=== PATIENT | male | born 1955 | race Caucasian/White ===

== ENCOUNTER 2016-09-10 22:38 | Observation (INO) | payer OTHER ==
[2016-09-10] MEDS ORDERED: Zithromax 500 MG/ 250 ML NaCl Premix 250 ML IV ONE ×2 (22:44→23:12)
[2016-09-10] MEDS ORDERED: Pepcid 20 MG VIAL IV ONE ×2 (22:44→23:12)
[2016-09-10] MEDS ORDERED: ROCEPHIN 1 Gm-D5w 50 ml Bag** 50 ML IV ONE ×2 (22:44→23:12)
[2016-09-10] MEDS ORDERED: PROVENTIL 2.5 MG/3 ML NEB IH ONE ×2 (22:44→22:56)
[2016-09-10] MEDS ORDERED: Sodium Chloride 0.9% 1000 ML 1,000 ML IV SCH (22:45)
[2016-09-10] MEDS ORDERED: Ativan 2 MG/1 ML VIAL IV ONE (22:46)
[2016-09-10 23:03] LABS: BASOPHIL % 0.4 % (0.0-0.4); Eosinophil % 1.5 % (0.00-5.0); Granulocytes % 59.8 % (36.0-66.0); Lymphocytes % 28.9 % (24.0-44.0); Mean Cell Volume 98.7 fl (78-100); Mean Corpuscular Hemoglobin 32.4 pg (26-32); Mean Platelet Volume 9.3 fl (6-9.5); Monocytes % 9.4 % (0.0-12.0); Platelet Count 188 K/mm3 (150-450); Red Blood Count 4.76 M/mm3 (4.1-5.6); Red Cell Distribution Width 14.4 % (11.5-14.0)
--- NOTE | 2016-09-10 23:09 | ERPHSYRPT ---
- History of Present Illness Time Seen by Provider: 09/10/16 22:40 Source: patient, EMS (gave 2 alb nebs, 1 atrovent, 125mg solumedrol) Patient Subjective Stated Complaint: Pt sts increased shortness of breath x 1 week with exertion. Sts can't get up and walk around much at home due to shortness of breath. Pt sts cough with intermittent sputum production. Sts wheezing. Denies pain, denies chest pain. Denies fever, N/V/D. Triage Nursing Assessment: Pt alert, oriented, answers all questions appropriately in 2-3 word bursts. Skin pink, warm, dry. Resps labored with any exertion. Lung sounds coarse with wheezing all talley. SPO2 90% room air. Pt with pursed lip breathing, suprasternal retractions. Physician History: CC: short of air Hx: 61 [facility] with one week hx of cough, increased wheezing and shortness of air. No fever or chills. Some cough production. No chest pain. Had increased ROMERO today so called EMS. He used puffers at home without relief. Symptoms moderately severe and worse. He smokes quite heavily and he is a heavy daily drinker of alcohol but only drank 2 beers today. Allergies/Adverse Reactions: No Known Drug Allergies Allergy (Verified 09/10/16 22:39) Home Medications: Albuterol/Ipratropium cc [Combivent Inhaler COMMON CANISTER] 15 gm IH QID [History] Budesonide/Formoterol Fumarate [Symbicort 160-4.5 Mcg Inhaler] 10.2 gm IH BID [History] Albuterol 0 gm IH UD 04/28/15 [History] Hx Tetanus, Diphtheria Vaccination/Date Given: No Hx Influenza Vaccination/Date Given: Yes Hx Pneumococcal Vaccination/Date Given: No - Review of Systems Constitutional: Malaise, Weakness, No Fever, No Chills Eyes: No Symptoms Respiratory: Cough, Dyspnea, Wheezing Cardiac: No Chest Pain Abdominal/Gastrointestinal: No Abdominal Pain, No Nausea, No Vomiting Skin: No Rash Neurological: No Headache All Other Systems: Reviewed and Negative - Past Medical History Pertinent Past Medical History: Yes Neurological History: No Pertinent History ENT History: No Pertinent History Cardiac History: No Pertinent History Respiratory History: COPD, Other Endocrine Medical History: No Pertinent History Musculoskeletal History: No Pertinent History GI Medical History: No Pertinent History Psycho-Social History: Other - Past Surgical History Past Surgical History: No - Social History Smoking Status: Current every day smoker How long have you smoked: 50 Exposure to second hand smoke: No Alcohol Use: Chronic (daily throughout the day including work time) Drug Use: none Patient Lives Alone: No - Nursing Vital Signs Nursing Vital Signs: Initial Vital Signs Pulse Rate 100 Respiratory Rate 26 Blood Pressure [] 118/62 Pain Intensity 0 - Physical Exam General Appearance: alert, thin Eye Exam: PERRL/EOMI Neck Exam: normal inspection, non-tender, supple Respiratory Exam: respiratory distress (mild), wheezing Cardiovascular/Chest Exam: normal heart sounds, regular rate/rhythm Abdominal/Gastrointestinal Exam: soft, No tenderness, No distention Extremity Exam: non-tender, normal range of motion, no calf tenderness Neurologic Exam: alert, 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, cooperative, sensation nml, No motor deficits Skin Exam: warm, dry, No rash SpO2 Interpretation: borderline oxygenation SpO2: 90 Oxygen Delivery: Nasal Cannula - Course Nursing assessment & vital signs reviewed: Yes EKG Interpreted by Me: RATE (98), Sinus Rhythm, Right Bundle Branch Block ( incomplete), Non-specific ST Changes, Other (no change from prior) - Radiology Exams cxr X-ray Interpretation: Teleradiologist Report, No Pneumonia, No Pneumothorax, Nml Mediastinum Ordered Tests: Active Orders 24 hr Category Date Time Status CO2 Monitoring STAT Care 09/10/16 22:47 Completed Transmitter Supervisor STAT Care 09/10/16 22:44 Active Clean Catch Urine Specimen STAT Care 09/10/16 22:44 Active EKG-ER Only STAT Care 09/10/16 22:44 Active IV Insertion STAT Care 09/10/16 22:44 Active Oxygen-ED Only NASAL CANNULA 2 lpm Care 09/10/16 22:44 Active Pulse Oximetry (ED) STAT Care 09/10/16 22:44 Active CHEST 1 VIEW (PORTABLE) Stat Exams 09/10/16 22:45 Taken BLOOD CULTURE Stat Lab 09/10/16 22:57 Received CBC W DIFF Stat Lab 09/10/16 22:45 Completed CMP Stat Lab 09/10/16 22:45 Completed Ethyl Alcohol,Urine Stat Lab 09/10/16 23:20 Completed Lactic Acid Urgent Lab 09/10/16 22:44 Completed Lactic Acid Urgent Lab 09/11/16 00:30 Completed MAGNESIUM Stat Lab 09/10/16 22:45 Completed PROTIME WITH INR Stat Lab 09/10/16 22:45 Completed TROPONIN Stat Lab 09/10/16 22:45 Completed UA Stat Lab 09/10/16 23:20 Completed VENOUS BLOOD GAS Stat Lab 09/11/16 00:56 Completed VENOUS BLOOD GAS Urgent Lab 09/10/16 22:44 Completed Respiratory Nebulizer STAT RT 09/10/16 22:45 Completed Medication Summary Generic Name Dose Route Start Last Admin Trade Name Freq PRN Reason Stop Dose Admin Sodium Chloride 1,000 mls @ 100 mls/hr 09/10/16 22:45 09/10/16 23:21 Sodium Chloride 0.9% 1000 Ml IV 10/10/16 22:44 100 mls/hr .Q10H ALYSSA Administration Discontinued Medications Generic Name Dose Route Start Last Admin Trade Name Freq PRN Reason Stop Dose Admin Albuterol Sulfate 2.5 mg 09/10/16 22:44 09/10/16 22:59 Proventil 2.5 Mg/3 Ml Neb IH 09/10/16 22:45 2.5 mg STAT ONE Administration Albuterol Sulfate Confirm 09/10/16 22:56 Proventil 2.5 Mg/3 Ml Neb Administered 09/10/16 22:57 Dose 2.5 mg IH .STK-MED ONE Famotidine 20 mg 09/10/16 22:44 09/11/16 00:02 Pepcid 20 Mg Vial IV 09/10/16 22:45 20 mg STAT ONE Administration Famotidine Confirm 09/10/16 23:12 Pepcid 20 Mg Vial Administered 09/10/16 23:13 Dose 20 mg IV .STK-MED ONE Azithromycin 250 mls @ 125 mls/hr 09/10/16 22:44 09/11/16 00:02 Zithromax 500 Mg/ 250 Ml Nacl Premix IV 09/11/16 00:43 125 mls/hr STAT ONE Administration Ceftriaxone Sodium/Dextrose 50 mls @ 100 mls/hr 09/10/16 22:44 09/10/16 23:21 Rocephin 1 Gm-D5w 50 Ml Bag IV 09/10/16 23:13 100 mls/hr STAT ONE Administration Azithromycin Confirm 09/10/16 23:12 Zithromax 500 Mg/ 250 Ml Nacl Premix Administered 09/10/16 23:13 Dose 250 mls @ ud IV .STK-MED ONE Ceftriaxone Sodium/Dextrose Confirm 09/10/16 23:12 Rocephin 1 Gm-D5w 50 Ml Bag Administered 09/10/16 23:13 Dose 50 mls @ ud IV .STK-MED ONE Lorazepam 1 mg 09/10/16 22:46 09/10/16 23:21 Ativan 2 Mg/1 Ml Vial IV 09/10/16 22:47 1 mg STAT ONE Administration Lorazepam Confirm 09/10/16 23:11 Ativan 2 Mg/1 Ml Vial Administered 09/10/16 23:12 Dose 2 mg .ROUTE .STK-MED ONE Lab/Rad Data: Laboratory Result Diagrams 09/10/16 22:45 09/10/16 22:45 Laboratory Results 09/11/16 09/11/16 09/10/16 Range/Units 00:56 00:30 23:20 WBC (4.0-10.5) K/mm3 RBC (4.1-5.6) M/mm3 Hgb (12.5-18.0) gm/dl Hct (42-50) % MCV (78-100) fl MCH (26-32) pg MCHC (32-36) g/dl RDW (11.5-14.0) % Plt Count (150-450) K/mm3 MPV (6-9.5) fl Gran % (36.0-66.0) % Lymphocytes % (24.0-44.0) % Monocytes % (0.0-12.0) % Eosinophils % (0.00-5.0) % Basophils % (0.0-0.4) % Basophils # (0-0.4) INR (0.8-3.0) VBG pH 7.33 (7.32-7.42) VBG pCO2 at Pat Temp 47 (42-55) mm/Hg VBG pO2 at Pat Temp 56 H (25-40) mm/Hg VBG HCO3 24.8 (22-28) meq/L VBG O2 Sat (Camilo) 91.3 L (95-100) VBG Base Excess -1.6 (-2.0-2.0) VBG Hemoglobin 15.7 VBG Carboxyhemoglobin 7.1 H* (0.0-6.9) % T HGB POC Potassium 3.8 (3.5-5.1) Sodium (136-145) mEq/L Potassium (3.5-5.1) mEq/L Chloride (98-107) mEq/L Carbon Dioxide (21-32) mEq/L Anion Gap (5-15) MEQ/L BUN (9-20) mg/dL Creatinine (0.55-1.30) mg/dl Estimated GFR ML/MIN Glucose (70-110) MG/DL Lactic Acid 1.8 (0.4-2.0) Calcium (8.5-10.1) mg/dL Magnesium (1.8-2.4) mg/dL Total Bilirubin (0.2-1.0) mg/dL AST (15-37) U/L ALT (12-78) U/L Alkaline Phosphatase (46-116) U/L Troponin I (0.000-0.056) ng/ml Serum Total Protein (6.4-8.2) gm/dL Albumin (3.4-5.0) g/dL Ur Collection Type Urine Color (YELLOW) Urine Appearance (CLEAR) Urine pH 5.5 (5-6) Ur Specific [place] (1.005-1.025) Urine Protein (Negative) Urine Glucose (UA) (NEGATIVE) mg/dL Urine Ketones (NEGATIVE) Urine Nitrite (NEGATIVE) Urine Bilirubin (NEGATIVE) Urine Urobilinogen (0-1) mg/dL Urine WBC (Auto) (NEGATIVE) Urine RBC (Auto) (0-5) Luther/ul Urine Ethyl Alcohol 99 H (0.00-20) mg/dl Specimen Received 09/10/16 09/10/16 09/10/16 Range/Units 23:20 22:45 22:45 WBC (4.0-10.5) K/mm3 RBC (4.1-5.6) M/mm3 Hgb (12.5-18.0) gm/dl Hct (42-50) % MCV (78-100) fl MCH (26-32) pg MCHC (32-36) g/dl RDW (11.5-14.0) % Plt Count (150-450) K/mm3 MPV (6-9.5) fl Gran % (36.0-66.0) % Lymphocytes % (24.0-44.0) % Monocytes % (0.0-12.0) % Eosinophils % (0.00-5.0) % Basophils % (0.0-0.4) % Basophils # (0-0.4) INR 0.96 (0.8-3.0) VBG pH (7.32-7.42) VBG pCO2 at Pat Temp (42-55) mm/Hg VBG pO2 at Pat Temp (25-40) mm/Hg VBG HCO3 (22-28) meq/L VBG O2 Sat (Camilo) (95-100) VBG Base Excess (-2.0-2.0) VBG Hemoglobin VBG Carboxyhemoglobin (0.0-6.9) % T HGB POC Potassium (3.5-5.1) Sodium 140 (136-145) mEq/L Potassium 3.5 (3.5-5.1) mEq/L Chloride 101 (98-107) mEq/L Carbon Dioxide 23.0 (21-32) mEq/L Anion Gap 19.1 H (5-15) MEQ/L BUN 19 (9-20) mg/dL Creatinine 0.97 (0.55-1.30) mg/dl Estimated GFR > 60 ML/MIN Glucose 108 (70-110) MG/DL Lactic Acid (0.4-2.0) Calcium 9.1 (8.5-10.1) mg/dL Magnesium 1.7 L (1.8-2.4) mg/dL Total Bilirubin 0.3 (0.2-1.0) mg/dL AST 19 (15-37) U/L ALT 19 (12-78) U/L Alkaline Phosphatase 70 (46-116) U/L Troponin I < 0.017 (0.000-0.056) ng/ml Serum Total Protein 7.3 (6.4-8.2) gm/dL Albumin 3.4 (3.4-5.0) g/dL Ur Collection Type CLEAN CATCH Urine Color YELLOW (YELLOW) Urine Appearance CLEAR (CLEAR) Urine pH 5.5 (5-6) Ur Specific [place] 1.010 (1.005-1.025) Urine Protein NEGATIVE (Negative) Urine Glucose (UA) NEGATIVE (NEGATIVE) mg/dL Urine Ketones TRACE (NEGATIVE) Urine Nitrite NEGATIVE (NEGATIVE) Urine Bilirubin NEGATIVE (NEGATIVE) Urine Urobilinogen 0.2 (0-1) mg/dL Urine WBC (Auto) NEGATIVE (NEGATIVE) Urine RBC (Auto) NEGATIVE (0-5) Luther/ul Urine Ethyl Alcohol (0.00-20) mg/dl Specimen Received 09/10/16:0 09/10/16 09/10/16 Range/Units 22:45 22:44 WBC 11.0 H (4.0-10.5) K/mm3 RBC 4.76 (4.1-5.6) M/mm3 Hgb 15.4 (12.5-18.0) gm/dl Hct 47.0 (42-50) % MCV 98.7 (78-100) fl MCH 32.4 H (26-32) pg MCHC 32.8 (32-36) g/dl RDW 14.4 H (11.5-14.0) % Plt Count 188 (150-450) K/mm3 MPV 9.3 (6-9.5) fl Gran % 59.8 (36.0-66.0) % Lymphocytes % 28.9 (24.0-44.0) % Monocytes % 9.4 (0.0-12.0) % Eosinophils % 1.5 (0.00-5.0) % Basophils % 0.4 (0.0-0.4) % Basophils # 0.04 (0-0.4) INR (0.8-3.0) VBG pH 7.36 (7.32-7.42) VBG pCO2 at Pat Temp 46 (42-55) mm/Hg VBG pO2 at Pat Temp 48 H (25-40) mm/Hg VBG HCO3 26.0 (22-28) meq/L VBG O2 Sat (Cam[place]) 87.5 L (95-100) VBG Base Excess 0.0 (-2.0-2.0) VBG Hemoglobin 15.6 VBG Carboxyhemoglobin 8.4 H* (0.0-6.9) % T HGB POC Potassium 3.6 (3.5-5.1) Sodium (136-145) mEq/L Potassium (3.5-5.1) mEq/L Chloride (98-107) mEq/L Carbon Dioxide (21-32) mEq/L Anion Gap (5-15) MEQ/L BUN (9-20) mg/dL Creatinine (0.55-1.30) mg/dl Estimated GFR ML/MIN Glucose (70-110) MG/DL Lactic Acid 2.7 H (0.4-2.0) Calcium (8.5-10.1) mg/dL Magnesium (1.8-2.4) mg/dL Total Bilirubin (0.2-1.0) mg/dL AST (15-37) U/L ALT (12-78) U/L Alkaline Phosphatase (46-116) U/L Troponin I (0.000-0.056) ng/ml Serum Total Protein (6.4-8.2) gm/dL Albumin (3.4-5.0) g/dL Ur Collection Type Urine Color (YELLOW) Urine Appearance (CLEAR) Urine pH (5-6) Ur Specific [place] (1.005-1.025) Urine Protein (Negative) Urine Glucose (UA) (NEGATIVE) mg/dL Urine Ketones (NEGATIVE) Urine Nitrite (NEGATIVE) Urine Bilirubin (NEGATIVE) Urine Urobilinogen (0-1) mg/dL Urine WBC (Auto) (NEGATIVE) Urine RBC (Auto) (0-5) Luther/ul Urine Ethyl Alcohol (0.00-20) mg/dl Specimen Received - Progress Progress Note: 09/11/16 00:17 Sleeping. Son at bedside. Pulse ox 89-90 on 2L. Still somewhat breathless but resting. Called [facility] admitting- they will check beds and call back. 09/11/16 00:42 [facility] called back and advised Dr Demetri Bob advised admission here at [facility]. 09/11/16 01:03 Repeat lactic improved. pH stable. Called Dr Vogt () and will place in ICU observation for COPD treatment. Will need to observe for alcohol withdrawal. Will see patient in: hospital (observation) Counseled pt/family regarding: lab results, diagnosis, need for follow-up, rad results - Departure Time of Disposition: 01:05 Departure Disposition: Observation Clinical Impression: COPD exacerbation, Chronic alcohol use, Smoker Condition: Fair Critical Care Time: Yes Critical Care Time(excluding separately billable procedures): 30-74 minutes Referrals: [facility]OS[facility],'[facility] [Primary Care Provider] -
[2016-09-10 23:10] LABS: INR 0.96 (0.8-3.0); PROTIME 10.8 SECONDS (8.83-12.87)
[2016-09-10 23:10] LABS: Lactic Acid 2.7 (0.4-2.0); VBG CARBOXYHEMOGLOBIN 8.4 % T HGB (0.0-6.9); VBG HEMOGLOBIN 15.6; VBG O2 SATURATION 87.5 (95-100); VBG POTASSIUM 3.6 (3.5-5.1); VBG pH 7.36 (7.32-7.42)
[2016-09-10] MEDS ORDERED: Ativan 2 MG/1 ML VIAL ONE (23:11)
[2016-09-10] MEDS ORDERED: Sodium Chloride 0.9% 1000 ML 1,000 ML ONE (23:12)
[2016-09-10 23:21] LABS: ALBUMIN 3.4 g/dL (3.4-5.0); ALKALINE PHOSPHATASE 70 U/L (46-116); ANION GAP 19.1 MEQ/L (5-15); BILIRUBIN,TOTAL 0.3 mg/dL (0.2-1.0); BLOOD UREA NITROGEN 19 mg/dL (9-20); CHLORIDE 101 mEq/L (98-107); Glucose 108 MG/DL (70-110); MAGNESIUM 1.7 mg/dL (1.8-2.4); Potassium 3.5 mEq/L (3.5-5.1); SGOT/AST 19 U/L (15-37); SGPT/ALT 19 U/L (12-78); SODIUM 140 mEq/L (136-145); Total Protein 7.3 gm/dL (6.4-8.2)
[2016-09-10 23:31] LABS: TROPONIN < 0.017 ng/ml (0.000-0.056)
[2016-09-10 23:33] LABS: COMPLETE URINE MICROSCOPIC? NO; Collection Type CLEAN CATCH; Ph 5.5 (5-6)
[2016-09-11 00:57] LABS: VBG BASE EXCESS -1.6 (-2.0-2.0); VBG CARBOXYHEMOGLOBIN 7.1 % T HGB (0.0-6.9); VBG HCO3- 24.8 meq/L (22-28); VBG HEMOGLOBIN 15.7; VBG O2 SATURATION 91.3 (95-100); VBG POTASSIUM 3.8 (3.5-5.1); VBG pH 7.33 (7.32-7.42)
[2016-09-11] MEDS ORDERED: TYLENOL 325 MG PO PRN (01:42)
[2016-09-11] MEDS: DUONEB 0.5-3 MG/3 ml Neb IH SCH ×6 (02:01→22:23)
[2016-09-11] MEDS ORDERED: PROVENTIL 2.5 MG/3 ML NEB IH PRN (03:42)
[2016-09-11] MEDS: Advair Hfa 230/21 Mcg COMMON CANISTER IH SCH ×2 (06:40→18:36)
--- NOTE | 2016-09-11 08:57 | XRAY ---
Indication: Cough. COPD. Comparison: April 28, 2015. Portable apical lordotic chest slightly degraded by respiration artifact. Lungs again hyperinflated with a few calcified granulomas. No focal infiltrate, consolidation, or large effusion. Heart and mediastinal structures stable and within normal limits. Bony thorax intact again with mild degenerative changes. Impression: Stable nonacute chest with chronic features. Comment: Preliminary interpretation was made by [facility]. No critical discrepancy.
[2016-09-11] MEDS: Pepcid 20 MG VIAL IV SCH ×2 (10:28→21:38)
--- NOTE | 2016-09-11 11:02 | PCM.SSS ---
History of Present Illness - Chief Complaint Chief Complaint: Shortness of Breath History of Present Illness: Mr.MCKEE GREGORIO is a 61 year old male. patient of [place] arrived by EMS with one week hx of cough, increased wheezing and shortness of air. No fever or chills. Some cough production. No chest pain. Had increased ROMERO today so called EMS. He used puffers at home without relief. Symptoms moderately severe and worse. He smokes quite heavily and he is a heavy daily drinker of alcohol but only drank 2 beers today. - Review of Systems Constitutional: No Fever, No Chills Eyes: No Symptoms Ears, Nose, & Throat: No Symptoms Respiratory: Cough, Short Of Breath Cardiac: No Chest Pain, No Edema, No Syncope Abdominal/Gastrointestinal: No Abdominal Pain, No Nausea, No Vomiting, No Diarrhea Genitourinary Symptoms: No Dysuria Musculoskeletal: No Back Pain, No Neck Pain Skin: No Rash Neurological: No Dizziness, No Focal Weakness, No Sensory Changes Psychological: No Symptoms Endocrine: No Symptoms Hematologic/Lymphatic: No Symptoms Immunological/Allergic: No Symptoms Medications & Allergies Home Medications: Home Medication List Albuterol/Ipratropium cc [Combivent Inhaler COMMON CANISTER] 15 gm IH QID [History Confirmed 09/10/16] Budesonide/Formoterol Fumarate [Symbicort 160-4.5 Mcg Inhaler] 10.2 gm IH BID [History Confirmed 09/10/16] Albuterol 0 gm IH UD 04/28/15 [History Confirmed 09/10/16] Allergies/Adverse Reactions: Allergies Allergy/AdvReac Type Severity Reaction Status Date / Time No Known Drug Allergies Allergy Verified 09/10/16 22:39 - Past Medical History Past Medical History: Yes Neurological History: No Pertinent History ENT History: No Pertinent History Cardiac History: No Pertinent History Respiratory History: COPD, Other Endocrine Medical History: No Pertinent History Musculoskelatal History: No Pertinent History GI Medical History: No Pertinent History Pyscho-Social History: Other - Past Surgical History Past Surgical History: No - Social History Smoking Status: Current every day smoker How long have you smoked: 50 yrs Exposure to second hand smoke: Yes Alcohol: Daily Drug Use: none - Physical Exam Vital Signs: Vital Signs - 24 hr Temp Pulse Resp BP Pulse Ox 09/11/16 10:50 97 05/01/17 10:46 85 28 H 94 L 09/11/16 10:00 88 28 H 94 L 09/11/16 08:00 97.4 F 92 H 28 H 112/71 95 09/11/16 06:41 85 24 96 09/11/16 06:00 88 23 94 L 09/11/16 04:00 97.4 F 94 H 24 124/76 94 L 09/11/16 03:43 75 27 H 94 L 09/11/16 03:00 103 H 27 H 91 L 09/11/16 01:50 97.7 F 104 H 28 H 117/72 90 L 09/11/16 01:07 104 H 28 H 118/69 90 L 09/11/16 01:06 90 L 09/11/16 00:08 100 H 26 H 118/62 90 L 09/10/16 23:29 101 H 24 135/75 90 L 09/10/16 23:11 91 H 25 H 91 L 09/10/16 22:56 90 L 09/10/16 22:53 24 90 L 09/10/16 22:39 97.7 F 101 H 28 H 135/75 90 L Oxygen-Last 24 hours O2 Percentage 50% O2 Percentage 50% O2 Percentage 50% O2 Percentage 50% O2 Percentage 5 Liters = 40% O2 Percentage 2 Liters = 28% O2 Percentage 2 Liters = 28% O2 Percentage 2 Liters = 28% O2 Percentage 2 Liters = 28% General Appearance: no apparent distress, alert Neurologic Exam: alert, 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, cooperative, normal mood/affect, nml cerebellar function, nml station & gait, sensation nml, No motor deficits Eye Exam: PERRL/EOMI, eyes nml inspection Ears, Nose, Throat Exam: normal ENT inspection, TMs normal, pharynx normal, moist mucous membranes Neck Exam: normal inspection, non-tender, supple, full range of motion Respiratory Exam: diminished breath sounds, wheezing, No respiratory distress Cardiovascular Exam: regular rate/rhythm, normal heart sounds, normal peripheral pulses Gastrointestinal/Abdomen Exam: soft, normal bowel sounds, No tenderness, No mass Back Exam: normal inspection, normal range of motion, No CVA tenderness, No vertebral tenderness Extremity Exam: normal inspection, normal range of motion, pelvis stable Skin Exam: normal color, warm, dry, No rash Lymphatic Exam: No adenopathy Results - Other Procedures and Tests Respiratory Therapy 09/11/16 03:00 Respiratory Nebulizer Q4H 09/11/16 03:43 neb [Respiratory Nebulizer] UD 09/11/16 07:00 Respiratory MDI BID Assessment/Plan (1) COPD exacerbation Current Visit: Yes Status: Acute Assessment & Plan: resolved Code(s): J44.1 - CHRONIC OBSTRUCTIVE PULMONARY DISEASE W (ACUTE) EXACERBATION (2) COPD (chronic obstructive pulmonary disease) Current Visit: Yes Status: Resolved Qualifiers: COPD type: COPD with acute exacerbation Qualified Code(s): J44.1 - Chronic obstructive pulmonary disease with (acute) exacerbation (3) COPD exacerbation Current Visit: Yes Status: Acute Code(s): J44.1 - CHRONIC OBSTRUCTIVE PULMONARY DISEASE W (ACUTE) EXACERBATION Hospital Summary - Hospital Course Hospital Course: Chief Complaint Diagnosis Shortness of Breath Allergies Allergy/AdvReac Type Severity Reaction Status Date / Time No Known Drug Allergies Allergy Verified 09/10/16 22:39 Vital Signs (Last 24 hours) Temp Pulse Resp BP Pulse Ox 09/11/16 10:50 97 09/11/16 10:46 85 28 H 94 L 09/11/16 10:00 88 28 H 94 L 09/11/16 08:00 97.4 F 92 H 28 H 112/71 95 09/11/16 06:41 85 24 96 09/11/16 06:00 88 23 94 L 09/11/16 04:00 97.4 F 94 H 24 124/76 94 L 09/11/16 03:43 75 27 H 94 L 09/11/16 03:00 103 H 27 H 91 L 09/11/16 01:50 97.7 F 104 H 28 H 117/72 90 L 09/11/16 01:07 104 H 28 H 118/69 90 L 09/11/16 01:06 90 L 09/11/16 00:08 100 H 26 H 118/62 90 L 09/10/16 23:29 101 H 24 135/75 90 L 09/10/16 23:11 91 H 25 H 91 L 09/10/16 22:56 90 L 09/10/16 22:53 24 90 L 09/10/16 22:39 97.7 F 101 H 28 H 135/75 90 L Current Medications Generic Name Dose Route Start Last Admin Trade Name Freq PRN Reason Stop Dose Admin Acetaminophen 650 mg 09/11/16 01:42 Tylenol 325 Mg PO 10/11/16 01:41 Q4H PRN PRN PAIN AND/OR FEVER Albuterol Sulfate 2.5 mg 09/11/16 03:42 09/11/16 03:46 Proventil 2.5 Mg/3 Ml Neb IH 10/11/16 03:41 2.5 mg Q2H PRN PRN Administration SHORTNESS OF BREATH/WHEEZING Albuterol/Ipratropium 3 ml 09/11/16 03:00 09/11/16 10:43 Duoneb 0.5-3 Mg/3 Ml Neb IH 10/11/16 02:59 3 ml Q4HRT ALYSSA Administration Famotidine 20 mg 09/11/16 10:00 09/11/16 10:28 Pepcid 20 Mg Vial IV 10/11/16 09:59 20 mg Q12HT ALYSSA Administration Ceftriaxone Sodium/Dextrose 50 mls @ 100 mls/hr 09/11/16 22:00 Rocephin 1 Gm-D5w 50 Ml Bag IV 10/11/16 21:59 Q24H22 ALYSSA Azithromycin 250 mls @ 125 mls/hr 09/11/16 22:00 Zithromax 500 Mg/ 250 Ml Nacl Premix IV 10/11/16 21:59 Q24H22 ALYSSA Fluticasone/Salmeterol 2 puff 09/11/16 07:00 09/11/16 06:40 Advair Hfa 230/21 Mcg Common Canister* IH 10/11/16 06:59 2 puff BIDRT ALYSSA Administration Discontinued Medications Generic Name Dose Route Start Last Admin Trade Name Freq PRN Reason Stop Dose Admin Albuterol Sulfate 2.5 mg 09/10/16 22:44 09/10/16 22:59 Proventil 2.5 Mg/3 Ml Neb IH 09/10/16 22:45 2.5 mg STAT ONE Administration Albuterol Sulfate Confirm 09/10/16 22:56 Proventil 2.5 Mg/3 Ml Neb Administered 09/10/16 22:57 Dose 2.5 mg IH .STK-MED ONE Famotidine 20 mg 09/10/16 22:44 09/11/16 00:02 Pepcid 20 Mg Vial IV 09/10/16 22:45 20 mg STAT ONE Administration Famotidine Confirm 09/10/16 23:12 Pepcid 20 Mg Vial Administered 09/10/16 23:13 Dose 20 mg IV .STK-MED ONE Azithromycin 250 mls @ 125 mls/hr 09/10/16 22:44 09/11/16 00:02 Zithromax 500 Mg/ 250 Ml Nacl Premix IV 09/11/16 00:43 125 mls/hr STAT ONE Administration Ceftriaxone Sodium/Dextrose 50 mls @ 100 mls/hr 09/10/16 22:44 09/10/16 23:21 Rocephin 1 Gm-D5w 50 Ml Bag IV 09/10/16 23:13 100 mls/hr STAT ONE Administration Sodium Chloride 1,000 mls @ 100 mls/hr 09/10/16 22:45 09/10/16 23:21 Sodium Chloride 0.9% 1000 Ml IV 10/10/16 22:44 100 mls/hr .Q10H ALYSSA Administration Azithromycin Confirm 09/10/16 23:12 Zithromax 500 Mg/ 250 Ml Nacl Premix Administered 09/10/16 23:13 Dose 250 mls @ ud IV .STK-MED ONE Ceftriaxone Sodium/Dextrose Confirm 09/10/16 23:12 Rocephin 1 Gm-D5w 50 Ml Bag Administered 09/10/16 23:13 Dose 50 mls @ ud IV .STK-MED ONE Sodium Chloride Confirm 09/10/16 23:12 Sodium Chloride 0.9% 1000 Ml Administered 09/10/16 23:13 Dose 1,000 mls @ ud .ROUTE .STK-MED ONE Lorazepam 1 mg 09/10/16 22:46 09/10/16 23:21 Ativan 2 Mg/1 Ml Vial IV 09/10/16 22:47 1 mg STAT ONE Administration Lorazepam Confirm 09/10/16 23:11 Ativan 2 Mg/1 Ml Vial Administered 09/10/16 23:12 Dose 2 mg .ROUTE .STK-MED ONE Intake & Output (Last 24 hours) 09/08/16 09/09/16 09/10/16 09/11/16 11:59 11:59 11:59 11:59 Intake Total 160 Output Total 600 Balance -440 Weight 67.132 kg Microbiology Results (Last 24 hours) 09/10/16 22:57 Blood - Pending 09/10/16 22:57 Blood Blood Culture - Pending 09/10/16 22:45 Blood - Pending 09/10/16 22:45 Blood Blood Culture - Pending Laboratory Results (Last 24 hours) 09/11/16 09/11/16 09/10/16 00:56 00:30 23:20 WBC RBC Hgb Hct MCV MCH MCHC RDW Plt Count MPV Gran % Lymphocytes % Monocytes % Eosinophils % Basophils % Basophils # INR VBG pH 7.33 VBG pCO2 at Pat Temp 47 VBG pO2 at Pat Temp 56 H VBG HCO3 24.8 VBG O2 Sat ([place]) 91.3 L VBG Base Excess -1.6 VBG Hemoglobin 15.7 VBG Carboxyhemoglobin 7.1 H* POC Potassium 3.8 Sodium Potassium Chloride Carbon Dioxide Anion Gap BUN Creatinine Estimated GFR Glucose Lactic Acid 1.8 Calcium Magnesium Total Bilirubin AST ALT Alkaline Phosphatase Troponin I Serum Total Protein Albumin Ur Collection Type Urine Color Urine Appearance Urine pH 5.5 Ur Specific [place] Urine Protein Urine Glucose (UA) Urine Ketones Urine Nitrite Urine Bilirubin Urine Urobilinogen Urine WBC (Auto) Urine RBC (Auto) Urine Ethyl Alcohol 99 H Specimen Received 09/10/16 09/10/16 09/10/16 23:20 22:45 22:45 WBC RBC Hgb Hct MCV MCH MCHC RDW Plt Count MPV Gran % Lymphocytes % Monocytes % Eosinophils % Basophils % Basophils # INR 0.96 VBG pH VBG pCO2 at Pat Temp VBG pO2 at Pat Temp VBG HCO3 VBG O2 Sat ([place]) VBG Base Excess VBG Hemoglobin VBG Carboxyhemoglobin POC Potassium Sodium 140 Potassium 3.5 Chloride 101 Carbon Dioxide 23.0 Anion Gap 19.1 H BUN 19 Creatinine 0.97 Estimated GFR > 60 Glucose 108 Lactic Acid Calcium 9.1 Magnesium 1.7 L Total Bilirubin 0.3 AST 19 ALT 19 Alkaline Phosphatase 70 Troponin I < 0.017 Serum Total Protein 7.3 Albumin 3.4 Ur Collection Type CLEAN CATCH Urine Color YELLOW Urine Appearance CLEAR Urine pH 5.5 Ur Specific [place] 1.010 Urine Protein NEGATIVE Urine Glucose (UA) NEGATIVE Urine Ketones TRACE Urine Nitrite NEGATIVE Urine Bilirubin NEGATIVE Urine Urobilinogen 0.2 Urine WBC (Auto) NEGATIVE Urine RBC (Auto) NEGATIVE Urine Ethyl Alcohol Specimen Received 09/10/16:2320 09/10/16 09/10/16 22:45 22:44 WBC 11.0 H RBC 4.76 Hgb 15.4 Hct 47.0 MCV 98.7 MCH 32.4 H MCHC 32.8 RDW 14.4 H Plt Count 188 MPV 9.3 Gran % 59.8 Lymphocytes % 28.9 Monocytes % 9.4 Eosinophils % 1.5 Basophils % 0.4 Basophils # 0.04 INR VBG pH 7.36 VBG pCO2 at Pat Temp 46 VBG pO2 at Pat Temp 48 H VBG HCO3 26.0 VBG O2 Sat ([place]) 87.5 L VBG Base Excess 0.0 VBG Hemoglobin 15.6 VBG Carboxyhemoglobin 8.4 H* POC Potassium 3.6 Sodium Potassium Chloride Carbon Dioxide Anion Gap BUN Creatinine Estimated GFR Glucose Lactic Acid 2.7 H Calcium Magnesium Total Bilirubin AST ALT Alkaline Phosphatase Troponin I Serum Total Protein Albumin Ur Collection Type Urine Color Urine Appearance Urine pH Ur Specific [place] Urine Protein Urine Glucose (UA) Urine Ketones Urine Nitrite Urine Bilirubin Urine Urobilinogen Urine WBC (Auto) Urine RBC (Auto) Urine Ethyl Alcohol Specimen Received Orders (Last 24 hours) Category Date Time Status Bedrest ROUTINE Activity 09/11/16 01:42 Active Admission/Status Order ROUTINE Care 09/11/16 01:42 Active CO2 Monitoring CONTINUOUS Care 09/11/16 01:42 Active CO2 Monitoring STAT Care 09/10/16 22:47 Completed Call Admit Doctor for Orders ON ADMISSION Care 09/11/16 01:42 Active Housing Assistant Property Manager STAT Care 09/10/16 22:44 Completed Clean Catch Urine Specimen STAT Care 09/10/16 22:44 Completed Code Status Order ROUTINE Care 09/11/16 01:42 Active EKG-ER Only STAT Care 09/10/16 22:44 Completed IV Care Q6H Care 09/11/16 01:42 Active IV Insertion STAT Care 09/10/16 22:44 Completed Intake and Output Q12H Care 09/11/16 01:42 Active Oxygen-ED Only NASAL CANNULA 2 lpm Care 09/10/16 22:44 Completed Pulse Oximetry (ED) STAT Care 09/10/16 22:44 Completed Katt Egan ROUTINE Care 09/11/16 01:42 Active Telemetry Q4H Care 09/11/16 01:42 Active Vital Signs Q2H Care 09/11/16 01:42 Active Regular Diet Diet 09/11/16 Breakfast Active CHEST 1 VIEW (PORTABLE) Stat Exams 09/10/16 22:45 Completed BLOOD CULTURE Stat Lab 09/10/16 22:57 Received CBC W DIFF Stat Lab 09/10/16 22:45 Completed CMP Stat Lab 09/10/16 22:45 Completed Ethyl Alcohol,Urine Stat Lab 09/10/16 23:20 Completed Lactic Acid Urgent Lab 09/10/16 22:44 Completed Lactic Acid Urgent Lab 09/11/16 00:30 Completed MAGNESIUM Stat Lab 09/10/16 22:45 Completed PROTIME WITH INR Stat Lab 09/10/16 22:45 Completed TROPONIN Stat Lab 09/10/16 22:45 Completed UA Stat Lab 09/10/16 23:20 Completed VENOUS BLOOD GAS Stat Lab 09/11/16 00:56 Completed VENOUS BLOOD GAS Urgent Lab 09/10/16 22:44 Completed Acetaminophen 325 mg [Tylenol 325 mg] Med 09/11/16 01:42 Active 650 mg PO Q4H PRN PRN Albuterol 2.5 mg/3 ml Neb [Proventil 2.5 mg/3 ml Neb Med 09/10/16 22:56 Discontinued ] 2.5 mg IH .STK-MED ONE Albuterol 2.5 mg/3 ml Neb [Proventil 2.5 mg/3 ml Neb Med 09/11/16 03:42 Active ] 2.5 mg IH Q2H PRN PRN Albuterol 2.5 mg/3 ml Neb [Proventil 2.5 mg/3 ml Neb Med 09/10/16 22:44 Discontinued ] 2.5 mg IH STAT ONE Albuterol/Ipratropium 3ml Neb* [DUONEB 0.5-3 MG/3 ml Med 09/11/16 03:00 Active Neb] 3 ml IH Q4HRT Azithromycin 500 mg/250 ml [Zithromax 500 MG/ 250 ML Med 09/11/16 22:00 Active NaCl Premix] 250 ml IV Q24H22 Azithromycin 500 mg/250 ml [Zithromax 500 MG/ 250 ML Med 09/10/16 22:44 Discontinued NaCl Premix] 250 ml IV STAT Azithromycin 500 mg/250 ml [Zithromax 500 MG/ 250 ML Med 09/10/16 23:12 Discontinued NaCl Premix] 250 ml IV UD Ceftriaxone 1 GM/50 ML PREMIX* [ROCEPHIN 1 Gm-D5w 50 ml Med 09/11/16 22:00 Active Bag] 50 ml IV Q24H22 Ceftriaxone 1 GM/50 ML PREMIX* [ROCEPHIN 1 Gm-D5w 50 ml Med 09/10/16 22:44 Discontinued Bag] 50 ml IV STAT Ceftriaxone 1 GM/50 ML PREMIX* [ROCEPHIN 1 Gm-D5w 50 ml Med 09/10/16 23:12 Discontinued Bag] 50 ml IV UD Famotidine 20 mg Vial [Pepcid 20 MG VIAL] Med 09/10/16 23:12 Discontinued 20 mg IV .STK-MED ONE Famotidine 20 mg Vial [Pepcid 20 MG VIAL] Med 09/11/16 10:00 Active 20 mg IV Q12HT Famotidine 20 mg Vial [Pepcid 20 MG VIAL] Med 09/10/16 22:44 Discontinued 20 mg IV STAT ONE Fluticasone/Salmeterol 230/21 [Advair Hfa 230/21 Mcg Med 09/11/16 07:00 Active COMMON CANISTER*] 2 puff IH BIDRT Lorazepam 2 mg/1 ml [Ativan 2 MG/1 ML VIAL] Med 09/10/16 22:46 Discontinued 1 mg IV STAT ONE Lorazepam 2 mg/1 ml [Ativan 2 MG/1 ML VIAL] Med 09/10/16 23:11 Discontinued 2 mg .ROUTE .STK-MED ONE NaCl 0.9% 1000 ml [Sodium Chloride 0.9% 1000 ML] 1,000 Med 09/10/16 22:45 Discontinued ml IV 100 mls/hr Oxygen NASAL CANNULA 2 lpm RT 09/11/16 01:42 Active Respiratory MDI BID RT 09/11/16 07:00 Active Respiratory Nebulizer Q4H RT 09/11/16 03:00 Active Respiratory Nebulizer STAT RT 09/10/16 22:45 Completed Respiratory Therapy Consult ROUTINE RT 09/11/16 01:42 Completed Smoking Cessation Education ONCE RT 09/11/16 02:02 Completed neb [Respiratory Nebulizer] UD RT 09/11/16 03:43 Active Transfer Order Routine Transfer 09/11/16 01:06 Completed - Vitals & Intake/Output Vital Signs: Vital Signs Temperature 97.4 F 09/11/16 08:00 Pulse Rate 85 09/11/16 10:46 Respiratory Rate 28 H 09/11/16 10:46 Blood Pressure 112/71 09/11/16 08:00 O2 Sat by Pulse Oximetry 97 09/11/16 10:50 Oxygen-Last Documented O2 Percentage 50% Intake & Output: Intake & Output 09/08/16 09/09/16 09/10/16 09/11/16 11:59 11:59 11:59 11:59 Intake Total 160 Output Total 600 Balance -440 Weight 67.132 kg - Lab Result Diagrams: 09/10/16 22:45 09/10/16 22:45 - Procedures and Test Procedures and Tests throughout Hospitalization: Therapy Orders & Screens 09/11/16 02:02 Smoking Cessation Education ONCE Comment: Diagnosis: Shortness of Breath Smoking Status: Current every day smoker How long have you smoked: 50 yrs Have you smoked in the past 12 months: Yes Approximately how many cigarettes per day: 2 pks Do you dip or chew tobacco: No 09/11/16 03:00 Respiratory Nebulizer Q4H Comment: duoneb q4 Diagnosis: Shortness of Breath 09/11/16 03:43 neb [Respiratory Nebulizer] UD Comment: albuterol q2prn Diagnosis: Shortness of Breath 09/11/16 07:00 Respiratory MDI BID Comment: ela 230/21 Diagnosis: Shortness of Breath - Discharge Discharge Date: 09/12/16 Disposition: Home, Self-Care Condition: Stable Prescriptions: No Action Budesonide/Formoterol Fumarate [Symbicort 160-4.5 Mcg Inhaler] 10.2 gm IH BID Albuterol/Ipratropium cc [Combivent Inhaler COMMON CANISTER] 15 gm IH QID Albuterol 0 gm IH UD Follow up with: HOSP[facility],'S [Primary Care Provider] -
[2016-09-11] MEDS ORDERED: ROCEPHIN 1 Gm-D5w 50 ml Bag** 50 ML IV SCH (22:00)
[2016-09-11] MEDS ORDERED: Zithromax 500 MG/ 250 ML NaCl Premix 250 ML IV SCH (22:00)
[2016-09-12] MEDS: DUONEB 0.5-3 MG/3 ml Neb IH SCH ×3 (02:30→10:54)
[2016-09-12] MEDS: Pepcid 20 MG VIAL IV SCH (11:17)
[2016-09-12 11:32] VITALS: O2SAT 93
[2016-09-12 16:24] VITALS: BP 128/89; PULSE 79
== END 2016-09-12 17:15 | disposition home or self-care (01) ==
LOC: ED 22:38 → ICU 09-11 01:25
PROVIDERS: ADMIT General Practice; ATTEND General Practice
DX: J44.1 Chronic obstructive pulmonary disease with (acute) exacerbation (principal)
CPT/HCPCS: 36415; 71010; 80053; 80320; 81002; 82805; 83605; 83735; 83986; 84484; 85025; 85610; 87040; 93005; 93041; 93268; 94640; 94760; 94770; 96360; 96361; 96365; 96367; 96374; 99285; G0378; J0456; J0696; J2060; A9270-GY

== ENCOUNTER 2016-09-29 18:25 | Emergency (ER) | payer OTHER ==
[2016-09-29] MEDS ORDERED: DUONEB 0.5-3 MG/3 ml Neb IH ONE ×2 (18:50→18:53)
[2016-09-29] MEDS ORDERED: solu-MEDROL 125 MG IV ONE (18:53)
[2016-09-29 19:02] LABS: A-aADO2 156; ALLEN TEST OK? YES; ARTERIAL BLD GAS O2 SATURATION 98.6 % (95-100); ARTERIAL BLOOD GAS BASE EXCESS -1.6 (-2.0-2.0); ARTERIAL BLOOD GAS FIO2 40 %; ARTERIAL BLOOD GAS PO2 82 mmHg (75-100); ARTERIAL BLOOD GAS pH 7.39 (7.35-7.45); Lactic Acid 2.5 (0.4-2.0)
[2016-09-29] MEDS ORDERED: solu-MEDROL 125 MG ONE (19:06)
--- NOTE | 2016-09-29 19:10 | ERPHSYRPT ---
- History of Present Illness Time Seen by Provider: 09/29/16 18:53 Source: patient Patient Subjective Stated Complaint: INCREASED SOB FOR TWO DAYS. HX COPD. WANTS OXYGEN AT HOME INCREASED AND AN ANTIBIOTIC AND THEN WANTS TO GO HOME Triage Nursing Assessment: AMBULATED TO ROOM PER SELF. OBVIOUS SOB NOTED. BREATH SOUNDS DIMINISHED. Physician History: CC: short of breath Hx: 61 y/o patient of [place] with hx of COPD. He had recent exacerbation requiring admission and went home on 5L N/C O2. He reports worsened cough, dyspnea for a couple of days. No fever or chills. Some phlegm. He would like abtx to go home. No chest pain. continues to smoke. Timing/Duration: day(s) (2) Severity of Dyspnea-Max: moderate Severity of Dyspnea-Current: moderate Allergies/Adverse Reactions: No Known Drug Allergies Allergy (Verified 09/29/16 18:52) Home Medications: Albuterol/Ipratropium cc [Combivent Inhaler COMMON CANISTER] 15 gm IH QID [History] Budesonide/Formoterol Fumarate [Symbicort 160-4.5 Mcg Inhaler] 10.2 gm IH BID [History] Albuterol 0 gm IH UD 04/28/15 [History] Hx Tetanus, Diphtheria Vaccination/Date Given: No Hx Influenza Vaccination/Date Given: Yes Hx Pneumococcal Vaccination/Date Given: No - Review of Systems Constitutional: Malaise, No Fever, No Chills Eyes: No Symptoms Ears, Nose, & Throat: No Symptoms Respiratory: Cough, Dyspnea, Wheezing Cardiac: No Chest Pain Abdominal/Gastrointestinal: No Abdominal Pain, No Nausea, No Vomiting Genitourinary Symptoms: No Symptoms Musculoskeletal: No Symptoms All Other Systems: Reviewed and Negative - Past Medical History Pertinent Past Medical History: Yes Neurological History: No Pertinent History ENT History: No Pertinent History Cardiac History: No Pertinent History Respiratory History: COPD, Other Endocrine Medical History: No Pertinent History Musculoskeletal History: No Pertinent History GI Medical History: No Pertinent History Psycho-Social History: Other - Past Surgical History Past Surgical History: No - Social History Smoking Status: Current every day smoker How long have you smoked: 50 yrs Exposure to second hand smoke: Yes Alcohol Use: Chronic (daily throughout the day including work time) Drug Use: none Patient Lives Alone: No - Nursing Vital Signs Nursing Vital Signs: Initial Vital Signs Temperature 97.4 F Temperature Source Oral Pulse Rate 97 Respiratory Rate 24 Blood Pressure [Left Arm] 101/55 Pain Intensity 0 - Physical Exam General Appearance: alert, other (breathless) Eye Exam: PERRL/EOMI Neck Exam: normal inspection, non-tender, supple Respiratory Exam: respiratory distress (tachycpnea), diminished breath sounds, wheezing Cardiovascular/Chest Exam: regular rate/rhythm Abdominal/Gastrointestinal Exam: soft, No tenderness, No distention Extremity Exam: non-tender, normal range of motion, no calf tenderness Neurologic Exam: alert, 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, cooperative (partially), sensation nml, No motor deficits Skin Exam: warm, dry, No rash SpO2 Interpretation: hypoxic, ABG ordered, O2 applied SpO2: 88 Oxygen Delivery: Room Air - Course Nursing assessment & vital signs reviewed: Yes - Radiology Exams cxr X-ray Interpretation: Reviewed by me (COPD), No Pneumonia, No Pneumothorax Ordered Tests: Active Orders 24 hr Category Date Time Status IV Insertion STAT Care 09/29/16 18:53 Active CHEST 2 VIEWS (PA AND LAT) Stat Exams 09/29/16 18:54 Taken ARTERIAL BLOOD GASES Urgent Lab 09/29/16 19:00 Results BLOOD CULTURE Stat Lab 09/29/16 19:49 Received CBC W DIFF Stat Lab 09/29/16 19:07 Completed CMP Stat Lab 09/29/16 19:07 Completed Lactic Acid Urgent Lab 09/29/16 19:00 Results Respiratory Nebulizer STAT RT 09/29/16 18:54 Completed Respiratory Nebulizer STAT RT 09/29/16 20:23 Active Medication Summary Discontinued Medications Generic Name Dose Route Start Last Admin Trade Name Freq PRN Reason Stop Dose Admin Albuterol/Ipratropium Confirm 09/29/16 18:50 Duoneb 0.5-3 Mg/3 Ml Neb Administered 09/29/16 18:51 Dose 3 ml IH .STK-MED ONE Albuterol/Ipratropium 3 ml 09/29/16 18:53 09/29/16 18:50 Duoneb 0.5-3 Mg/3 Ml Neb IH 09/29/16 18:54 3 ml STAT ONE Administration Levofloxacin/Dextrose 150 mls @ 100 mls/hr 09/29/16 19:24 09/29/16 20:18 Levofloxacin 750mg/150ml D5w IV 09/29/16 20:53 Not Given STAT ONE Levofloxacin 500 mg 09/29/16 19:25 09/29/16 19:31 Levofloxacin 500 Mg Tablet PO 09/29/16 19:26 500 mg STAT ONE Administration Levofloxacin 250 mg 09/29/16 19:25 09/29/16 19:31 Levofloxacin 250mg Tablet PO 09/29/16 19:26 250 mg STAT ONE Administration Levofloxacin Confirm 09/29/16 19:30 Levofloxacin 500 Mg Tablet Administered 09/29/16 19:31 Dose 500 mg .ROUTE .STK-MED ONE Levofloxacin Confirm 09/29/16 19:30 Levofloxacin 250mg Tablet Administered 09/29/16 19:31 Dose 250 mg .ROUTE .STK-MED ONE Methylprednisolone Sodium Succinate 125 mg 09/29/16 18:53 09/29/16 19:06 Solu-Medrol 125 Mg IV 09/29/16 18:54 125 mg STAT ONE Administration Methylprednisolone Sodium Succinate Confirm 09/29/16 19:06 Solu-Medrol 125 Mg Administered 09/29/16 19:07 Dose 125 mg .ROUTE .STK-MED ONE Lab/Rad Data: Laboratory Result Diagrams 09/29/16 19:07 09/29/16 19:07 Laboratory Results 09/29/16 09/29/16 09/29/16 Range/Units 19:07 19:07 19:00 WBC 10.6 H (4.0-10.5) K/mm3 RBC 4.74 (4.1-5.6) M/mm3 Hgb 15.3 (12.5-18.0) gm/dl Hct 45.8 (42-50) % MCV 96.6 (78-100) fl MCH 32.3 H (26-32) pg MCHC 33.4 (32-36) g/dl RDW 13.8 (11.5-14.0) % Plt Count 164 (150-450) K/mm3 MPV 9.7 H (6-9.5) fl Gran % 62.2 (36.0-66.0) % Lymphocytes % 27.7 (24.0-44.0) % Monocytes % 7.3 (0.0-12.0) % Eosinophils % 2.4 (0.00-5.0) % Basophils % 0.4 (0.0-0.4) % Basophils # 0.04 (0-0.4) Puncture Site RIGHT RADIAL pCO2 38 (35-45) mmHg pO2 82 (75-100) mmHg Base Excess -1.6 (-2.0-2.0) O2 Saturation 91.1 L (94-100) g/dF ABG pH 7.39 (7.35-7.45) ABG HCO3 23.0 (22-28) ABG O2 Sat (Measured) 98.6 (95-100) % Devon Test YES A-a Gradient 156 a/A Ratio 0.34 Hemoglobin 15.2 Carboxyhemoglobin 6.3 (0.0-6.9) % THgb Methemoglobin 1.2 L (1.4-1.5) % Potassium 3.5 3.4 L (3.5-5.1) Temperature 37.0 C POC O2 Flow Rate 40 % Sodium 137 (136-145) mEq/L Chloride 101 (98-107) mEq/L Carbon Dioxide 24.0 (21-32) mEq/L Anion Gap 15.5 H (5-15) MEQ/L BUN 12 (9-20) mg/dL Creatinine 1.07 (0.55-1.30) mg/dl Estimated GFR > 60 ML/MIN Glucose 125 H (70-110) MG/DL Lactic Acid 2.5 H (0.4-2.0) Calcium 8.9 (8.5-10.1) mg/dL Total Bilirubin 0.3 (0.2-1.0) mg/dL AST 21 (15-37) U/L ALT 19 (12-78) U/L Alkaline Phosphatase 55 (46-116) U/L Serum Total Protein 7.3 (6.4-8.2) gm/dL Albumin 3.4 (3.4-5.0) g/dL - Progress Progress Note: 09/29/16 19:09 Explained to pt that simple abtx won't be enough as he has fair amount of wheezing, COPD exacerbation, and hypoxema. 18ga PIV started left forearm and blood drawn for lab X 1 stick. 09/29/16 20:23 Explained to pt that he is still breathless. Advised he be admitted to the hospital for steroids, abtx, and breathing medications. He won't wear the oxygen here. Saturation 90-04% at present. He refuses to consider admission. Explained risk of worsening respiratory failure, . He understands and states he has to work tomorrow and doesn't have to follow up at [place] Sunday. Advised return for worsening or concerns. Levaquin and prednisone given. He already has oxygen and nebs at home. Advised no smoking. Counseled pt/family regarding: lab results, diagnosis, need for follow-up, rad results, smoking cessation - Departure Time of Disposition: 20:25 Departure Disposition: AMA Clinical Impression: COPD exacerbation, Smoker Condition: Fair Critical Care Time: No Referrals: HOSPITAL,'S [Primary Care Provider] - Instructions: Chronic Obstructive Pulmonary Disease, Shortness of Breath Additional Instructions: Rx prednisone. Rx levaquin. See [place] Sunday for recheck. Return for problems, worsening or concerns. Avoid smoking exposure. Stay with family tonite. Prescriptions: Levofloxacin [Levaquin] 1 tab PO DAILY #6 tablet Prednisone 20 mg [Deltasone 20 mg] 2 tab PO DAILY #10 tablet
[2016-09-29 19:12] LABS: BASOPHIL % 0.4 % (0.0-0.4); Eosinophil % 2.4 % (0.00-5.0); Granulocytes % 62.2 % (36.0-66.0); Lymphocytes % 27.7 % (24.0-44.0); Mean Cell Volume 96.6 fl (78-100); Mean Corpuscular Hemoglobin 32.3 pg (26-32); Mean Platelet Volume 9.7 fl (6-9.5); Monocytes % 7.3 % (0.0-12.0); Platelet Count 164 K/mm3 (150-450); Red Blood Count 4.74 M/mm3 (4.1-5.6); Red Cell Distribution Width 13.8 % (11.5-14.0); White Blood Count 10.6 K/mm3 (4.0-10.5)
[2016-09-29] MEDS ORDERED: LEVOFLOXACIN 750MG/150ML D5W 150 ML IV ONE (19:24)
[2016-09-29] MEDS ORDERED: Levofloxacin 250MG Tablet PO ONE (19:25)
[2016-09-29] MEDS ORDERED: Levofloxacin 500 MG Tablet PO ONE (19:25)
[2016-09-29] MEDS ORDERED: Levofloxacin 250MG Tablet ONE (19:30)
[2016-09-29] MEDS ORDERED: Levofloxacin 500 MG Tablet ONE (19:30)
[2016-09-29 19:31] LABS: ALBUMIN 3.4 g/dL (3.4-5.0); ALKALINE PHOSPHATASE 55 U/L (46-116); ANION GAP 15.5 MEQ/L (5-15); BILIRUBIN,TOTAL 0.3 mg/dL (0.2-1.0); BLOOD UREA NITROGEN 12 mg/dL (9-20); CHLORIDE 101 mEq/L (98-107); Glucose 125 MG/DL (70-110); Potassium 3.5 mEq/L (3.5-5.1); SGOT/AST 21 U/L (15-37); SGPT/ALT 19 U/L (12-78); SODIUM 137 mEq/L (136-145); Total Protein 7.3 gm/dL (6.4-8.2)
[2016-09-29] MEDS ORDERED: DELTASONE 20 MG PO ONE (20:22)
[2016-09-29] MEDS ORDERED: PROVENTIL 2.5 MG/3 ML NEB IH ONE ×2 (20:22→20:25)
[2016-09-29] MEDS ORDERED: DELTASONE 20 MG ONE (20:24)
[2016-09-29 20:40] VITALS: BP 128/89; PULSE 105; O2SAT 96
--- NOTE | 2016-09-30 08:07 | XRAY ---
Indication: Short of breath. Comparison: September 10, 2016. PA/lateral chest remains hyperinflated with calcified granulomas. No focal infiltrate, consolidation, or large effusion. Heart is not enlarged. Vascularity normal. Bony thorax intact with mild pectus excavatum deformity. Impression: Stable nonacute hyperinflated chest with chronic features.
== END 2016-09-29 20:35 | disposition left against medical advice (07) ==
LOC: ED 18:25
DX: J44.1 Chronic obstructive pulmonary disease with (acute) exacerbation (principal); F17.200 Nicotine dependence, unspecified, uncomplicated; R06.02 Shortness of breath
CPT/HCPCS: 36000; 36415; 36600; 71020; 80053; 82375; 82803; 83605; 85025; 87040; 94640; 96374; 99284; J2930; A9270-GY; J7506

== ENCOUNTER 2016-10-01 21:22 | Emergency (ER) | payer OTHER ==
[2016-10-01] MEDS ORDERED: DUONEB 0.5-3 MG/3 ml Neb IH ONE ×2 (22:46→22:57)
[2016-10-01] MEDS ORDERED: solu-MEDROL 125 MG IV ONE (22:46)
--- NOTE | 2016-10-01 22:50 | ERPHSYRPT ---
- History of Present Illness Time Seen by Provider: 10/01/16 22:42 Source: patient Exam Limitations: no limitations Patient Subjective Stated Complaint: pt states he has been coughing more today and has been using his inhaler for sob. Triage Nursing Assessment: pt alert and oriented. answers questions approp. pt arrive per ambulance. respirations short of breath at rest. accessory muscle use noted. o2 at 2l per nc, sat 96. lung sounds diminished on rt, insp and exp wheezes on lt. pt refusing iv access until seen by Physician History: This is a 61-year-old white male who was brought by medics with complaint of shortness of breath cough symptoms for a week he was seen 2 days ago for the same. Patient apparently at that time was given a prescription for prednisone and antibiotic however he did not fill it. Patient does smoke. He drinks daily. Past medical history includes COPD. Past surgical history includes chronic alcohol use Timing/Duration: week(s) (1 week) Activities at Onset: none Severity of Dyspnea-Max: moderate Severity of Dyspnea-Current: moderate Possible Cause: occasional episodes Modifying Factors: Improves With: nothing Associated Symptoms: constant, cough, wheezing, No intermittent, No anxiety, No chest pain/discomfort, No edema, No fever, No insomnia, No loss of appetite, No lightheadedness, No weakness, No ankle swelling, No chills, No hemoptysis, No calf pain, No dizziness, No heaviness, No heart racing, No lightheadedness, No leg swelling, No muscle spasms feet, No muscle spasms hands, No painful breathing, No productive cough, No sweating, No tightness, No tingling face, No tingling hands (that I put that in her left proxim) Allergies/Adverse Reactions: No Known Drug Allergies Allergy (Verified 10/01/16 21:37) Home Medications: Albuterol 0 gm IH UD 04/28/15 [History] Hx Tetanus, Diphtheria Vaccination/Date Given: No Hx Influenza Vaccination/Date Given: Yes Hx Pneumococcal Vaccination/Date Given: No - Review of Systems Constitutional: No Fever, No Chills Eyes: No Symptoms Ears, Nose, & Throat: No Symptoms Respiratory: Cough, Dyspnea, Wheezing Cardiac: No Chest Pain, No Edema, No Syncope Abdominal/Gastrointestinal: No Abdominal Pain, No Nausea, No Vomiting, No Diarrhea Genitourinary Symptoms: No Dysuria Musculoskeletal: No Back Pain, No Neck Pain Skin: No Rash Neurological: No Dizziness, No Focal Weakness, No Sensory Changes Psychological: No Symptoms Endocrine: No Symptoms All Other Systems: Reviewed and Negative - Past Medical History Pertinent Past Medical History: Yes Neurological History: No Pertinent History ENT History: No Pertinent History Cardiac History: No Pertinent History Respiratory History: COPD, Other Endocrine Medical History: No Pertinent History Musculoskeletal History: No Pertinent History GI Medical History: No Pertinent History Psycho-Social History: Other - Past Surgical History Past Surgical History: No - Social History Smoking Status: Current every day smoker How long have you smoked: 50 yrs Exposure to second hand smoke: Yes Alcohol Use: Chronic (daily throughout the day including work time) Drug Use: none Patient Lives Alone: No - Nursing Vital Signs Nursing Vital Signs: Initial Vital Signs Temperature 98.0 F Temperature Source Oral Pulse Rate 98 Respiratory Rate 22 Blood Pressure [] 122/83 - Physical Exam General Appearance: mild distress Eye Exam: PERRL/EOMI Ears, Nose, Throat Exam: hearing grossly normal, normal ENT inspection, No abnormal TM (R), No abnormal TM (L), No sinus pain/drainage, No hearing decreased, No nasal congestion, No pharyngeal erythema, No tonsillar exudate Neck Exam: normal inspection, non-tender, supple Respiratory Exam: diminished breath sounds Cardiovascular/Chest Exam: normal heart sounds, regular rate/rhythm Abdominal/Gastrointestinal Exam: soft, No tenderness, No distention, No mass Extremity Exam: non-tender, normal range of motion, normal inspection, no calf tenderness, no pedal edema Peripheral Pulses Exam: dorsalis-pedis (R): 2+, dorsalis-pedis (L): 2+ Neurologic Exam: alert, 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, cooperative, state game protector II-XII nml as tested, sensation nml, No motor deficits Skin Exam: normal color, warm, No dry SpO2 Interpretation: normal (93%) SpO2: 93 Oxygen Delivery: Room Air - Course Nursing assessment & vital signs reviewed: Yes EKG Interpreted by Me: RATE (81 bpm), Sinus Rhythm, NORMAL AXIS, Other (EKG, sinus rhythm, 81 bpm, normal axis, no acute ST or T wave changes n0ted) - Radiology Exams Chest X-ray Interpretation: Interpreted by me, No Pneumonia, No Pneumothorax, Other ( chest x-ray COPD, no pneumonia, no pneumothorax) Ordered Tests: Active Orders 24 hr Category Date Time Status EKG-ER Only STAT Care 10/01/16 22:46 Active IV Insertion STAT Care 10/01/16 22:46 Active Pulse Oximetry (ED) STAT Care 10/01/16 22:46 Active CHEST 1 VIEW (PORTABLE) Stat Exams 10/01/16 23:50 Ordered CBC W DIFF Stat Lab 10/01/16 23:00 Completed CMP Stat Lab 10/01/16 23:00 Completed NT PRO BNP Stat Lab 10/01/16 23:00 Completed VENOUS BLOOD GAS Urgent Lab 10/01/16 23:00 Completed Respiratory Nebulizer STAT RT 10/01/16 22:47 Completed Medication Summary Generic Name Dose Route Start Last Admin Trade Name Freq PRN Reason Stop Dose Admin Azithromycin 500 mg 10/02/16 01:13 Zithromax 250 Mg Tablet PO 10/02/16 01:14 STAT ONE Ceftazidime 1 g/ Dextrose 100 mls @ 200 mls/hr 10/02/16 06:00 IV 11/01/16 05:59 Q8HT ALYSSA Discontinued Medications Generic Name Dose Route Start Last Admin Trade Name Freq PRN Reason Stop Dose Admin Albuterol/Ipratropium 3 ml 10/01/16 22:46 10/01/16 22:57 Duoneb 0.5-3 Mg/3 Ml Neb IH 10/01/16 22:47 3 ml STAT ONE Administration Albuterol/Ipratropium Confirm 10/01/16 22:57 Duoneb 0.5-3 Mg/3 Ml Neb Administered 10/01/16 22:58 Dose 3 ml IH .STK-MED ONE Methylprednisolone Sodium Succinate 125 mg 10/01/16 22:46 10/01/16 23:02 Solu-Medrol 125 Mg IV 10/01/16 22:47 125 mg STAT ONE Administration Methylprednisolone Sodium Succinate Confirm 10/01/16 23:00 Solu-Medrol 125 Mg Administered 10/01/16 23:01 Dose 125 mg .ROUTE .STK-MED ONE Lab/Rad Data: Laboratory Result Diagrams 10/01/16 23:00 10/01/16 23:00 Laboratory Results 10/01/16 10/01/16 10/01/16 Range/Units 23:00 23:00 23:00 WBC 11.1 H (4.0-10.5) K/mm3 RBC 4.80 (4.1-5.6) M/mm3 Hgb 15.5 (12.5-18.0) gm/dl Hct 46.3 (42-50) % MCV 96.5 (78-100) fl MCH 32.3 H (26-32) pg MCHC 33.5 (32-36) g/dl RDW 14.3 H (11.5-14.0) % Plt Count 169 (150-450) K/mm3 MPV 9.6 H (6-9.5) fl Gran % 68.5 H (36.0-66.0) % Lymphocytes % 23.5 L (24.0-44.0) % Monocytes % 6.2 (0.0-12.0) % Eosinophils % 1.5 (0.00-5.0) % Basophils % 0.3 (0.0-0.4) % Basophils # 0.03 (0-0.4) VBG pH 7.40 (7.32-7.42) VBG pCO2 at Pat Temp 41 L (42-55) mm/Hg VBG pO2 at Pat Temp 98 H (25-40) mm/Hg VBG HCO3 25.4 (22-28) meq/L VBG O2 Sat (Camilo) 99.3 (95-100) VBG Base Excess 0.5 (-2.0-2.0) VBG Hemoglobin 15.9 VBG Carboxyhemoglobin 9.7 H* (0.0-6.9) % T HGB POC Potassium 3.5 (3.5-5.1) Sodium 139 (136-145) mEq/L Potassium 3.4 L (3.5-5.1) mEq/L Chloride 103 (98-107) mEq/L Carbon Dioxide 24.9 (21-32) mEq/L Anion Gap 14.8 (5-15) MEQ/L BUN 13 (9-20) mg/dL Creatinine 0.76 (0.55-1.30) mg/dl Estimated GFR > 60 ML/MIN Glucose 87 (70-110) MG/DL Calcium 9.2 (8.5-10.1) mg/dL Total Bilirubin 0.2 (0.2-1.0) mg/dL AST 26 (15-37) U/L ALT 25 (12-78) U/L Alkaline Phosphatase 54 (46-116) U/L NT-Pro-B Natriuret Pep 44 (0-125) pg/ml Serum Total Protein 7.0 (6.4-8.2) gm/dL Albumin 3.7 (3.4-5.0) g/dL - Progress Progress: improved Air Movement: fair Progress Note: 10/02/16 01:14 Patient feeling better. Patient given DuoNeb treatment. Patient given Solu-Medrol 125 IV. Patient given ceftazadime 1 g IV. Patient given Zithromax 500 mg by mouth. Patient states he has a nebulizer at home. Will discharge patient with a prescription for Zithromax Z-Miladis, tapering prednisone. Patient did have a carboxyhemoglobin of 10% he smokes he was given oxygen he uses oxygen at home however the nurses state that the patient perhaps have not been using his oxygen.patient's oxygen was turned up to 4 L nasal prong by the patient's nurse here in the emergency room, patient has been instructed to stop smoking and advised to use his oxygen as directed by his family doctor. Patient wants to go home we'll discharge patient 10/02/16 01:18 - Departure Time of Disposition: 01:15 Departure Disposition: Home Clinical Impression: COPD exacerbation, Smoker, elevated carboxglobin level Condition: Fair Critical Care Time: No Instructions: Chronic Obstructive Pulmonary Disease Additional Instructions: Return home. Zithromax Z-MILADIS as directed. Tapering prednisone as directed. Use your inhaler (nebulizer) as directed Follow-up with your family doctor. Call in the morning for an appointment. Use your home oxygen as directed by your family doctor. Return for acute distress or for severe symptoms. Please stop smoking. Prescriptions: Azithromycin 250 mg [Zithromax 250 MG TABLET] 0 mg PO ZPACK #6 tablet
[2016-10-01] MEDS ORDERED: solu-MEDROL 125 MG ONE (23:00)
[2016-10-01 23:03] LABS: BASOPHIL % 0.3 % (0.0-0.4); Eosinophil % 1.5 % (0.00-5.0); Granulocytes % 68.5 % (36.0-66.0); Lymphocytes % 23.5 % (24.0-44.0); Mean Cell Volume 96.5 fl (78-100); Mean Corpuscular Hemoglobin 32.3 pg (26-32); Mean Platelet Volume 9.6 fl (6-9.5); Monocytes % 6.2 % (0.0-12.0); Platelet Count 169 K/mm3 (150-450); Red Cell Distribution Width 14.3 % (11.5-14.0); White Blood Count 11.1 K/mm3 (4.0-10.5)
[2016-10-01 23:09] LABS: VBG BASE EXCESS 0.5 (-2.0-2.0); VBG CARBOXYHEMOGLOBIN 9.7 % T HGB (0.0-6.9); VBG HCO3- 25.4 meq/L (22-28); VBG HEMOGLOBIN 15.9; VBG O2 SATURATION 99.3 (95-100); VBG POTASSIUM 3.5 (3.5-5.1); VBG pH 7.4 (7.32-7.42)
[2016-10-01 23:58] LABS: ALBUMIN 3.7 g/dL (3.4-5.0); ALKALINE PHOSPHATASE 54 U/L (46-116); ANION GAP 14.8 MEQ/L (5-15); BILIRUBIN,TOTAL 0.2 mg/dL (0.2-1.0); BLOOD UREA NITROGEN 13 mg/dL (9-20); CHLORIDE 103 mEq/L (98-107); Carbon Dioxide 24.9 mEq/L (21-32); Glucose 87 MG/DL (70-110); Potassium 3.4 mEq/L (3.5-5.1); SGOT/AST 26 U/L (15-37); SGPT/ALT 25 U/L (12-78); SODIUM 139 mEq/L (136-145)
[2016-10-02] MEDS ORDERED: Zithromax 250 MG TABLET PO ONE (01:13)
[2016-10-02] MEDS ORDERED: Zithromax 250 MG TABLET ONE (01:23)
[2016-10-02 02:03] VITALS: BP 130/80; PULSE 91; O2SAT 96
[2016-10-02] MEDS ORDERED: Fortaz/Tazicef 1 GM** 1 G in Dextrose 5%/Water IV Soln. 100ML PLUS BAG 100 ML IV SCH (06:00)
--- NOTE | 2016-10-02 08:51 | XRAY ---
Indication: Short of breath. Cough. Comparison: September 29, 2016. AP chest remains hyperinflated with a few calcified granulomas and normal heart. There is now subtle left base linear opacity favoring atelectasis. Pneumonia not completely excluded in the right clinical setting.
== END 2016-10-02 02:02 | disposition home or self-care (01) ==
LOC: ED 21:22
DX: J44.1 Chronic obstructive pulmonary disease with (acute) exacerbation (principal); F17.200 Nicotine dependence, unspecified, uncomplicated; R79.89 Other specified abnormal findings of blood chemistry; R05 Cough; R06.2 Wheezing
CPT/HCPCS: 36000; 36415; 71010; 80053; 82805; 83880; 85025; 93005; 94640; 96365; 96374; 99284; J0713; J2930; A9270-GY

== ENCOUNTER 2017-01-06 16:27 | Emergency (ER) | payer OTHER ==
[2017-01-06] MEDS ORDERED: DUONEB 0.5-3 MG/3 ml Neb IH ONE ×2 (16:40→16:41)
[2017-01-06] MEDS ORDERED: DECADRON 10MG INJ. IM ONE (16:40)
[2017-01-06] MEDS ORDERED: DECADRON 10MG INJ. ONE (16:46)
--- NOTE | 2017-01-06 16:46 | ERPHSYRPT ---
- History of Present Illness Time Seen by Provider: 01/06/17 16:31 Source: patient Patient Subjective Stated Complaint: SOB/COUGH Triage Nursing Assessment: SOB FOR DAYS. COUGH WITH YELLOW/ GREEN SPUTUM. NO FEVER. ALL OVER WHEEZES THROUGHOUT. ETOH NOTED Physician History: CC: cough Hx: Cough for a few days. Worsened short of breath. Some sputum. He has COPD. No fever. Worse with dust and smoking. He worked on [employer] today. He goes to [place]. He has nebs and MDIs at home. He wants an abtx. Symptoms moderate. Timing/Duration: day(s) (few) Allergies/Adverse Reactions: No Known Drug Allergies Allergy (Verified 01/06/17 16:37) Home Medications: Budesonide/Formoterol Fumarate [Symbicort 160-4.5 Mcg Inhaler] 6 gm [facility] [History] Ipratropium/Albuterol Sulfate [Combivent Inhaler] 14.7 gm [facility] 01/06/17 [ History] Hx Tetanus, Diphtheria Vaccination/Date Given: Yes Hx Influenza Vaccination/Date Given: No Hx Pneumococcal Vaccination/Date Given: No Immunizations Up to Date: Yes - Review of Systems Constitutional: No Fever, No Chills Eyes: No Symptoms Respiratory: Cough, Dyspnea, Wheezing Abdominal/Gastrointestinal: No Vomiting, No Diarrhea Skin: No Rash - Past Medical History Pertinent Past Medical History: Yes Neurological History: No Pertinent History ENT History: No Pertinent History Cardiac History: No Pertinent History Respiratory History: COPD, Other Endocrine Medical History: No Pertinent History Musculoskeletal History: No Pertinent History GI Medical History: No Pertinent History Psycho-Social History: Other - Past Surgical History Past Surgical History: No - Social History Smoking Status: Current every day smoker How long have you smoked: 50 yrs Exposure to second hand smoke: No Alcohol Use: Chronic (daily throughout the day including work time) Drug Use: none Patient Lives Alone: Yes - Nursing Vital Signs Nursing Vital Signs: Initial Vital Signs Temperature 97.4 F 01/06/17 16:31 Pulse Rate 89 01/06/17 16:31 Respiratory Rate 28 H 01/06/17 16:31 Blood Pressure 131/72 01/06/17 16:31 O2 Sat by Pulse Oximetry 95 01/06/17 16:31 Pain Scale Pain Intensity 0 - Physical Exam General Appearance: alert Eye Exam: PERRL/EOMI Neck Exam: supple Respiratory Exam: wheezing (scattered, breathing a little heavy, no significant distress) Cardiovascular/Chest Exam: regular rate/rhythm Abdominal/Gastrointestinal Exam: soft, No tenderness, No distention Extremity Exam: non-tender, no pedal edema Neurologic Exam: alert, 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, cooperative, sensation nml, No motor deficits Skin Exam: warm, dry, No rash SpO2 Interpretation: normal SpO2: 95 Oxygen Delivery: Room Air - Course Nursing assessment & vital signs reviewed: Yes Ordered Tests: Active Orders 24 hr Category Date Time Status Respiratory Nebulizer STAT RT 01/06/17 16:42 Active Medication Summary Discontinued Medications Generic Name Dose Route Start Last Admin Trade Name Freq PRN Reason Stop Dose Admin Albuterol/Ipratropium 3 ml 01/06/17 16:41 Duoneb 0.5-3 Mg/3 Ml Neb IH 01/06/17 16:42 STAT ONE Dexamethasone Sodium Phosphate 10 mg 01/06/17 16:40 Decadron 10mg Inj. IM 01/06/17 16:41 STAT ONE - Progress Progress Note: 01/06/17 16:44 He only wants abtx. Agreed for decadron IM and one neb. He declines tests. He appears to be stable for discharge. Counseled pt/family regarding: diagnosis, need for follow-up, smoking cessation - Departure Time of Disposition: 16:44 Departure Disposition: Home Clinical Impression: COPD exacerbation Condition: Stable Critical Care Time: No Referrals: HOSPITAL,'S [Primary Care Provider] - Instructions: Chronic Obstructive Pulmonary Disease, Quit Smoking Additional Instructions: UPPER RESPIRATORY INFECTIONS 1. The signs and symptoms of a cold may last up to 10 days. These illnesses are due to viruses which are not treatable with antibiotics. 2. The following suggestions can aid in recovery and to minimize symptoms: A. Increase fluid intake. B. Acetaminophen or Ibuprofen as directed. C. Avoid smoking environments as this will increase the risk of developing pneumonia. D. For children, may use a cool mist vaporizer in the child's room. 3. Contact your Family Physician if you note: A. Persisten fever >103 for more than 3 days B. Breathing difficulty C. Productive cough of yellow/green sputum D. Illness greater than 7 days E. Persistent vomiting F. Stiff neck Rx doxycycline. Use your nebs/inhalers as prescribed. Follow up at [place] Sunday. Decreased smoking. Return for worsening or concerns. Prescriptions: Doxycycline Hyclate [Vibramycin] 1 cap PO BID #20 capsule
[2017-01-06 17:59] VITALS: BP 135/78; PULSE 84; O2SAT 97
== END 2017-01-06 17:25 | disposition home or self-care (01) ==
LOC: ED 16:27
DX: J44.1 Chronic obstructive pulmonary disease with (acute) exacerbation (principal)
CPT/HCPCS: 94640; 99283; J1100; A9270-GY

== ENCOUNTER 2017-02-18 17:25 | Emergency (ER) | payer OTHER, SELFPAY ==
[2017-02-18] MEDS ORDERED: PROVENTIL 2.5 MG/3 ML NEB IH ONE ×2 (17:38→17:44)
[2017-02-18] MEDS ORDERED: solu-MEDROL 125 MG IV ONE (17:44)
[2017-02-18] MEDS ORDERED: DUONEB 0.5-3 MG/3 ml Neb IH ONE ×2 (17:44→17:49)
--- NOTE | 2017-02-18 17:49 | ERPHSYRPT ---
- History of Present Illness Time Seen by Provider: 02/18/17 17:44 Source: patient Exam Limitations: no limitations Patient Subjective Stated Complaint: sob for two days. states has been around farm dust. hx copd Triage Nursing Assessment: shortness of breath noted. skin w/d, color normal. lung sounds diminshed. Physician History: The patient is a 61-year-old male complains of increasing and worsening shortness of breath that began about a week ago. He states he has a hard time walking even across the room. He's had this happen before. He is a smoker. He has COPD. His past medical history is significant for COPD, bronchitis, and chronic alcohol use. Timing/Duration: week(s) (1) Activities at Onset: none Severity of Dyspnea-Max: moderate Severity of Dyspnea-Current: moderate Possible Cause: occasional episodes, smoke exposure Modifying Factors: Improves With: albuterol inhaler, exertion Associated Symptoms: wheezing Allergies/Adverse Reactions: No Known Drug Allergies Allergy (Verified 01/06/17 16:37) Home Medications: Budesonide/Formoterol Fumarate [Symbicort 160-4.5 Mcg Inhaler] 6 gm COUNTS INCLUDE 234 BEDS AT THE [facility] [History] Ipratropium/Albuterol Sulfate [Combivent Inhaler] 14.7 gm COUNTS INCLUDE 234 BEDS AT THE [facility] 01/06/17 [ History] Hx Tetanus, Diphtheria Vaccination/Date Given: No Hx Influenza Vaccination/Date Given: No Hx Pneumococcal Vaccination/Date Given: Yes - Review of Systems Constitutional: No Fever, No Chills Eyes: No Symptoms Ears, Nose, & Throat: No Symptoms Respiratory: Dyspnea, Dyspnea on Exertion (ROMERO), Wheezing Cardiac: No Chest Pain, No Edema, No Syncope Abdominal/Gastrointestinal: No Abdominal Pain, No Nausea, No Vomiting, No Diarrhea Genitourinary Symptoms: No Dysuria Musculoskeletal: No Back Pain, No Neck Pain Skin: No Rash Neurological: No Dizziness, No Focal Weakness, No Sensory Changes Psychological: No Symptoms Endocrine: No Symptoms Hematologic/Lymphatic: No Symptoms Immunological/Allergic: No Symptoms All Other Systems: Reviewed and Negative - Past Medical History Pertinent Past Medical History: Yes Neurological History: No Pertinent History ENT History: No Pertinent History Cardiac History: No Pertinent History Respiratory History: COPD, Other Endocrine Medical History: No Pertinent History Musculoskeletal History: No Pertinent History GI Medical History: No Pertinent History Psycho-Social History: Other - Past Surgical History Past Surgical History: No - Social History Smoking Status: Current every day smoker How long have you smoked: 50 yrs Exposure to second hand smoke: Yes Alcohol Use: Chronic (daily throughout the day including work time) Drug Use: none Patient Lives Alone: No - Nursing Vital Signs Nursing Vital Signs: Initial Vital Signs Temperature 96.9 F 02/18/17 17:29 Pulse Rate 92 H 02/18/17 17:29 Respiratory Rate 22 02/18/17 17:29 Blood Pressure 157/101 02/18/17 17:29 O2 Sat by Pulse Oximetry 94 L 02/18/17 17:29 Pain Scale Pain Intensity 0 - Physical Exam General Appearance: moderate distress Eye Exam: PERRL/EOMI Ears, Nose, Throat Exam: hearing grossly normal Neck Exam: normal inspection, supple Respiratory Exam: diminished breath sounds, prolonged expirations, wheezing Cardiovascular/Chest Exam: normal heart sounds, regular rate/rhythm Abdominal/Gastrointestinal Exam: soft, No tenderness, No distention, No mass Rectal Exam: not done Extremity Exam: non-tender, normal range of motion, normal inspection, no calf tenderness, no pedal edema Neurologic Exam: alert, 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, cooperative, occupational health physician II-XII nml as tested, sensation nml, No motor deficits Skin Exam: normal color, warm, No dry SpO2 Interpretation: borderline oxygenation, O2 applied SpO2: 94 Oxygen Delivery: Room Air - Radiology Exams Chest X-ray Interpretation: Interpreted by me, Negative, Other (COPD) Ordered Tests: Active Orders 24 hr Category Date Time Status IV Insertion STAT Care 02/18/17 18:00 Active Oxygen-ED Only NASAL CANNULA 2 lpm Care 02/18/17 17:44 Active CHEST 2 VIEWS (PA AND LAT) Stat Exams 02/18/17 17:45 Taken CBC W DIFF Stat Lab 02/18/17 17:52 Completed CMP Stat Lab 02/18/17 17:52 Completed Lactic Acid Stat Lab 02/18/17 18:00 Completed Respiratory Nebulizer STAT RT 02/18/17 17:46 Completed Respiratory Nebulizer STAT RT 02/18/17 18:35 Completed Medication Summary Discontinued Medications Generic Name Dose Route Start Last Admin Trade Name Freq PRN Reason Stop Dose Admin Albuterol Sulfate Confirm 02/18/17 17:38 Proventil 2.5 Mg/3 Ml Neb Administered 02/18/17 17:39 Dose 2.5 mg IH .STK-MED ONE Albuterol Sulfate 2.5 mg 02/18/17 17:44 02/18/17 17:47 Proventil 2.5 Mg/3 Ml Neb IH 02/18/17 17:45 2.5 mg STAT ONE Administration Albuterol/Ipratropium 3 ml 02/18/17 17:44 02/18/17 17:50 Duoneb 0.5-3 Mg/3 Ml Neb IH 02/18/17 17:45 3 ml STAT ONE Administration Albuterol/Ipratropium Confirm 02/18/17 17:49 Duoneb 0.5-3 Mg/3 Ml Neb Administered 02/18/17 17:50 Dose 3 ml IH .STK-MED ONE Methylprednisolone Sodium Succinate 125 mg 02/18/17 17:44 02/18/17 17:54 Solu-Medrol 125 Mg IV 02/18/17 17:45 125 mg STAT ONE Administration Methylprednisolone Sodium Succinate Confirm 02/18/17 17:54 Solu-Medrol 125 Mg Administered 02/18/17 17:55 Dose 125 mg .ROUTE .STK-MED ONE Lab/Rad Data: Laboratory Result Diagrams 02/18/17 17:52 02/18/17 17:52 Laboratory Results 02/18/17 02/18/17 02/18/17 Range/Units 18:00 17:52 17:52 WBC 12.0 H (4.0-10.5) K/mm3 RBC 4.76 (4.1-5.6) M/mm3 Hgb 15.5 (12.5-18.0) gm/dl Hct 46.9 (42-50) % MCV 98.5 (78-100) fl MCH 32.6 H (26-32) pg MCHC 33.0 (32-36) g/dl RDW 13.5 (11.5-14.0) % Plt Count 166 (150-450) K/mm3 MPV 9.5 (6-9.5) fl Gran % 60.1 (36.0-66.0) % Lymphocytes % 27.7 (24.0-44.0) % Monocytes % 10.0 (0.0-12.0) % Eosinophils % 1.9 (0.00-5.0) % Basophils % 0.3 (0.0-0.4) % Basophils # 0.04 (0-0.4) Sodium 133 L (136-145) mEq/L Potassium 4.0 (3.5-5.1) mEq/L Chloride 98 (98-107) mEq/L Carbon Dioxide 24.9 (21-32) mEq/L Anion Gap 13.7 (5-15) MEQ/L BUN 11 (9-20) mg/dL Creatinine 0.81 (0.55-1.30) mg/dl Estimated GFR > 60 ML/MIN Glucose 115 H (70-110) MG/DL Lactic Acid 1.1 (0.4-2.0) Calcium 8.8 (8.5-10.1) mg/dL Total Bilirubin 0.30 (0.2-1.0) mg/dL AST 27 (15-37) U/L ALT 23 (12-78) U/L Alkaline Phosphatase 64 (46-116) U/L Serum Total Protein 7.4 (6.4-8.2) gm/dL Albumin 4.0 (3.4-5.0) g/dL - Progress Progress: improved Air Movement: good Blood Culture(s) Obtained: No Antibiotics given: No Counseled pt/family regarding: lab results, diagnosis, rad results - Departure Time of Disposition: 19:01 Departure Disposition: Home Clinical Impression: COPD exacerbation, Bronchitis Condition: Stable Critical Care Time: No Referrals: [facility] [Primary Care Provider] - Instructions: Chronic Obstructive Pulmonary Disease Additional Instructions: You have an exacerbation of COPD and bronchitis. You were given an albuterol nebulizer, a DuoNeb treatment, and Solu-Medrol 125 mg by IV in the ER. Take prednisone 60 mg daily for 5 days. Take doxycycline 100 mg twice a day for 10 days. Follow-up as needed. Prescriptions: Doxycycline Hyclate 100 mg [Vibramycin 100 MG] 100 mg PO BID #20 tab Prednisone 10 mg [Deltasone 10 mg] 60 mg PO DAILY #30 tablet
[2017-02-18] MEDS ORDERED: solu-MEDROL 125 MG ONE (17:54)
[2017-02-18 17:55] LABS: BASOPHIL % 0.3 % (0.0-0.4); Eosinophil % 1.9 % (0.00-5.0); Granulocytes % 60.1 % (36.0-66.0); Lymphocytes % 27.7 % (24.0-44.0); Mean Cell Volume 98.5 fl (78-100); Mean Corpuscular Hemoglobin 32.6 pg (26-32); Mean Platelet Volume 9.5 fl (6-9.5); Platelet Count 166 K/mm3 (150-450); Red Blood Count 4.76 M/mm3 (4.1-5.6); Red Cell Distribution Width 13.5 % (11.5-14.0)
[2017-02-18 18:14] LABS: ALKALINE PHOSPHATASE 64 U/L (46-116); ANION GAP 13.7 MEQ/L (5-15); BLOOD UREA NITROGEN 11 mg/dL (9-20); CHLORIDE 98 mEq/L (98-107); Carbon Dioxide 24.9 mEq/L (21-32); Glucose 115 MG/DL (70-110); SGOT/AST 27 U/L (15-37); SGPT/ALT 23 U/L (12-78); SODIUM 133 mEq/L (136-145); Total Protein 7.4 gm/dL (6.4-8.2)
[2017-02-18 19:17] VITALS: BP 149/90; PULSE 90; O2SAT 92
--- NOTE | 2017-02-18 20:00 | XRAY ---
Indication: Cough and short of breath. Comparison: October 02, 2016. PA/lateral chest hyperinflated and clear with incidental costal granulomas. Heart and mediastinal structures within normal limits. Bony thorax intact. Impression: Nonacute hyperinflated chest.
== END 2017-02-18 19:18 | disposition home or self-care (01) ==
LOC: ED 17:25
DX: J44.1 Chronic obstructive pulmonary disease with (acute) exacerbation (principal); J40 Bronchitis, not specified as acute or chronic; F17.200 Nicotine dependence, unspecified, uncomplicated
CPT/HCPCS: 36000; 36415; 71020; 80053; 83605; 85025; 94640; 96374; 99284; J2930; A9270-GY

== ENCOUNTER 2017-04-16 13:21 | Emergency (ER) | payer OTHER ==
[2017-04-16 13:38] VITALS: O2SAT 95
--- NOTE | 2017-04-16 13:38 | ERPHSYRPT ---
- History of Present Illness Time Seen by Provider: 04/16/17 13:36 Source: patient Exam Limitations: no limitations Physician History: mild to mod ache positional pain today of the left knee, twisted by accident, painful ambulation, no other injury, pt refused pain med Allergies/Adverse Reactions: No Known Drug Allergies Allergy (Verified 01/06/17 16:37) Home Medications: Ipratropium/Albuterol Sulfate [Combivent Inhaler] 14.7 gm IH UD 01/06/17 [ History] Hx Tetanus, Diphtheria Vaccination/Date Given: No Hx Influenza Vaccination/Date Given: No Hx Pneumococcal Vaccination/Date Given: Yes - Review of Systems Constitutional: No Symptoms Respiratory: No Symptoms Cardiac: No Symptoms Abdominal/Gastrointestinal: No Symptoms Skin: No Symptoms Neurological: No Symptoms - Past Medical History Pertinent Past Medical History: Yes Neurological History: No Pertinent History ENT History: No Pertinent History Cardiac History: No Pertinent History Respiratory History: COPD, Other Endocrine Medical History: No Pertinent History Musculoskeletal History: No Pertinent History GI Medical History: No Pertinent History Psycho-Social History: Other - Past Surgical History Past Surgical History: No - Social History Smoking Status: Current every day smoker How long have you smoked: 50 yrs Exposure to second hand smoke: Yes Alcohol Use: Chronic (daily throughout the day including work time) Drug Use: none Patient Lives Alone: No - Nursing Vital Signs Nursing Vital Signs: Initial Vital Signs Temperature 98.1 F 04/16/17 13:31 Pulse Rate 90 04/16/17 13:31 Respiratory Rate 18 04/16/17 13:31 Blood Pressure 145/87 04/16/17 13:31 O2 Sat by Pulse Oximetry 95 04/16/17 13:31 Pain Scale Pain Intensity 8 - Physical Exam General Appearance: no apparent distress Extremity Exam: other (tender anterior left knee, david, sen and pulses intact, nontender ankle and hip) Neurologic Exam: alert, 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, cooperative Skin Exam: normal color, warm, dry - Course Nursing assessment & vital signs reviewed: Yes - Radiology Exams Knee X-ray Interpretation: Discussed w/ radiologist, No Fracture Ordered Tests: Active Orders 24 hr Category Date Time Status Crutches STAT Care 04/16/17 14:24 Ordered Immobilizer STAT Care 04/16/17 14:24 Ordered KNEE (3 VIEWS) Stat Exams 04/16/17 Completed - Progress Progress: unchanged Discussed with : Other (see [facility] [phone]) Will see patient in: office Counseled pt/family regarding: diagnosis, need for follow-up, rad results - Departure Time of Disposition: 14:25 Departure Disposition: Home Clinical Impression: Knee pain, left Qualifiers: Chronicity: acute Qualified Code(s): M25.562 - Pain in left knee Condition: Stable Critical Care Time: No Referrals: KRISTY JIMENEZ MD [Primary Care Provider] - Instructions: Knee Pain Additional Instructions: see [facility] orthopedics [phone] ice and elevation and motrin return if worse
--- NOTE | 2017-04-16 14:13 | XRAY ---
Indication: Pain following twisting injury. Comparison: None 3 views of the left knee demonstrates small nonspecific suprapatellar effusion. No other bony, articular, or soft tissue abnormalities.
[2017-04-16 14:35] VITALS: BP 161/90; PULSE 88
== END 2017-04-16 14:46 | disposition home or self-care (01) ==
LOC: ED 13:21
DX: M25.562 Pain in left knee (principal); X50.0XXA Overexertion from strenuous movement or load, initial encounter; J44.9 Chronic obstructive pulmonary disease, unspecified
CPT/HCPCS: 73562; 99283

== ENCOUNTER 2017-05-26 22:44 | Observation (INO) | payer OTHER, SELFPAY ==
[2017-05-26] MEDS ORDERED: ROCEPHIN 1 Gm-D5w 50 ml Bag** 1 G/50 ML IVPB IV STA (22:49)
[2017-05-26] MEDS ORDERED: Zosyn INJ 4.5 GM in D5w 100ML Mini Bag 100 ML 100 ML IV ONE (22:52)
[2017-05-26] MEDS ORDERED: Sodium Chloride 0.9% 1000 ML 1,000 ML IV SCH (23:00)
--- NOTE | 2017-05-26 23:05 | ERPHSYRPT ---
- History of Present Illness Time Seen by Provider: 05/26/17 22:55 Source: patient, family, EMS Exam Limitations: clinical condition, other (elevated blood alcohol initially with reported altered mental status - resolving while observed in ER) Patient Subjective Stated Complaint: SOB Triage Nursing Assessment: Pt presents to the EMS with complaints of SOB and ETOH intoxication. Pt has nonproductive cough, but states he feels "normal" and that cough is "normal." Pt states he has been drinking alcohol all day today, unknown amount. Pt denies pain or other complaints at this time. Pt is A&O x3, no distress noted. Peripheral IV in place prior to arrival per EMS. Physician History: pt is 62 year old male with hx of COPD and alcohol use presenting with similar symptoms today of short of breath and drinking by his own history no hx of trauma - no CP or abd pain, but family was more concerned today due to a brief period of possible syncope. EMS found the pt arousable and responsive , family described as slumping over . No N or V . although this may have been an effect of alcohol sedation, we should perform some testing to look for underlying pathology. As the neuro exam is normal at this time and no sign of trauma , and no actual reported signs such as convulsions , or post ictal findings - the history does not suggest typical grand mal seizures ; however may be an absence, temporal lobe , or partial psychomotor seizure- later was observed in ER with involuntary movements of right arm and to be unresponsive but appearing awake; Timing/Duration: today Severity of Dyspnea-Max: moderate Severity of Dyspnea-Current: moderate Possible Cause: chronic episodes Modifying Factors: Improves With: albuterol nebulizer, coughing Associated Symptoms: cough, wheezing, productive cough Allergies/Adverse Reactions: No Known Drug Allergies Allergy (Verified 01/06/17 16:37) Home Medications: Ipratropium/Albuterol Sulfate [Combivent Inhaler] 14.7 gm IH UD 01/06/17 [ History] Hx Tetanus, Diphtheria Vaccination/Date Given: No Hx Influenza Vaccination/Date Given: No Hx Pneumococcal Vaccination/Date Given: No Immunizations Up to Date: No - Review of Systems Constitutional: No Fever, No Chills Eyes: No Symptoms Ears, Nose, & Throat: No Symptoms Respiratory: Cough, Dyspnea, Wheezing Cardiac: No Chest Pain, No Edema, No Syncope Abdominal/Gastrointestinal: No Abdominal Pain, No Nausea, No Vomiting, No Diarrhea Genitourinary Symptoms: No Dysuria Musculoskeletal: No Back Pain, No Neck Pain Skin: No Rash Neurological: No Dizziness, No Focal Weakness, No Sensory Changes Psychological: No Symptoms Endocrine: No Symptoms All Other Systems: Reviewed and Negative - Past Medical History Pertinent Past Medical History: Yes Neurological History: No Pertinent History ENT History: No Pertinent History Cardiac History: No Pertinent History Respiratory History: COPD, Other Endocrine Medical History: No Pertinent History Musculoskeletal History: No Pertinent History GI Medical History: No Pertinent History Psycho-Social History: Other - Past Surgical History Past Surgical History: No - Social History Smoking Status: Current every day smoker How long have you smoked: 50 years Exposure to second hand smoke: Yes Alcohol Use: Chronic (daily throughout the day including work time) Drug Use: none Patient Lives Alone: No - Nursing Vital Signs Nursing Vital Signs: Initial Vital Signs Temperature 97.4 F 05/26/17 22:46 Pulse Rate 96 H 05/26/17 22:46 Respiratory Rate 15 05/26/17 22:46 Blood Pressure 135/73 05/26/17 22:46 O2 Sat by Pulse Oximetry 94 L 05/26/17 22:46 Pain Scale Pain Intensity 0 - Physical Exam General Appearance: no apparent distress, alert Eye Exam: PERRL/EOMI Neck Exam: normal inspection, supple Respiratory Exam: airway intact, wheezing Cardiovascular/Chest Exam: normal heart sounds, regular rate/rhythm Abdominal/Gastrointestinal Exam: soft, No tenderness, No distention, No mass Extremity Exam: non-tender, normal range of motion, normal inspection, no calf tenderness, no pedal edema Peripheral Pulses Exam: carotid (R): 2+, carotid (L): 2+, femoral (R): 2+, femoral (L): 2+, dorsalis-pedis (R): 2+, dorsalis-pedis (L): 2+ Neurologic Exam: alert, 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, cooperative, 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 as tested, sensation nml, No motor deficits Skin Exam: normal color, warm, No dry SpO2 Interpretation: borderline oxygenation (consistent with chronic COPD) SpO2: 95 Oxygen Delivery: Room Air - Course Nursing assessment & vital signs reviewed: Yes EKG Interpreted by Me: Sinus Rhythm, NORMAL AXIS, Non-specific ST Changes, Other (similar to previous) - Radiology Exams Chest X-ray Interpretation: Reviewed by me, No Pneumothorax, Other (COPD old scars/ atelectasis similar to previous with some increase RLL) - CT Exams Head CT Interpretation: Tele-radiologist Report, No/Intracranial Hemorrhag Chest CT Interpretation: Tele-radiologist Report, No PE, Pneumonia (early pneumonia/ exac COPD) Ordered Tests: Active Orders 24 hr Category Date Time Status Accucheck STAT Care 05/26/17 23:32 Active Stoner Hand STAT Care 05/26/17 22:51 Active EKG-ER Only STAT Care 05/26/17 22:49 Active IV Insertion STAT Care 05/26/17 22:49 Active IV Insertion-2nd Peripheral STAT Care 05/27/17 00:11 Active Pulse Oximetry (ED) STAT Care 05/26/17 22:49 Active CHEST 2 VIEWS (PA AND LAT) Stat Exams 05/26/17 22:50 Taken CHEST WITH CONTRAST [CT] Stat Exams 05/27/17 00:03 Taken HEAD WITHOUT CONTRAST [CT] Stat Exams 05/26/17 23:30 Taken ACETAMINOPHEN Stat Lab 05/26/17 23:05 Completed CBC W DIFF Stat Lab 05/26/17 23:05 Completed CMP Stat Lab 05/26/17 23:05 Completed D-DIMER QUANTITATION Stat Lab 05/26/17 23:05 Completed DILANTIN(PHENYTOIN) Stat Lab 05/26/17 23:20 Completed ETHYL ALCOHOL Stat Lab 05/26/17 23:05 Completed Lactic Acid Stat Lab 05/26/17 23:00 Completed Lactic Acid Stat Lab 05/27/17 01:07 Ordered MAGNESIUM Stat Lab 05/26/17 23:19 Completed NT PRO BNP Stat Lab 05/26/17 23:05 Completed SALICYLATE Stat Lab 05/26/17 23:05 Completed TROPONIN Q3H Lab 05/26/17 23:05 Completed TROPONIN Q3H Lab 05/27/17 02:00 Ordered TROPONIN Q3H Lab 05/27/17 05:00 Ordered TROPONIN Q3H Lab 05/27/17 08:00 Ordered TROPONIN Q3H Lab 05/27/17 11:00 Ordered Medication Summary Generic Name Dose Route Start Last Admin Trade Name Freq PRN Reason Stop Dose Admin Sodium Chloride 1,000 mls @ 100 mls/hr 05/26/17 23:00 05/26/17 23:13 Sodium Chloride 0.9% 1000 Ml IV 06/25/17 22:59 100 mls/hr .Q10H ALYSSA Administration Magnesium Sulfate/Dextrose 100 mls @ 100 mls/hr 05/26/17 23:45 05/27/17 01:18 Magnesium 1 Gm / 100 Ml D5w IV 05/27/17 01:44 100 mls/hr Q1H ALYSSA Administration Lorazepam 1 mg 05/27/17 02:02 Ativan 1 Mg PO 05/27/17 02:03 STAT ONE Discontinued Medications Generic Name Dose Route Start Last Admin Trade Name Freq PRN Reason Stop Dose Admin Ceftriaxone Sodium/Dextrose 1 g in 50 mls @ 100 mls/hr 05/26/17 22:49 23:13 Rocephin 1 Gm-D5w 50 Ml Bag IV 05/26/17 23:18 100 mls/hr STAT STA Administration Piperacillin Sod/Tazobactam 100 mls @ 200 mls/hr 05/26/17 22:52 05/26/17 23: 55 Sod 4.5 gm/ Dextrose IV 05/26/17 23:21 200 mls/hr STAT ONE Administration Ceftriaxone Sodium/Dextrose Confirm 05/26/17 23:08 Rocephin 1 Gm-D5w 50 Ml Bag Administered 05/26/17 23:09 Dose 1 g in 50 mls @ ud IV .STK-MED ONE Dextrose Confirm 05/26/17 23:09 D5w 100ml Mini Bag 100 Ml Administered 05/26/17 23:10 Dose 100 mls @ ud IV .STK-MED ONE Levofloxacin/Dextrose 750 mg in 150 mls @ 100 mls/hr 05/26/17 23:14 05/27/17 01:18 Levofloxacin 750mg/150ml D5w IV 05/27/17 00:43 100 mls/hr STAT STA Administration Fosphenytoin Sodium 500 mg/ 110 mls @ 300 mls/hr 05/26/17 23:32 Sodium Chloride IV 05/26/17 23:53 STAT ONE Sodium Chloride 1,000 mls @ 999 mls/hr 05/26/17 23:32 05/27/17 00:21 Sodium Chloride 0.9% 1000 Ml IV 05/27/17 00:32 999 mls/hr .Q1H1M STA Administration Fosphenytoin Sodium 900 mg/ 118 mls @ 300 mls/hr 05/27/17 00:01 Sodium Chloride IV 05/27/17 00:24 STAT ONE Levofloxacin/Dextrose Confirm 05/27/17 01:11 Levofloxacin 750mg/150ml D5w Administered 05/27/17 01:12 Dose 750 mg in 150 mls @ ud IV .STK-MED ONE Lorazepam 1 mg 05/26/17 23:45 05/27/17 00:17 Ativan 1 Mg PO 05/26/17 23:46 1 mg STAT ONE Administration Lorazepam Confirm 05/27/17 00:14 Ativan 1 Mg Administered 05/27/17 00:15 Dose 1 mg .ROUTE .STK-MED ONE Nicotine 21 mg 05/27/17 02:01 Nicoderm Cq 21 Mg TOP 05/27/17 02:02 STAT ONE Piperacillin Sod/Tazobactam Sod Confirm 05/26/17 23:08 Zosyn Inj Administered 05/26/17 23:09 Dose 4.5 gm IV .STK-MED ONE Thiamine HCl 100 mg 05/26/17 23:19 05/27/17 00:16 Thiamine 200 Mg/2 Ml IV 05/26/17 23:20 100 mg STAT ONE Administration Thiamine HCl Confirm 05/27/17 00:14 Thiamine 200 Mg/2 Ml Administered 05/27/17 00:15 Dose 200 mg .ROUTE .STK-MED ONE Lab/Rad Data: Laboratory Result Diagrams 05/26/17 23:05 05/26/17 23:05 Laboratory Results 05/26/17 05/26/17 05/26/17 Range/Units 23:20 23:19 23:05 WBC (4.0-10.5) K/mm3 RBC (4.1-5.6) M/mm3 Hgb (12.5-18.0) gm/dl Hct (42-50) % MCV (78-100) fl MCH (26-32) pg MCHC (32-36) g/dl RDW (11.5-14.0) % Plt Count (150-450) K/mm3 MPV (6-9.5) fl Gran % (36.0-66.0) % Lymphocytes % (24.0-44.0) % Monocytes % (0.0-12.0) % Eosinophils % (0.00-5.0) % Basophils % (0.0-0.4) % Basophils # (0-0.4) D-Dimer (0-500) ng/mL Sodium (136-145) mEq/L Potassium (3.5-5.1) mEq/L Chloride (98-107) mEq/L Carbon Dioxide (21-32) mEq/L Anion Gap (5-15) MEQ/L BUN (9-20) mg/dL Creatinine (0.55-1.30) mg/dl Estimated GFR ML/MIN Glucose (70-110) MG/DL Lactic Acid (0.4-2.0) Calcium (8.5-10.1) mg/dL Magnesium 1.9 (1.8-2.4) mg/dL Total Bilirubin (0.2-1.0) mg/dL AST (15-37) U/L ALT (12-78) U/L Alkaline Phosphatase (46-116) U/L Troponin I (0.000-0.056) ng/ml NT-Pro-B Natriuret Pep (0-125) pg/ml Serum Total Protein (6.4-8.2) gm/dL Albumin (3.4-5.0) g/dL Ur Collection Type Urine Color (YELLOW) Urine Appearance (CLEAR) Urine pH (5-6) Ur Specific [place] (1.005-1.025) Urine Protein (Negative) Urine Ketones (NEGATIVE) Urine Blood (0-5) Luther/ul Urine Nitrite (NEGATIVE) Urine Bilirubin (NEGATIVE) Urine Urobilinogen (0-1) mg/dL Ur Leukocyte Esterase (NEGATIVE) Urine Culture Reflexed (NO) Urine Glucose (NEGATIVE) mg/dL Salicylates 6.9 (2.8-20.0) mg/dl Urine Opiates Level (NEGATIVE) Ur Methadone (NEGATIVE) Acetaminophen < 2.0 L (10-30) ug/ml Urine Barbiturates (NEGATIVE) Phenytoin 1.0 L (10-20) ug/ml Ur Phencyclidine (PCP) (NEGATIVE) Urine Amphetamine (NEGATIVE) U Benzodiazepine Level (NEGATIVE) Urine Cocaine (NEGATIVE) Urine Marijuana (THC) (NEGATIVE) Ethyl Alcohol 0.321 H* (0.00-0.01) % Influenza Type A Ag (NEGATIVE) Influenza Type B Ag (NEGATIVE) RSV (PCR) (Negative) Specimen Received 05/26/17 05/26/17 05/26/17 Range/Units 23:05 23:05 23:05 WBC (4.0-10.5) K/mm3 RBC (4.1-5.6) M/mm3 Hgb (12.5-18.0) gm/dl Hct (42-50) % MCV (78-100) fl MCH (26-32) pg MCHC (32-36) g/dl RDW (11.5-14.0) % Plt Count (150-450) K/mm3 MPV (6-9.5) fl Gran % (36.0-66.0) % Lymphocytes % (24.0-44.0) % Monocytes % (0.0-12.0) % Eosinophils % (0.00-5.0) % Basophils % (0.0-0.4) % Basophils # (0-0.4) D-Dimer 665.69 H* (0-500) ng/mL Sodium (136-145) mEq/L Potassium (3.5-5.1) mEq/L Chloride (98-107) mEq/L Carbon Dioxide (21-32) mEq/L Anion Gap (5-15) MEQ/L BUN (9-20) mg/dL Creatinine (0.55-1.30) mg/dl Estimated GFR ML/MIN Glucose (70-110) MG/DL Lactic Acid (0.4-2.0) Calcium (8.5-10.1) mg/dL Magnesium (1.8-2.4) mg/dL Total Bilirubin (0.2-1.0) mg/dL AST (15-37) U/L ALT (12-78) U/L Alkaline Phosphatase (46-116) U/L Troponin I < 0.017 (0.000-0.056) ng/ml NT-Pro-B Natriuret Pep (0-125) pg/ml Serum Total Protein (6.4-8.2) gm/dL Albumin (3.4-5.0) g/dL Ur Collection Type Urine Color (YELLOW) Urine Appearance (CLEAR) Urine pH (5-6) Ur Specific [place] (1.005-1.025) Urine Protein (Negative) Urine Ketones (NEGATIVE) Urine Blood (0-5) Luther/ul Urine Nitrite (NEGATIVE) Urine Bilirubin (NEGATIVE) Urine Urobilinogen (0-1) mg/dL Ur Leukocyte Esterase (NEGATIVE) Urine Culture Reflexed (NO) Urine Glucose (NEGATIVE) mg/dL Salicylates (2.8-20.0) mg/dl Urine Opiates Level (NEGATIVE) Ur Methadone (NEGATIVE) Acetaminophen (10-30) ug/ml Urine Barbiturates (NEGATIVE) Phenytoin (10-20) ug/ml Ur Phencyclidine (PCP) (NEGATIVE) Urine Amphetamine (NEGATIVE) U Benzodiazepine Level (NEGATIVE) Urine Cocaine (NEGATIVE) Urine Marijuana (THC) (NEGATIVE) Ethyl Alcohol (0.00-0.01) % Influenza Type A Ag NEGATIVE (NEGATIVE) Influenza Type B Ag NEGATIVE (NEGATIVE) RSV (PCR) NEGATIVE (Negative) Specimen Received 05/26/17 05/26/17 05/26/17 Range/Units 23:05 23:05 23:00 WBC 9.4 (4.0-10.5) K/mm3 RBC 5.00 (4.1-5.6) M/mm3 Hgb 16.3 (12.5-18.0) gm/dl Hct 49.0 (42-50) % MCV 98.0 (78-100) fl MCH 32.6 H (26-32) pg MCHC 33.3 (32-36) g/dl RDW 13.6 (11.5-14.0) % Plt Count 187 (150-450) K/mm3 MPV 9.3 (6-9.5) fl Gran % 51.1 (36.0-66.0) % Lymphocytes % 36.7 (24.0-44.0) % Monocytes % 9.1 (0.0-12.0) % Eosinophils % 2.6 (0.00-5.0) % Basophils % 0.5 (0.0-0.4) % Basophils # 0.05 (0-0.4) D-Dimer (0-500) ng/mL Sodium 125 L (136-145) mEq/L Potassium 3.5 (3.5-5.1) mEq/L Chloride 97 L (98-107) mEq/L Carbon Dioxide 22.9 (21-32) mEq/L Anion Gap 9.0 (5-15) MEQ/L BUN 10 (9-20) mg/dL Creatinine 0.82 (0.55-1.30) mg/dl Estimated GFR > 60 ML/MIN Glucose 97 (70-110) MG/DL Lactic Acid 2.2 H (0.4-2.0) Calcium 8.7 (8.5-10.1) mg/dL Magnesium (1.8-2.4) mg/dL Total Bilirubin 0.20 (0.2-1.0) mg/dL AST 25 (15-37) U/L ALT 20 (12-78) U/L Alkaline Phosphatase 51 (46-116) U/L Troponin I (0.000-0.056) ng/ml NT-Pro-B Natriuret Pep 67 (0-125) pg/ml Serum Total Protein 7.5 (6.4-8.2) gm/dL Albumin 3.9 (3.4-5.0) g/dL Ur Collection Type Urine Color (YELLOW) Urine Appearance (CLEAR) Urine pH (5-6) Ur Specific [place] (1.005-1.025) Urine Protein (Negative) Urine Ketones (NEGATIVE) Urine Blood (0-5) Luther/ul Urine Nitrite (NEGATIVE) Urine Bilirubin (NEGATIVE) Urine Urobilinogen (0-1) mg/dL Ur Leukocyte Esterase (NEGATIVE) Urine Culture Reflexed (NO) Urine Glucose (NEGATIVE) mg/dL Salicylates (2.8-20.0) mg/dl Urine Opiates Level (NEGATIVE) Ur Methadone (NEGATIVE) Acetaminophen (10-30) ug/ml Urine Barbiturates (NEGATIVE) Phenytoin (10-20) ug/ml Ur Phencyclidine (PCP) (NEGATIVE) Urine Amphetamine (NEGATIVE) U Benzodiazepine Level (NEGATIVE) Urine Cocaine (NEGATIVE) Urine Marijuana (THC) (NEGATIVE) Ethyl Alcohol (0.00-0.01) % Influenza Type A Ag (NEGATIVE) Influenza Type B Ag (NEGATIVE) RSV (PCR) (Negative) Specimen Received 05/26/17 05/26/17 Range/Units 00:15 00:15 WBC (4.0-10.5) K/mm3 RBC (4.1-5.6) M/mm3 Hgb (12.5-18.0) gm/dl Hct (42-50) % MCV (78-100) fl MCH (26-32) pg MCHC (32-36) g/dl RDW (11.5-14.0) % Plt Count (150-450) K/mm3 MPV (6-9.5) fl Gran % (36.0-66.0) % Lymphocytes % (24.0-44.0) % Monocytes % (0.0-12.0) % Eosinophils % (0.00-5.0) % Basophils % (0.0-0.4) % Basophils # (0-0.4) D-Dimer (0-500) ng/mL Sodium (136-145) mEq/L Potassium (3.5-5.1) mEq/L Chloride (98-107) mEq/L Carbon Dioxide (21-32) mEq/L Anion Gap (5-15) MEQ/L BUN (9-20) mg/dL Creatinine (0.55-1.30) mg/dl Estimated GFR ML/MIN Glucose (70-110) MG/DL Lactic Acid (0.4-2.0) Calcium (8.5-10.1) mg/dL Magnesium (1.8-2.4) mg/dL Total Bilirubin (0.2-1.0) mg/dL AST (15-37) U/L ALT (12-78) U/L Alkaline Phosphatase (46-116) U/L Troponin I (0.000-0.056) ng/ml NT-Pro-B Natriuret Pep (0-125) pg/ml Serum Total Protein (6.4-8.2) gm/dL Albumin (3.4-5.0) g/dL Ur Collection Type VOID Urine Color YELLOW (YELLOW) Urine Appearance CLEAR (CLEAR) Urine pH 5.0 (5-6) Ur Specific [place] 1.010 (1.005-1.025) Urine Protein NEGATIVE (Negative) Urine Ketones NEGATIVE (NEGATIVE) Urine Blood NEGATIVE (0-5) Luther/ul Urine Nitrite NEGATIVE (NEGATIVE) Urine Bilirubin NEGATIVE (NEGATIVE) Urine Urobilinogen NORMAL (0-1) mg/dL Ur Leukocyte Esterase NEGATIVE (NEGATIVE) Urine Culture Reflexed NO (NO) Urine Glucose NEGATIVE (NEGATIVE) mg/dL Salicylates (2.8-20.0) mg/dl Urine Opiates Level NEG. (NEGATIVE) Ur Methadone NEG. (NEGATIVE) Acetaminophen (10-30) ug/ml Urine Barbiturates NEG. (NEGATIVE) Phenytoin (10-20) ug/ml Ur Phencyclidine (PCP) NEG. (NEGATIVE) Urine Amphetamine NEG. (NEGATIVE) U Benzodiazepine Level NEG. (NEGATIVE) Urine Cocaine NEG. (NEGATIVE) Urine Marijuana (THC) NEG. (NEGATIVE) Ethyl Alcohol (0.00-0.01) % Influenza Type A Ag (NEGATIVE) Influenza Type B Ag (NEGATIVE) RSV (PCR) (Negative) Specimen Received 05/27/17 0010 - Progress Progress: improved, re-examined Air Movement: good Progress Note: 05/26/17 23:31 pt was observed to be nonresponsive like an absence seizure or psychomotor seizure with involuntary movements of right arm twitching in ER - no loss of bowel or bladder control. 05/27/17 01:[address] Darleen Braun and she wishes to transfer the pt to [facility] for further workup of seizures. THe pt did not wish this and then preferred DC without further treatment in hospital at this time- he states that he will pursue outpt workup and continue this treatment no further seizures observed in ER and was found to be clinically sober answering all questions coherently at this time , having resumed a normal mental status- family was contacted and to eventually drive pt home after discharge - and not allow to drive until seizures worked up fully by neurologist and cleared for driving- family also agrees to this as well after discussion of risk of or further complications from the pts identified and any undetected evolving conditions. He and the family each have the capacity to make this choice both having a clinical normal mental status at this time. 05/27/17 02:14 05/27/17 02:34 the patient's family did not respond to transport the pt home/observe at home and will not be available to pick him up until a few more hours. This will increase our observation time until they arrive at the hospital to take the patient and sign forms with him . It is in the patient's best safety interest to not release him until a responsible person is available to take him home. Therefore we must continue to observe him until they are available; 05/27/17 02:[address] Sweta braun and she agrees and pt agrees that it is best to do obs here even without neuro since that is safer than no obs here- pt finally agrees to this - a partial AMA is done for the refusal of transfer. Blood Culture(s) Obtained: No Antibiotics given: Yes Discussed with : Darleen Mcduffie Will see patient in: hospital (observation), other (Dr. Braun - covering - did not wish admitted her [facility] - but pt would not allow transfer.) Counseled pt/family regarding: drug and/or alcohol abuse, lab results, diagnosis , need for follow-up, rad results - Departure Time of Disposition: 02:12 Departure Disposition: Observation, AMA Clinical Impression: Chronic alcohol use, COPD exacerbation, Seizure disorder, Hyponatremia, RLL nodule, CAD (coronary artery disease), Altered mental status, unspecified Condition: Good Critical Care Time: No Referrals: KRISTY JIMENEZ MD [Primary Care Provider] - Instructions: Alcohol Use - When Is Drinking a Problem?, Shortness of Breath ( Dyspnea) (DC), Exacerbation of COPD (DC), Alcohol Abuse and Alcoholism (DC), Coronary Heart Disease, Seizures, Hyponatremia Additional Instructions: You have evidence for risk of coronary artery disease on cat scan even though there is no evidence for an acute heart problem at this time. THere is a nodule in your right lung which needs to be followed up with your Dr. We believe that you have had symptoms consistent with a seizure disorder and there needs to be further testing performed and treatment by a neurologist - we have provided a few days worth of this seizure medicine in a prescription until you can see your Dr. Your sodium level is low which may also aggravate or cause seizures , and this is best treated in the hospital , and you have agreed to initial treatment on obs here Drink fluids with electrolytes such as gatorade to help restore your sodium level - and the additional instructions provided. Please return in the meantime if there are further seizures or any other concerns.
[2017-05-26 23:07] LABS: Lactic Acid 2.2 (0.4-2.0)
[2017-05-26] MEDS ORDERED: Zosyn INJ IV ONE (23:08)
[2017-05-26] MEDS ORDERED: ROCEPHIN 1 Gm-D5w 50 ml Bag** 1 G/50 ML IVPB IV ONE (23:08)
[2017-05-26] MEDS ORDERED: Sodium Chloride 0.9% 1000 ML 1,000 ML ONE (23:08)
[2017-05-26 23:09] LABS: BASOPHIL % 0.5 % (0.0-0.4); Basophil (Absolute #) 0.05 (0-0.4); Eosinophil % 2.6 % (0.00-5.0); Eosinophil (Absolute #) 0.24 (0-0.5); Granulocyte Absolute (ANC) 4.81 (1.4-6.9); Granulocytes % 51.1 % (36.0-66.0); Hemoglobin 16.3 gm/dl (12.5-18.0); Lymphocyte (Absolute #) 3.45 (1.0-4.6); Lymphocytes % 36.7 % (24.0-44.0); Mean Corpuscular Hemoglobin 32.6 pg (26-32); Mean Corpuscular Hgb Concent. 33.3 g/dl (32-36); Mean Platelet Volume 9.3 fl (6-9.5); Monocyte (Absolute #) 0.86 (0.0-1.3); Monocytes % 9.1 % (0.0-12.0); Platelet Count 187 K/mm3 (150-450); Red Cell Distribution Width 13.6 % (11.5-14.0); White Blood Count 9.4 K/mm3 (4.0-10.5)
[2017-05-26] MEDS ORDERED: D5w 100ML Mini Bag 100 ML 100 ML IV ONE (23:09)
[2017-05-26] MEDS ORDERED: LEVOFLOXACIN 750MG/150ML D5W 750 MG/150 ML BAG IV STA (23:14)
[2017-05-26] MEDS ORDERED: THIAMINE 200 MG/2 ML IV ONE (23:19)
[2017-05-26] MEDS ORDERED: cereBYX 50 MG/ML*** 500 MG in Sodium Chloride 0.9% 100 ML IVPB 100 ML IV ONE (23:32)
[2017-05-26] MEDS ORDERED: Sodium Chloride 0.9% 1000 ML 1,000 ML IV STA (23:32)
[2017-05-26 23:36] LABS: SALICYLATE 6.9 mg/dl (2.8-20.0)
[2017-05-26 23:37] LABS: ACETAMINOPHEN < 2.0 ug/ml (10-30); ETHYL ALCOHOL 0.321 % (0.00-0.01)
[2017-05-26 23:43] LABS: ALBUMIN 3.9 g/dL (3.4-5.0); ALKALINE PHOSPHATASE 51 U/L (46-116); BLOOD UREA NITROGEN 10 mg/dL (9-20); CHLORIDE 97 mEq/L (98-107); Calcium 8.7 mg/dL (8.5-10.1); Carbon Dioxide 22.9 mEq/L (21-32); Creatinine 1 0.82 mg/dl (0.55-1.30); EST GLOMERULAR FILTRATION RATE > 60 ML/MIN; Glucose 97 MG/DL (70-110); NT PRO BNP 67 pg/ml (0-125); Potassium 3.5 mEq/L (3.5-5.1); SGOT/AST 25 U/L (15-37); SGPT/ALT 20 U/L (12-78); SODIUM 125 mEq/L (136-145); Total Protein 7.5 gm/dL (6.4-8.2)
[2017-05-26] MEDS ORDERED: Ativan 1 MG PO ONE (23:45)
[2017-05-27] MEDS ORDERED: CEREBYX IV ONE (00:01)
[2017-05-27] MEDS ORDERED: SODIUM CHLORIDE 0.9% IV ONE (00:01)
[2017-05-27] MEDS ORDERED: THIAMINE 200 MG/2 ML ONE (00:14)
[2017-05-27] MEDS ORDERED: Magnesium 1 Gm / 100 Ml D5W*** 100 ML IV ONE ×2 (00:14→01:11)
[2017-05-27] MEDS ORDERED: Ativan 1 MG ONE ×2 (00:14→03:01)
[2017-05-27] MEDS: Magnesium 1 Gm / 100 Ml D5W*** 100 ML IV SCH ×2 (00:16→01:18)
[2017-05-27] MEDS ORDERED: Sodium Chloride 0.9% 1000 ML 1,000 ML ONE (00:19)
[2017-05-27 00:21] LABS: INFLUENZA A NEGATIVE (NEGATIVE); INFLUENZA B NEGATIVE (NEGATIVE); RESPIRATORY SYNCTIAL VIRUS NEGATIVE (Negative)
[2017-05-27 00:22] LABS: Appearance CLEAR (CLEAR); Bilirubin NEGATIVE (NEGATIVE); Blood NEGATIVE Ery/ul (0-5); Glucose NEGATIVE (NEGATIVE); Ketones NEGATIVE (NEGATIVE); Leukocyte Esterase NEGATIVE (NEGATIVE); Nitrite NEGATIVE (NEGATIVE); Protein,Urine Dip NEGATIVE (Negative); Urobilinogen NORMAL mg/dL (0-1)
[2017-05-27 00:26] LABS: Amphetamine,Urine NEG. (NEGATIVE); Barbiturate,Urine NEG. (NEGATIVE); Benzodiazepine,Urine NEG. (NEGATIVE); Cocaine,Urine NEG. (NEGATIVE); Methadone,Urine NEG. (NEGATIVE); Opiate,Urine NEG. (NEGATIVE); PCP,Urine NEG. (NEGATIVE); THC,Urine NEG. (NEGATIVE)
[2017-05-27] MEDS ORDERED: LEVOFLOXACIN 750MG/150ML D5W 750 MG/150 ML BAG IV ONE (01:11)
[2017-05-27] MEDS ORDERED: Nicoderm CQ 21 MG TOP ONE (02:01)
[2017-05-27] MEDS ORDERED: Ativan 1 MG PO ONE (02:02)
[2017-05-27] MEDS ORDERED: cereBYX 50 MG/ML ONE (02:16)
[2017-05-27] MEDS ORDERED: Sodium Chloride 0.9% 100 ML IVPB 200 ML IV ONE (02:16)
[2017-05-27] MEDS ORDERED: solu-MEDROL 125 MG IV SCH ×2 (03:38→12:00)
[2017-05-27] MEDS ORDERED: DUONEB 0.5-3 MG/3 ml Neb IH PRN (03:38)
[2017-05-27] MEDS ORDERED: Ativan 1 MG PO PRN (03:38)
[2017-05-27] MEDS ORDERED: Phenergan 25 MG INJ IM PRN (03:38)
[2017-05-27] MEDS ORDERED: Sodium Chloride 0.9% 1000 ML 1,000 ML IV SCH (03:38)
[2017-05-27] MEDS ORDERED: TYLENOL 325 MG PO PRN (03:38)
[2017-05-27] MEDS ORDERED: Ativan 2 MG/1 ML VIAL IV PRN (03:38)
[2017-05-27] MEDS ORDERED: NovoLIN R SQ PRN (03:38)
[2017-05-27] MEDS ORDERED: Nicoderm CQ 21 MG TOP SCH ×2 (03:38→22:00)
[2017-05-27 04:03] VITALS: O2SAT 93
[2017-05-27 05:41] LABS: BASOPHIL % 0.4 % (0.0-0.4); Basophil (Absolute #) 0.02 (0-0.4); Eosinophil % 0.2 % (0.00-5.0); Eosinophil (Absolute #) 0.01 (0-0.5); Granulocytes % 84.1 % (36.0-66.0); Hematocrit 48.3 % (42-50); Lymphocytes % 14.6 % (24.0-44.0); Mean Cell Volume 98.2 fl (78-100); Mean Corpuscular Hemoglobin 32.5 pg (26-32); Mean Corpuscular Hgb Concent. 33.1 g/dl (32-36); Mean Platelet Volume 9.5 fl (6-9.5); Monocyte (Absolute #) 0.04 (0.0-1.3); Monocytes % 0.7 % (0.0-12.0); Platelet Count 197 K/mm3 (150-450); Red Blood Count 4.92 M/mm3 (4.1-5.6); Red Cell Distribution Width 13.7 % (11.5-14.0); White Blood Count 5.5 K/mm3 (4.0-10.5)
[2017-05-27] MEDS ORDERED: Zosyn 3.375GM/100 Ml D5W 3.375 GM/100 ML IVPB IV SCH (06:00)
[2017-05-27 06:06] LABS: ALBUMIN 3.7 g/dL (3.4-5.0); ALKALINE PHOSPHATASE 45 U/L (46-116); ANION GAP 18.7 MEQ/L (5-15); BLOOD UREA NITROGEN 8 mg/dL (9-20); CHLORIDE 107 mEq/L (98-107); Carbon Dioxide 18.7 mEq/L (21-32); Creatinine 1 0.77 mg/dl (0.55-1.30); EST GLOMERULAR FILTRATION RATE > 60 ML/MIN; Glucose 130 MG/DL (70-110); Potassium 4.2 mEq/L (3.5-5.1); SGOT/AST 23 U/L (15-37); SGPT/ALT 20 U/L (12-78); SODIUM 140 mEq/L (136-145); Total Protein 7.2 gm/dL (6.4-8.2)
--- NOTE | 2017-05-27 08:10 | XRAY ---
Indication: Short of breath. Elevated d-dimer. History COPD. Multiple contiguous axial images obtained through the chest using 80 cc Isovue 370 contrast and PE protocol. Comparison: None There is satisfactory opacification of the pulmonary arteries to include the lobar and segmental branches. No filling defect or pulmonary embolus. Heart is not enlarged. Aorta is normal in course and caliber. A few right hilar calcified nodes. No pathologic mediastinal/hilar lymphadenopathy. Examination of the lung parenchyma demonstrates hyperinflated lungs with minimal right middle lobe hazy groundglass opacity. Minimal right middle lobe and lingular fibrosis/scarring. Right lower lobe calcified granuloma. No suspicious pulmonary mass, infiltrate, or effusion. Bony thorax intact. Limited upper abdomen is unremarkable. Impression: 1. Negative pulmonary embolus. 2. Right middle lobe airspace disease. 3. Evidence for old granulomatous disease. Comment: Preliminary interpretation was made by [facility]. No discrepancy. CTDI 12.28
--- NOTE | 2017-05-27 08:11 | XRAY ---
Indication: Seizure activity. No known injury. Multiple contiguous axial images obtained through the head without contrast. Comparison: None Age appropriate global atrophy and minimal periventricular degenerative micro-ischemia. No acute intracranial hemorrhage, abnormal extra-axial fluid collection, or mass effect. Fourth ventricle is midline without hydrocephalus. Bony calvarium intact. Moderate mucosal thickening of both ethmoid and left maxillary sinuses. Also partial opacification of the left mastoid air cells. Impression: 1. Nonacute senile brain. 2. Incidental paranasal sinus disease. Partial opacification of the left mastoid air cells presumed inflammatory. Comment: Preliminary interpretation was made by [facility]. No discrepancy. CTDI 50.87
--- NOTE | 2017-05-27 08:12 | XRAY ---
Indication: Short of breath. Comparison: February 18, 2017. PA/lateral chest again hyperinflated with new CT proven right middle lobe infiltrate. Stable right base calcified granuloma. Remaining heart, lungs, and bony thorax unremarkable.
[2017-05-27 09:27] VITALS: BP 122/68; PULSE 89
--- NOTE | 2017-05-27 09:32 | PCM.HP ---
History of Present Illness - Chief Complaint Chief Complaint: shortness of breath and seizure activity for 1-2 days History of Present Illness: SR is a 62 year old male.pt is 62 year old male with hx of COPD and alcohol use presenting with similar symptoms today of short of breath and drinking by his own history no hx of trauma - no CP or abd pain, but family was more concerned today due to a brief period of possible syncope. EMS found the pt arousable and responsive , family described as slumping over . No N or V . although this may have been an effect of alcohol sedation, we should perform some testing to look for underlying pathology. As the neuro exam is normal at this time and no sign of trauma , and no actual reported signs such as convulsions , or post ictal findings - the history does not suggest typical grand mal seizures ; however may be an absence, temporal lobe , or partial psychomotor seizure- later was observed in ER with involuntary movements of right arm and to be unresponsive but appearing awake; Timing/Duration: today Severity of Dyspnea-Max: moderate Severity of Dyspnea-Current: moderate Possible Cause: chronic episodes Modifying Factors: Improves With: albuterol nebulizer, coughing Associated Symptoms: cough, wheezing, productive cough - Review of Systems Constitutional: No Fever, No Chills Eyes: No Symptoms Ears, Nose, & Throat: No Symptoms Respiratory: Cough, No Short Of Breath Cardiac: No Chest Pain, No Edema, No Syncope Abdominal/Gastrointestinal: No Abdominal Pain, No Nausea, No Vomiting, No Diarrhea Genitourinary Symptoms: No Dysuria Musculoskeletal: No Back Pain, No Neck Pain Skin: No Rash Neurological: No Dizziness, No Focal Weakness, No Sensory Changes Psychological: No Symptoms Endocrine: No Symptoms Hematologic/Lymphatic: No Symptoms Immunological/Allergic: No Symptoms Medications & Allergies Home Medications: Home Medication List Ipratropium/Albuterol Sulfate [Combivent Inhaler] 14.7 gm IH UD 01/06/17 [ History Confirmed 04/16/17] Allergies/Adverse Reactions: Allergies Allergy/AdvReac Type Severity Reaction Status Date / Time No Known Drug Allergies Allergy Verified 01/06/17 16:37 - Past Medical History Past Medical History: Yes Neurological History: No Pertinent History ENT History: No Pertinent History Cardiac History: No Pertinent History Respiratory History: COPD, Other Endocrine Medical History: No Pertinent History Musculoskelatal History: No Pertinent History GI Medical History: No Pertinent History History: No Pertinent History Pyscho-Social History: Other Male Reproductive Disorders: No Pertinent History Comment: recalled, patient sleeping refuses to answer - Past Surgical History Past Surgical History: No - Social History Smoking Status: Current every day smoker How long have you smoked: 50 years Exposure to second hand smoke: Yes Alcohol: Daily Drug Use: none - Physical Exam Vital Signs: Vital Signs - 24 hr Temp Pulse Resp BP Pulse Ox 05/27/17 08:00 98.4 F 89 18 122/68 93 L 05/27/17 03:51 98.0 F 91 H 18 126/70 93 L 05/27/17 03:38 93 L 05/27/17 03:14 85 15 106/58 92 L 05/27/17 02:54 95 05/27/17 01:22 84 18 120/71 92 L 05/26/17 22:55 95 05/26/17 22:54 18 95 05/26/17 22:46 97.4 F 96 H 15 135/73 94 L Oxygen-Last 24 hours O2 Percentage 2 Liters = 28% O2 Percentage 2 Liters = 28% O2 Percentage 2 Liters = 28% O2 Percentage 2 Liters = 28% General Appearance: no apparent distress, alert Neurologic Exam: alert, 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, cooperative, normal mood/affect, nml cerebellar function, nml station & gait, sensation nml, No motor deficits Eye Exam: PERRL/EOMI, eyes nml inspection Ears, Nose, Throat Exam: normal ENT inspection, TMs normal, pharynx normal, moist mucous membranes Neck Exam: normal inspection, non-tender, supple, full range of motion Respiratory Exam: normal breath sounds, lungs clear, No respiratory distress Cardiovascular Exam: regular rate/rhythm, normal heart sounds, normal peripheral pulses Gastrointestinal/Abdomen Exam: soft, normal bowel sounds, No tenderness, No mass Back Exam: normal inspection, normal range of motion, No CVA tenderness, No vertebral tenderness Extremity Exam: normal inspection, normal range of motion, pelvis stable Skin Exam: normal color, warm, dry, No rash Lymphatic Exam: No adenopathy Results - Labs Lab/Micro Results: Lab Results-Last 24 Hours 05/27/17 05/27/17 05/27/17 Range/Units 05:15 05:15 05:15 WBC 5.5 (4.0-10.5) K/mm3 RBC 4.92 (4.1-5.6) M/mm3 Hgb 16.0 (12.5-18.0) gm/dl Hct 48.3 (42-50) % MCV 98.2 (78-100) fl MCH 32.5 H (26-32) pg MCHC 33.1 (32-36) g/dl RDW 13.7 (11.5-14.0) % Plt Count 197 (150-450) K/mm3 MPV 9.5 (6-9.5) fl Gran % 84.1 H (36.0-66.0) % Lymphocytes % 14.6 L (24.0-44.0) % Monocytes % 0.7 (0.0-12.0) % Eosinophils % 0.2 (0.00-5.0) % Basophils % 0.4 (0.0-0.4) % Basophils # 0.02 (0-0.4) Sodium 140 (136-145) mEq/L Potassium 4.2 (3.5-5.1) mEq/L Chloride 107 (98-107) mEq/L Carbon Dioxide 18.7 L (21-32) mEq/L Anion Gap 18.7 H (5-15) MEQ/L BUN 8 L (9-20) mg/dL Creatinine 0.77 (0.55-1.30) mg/dl Estimated GFR > 60 ML/MIN Glucose 130 H (70-110) MG/DL Calcium 8.0 L (8.5-10.1) mg/dL Total Bilirubin 0.20 (0.2-1.0) mg/dL AST 23 (15-37) U/L ALT 20 (12-78) U/L Alkaline Phosphatase 45 L (46-116) U/L Troponin I 0.017 (0.000-0.056) ng/ml Serum Total Protein 7.2 (6.4-8.2) gm/dL Albumin 3.7 (3.4-5.0) g/dL - Other Procedures and Tests Respiratory Therapy 05/27/17 04:03 Smoking Cessation Education ONCE Assessment/Plan (1) Altered mental status, unspecified Current Visit: Yes Status: Acute Qualifiers: Altered mental status type: disorientation Qualified Code(s): R41.0 - Disorientation, unspecified Code(s): R41.82 - ALTERED MENTAL STATUS, UNSPECIFIED (2) Seizure disorder Current Visit: Yes Status: Acute Code(s): G40.909 - EPILEPSY, UNSP, NOT INTRACTABLE, WITHOUT STATUS EPILEPTICUS (3) COPD exacerbation Current Visit: Yes Status: Acute Code(s): J44.1 - CHRONIC OBSTRUCTIVE PULMONARY DISEASE W (ACUTE) EXACERBATION
[2017-05-27] MEDS ORDERED: Pepcid 20 MG VIAL IV SCH (10:00)
[2017-05-27] MEDS ORDERED: Dilantin 100 MG PO SCH (10:00)
[2017-05-27] MEDS ORDERED: LEVOFLOXACIN 750MG/150ML D5W 750 MG/150 ML BAG IV SCH (22:00)
== END 2017-05-27 09:55 | disposition home or self-care (01) ==
LOC: ED 22:44 → MED SURG 05-27 03:36
PROVIDERS: ADMIT General Practice; ATTEND General Practice
DX: R41.82 Altered mental status, unspecified (principal); G40.909 Epilepsy, unspecified, not intractable, without status epilepticus; J44.1 Chronic obstructive pulmonary disease with (acute) exacerbation; Z72.0 Tobacco use; F10.99 Alcohol use, unspecified with unspecified alcohol-induced disorder
CPT/HCPCS: 36000; 36415; 70450; 71046; 71260; 80053; 80185; 80307; 81002; 82962; 83605; 83735; 83880; 84484; 85025; 85379; 87631; 93005; 93041; 93268; 96360; 96361; 96365; 96367; 96368; 96374; 99285; G0378; G0481; J0696; J1956; J2060; J2543; J2930; J3475; Q2009; A9270-GY

== ENCOUNTER 2017-10-05 20:40 | Observation (INO) | payer OTHER, SELFPAY ==
[2017-10-05] MEDS ORDERED: DUONEB 0.5-3 MG/3 ml Neb IH ONE ×2 (21:04→21:06)
--- NOTE | 2017-10-05 21:39 | ERPHSYRPT ---
- History of Present Illness Time Seen by Provider: 10/05/17 21:22 Source: patient Exam Limitations: no limitations Patient Subjective Stated Complaint: SOB x 2 days. has hx COPD denies CP productive cough. Triage Nursing Assessment: alert and slightly labored. audible wheezes. wheezes auscultated in all talley. states productive cough but unsure of color. increased SOB on exertion. states smokes 3 PPD. Physician History: Pt started c/o productive cough, increasing SOB 2 days ago, coughing up clear phlegm, denies chest pain, nausea, vomiting, fever, chills, cold symptoms. He is 2-3 pack/day smoker, he has been using his inhaler and nebulizer without any relief. Timing/Duration: day(s) (2) Activities at Onset: none Severity of Dyspnea-Max: moderate Severity of Dyspnea-Current: moderate Possible Cause: frequent episodes Modifying Factors: Improves With: nothing Associated Symptoms: cough Allergies/Adverse Reactions: No Known Drug Allergies Allergy (Verified 01/06/17 16:37) Home Medications: Ipratropium/Albuterol Sulfate [Combivent Inhaler] 14.7 gm IH UD 01/06/17 [ History] Hx Tetanus, Diphtheria Vaccination/Date Given: No Hx Influenza Vaccination/Date Given: No Hx Pneumococcal Vaccination/Date Given: No Immunizations Up to Date: (unknown) - Review of Systems Constitutional: No Symptoms Respiratory: Cough, Dyspnea Cardiac: No Symptoms All Other Systems: Reviewed and Negative - Past Medical History Pertinent Past Medical History: Yes Neurological History: No Pertinent History ENT History: No Pertinent History Cardiac History: No Pertinent History Respiratory History: COPD, Other Endocrine Medical History: No Pertinent History Musculoskeletal History: No Pertinent History GI Medical History: No Pertinent History History: No Pertinent History Psycho-Social History: Other Male Reproductive Disorders: No Pertinent History Other Medical History: recalled, patient sleeping refuses to answer - Past Surgical History Past Surgical History: Yes - Social History Smoking Status: Heavy tobacco smoker How long have you smoked: 50 years Exposure to second hand smoke: No Alcohol Use: Chronic (daily throughout the day including work time) Drug Use: none Patient Lives Alone: No - Nursing Vital Signs Nursing Vital Signs: Initial Vital Signs Temperature 97.6 F 10/05/17 20:51 Pulse Rate 90 10/05/17 20:51 Respiratory Rate 22 10/05/17 20:51 Blood Pressure 166/107 10/05/17 20:51 O2 Sat by Pulse Oximetry 93 L 10/05/17 20:51 Pain Scale Pain Intensity 0 - Physical Exam General Appearance: no apparent distress Eye Exam: eyes nml inspection Ears, Nose, Throat Exam: normal ENT inspection Neck Exam: normal inspection, non-tender, supple, No JVD Respiratory Exam: airway intact, diminished breath sounds (throughout), wheezing (diffuse, mod. mild), No chest tenderness, No respiratory distress, No rhonchi Cardiovascular/Chest Exam: normal heart sounds, regular rate/rhythm, normal peripheral pulses, No murmur, No edema, No JVD Abdominal/Gastrointestinal Exam: soft, normal bowel sounds, No tenderness, No distention, No mass Extremity Exam: non-tender, No no calf tenderness, No no pedal edema, No anayeli' s sign Peripheral Pulses Exam: dorsalis-pedis (R): 3+, dorsalis-pedis (L): 3+ Neurologic Exam: alert, 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, normal mood/affect Skin Exam: normal color, warm, dry, No rash Lymphatic Exam: No adenopathy SpO2 Interpretation: borderline oxygenation SpO2: 93 Oxygen Delivery: Room Air - Course Nursing assessment & vital signs reviewed: Yes EKG Interpreted by Me: RATE (88/min), NORMAL AXIS, Non-specific ST Changes, Other (unchanged from 05/26/17) - CT Exams Chest CT Interpretation: Negative, Tele-radiologist Report Ordered Tests: Active Orders 24 hr Category Date Time Status Life Science Technician STAT Care 10/05/17 21:31 Active EKG-ER Only STAT Care 10/05/17 21:30 Active IV Insertion STAT Care 10/05/17 21:30 Active Oxygen-ED Only NASAL CANNULA 2 lpm Care 10/05/17 22:01 Active CHEST WITH CONTRAST [CT] Stat Exams 10/05/17 22:45 Taken ABG [ARTERIAL BLOOD GASES] Stat Lab 10/05/17 21:35 Completed BLOOD CULTURE Stat Lab 10/05/17 10:15 Received CBC W DIFF Stat Lab 10/05/17 21:30 Completed CMP Stat Lab 10/05/17 21:30 Completed D-DIMER QUANTITATION Stat Lab 10/05/17 21:30 Completed Lactic Acid Stat Lab 10/05/17 21:35 Completed MAGNESIUM Stat Lab 10/05/17 21:30 Completed NT PRO BNP Stat Lab 10/05/17 21:30 Completed PROTIME WITH INR Stat Lab 10/05/17 21:30 Completed TROPONIN Q3H Lab 10/05/17 21:30 Completed TROPONIN Q3H Lab 10/06/17 00:30 Ordered TROPONIN Q3H Lab 10/06/17 03:30 Ordered TROPONIN Q3H Lab 10/06/17 06:30 Ordered TROPONIN Q3H Lab 10/06/17 09:30 Ordered Respiratory Nebulizer STAT RT 10/05/17 21:06 Completed Respiratory Nebulizer STAT RT 10/06/17 00:01 Completed Medication Summary Discontinued Medications Generic Name Dose Route Start Last Admin Trade Name Freq PRN Reason Stop Dose Admin Albuterol/Ipratropium Confirm 10/05/17 21:04 Duoneb 0.5-3 Mg/3 Ml Neb Administered 10/05/17 21:05 Dose 3 ml IH .STK-MED ONE Albuterol/Ipratropium 3 ml 10/05/17 21:06 10/05/17 21:07 Duoneb 0.5-3 Mg/3 Ml Neb IH 10/05/17 21:07 3 ml STAT ONE Administration Albuterol/Ipratropium 3 ml 10/06/17 00:01 10/06/17 00:08 Duoneb 0.5-3 Mg/3 Ml Neb IH 10/06/17 00:02 3 ml STAT ONE Administration Albuterol/Ipratropium Confirm 10/06/17 00:04 Duoneb 0.5-3 Mg/3 Ml Neb Administered 10/06/17 00:05 Dose 3 ml IH .STK-MED ONE Methylprednisolone Sodium Succinate 125 mg 10/05/17 21:45 10/05/17 21:52 Solu-Medrol 125 Mg IV 10/05/17 21:46 125 mg STAT ONE Administration Methylprednisolone Sodium Succinate Confirm 10/05/17 21:49 Solu-Medrol 125 Mg Administered 10/05/17 21:50 Dose 125 mg .ROUTE .STK-MED ONE Lab/Rad Data: Laboratory Result Diagrams 10/05/17 21:30 10/05/17 21:30 Laboratory Results 10/05/17 10/05/17 10/05/17 Range/Units 21:35 21:35 21:30 WBC (4.0-10.5) K/mm3 RBC (4.1-5.6) M/mm3 Hgb (12.5-18.0) gm/dl Hct (42-50) % MCV (78-100) fl MCH (26-32) pg MCHC (32-36) g/dl RDW (11.5-14.0) % Plt Count (150-450) K/mm3 MPV (6-9.5) fl Gran % (36.0-66.0) % Eos # (Auto) (0-0.5) Absolute Lymphs (auto) (1.0-4.6) Absolute Monos (auto) (0.0-1.3) Lymphocytes % (24.0-44.0) % Monocytes % (0.0-12.0) % Eosinophils % (0.00-5.0) % Basophils % (0.0-0.4) % Absolute Granulocytes (1.4-6.9) Basophils # (0-0.4) PT 9.7 (8.83-12.87) SECONDS INR 0.84 (0.8-3.0) D-Dimer 743 H* (215-500) ng/mL Puncture Site RIGHT BRACHIAL pCO2 44 (35-45) mmHg pO2 52 L (75-100) mmHg Base Excess -0.2 (-2.0-2.0) O2 Saturation 81.8 L (94-100) g/dF ABG pH 7.37 (7.35-7.45) ABG HCO3 25.4 (22-28) ABG O2 Sat (Measured) 90.3 L (95-100) % Devon Test NOT APPLICABLE A-a Gradient 43 a/A Ratio 0.55 Hemoglobin 16.1 Carboxyhemoglobin 8.5 H* (0.0-6.9) % THgb Methemoglobin 0.9 L (1.4-1.5) % Temperature 37.0 C POC O2 Flow Rate 21 % Sodium (137-145) mmol/L Potassium 4.1 (3.5-5.1) mmol/L Chloride (98-107) mmol/L Carbon Dioxide (22-30) mmol/L Anion Gap (5-15) MEQ/L BUN (9-20) mg/dL Creatinine (0.66-1.25) mg/dL Estimated GFR ML/MIN Glucose (74-106) mg/dL Lactic Acid 1.3 (0.4-2.0) Calcium (8.4-10.2) mg/dL Magnesium (1.6-2.3) mg/dL Total Bilirubin (0.2-1.3) mg/dL AST (17-59) U/L ALT (0-50) U/L Alkaline Phosphatase (38-126) U/L Troponin I (0.000-0.034) ng/mL NT-Pro-B Natriuret Pep (0-900) pg/mL Serum Total Protein (6.3-8.2) g/dL Albumin (3.5-5.0) g/dL 10/05/17 10/05/17 10/05/17 Range/Units 21:30 21:30 21:30 WBC 8.5 (4.0-10.5) K/mm3 RBC 4.92 (4.1-5.6) M/mm3 Hgb 16.4 (12.5-18.0) gm/dl Hct 47.8 (42-50) % MCV 97.2 (78-100) fl MCH 33.3 H (26-32) pg MCHC 34.3 (32-36) g/dl RDW 14.1 H (11.5-14.0) % Plt Count 178 (150-450) K/mm3 MPV 9.9 H (6-9.5) fl Gran % 53.6 (36.0-66.0) % Eos # (Auto) 0.25 (0-0.5) Absolute Lymphs (auto) 2.94 (1.0-4.6) Absolute Monos (auto) 0.72 (0.0-1.3) Lymphocytes % 34.5 (24.0-44.0) % Monocytes % 8.4 (0.0-12.0) % Eosinophils % 2.9 (0.00-5.0) % Basophils % 0.6 (0.0-0.4) % Absolute Granulocytes 4.57 (1.4-6.9) Basophils # 0.05 (0-0.4) PT (8.83-12.87) SECONDS INR (0.8-3.0) D-Dimer (215-500) ng/mL Puncture Site pCO2 (35-45) mmHg pO2 (75-100) mmHg Base Excess (-2.0-2.0) O2 Saturation (94-100) g/dF ABG pH (7.35-7.45) ABG HCO3 (22-28) ABG O2 Sat (Measured) (95-100) % Devon Test A-a Gradient a/A Ratio Hemoglobin Carboxyhemoglobin (0.0-6.9) % THgb Methemoglobin (1.4-1.5) % Temperature C POC O2 Flow Rate % Sodium 138 (137-145) mmol/L Potassium 4.3 (3.5-5.1) mmol/L Chloride 104 (98-107) mmol/L Carbon Dioxide 23 (22-30) mmol/L Anion Gap 15.3 H (5-15) MEQ/L BUN 9 (9-20) mg/dL Creatinine 0.71 (0.66-1.25) mg/dL Estimated GFR > 60.0 ML/MIN Glucose 73 L (74-106) mg/dL Lactic Acid (0.4-2.0) Calcium 9.5 (8.4-10.2) mg/dL Magnesium 1.9 (1.6-2.3) mg/dL Total Bilirubin 0.30 (0.2-1.3) mg/dL AST 39 (17-59) U/L ALT 26 (0-50) U/L Alkaline Phosphatase 47 (38-126) U/L Troponin I < 0.012 (0.000-0.034) ng/mL NT-Pro-B Natriuret Pep 54.8 (0-900) pg/mL Serum Total Protein 7.5 (6.3-8.2) g/dL Albumin 4.5 (3.5-5.0) g/dL - Progress Progress: improved Air Movement: good Progress Note: 10/06/17 00:29 Improved after Duoneb x2 and iv Solumedrol, afebrile, O2 sat: 94 % on 3l/min, NC , comfortable, asleep. I called Dr Arzate, covering Dr Vogt. I discussed our results and patient's current condition with him, he agreed to admit him for observation to Telemetry with COPD exacerbation. I informed patient, he agreed to be admitted. 10/06/17 00:33 Pt was started on iv Zithromax. Blood Culture(s) Obtained: Yes Antibiotics given: Yes Discussed with Dr.: Other (Dr Arzate) Will see patient in: hospital (observation) Counseled pt/family regarding: lab results, diagnosis, rad results - Departure Time of Disposition: 00:32 Departure Disposition: Observation Clinical Impression: COPD exacerbation Condition: Stable Critical Care Time: No Referrals: KRISTY VOGT MD [Primary Care Provider] -
[2017-10-05 21:40] LABS: BASOPHIL % 0.6 % (0.0-0.4); Basophil (Absolute #) 0.05 (0-0.4); Eosinophil % 2.9 % (0.00-5.0); Eosinophil (Absolute #) 0.25 (0-0.5); Granulocyte Absolute (ANC) 4.57 (1.4-6.9); Granulocytes % 53.6 % (36.0-66.0); Hematocrit 47.8 % (42-50); Hemoglobin 16.4 gm/dl (12.5-18.0); INR 0.84 (0.8-3.0); Lymphocyte (Absolute #) 2.94 (1.0-4.6); Lymphocytes % 34.5 % (24.0-44.0); Mean Cell Volume 97.2 fl (78-100); Mean Corpuscular Hemoglobin 33.3 pg (26-32); Mean Corpuscular Hgb Concent. 34.3 g/dl (32-36); Mean Platelet Volume 9.9 fl (6-9.5); Monocyte (Absolute #) 0.72 (0.0-1.3); Monocytes % 8.4 % (0.0-12.0); Platelet Count 178 K/mm3 (150-450); Red Blood Count 4.92 M/mm3 (4.1-5.6); Red Cell Distribution Width 14.1 % (11.5-14.0); White Blood Count 8.5 K/mm3 (4.0-10.5)
[2017-10-05 21:43] LABS: A-aADO2 43; ABG HEMOGLOBIN 16.1; ABG POTASSIUM 4.1 (3.5-5.1); ARTERIAL BLD GAS O2 SATURATION 90.3 % (95-100); ARTERIAL BLOOD GAS BASE EXCESS -0.2 (-2.0-2.0); ARTERIAL BLOOD GAS FIO2 21 %; ARTERIAL BLOOD GAS PCO2 44 mmHg (35-45); ARTERIAL BLOOD GAS PO2 52 mmHg (75-100); ARTERIAL BLOOD GAS pH 7.37 (7.35-7.45); HCO3- 25.4 (22-28); HGB O2 SAT 81.8 g/dF (94-100); Methhemoglobin 0.9 % (1.4-1.5); paO2 pAO1 0.55
[2017-10-05 21:44] LABS: CARBOXYHEMOGLOBIN 8.5 % THgb (0.0-6.9)
[2017-10-05 21:45] LABS: ABG SITE RIGHT BRACHIAL
[2017-10-05] MEDS ORDERED: solu-MEDROL 125 MG IV ONE (21:45)
[2017-10-05 21:47] LABS: ALBUMIN 4.5 g/dL (3.5-5.0); ALKALINE PHOSPHATASE 47 U/L (38-126); ANION GAP 15.3 MEQ/L (5-15); BLOOD UREA NITROGEN 9 mg/dL (9-20); CHLORIDE 104 mmol/L (98-107); Calcium 9.5 mg/dL (8.4-10.2); Carbon Dioxide 23 mmol/L (22-30); Creatinine 1 0.71 mg/dL (0.66-1.25); Glucose 73 mg/dL (74-106); Potassium 4.3 mmol/L (3.5-5.1); SGOT/AST 39 U/L (17-59); SGPT/ALT 26 U/L (0-50); SODIUM 138 mmol/L (137-145); Total Protein 7.5 g/dL (6.3-8.2)
[2017-10-05] MEDS ORDERED: solu-MEDROL 125 MG ONE (21:49)
[2017-10-05 21:54] LABS: NT PRO BNP 54.8 pg/mL (0-900)
[2017-10-06] MEDS ORDERED: DUONEB 0.5-3 MG/3 ml Neb IH ONE ×2 (00:01→00:04)
[2017-10-06] MEDS ORDERED: Zithromax 500 MG/ 250 ML NaCl Premix 500 MG/250 ML IVPB IV STA (00:32)
[2017-10-06] MEDS ORDERED: Zithromax 500 MG/ 250 ML NaCl Premix 500 MG/250 ML IVPB IV ONE (00:52)
[2017-10-06] MEDS: Sodium Chloride 0.9% 1000 ML 1,000 ML IV SCH ×3 (02:00→21:27)
[2017-10-06] MEDS: DUONEB 0.5-3 MG/3 ml Neb IH SCH ×4 (03:48→18:52)
[2017-10-06] MEDS: solu-MEDROL 125 MG IV SCH ×2 (05:44→12:19)
[2017-10-06 06:24] LABS: Hematocrit 47.1 % (42-50); Hemoglobin 15.9 gm/dl (12.5-18.0); Mean Cell Volume 97.9 fl (78-100); Mean Corpuscular Hemoglobin 33.1 pg (26-32); Mean Corpuscular Hgb Concent. 33.8 g/dl (32-36); Mean Platelet Volume 9.9 fl (6-9.5); Platelet Count 169 K/mm3 (150-450); Red Blood Count 4.81 M/mm3 (4.1-5.6); Red Cell Distribution Width 14.1 % (11.5-14.0)
[2017-10-06 06:38] LABS: ANION GAP 12.1 MEQ/L (5-15); BLOOD UREA NITROGEN 10 mg/dL (9-20); CHLORIDE 105 mmol/L (98-107); Carbon Dioxide 25 mmol/L (22-30); Glucose 138 mg/dL (74-106); Potassium 4.5 mmol/L (3.5-5.1); SODIUM 137 mmol/L (137-145)
[2017-10-06] MEDS ORDERED: Advair Hfa 115/21 Common canister IH SCH (07:00)
[2017-10-06] MEDS ORDERED: MOTRIN 600 MG PO PRN (10:19)
[2017-10-06] MEDS ORDERED: PULMICORT 0.5 MG/2 ML RESPULES IH SCH (10:20)
[2017-10-06] MEDS: Pepcid 20 MG PO SCH ×2 (10:58→21:33)
[2017-10-06] MEDS: ENOXAPARIN SODIUM SQ SCH (12:49)
[2017-10-06] MEDS: ROCEPHIN 1 Gm-D5w 50 ml Bag** 1 G/50 ML IVPB IV SCH (12:49)
[2017-10-06] MEDS: Nicoderm CQ 21 MG TOP SCH (12:49)
[2017-10-06] MEDS: Mucinex 600MG ER Tabs PO SCH ×2 (12:49→21:33)
[2017-10-06] MEDS ORDERED: Zithromax 250 MG TABLET PO SCH (15:00)
[2017-10-06] MEDS: PULMICORT 0.5 MG/2 ML RESPULES IH SCH ×2 (15:49→18:52)
[2017-10-06] MEDS: NovoLOG Insulin SQ PRN ×2 (16:15→21:33)
[2017-10-06] MEDS: solu-MEDROL 40 MG IV SCH (17:23)
[2017-10-06] MEDS ORDERED: Zithromax 500 MG/ 250 ML NaCl Premix 500 MG/250 ML IVPB IV SCH (22:00)
[2017-10-07] MEDS: DUONEB 0.5-3 MG/3 ml Neb IH SCH ×2 (00:42→07:10)
[2017-10-07] MEDS: solu-MEDROL 40 MG IV SCH ×3 (00:46→12:13)
[2017-10-07 06:01] LABS: Hematocrit 43.4 % (42-50); Hemoglobin 14.7 gm/dl (12.5-18.0); Mean Corpuscular Hemoglobin 33.2 pg (26-32); Mean Corpuscular Hgb Concent. 33.9 g/dl (32-36); Mean Platelet Volume 9.9 fl (6-9.5); Platelet Count 172 K/mm3 (150-450); Red Blood Count 4.43 M/mm3 (4.1-5.6); White Blood Count 13.1 K/mm3 (4.0-10.5)
[2017-10-07 06:15] LABS: ANION GAP 9.8 MEQ/L (5-15); BLOOD UREA NITROGEN 16 mg/dL (9-20); CHLORIDE 108 mmol/L (98-107); Calcium 8.7 mg/dL (8.4-10.2); Carbon Dioxide 24 mmol/L (22-30); Creatinine 1 0.63 mg/dL (0.66-1.25); Glucose 154 mg/dL (74-106); Potassium 3.8 mmol/L (3.5-5.1); SODIUM 137 mmol/L (137-145)
[2017-10-07] MEDS: PULMICORT 0.5 MG/2 ML RESPULES IH SCH (07:10)
[2017-10-07] MEDS: Sodium Chloride 0.9% 1000 ML 1,000 ML IV SCH (07:24)
[2017-10-07] MEDS: ENOXAPARIN SODIUM SQ SCH (10:40)
[2017-10-07] MEDS: ROCEPHIN 1 Gm-D5w 50 ml Bag** 1 G/50 ML IVPB IV SCH (10:40)
[2017-10-07] MEDS: Mucinex 600MG ER Tabs PO SCH (10:40)
[2017-10-07] MEDS: Pepcid 20 MG PO SCH (10:40)
[2017-10-07] MEDS: Nicoderm CQ 21 MG TOP SCH (10:44)
[2017-10-07 12:25] VITALS: BP 133/68; PULSE 95; O2SAT 92
--- NOTE | 2017-10-09 10:07 | XRAY ---
Indication: Short of breath and productive cough. Elevated d-dimer. COPD. Multiple contiguous axial images obtained through the chest using 80 cc Isovue 370 contrast and using PE protocol. Comparison: May 27, 2017. There is good opacification of the pulmonary arteries to include the lobar and segmental branches. Again no filling defect or pulmonary embolus. Heart is not enlarged. Aorta is normal in course and caliber. Stable tiny right hilar calcified nodes. No pathologic mediastinal/hilar lymphadenopathy. Examination of the lung parenchyma again hyperinflated with minimal right middle and left lower lobe fibrosis/scarring. Stable right lower lobe calcified granuloma. No suspicious pulmonary mass, infiltrate, or effusion. Bony thorax intact. Limited upper abdomen unremarkable. Impression: 1. Again negative pulmonary embolus. No acute cardiopulmonary abnormalities. 2. Stable COPD, fibrosis/scarring, and evidence for old granulomatous disease. Comment: Preliminary interpretation was made by [facility]. No discrepancy. CTDI 10.00
--- NOTE | 2017-10-09 10:28 | HP ---
CHIEF COMPLAINT/HISTORY OF PRESENT ILLNESS: The patient is hospitalized with chief complaint of having significant shortness of breath associated with cough and sputum production. 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 He has mild intermittent chest pain. He does have shortness of breath and sputum production. He denies any other major health problems including cardiac issues in the past as per him. FAMILY HISTORY: Noncontributory. SOCIAL HISTORY: Positive for smoking two packs a day for a long, long time, started earlier than 11. Alcohol negative. CURRENT MEDICATIONS: ALLERGIES: NKDA. REVIEW OF SYSTEMS: Positive for shortness of breath. Positive for nicotine addiction. Intermittent chest pain. He denies any active chest pain. He denied any cardiac problems in the past. GI: No heartburn or reflux. EXTREMITIES: No edema. NEUROLOGIC: Intact. PHYSICAL EXAMINATION: The patient appears reasonable at this time. Vital signs: Blood pressure was initially high 166/107, pulse 90, respiratory rate 22, temperature 97.6F. Oxygen 93% on nasal cannula. HEENT: Pupils are active. NECK: No JVD. No thyromegaly. No lymphadenopathy. CHEST: Bilateral diffuse breath sounds occasional mild rhonchi present throughout. HEART: S1, S2 normal. ABDOMEN: Soft, nontender, bowel sounds present. EXTREMITIES: No edema. Pedal pulses present. NEUROLOGIC: Alert, awake. No focal deficits. LAB DATA AND TESTS: The patient had slightly elevated D-dimer 743. ABG showed pCO2 44, pO2 52. The patient had pH of 7.37. Lactic acid 1.3. Hemoglobin 16.4, hematocrit 47.8. Sodium 138, potassium 4.3, chloride 104, BUN 9, creatinine 0.7. Glucose 73, calcium 9.5, magnesium 1.9. AST 39, ALT 26, alkaline phosphatase 47. Pro-BNP 54.8. Total protein 7.5. Albumin 4.5. Chest x-ray negative. CT scan negative for any pulmonary embolism. ASSESSMENT AND PLAN: Chronic obstructive pulmonary disease with acute exacerbation. Started on IV steroid, inhalation of bronchodilator and IV antibiotics. Deep venous thrombosis prophylaxis protection. Oxygen as needed. The patient will be ambulated as advised. Once symptoms improve will be discharged home. Nicotine patch for significant nicotine addiction. The patient did show evidence of hypertension if blood pressure elevation persists will be treated while staying in the hospital. However seems to have stabilized since admission.
--- NOTE | 2017-10-11 14:25 | DS ---
DISCHARGE DIAGNOSIS: 1) CHRONIC OBSTRUCTIVE PULMONARY DISEASE ACUTE EXACERBATION. 2) HYPERTENSION. HOSPITAL COURSE: The patient is a 62 year-old individual who was reportedly hospitalized with chief complaint of chronic obstructive pulmonary disease exacerbation. The patient was treated with IV steroid inhalation, bronchodilator inhalation and steroids. He has done reasonably well and walked in the hallway without any trouble. At this time oxygen saturation is better so at this time the patient will be advised to be discharged home for outpatient follow up. The patient has done reasonably well and oxygen saturation is stable over 90. He will be discharged home with oral steroids and oral antibiotic with bronchodilator treatment and outpatient follow up with Dr. Vogt as advised.
== END 2017-10-07 12:30 | disposition home or self-care (01) ==
LOC: ED 20:40 → MED SURG 10-06 01:16
PROVIDERS: ADMIT General Practice; ATTEND General Practice
DX: J44.1 Chronic obstructive pulmonary disease with (acute) exacerbation (principal); Z72.0 Tobacco use
CPT/HCPCS: 36000; 36415; 36600; 71260; 80048; 80053; 82375; 82803; 83036; 83605; 83735; 83880; 84484; 85025; 85027; 85379; 85610; 87040; 93005; 93041; 93268; 94150; 94640; 94760; 96374; 99285; J0456; J0696; J1650; J2920; J2930; A9270-GY; G0378

== ENCOUNTER 2017-10-08 22:24 | Observation (INO) | payer OTHER ==
--- NOTE | 2017-10-08 23:20 | ERPHSYRPT ---
- History of Present Illness Time Seen by Provider: 10/08/17 23:01 Source: patient, EMS Exam Limitations: no limitations Patient Subjective Stated Complaint: pt has increasing shortness of breath since discharge yesterday. Triage Nursing Assessment: pt alert and oriented. answers questions approp. pt arriver per ambulance and transfer to stretcher with minimal assist. pt short of breath with minimal exertion. wheezes noted bilat. accessory muscle use ntoed. Physician History: The patient is a 62-year-old male brought in by ambulance from home where he was feeling very short of breath. He was hospitalized at [facility] for a COPD exacerbation and was discharged yesterday morning. He did not have any of his discharge prescriptions filled because he wants to talk to a doctor at the [facility] tomorrow before he fills these prescriptions. When he got out of the hospital yesterday morning he started to feel worse yesterday evening and almost returned to the ER yesterday evening. He denies cough or fever. He was given Solu-Medrol 125 mg by IV and a DuoNeb treatment by EMS in route to the ER. He has a past medical history of COPD and CAD. Timing/Duration: yesterday, gradual onset, worse Activities at Onset: activity Severity of Dyspnea-Max: severe Severity of Dyspnea-Current: moderate Possible Cause: frequent episodes, chronic episodes, smoke exposure Modifying Factors: Improves With: albuterol nebulizer Allergies/Adverse Reactions: No Known Drug Allergies Allergy (Verified 10/08/17 22:51) Home Medications: Ipratropium/Albuterol Sulfate [Combivent Inhaler] 14.7 gm IH Q6H PRN PRN [History] Albuterol 2.5 mg/0.5 ml [PROVENTIL Solution 2.5 MG/0.5 ML] 2.5 mg IH Q4H PRN PRN 10/06/17 [History] Budesonide/Formoterol Fumarate [Symbicort 80-4.5 Mcg Inhaler] 6.9 gm IH Q12H [History] Ibuprofen 200 mg [Motrin 200 mg] 800 mg PO TID PRN PRN 10/06/17 [History] Hx Tetanus, Diphtheria Vaccination/Date Given: No Hx Influenza Vaccination/Date Given: No Hx Pneumococcal Vaccination/Date Given: No Immunizations Up to Date: No - Review of Systems Constitutional: No Fever, No Chills Eyes: No Symptoms Ears, Nose, & Throat: No Symptoms Respiratory: Dyspnea, Wheezing Cardiac: No Chest Pain, No Edema, No Syncope Abdominal/Gastrointestinal: No Abdominal Pain, No Nausea, No Vomiting, No Diarrhea Genitourinary Symptoms: No Dysuria Musculoskeletal: No Back Pain, No Neck Pain Skin: No Rash Neurological: No Dizziness, No Focal Weakness, No Sensory Changes Psychological: No Symptoms Endocrine: No Symptoms Hematologic/Lymphatic: No Symptoms Immunological/Allergic: No Symptoms All Other Systems: Reviewed and Negative - Past Medical History Pertinent Past Medical History: Yes Neurological History: No Pertinent History ENT History: No Pertinent History Cardiac History: No Pertinent History Respiratory History: COPD, Other Endocrine Medical History: No Pertinent History Musculoskeletal History: Arthritis GI Medical History: No Pertinent History History: No Pertinent History Psycho-Social History: Other Male Reproductive Disorders: No Pertinent History Other Medical History: recalled, patient sleeping refuses to answer - Past Surgical History Past Surgical History: Yes - Social History Smoking Status: Heavy tobacco smoker How long have you smoked: years Exposure to second hand smoke: Yes Alcohol Use: Chronic (daily throughout the day including work time) Drug Use: none Patient Lives Alone: No - Nursing Vital Signs Nursing Vital Signs: Initial Vital Signs Temperature 98.1 F 10/08/17 22:36 Pulse Rate 79 10/08/17 22:36 Respiratory Rate 24 10/08/17 22:36 Blood Pressure 123/76 10/08/17 22:36 O2 Sat by Pulse Oximetry 92 L 10/08/17 22:36 Pain Scale Pain Intensity 0 - Physical Exam General Appearance: moderate distress Eye Exam: PERRL/EOMI Neck Exam: normal inspection, supple Respiratory Exam: prolonged expirations, wheezing Cardiovascular/Chest Exam: normal heart sounds, regular rate/rhythm Abdominal/Gastrointestinal Exam: soft, No tenderness, No distention, No mass Rectal Exam: not done Neurologic Exam: alert, 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, cooperative, 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 tested, sensation nml, No motor deficits Skin Exam: normal color, warm, No dry SpO2 Interpretation: hypoxic SpO2: 92 Oxygen Delivery: Nasal Cannula (3L) - Course EKG Interpreted by Me: RATE, Sinus Rhythm, NORMAL AXIS, NORMAL INTERVALS, NORMAL QRS, NORMAL ST-T, Other (No change compared to EKG 10/05/17.) - Radiology Exams Chest X-ray Interpretation: Interpreted by me, Negative Ordered Tests: Active Orders 24 hr Category Date Time Status Medical Malpractice Paralegal STAT Care 10/08/17 23:25 Active EKG-ER Only STAT Care 10/08/17 23:25 Active IV Insertion STAT Care 10/08/17 23:25 Active Oxygen-ED Only NASAL CANNULA 3 lpm Care 10/08/17 23:25 Active Pulse Oximetry (ED) STAT Care 10/08/17 23:25 Active CHEST 2 VIEWS (PA AND LAT) Stat Exams 10/08/17 23:43 Taken CBC W DIFF Stat Lab 10/08/17 23:45 Completed CMP Stat Lab 10/08/17 23:45 Completed Lactic Acid Stat Lab 10/08/17 23:42 Completed NT PRO BNP Stat Lab 10/08/17 23:45 Completed TROPONIN Q3H Lab 10/08/17 23:45 Completed TROPONIN Q3H Lab 10/09/17 02:30 Ordered TROPONIN Q3H Lab 10/09/17 05:30 Ordered TROPONIN Q3H Lab 10/09/17 08:30 Ordered TROPONIN Q3H Lab 10/09/17 11:30 Ordered Respiratory Nebulizer STAT RT 10/08/17 23:26 Completed Medication Summary Discontinued Medications Generic Name Dose Route Start Last Admin Trade Name Freq PRN Reason Stop Dose Admin Albuterol Sulfate 2.5 mg 10/08/17 23:25 10/08/17 23:50 Proventil 2.5 Mg/3 Ml Neb IH 10/08/17 23:26 2.5 mg STAT ONE Administration Albuterol Sulfate Confirm 10/08/17 23:44 Proventil 2.5 Mg/3 Ml Neb Administered 10/08/17 23:45 Dose 2.5 mg IH .STK-MED ONE Lab/Rad Data: Laboratory Result Diagrams 10/08/17 23:45 10/08/17 23:45 Laboratory Results 10/08/17 10/08/17 10/08/17 Range/Units 23:45 23:45 23:45 WBC 6.9 (4.0-10.5) K/mm3 RBC 4.78 (4.1-5.6) M/mm3 Hgb 15.8 (12.5-18.0) gm/dl Hct 46.8 (42-50) % MCV 97.9 (78-100) fl MCH 33.1 H (26-32) pg MCHC 33.8 (32-36) g/dl RDW 14.2 H (11.5-14.0) % Plt Count 168 (150-450) K/mm3 MPV 9.4 (6-9.5) fl Gran % 71.6 H (36.0-66.0) % Eos # (Auto) 0.07 (0-0.5) Absolute Lymphs (auto) 1.46 (1.0-4.6) Absolute Monos (auto) 0.41 (0.0-1.3) Lymphocytes % 21.3 L (24.0-44.0) % Monocytes % 6.0 (0.0-12.0) % Eosinophils % 1.0 (0.00-5.0) % Basophils % 0.1 (0.0-0.4) % Absolute Granulocytes 4.90 (1.4-6.9) Basophils # 0.01 (0-0.4) Sodium 140 (137-145) mmol/L Potassium 3.8 (3.5-5.1) mmol/L Chloride 106 (98-107) mmol/L Carbon Dioxide 21 L (22-30) mmol/L Anion Gap 16.9 H (5-15) MEQ/L BUN 11 (9-20) mg/dL Creatinine 0.78 (0.66-1.25) mg/dL Estimated GFR > 60.0 ML/MIN Glucose 92 (74-106) mg/dL Lactic Acid (0.4-2.0) Calcium 9.1 (8.4-10.2) mg/dL Total Bilirubin 0.40 (0.2-1.3) mg/dL AST 34 (17-59) U/L ALT 27 (0-50) U/L Alkaline Phosphatase 46 (38-126) U/L Troponin I < 0.012 (0.000-0.034) ng/mL NT-Pro-B Natriuret Pep 290 (0-900) pg/mL Serum Total Protein 7.2 (6.3-8.2) g/dL Albumin 4.4 (3.5-5.0) g/dL 10/08/17 Range/Units 23:42 WBC (4.0-10.5) K/mm3 RBC (4.1-5.6) M/mm3 Hgb (12.5-18.0) gm/dl Hct (42-50) % MCV (78-100) fl MCH (26-32) pg MCHC (32-36) g/dl RDW (11.5-14.0) % Plt Count (150-450) K/mm3 MPV (6-9.5) fl Gran % (36.0-66.0) % Eos # (Auto) (0-0.5) Absolute Lymphs (auto) (1.0-4.6) Absolute Monos (auto) (0.0-1.3) Lymphocytes % (24.0-44.0) % Monocytes % (0.0-12.0) % Eosinophils % (0.00-5.0) % Basophils % (0.0-0.4) % Absolute Granulocytes (1.4-6.9) Basophils # (0-0.4) Sodium (137-145) mmol/L Potassium (3.5-5.1) mmol/L Chloride (98-107) mmol/L Carbon Dioxide (22-30) mmol/L Anion Gap (5-15) MEQ/L BUN (9-20) mg/dL Creatinine (0.66-1.25) mg/dL Estimated GFR ML/MIN Glucose (74-106) mg/dL Lactic Acid 1.6 (0.4-2.0) Calcium (8.4-10.2) mg/dL Total Bilirubin (0.2-1.3) mg/dL AST (17-59) U/L ALT (0-50) U/L Alkaline Phosphatase (38-126) U/L Troponin I (0.000-0.034) ng/mL NT-Pro-B Natriuret Pep (0-900) pg/mL Serum Total Protein (6.3-8.2) g/dL Albumin (3.5-5.0) g/dL - Progress Progress: improved Air Movement: fair Blood Culture(s) Obtained: Yes Antibiotics given: Yes Discussed with : Mariza Will see patient in: hospital (observation) Counseled pt/family regarding: lab results, diagnosis, rad results - Departure Time of Disposition: 00:48 Departure Disposition: Observation (per Dr Mode Triplett) Clinical Impression: COPD exacerbation Condition: Stable Critical Care Time: No Referrals: KRISTY JIMENEZ MD [Primary Care Provider] - Instructions: Chronic Obstructive Pulmonary Disease
[2017-10-08] MEDS ORDERED: PROVENTIL 2.5 MG/3 ML NEB IH ONE ×2 (23:25→23:44)
[2017-10-08 23:51] LABS: BASOPHIL % 0.1 % (0.0-0.4); Basophil (Absolute #) 0.01 (0-0.4); Eosinophil (Absolute #) 0.07 (0-0.5); Granulocytes % 71.6 % (36.0-66.0); Hematocrit 46.8 % (42-50); Hemoglobin 15.8 gm/dl (12.5-18.0); Lymphocyte (Absolute #) 1.46 (1.0-4.6); Lymphocytes % 21.3 % (24.0-44.0); Mean Cell Volume 97.9 fl (78-100); Mean Corpuscular Hemoglobin 33.1 pg (26-32); Mean Corpuscular Hgb Concent. 33.8 g/dl (32-36); Mean Platelet Volume 9.4 fl (6-9.5); Monocyte (Absolute #) 0.41 (0.0-1.3); Platelet Count 168 K/mm3 (150-450); Red Blood Count 4.78 M/mm3 (4.1-5.6); Red Cell Distribution Width 14.2 % (11.5-14.0); White Blood Count 6.9 K/mm3 (4.0-10.5)
[2017-10-09 00:16] LABS: ALBUMIN 4.4 g/dL (3.5-5.0); ALKALINE PHOSPHATASE 46 U/L (38-126); ANION GAP 16.9 MEQ/L (5-15); BLOOD UREA NITROGEN 11 mg/dL (9-20); CHLORIDE 106 mmol/L (98-107); Calcium 9.1 mg/dL (8.4-10.2); Carbon Dioxide 21 mmol/L (22-30); Creatinine 1 0.78 mg/dL (0.66-1.25); Glucose 92 mg/dL (74-106); Potassium 3.8 mmol/L (3.5-5.1); SGOT/AST 34 U/L (17-59); SGPT/ALT 27 U/L (0-50); SODIUM 140 mmol/L (137-145); Total Protein 7.2 g/dL (6.3-8.2)
[2017-10-09 00:25] LABS: NT PRO BNP 290 pg/mL (0-900)
[2017-10-09] MEDS: DUONEB 0.5-3 MG/3 ml Neb IH SCH ×4 (02:54→14:57)
[2017-10-09] MEDS ORDERED: PROVENTIL 2.5 MG/3 ML NEB IH SCH (03:00)
[2017-10-09] MEDS: solu-MEDROL 125 MG IV SCH ×3 (06:52→18:34)
[2017-10-09] MEDS ORDERED: Advair Hfa 115/21 Common canister IH SCH (07:00)
--- NOTE | 2017-10-09 08:39 | XRAY ---
Indication: Short of breath. Comparison: May 26, 2017. PA/lateral chest remains hyperinflated and clear with a few incidental calcified granulomas. Heart and mediastinal structures within normal limits. Bony thorax intact. Impression: Nonacute hyperinflated chest with chronic feature.
[2017-10-09] MEDS ORDERED: ROCEPHIN 1 Gm-D5w 50 ml Bag** 1 G/50 ML IVPB IV SCH (10:00)
[2017-10-09] MEDS ORDERED: PROVENTIL Solution 2.5 MG/0.5 ML IH PRN (12:52)
--- NOTE | 2017-10-09 12:56 | PCM.SSS ---
History of Present Illness - Chief Complaint Chief Complaint: worsening of shortness of breath History of Present Illness: Mr.MCKEE GREGORIO is a 62 year old male brought in by ambulance from home where he was feeling very short of breath. He was hospitalized at [facility] for a COPD exacerbation and was discharged yesterday morning. He did not have any of his discharge prescriptions filled because he wants to talk to a doctor at the [place] tomorrow before he fills these prescriptions. When he got out of the hospital yesterday morning he started to feel worse yesterday evening and almost returned to the ER yesterday evening. He denies cough or fever. He has a past medical history of COPD and CAD.. - Review of Systems Constitutional: No Fever, No Chills Eyes: No Symptoms Ears, Nose, & Throat: No Symptoms Respiratory: Cough, Short Of Breath Cardiac: No Chest Pain, No Edema, No Syncope Abdominal/Gastrointestinal: No Abdominal Pain, No Nausea, No Vomiting, No Diarrhea Genitourinary Symptoms: No Dysuria Musculoskeletal: No Back Pain, No Neck Pain Skin: No Rash Neurological: No Dizziness, No Focal Weakness, No Sensory Changes Psychological: No Symptoms Endocrine: No Symptoms Hematologic/Lymphatic: No Symptoms Immunological/Allergic: No Symptoms Medications & Allergies Home Medications: Home Medication List Ipratropium/Albuterol Sulfate [Combivent Inhaler] 14.7 gm IH Q6H PRN PRN [History Confirmed 10/08/17] Albuterol 2.5 mg/0.5 ml [PROVENTIL Solution 2.5 MG/0.5 ML] 2.5 mg IH Q4H PRN PRN 10/06/17 [History Confirmed 10/09/17] Budesonide/Formoterol Fumarate [Symbicort 80-4.5 Mcg Inhaler] 6.9 gm IH Q12H [History Confirmed 10/09/17] Ibuprofen 200 mg [Motrin 200 mg] 800 mg PO TID PRN PRN 10/06/17 [History Confirmed 10/09/17] Methylprednisolone Packet [Medrol Dosepack] 4 mg PO UD #30 packet [Rx] Allergies/Adverse Reactions: Allergies Allergy/AdvReac Type Severity Reaction Status Date / Time No Known Drug Allergies Allergy Verified 10/08/17 22:51 - Past Medical History Past Medical History: Yes Neurological History: No Pertinent History ENT History: No Pertinent History Cardiac History: No Pertinent History Respiratory History: COPD, Other Endocrine Medical History: No Pertinent History Musculoskelatal History: Arthritis GI Medical History: No Pertinent History History: No Pertinent History Pyscho-Social History: Other Male Reproductive Disorders: No Pertinent History Comment: . - Past Surgical History Past Surgical History: No Neuro Surgical History: No Pertinent History Cardiac History: No Pertinent History Respiratory Surgery: No Pertinent History GI Surgical History: No Pertinent History Genitourinary Surgical Hx: No Pertinent History Musculskeletal Surgical Hx: No Pertinent History Male Surgical History: No Pertinent History - Social History Smoking Status: Heavy tobacco smoker How long have you smoked: years Exposure to second hand smoke: Yes Alcohol: Daily Drug Use: none - Physical Exam Vital Signs: Vital Signs - 24 hr Temp Pulse Resp BP Pulse Ox 10/09/17 12:00 18 10/09/17 11:00 87 18 93 L 10/09/17 08:00 98.1 F 87 18 120/75 93 L 10/09/17 06:56 81 18 92 L 10/09/17 04:00 97.9 F 79 24 118/70 86 L 10/09/17 02:54 79 24 86 L 10/09/17 02:53 97.9 F 79 24 118/70 86 L 10/09/17 01:05 87 24 113/77 92 L 10/09/17 00:56 92 L 10/09/17 00:45 82 24 121/80 91 L 10/08/17 23:50 84 17 90 L 10/08/17 23:31 92 L 10/08/17 23:26 72 22 114/65 92 L 10/08/17 22:36 98.1 F 79 24 123/76 92 L Oxygen-Last 24 hours O2 Percentage 3 Liters = 32% O2 Percentage 3 Liters = 32% O2 Percentage 4 Liters = 36% O2 Percentage 4 Liters = 36% O2 Percentage 4 Liters = 36% O2 Percentage 4 Liters = 36% General Appearance: no apparent distress, alert Neurologic Exam: alert, 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, cooperative, normal mood/affect, nml cerebellar function, nml station & gait, sensation nml, No motor deficits Eye Exam: PERRL/EOMI, eyes nml inspection Ears, Nose, Throat Exam: normal ENT inspection, TMs normal, pharynx normal, moist mucous membranes Neck Exam: normal inspection, non-tender, supple, full range of motion Respiratory Exam: diminished breath sounds, prolonged expirations, rhonchi, wheezing, No respiratory distress Cardiovascular Exam: regular rate/rhythm, normal heart sounds, normal peripheral pulses Gastrointestinal/Abdomen Exam: soft, normal bowel sounds, No tenderness, No mass Back Exam: normal inspection, normal range of motion, No CVA tenderness, No vertebral tenderness Extremity Exam: normal inspection, normal range of motion, pelvis stable Skin Exam: normal color, warm, dry, No rash Lymphatic Exam: No adenopathy Results - Labs Lab/Micro Results: Lab Results-Last 24 Hours 10/09/17 10/09/17 10/09/17 Range/Units 02:45 05:30 08:20 Troponin I < 0.012 < 0.012 < 0.012 (0.000-0.034) ng/mL 10/09/17 Range/Units 11:15 Troponin I < 0.012 (0.000-0.034) ng/mL - Other Procedures and Tests Respiratory Therapy 10/09/17 03:00 Respiratory Nebulizer Q4H 10/09/17 07:00 Respiratory MDI BID 10/09/17 12:43 Qualify for Home Oxygen TODAY Assessment/Plan (1) COPD with hypoxia Current Visit: Yes Status: Acute Assessment & Plan: Chief Complaint Diagnosis COPD Exac. Allergies Allergy/AdvReac Type Severity Reaction Status Date / Time No Known Drug Allergies Allergy Verified 10/08/17 22:51 Vital Signs (Last 24 hours) Temp Pulse Resp BP Pulse Ox 10/09/17 12:00 18 10/09/17 11:00 87 18 93 L 10/09/17 08:00 98.1 F 87 18 120/75 93 L 10/09/17 06:56 81 18 92 L 10/09/17 04:00 97.9 F 79 24 118/70 86 L 10/09/17 02:54 79 24 86 L 10/09/17 02:53 97.9 F 79 24 118/70 86 L 10/09/17 01:05 87 24 113/77 92 L 10/09/17 00:56 92 L 10/09/17 00:45 82 24 121/80 91 L 10/08/17 23:50 84 17 90 L 10/08/17 23:31 92 L 10/08/17 23:26 72 22 114/65 92 L 10/08/17 22:36 98.1 F 79 24 123/76 92 L Current Medications Generic Name Dose Route Start Last Admin Trade Name Erin PRN Reason Stop Dose Admin Albuterol Sulfate 2 puff 10/09/17 13:00 Proventil Common Canister IH 11/08/17 12:59 Q4HPRN ALYSSA Albuterol/Ipratropium 3 ml 10/09/17 03:00 10/09/17 11:24 Duoneb 0.5-3 Mg/3 Ml Neb IH 11/08/17 02:59 3 ml Q4HRT ALYSSA Administration Ceftriaxone Sodium/Dextrose 1 g in 50 mls @ 100 mls/hr 10/09/17 10:00 09:52 Rocephin 1 Gm-D5w 50 Ml Bag IV 11/08/17 09:59 100 mls/hr Q24H10 ALYSSA Administration Ibuprofen 800 mg 10/09/17 12:52 Motrin 200 Mg PO 11/08/17 12:51 TID PRN PRN PAIN Methylprednisolone Sodium Succinate 80 mg 10/09/17 06:00 10/09/17 11:18 Solu-Medrol 125 Mg IV 11/08/17 05:59 80 mg Q6HT ALYSSA Administration Fluticasone/Salmeterol 2 puff 10/09/17 07:00 10/09/17 06:53 Advair Hfa 115/21 Common Canister* IH 11/08/17 06:59 2 puff BIDRT ALYSSA Administration Discontinued Medications Generic Name Dose Route Start Last Admin Trade Name Erin PRN Reason Stop Dose Admin Albuterol Sulfate 2.5 mg 10/08/17 23:25 10/08/17 23:50 Proventil 2.5 Mg/3 Ml Neb IH 10/08/17 23:26 2.5 mg STAT ONE Administration Albuterol Sulfate Confirm 10/08/17 23:44 Proventil 2.5 Mg/3 Ml Neb Administered 10/08/17 23:45 Dose 2.5 mg IH .STK-MED ONE Albuterol Sulfate 2.5 mg 10/09/17 03:00 Proventil 2.5 Mg/3 Ml Neb IH 11/08/17 02:59 Q4HRT ALYSSA Intake & Output (Last 24 hours) 10/07/17 10/08/17 10/09/17 10/10/17 11:59 11:59 11:59 11:59 Intake Total 460 Balance 460 Weight 65.9 kg Laboratory Results (Last 24 hours) 10/09/17 10/09/17 10/09/17 11:15 08:20 05:30 WBC RBC Hgb Hct MCV MCH MCHC RDW Plt Count MPV Gran % Eos # (Auto) Absolute Lymphs (auto) Absolute Monos (auto) Lymphocytes % Monocytes % Eosinophils % Basophils % Absolute Granulocytes Basophils # Sodium Potassium Chloride Carbon Dioxide Anion Gap BUN Creatinine Estimated GFR Glucose Lactic Acid Calcium Total Bilirubin AST ALT Alkaline Phosphatase Troponin I < 0.012 < 0.012 < 0.012 NT-Pro-B Natriuret Pep Serum Total Protein Albumin 10/09/17 10/08/17 10/08/17 02:45 23:45 23:45 WBC RBC Hgb Hct MCV MCH MCHC RDW Plt Count MPV Gran % Eos # (Auto) Absolute Lymphs (auto) Absolute Monos (auto) Lymphocytes % Monocytes % Eosinophils % Basophils % Absolute Granulocytes Basophils # Sodium 140 Potassium 3.8 Chloride 106 Carbon Dioxide 21 L Anion Gap 16.9 H BUN 11 Creatinine 0.78 Estimated GFR > 60.0 Glucose 92 Lactic Acid Calcium 9.1 Total Bilirubin 0.40 AST 34 ALT 27 Alkaline Phosphatase 46 Troponin I < 0.012 < 0.012 NT-Pro-B Natriuret Pep 290 Serum Total Protein 7.2 Albumin 4.4 10/08/17 10/08/17 23:45 23:42 WBC 6.9 RBC 4.78 Hgb 15.8 Hct 46.8 MCV 97.9 MCH 33.1 H MCHC 33.8 RDW 14.2 H Plt Count 168 MPV 9.4 Gran % 71.6 H Eos # (Auto) 0.07 Absolute Lymphs (auto) 1.46 Absolute Monos (auto) 0.41 Lymphocytes % 21.3 L Monocytes % 6.0 Eosinophils % 1.0 Basophils % 0.1 Absolute Granulocytes 4.90 Basophils # 0.01 Sodium Potassium Chloride Carbon Dioxide Anion Gap BUN Creatinine Estimated GFR Glucose Lactic Acid 1.6 Calcium Total Bilirubin AST ALT Alkaline Phosphatase Troponin I NT-Pro-B Natriuret Pep Serum Total Protein Albumin Orders (Last 24 hours) Category Date Time Status Up Ad Kalyn ROUTINE Activity 10/09/17 01:48 Active School Inspector STAT Care 10/08/17 23:25 Active Code Status Order ROUTINE Care 10/09/17 01:48 Active EKG-ER Only STAT Care 10/08/17 23:25 Completed IV Care Q6H Care 10/09/17 01:48 Active IV Insertion STAT Care 10/08/17 23:25 Active Oxygen-ED Only NASAL CANNULA 3 lpm Care 10/08/17 23:[address] in Observation ROUTINE Care 10/09/17 01:48 Active Pulse Oximetry (ED) STAT Care 10/08/17 23:25 Active Mj Palmer, Apply ROUTINE Care 10/09/17 01:48 Active Telemetry ROUTINE Care 10/09/17 01:48 Active Weight,Daily 0600 Care 10/09/17 01:48 Active Gum Rolling Machine Tender/Discharge Plan Cons 10/09/17 02:52 Active Gum Rolling Machine Tender/Discharge Plan Cons 10/09/17 03:14 Active Regular Diet Diet 10/09/17 Breakfast Active CHEST 2 VIEWS (PA AND LAT) Stat Exams 10/08/17 23:43 Completed CBC W DIFF Stat Lab 10/08/17 23:45 Completed CMP Stat Lab 10/08/17 23:45 Completed Lactic Acid Stat Lab 10/08/17 23:42 Completed NT PRO BNP Stat Lab 10/08/17 23:45 Completed TROPONIN Q3H Lab 10/08/17 23:45 Completed TROPONIN Q3H Lab 10/09/17 02:45 Completed TROPONIN Q3H Lab 10/09/17 05:30 Completed TROPONIN Q3H Lab 10/09/17 08:20 Completed TROPONIN Q3H Lab 10/09/17 11:15 Completed Albuterol 2.5 mg/3 ml Neb [Proventil 2.5 mg/3 ml Neb Med 10/08/17 23:44 Discontinued ] 2.5 mg IH .STK-MED ONE Albuterol 2.5 mg/3 ml Neb [Proventil 2.5 mg/3 ml Neb Med 10/09/17 03:00 Discontinued ] 2.5 mg IH Q4HRT Albuterol 2.5 mg/3 ml Neb [Proventil 2.5 mg/3 ml Neb Med 10/08/17 23:25 Discontinued ] 2.5 mg IH STAT ONE Albuterol Common Canister [Proventil Common Canister Med 10/09/17 13:00 Ordered ] 2 puff IH Q4HPRN Albuterol/Ipratropium 3ml Neb* [DUONEB 0.5-3 MG/3 ml Med 10/09/17 03:00 Active Neb] 3 ml IH Q4HRT Ceftriaxone 1 GM/50 ML PREMIX* [ROCEPHIN 1 Gm-D5w 50 ml Med 10/09/17 10:00 Active Bag] 1 g in 50 ml IV Q24H10 Fluticasone/Salmeterol 115/21 [Advair Hfa 115/21 Common Med 10/09/17 07:00 Active canister*] 2 puff IH BIDRT Ibuprofen 200 mg [Motrin 200 mg] Med 10/09/17 12:52 Ordered 800 mg PO TID PRN PRN Methylprednis Sod Succ 125 mg* [solu-MEDROL 125 MG] Med 10/09/17 06:00 Active 80 mg IV Q6HT Oxygen NASAL CANNULA 3 lpm RT 10/09/17 01:48 Active Qualify for Home Oxygen TODAY RT 10/09/17 12:43 Active Respiratory MDI BID RT 10/09/17 07:00 Active Respiratory Nebulizer Q4H RT 10/09/17 03:00 Active Respiratory Nebulizer STAT RT 10/08/17 23:26 Completed Respiratory Therapy Consult ROUTINE RT 10/09/17 01:48 Completed Transfer Order Routine Transfer 10/09/17 Completed Code(s): J44.9 - CHRONIC OBSTRUCTIVE PULMONARY DISEASE, UNSPECIFIED; R09.02 - HYPOXEMIA (2) COPD exacerbation Current Visit: Yes Status: Acute Code(s): J44.1 - CHRONIC OBSTRUCTIVE PULMONARY DISEASE W (ACUTE) EXACERBATION Hospital Summary - Hospital Course Hospital Course: Last Vital Signs Temp 98.1 F 10/09/17 08:00 Pulse 87 10/09/17 11:00 Resp 18 10/09/17 12:00 BP 120/75 10/09/17 08:00 Pulse Ox 93 L 10/09/17 11:00 Allergies No Known Drug Allergies Allergy (Verified 10/08/17 22:51) Active Medications Albuterol Sulfate (Proventil Common Canister) 2 puff IH Q4HPRN [facility] Stop: 11/08/17 12:59 Albuterol/Ipratropium (Duoneb 0.5-3 Mg/3 Ml Neb) 3 ml IH Q4HRT [facility] Stop: 11/08/17 02:59 Last Admin: 10/09/17 11:24 Dose: 3 ml Ceftriaxone Sodium/Dextrose (Rocephin 1 Gm-D5w 50 Ml Bag) 1 g in 50 mls @ 100 mls/hr IV Q24H10 [facility] Stop: 11/08/17 09:59 Last Admin: 10/09/17 09:52 Dose: 100 mls/hr Ibuprofen (Motrin 200 Mg) 800 mg PO TID PRN PRN PRN Reason: PAIN Stop: 11/08/17 12:51 Methylprednisolone Sodium Succinate (Solu-Medrol 125 Mg) 80 mg IV Q6HT [facility] Stop: 11/08/17 05:59 Last Admin: 10/09/17 11:18 Dose: 80 mg Fluticasone/Salmeterol (Advair Hfa 115/21 Common Canister*) 2 puff IH BIDRT [facility] Stop: 11/08/17 06:59 Last Admin: 10/09/17 06:53 Dose: 2 puff Intake & Output 10/09/17 10/10/17 11:59 11:59 Intake Total 460 Balance 460 Weight 65.9 kg Orders 10/09/17 02:52 Gum Rolling Machine Tender/Discharge Plan 10/09/17 03:14 Gum Rolling Machine Tender/Discharge Plan 10/09/17 07:00 Fluticasone/Salmeterol 115/21 [Advair Hfa 115/21 Common canister*] 2 puff IH BIDRT Respiratory MDI BID 10/09/17 12:43 Qualify for Home Oxygen TODAY 10/09/17 12:52 Ibuprofen 200 mg [Motrin 200 mg] 800 mg PO TID PRN PRN 10/09/17 13:00 Albuterol Common Canister [Proventil Common Canister] 2 puff IH Q4HPRN 10/09/17 Breakfast Regular Diet Lab Tests 10/08/17 10/08/17 10/08/17 23:42 23:45 23:45 WBC 6.9 RBC 4.78 Hgb 15.8 Hct 46.8 MCV 97.9 MCH 33.1 H MCHC 33.8 RDW 14.2 H Plt Count 168 MPV 9.4 Gran % 71.6 H Eos # (Auto) 0.07 Absolute Lymphs (auto) 1.46 Absolute Monos (auto) 0.41 Lymphocytes % 21.3 L Monocytes % 6.0 Eosinophils % 1.0 Basophils % 0.1 Absolute Granulocytes 4.90 Basophils # 0.01 Sodium 140 Potassium 3.8 Chloride 106 Carbon Dioxide 21 L Anion Gap 16.9 H BUN 11 Creatinine 0.78 Estimated GFR > 60.0 Glucose 92 Lactic Acid 1.6 Calcium 9.1 Total Bilirubin 0.40 AST 34 ALT 27 Alkaline Phosphatase 46 Troponin I NT-Pro-B Natriuret Pep 290 Serum Total Protein 7.2 Albumin 4.4 10/08/17 10/09/17 10/09/17 23:45 02:45 05:30 WBC RBC Hgb Hct MCV MCH MCHC RDW Plt Count MPV Gran % Eos # (Auto) Absolute Lymphs (auto) Absolute Monos (auto) Lymphocytes % Monocytes % Eosinophils % Basophils % Absolute Granulocytes Basophils # Sodium Potassium Chloride Carbon Dioxide Anion Gap BUN Creatinine Estimated GFR Glucose Lactic Acid Calcium Total Bilirubin AST ALT Alkaline Phosphatase Troponin I < 0.012 < 0.012 < 0.012 NT-Pro-B Natriuret Pep Serum Total Protein Albumin 10/09/17 10/09/17 08:20 11:15 WBC RBC Hgb Hct MCV MCH MCHC RDW Plt Count MPV Gran % Eos # (Auto) Absolute Lymphs (auto) Absolute Monos (auto) Lymphocytes % Monocytes % Eosinophils % Basophils % Absolute Granulocytes Basophils # Sodium Potassium Chloride Carbon Dioxide Anion Gap BUN Creatinine Estimated GFR Glucose Lactic Acid Calcium Total Bilirubin AST ALT Alkaline Phosphatase Troponin I < 0.012 < 0.012 NT-Pro-B Natriuret Pep Serum Total Protein Albumin - Vitals & Intake/Output Vital Signs: Vital Signs Temperature 98.1 F 10/09/17 08:00 Pulse Rate 87 10/09/17 11:00 Respiratory Rate 18 10/09/17 12:00 Blood Pressure 120/75 10/09/17 08:00 O2 Sat by Pulse Oximetry 93 L 10/09/17 11:00 Oxygen-Last Documented O2 Percentage 3 Liters = 32% Intake & Output: Intake & Output 10/07/17 10/08/17 10/09/17 10/10/17 11:59 11:59 11:59 11:59 Intake Total 460 Balance 460 Weight 65.9 kg - Lab Result Diagrams: 10/08/17 23:45 10/08/17 23:45 Lab Results-Last 24 Hrs: Lab Results-Last 24 Hours 10/09/17 10/09/17 10/09/17 Range/Units 02:45 05:30 08:20 Troponin I < 0.012 < 0.012 < 0.012 (0.000-0.034) ng/mL 10/09/17 Range/Units 11:15 Troponin I < 0.012 (0.000-0.034) ng/mL - Procedures and Test Procedures and Tests throughout Hospitalization: Therapy Orders & Screens 10/09/17 03:00 Respiratory Nebulizer Q4H Comment: DUONEB Q4 HOURS Diagnosis: Shortness of Breath 10/09/17 07:00 Respiratory MDI BID Comment: ADV 115/21 2 PUFFS BID Diagnosis: Shortness of Breath 10/09/17 12:43 Qualify for Home Oxygen TODAY Comment: Diagnosis: COPD Exac. - Discharge Discharge Date: 10/09/17 Disposition: Home, Self-Care Condition: Stable Prescriptions: New Methylprednisolone Packet [Medrol Dosepack] 4 mg PO UD #30 packet Continue Ipratropium/Albuterol Sulfate [Combivent Inhaler] 14.7 gm IH Q6H PRN PRN PRN Reason: shortness of breath/wheezing Albuterol 2.5 mg/0.5 ml [PROVENTIL Solution 2.5 MG/0.5 ML] 2.5 mg IH Q4H PRN PRN PRN Reason: Shortness Of Breath/Wheezing Ibuprofen 200 mg [Motrin 200 mg] 800 mg PO TID PRN PRN PRN Reason: Pain Budesonide/Formoterol Fumarate [Symbicort 80-4.5 Mcg Inhaler] 6.9 gm IH Q12H Follow up with: KRISTY JIMENEZ MD [Primary Care Provider] - 1 Week
[2017-10-09] MEDS ORDERED: MOTRIN 400 MG PO PRN (13:00)
[2017-10-09] MEDS ORDERED: PROVENTIL COMMON CANISTER IH SCH (13:00)
[2017-10-09] MEDS ORDERED: PROVENTIL 2.5 MG/3 ML NEB IH PRN (13:04)
[2017-10-09 16:27] VITALS: BP 117/62; PULSE 84; O2SAT 91
== END 2017-10-09 18:50 | disposition home or self-care (01) ==
LOC: ED 22:24 → MED SURG 10-09 01:44
PROVIDERS: ADMIT General Practice; ATTEND General Practice
DX: J44.1 Chronic obstructive pulmonary disease with (acute) exacerbation (principal); R09.02 Hypoxemia; I25.10 Atherosclerotic heart disease of native coronary artery without angina pectoris; M19.90 Unspecified osteoarthritis, unspecified site; Z72.0 Tobacco use; Z79.899 Other long term (current) drug therapy
CPT/HCPCS: 36000; 36415; 71046; 80053; 83605; 83880; 84484; 85025; 93005; 93041; 94150; 94640; 94760; 99285; G0378; J7609; J0696; J2930; A9270-GY

== ENCOUNTER 2017-12-06 17:06 | Observation (INO) | payer OTHER ==
[2017-12-06] MEDS ORDERED: DUONEB 0.5-3 MG/3 ml Neb IH ONE ×2 (17:12→17:14)
[2017-12-06] MEDS ORDERED: MORPHINE SULFATE 4 MG INJ IV ONE ×2 (17:13→19:58)
[2017-12-06] MEDS ORDERED: Zofran 4 MG/2 ML VIAL IV ONE (17:13)
[2017-12-06] MEDS ORDERED: solu-MEDROL 125 MG IV ONE (17:14)
[2017-12-06] MEDS ORDERED: Sodium Chloride 0.9% 1000 ML 1,000 ML IV SCH ×2 (17:15→22:21)
[2017-12-06] MEDS ORDERED: MORPHINE SULFATE 4 MG INJ ONE ×2 (17:15→20:02)
[2017-12-06] MEDS ORDERED: Sodium Chloride 0.9% 1000 ML 1,000 ML ONE (17:18)
[2017-12-06] MEDS ORDERED: Zofran 4 MG/2 ML VIAL ONE (17:18)
[2017-12-06] MEDS ORDERED: solu-MEDROL 125 MG ONE (17:18)
--- NOTE | 2017-12-06 17:21 | ERPHSYRPT ---
- History of Present Illness Time Seen by Provider: 12/06/17 17:16 Source: patient Exam Limitations: no limitations Physician History: 62-year-old white male with history of COPD, arthritis, anxiety arrives with complaint of shortness of breath symptoms since this morning patient states he has suddenly felt a pop in his left lower thoracic region. Thereafter he began excessively short of breath he states he is having pain with deep breathing. Patient denies any anterior chest pain he does have pain in his left posterior thoracic region with breathing. Past medical history includes COPD, arthritis, anxiety. Past surgical history is negative. Social history includes 2 packs per day tobacco use. Patient also states he drinks a 12 pack of beer a day. Timing/Duration: today Activities at Onset: none Severity of Dyspnea-Max: moderate Severity of Dyspnea-Current: moderate Possible Cause: no prior episodes Modifying Factors: Improves With: nothing Associated Symptoms: constant, cough, chest pain/discomfort (pain posterior thoracic region with breathing), wheezing, painful breathing, No intermittent, No anxiety, No edema, No fever, No insomnia, No loss of appetite, No lightheadedness, No weakness, No ankle swelling, No chills, No hemoptysis, No calf pain, No dizziness, No heaviness, No heart racing, No lightheadedness, No leg swelling, No muscle spasms feet International travel in last 2 weeks: No Allergies/Adverse Reactions: No Known Drug Allergies Allergy (Verified 12/06/17 17:16) Home Medications: Ipratropium/Albuterol Sulfate [Combivent Inhaler] 14.7 gm IH Q6H PRN PRN [History] Albuterol 2.5 mg/0.5 ml [PROVENTIL Solution 2.5 MG/0.5 ML] 2.5 mg IH Q4H PRN PRN 10/06/17 [History] Budesonide/Formoterol Fumarate [Symbicort 80-4.5 Mcg Inhaler] 6.9 gm IH Q12H [History] Ibuprofen 200 mg [Motrin 200 mg] 800 mg PO TID PRN PRN 10/06/17 [History] Hx Tetanus, Diphtheria Vaccination/Date Given: No Hx Influenza Vaccination/Date Given: No Hx Pneumococcal Vaccination/Date Given: No - Review of Systems Constitutional: No Fever, No Chills Eyes: No Symptoms Ears, Nose, & Throat: No Symptoms Respiratory: Cough, Dyspnea, Wheezing, Other (pain posterior thoracic region with breathing) Cardiac: No Chest Pain, No Edema, No Syncope Abdominal/Gastrointestinal: No Abdominal Pain, No Nausea, No Vomiting, No Diarrhea Genitourinary Symptoms: No Dysuria Musculoskeletal: No Back Pain, No Neck Pain Skin: No Rash Neurological: No Dizziness, No Focal Weakness, No Sensory Changes Psychological: No Symptoms Endocrine: No Symptoms All Other Systems: Reviewed and Negative - Past Medical History Pertinent Past Medical History: Yes Neurological History: No Pertinent History ENT History: No Pertinent History Cardiac History: No Pertinent History Respiratory History: COPD, Other Endocrine Medical History: No Pertinent History Musculoskeletal History: Arthritis GI Medical History: No Pertinent History History: No Pertinent History Psycho-Social History: Other Male Reproductive Disorders: No Pertinent History Other Medical History: . - Past Surgical History Past Surgical History: No Neuro Surgical History: No Pertinent History Cardiac: No Pertinent History Respiratory: No Pertinent History Gastrointestinal: No Pertinent History Genitourinary: No Pertinent History Musculoskeletal: No Pertinent History Male Surgical History: No Pertinent History - Social History Smoking Status: Heavy tobacco smoker How long have you smoked: years Exposure to second hand smoke: Yes Alcohol Use: Chronic (daily throughout the day including work time) Drug Use: none Patient Lives Alone: No - Nursing Vital Signs Nursing Vital Signs: Initial Vital Signs Pulse Rate 102 H 12/06/17 17:19 Respiratory Rate 26 H 12/06/17 17:19 O2 Sat by Pulse Oximetry 93 L 12/06/17 17:19 Pain Scale Pain Intensity 4 - Physical Exam General Appearance: moderate distress Eye Exam: PERRL/EOMI Ears, Nose, Throat Exam: hearing grossly normal, normal ENT inspection, normal pharynx, No abnormal TM (R), No abnormal TM (L) Neck Exam: normal inspection, supple Respiratory Exam: rhonchi, wheezing, other (pain with breathing left posterior thorasic ) Cardiovascular/Chest Exam: normal peripheral pulses, tachycardia Abdominal/Gastrointestinal Exam: soft, No tenderness, No distention, No mass Extremity Exam: non-tender (I in a venous gases), normal range of motion, normal inspection, no calf tenderness, no pedal edema Neurologic Exam: alert, 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, cooperative, health outcomes liaison II-XII nml as tested, sensation nml, No motor deficits SpO2 Interpretation: normal - Course Nursing assessment & vital signs reviewed: Yes EKG Interpreted by Me: RATE (98 bpm), Sinus Rhythm, NORMAL AXIS, Other (EKG: Sinus rhythm 98 bpm moderate amount of artifact, normal axis no acute ST or T wave changes) - Radiology Exams Chest X-ray Interpretation: Interpreted by me ( chest x-ray: COPD, no pneumothorax, no infiltrates) Ordered Tests: Active Orders 24 hr Category Date Time Status [place] STAT Care 12/06/17 17:14 Active EKG-ER Only STAT Care 12/06/17 17:13 Active IV Insertion STAT Care 12/06/17 17:13 Active Oxygen-ED Only NASAL CANNULA 2 lpm Care 12/06/17 17:14 Active CHEST 1 VIEW (PORTABLE) Stat Exams 12/06/17 17:30 Taken CHEST WITH CONTRAST [CT] Stat Exams 12/06/17 18:26 Taken BLOOD CULTURE Stat Lab 12/06/17 17:40 Received CBC W DIFF Stat Lab 12/06/17 17:40 Completed CMP Stat Lab 12/06/17 17:10 Completed CULTURE,SPUTUM Stat Lab 12/06/17 17:56 Uncollected D-DIMER QUANTITATION Stat Lab 12/06/17 17:10 Completed Lactic Acid Stat Lab 12/06/17 17:27 Completed NT PRO BNP Stat Lab 12/06/17 17:10 Completed PROTIME WITH INR Stat Lab 12/06/17 17:10 Completed PTT Stat Lab 12/06/17 17:10 Completed TROPONIN Q3H Lab 12/06/17 17:10 Completed TROPONIN Q3H Lab 12/07/17 02:15 Ordered TROPONIN Q3H Lab 12/07/17 05:15 Ordered VENOUS BLOOD GAS Stat Lab 12/06/17 17:27 Completed Respiratory Nebulizer STAT RT 12/06/17 17:15 Completed Respiratory Nebulizer STAT RT 12/06/17 20:02 Active Transfer Order Routine Transfer 12/06/17 Ordered Medication Summary Generic Name Dose Route Start Last Admin Trade Name Freq PRN Reason Stop Dose Admin Sodium Chloride 1,000 mls @ 50 mls/hr 12/06/17 17:15 12/06/17 17:26 Sodium Chloride 0.9% 1000 Ml IV 01/05/18 17:14 50 mls/hr .Q20H ALYSSA Administration Discontinued Medications Generic Name Dose Route Start Last Admin Trade Name Freq PRN Reason Stop Dose Admin Albuterol Sulfate 2.5 mg 12/06/17 20:01 12/06/17 20:06 Proventil 2.5 Mg/3 Ml Neb IH 12/06/17 20:02 2.5 mg STAT ONE Administration Albuterol/Ipratropium Confirm 12/06/17 17:12 Duoneb 0.5-3 Mg/3 Ml Neb Administered 12/06/17 17:13 Dose 3 ml IH .STK-MED ONE Albuterol/Ipratropium 3 ml 12/06/17 17:14 12/06/17 17:18 Duoneb 0.5-3 Mg/3 Ml Neb IH 12/06/17 17:15 3 ml STAT ONE Administration Ceftriaxone Sodium/Dextrose 1 g in 50 mls @ 100 mls/hr 12/06/17 17:56 19:32 Rocephin 1 Gm-D5w 50 Ml Bag IV 12/06/17 18:25 1 mls/hr STAT STA 1 mls/hr Administration Ceftriaxone Sodium/Dextrose Confirm 12/06/17 19:06 Rocephin 1 Gm-D5w 50 Ml Bag Administered 12/06/17 19:07 Dose 1 g in 50 mls @ ud IV .STK-MED ONE Methylprednisolone Sodium Succinate 125 mg 12/06/17 17:14 12/06/17 17:27 Solu-Medrol 125 Mg IV 12/06/17 17:15 125 mg STAT ONE Administration Methylprednisolone Sodium Succinate Confirm 12/06/17 17:18 Solu-Medrol 125 Mg Administered 12/06/17 17:19 Dose 125 mg .ROUTE .STK-MED ONE Morphine Sulfate 4 mg 12/06/17 17:13 12/06/17 17:26 Morphine Sulfate 4 Mg Inj IV 12/06/17 17:14 4 mg STAT ONE Administration Morphine Sulfate Confirm 12/06/17 17:15 Morphine Sulfate 4 Mg Inj Administered 12/06/17 17:16 Dose 4 mg .ROUTE .STK-MED ONE Morphine Sulfate 4 mg 12/06/17 19:58 12/06/17 20:04 Morphine Sulfate 4 Mg Inj IV 12/06/17 19:59 4 mg STAT ONE Administration Morphine Sulfate Confirm 12/06/17 20:02 Morphine Sulfate 4 Mg Inj Administered 12/06/17 20:03 Dose 4 mg .ROUTE .STK-MED ONE Nitroglycerin 1 gm 12/06/17 17:46 12/06/17 17:49 Nitro-Bid 2% Ud Packets TOP 12/06/17 17:47 1 gm STAT ONE Administration Nitroglycerin Confirm 12/06/17 17:47 Nitro-Bid 2% Ud Packets Administered 12/06/17 17:48 Dose 1 gm .ROUTE .STK-MED ONE Ondansetron HCl 4 mg 12/06/17 17:13 12/06/17 17:27 Zofran 4 Mg/2 Ml Vial IV 12/06/17 17:14 4 mg STAT ONE Administration Ondansetron HCl Confirm 12/06/17 17:18 Zofran 4 Mg/2 Ml Vial Administered 12/06/17 17:19 Dose 4 mg .ROUTE .STK-MED ONE Thiamine HCl 100 mg 12/06/17 17:39 12/06/17 17:48 Thiamine 200 Mg/2 Ml IV 12/06/17 17:40 100 mg STAT ONE Administration Thiamine HCl Confirm 12/06/17 17:46 Thiamine 200 Mg/2 Ml Administered 12/06/17 17:47 Dose 200 mg .ROUTE .STK-MED ONE Lab/Rad Data: Laboratory Result Diagrams 12/06/17 17:40 12/06/17 17:10 Laboratory Results 12/06/17 12/06/17 12/06/17 Range/Units 17:40 17:27 17:10 WBC 11.4 H (4.0-10.5) K/mm3 RBC 5.21 (4.1-5.6) M/mm3 Hgb 17.1 (12.5-18.0) gm/dl Hct 50.1 H (42-50) % MCV 96.2 (78-100) fl MCH 32.8 H (26-32) pg MCHC 34.1 (32-36) g/dl RDW 13.7 (11.5-14.0) % Plt Count 197 (150-450) K/mm3 MPV 9.8 H (6-9.5) fl Gran % 59.3 (36.0-66.0) % Eos # (Auto) 0.64 H (0-0.5) Absolute Lymphs (auto) 2.91 (1.0-4.6) Absolute Monos (auto) 0.99 (0.0-1.3) Lymphocytes % 25.6 (24.0-44.0) % Monocytes % 8.7 (0.0-12.0) % Eosinophils % 5.6 H (0.00-5.0) % Basophils % 0.8 (0.0-0.4) % Absolute Granulocytes 6.75 (1.4-6.9) Basophils # 0.09 (0-0.4) PT (8.83-12.87) SECONDS INR (0.8-3.0) APTT (24.1-36.1) SECONDS D-Dimer (215-500) ng/mL pO2/FiO2 Ratio 28.0 % VBG pH 7.36 (7.32-7.42) VBG pCO2 at Pat Temp 49 (42-55) mm/Hg VBG pO2 at Pat Temp 47 H (25-40) mm/Hg VBG HCO3 27.7 (22-28) meq/L VBG O2 Sat (Camilo) 86.5 L (95-100) VBG Base Excess 1.2 (-2.0-2.0) VBG Hemoglobin 17.6 VBG Carboxyhemoglobin 7.7 H* (0.0-6.9) % T HGB POC Potassium 4.6 (3.5-5.1) Sodium (137-145) mmol/L Potassium (3.5-5.1) mmol/L Chloride (98-107) mmol/L Carbon Dioxide (22-30) mmol/L Anion Gap (5-15) MEQ/L BUN (9-20) mg/dL Creatinine (0.66-1.25) mg/dL Estimated GFR ML/MIN Glucose (74-106) mg/dL Lactic Acid 1.6 (0.4-2.0) Calcium (8.4-10.2) mg/dL Total Bilirubin (0.2-1.3) mg/dL AST (17-59) U/L ALT (0-50) U/L Alkaline Phosphatase (38-126) U/L Troponin I < 0.012 (0.000-0.034) ng/mL NT-Pro-B Natriuret Pep (0-900) pg/mL Serum Total Protein (6.3-8.2) g/dL Albumin (3.5-5.0) g/dL 12/06/17 12/06/17 Range/Units 17:10 17:10 WBC (4.0-10.5) K/mm3 RBC (4.1-5.6) M/mm3 Hgb (12.5-18.0) gm/dl Hct (42-50) % MCV (78-100) fl MCH (26-32) pg MCHC (32-36) g/dl RDW (11.5-14.0) % Plt Count (150-450) K/mm3 MPV (6-9.5) fl Gran % (36.0-66.0) % Eos # (Auto) (0-0.5) Absolute Lymphs (auto) (1.0-4.6) Absolute Monos (auto) (0.0-1.3) Lymphocytes % (24.0-44.0) % Monocytes % (0.0-12.0) % Eosinophils % (0.00-5.0) % Basophils % (0.0-0.4) % Absolute Granulocytes (1.4-6.9) Basophils # (0-0.4) PT 10.0 (8.83-12.87) SECONDS INR 0.86 (0.8-3.0) APTT 35.1 (24.1-36.1) SECONDS D-Dimer 769 H* (215-500) ng/mL pO2/FiO2 Ratio % VBG pH (7.32-7.42) VBG pCO2 at Pat Temp (42-55) mm/Hg VBG pO2 at Pat Temp (25-40) mm/Hg VBG HCO3 (22-28) meq/L VBG O2 Sat (Camilo) (95-100) VBG Base Excess (-2.0-2.0) VBG Hemoglobin VBG Carboxyhemoglobin (0.0-6.9) % T HGB POC Potassium (3.5-5.1) Sodium 136 L (137-145) mmol/L Potassium 4.7 (3.5-5.1) mmol/L Chloride 99 (98-107) mmol/L Carbon Dioxide 27 (22-30) mmol/L Anion Gap 14.8 (5-15) MEQ/L BUN 12 (9-20) mg/dL Creatinine 0.80 (0.66-1.25) mg/dL Estimated GFR > 60.0 ML/MIN Glucose 96 (74-106) mg/dL Lactic Acid (0.4-2.0) Calcium 9.9 (8.4-10.2) mg/dL Total Bilirubin 0.80 (0.2-1.3) mg/dL AST 38 (17-59) U/L ALT 21 (0-50) U/L Alkaline Phosphatase 68 (38-126) U/L Troponin I (0.000-0.034) ng/mL NT-Pro-B Natriuret Pep 195 (0-900) pg/mL Serum Total Protein 8.2 (6.3-8.2) g/dL Albumin 5.1 H (3.5-5.0) g/dL - Progress Progress: improved Air Movement: fair Progress Note: 12/06/17 20:36 This is a 62-year-old white male who arrives with complaint of a severe shortness breath and pain in his left posterior thoracic area he states that he felt a pop and then became quite short of breath he's arrived with a breathing 30 times per minute old socks was 85% on 2 L he had wheezes throughout his lung talley he states that he would have pain and want to cough when he would try to take a deep breath Patient's heart rate was elevated on examination Patient was given DuoNeb treatment started on Solu-Medrol, given morphine 4 mg IV Because of her elevated blood pressure patient was also given 1 inch of Nitropaste Patient's chest x-ray was remarkable for COPD who did not appear to be infiltrates or pneumothorax Patient's d-dimer was elevated at 769 CBC White blood cell 11.4 hemoglobin 17.1 hematocrit 50.1 platelets 197 patient's venous gas showed a pH of 7.36 PCO2 49 Patient's chemistry showed a sodium 136 potassium 47 chloride 99 bicarbonate 27 BUN 12 creatinine 0.8 glucose 96 Lactate was noted to be 1.6 BNP was 195 troponin less than 0.012 EKG normal sinus rhythm no acute ST or T wave changes CT of the chest was obtained which was negative for pulmonary embolism Patient did improve after albuterol treatments Solu-Medrol morphine and nitroglycerin He did however complain of pain in his left posterior thoracic area and still shortness of breath. I contacted Dr. Mcduffie who is subcontract administrator for Dr. Jimenez. Will go ahead and place patient on observation telemetry diagnosis COPD with exacerbation, left posterior thoracic area pain( pleurisy) Shortness of breath Patient does state that he drinks daily he was given thiamine 100 mg IV. Will continue duo neb treatments IV steroids morphine as needed for pain Rocephin (patient given 1 g of Rocephin in the emergency room) will also give patient Zithromax Will continue Nitrol paste 1 inch every 6 hours. - Departure Time of Disposition: 20:41 Departure Disposition: Home Clinical Impression: COPD with exacerbation, SOB (shortness of breath), Pleurisy Condition: Fair Critical Care Time: No Referrals: KRISTY JIMENEZ MD [Primary Care Provider] - Instructions: Chronic Obstructive Pulmonary Disease
[2017-12-06 17:31] LABS: Lactic Acid 1.6 (0.4-2.0); VBG BASE EXCESS 1.2 (-2.0-2.0); VBG CARBOXYHEMOGLOBIN 7.7 % T HGB (0.0-6.9); VBG HCO3- 27.7 meq/L (22-28); VBG HEMOGLOBIN 17.6; VBG O2 SATURATION 86.5 (95-100); VBG POTASSIUM 4.6 (3.5-5.1); VBG pH 7.36 (7.32-7.42)
[2017-12-06] MEDS ORDERED: THIAMINE 200 MG/2 ML IV ONE (17:39)
[2017-12-06] MEDS ORDERED: NITRO-BID 2% UD PACKETS TOP ONE (17:46)
[2017-12-06] MEDS ORDERED: THIAMINE 200 MG/2 ML ONE (17:46)
[2017-12-06] MEDS ORDERED: NITRO-BID 2% UD PACKETS ONE (17:47)
[2017-12-06 17:51] LABS: BASOPHIL % 0.8 % (0.0-0.4); Basophil (Absolute #) 0.09 (0-0.4); Eosinophil % 5.6 % (0.00-5.0); Eosinophil (Absolute #) 0.64 (0-0.5); Granulocyte Absolute (ANC) 6.75 (1.4-6.9); Granulocytes % 59.3 % (36.0-66.0); Hematocrit 50.1 % (42-50); Hemoglobin 17.1 gm/dl (12.5-18.0); Lymphocyte (Absolute #) 2.91 (1.0-4.6); Lymphocytes % 25.6 % (24.0-44.0); Mean Cell Volume 96.2 fl (78-100); Mean Corpuscular Hemoglobin 32.8 pg (26-32); Mean Corpuscular Hgb Concent. 34.1 g/dl (32-36); Mean Platelet Volume 9.8 fl (6-9.5); Monocyte (Absolute #) 0.99 (0.0-1.3); Monocytes % 8.7 % (0.0-12.0); Platelet Count 197 K/mm3 (150-450); Red Blood Count 5.21 M/mm3 (4.1-5.6); Red Cell Distribution Width 13.7 % (11.5-14.0); White Blood Count 11.4 K/mm3 (4.0-10.5)
[2017-12-06] MEDS ORDERED: ROCEPHIN 1 Gm-D5w 50 ml Bag** 1 G/50 ML IVPB IV STA (17:56)
[2017-12-06 18:06] LABS: INR 0.86 (0.8-3.0)
[2017-12-06 18:09] LABS: PTT 35.1 SECONDS (24.1-36.1)
[2017-12-06 18:12] LABS: ALBUMIN 5.1 g/dL (3.5-5.0); ALKALINE PHOSPHATASE 68 U/L (38-126); ANION GAP 14.8 MEQ/L (5-15); BLOOD UREA NITROGEN 12 mg/dL (9-20); CHLORIDE 99 mmol/L (98-107); Calcium 9.9 mg/dL (8.4-10.2); Carbon Dioxide 27 mmol/L (22-30); Glucose 96 mg/dL (74-106); Potassium 4.7 mmol/L (3.5-5.1); SGOT/AST 38 U/L (17-59); SGPT/ALT 21 U/L (0-50); SODIUM 136 mmol/L (137-145); Total Protein 8.2 g/dL (6.3-8.2)
[2017-12-06 18:22] LABS: NT PRO BNP 195 pg/mL (0-900)
[2017-12-06] MEDS ORDERED: ROCEPHIN 1 Gm-D5w 50 ml Bag** 1 G/50 ML IVPB IV ONE (19:06)
[2017-12-06] MEDS ORDERED: PROVENTIL 2.5 MG/3 ML NEB IH ONE (20:01)
[2017-12-06] MEDS ORDERED: Zithromax 500 MG/ 250 ML NaCl Premix 500 MG/250 ML IVPB IV STA (21:10)
[2017-12-06] MEDS ORDERED: Zithromax 500 MG/ 250 ML NaCl Premix 500 MG/250 ML IVPB IV ONE (21:11)
[2017-12-06] MEDS ORDERED: DUONEB 0.5-3 MG/3 ml Neb IH PRN (22:21)
[2017-12-06] MEDS ORDERED: Zofran 4 MG/2 ML VIAL IV PRN (22:21)
[2017-12-06] MEDS ORDERED: MORPHINE SULFATE 4 MG INJ IV PRN (22:21)
[2017-12-06] MEDS ORDERED: Ativan 2 MG/1 ML VIAL IV PRN (23:46)
[2017-12-07] MEDS ORDERED: ENOXAPARIN SODIUM SQ SCH
[2017-12-07] MEDS: solu-MEDROL 125 MG IV SCH ×4 (00:30→17:14)
[2017-12-07] MEDS: Tussionex Pennkinetic Susp PO SCH ×2 (00:33→10:50)
[2017-12-07] MEDS: NITRO-BID 2% UD PACKETS TOP SCH ×3 (03:35→16:30)
[2017-12-07 05:49] LABS: BASOPHIL % 0.1 % (0.0-0.4); Basophil (Absolute #) 0.01 (0-0.4); Eosinophil % 0.1 % (0.00-5.0); Eosinophil (Absolute #) 0.01 (0-0.5); Granulocyte Absolute (ANC) 7.41 (1.4-6.9); Granulocytes % 90.6 % (36.0-66.0); Hemoglobin 15.9 gm/dl (12.5-18.0); Lymphocytes % 8.5 % (24.0-44.0); Mean Cell Volume 97.9 fl (78-100); Mean Corpuscular Hemoglobin 33.1 pg (26-32); Mean Corpuscular Hgb Concent. 33.8 g/dl (32-36); Monocyte (Absolute #) 0.06 (0.0-1.3); Monocytes % 0.7 % (0.0-12.0); Platelet Count 188 K/mm3 (150-450); Red Cell Distribution Width 13.7 % (11.5-14.0); White Blood Count 8.2 K/mm3 (4.0-10.5)
[2017-12-07 05:53] LABS: ALKALINE PHOSPHATASE 51 U/L (38-126); ANION GAP 12.4 MEQ/L (5-15); BLOOD UREA NITROGEN 13 mg/dL (9-20); CHLORIDE 100 mmol/L (98-107); Calcium 8.7 mg/dL (8.4-10.2); Carbon Dioxide 25 mmol/L (22-30); Creatinine 1 0.66 mg/dL (0.66-1.25); Glucose 151 mg/dL (74-106); Potassium 4.4 mmol/L (3.5-5.1); SGOT/AST 26 U/L (17-59); SGPT/ALT 19 U/L (0-50); SODIUM 133 mmol/L (137-145); Total Protein 6.6 g/dL (6.3-8.2)
--- NOTE | 2017-12-07 08:41 | XRAY ---
Indication: Cough and short of breath. History COPD. Multiple contiguous axial images obtained through the chest using 100 cc Isovue 370 contrast and PE protocol. Comparison: October 05, 2017. There is good opacification of the pulmonary arteries to include the lobar and segmental branches. Again no filling defect or pulmonary embolus. Heart is not enlarged. Aorta is normal in course and caliber. Stable tiny right hilar calcified nodes. No pathologic mediastinal/hilar lymphadenopathy. Lungs again hyperinflated with stable minimal right middle and left lower lobe fibrosis/scarring. Also stable tiny right lower lobe calcified granuloma. No suspicious pulmonary mass, infiltrate, or effusion. Bony thorax intact. Limited upper abdomen including adrenal glands are unremarkable. Impression: 1. Again negative pulmonary embolus. 2. Stable COPD, fibrosis/scarring, and evidence for old granulomatous disease. CT DI 23.33
--- NOTE | 2017-12-07 08:43 | XRAY ---
Indication: Short of breath, left chest pain, and productive cough. Comparison: October 08, 2017. Portable chest remains hyperinflated and clear again with a few incidental calcified granulomas. Heart is not enlarged. Bony thorax intact. No new/acute findings. Impression: Stable nonacute hyperinflated chest.
--- NOTE | 2017-12-07 09:49 | XRAY ---
Indication: Elevated d-dimer. Two-dimensional sonogram and color Doppler imaging of the major venous vessels of the left and right leg was performed. Comparison: None No thrombus seen in the examined deep venous vessels of the left and right leg including greater saphenous veins. Veins demonstrate normal compressibility. Venous waveforms are normal with and without augmentation. Impression: Left and right legs negative for DVT.
[2017-12-07] MEDS ORDERED: ROCEPHIN 1 Gm-D5w 50 ml Bag** 1 G/50 ML IVPB IV SCH (10:00)
[2017-12-07] MEDS: Advair Hfa 230/21 Mcg COMMON CANISTER IH SCH ×2 (11:43→19:27)
[2017-12-07] MEDS ORDERED: Protonix 20MG Tablet PO SCH (15:30)
[2017-12-07] MEDS ORDERED: Cyclobenzaprine 10 MG PO SCH (15:30)
[2017-12-07 15:41] LABS: LIPASE 118 U/L (23-300)
[2017-12-07 15:54] LABS: TROPONIN < 0.012 ng/mL (0.000-0.034)
--- NOTE | 2017-12-07 15:56 | HP ---
HISTORY OF PRESENT ILLNESS: Tristin Patel is a 62 year old male with past medical history of chronic obstructive pulmonary disease, arthritis, anxiety. He presented to the emergency room yesterday evening with increasing shortness of breath which started yesterday morning. Reportedly the patient was lying down on his sofa. He turned over and suddenly felt a pop in the left side of back (left thoracic region). There was no reported history of injury or unusual activity prior to onset of symptoms. The patient also reported symptoms of productive cough and wheezing. However, he denied chest pain as such. His mid back pain did get worse with deep breathing/cough. Upon initial evaluation in the emergency room, he was noted to have heart rate of 102, respiratory rate 26, blood pressure 154/117, temperature 97.6F and oxygen saturation of 93%. After initial work up in the emergency room he was treated with DuoNeb, Rocephin 1 gm IV x1, Solu-Medrol 125 mg IV x1, morphine 4 mg IV x2, Nitro 2% packet, Zofran 4 mg IV x1, thiamine 100 mg IV x1. Subsequently he was admitted to the medical floor for further monitoring and management. Since admission he was continued on IV steroids, broad spectrum IV antibiotic. I contacted the patient's nurse last night and did ask her to start the patient on alcohol withdrawal protocol as well. The patient was continued on analgesic. Reportedly by nursing staff, the patient's SOD score has been normal and the patient was not placed on this protocol. At the time of this evaluation the patient is alert, awake and comfortable. He states his shortness of breath has improved a lot. He was still having some cough. He states his left mid back pain has improved. He is wishing to go home. PAST MEDICAL HISTORY: As noted above. Anxiety. The patient does not have primary care physician and follows only with ug designer at OR in [place]. PAST SURGICAL HISTORY: Noncontributory. ALLERGIES: NKDA. MEDICATIONS: Home medications were reviewed. FAMILY HISTORY: Noncontributory to current admission. SOCIAL HISTORY: The patient smokes two packs per day, drinks 12 pack of beer a day. He denies any illicit drug use. He smokes two packs a day. REVIEW OF SYSTEMS: Denies headache or dizziness. He complains of fatigue. Denies fever. Denies chest pain. He complains of shortness of breath and nonproductive cough both have improved since treatment. Denies palpitations. Complains of mid back pain (left side). Denies abdominal pain, nausea or vomiting. Denies constipation or diarrhea. Denies urinary complaints. PHYSICAL EXAMINATION: A middle aged male lying comfortably in bed, not in acute distress. VITAL SIGNS: Blood pressure 137/72, heart rate 80, respiratory rate 20, temperature 97.8F. Oxygen saturation 94% on 3 liters. HEENT: Normocephalic. No pallor or icterus is noted. NECK: No JVD is present. CVS: S1, S2 present. CHEST: Breath sounds are bilaterally diminished, scattered wheezing present. Tenderness present on left lower ribs posteriorly. ABDOMEN: Soft, nontender. NEURO: He is alert, oriented x3. EXTREMITIES: No edema on bilateral lower extremities. BACK: No tenderness to percussion in upper and mid back area as well as paraspinal area. LABORATORY DATA AND TESTS: Labs from yesterday were notable for CBC with white blood cell 11.4. D-dimer 769. Venous blood gas showed pH of 7.36. Initial CMP was unremarkable. NT-BNP was 195. Troponin less than 0.012. Today's CMP was notable for glucose of 151. Lactic acid on admission was 1.6. Today's CBC is unremarkable. Chest x-ray showed stable nonacute hyperinflated chest. CT chest showed no pulmonary embolism, stable chronic obstructive pulmonary disease, fibrosis/scarring and evidence of old granulomatous disease. Bilateral lower extremity venous Doppler was negative for deep venous thrombosis. ASSESSMENT: A 62 year old male with impression: 1) Chronic obstructive pulmonary disease with exacerbation. 2) Acute bronchopneumonia. 3) Mid back pain (left side). 4) Anxiety. 5) History of arthritis. 6) Alcohol abuse. 7) Nicotine addiction. 8) Elevated D-dimer. PLAN: The patient is admitted for further monitoring and management. The patient was placed on IV antibiotics, IV steroids. He has improved, remains hemodynamically stable. He is wishing to go home. I will obtain lipase, repeat troponin, rib x-ray in view of the patient's symptoms and repeat chest x-ray as well. I will add azithromycin if work up is negative. Ambulate the patient and likely discharge home. Complete cessation of smoking and alcohol intake was stressed with the patient. The patient states that he has an appointment with ug designer in [place] in the middle December and he will keep that appointment. The patient is advised to obtain a primary care physician of his choice and follow up in the next couple of weeks. The plan was discussed with the patient and family. They seem to be in understanding and agreement. Discussed with patient's nurse.
--- NOTE | 2017-12-07 16:27 | XRAY ---
Indication: Posterior rib pain and short of breath following injury. Comparison: None 2 views of the left ribs demonstrates nondisplaced posterior 10th rib fracture. Elsewhere mild AC degenerative arthropathy, minimal lumbar degenerative spondylosis, and tiny pulmonary calcified granulomas.
--- NOTE | 2017-12-07 16:30 | XRAY ---
Indication: Short of breath and left posterior rib pain following injury. Comparison: One day earlier. PA/lateral chest unchanged again hyperinflated and clear with few incidental calcific granulomas. Heart and mediastinal structures within normal limits. Left ribs reported separately.
[2017-12-07 20:01] VITALS: BP 125/63; PULSE 77; O2SAT 94
[2017-12-07] MEDS ORDERED: Zithromax 500 MG/ 250 ML NaCl Premix 500 MG/250 ML IVPB IV SCH (22:00)
[2017-12-08] MEDS ORDERED: ENOXAPARIN SODIUM SQ SCH (10:00)
--- NOTE | 2017-12-13 09:00 | DS ---
DISCHARGE DIAGNOSES: 1) CHRONIC OBSTRUCTIVE PULMONARY DISEASE WITH EXACERBATION. 2) ACUTE BRONCHOPNEUMONIA. 3) LEFT MID BACK PAIN. 4) ANXIETY. 5) ALCOHOL DEPENDENCE/ALCOHOL ABUSE. 6) NICOTINE ADDICTION. 7) ELEVATED D-DIMER. HOSPITAL COURSE: Tristin Patel is a 62 year-old male with past medical history of chronic obstructive pulmonary disease, arthritis, anxiety, chronic hypoxemia. He was admitted to the emergency room on 12/06/2017 with increasing shortness of breath and cough. He also reported pain on the left side of his back (left thoracic/mid back region). He was treated with supplemental oxygen, nebulization, broad spectrum IV antibiotic and IV steroids. He was also placed on treatment analgesic. Initial lab work up was notable for CBC with white blood cell count of 11.4 and D-dimer 769. Venous blood gas showed pH of 7.2. BNP was 195. Troponin was less than 0.012. Initial CMP was unremarkable. The patient was eventually admitted to medical floor. He was continued on IV steroids, IV antibiotics, nebulization and supplemental oxygen. He has continued on IV analgesic. Subsequent labs during his stay showed lactic acid of 1.6. Today's labs were notable for glucose 151 and the rest were unremarkable. Chest x-ray on admission showed stable nonacute hyperinflated chest, showed no pulmonary embolism, stable chronic obstructive pulmonary disease, atelectasis/scarring and evidence of old granulomatous disease. The patient also underwent bilateral lower extremity venous Doppler which were negative for deep venous thrombosis. Eventually the patient improved clinically, remained hemodynamically stable. Please refer to my H&P dictated earlier today for details. At the time my evaluation the patient's shortness of breath had improved significantly. He was still having some left mid back pain but was improved on analgesics. He appeared comfortable and was wishing to go home. In view of the patient's symptoms, additional work up was obtained. Repeat chest x-ray report had shown unchanged findings with hyperinflated chest. Left ribs x-ray showed nondisplaced posterior transverse fracture. Labs were within normal limits. Troponin was less than 0.012. The patient otherwise was feeling much better and wanting to be discharged home. The patient ambulated with stable oxygen saturations. The patient was discharged home in stable condition. Please refer to discharge medication list from 12/07/2017 for details of medications on discharge. I have advised the patient to start discharge medications, compliance with medications, appointments as well as complete cessation smoking and alcohol intake was stressed. 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 He was advised to follow up for that. I instructed the nursing staff with the patient on incentive spirometry and teach him the technique of use of the same. The patient instructed on that prior to his discharge. Additionally, I placed the patient on piroxicam and a few muscle relaxants. The patient stated that he already has home oxygen. Additionally p.o. antibiotics and steroid prescriptions were given to the patient. He was advised to avoid extensive use of Motrin (reportedly the patient had been taking Motrin prior to his presentation). I have advised the patient to obtain a local family care physician and follow up with primary care physician of his choice in the next couple of weeks. The patient has history of chronic alcohol abuse. Initially he was treated with thiamine. However eventually as per nursing assessment his CIWA scores were unremarkable and withdrawal protocol was placed on him. I have advised to return to the Emergency Room [facility] if any new signs and symptoms or reappearance of previous signs and symptoms are noted. The patient's clinical condition, work-up results including plan of management after discharge were discussed with patient and his family. They seem to be in understanding and agreement. Their questions were answered in detail. The plan was discussed with patient's nurse. Please refer to the patient's chart, labs, diagnostic work up results and consult notes for details.
== END 2017-12-07 20:30 | disposition home or self-care (01) ==
LOC: ED 17:06 → MED SURG 22:05
PROVIDERS: ADMIT General Practice; ATTEND General Practice
DX: J44.1 Chronic obstructive pulmonary disease with (acute) exacerbation (principal); J18.0 Bronchopneumonia, unspecified organism; M54.6 Pain in thoracic spine; F41.9 Anxiety disorder, unspecified; F10.20 Alcohol dependence, uncomplicated; F17.200 Nicotine dependence, unspecified, uncomplicated; R79.1 Abnormal coagulation profile; M19.90 Unspecified osteoarthritis, unspecified site
CPT/HCPCS: 36000; 36415; 71045; 71046; 71100; 71260; 80053; 82805; 83605; 83690; 83880; 84484; 85025; 85379; 85610; 85730; 87040; 93005; 93041; 93268; 93970; 94640; 94760; 96360; 96361; 96365; 96367; 96374; 96375; 96376; 99285; J0456; J0696; J1650; J2270; J2405; J2930; A9270-GY; G0378

== ENCOUNTER 2018-01-11 18:19 | Emergency (ER) | payer OTHER ==
[2018-01-11] MEDS ORDERED: Zofran 4 MG/2 ML VIAL IV ONE (18:42)
--- NOTE | 2018-01-11 18:58 | ERPHSYRPT ---
- History of Present Illness Time Seen by Provider: 01/11/18 18:36 Source: patient, EMS Exam Limitations: intoxication Physician History: 62 y/o white male h/o copd with sig smoking cigarette hx presents with dizziness after attempting to stand up after drinking etoh at home. has chronic soa. denies cp. no head injury. pt states he has had similar dizzy spells in the past and he was not drinking etoh. pt states he is feeling much better. he states he did not fall and hit his head. 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) Activities at Onset: other (drinking etoh) Modifying Factors: Improves With: other (dizzy upon standing) Nitro Today/Relief: no nitro taken today Aspirin Treatment Today: no aspirin today Associated Symptoms: shortness of breath (chroni), No nausea, No vomiting, No abdominal pain, No chest pain, No headaches Prior Chest Pain/Cardiac Workup: no prior chest pain, no prior cardiac workup Allergies/Adverse Reactions: No Known Drug Allergies Allergy (Verified 01/11/18 18:44) Home Medications: Ipratropium/Albuterol Sulfate [Combivent Inhaler] 14.7 gm IH Q6H PRN PRN [History] Albuterol 2.5 mg/0.5 ml [PROVENTIL Solution 2.5 MG/0.5 ML] 2.5 mg IH Q4H PRN PRN 10/06/17 [History] Budesonide/Formoterol Fumarate [Symbicort 80-4.5 Mcg Inhaler] 6.9 gm IH Q12H [History] Ibuprofen 200 mg [Motrin 200 mg] 800 mg PO BID PRN PRN 10/06/17 [History] Hx Tetanus, Diphtheria Vaccination/Date Given: No Hx Influenza Vaccination/Date Given: No Hx Pneumococcal Vaccination/Date Given: No - Review of Systems Constitutional: No Symptoms Eyes: No Symptoms, No Eye Pain Ears, Nose, & Throat: No Symptoms, No Ear Pain Respiratory: No Symptoms, No Cough, No Dyspnea, No Stridor, No Wheezing Cardiac: No Symptoms, No Chest Pain, No Palpitations, No Syncope Abdominal/Gastrointestinal: No Symptoms, No Abdominal Pain, No Nausea, No Vomiting, No Diarrhea Genitourinary Symptoms: No Symptoms, No Dysuria, No Frequency, No Hematuria Musculoskeletal: No Symptoms, No Back Pain, No Neck Pain, No Fall, No Injury Skin: No Symptoms Neurological: Dizziness (upon standing after consuming etoh) Psychological: Alcohol Abuse Endocrine: No Symptoms Hematologic/Lymphatic: No Symptoms Immunological/Allergic: No Symptoms All Other Systems: Reviewed and Negative - Past Medical History Pertinent Past Medical History: Yes Neurological History: No Pertinent History ENT History: No Pertinent History Cardiac History: No Pertinent History Respiratory History: COPD, Other Endocrine Medical History: No Pertinent History Musculoskeletal History: Arthritis GI Medical History: No Pertinent History History: No Pertinent History Psycho-Social History: Other Male Reproductive Disorders: No Pertinent History Other Medical History: few fractures - Past Surgical History Past Surgical History: No Neuro Surgical History: No Pertinent History Cardiac: No Pertinent History Respiratory: No Pertinent History Gastrointestinal: No Pertinent History Genitourinary: No Pertinent History Musculoskeletal: No Pertinent History Male Surgical History: No Pertinent History - Social History Smoking Status: Current every day smoker How long have you smoked: years Exposure to second hand smoke: Yes Alcohol Use: Chronic (daily throughout the day including work time) Drug Use: none Patient Lives Alone: No - Nursing Vital Signs Nursing Vital Signs: Initial Vital Signs Temperature 97.5 F 01/11/18 18:31 Pulse Rate 79 01/11/18 18:31 Respiratory Rate 20 01/11/18 18:31 Blood Pressure 117/80 01/11/18 18:31 O2 Sat by Pulse Oximetry 96 01/11/18 18:31 Pain Scale Pain Intensity 0 - Physical Exam General Appearance: no apparent distress, alert Eye Exam: PERRL/EOMI, eyes nml inspection Ears, Nose, Throat Exam: normal ENT inspection Neck Exam: normal inspection, non-tender, supple, full range of motion Respiratory Exam: normal breath sounds, lungs clear, airway intact, No chest tenderness, No respiratory distress, No accessory muscle use, No wheezing, No stridor Cardiovascular Exam: regular rate/rhythm, normal heart sounds, normal peripheral pulses Gastrointestinal/Abdomen Exam: soft, normal bowel sounds, No tenderness, No guarding, No rebound Rectal Exam: not done Back Exam: normal inspection, normal range of motion, No CVA tenderness, No vertebral tenderness Extremity Exam: normal inspection, normal range of motion, pelvis stable Neurologic Exam: alert, 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, cooperative, grants analyst II-XII nml as tested, intoxicated appearance Skin Exam: normal color, warm, dry Lymphatic Exam: No adenopathy SpO2 Interpretation: normal Oxygen Delivery: Room Air - Course Nursing assessment & vital signs reviewed: Yes EKG Interpreted by Me: Sinus Rhythm, NORMAL AXIS, NORMAL INTERVALS, NORMAL QRS, Right Bundle Branch Block, Non-specific ST Changes Rhythm Strip: Rate (82) Ordered Tests: Active Orders 24 hr Category Date Time Status Embryology Teacher STAT Care 01/11/18 18:43 Active CBC W DIFF Stat Lab 01/11/18 19:22 Completed CMP Stat Lab 01/11/18 19:22 Completed ETHYL ALCOHOL Stat Lab 01/11/18 19:22 Completed TROPONIN Q3H Lab 01/11/18 19:22 Received TROPONIN Q3H Lab 01/11/18 21:45 Ordered UA W/RFX UR CULTURE Stat Lab 01/11/18 18:43 Completed Urine Triage Profile Stat Lab 01/11/18 18:43 Ordered Medication Summary Generic Name Dose Route Start Last Admin Trade Name Freq PRN Reason Stop Dose Admin Ondansetron HCl 4 mg 01/11/18 18:42 01/11/18 19:09 Zofran 4 Mg/2 Ml Vial IV 4 mg STAT ONE Administration Discontinued Medications Generic Name Dose Route Start Last Admin Trade Name Freq PRN Reason Stop Dose Admin Ondansetron HCl Confirm 01/11/18 19:07 Zofran 4 Mg/2 Ml Vial Administered 01/11/18 19:08 Dose 4 mg .ROUTE .STFlixlab-MED ONE Lab/Rad Data: Laboratory Result Diagrams 01/11/18 19:22 01/11/18 19:22 Laboratory Results 01/11/18 01/11/18 01/11/18 Range/Units 19:22 19:22 18:43 WBC 8.7 (4.0-10.5) K/mm3 RBC 4.14 (4.1-5.6) M/mm3 Hgb 13.8 (12.5-18.0) gm/dl Hct 40.7 L (42-50) % MCV 98.3 (78-100) fl MCH 33.3 H (26-32) pg MCHC 33.9 (32-36) g/dl RDW 13.5 (11.5-14.0) % Plt Count 162 (150-450) K/mm3 MPV 9.2 (6-9.5) fl Gran % 53.0 (36.0-66.0) % Eos # (Auto) 0.48 (0-0.5) Absolute Lymphs (auto) 2.83 (1.0-4.6) Absolute Monos (auto) 0.68 (0.0-1.3) Lymphocytes % 32.7 (24.0-44.0) % Monocytes % 7.9 (0.0-12.0) % Eosinophils % 5.5 H (0.00-5.0) % Basophils % 0.9 (0.0-0.4) % Absolute Granulocytes 4.59 (1.4-6.9) Basophils # 0.08 (0-0.4) Sodium 138 (137-145) mmol/L Potassium 3.4 L (3.5-5.1) mmol/L Chloride 106 (98-107) mmol/L Carbon Dioxide 21 L (22-30) mmol/L Anion Gap 13.7 (5-15) MEQ/L BUN 11 (9-20) mg/dL Creatinine 0.68 (0.66-1.25) mg/dL Estimated GFR > 60.0 ML/MIN Glucose 77 (74-106) mg/dL Calcium 8.2 L (8.4-10.2) mg/dL Total Bilirubin 0.30 (0.2-1.3) mg/dL AST 36 (17-59) U/L ALT 19 (0-50) U/L Alkaline Phosphatase 39 (38-126) U/L Serum Total Protein 6.1 L (6.3-8.2) g/dL Albumin 3.8 (3.5-5.0) g/dL Ur Collection Type VOID Urine Color LT.YELLOW (YELLOW) Urine Appearance CLEAR (CLEAR) Urine pH 5.0 (5-6) Ur Specific [place] 1.005 (1.005-1.025) Urine Protein NEGATIVE (Negative) Urine Ketones NEGATIVE (NEGATIVE) Urine Blood NEGATIVE (0-5) Luther/ul Urine Nitrite NEGATIVE (NEGATIVE) Urine Bilirubin NEGATIVE (NEGATIVE) Urine Urobilinogen NORMAL (0-1) mg/dL Ur Leukocyte Esterase NEGATIVE (NEGATIVE) Urine Culture Reflexed NO (NO) Urine Glucose NEGATIVE (NEGATIVE) mg/dL Ethyl Alcohol 204 H (0-10) mg/dL Specimen Received 8/31 1930 - Progress Progress: improved Air Movement: good Blood Culture(s) Obtained: No Antibiotics given: No Counseled pt/family regarding: lab results, diagnosis - Departure Time of Disposition: 20:01 Departure Disposition: Home Clinical Impression: Alcohol intoxication, Dizziness Condition: Stable Critical Care Time: No Referrals: KRISTY JIMENEZ MD [Primary Care Provider] - Additional Instructions: stop consuming alcohol. follow up with primary doctor for chronic alcohol issues.
[2018-01-11] MEDS ORDERED: Zofran 4 MG/2 ML VIAL ONE (19:07)
[2018-01-11 19:13] VITALS: BP 120/78; PULSE 78
[2018-01-11 19:40] LABS: BASOPHIL % 0.9 % (0.0-0.4); Basophil (Absolute #) 0.08 (0-0.4); Eosinophil % 5.5 % (0.00-5.0); Eosinophil (Absolute #) 0.48 (0-0.5); Granulocyte Absolute (ANC) 4.59 (1.4-6.9); Hematocrit 40.7 % (42-50); Hemoglobin 13.8 gm/dl (12.5-18.0); Lymphocyte (Absolute #) 2.83 (1.0-4.6); Lymphocytes % 32.7 % (24.0-44.0); Mean Cell Volume 98.3 fl (78-100); Mean Corpuscular Hemoglobin 33.3 pg (26-32); Mean Corpuscular Hgb Concent. 33.9 g/dl (32-36); Mean Platelet Volume 9.2 fl (6-9.5); Monocyte (Absolute #) 0.68 (0.0-1.3); Monocytes % 7.9 % (0.0-12.0); Platelet Count 162 K/mm3 (150-450); Red Blood Count 4.14 M/mm3 (4.1-5.6); Red Cell Distribution Width 13.5 % (11.5-14.0); White Blood Count 8.7 K/mm3 (4.0-10.5)
[2018-01-11 19:48] LABS: Appearance CLEAR (CLEAR); Bilirubin NEGATIVE (NEGATIVE); Blood NEGATIVE Ery/ul (0-5); Glucose NEGATIVE (NEGATIVE); Ketones NEGATIVE (NEGATIVE); Leukocyte Esterase NEGATIVE (NEGATIVE); Nitrite NEGATIVE (NEGATIVE); Protein,Urine Dip NEGATIVE (Negative); Specific Gravity 1.005 (1.005-1.025); Urobilinogen NORMAL mg/dL (0-1)
[2018-01-11 19:57] LABS: ALBUMIN 3.8 g/dL (3.5-5.0); ALKALINE PHOSPHATASE 39 U/L (38-126); ANION GAP 13.7 MEQ/L (5-15); BLOOD UREA NITROGEN 11 mg/dL (9-20); CHLORIDE 106 mmol/L (98-107); Calcium 8.2 mg/dL (8.4-10.2); Carbon Dioxide 21 mmol/L (22-30); Creatinine 1 0.68 mg/dL (0.66-1.25); ETHYL ALCOHOL 204 mg/dL (0-10); Glucose 77 mg/dL (74-106); Potassium 3.4 mmol/L (3.5-5.1); SGOT/AST 36 U/L (17-59); SGPT/ALT 19 U/L (0-50); SODIUM 138 mmol/L (137-145); Total Protein 6.1 g/dL (6.3-8.2)
[2018-01-11 20:00] VITALS: O2SAT 97
[2018-01-11 20:07] LABS: Amphetamine,Urine NEGATIVE (NEGATIVE); Barbiturate,Urine NEGATIVE (NEGATIVE); Benzodiazepine,Urine NEGATIVE (NEGATIVE); Cocaine,Urine NEGATIVE (NEGATIVE); Methadone,Urine NEGATIVE (NEGATIVE); Opiate,Urine NEGATIVE (NEGATIVE); PCP,Urine NEGATIVE (NEGATIVE); THC,Urine NEGATIVE (NEGATIVE)
== END 2018-01-11 20:12 | disposition home or self-care (01) ==
LOC: ED 18:19
DX: R42 Dizziness and giddiness (principal); F10.129 Alcohol abuse with intoxication, unspecified; Z79.899 Other long term (current) drug therapy
CPT/HCPCS: 36415; 80053; 80307; 81002; 84484; 85025; 93041; 96374; 99284; J2405; G0480

== ENCOUNTER 2018-04-24 19:13 | Emergency (ER) | payer MEDICARE, OTHER ==
--- NOTE | 2018-04-24 19:28 | ERPHSYRPT ---
- History of Present Illness Time Seen by Provider: 04/24/18 19:26 Source: patient Exam Limitations: no limitations Patient Subjective Stated Complaint: PT IS ALERT AND ORIENTED PT IS AMBULATORY WITH A STEADY GAIT. PT COMES IN WITH C/O SOB. PT STATES HE WAS DRIVING IN HIS CAR AT REST WHEN HE BECAME SOB. PT LUNG SOUNDS COARSE, NO WHEEZES NOTED A-P BILAT THROUGHOUT. PT RESP RATE 24 BREATHS PER MINUTE. PT HAS A PRODUCTIVE COUGH AND IS UNAWARE OF THE COLOR OF THE SPUTUM. Triage Nursing Assessment: SEE ABOVE Physician History: The patient is a 62-year-old male complaining that he had a worsening shortness of breath a few minutes ago while riding in a car. He has consumed at least a sixpack of beer today, as he does most days. He received an influenza vaccination on 04/15/18 any states he hasn't felt well since then. He received a pneumonia vaccination last year. He thinks he may have had a fever couple days ago. He is coughing more than usual. The cough is productive. His past medical history is significant for daily alcohol consumption and COPD. He continues to smoke cigarettes. [facility]. Timing/Duration: week(s) (1), gradual onset, worse Activities at Onset: none Severity of Dyspnea-Max: moderate Severity of Dyspnea-Current: moderate Possible Cause: chronic episodes, smoke exposure Modifying Factors: Improves With: coughing, exertion Associated Symptoms: cough, fever, wheezing, chills, productive cough Allergies/Adverse Reactions: No Known Drug Allergies Allergy (Verified 01/11/18 18:44) Home Medications: Ipratropium/Albuterol Sulfate [Combivent Inhaler] 14.7 gm IH Q6H PRN PRN [History] Albuterol 2.5 mg/0.5 ml [PROVENTIL Solution 2.5 MG/0.5 ML] 2.5 mg IH Q4H PRN PRN 10/06/17 [History] Budesonide/Formoterol Fumarate [Symbicort 80-4.5 Mcg Inhaler] 6.9 gm IH Q12H [History] Ibuprofen 200 mg [Motrin 200 mg] 800 mg PO BID PRN PRN 10/06/17 [History] Hx Tetanus, Diphtheria Vaccination/Date Given: No Hx Influenza Vaccination/Date Given: Yes (April) Hx Pneumococcal Vaccination/Date Given: No - Review of Systems Constitutional: Fever, Chills Eyes: No Symptoms Ears, Nose, & Throat: No Symptoms Respiratory: Cough, Dyspnea, Dyspnea on Exertion (ROMERO), Wheezing Cardiac: No Chest Pain, No Edema, No Syncope Abdominal/Gastrointestinal: No Abdominal Pain, No Nausea, No Vomiting, No Diarrhea Genitourinary Symptoms: No Dysuria Musculoskeletal: No Back Pain, No Neck Pain Skin: No Rash Neurological: No Dizziness, No Focal Weakness, No Sensory Changes Psychological: No Symptoms Endocrine: No Symptoms Hematologic/Lymphatic: No Symptoms Immunological/Allergic: No Symptoms All Other Systems: Reviewed and Negative - Past Medical History Pertinent Past Medical History: Yes Neurological History: No Pertinent History ENT History: No Pertinent History Cardiac History: No Pertinent History Respiratory History: COPD, Other Endocrine Medical History: No Pertinent History Musculoskeletal History: Arthritis GI Medical History: No Pertinent History History: No Pertinent History Psycho-Social History: Other Male Reproductive Disorders: No Pertinent History Other Medical History: few fractures - Past Surgical History Past Surgical History: No Neuro Surgical History: No Pertinent History Cardiac: No Pertinent History Respiratory: No Pertinent History Gastrointestinal: No Pertinent History Genitourinary: No Pertinent History Musculoskeletal: No Pertinent History Male Surgical History: No Pertinent History - Social History Smoking Status: Current every day smoker How long have you smoked: 50 YEARS Exposure to second hand smoke: Yes Alcohol Use: Chronic (daily throughout the day including work time) Drug Use: none Patient Lives Alone: No - Nursing Vital Signs Nursing Vital Signs: Initial Vital Signs Temperature 97.4 F 04/24/18 19:14 Pulse Rate 89 04/24/18 19:14 Respiratory Rate 24 04/24/18 19:14 Blood Pressure 151/87 04/24/18 19:14 O2 Sat by Pulse Oximetry 94 L 04/24/18 19:14 Pain Scale Pain Intensity 0 - Physical Exam General Appearance: moderate distress, thin Eye Exam: PERRL/EOMI Ears, Nose, Throat Exam: hearing grossly normal Neck Exam: normal inspection, supple Respiratory Exam: diminished breath sounds, prolonged expirations, wheezing Cardiovascular/Chest Exam: normal heart sounds, regular rate/rhythm Abdominal/Gastrointestinal Exam: soft, No tenderness, No distention, No mass Rectal Exam: not done Extremity Exam: non-tender, normal range of motion, normal inspection, no calf tenderness, no pedal edema Neurologic Exam: alert, 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, cooperative, facilities maintenance technician II-XII nml as tested, sensation nml, intoxicated appearance, slurred speech, No motor deficits Skin Exam: normal color, warm, No dry SpO2 Interpretation: normal SpO2: 94 Oxygen Delivery: Nasal Cannula - Course EKG Interpreted by Me: RATE, Sinus Rhythm, NORMAL AXIS, NORMAL INTERVALS, NORMAL QRS, NORMAL ST-T, Other (comp EKG 12/06/17.) - Radiology Exams Chest X-ray Interpretation: Interpreted by me, Negative (non acute hyperinflated 2V chest; comp 2V chest 12/07/17. ) Ordered Tests: Active Orders 24 hr Category Date Time Status Glass Maker STAT Care 04/24/18 19:42 Active EKG-ER Only STAT Care 04/24/18 19:41 Active IV Insertion STAT Care 04/24/18 19:41 Active Oxygen-ED Only NASAL CANNULA 2 lpm Care 04/24/18 19:41 Active Pulse Oximetry (ED) STAT Care 04/24/18 19:41 Active CHEST 2 VIEWS (PA AND LAT) Stat Exams 04/24/18 19:41 Taken CBC W DIFF Stat Lab 04/24/18 19:50 Completed CMP Stat Lab 04/24/18 19:50 Completed Lactic Acid Stat Lab 04/24/18 19:41 Results NT PRO BNP Stat Lab 04/24/18 19:50 Completed TROPONIN Q3H Lab 04/24/18 19:50 Completed TROPONIN Q3H Lab 04/24/18 22:45 Ordered TROPONIN Q3H Lab 04/25/18 01:45 Ordered TROPONIN Q3H Lab 04/25/18 04:45 Ordered TROPONIN Q3H Lab 04/25/18 07:45 Ordered Peak Expiratory Flow Rate ONCE RT 04/24/18 20:15 Active Respiratory Nebulizer STAT RT 04/24/18 19:42 Completed Respiratory Therapy Assessment DAILY RT 04/24/18 20:15 Active Medication Summary Discontinued Medications Generic Name Dose Route Start Last Admin Trade Name Freq PRN Reason Stop Dose Admin Albuterol/Ipratropium 3 ml 04/24/18 19:41 04/24/18 20:11 Duoneb 0.5-3 Mg/3 Ml Neb IH 04/24/18 19:42 3 ml STAT ONE Administration Albuterol/Ipratropium Confirm 04/24/18 20:10 Duoneb 0.5-3 Mg/3 Ml Neb Administered 04/24/18 20:11 Dose 3 ml IH .STK-MED ONE Methylprednisolone Sodium Succinate 125 mg 04/24/18 19:41 04/24/18 19:49 Solu-Medrol 125 Mg IV 04/24/18 19:42 125 mg STAT ONE Administration Methylprednisolone Sodium Succinate Confirm 04/24/18 19:45 Solu-Medrol 125 Mg Administered 04/24/18 19:46 Dose 125 mg .ROUTE .STK-MED ONE Lab/Rad Data: Laboratory Result Diagrams 04/24/18 19:50 04/24/18 19:50 Laboratory Results 04/24/18 04/24/18 04/24/18 Range/Units 20:00 19:50 19:50 WBC (4.0-10.5) K/mm3 RBC (4.1-5.6) M/mm3 Hgb (12.5-18.0) gm/dl Hct (42-50) % MCV (78-100) fl MCH (26-32) pg MCHC (32-36) g/dl RDW (11.5-14.0) % Plt Count (150-450) K/mm3 MPV (6-9.5) fl Gran % (36.0-66.0) % Eos # (Auto) (0-0.5) Absolute Lymphs (auto) (1.0-4.6) Absolute Monos (auto) (0.0-1.3) Lymphocytes % (24.0-44.0) % Monocytes % (0.0-12.0) % Eosinophils % (0.00-5.0) % Basophils % (0.0-0.4) % Absolute Granulocytes (1.4-6.9) Basophils # (0-0.4) Sodium 138 (137-145) mmol/L Potassium 3.5 (3.5-5.1) mmol/L Chloride 103 (98-107) mmol/L Carbon Dioxide 21 L (22-30) mmol/L Anion Gap 18.5 H (5-15) MEQ/L BUN 12 (9-20) mg/dL Creatinine 0.66 (0.66-1.25) mg/dL Estimated GFR > 60.0 ML/MIN Glucose 112 H (74-106) mg/dL Lactic Acid (0.4-2.0) Calcium 9.2 (8.4-10.2) mg/dL Total Bilirubin 0.40 (0.2-1.3) mg/dL AST 28 (17-59) U/L ALT 18 (0-50) U/L Alkaline Phosphatase 62 (38-126) U/L Troponin I < 0.012 (0.000-0.034) ng/mL NT-Pro-B Natriuret Pep 75.7 (0-900) pg/mL Serum Total Protein 7.6 (6.3-8.2) g/dL Albumin 4.3 (3.5-5.0) g/dL Influenza Type A Ag NEGATIVE (NEGATIVE) Influenza Type B Ag NEGATIVE (NEGATIVE) RSV (PCR) NEGATIVE (Negative) 04/24/18 04/24/18 Range/Units 19:50 19:41 WBC 11.1 H (4.0-10.5) K/mm3 RBC 4.59 (4.1-5.6) M/mm3 Hgb 15.1 (12.5-18.0) gm/dl Hct 45.3 (42-50) % MCV 98.7 (78-100) fl MCH 32.9 H (26-32) pg MCHC 33.3 (32-36) g/dl RDW 12.9 (11.5-14.0) % Plt Count 215 (150-450) K/mm3 MPV 9.3 (6-9.5) fl Gran % 58.3 (36.0-66.0) % Eos # (Auto) 0.26 (0-0.5) Absolute Lymphs (auto) 3.09 (1.0-4.6) Absolute Monos (auto) 1.22 (0.0-1.3) Lymphocytes % 27.9 (24.0-44.0) % Monocytes % 11.0 (0.0-12.0) % Eosinophils % 2.3 (0.00-5.0) % Basophils % 0.5 (0.0-0.4) % Absolute Granulocytes 6.46 (1.4-6.9) Basophils # 0.05 (0-0.4) Sodium (137-145) mmol/L Potassium (3.5-5.1) mmol/L Chloride (98-107) mmol/L Carbon Dioxide (22-30) mmol/L Anion Gap (5-15) MEQ/L BUN (9-20) mg/dL Creatinine (0.66-1.25) mg/dL Estimated GFR ML/MIN Glucose (74-106) mg/dL Lactic Acid 2.0 (0.4-2.0) Calcium (8.4-10.2) mg/dL Total Bilirubin (0.2-1.3) mg/dL AST (17-59) U/L ALT (0-50) U/L Alkaline Phosphatase (38-126) U/L Troponin I (0.000-0.034) ng/mL NT-Pro-B Natriuret Pep (0-900) pg/mL Serum Total Protein (6.3-8.2) g/dL Albumin (3.5-5.0) g/dL Influenza Type A Ag (NEGATIVE) Influenza Type B Ag (NEGATIVE) RSV (PCR) (Negative) - Progress Progress: improved Air Movement: good Progress Note: 04/24/18 21:54 After solumedrol 125 IV and a lee neb, pt is breathing better and wants to go home. Will give rocephin 1 gm IM, pt pulled IV out. Blood Culture(s) Obtained: No Antibiotics given: Yes Counseled pt/family regarding: lab results, diagnosis, need for follow-up, rad results - Departure Time of Disposition: 21:55 Departure Disposition: Home Clinical Impression: COPD exacerbation, Bronchitis Condition: Stable Critical Care Time: No Referrals: KRISTY JIMENEZ MD [Primary Care Provider] - Instructions: Chronic Obstructive Pulmonary Disease Additional Instructions: You have bronchitis and a COPD exacerbation. You were given a DuoNeb breathing treatment, Solu-Medrol 125 mg by IV, and Rocephin 1 g by IM in the ER. Continue to take doxycycline 100 mg 2 times a day for 10 days. Follow-up with your primary medical doctor in 2-3 days. Prescriptions: Doxycycline Hyclate 100 mg [Vibramycin 100 MG] 100 mg PO BID #20 tab
[2018-04-24] MEDS ORDERED: DUONEB 0.5-3 MG/3 ml Neb IH ONE ×2 (19:41→20:10)
[2018-04-24] MEDS ORDERED: solu-MEDROL 125 MG IV ONE (19:41)
[2018-04-24] MEDS ORDERED: solu-MEDROL 125 MG ONE (19:45)
[2018-04-24 20:08] VITALS: BP 117/71
[2018-04-24 20:08] LABS: BASOPHIL % 0.5 % (0.0-0.4); Basophil (Absolute #) 0.05 (0-0.4); Eosinophil % 2.3 % (0.00-5.0); Eosinophil (Absolute #) 0.26 (0-0.5); Granulocyte Absolute (ANC) 6.46 (1.4-6.9); Granulocytes % 58.3 % (36.0-66.0); Hematocrit 45.3 % (42-50); Hemoglobin 15.1 gm/dl (12.5-18.0); Lymphocyte (Absolute #) 3.09 (1.0-4.6); Lymphocytes % 27.9 % (24.0-44.0); Mean Cell Volume 98.7 fl (78-100); Mean Corpuscular Hemoglobin 32.9 pg (26-32); Mean Corpuscular Hgb Concent. 33.3 g/dl (32-36); Mean Platelet Volume 9.3 fl (6-9.5); Monocyte (Absolute #) 1.22 (0.0-1.3); Platelet Count 215 K/mm3 (150-450); Red Blood Count 4.59 M/mm3 (4.1-5.6); Red Cell Distribution Width 12.9 % (11.5-14.0); White Blood Count 11.1 K/mm3 (4.0-10.5)
[2018-04-24 20:40] LABS: ALBUMIN 4.3 g/dL (3.5-5.0); ALKALINE PHOSPHATASE 62 U/L (38-126); ANION GAP 18.5 MEQ/L (5-15); BLOOD UREA NITROGEN 12 mg/dL (9-20); CHLORIDE 103 mmol/L (98-107); Calcium 9.2 mg/dL (8.4-10.2); Carbon Dioxide 21 mmol/L (22-30); Creatinine 1 0.66 mg/dL (0.66-1.25); Glucose 112 mg/dL (74-106); NT PRO BNP 75.7 pg/mL (0-900); Potassium 3.5 mmol/L (3.5-5.1); SGOT/AST 28 U/L (17-59); SGPT/ALT 18 U/L (0-50); SODIUM 138 mmol/L (137-145); Total Protein 7.6 g/dL (6.3-8.2)
[2018-04-24 20:45] LABS: INFLUENZA A NEGATIVE (NEGATIVE); INFLUENZA B NEGATIVE (NEGATIVE); RESPIRATORY SYNCTIAL VIRUS NEGATIVE (Negative)
[2018-04-24 20:52] VITALS: PULSE 82
[2018-04-24] MEDS ORDERED: Rocephin 1000 MG INJ IM ONE (21:56)
[2018-04-24 21:59] VITALS: O2SAT 94
[2018-04-24] MEDS ORDERED: Rocephin 1000 MG INJ ONE (22:05)
--- NOTE | 2018-04-25 08:38 | XRAY ---
Indication: Cough and short of breath. Substance abuse. Comparison: December 07, 2017. PA/lateral chest remains hyperinflated and clear with incidental calcified granulomas. Heart and mediastinal structures within normal limits. Bony thorax intact. Impression: Stable nonacute hyperinflated chest again with evidence for old granulomatous disease.
== END 2018-04-24 22:40 | disposition home or self-care (01) ==
LOC: ED 19:13
DX: J44.1 Chronic obstructive pulmonary disease with (acute) exacerbation (principal); Z79.899 Other long term (current) drug therapy; F17.210 Nicotine dependence, cigarettes, uncomplicated
CPT/HCPCS: 36000; 36415; 71046; 80053; 83605; 83880; 84484; 85025; 87631; 93005; 93041; 94150; 94640; 96372; 96374; 99284; J0696; J2930; A9270-GY

== ENCOUNTER 2018-05-16 20:58 | Emergency (ER) | payer MEDICARE, OTHER ==
[2018-05-16] MEDS ORDERED: TORAdol 30 mg Injection IM ONE (21:28)
[2018-05-16] MEDS ORDERED: BACIGUENT PACKET TP ONE (21:29)
--- NOTE | 2018-05-16 21:34 | ERPHSYRPT ---
- History of Present Illness Time Seen by Provider: 05/16/18 21:23 Source: patient Exam Limitations: no limitations Patient Subjective Stated Complaint: pain in right great toe that began last night, skin tear on right top of hand Triage Nursing Assessment: Pt c/o of right great toe pain that radiates all the way down the toe, mild redness, reports hx of pain in left foot toe, afebrile, vitals wnl, denies any pain at this time, hit hand on car window prior to coming in and has a skin tear on the dorsal side of right hand Physician History: 63-year-old white male with history of COPD, arthritis, fractures. Patient arrives with complaint of right toe pain since yesterday denies injury to it also complains of the skin tear to his right dorsal hand since today. Patient is not having problems moving his hands or his feet.. Past medical history includes COPD, arthritis, fractures Past surgical history negative Social history patient states he drinks a 12 pack of beer a day Timing/Duration: yesterday Severity: moderate Modifying Factors: Improves With: nothing Associated Symptoms: No nausea, No vomiting, No abdominal pain, No shortness of breath, No heartburn, No diaphoresis, No cough, No chills, No chest pain, No fever, No headaches, No loss of appetite, No malaise, No rash, No syncope, No seizure, No weakness Allergies/Adverse Reactions: No Known Drug Allergies Allergy (Verified 05/16/18 21:18) Home Medications: Ipratropium/Albuterol Sulfate [Combivent Inhaler] 14.7 gm IH Q6H PRN PRN [History] Albuterol 2.5 mg/0.5 ml [PROVENTIL Solution 2.5 MG/0.5 ML] 2.5 mg IH Q4H PRN PRN 10/06/17 [History] Budesonide/Formoterol Fumarate [Symbicort 80-4.5 Mcg Inhaler] 6.9 gm IH Q12H [History] Ibuprofen 200 mg [Motrin 200 mg] 800 mg PO BID PRN PRN 10/06/17 [History] Hx Tetanus, Diphtheria Vaccination/Date Given: No Hx Influenza Vaccination/Date Given: Yes (April) Hx Pneumococcal Vaccination/Date Given: No - Review of Systems Constitutional: No Fever, No Chills Eyes: No Symptoms Ears, Nose, & Throat: No Symptoms Respiratory: No Cough, No Dyspnea Cardiac: No Chest Pain, No Edema, No Syncope Abdominal/Gastrointestinal: No Abdominal Pain, No Nausea, No Vomiting, No Diarrhea Genitourinary Symptoms: No Dysuria Musculoskeletal: Other (pain right great toe since yesterday) Skin: Other (skin tear right dorsal hand, mild erythema right medial great toe) Neurological: No Dizziness, No Focal Weakness, No Sensory Changes Psychological: No Symptoms Endocrine: No Symptoms All Other Systems: Reviewed and Negative - Past Medical History Pertinent Past Medical History: Yes Neurological History: No Pertinent History ENT History: No Pertinent History Cardiac History: No Pertinent History Respiratory History: COPD, Other Endocrine Medical History: No Pertinent History Musculoskeletal History: Arthritis GI Medical History: No Pertinent History History: No Pertinent History Psycho-Social History: Other Male Reproductive Disorders: No Pertinent History Other Medical History: few fractures - Past Surgical History Past Surgical History: No Neuro Surgical History: No Pertinent History Cardiac: No Pertinent History Respiratory: No Pertinent History Gastrointestinal: No Pertinent History Genitourinary: No Pertinent History Musculoskeletal: No Pertinent History Male Surgical History: No Pertinent History - Social History Smoking Status: Current every day smoker How long have you smoked: 50 YEARS Exposure to second hand smoke: Yes Alcohol Use: Chronic (daily throughout the day including work time) Drug Use: none Patient Lives Alone: Yes - Nursing Vital Signs Nursing Vital Signs: Initial Vital Signs Temperature 97.5 F 05/16/18 21:06 Pulse Rate 89 05/16/18 21:06 Respiratory Rate 90 H 05/16/18 21:06 Blood Pressure 139/81 05/16/18 21:06 O2 Sat by Pulse Oximetry 93 L 05/16/18 21:06 Pain Scale Pain Intensity 1 - Physical Exam General Appearance: mild distress Eye Exam: PERRL/EOMI, eyes nml inspection Ears, Nose, Throat Exam: normal ENT inspection, TMs normal, pharynx normal, moist mucous membranes Neck Exam: normal inspection, non-tender, supple, full range of motion Respiratory Exam: normal breath sounds, lungs clear, No respiratory distress Cardiovascular Exam: regular rate/rhythm, normal heart sounds, normal peripheral pulses Gastrointestinal/Abdomen Exam: soft, normal bowel sounds, No tenderness, No mass Extremity Exam: normal range of motion, other (right dorsal hand with 2 cm skin tear, right great toe tender distally mild erythema medially, good capillary refill alary refill all toes, ) Neurologic Exam: alert, 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, cooperative, normal mood/affect, nml cerebellar function, nml station & gait, sensation nml, No motor deficits Skin Exam: other (mild erythema right medial great toe, clubbing right great toe nail, 2 cm skin tear right dorsal hand) Lymphatic Exam: adenopathy SpO2 Interpretation: normal (93%) SpO2: 93 Oxygen Delivery: Room Air - Course Nursing assessment & vital signs reviewed: Yes - Radiology Exams Right Foot X-ray Interpretation: Interpreted by me, Negative, No Fracture, No Subluxation Ordered Tests: Active Orders 24 hr Category Date Time Status Splint STAT Care 05/16/18 22:30 Active Wound Care STAT Care 05/16/18 21:29 Active FOOT (MINIMUM 3 VIEWS) Stat Exams 05/16/18 21:45 Taken BMP Stat Lab 05/16/18 21:55 Completed CBC W DIFF Stat Lab 05/16/18 21:55 Completed Uric Acid Stat Lab 05/16/18 21:55 Completed Medication Summary Discontinued Medications Generic Name Dose Route Start Last Admin Trade Name Freq PRN Reason Stop Dose Admin Hydrocodone Bitart/Acetaminophen 1 tab 05/16/18 22:30 05/16/18 22:47 [place] 5/325 Mg PO 05/16/18 22:31 1 tab STAT ONE Administration Bacitracin Zinc 0.9 gm 05/16/18 21:29 05/16/18 21:47 Baciguent Packet TP 05/16/18 21:30 0.9 gm STAT ONE Administration Bacitracin Zinc Confirm 05/16/18 21:46 Baciguent Packet Administered 05/16/18 21:47 Dose 1 gm .ROUTE .STK-MED ONE Cephalexin HCl 500 mg 05/16/18 22:30 05/16/18 22:47 Keflex 250 Mg/5 Ml Susp PO 05/16/18 22:31 Not Given STAT ONE Cephalexin HCl 500 mg 05/16/18 22:46 05/16/18 22:47 Keflex 500 Mg PO 05/16/18 22:47 500 mg STAT ONE Administration Ketorolac Tromethamine 60 mg 05/16/18 21:28 05/16/18 21:47 Toradol 30 Mg Injection IM 05/16/18 21:29 60 mg STAT ONE Administration Ketorolac Tromethamine Confirm 05/16/18 21:46 Toradol 30 Mg Injection Administered 05/16/18 21:47 Dose 60 mg .ROUTE .K-MED ONE Lab/Rad Data: Laboratory Result Diagrams 05/16/18 21:55 05/16/18 21:55 Laboratory Results 05/16/18 05/16/18 05/16/18 Range/Units 21:55 21:55 21:55 WBC 11.5 H (4.0-10.5) K/mm3 RBC 4.57 (4.1-5.6) M/mm3 Hgb 15.3 (12.5-18.0) gm/dl Hct 44.5 (42-50) % MCV 97.4 (78-100) fl MCH 33.5 H (26-32) pg MCHC 34.4 (32-36) g/dl RDW 13.5 (11.5-14.0) % Plt Count 141 L (150-450) K/mm3 MPV 9.3 (6-9.5) fl Gran % 63.1 (36.0-66.0) % Eos # (Auto) 0.71 H (0-0.5) Absolute Lymphs (auto) 2.56 (1.0-4.6) Absolute Monos (auto) 0.88 (0.0-1.3) Lymphocytes % 22.4 L (24.0-44.0) % Monocytes % 7.7 (0.0-12.0) % Eosinophils % 6.2 H (0.00-5.0) % Basophils % 0.6 (0.0-0.4) % Absolute Granulocytes 7.23 H (1.4-6.9) Basophils # 0.07 (0-0.4) Sodium 137 (137-145) mmol/L Potassium 3.7 (3.5-5.1) mmol/L Chloride 101 (98-107) mmol/L Carbon Dioxide 24 (22-30) mmol/L Anion Gap 15.4 H (5-15) MEQ/L BUN 13 (9-20) mg/dL Creatinine 0.76 (0.66-1.25) mg/dL Estimated GFR > 60.0 ML/MIN Glucose 87 (74-106) mg/dL Uric Acid 6.3 (3.5-7.2) mg/dL Calcium 8.8 (8.4-10.2) mg/dL - Progress Progress: unchanged, improved Progress Note: 05/16/18 22:26 Patient's x-ray right foot: No fractures no subluxation uric acid is within normal limits Will place patient on Kefzol 500 mg orally 4 times a day for [address] patient on [place] for pain. Will place patient for postop shoe. 05/16/18 22:49 inspect was reviewed on this patient no recent narcotics - Departure Time of Disposition: 22:27 Departure Disposition: Home Clinical Impression: Pain of right great toe, early cellulitis right great toe, Skin tear of right hand without complication Condition: Fair Critical Care Time: No Referrals: KRISTY JIMENEZ MD [Primary Care Provider] - Additional Instructions: Return home. Keflex as prescribed. [place] as prescribed. Follow-up with your family doctor. Return for acute distress or for severe symptoms. Prescriptions: Cephalexin Mh 500 mg [Keflex 500 mg] 500 mg PO Q6H #28 capsule Hydrocodone/Acetaminophen [[place] 5-325 Tablet] 1 tab PO Q4-6HPRN PRN #10 tablet MDD 6 tablets PRN Reason: Pain
[2018-05-16] MEDS ORDERED: BACIGUENT PACKET ONE (21:46)
[2018-05-16] MEDS ORDERED: TORAdol 30 mg Injection ONE (21:46)
[2018-05-16 22:00] LABS: BASOPHIL % 0.6 % (0.0-0.4); Basophil (Absolute #) 0.07 (0-0.4); Eosinophil % 6.2 % (0.00-5.0); Eosinophil (Absolute #) 0.71 (0-0.5); Granulocyte Absolute (ANC) 7.23 (1.4-6.9); Granulocytes % 63.1 % (36.0-66.0); Hematocrit 44.5 % (42-50); Hemoglobin 15.3 gm/dl (12.5-18.0); Lymphocyte (Absolute #) 2.56 (1.0-4.6); Lymphocytes % 22.4 % (24.0-44.0); Mean Cell Volume 97.4 fl (78-100); Mean Corpuscular Hemoglobin 33.5 pg (26-32); Mean Corpuscular Hgb Concent. 34.4 g/dl (32-36); Mean Platelet Volume 9.3 fl (6-9.5); Monocyte (Absolute #) 0.88 (0.0-1.3); Monocytes % 7.7 % (0.0-12.0); Platelet Count 141 K/mm3 (150-450); Red Blood Count 4.57 M/mm3 (4.1-5.6); Red Cell Distribution Width 13.5 % (11.5-14.0); White Blood Count 11.5 K/mm3 (4.0-10.5)
[2018-05-16 22:19] LABS: ANION GAP 15.4 MEQ/L (5-15); BLOOD UREA NITROGEN 13 mg/dL (9-20); CHLORIDE 101 mmol/L (98-107); Calcium 8.8 mg/dL (8.4-10.2); Carbon Dioxide 24 mmol/L (22-30); Creatinine 1 0.76 mg/dL (0.66-1.25); Glucose 87 mg/dL (74-106); Potassium 3.7 mmol/L (3.5-5.1); SODIUM 137 mmol/L (137-145)
[2018-05-16] MEDS ORDERED: NORCO 5/325 MG PO ONE (22:30)
[2018-05-16] MEDS ORDERED: KEFLEX 250 MG/5 ML SUSP PO ONE (22:30)
[2018-05-16] MEDS ORDERED: KEFLEX 500 MG PO ONE (22:46)
[2018-05-16] MEDS ORDERED: NORCO 5/325 MG ONE (22:46)
[2018-05-16] MEDS ORDERED: KEFLEX 500 MG ONE (22:46)
[2018-05-16 22:52] VITALS: BP 132/84; PULSE 99; O2SAT 94
--- NOTE | 2018-05-17 09:04 | XRAY ---
Indication: 1st toe pain. No known injury. Comparison: None 3 nonweightbearing views of the right foot demonstrates small plantar heel spur. No other bony, articular, or soft tissue abnormalities.
== END 2018-05-16 22:55 | disposition home or self-care (01) ==
LOC: ED 20:58
DX: L03.031 Cellulitis of right toe (principal); M79.674 Pain in right toe(s); S61.411A Laceration without foreign body of right hand, initial encounter; Z79.899 Other long term (current) drug therapy
CPT/HCPCS: 36415; 73630; 80048; 84550; 85025; 96372; 99284; J1885; A9270-GY

== ENCOUNTER 2018-11-04 20:34 | Emergency (ER) | payer MEDICARE, OTHER ==
--- NOTE | 2018-11-04 21:03 | ERPHSYRPT ---
- History of Present Illness Time Seen by Provider: 11/04/18 20:55 Historian: patient Exam Limitations: clinical condition Patient Subjective Stated Complaint: SOB/Abdominal pain Triage Nursing Assessment: Patient brought into ED via EMS and transferred to bed per self. Patient A+O X 3. Patient's skin pink, warm and dry. Patient complains of abdominal pain that radiates to right side intermittent. Patient states he is always SOB and was not in distress only having abdominal pain. Patient denies pain currently. Abdomen soft and round with BS X 4. Lungs diminished A/P mervin. 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 CONSUMES BEER DAILY. DENIES HEMATEMESIS, MELENA, HEMATOCHEZIA AND DIARRHEA. ADMITS TO HAVING CHRONIC DYSPNEA, AND PRODUCTIVE COUGH. Timing/Duration: week(s) (2 WEEKS) Activities at Onset: none Quality: sharpness, stabbing Abdominal Pain Onset Location: epigastric Pain Radiation: chest, back Severity of Pain-Max: severe Severity of Pain-Current: severe Modifying Factors: Improves With: nothing Associated Symptoms: other Previous symptoms: same symptoms as today Allergies/Adverse Reactions: No Known Drug Allergies Allergy (Verified 11/04/18 20:41) Home Medications: Ipratropium/Albuterol Sulfate [Combivent Inhaler] 14.7 gm IH Q6H PRN PRN [History] Albuterol 2.5 mg/0.5 ml [PROVENTIL Solution 2.5 MG/0.5 ML] 2.5 mg IH Q4H PRN PRN 10/06/17 [History] Budesonide/Formoterol Fumarate [Symbicort 80-4.5 Mcg Inhaler] 6.9 gm IH Q12H [History] Ibuprofen 200 mg [Motrin 200 mg] 800 mg PO BID PRN PRN 10/06/17 [History] Hx Tetanus, Diphtheria Vaccination/Date Given: No Hx Influenza Vaccination/Date Given: Yes (April) Hx Pneumococcal Vaccination/Date Given: No Immunizations Up to Date: Yes - Review of Systems Constitutional: No Symptoms Eyes: No Symptoms Ears, Nose, & Throat: No Symptoms Respiratory: Cough, Dyspnea Cardiac: No Symptoms Abdominal/Gastrointestinal: Abdominal Pain, Nausea Genitourinary Symptoms: No Symptoms Musculoskeletal: No Symptoms Skin: No Symptoms Neurological: No Symptoms Psychological: No Symptoms Endocrine: No Symptoms - Past Medical History Pertinent Past Medical History: Yes Neurological History: No Pertinent History ENT History: No Pertinent History Cardiac History: No Pertinent History Respiratory History: COPD, Other Endocrine Medical History: No Pertinent History Musculoskeletal History: Arthritis GI Medical History: No Pertinent History History: No Pertinent History Psycho-Social History: Other Male Reproductive Disorders: No Pertinent History Other Medical History: few fractures - Past Surgical History Past Surgical History: No Neuro Surgical History: No Pertinent History Cardiac: No Pertinent History Respiratory: No Pertinent History Gastrointestinal: No Pertinent History Genitourinary: No Pertinent History Musculoskeletal: No Pertinent History Male Surgical History: No Pertinent History - Social History Smoking Status: Current every day smoker How long have you smoked: 50 YEARS Exposure to second hand smoke: Yes Alcohol Use: Chronic (daily throughout the day including work time) Drug Use: none Patient Lives Alone: Yes - Nursing Vital Signs Nursing Vital Signs: Initial Vital Signs Temperature 97.9 F 11/04/18 20:43 Pulse Rate 85 11/04/18 20:43 Respiratory Rate 18 11/04/18 20:43 Blood Pressure 164/94 11/04/18 20:43 O2 Sat by Pulse Oximetry 99 11/04/18 20:43 Pain Scale Pain Intensity 0 - Physical Exam General Appearance: mild distress Eye Exam: PERRL/EOMI Ears, Nose, Throat Exam: normal ENT inspection Neck Exam: normal inspection Respiratory Exam: diminished breath sounds, other (NO WHEEZES OR RHONCHI) Cardiovascular Exam: regular rate/rhythm, normal heart sounds Gastrointestinal/Abdomen Exam: soft, normal bowel sounds, tenderness (MARKED EPIGASTRIC TENDERNESS) Back Exam: normal inspection, normal range of motion Neurologic Exam: alert, 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, cooperative Skin Exam: normal color, warm SpO2 Interpretation: normal SpO2: 99 - CT Exams Abdomen/Pelvis CT Interpretation: Tele-radiologist Report (EDEMA IN THE JUNCTION OF THE HEAD AND NECK OF THE PANCREAS WITH MILD REGIONAL EDEMA SUGGESTING MILD RADIOGRAPHIC PANCREATITIS VERSUS NEOPLASM) Ordered Tests: Active Orders 24 hr Category Date Time Status EKG-ER Only STAT Care 11/04/18 21:03 Active IV Insertion STAT Care 11/04/18 21:03 Active ABDOMEN AND PELVIS W CONTRAST [CT] Stat Exams 11/04/18 21:04 Taken CHEST 1 VIEW (PORTABLE) Stat Exams 11/04/18 21:04 Taken AMYLASE Stat Lab 11/04/18 21:00 Completed CBC W DIFF Stat Lab 11/04/18 21:00 Completed CMP Stat Lab 11/04/18 21:00 Completed LIPASE Stat Lab 11/04/18 21:00 Completed Lactic Acid Stat Lab 11/04/18 21:20 Completed PROTIME WITH INR Stat Lab 11/04/18 21:00 Completed TROPONIN Q3H Lab 11/04/18 21:00 Completed TROPONIN Q3H Lab 11/05/18 00:15 Ordered TROPONIN Q3H Lab 11/05/18 03:15 Ordered TROPONIN Q3H Lab 11/05/18 06:15 Ordered TROPONIN Q3H Lab 11/05/18 09:15 Ordered UA W/RFX UR CULTURE Stat Lab 11/04/18 21:30 Completed Medication Summary Generic Name Dose Route Start Last Admin Trade Name Freq PRN Reason Stop Dose Admin Sodium Chloride 1,000 mls @ 200 mls/hr 11/04/18 21:15 11/04/18 21:40 Sodium Chloride 0.9% 1000 Ml IV 12/04/18 21:14 200 mls/hr .Q5H ALYSSA Administration Discontinued Medications Generic Name Dose Route Start Last Admin Trade Name Freq PRN Reason Stop Dose Admin Al Hydrox/Mg Hydrox/Simethicone Confirm 11/04/18 21:14 Maalox Es 30 Ml Unit Dose Administered 11/04/18 21:15 Dose 30 ml .ROUTE .STK-MED ONE Lidocaine HCl Confirm 11/04/18 21:14 Xylocaine Hcl Viscous * Administered 11/04/18 21:15 Dose 15 ml .ROUTE .STK-MED ONE Magnesium Hydroxide 45 ml 11/04/18 21:03 11/04/18 21:42 Gi Cocktail 45 Ml (Maalox/Lidocaine) PO 11/04/18 21:04 45 ml STAT ONE Administration Ondansetron HCl 4 mg 11/04/18 21:03 11/04/18 21:42 Zofran 4 Mg/2 Ml Vial IV 11/04/18 21:04 4 mg STAT ONE Administration Ondansetron HCl Confirm 11/04/18 21:14 Zofran 4 Mg/2 Ml Vial Administered 11/04/18 21:15 Dose 4 mg .ROUTE .STK-MED ONE Pantoprazole Sodium 40 mg 11/04/18 21:03 11/04/18 21:45 Protonix 40 Mg Iv IV 11/04/18 21:04 40 mg STAT ONE Administration Lab/Rad Data: Laboratory Result Diagrams 11/04/18 21:00 11/04/18 21:00 Laboratory Results 11/04/18 11/04/18 11/04/18 Range/Units 21:30 21:20 21:00 WBC (4.0-10.5) K/mm3 RBC (4.1-5.6) M/mm3 Hgb (12.5-18.0) gm/dl Hct (42-50) % MCV (78-100) fl MCH (26-32) pg MCHC (32-36) g/dl RDW (11.5-14.0) % Plt Count (150-450) K/mm3 MPV (6-9.5) fl Gran % (36.0-66.0) % Eos # (Auto) (0-0.5) Absolute Lymphs (auto) (1.0-4.6) Absolute Monos (auto) (0.0-1.3) Lymphocytes % (24.0-44.0) % Monocytes % (0.0-12.0) % Eosinophils % (0.00-5.0) % Basophils % (0.0-0.4) % Absolute Granulocytes (1.4-6.9) Basophils # (0-0.4) PT (8.83-12.87) SECONDS INR (0.8-3.0) Sodium (137-145) mmol/L Potassium (3.5-5.1) mmol/L Chloride (98-107) mmol/L Carbon Dioxide (22-30) mmol/L Anion Gap (5-15) MEQ/L BUN (9-20) mg/dL Creatinine (0.66-1.25) mg/dL Estimated GFR ML/MIN Glucose (74-106) mg/dL Lactic Acid 1.1 (0.4-2.0) Calcium (8.4-10.2) mg/dL Total Bilirubin (0.2-1.3) mg/dL AST (17-59) U/L ALT (0-50) U/L Alkaline Phosphatase (38-126) U/L Troponin I < 0.012 (0.000-0.034) ng/mL Serum Total Protein (6.3-8.2) g/dL Albumin (3.5-5.0) g/dL Amylase (30-110) U/L Lipase (23-300) U/L Urine Color YELLOW (YELLOW) Urine Appearance SLIGHTLY CLOUDY (CLEAR) Urine pH 5.0 (5-6) Ur Specific [place] 1.026 (1.005-1.025) Urine Protein NEGATIVE (Negative) Urine Ketones TRACE (NEGATIVE) Urine Blood NEGATIVE (0-5) Luther/ul Urine Nitrite NEGATIVE (NEGATIVE) Urine Bilirubin NEGATIVE (NEGATIVE) Urine Urobilinogen 2 (0-1) mg/dL Ur Leukocyte Esterase NEGATIVE (NEGATIVE) Urine WBC (Auto) 3-5 (0-5) /HPF Urine RBC (Auto) 0-2 (0-2) /HPF U Epithel Cells (Auto) FEW (FEW) /HPF Urine Mucus (Auto) MANY (NEGATIVE) /HPF Urine Culture Reflexed NO (NO) Urine Glucose NEGATIVE (NEGATIVE) mg/dL 11/04/18 11/04/18 11/04/18 Range/Units 21:00 21:00 21:00 WBC 10.2 (4.0-10.5) K/mm3 RBC 5.06 (4.1-5.6) M/mm3 Hgb 16.6 (12.5-18.0) gm/dl Hct 49.5 (42-50) % MCV 97.8 (78-100) fl MCH 32.8 H (26-32) pg MCHC 33.5 (32-36) g/dl RDW 13.1 (11.5-14.0) % Plt Count 212 (150-450) K/mm3 MPV 10.1 H (6-9.5) fl Gran % 64.6 (36.0-66.0) % Eos # (Auto) 0.33 (0-0.5) Absolute Lymphs (auto) 2.33 (1.0-4.6) Absolute Monos (auto) 0.92 (0.0-1.3) Lymphocytes % 22.8 L (24.0-44.0) % Monocytes % 9.0 (0.0-12.0) % Eosinophils % 3.2 (0.00-5.0) % Basophils % 0.4 (0.0-0.4) % Absolute Granulocytes 6.60 (1.4-6.9) Basophils # 0.04 (0-0.4) PT 11.5 (8.83-12.87) SECONDS INR 1.02 (0.8-3.0) Sodium 137 (137-145) mmol/L Potassium 4.2 (3.5-5.1) mmol/L Chloride 98 (98-107) mmol/L Carbon Dioxide 29 (22-30) mmol/L Anion Gap 14.3 (5-15) MEQ/L BUN 23 H (9-20) mg/dL Creatinine 0.91 (0.66-1.25) mg/dL Estimated GFR > 60.0 ML/MIN Glucose 116 H (74-106) mg/dL Lactic Acid (0.4-2.0) Calcium 10.1 (8.4-10.2) mg/dL Total Bilirubin 0.50 (0.2-1.3) mg/dL AST 24 (17-59) U/L ALT 17 (0-50) U/L Alkaline Phosphatase 64 (38-126) U/L Troponin I (0.000-0.034) ng/mL Serum Total Protein 7.6 (6.3-8.2) g/dL Albumin 4.3 (3.5-5.0) g/dL Amylase 90 (30-110) U/L Lipase 134 (23-300) U/L Urine Color (YELLOW) Urine Appearance (CLEAR) Urine pH (5-6) Ur Specific [place] (1.005-1.025) Urine Protein (Negative) Urine Ketones (NEGATIVE) Urine Blood (0-5) Luther/ul Urine Nitrite (NEGATIVE) Urine Bilirubin (NEGATIVE) Urine Urobilinogen (0-1) mg/dL Ur Leukocyte Esterase (NEGATIVE) Urine WBC (Auto) (0-5) /HPF Urine RBC (Auto) (0-2) /HPF U Epithel Cells (Auto) (FEW) /HPF Urine Mucus (Auto) (NEGATIVE) /HPF Urine Culture Reflexed (NO) Urine Glucose (NEGATIVE) mg/dL - Progress Progress: improved Progress Note: 11/04/18 21:41 IV NORMAL SALINE 200ML/HR, GI COCKTAIL ORALLY, PROTONIX 40MG IVPB, ZOFRAN 4MG IV 11/04/18 23:43 STATES HIS PAIN RESOLVED AFTER GI COCKTAIL Counseled pt/family regarding: lab results, diagnosis, need for follow-up, rad results - Departure Departure Disposition: Home Clinical Impression: CHRONIC PANCREATITIS Condition: Stable Critical Care Time: No Referrals: KRISTY JIMENEZ MD [Primary Care Provider] - Additional Instructions: PEPCID 20MG TWICE DAILY FOR 4 WEEKS. FOLLOWUP WITH YOUR PRIMARY CARE PROVIDER IN 1 WEEK. AVOID DRINKING ALCOHOL. RETURN TO EMERGENCY ROOM FOR INCREASING PAIN. Prescriptions: Famotidine 20 mg [Pepcid 20 MG] 20 mg PO BID #60 tablet
[2018-11-04] MEDS ORDERED: Sodium Chloride 0.9% 1000 ML 1,000 ML ONE (21:14)
[2018-11-04] MEDS ORDERED: MAALOX ES 30 ML UNIT DOSE ONE (21:14)
[2018-11-04] MEDS ORDERED: XYLOCAINE HCl Viscous ONE (21:14)
[2018-11-04] MEDS ORDERED: Zofran 4 MG/2 ML VIAL ONE (21:14)
[2018-11-04 21:15] LABS: BASOPHIL % 0.4 % (0.0-0.4); Basophil (Absolute #) 0.04 (0-0.4); Eosinophil % 3.2 % (0.00-5.0); Eosinophil (Absolute #) 0.33 (0-0.5); Granulocytes % 64.6 % (36.0-66.0); Hematocrit 49.5 % (42-50); Hemoglobin 16.6 gm/dl (12.5-18.0); Lymphocyte (Absolute #) 2.33 (1.0-4.6); Lymphocytes % 22.8 % (24.0-44.0); Mean Cell Volume 97.8 fl (78-100); Mean Corpuscular Hemoglobin 32.8 pg (26-32); Mean Corpuscular Hgb Concent. 33.5 g/dl (32-36); Mean Platelet Volume 10.1 fl (6-9.5); Monocyte (Absolute #) 0.92 (0.0-1.3); Platelet Count 212 K/mm3 (150-450); Red Blood Count 5.06 M/mm3 (4.1-5.6); Red Cell Distribution Width 13.1 % (11.5-14.0); White Blood Count 10.2 K/mm3 (4.0-10.5)
[2018-11-04 21:16] LABS: INR 1.02 (0.8-3.0); PROTIME 11.5 SECONDS (8.83-12.87)
[2018-11-04 21:24] LABS: ALBUMIN 4.3 g/dL (3.5-5.0); ALKALINE PHOSPHATASE 64 U/L (38-126); AMYLASE 90 U/L (30-110); ANION GAP 14.3 MEQ/L (5-15); BLOOD UREA NITROGEN 23 mg/dL (9-20); CHLORIDE 98 mmol/L (98-107); Calcium 10.1 mg/dL (8.4-10.2); Carbon Dioxide 29 mmol/L (22-30); Creatinine 1 0.91 mg/dL (0.66-1.25); Glucose 116 mg/dL (74-106); Potassium 4.2 mmol/L (3.5-5.1); SGOT/AST 24 U/L (17-59); SGPT/ALT 17 U/L (0-50); SODIUM 137 mmol/L (137-145); Total Protein 7.6 g/dL (6.3-8.2)
[2018-11-04 21:36] LABS: Appearance SLIGHTLY CLOUDY (CLEAR); Bilirubin NEGATIVE (NEGATIVE); Blood NEGATIVE Ery/ul (0-5); Epithelial Cells FEW /HPF (FEW); Glucose NEGATIVE (NEGATIVE); Ketones TRACE (NEGATIVE); Leukocyte Esterase NEGATIVE (NEGATIVE); Mucus MANY /HPF (NEGATIVE); Nitrite NEGATIVE (NEGATIVE); Protein,Urine Dip NEGATIVE (Negative); RBC 0-2 /HPF (0-2); Specific Gravity 1.026 (1.005-1.025); Urobilinogen 2 mg/dL (0-1)
[2018-11-04] MEDS: Sodium Chloride 0.9% 1000 ML 1,000 ML IV SCH (21:40)
[2018-11-04] MEDS: GI COCKTAIL 45 ML (Maalox/Lidocaine) PO ONE (21:42)
[2018-11-04] MEDS: Zofran 4 MG/2 ML VIAL IV ONE (21:42)
[2018-11-04] MEDS: PROTONIX 40 MG IV IV ONE (21:45)
[2018-11-04 22:31] VITALS: BP 145/86; PULSE 79
[2018-11-04 23:41] VITALS: O2SAT 99
--- NOTE | 2018-11-05 08:52 | XRAY ---
Indication: Epigastric and right abdominal pain. COPD. Multiple contiguous axial images obtained through the abdomen and pelvis using 80 cc Isovue 370 contrast only. Comparison: None Lung bases hyperinflated with minimal bibasilar fibrosis/scarring. No a treated or effusion. Heart is not enlarged. Noncontrasted stomach and bowel loops appear nonobstructed. Normal appendix. There is mild diffuse scattered colonic fecal debris throughout. There is also mild rectal impaction. Head of the pancreas demonstrates minimal hazy margins. Mild/early pancreatitis or for that matter malignancy not completely excluded in the right clinical setting. No free fluid/air. Remaining liver, gallbladder, pancreas, spleen, adrenal glands, kidneys, ureters, and bladder appear unremarkable. Mild aortoiliac calcifications. No AAA or pathologic retroperitoneal lymphadenopathy. Osseous structures intact with moderate degenerative changes of the lower lumbar spine and healing left 10 rib fracture. No ventral or inguinal hernias. Impression: 1. Pancreatic head hazy margins. Rule out pancreatitis versus malignancy. 2. Fecal stasis with mild rectal impaction. 3. Remaining CT abdomen/pelvis with contrast exam is negative. Comment: Preliminary interpretation was made by [facility]. No discrepancy. CT DI 9.21
--- NOTE | 2018-11-05 08:54 | XRAY ---
Indication: Short of breath. COPD. Comparison: December 06, 2017. Portable apical lordotic chest again hyperinflated and clear with a few incidental calcified granulomas. Heart is not enlarged. Bony thorax again demonstrates mild degenerative changes with new healing left 10 rib fracture.
== END 2018-11-05 00:28 | disposition home or self-care (01) ==
LOC: ED 20:34
DX: K86.1 Other chronic pancreatitis (principal); J44.9 Chronic obstructive pulmonary disease, unspecified; M19.90 Unspecified osteoarthritis, unspecified site; Z72.0 Tobacco use; Z79.899 Other long term (current) drug therapy
CPT/HCPCS: 36000; 36415; 71045; 74177; 80053; 81001; 82150; 83605; 83690; 84484; 85025; 85610; 93005; 96360; 96374; 96375; 99284; J2405; A9270-GY

== ENCOUNTER 2019-01-26 22:22 | Emergency (ER) | payer OTHER, MEDICARE ==
[2019-01-26] MEDS ORDERED: Hydromorphone 1 mg/ml Ampule IV ONE (23:03)
[2019-01-26] MEDS ORDERED: Pepcid 20 MG VIAL IV ONE ×2 (23:03→23:10)
[2019-01-26] MEDS ORDERED: Sodium Chloride 0.9% 1000 ML 1,000 ML IV STA (23:03)
[2019-01-26] MEDS ORDERED: Zofran 4 MG/2 ML VIAL IV ONE (23:03)
--- NOTE | 2019-01-26 23:08 | ERPHSYRPT ---
- History of Present Illness Time Seen by Provider: 01/26/19 22:50 Historian: patient Exam Limitations: no limitations Patient Subjective Stated Complaint: Abdominal pain Triage Nursing Assessment: Patient brought into ED via EMS and transferred to bed with assist of 2. Patient A+ O X3. Patient's skin pink, warm and dry. Patient complains of abdominal pain intermittent cramping 2/10. Patient complains of pain for 3 days. Patient's abdomen flat with BS X 4. Physician History: Mid epigastric abdominal pain for 3 days. Patient has a history of pancreatitis and drinks alcohol. Timing/Duration: day(s) (3) Activities at Onset: none Quality: aching, stabbing Abdominal Pain Onset Location: epigastric Pain Radiation: chest Severity of Pain-Max: severe Severity of Pain-Current: severe Modifying Factors: Worsens With: breathing, eating, movement, palpation, position Associated Symptoms: nausea, No back, No chest pain, No diaphoresis, No diarrhea , No fever/chills, No fatigue, No heartburn, No loss of appetite, No neck pain, No rash, No syncope, No vomiting, No weakness Previous symptoms: same symptoms as today (diagnosed with pancreatitis in the past) Allergies/Adverse Reactions: No Known Drug Allergies Allergy (Verified 11/04/18 20:41) Home Medications: Ipratropium/Albuterol Sulfate [Combivent Inhaler] 14.7 gm IH Q6H PRN PRN [History] Albuterol 2.5 mg/0.5 ml [PROVENTIL Solution 2.5 MG/0.5 ML] 2.5 mg IH Q4H PRN PRN 10/06/17 [History] Budesonide/Formoterol Fumarate [Symbicort 80-4.5 Mcg Inhaler] 6.9 gm IH Q12H [History] Ibuprofen 200 mg [Motrin 200 mg] 800 mg PO BID PRN PRN 10/06/17 [History] Hx Tetanus, Diphtheria Vaccination/Date Given: No Hx Influenza Vaccination/Date Given: Yes (April) Hx Pneumococcal Vaccination/Date Given: No Immunizations Up to Date: Yes - Review of Systems Constitutional: No Fever, No Chills Eyes: No Discharge, No Eye Pain, No Vision Changes Ears, Nose, & Throat: No Throat Pain, No Throat Swelling Respiratory: No Cough, No Dyspnea Cardiac: No Chest Pain, No Edema, No Syncope Abdominal/Gastrointestinal: Abdominal Pain, Nausea, No Vomiting, No Diarrhea, No Melena Genitourinary Symptoms: No Dysuria, No Hematuria, No Flank Pain Musculoskeletal: No Back Pain, No Neck Pain Skin: No Rash Neurological: No Dizziness, No Focal Weakness, No Sensory Changes Psychological: No Symptoms Endocrine: No Symptoms Hematologic/Lymphatic: No Easy Bleeding, No Easy Bruising All Other Systems: Reviewed and Negative - Past Medical History Pertinent Past Medical History: Yes Neurological History: No Pertinent History ENT History: No Pertinent History Cardiac History: No Pertinent History Respiratory History: COPD, Other Endocrine Medical History: No Pertinent History Musculoskeletal History: Arthritis GI Medical History: No Pertinent History History: No Pertinent History Psycho-Social History: Other Male Reproductive Disorders: No Pertinent History Other Medical History: few fractures - Past Surgical History Past Surgical History: No Neuro Surgical History: No Pertinent History Cardiac: No Pertinent History Respiratory: No Pertinent History Gastrointestinal: No Pertinent History Genitourinary: No Pertinent History Musculoskeletal: No Pertinent History Male Surgical History: No Pertinent History - Social History Smoking Status: Current every day smoker How long have you smoked: 50 YEARS Exposure to second hand smoke: Yes Alcohol Use: Chronic (daily throughout the day including work time) Drug Use: none Patient Lives Alone: Yes - Nursing Vital Signs Nursing Vital Signs: Initial Vital Signs Temperature 98.0 F 01/26/19 22:26 Pulse Rate 80 01/26/19 22:26 Respiratory Rate 18 01/26/19 22:26 Blood Pressure 149/84 01/26/19 22:26 O2 Sat by Pulse Oximetry 93 L 01/26/19 22:26 Pain Scale Pain Intensity 0 - Physical Exam General Appearance: no apparent distress, alert Eye Exam: PERRL/EOMI, eyes nml inspection, No scleral icterus Ears, Nose, Throat Exam: normal ENT inspection, pharynx normal, moist mucous membranes Neck Exam: normal inspection, non-tender, supple, full range of motion, No meningismus, No Brudzinski, No Kernig's Respiratory Exam: normal breath sounds, lungs clear, No respiratory distress Cardiovascular Exam: regular rate/rhythm, normal heart sounds, capillary refill <2 sec Gastrointestinal/Abdomen Exam: soft, No tenderness, No mass Back Exam: normal inspection, normal range of motion, No CVA tenderness, No vertebral tenderness Extremity Exam: normal inspection, normal range of motion, pelvis stable Neurologic Exam: alert, 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, cooperative, admin prog coord II-XII nml as tested, normal mood/affect, sensation nml, No motor deficits Skin Exam: normal color, warm, dry, No petechiae, No cyanosis SpO2 Interpretation: normal SpO2: 93 O2 Delivery: Room Air - Course Nursing assessment & vital signs reviewed: Yes EKG Interpreted by Me: RATE (75), Sinus Rhythm, NORMAL AXIS, NORMAL INTERVALS, NORMAL QRS, NORMAL ST-T, Other (negative change in comparison to 11/04/2018) - CT Exams Abdomen/Pelvis CT Interpretation: Tele-radiologist Report, Other (pper radiologist interpretation: Gastric wall thickening is nonspecific, but could correlate a gastritis and appropriate clinical setting. Normal liver, no mass. Right middle lobe scarring with mild posterior atelectasis the lungs. Normal gallbladder and bile ducts with no ductal dilatation. Pancreas normal with no ductal dilation. Spleen normal hepatomegaly. Adrenal normal no mass. Kidney ureter normal with no hydronephrosis. The appendix no evidence of appendicitis. No free air or significant collection in the intraperitoneal space. Collateral veins and in abdomen. Unremarkable lymph nodes with no enlarged lymph nodes.unremarkable bladder and productive organs. No acute fractures and the bones. Soft tissues unremarkable. Moderate amount of stool throughout the colon.) Ordered Tests: Active Orders 24 hr Category Date Time Status EKG-ER Only STAT Care 01/26/19 23:03 Active IV Insertion STAT Care 01/26/19 23:09 Active NPO (ED) STAT Care 01/26/19 23:03 Active Oxygen-ED Only Nasal Cannula 2 lpm Care 01/26/19 23:18 Active ABDOMEN AND PELVIS W CONTRAST [CT] Stat Exams 01/26/19 23:04 Taken AMYLASE Stat Lab 01/26/19 23:32 Completed CBC W DIFF Stat Lab 01/26/19 23:32 Completed CMP Stat Lab 01/26/19 23:32 Completed LIPASE Stat Lab 01/26/19 23:32 Completed Lactic Acid Stat Lab 01/26/19 23:25 Completed TROPONIN Q3H Lab 01/26/19 23:32 Completed TROPONIN Q3H Lab 01/27/19 02:15 Ordered TROPONIN Q3H Lab 01/27/19 05:15 Ordered TROPONIN Q3H Lab 01/27/19 08:15 Ordered TROPONIN Q3H Lab 01/27/19 11:15 Ordered UA W/RFX UR CULTURE Stat Lab 01/26/19 23:16 Completed Medication Summary Discontinued Medications Generic Name Dose Route Start Last Admin Trade Name Erin PRN Reason Stop Dose Admin Famotidine 20 mg 01/26/19 23:03 01/26/19 23:14 Pepcid 20 Mg Vial IV 01/26/19 23:04 20 mg STAT ONE Administration Famotidine Confirm 01/26/19 23:10 Pepcid 20 Mg Vial Administered 01/26/19 23:11 Dose 20 mg IV .STK-MED ONE Hydromorphone HCl 1 mg 01/26/19 23:03 01/26/19 23:14 Hydromorphone 1 Mg/Ml Ampule IV 01/26/19 23:04 1 mg STAT ONE Administration Hydromorphone HCl Confirm 01/26/19 23:10 Hydromorphone 1 Mg/Ml Ampule Administered 01/26/19 23:11 Dose 1 mg .ROUTE .STK-MED ONE Sodium Chloride 1,000 mls @ 999 mls/hr 01/26/19 23:03 01/27/19 00:15 Sodium Chloride 0.9% 1000 Ml IV 01/27/19 00:03 Infused .Q1H1M STA Infusion Sodium Chloride Confirm 01/26/19 23:10 Sodium Chloride 0.9% 1000 Ml Administered 01/26/19 23:11 Dose 1,000 mls @ ud .ROUTE .STK-MED ONE Ondansetron HCl 4 mg 01/26/19 23:03 01/26/19 23:14 Zofran 4 Mg/2 Ml Vial IV 01/26/19 23:04 4 mg STAT ONE Administration Ondansetron HCl Confirm 01/26/19 23:10 Zofran 4 Mg/2 Ml Vial Administered 01/26/19 23:11 Dose 4 mg .ROUTE .STK-MED ONE Lab/Rad Data: Laboratory Result Diagrams 01/26/19 23:32 01/26/19 23:32 Laboratory Results 01/26/19 01/26/19 01/26/19 Range/Units 23:32 23:32 23:32 WBC 8.3 (4.0-10.5) K/mm3 RBC 4.73 (4.1-5.6) M/mm3 Hgb 15.7 (12.5-18.0) gm/dl Hct 47.1 (42-50) % MCV 99.6 (78-100) fl MCH 33.2 H (26-32) pg MCHC 33.3 (32-36) g/dl RDW 14.1 H (11.5-14.0) % Plt Count 170 (150-450) K/mm3 MPV 9.8 H (6-9.5) fl Gran % 77.1 H (36.0-66.0) % Eos # (Auto) 0.20 (0-0.5) Absolute Lymphs (auto) 1.15 (1.0-4.6) Absolute Monos (auto) 0.51 (0.0-1.3) Lymphocytes % 13.9 L (24.0-44.0) % Monocytes % 6.2 (0.0-12.0) % Eosinophils % 2.4 (0.00-5.0) % Basophils % 0.4 (0.0-0.4) % Absolute Granulocytes 6.38 (1.4-6.9) Basophils # 0.03 (0-0.4) Sodium 139 (137-145) mmol/L Potassium 4.7 (3.5-5.1) mmol/L Chloride 102 (98-107) mmol/L Carbon Dioxide 26 (22-30) mmol/L Anion Gap 14.7 (5-15) MEQ/L BUN 20 (9-20) mg/dL Creatinine 0.88 (0.66-1.25) mg/dL Estimated GFR > 60.0 ML/MIN Glucose 113 H (74-106) mg/dL Lactic Acid (0.4-2.0) Calcium 9.8 (8.4-10.2) mg/dL Total Bilirubin 0.70 (0.2-1.3) mg/dL AST 28 (17-59) U/L ALT 19 (0-50) U/L Alkaline Phosphatase 58 (38-126) U/L Troponin I < 0.012 (0.000-0.034) ng/mL Serum Total Protein 7.7 (6.3-8.2) g/dL Albumin 4.6 (3.5-5.0) g/dL Amylase 87 (30-110) U/L Lipase 109 (23-300) U/L Urine Color (YELLOW) Urine Appearance (CLEAR) Urine pH (5-6) Ur Specific [place] (1.005-1.025) Urine Protein (Negative) Urine Ketones (NEGATIVE) Urine Blood (0-5) Luther/ul Urine Nitrite (NEGATIVE) Urine Bilirubin (NEGATIVE) Urine Urobilinogen (0-1) mg/dL Ur Leukocyte Esterase (NEGATIVE) Urine WBC (Auto) (0-5) /HPF Urine RBC (Auto) (0-2) /HPF U Epithel Cells (Auto) (FEW) /HPF Urine Bacteria (Auto) (NEGATIVE) /HPF Urine Mucus (Auto) (NEGATIVE) /HPF Urine Culture Reflexed (NO) Urine Glucose (NEGATIVE) mg/dL 01/26/19 01/26/19 Range/Units 23:25 23:16 WBC (4.0-10.5) K/mm3 RBC (4.1-5.6) M/mm3 Hgb (12.5-18.0) gm/dl Hct (42-50) % MCV (78-100) fl MCH (26-32) pg MCHC (32-36) g/dl RDW (11.5-14.0) % Plt Count (150-450) K/mm3 MPV (6-9.5) fl Gran % (36.0-66.0) % Eos # (Auto) (0-0.5) Absolute Lymphs (auto) (1.0-4.6) Absolute Monos (auto) (0.0-1.3) Lymphocytes % (24.0-44.0) % Monocytes % (0.0-12.0) % Eosinophils % (0.00-5.0) % Basophils % (0.0-0.4) % Absolute Granulocytes (1.4-6.9) Basophils # (0-0.4) Sodium (137-145) mmol/L Potassium (3.5-5.1) mmol/L Chloride (98-107) mmol/L Carbon Dioxide (22-30) mmol/L Anion Gap (5-15) MEQ/L BUN (9-20) mg/dL Creatinine (0.66-1.25) mg/dL Estimated GFR ML/MIN Glucose (74-106) mg/dL Lactic Acid 1.0 (0.4-2.0) Calcium (8.4-10.2) mg/dL Total Bilirubin (0.2-1.3) mg/dL AST (17-59) U/L ALT (0-50) U/L Alkaline Phosphatase (38-126) U/L Troponin I (0.000-0.034) ng/mL Serum Total Protein (6.3-8.2) g/dL Albumin (3.5-5.0) g/dL Amylase (30-110) U/L Lipase (23-300) U/L Urine Color YELLOW (YELLOW) Urine Appearance CLEAR (CLEAR) Urine pH 5.0 (5-6) Ur Specific [place] 1.012 (1.005-1.025) Urine Protein NEGATIVE (Negative) Urine Ketones SMALL (NEGATIVE) Urine Blood SMALL (0-5) Luther/ul Urine Nitrite NEGATIVE (NEGATIVE) Urine Bilirubin NEGATIVE (NEGATIVE) Urine Urobilinogen NEGATIVE (0-1) mg/dL Ur Leukocyte Esterase NEGATIVE (NEGATIVE) Urine WBC (Auto) NONE (0-5) /HPF Urine RBC (Auto) NONE (0-2) /HPF U Epithel Cells (Auto) NONE (FEW) /HPF Urine Bacteria (Auto) NONE (NEGATIVE) /HPF Urine Mucus (Auto) SLIGHT (NEGATIVE) /HPF Urine Culture Reflexed NO (NO) Urine Glucose NEGATIVE (NEGATIVE) mg/dL - Progress Progress: improved, re-examined Progress Note: 01/27/19 01:06 Pain resolved. No abdominal pain on repeat examination. With normal labs including a negative troponin and unchanged EKG from previous visit, and negative CT scan for any acute issues requiring inpatient admission or immediate surgical evaluation, patient will be discharged home with PPI and continue outpatient management. Counseled pt/family regarding: drug and/or alcohol abuse, lab results, diagnosis , need for follow-up, rad results - Departure Departure Disposition: Home, Extended Care Facility Clinical Impression: Epigastric abdominal pain of unknown etiology, Elevated blood pressure reading without diagnosis of hypertension Condition: Good Critical Care Time: No Referrals: KRISTY JIMENEZ MD [Primary Care Provider] - 01/27/19 CONSTANZA BELLE MD [ASSOCIATE STAFF] - 01/27/19 (General Surgeon for your reference) Instructions: Acute Abdomen (Belly Pain), Adult (DC), Gastritis (DC), DASH Diet Additional Instructions: Followup with your doctor or the Gen. surgery referral on 01/27/2019 to continue the evaluation of your symptoms as you may need an EGD to take a look at your stomach. Return immediately back to the return of any worsening pain, any fever , new vomiting blood, new black stools, worsening abdominal pain, new back pain , or any other concerning signs or symptoms that were not present on today's murmurs were for immediate reevaluation in the emergency department. Prescriptions: Omeprazole 40 mg PO DAILY #14 capsule.
[2019-01-26] MEDS ORDERED: Hydromorphone 1 mg/ml Ampule ONE (23:10)
[2019-01-26] MEDS ORDERED: Zofran 4 MG/2 ML VIAL ONE (23:10)
[2019-01-26] MEDS ORDERED: Sodium Chloride 0.9% 1000 ML 1,000 ML ONE (23:10)
[2019-01-26 23:22] LABS: Appearance CLEAR (CLEAR); Bilirubin NEGATIVE (NEGATIVE); Blood SMALL Ery/ul (0-5); Glucose NEGATIVE (NEGATIVE); Ketones SMALL (NEGATIVE); Leukocyte Esterase NEGATIVE (NEGATIVE); Mucus SLIGHT /HPF (NEGATIVE); Nitrite NEGATIVE (NEGATIVE); Protein,Urine Dip NEGATIVE (Negative); Specific Gravity 1.012 (1.005-1.025); Urobilinogen NEGATIVE mg/dL (0-1)
[2019-01-26 23:32] LABS: BASOPHIL % 0.4 % (0.0-0.4); Basophil (Absolute #) 0.03 (0-0.4); Eosinophil % 2.4 % (0.00-5.0); Granulocyte Absolute (ANC) 6.38 (1.4-6.9); Granulocytes % 77.1 % (36.0-66.0); Hematocrit 47.1 % (42-50); Hemoglobin 15.7 gm/dl (12.5-18.0); Lymphocyte (Absolute #) 1.15 (1.0-4.6); Lymphocytes % 13.9 % (24.0-44.0); Mean Cell Volume 99.6 fl (78-100); Mean Corpuscular Hemoglobin 33.2 pg (26-32); Mean Corpuscular Hgb Concent. 33.3 g/dl (32-36); Mean Platelet Volume 9.8 fl (6-9.5); Monocyte (Absolute #) 0.51 (0.0-1.3); Monocytes % 6.2 % (0.0-12.0); Platelet Count 170 K/mm3 (150-450); Red Blood Count 4.73 M/mm3 (4.1-5.6); Red Cell Distribution Width 14.1 % (11.5-14.0); White Blood Count 8.3 K/mm3 (4.0-10.5)
[2019-01-26 23:43] LABS: ALBUMIN 4.6 g/dL (3.5-5.0); ALKALINE PHOSPHATASE 58 U/L (38-126); AMYLASE 87 U/L (30-110); ANION GAP 14.7 MEQ/L (5-15); BLOOD UREA NITROGEN 20 mg/dL (9-20); CHLORIDE 102 mmol/L (98-107); Calcium 9.8 mg/dL (8.4-10.2); Carbon Dioxide 26 mmol/L (22-30); Creatinine 1 0.88 mg/dL (0.66-1.25); Glucose 113 mg/dL (74-106); LIPASE 109 U/L (23-300); Potassium 4.7 mmol/L (3.5-5.1); SGOT/AST 28 U/L (17-59); SGPT/ALT 19 U/L (0-50); SODIUM 139 mmol/L (137-145); Total Protein 7.7 g/dL (6.3-8.2)
[2019-01-27 01:11] VITALS: BP 131/74; PULSE 87
[2019-01-27 01:12] VITALS: O2SAT 93
--- NOTE | 2019-01-27 09:23 | XRAY ---
Indication: Abdomen pain 3 days. History of pancreatitis. Multiple contiguous axial images obtained through the abdomen and pelvis using 80 cc Isovue 370 contrast only. Comparison: November 04, 2018. Lung bases again demonstrates bibasilar fibrosis/scarring. Minimal right base dependent atelectasis. No infiltrate or effusion. Heart is not enlarged. Stomach is essentially empty. Noncontrasted stomach and bowel loops appear nonobstructed. Normal appendix. Again mild scattered colonic fecal debris greatest in the ascending and transverse colon. No free fluid/air. Remaining liver, gallbladder, pancreas, spleen, adrenal glands, kidneys, ureters, and bladder appear unremarkable. There remains mild scattered aortoiliac calcifications. No AAA or pathologic retroperitoneal lymphadenopathy. Osseous structures intact again with moderate degenerative changes throughout the lumbar spine. Again incidental old left 10 rib fracture. No ventral or inguinal hernias. Impression: 1. Mild fecal stasis without obstruction. 2. Remaining CT abdomen/pelvis with contrast exam is negative. Comment: Preliminary interpretation was made by [facility]. No critical discrepancy. CT DI 10.07
== END 2019-01-27 01:23 | disposition home or self-care (01) ==
LOC: ED 22:22
DX: R10.13 Epigastric pain (principal); R03.0 Elevated blood-pressure reading, without diagnosis of hypertension
CPT/HCPCS: 36000; 36415; 74177; 80053; 81001; 82150; 83605; 83690; 84484; 85025; 93005; 96360; 96374; 96375; 99285; J1170; J2405

== ENCOUNTER 2019-03-03 09:51 | Inpatient (IN) | payer MEDICARE, OTHER ==
[2019-03-03] MEDS ORDERED: Sodium Chloride 0.9% 1000 ML 1,000 ML IV STA ×2 (10:09→10:41)
[2019-03-03] MEDS ORDERED: solu-MEDROL 125 MG IV ONE (10:10)
[2019-03-03] MEDS ORDERED: DUONEB 0.5-3 MG/3 ml Neb IH ONE ×3 (10:10→11:04)
[2019-03-03] MEDS ORDERED: Sodium Chloride 0.9% 1000 ML 1,000 ML ONE ×2 (10:21→11:28)
[2019-03-03] MEDS ORDERED: solu-MEDROL 125 MG ONE (10:21)
--- NOTE | 2019-03-03 10:40 | ERPHSYRPT ---
- History of Present Illness Time Seen by Provider: 03/03/19 10:00 Source: patient Exam Limitations: no limitations Patient Subjective Stated Complaint: Dizziness Triage Nursing Assessment: Patient brought into ED via EMS and transferred to bed per self. Patient A+O X3. Patient's skin pink, warm and dry. Patient complains of dizziness for 2 days that has gotten worse today. Patient denies pain or N/V. Patient's lungs dimininished throughout. Heart tones audible. No edema noted. EMS noted patient was up walking around home while smoking a cigarette. Patient's O2 level upon EMS arrival was 82% on room air. Physician History: Patient has been having severe dizziness with standing and walking for the past two days, worse today. No evaluation prior to coming into emergency department. Witnessed: unwitnessed Prior Episodes: no prior history Timing/Duration: today Precipitating Factors: lightheadedness Context: standing Loss of Consciousness: no loss of consciousness Charcter of event(s): felt faint, almost passed out Allergies/Adverse Reactions: No Known Drug Allergies Allergy (Verified 03/03/19 09:53) Home Medications: Ipratropium/Albuterol Sulfate [Combivent Inhaler] 14.7 gm IH Q6H PRN PRN [History] Albuterol 2.5 mg/0.5 ml [PROVENTIL Solution 2.5 MG/0.5 ML] 2.5 mg IH Q4H PRN PRN 10/06/17 [History] Hx Tetanus, Diphtheria Vaccination/Date Given: No Hx Influenza Vaccination/Date Given: No Hx Pneumococcal Vaccination/Date Given: No Immunizations Up to Date: Yes - Past Medical History Pertinent Past Medical History: Yes Neurological History: No Pertinent History ENT History: No Pertinent History Cardiac History: No Pertinent History Respiratory History: COPD, Other Endocrine Medical History: No Pertinent History Musculoskeletal History: Arthritis GI Medical History: No Pertinent History History: No Pertinent History Psycho-Social History: Other Male Reproductive Disorders: No Pertinent History Other Medical History: few fractures - Past Surgical History Past Surgical History: No Neuro Surgical History: No Pertinent History Cardiac: No Pertinent History Respiratory: No Pertinent History Gastrointestinal: No Pertinent History Genitourinary: No Pertinent History Musculoskeletal: No Pertinent History Male Surgical History: No Pertinent History - Social History Smoking Status: Current every day smoker How long have you smoked: 50 YEARS Exposure to second hand smoke: Yes Alcohol Use: Chronic (daily throughout the day including work time) Drug Use: none Patient Lives Alone: Yes - Review of Systems Constitutional: No Fever, No Chills, No Fatigue, No Lethargy Eyes: No Eye Pain, No Vision Changes Ears, Nose, & Throat: No Mouth Pain, No Mouth Swelling, No Painful Swallowing Respiratory: No Cough, No Dyspnea Cardiac: No Chest Pain, No Palpitations, No Syncope Abdominal/Gastrointestinal: Hematochezia (had an episode of stephanie blood with bowel movement the other day), No Abdominal Pain, No Nausea, No Vomiting, No Hematemesis, No Melena Genitourinary Symptoms: No Dysuria, No Frequency, No Hematuria, No Flank Pain Musculoskeletal: No Back Pain, No Neck Pain Skin: No Pruritis, No Rash Neurological: Dizziness, No Focal Weakness, No Lethargy, No Parasthesia, No Sensory Changes, No Speech Changes, No Tremors, No Vertigo Psychological: No Anxiety, No Emotional Lability Endocrine: No Excessive Sweating Hematologic/Lymphatic: No Easy Bleeding, No Easy Bruising All Other Systems: Reviewed and Negative Physical Exam - Nursing Vital Signs Nursing Vital Signs: Initial Vital Signs Temperature 98.0 F 03/03/19 09:54 Pulse Rate 113 H 03/03/19 09:54 Respiratory Rate 20 03/03/19 09:54 Blood Pressure 126/79 03/03/19 09:54 O2 Sat by Pulse Oximetry 100 03/03/19 09:54 Pain Scale Pain Intensity 0 - [place] Coma Scale Best Eye Response (Augie): (4) open spontaneously Best Verbal Response ([place]): (5) oriented Best Motor Response ([place]): (6) obeys commands [place] Total: 15 - Physical Exam General Appearance: no apparent distress, alert Eye Exam: left eye: normal inspection, PERRL, EOMI Ears, Nose, Throat Exam: normal ENT inspection, TMs normal, pharynx normal, moist mucous membranes Neck Exam: normal inspection, non-tender, supple, full range of motion, No meningismus, No Brudzinski Respiratory: lungs clear, airway intact, wheezing, No chest tenderness, No respiratory distress, No crackles/rales, No rhonchi, No stridor, No pleural rub Cardiovascular: regular rate/rhythm, normal heart sounds, normal peripheral pulses, capillary refill <2 sec Gastrointestinal: soft, normal bowel sounds, No tenderness, No distention, No mass, No guarding, No ecchymosis Back Exam: normal inspection, normal range of motion, No CVA tenderness, No vertebral tenderness, No rash Extremity Exam: normal inspection, normal range of motion, pelvis stable, No anayeli's sign, No inflammation, No pedal edema, No swelling Mental Status: alert, 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, 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 Exam: normal hearing, normal speech, PERRL, No abnormal gag reflex, No abnormal pupil position, No facial paresthesias, No facial weakness, No tongue deviation to R, No tongue deviation to L Coordination/Gait: normal finger to nose, normal cerebellar function Motor/Sensory: no motor deficit, no sensory deficit, no pronator drift, No sensory deficit, No weak motor strength RUE, No weak motor strength LUE, No weak motor strength RLE, No weak motor strength LLE DTR: tricep (R): 2+, tricep (L): 2+, ankle (R): 2+, ankle (L): 2+ Skin Exam: normal color, warm, dry, No rash, No petechiae, No cyanosis SpO2 Interpretation: normal SpO2: 100 O2 Delivery: Room Air - Course Nursing assessment & vital signs reviewed: Yes EKG Interpreted by Me: RATE (105), Sinus Tach, NORMAL AXIS, NORMAL INTERVALS, NORMAL QRS, NORMAL ST-T, Other (no appreciable change from comparison EKG from 02/27/2019) - Radiology Exams Chest X-ray Interpretation: Other (her radiologist interpretation:chest remained hyperventilating cleared and with a few incidental calcified granulomas. Heart and mediastinal structures are within normal limits. Bony thorax again demonstrates mild degenerative changes and healing 10th rib fracture. Overall impression: Stable nonacute hyperinflated chest with chronic features) - CT Exams Head CT Interpretation: Negative, Other (per radiologist interpretation: Stable nonacute senile brain again with paranasal sinus disease and partial bacitracin the left mastoid air cells. No new acute intracranial abnormalities.) Abdomen/Pelvis CT Interpretation: Other (per radiologist interpretation: Lung bases again demonstrating minimal bibasilar fibrosis/spine without infiltrate or effusion. Heart is not enlarged. A noncontrast stomach and bowel intermittent nonobstructive. Again mild fluid distended small bowel loops slightly more than before stable mild wall thickening/enhancement and fluid level pharynx enteritis. Normal appendix. No free fluid/air. Remaining liver, gallbladder, pancreas, spleen, adrenal glands, kidneys, ureters, and bladder appear unremarkable. Stable mild aortoiliac calcification without AAA. Overall impression: CT features favoring enteritis. No complications. Remaining CT of the abdomen/pelvis with contrast is again negative.) - Radiology Ultrasound Exam Carotid Ultrasound: Other (per radiologist interpretation:examination the right carotid circulation demonstrates a minimal intimal thickening at the level of the bulb. No focal arteriosclerotic plaquing, critical stenosis, or obstruction. PSV of the CCA is 8 cm/s. PSV of the ICA is 102 cm/s. ICA/CCA ratio is 1.2. Normal antegrade vertebral artery flow. Examination of the left carotid circulation diverticular minimal calcified plaquing at the level pole extending into the origin of the external carotid artery. PSV of the CCA is 104 cm/s. PDS and he of the ICA is 117 cm/s. ICA/CCA ratio is 1.1. Normal antegrade vertebral artery flow. Overall impression: Right carotid bulb intimal thickening and minimal left carotid bulb calcified plaquing. The loss of the measurements and ratios are negative for hemodynamically significant flow limiting stenosis.) Ordered Tests: Active Orders 24 hr Category Date Time Status Broach Setter STAT Care 03/03/19 10:11 Active EKG-ER Only STAT Care 03/03/19 10:09 Active IV Insertion STAT Care 03/03/19 10:09 Active Orthostatic Vital Signs STAT Care 03/03/19 10:14 Active Oxygen-ED Only Nasal Cannula 2 lpm Care 03/03/19 10:09 Active ABDOMEN AND PELVIS W CONTRAST [CT] Stat Exams 03/03/19 11:28 Taken CAROTID BILATERAL [US] Stat Exams 03/03/19 10:13 Completed CHEST 1 VIEW (PORTABLE) Stat Exams 03/03/19 10:09 Completed HEAD WITHOUT CONTRAST [CT] Stat Exams 03/03/19 10:12 Taken AMYLASE Stat Lab 03/03/19 10:30 Completed BLOOD CULTURE Stat Lab 03/03/19 10:30 Received CBC W DIFF Stat Lab 03/03/19 10:30 Completed CK-Creatinine Phosphokinase Stat Lab 03/03/19 10:30 Completed CMP Stat Lab 03/03/19 10:30 Completed ETHYL ALCOHOL Stat Lab 03/03/19 10:30 Completed LIPASE Stat Lab 03/03/19 10:30 Completed Lactic Acid Stat Lab 03/03/19 10:45 Completed MAGNESIUM Stat Lab 03/03/19 10:30 Completed NT PRO BNP Stat Lab 03/03/19 10:30 Completed PROTIME WITH INR Stat Lab 03/03/19 10:30 Completed PTT Stat Lab 03/03/19 10:30 Completed TROPONIN Q3H Lab 03/03/19 10:30 Completed TROPONIN Q3H Lab 03/03/19 13:15 Ordered TROPONIN Q3H Lab 03/03/19 16:15 Ordered TROPONIN Q3H Lab 03/03/19 19:15 Ordered TROPONIN Q3H Lab 03/03/19 22:15 Ordered UA W/RFX UR CULTURE Stat Lab 03/03/19 11:25 Completed Urine Triage Profile Stat Lab 03/03/19 11:25 Completed VENOUS BLOOD GAS Stat Lab 03/03/19 10:45 Completed Peak Expiratory Flow Rate DAILY RT 03/03/19 11:00 Active Respiratory Therapy Assessment DAILY RT 03/04/19 07:00 Active Transfer Order Routine Transfer 03/03/19 Ordered Medication Summary Discontinued Medications Generic Name Dose Route Start Last Admin Trade Name Freq PRN Reason Stop Dose Admin Albuterol/Ipratropium 9 ml 03/03/19 10:10 03/03/19 11:00 Duoneb 0.5-3 Mg/3 Ml Neb IH 03/03/19 10:11 9 ml STAT ONE Administration Albuterol/Ipratropium Confirm 03/03/19 10:37 Duoneb 0.5-3 Mg/3 Ml Neb Administered 03/03/19 10:38 Dose 3 ml IH .STK-MED ONE Albuterol/Ipratropium Confirm 03/03/19 11:04 Duoneb 0.5-3 Mg/3 Ml Neb Administered 03/03/19 11:05 Dose 6 ml IH .STK-MED ONE Sodium Chloride 1,000 mls @ 999 mls/hr 03/03/19 10:09 03/03/19 11:28 Sodium Chloride 0.9% 1000 Ml IV 03/03/19 11:09 Infused .Q1H1M STA Infusion Sodium Chloride Confirm 03/03/19 10:21 Sodium Chloride 0.9% 1000 Ml Administered 03/03/19 10:22 Dose 1,000 mls @ ud .ROUTE .STK-MED ONE Sodium Chloride 1,000 mls @ 999 mls/hr 03/03/19 10:41 03/03/19 11:29 Sodium Chloride 0.9% 1000 Ml IV 03/03/19 11:41 999 mls/hr .Q1H1M STA Administration Sodium Chloride Confirm 03/03/19 11:28 Sodium Chloride 0.9% 1000 Ml Administered 03/03/19 11:29 Dose 1,000 mls @ ud .ROUTE .STK-MED ONE Methylprednisolone Sodium Succinate 125 mg 03/03/19 10:10 03/03/19 10:22 Solu-Medrol 125 Mg IV 03/03/19 10:11 125 mg STAT ONE Administration Methylprednisolone Sodium Succinate Confirm 03/03/19 10: Solu-Medrol 125 Mg Administered 03/03/19 10:22 Dose 125 mg .ROUTE .STK-MED ONE Lab/Rad Data: Laboratory Result Diagrams 03/03/19 10:30 03/03/19 10:30 Laboratory Results 03/03/19 03/03/19 03/03/19 Range/Units 11:25 11:25 10:45 WBC (4.0-10.5) K/mm3 RBC (4.1-5.6) M/mm3 Hgb (12.5-18.0) gm/dl Hct (42-50) % MCV (78-100) fl MCH (26-32) pg MCHC (32-36) g/dl RDW (11.5-14.0) % Plt Count (150-450) K/mm3 MPV (6-9.5) fl Gran % (36.0-66.0) % Eos # (Auto) (0-0.5) Absolute Lymphs (auto) (1.0-4.6) Absolute Monos (auto) (0.0-1.3) Lymphocytes % (24.0-44.0) % Monocytes % (0.0-12.0) % Eosinophils % (0.00-5.0) % Basophils % (0.0-0.4) % Absolute Granulocytes (1.4-6.9) Basophils # (0-0.4) PT (8.83-12.87) SECONDS INR (0.8-3.0) APTT (24.1-36.1) SECONDS pO2/FiO2 Ratio 21.0 % VBG pH 7.38 (7.32-7.42) VBG pCO2 at Pat Temp 44 (42-55) mm/Hg VBG pO2 at Pat Temp 19 L (25-40) mm/Hg VBG HCO3 26.0 (22-28) meq/L VBG O2 Sat ([place]) 37.9 L (95-100) VBG Base Excess 0.6 (-2.0-2.0) VBG Hemoglobin 11.2 VBG Carboxyhemoglobin 7.1 H* (0.0-6.9) % T HGB POC Potassium 4.0 (3.5-5.1) Sodium (137-145) mmol/L Potassium (3.5-5.1) mmol/L Chloride (98-107) mmol/L Carbon Dioxide (22-30) mmol/L Anion Gap (5-15) MEQ/L BUN (9-20) mg/dL Creatinine (0.66-1.25) mg/dL Estimated GFR ML/MIN Glucose (74-106) mg/dL Lactic Acid 1.6 (0.4-2.0) Calcium (8.4-10.2) mg/dL Magnesium (1.6-2.3) mg/dL Total Bilirubin (0.2-1.3) mg/dL AST (17-59) U/L ALT (0-50) U/L Alkaline Phosphatase (38-126) U/L Creatine Kinase (55-170) U/L Troponin I (0.000-0.034) ng/mL NT-Pro-B Natriuret Pep (0-900) pg/mL Serum Total Protein (6.3-8.2) g/dL Albumin (3.5-5.0) g/dL Amylase (30-110) U/L Lipase (23-300) U/L Urine Color YELLOW (YELLOW) Urine Appearance CLEAR (CLEAR) Urine pH 6.0 (5-6) Ur Specific [place] 1.021 (1.005-1.025) Urine Protein NEGATIVE (Negative) Urine Ketones NEGATIVE (NEGATIVE) Urine Blood NEGATIVE (0-5) Luther/ul Urine Nitrite NEGATIVE (NEGATIVE) Urine Bilirubin NEGATIVE (NEGATIVE) Urine Urobilinogen NEGATIVE (0-1) mg/dL Ur Leukocyte Esterase NEGATIVE (NEGATIVE) Urine WBC (Auto) NONE (0-5) /HPF Urine RBC (Auto) NONE (0-2) /HPF U Epithel Cells (Auto) NONE (FEW) /HPF Urine Bacteria (Auto) NONE (NEGATIVE) /HPF Urine Culture Reflexed NO (NO) Urine Glucose NEGATIVE (NEGATIVE) mg/dL Urine Opiates Level NEGATIVE (NEGATIVE) Ur Methadone NEGATIVE (NEGATIVE) Urine Barbiturates NEGATIVE (NEGATIVE) Ur Phencyclidine (PCP) NEGATIVE (NEGATIVE) Urine Amphetamine NEGATIVE (NEGATIVE) U Benzodiazepine Level NEGATIVE (NEGATIVE) Urine Cocaine NEGATIVE (NEGATIVE) Urine Marijuana (THC) NEGATIVE (NEGATIVE) Ethyl Alcohol (0-10) mg/dL Influenza Type A Ag (NEGATIVE) Influenza Type B Ag (NEGATIVE) RSV (PCR) (Negative) 03/03/19 03/03/19 03/03/19 Range/Units 10:30 10:30 10:30 WBC (4.0-10.5) K/mm3 RBC (4.1-5.6) M/mm3 Hgb (12.5-18.0) gm/dl Hct (42-50) % MCV (78-100) fl MCH (26-32) pg MCHC (32-36) g/dl RDW (11.5-14.0) % Plt Count (150-450) K/mm3 MPV (6-9.5) fl Gran % (36.0-66.0) % Eos # (Auto) (0-0.5) Absolute Lymphs (auto) (1.0-4.6) Absolute Monos (auto) (0.0-1.3) Lymphocytes % (24.0-44.0) % Monocytes % (0.0-12.0) % Eosinophils % (0.00-5.0) % Basophils % (0.0-0.4) % Absolute Granulocytes (1.4-6.9) Basophils # (0-0.4) PT (8.83-12.87) SECONDS INR (0.8-3.0) APTT (24.1-36.1) SECONDS pO2/FiO2 Ratio % VBG pH (7.32-7.42) VBG pCO2 at Pat Temp (42-55) mm/Hg VBG pO2 at Pat Temp (25-40) mm/Hg VBG HCO3 (22-28) meq/L VBG O2 Sat ([place]) (95-100) VBG Base Excess (-2.0-2.0) VBG Hemoglobin VBG Carboxyhemoglobin (0.0-6.9) % T HGB POC Potassium (3.5-5.1) Sodium (137-145) mmol/L Potassium (3.5-5.1) mmol/L Chloride (98-107) mmol/L Carbon Dioxide (22-30) mmol/L Anion Gap (5-15) MEQ/L BUN (9-20) mg/dL Creatinine (0.66-1.25) mg/dL Estimated GFR ML/MIN Glucose (74-106) mg/dL Lactic Acid (0.4-2.0) Calcium (8.4-10.2) mg/dL Magnesium 2.0 (1.6-2.3) mg/dL Total Bilirubin (0.2-1.3) mg/dL AST (17-59) U/L ALT (0-50) U/L Alkaline Phosphatase (38-126) U/L Creatine Kinase (55-170) U/L Troponin I < 0.012 (0.000-0.034) ng/mL NT-Pro-B Natriuret Pep (0-900) pg/mL Serum Total Protein (6.3-8.2) g/dL Albumin (3.5-5.0) g/dL Amylase 94 (30-110) U/L Lipase 136 (23-300) U/L Urine Color (YELLOW) Urine Appearance (CLEAR) Urine pH (5-6) Ur Specific [place] (1.005-1.025) Urine Protein (Negative) Urine Ketones (NEGATIVE) Urine Blood (0-5) Luther/ul Urine Nitrite (NEGATIVE) Urine Bilirubin (NEGATIVE) Urine Urobilinogen (0-1) mg/dL Ur Leukocyte Esterase (NEGATIVE) Urine WBC (Auto) (0-5) /HPF Urine RBC (Auto) (0-2) /HPF U Epithel Cells (Auto) (FEW) /HPF Urine Bacteria (Auto) (NEGATIVE) /HPF Urine Culture Reflexed (NO) Urine Glucose (NEGATIVE) mg/dL Urine Opiates Level (NEGATIVE) Ur Methadone (NEGATIVE) Urine Barbiturates (NEGATIVE) Ur Phencyclidine (PCP) (NEGATIVE) Urine Amphetamine (NEGATIVE) U Benzodiazepine Level (NEGATIVE) Urine Cocaine (NEGATIVE) Urine Marijuana (THC) (NEGATIVE) Ethyl Alcohol < 10 (0-10) mg/dL Influenza Type A Ag NEGATIVE (NEGATIVE) Influenza Type B Ag NEGATIVE (NEGATIVE) RSV (PCR) NEGATIVE (Negative) 03/03/19 03/03/19 03/03/19 Range/Units 10:30 10:30 10:30 WBC 8.2 (4.0-10.5) K/mm3 RBC 3.52 L (4.1-5.6) M/mm3 Hgb 11.7 L (12.5-18.0) gm/dl Hct 35.3 L (42-50) % MCV 100.3 H (78-100) fl MCH 33.2 H (26-32) pg MCHC 33.1 (32-36) g/dl RDW 12.8 (11.5-14.0) % Plt Count 226 (150-450) K/mm3 MPV 9.7 H (6-9.5) fl Gran % 60.7 (36.0-66.0) % Eos # (Auto) 0.07 (0-0.5) Absolute Lymphs (auto) 2.56 (1.0-4.6) Absolute Monos (auto) 0.57 (0.0-1.3) Lymphocytes % 31.1 (24.0-44.0) % Monocytes % 6.9 (0.0-12.0) % Eosinophils % 0.8 (0.00-5.0) % Basophils % 0.5 (0.0-0.4) % Absolute Granulocytes 5.00 (1.4-6.9) Basophils # 0.04 (0-0.4) PT 11.4 (8.83-12.87) SECONDS INR 1.01 (0.8-3.0) APTT 28.5 (24.1-36.1) SECONDS pO2/FiO2 Ratio % VBG pH (7.32-7.42) VBG pCO2 at Pat Temp (42-55) mm/Hg VBG pO2 at Pat Temp (25-40) mm/Hg VBG HCO3 (22-28) meq/L VBG O2 Sat ([place]) (95-100) VBG Base Excess (-2.0-2.0) VBG Hemoglobin VBG Carboxyhemoglobin (0.0-6.9) % T HGB POC Potassium (3.5-5.1) Sodium 141 (137-145) mmol/L Potassium 4.2 (3.5-5.1) mmol/L Chloride 105 (98-107) mmol/L Carbon Dioxide 27 (22-30) mmol/L Anion Gap 12.9 (5-15) MEQ/L BUN 47 H (9-20) mg/dL Creatinine 0.84 (0.66-1.25) mg/dL Estimated GFR > 60.0 ML/MIN Glucose 92 (74-106) mg/dL Lactic Acid (0.4-2.0) Calcium 9.0 (8.4-10.2) mg/dL Magnesium (1.6-2.3) mg/dL Total Bilirubin 0.40 (0.2-1.3) mg/dL AST 19 (17-59) U/L ALT 13 (0-50) U/L Alkaline Phosphatase 40 (38-126) U/L Creatine Kinase 53 L (55-170) U/L Troponin I (0.000-0.034) ng/mL NT-Pro-B Natriuret Pep 60.2 (0-900) pg/mL Serum Total Protein 6.9 (6.3-8.2) g/dL Albumin 4.0 (3.5-5.0) g/dL Amylase (30-110) U/L Lipase (23-300) U/L Urine Color (YELLOW) Urine Appearance (CLEAR) Urine pH (5-6) Ur Specific [place] (1.005-1.025) Urine Protein (Negative) Urine Ketones (NEGATIVE) Urine Blood (0-5) Luther/ul Urine Nitrite (NEGATIVE) Urine Bilirubin (NEGATIVE) Urine Urobilinogen (0-1) mg/dL Ur Leukocyte Esterase (NEGATIVE) Urine WBC (Auto) (0-5) /HPF Urine RBC (Auto) (0-2) /HPF U Epithel Cells (Auto) (FEW) /HPF Urine Bacteria (Auto) (NEGATIVE) /HPF Urine Culture Reflexed (NO) Urine Glucose (NEGATIVE) mg/dL Urine Opiates Level (NEGATIVE) Ur Methadone (NEGATIVE) Urine Barbiturates (NEGATIVE) Ur Phencyclidine (PCP) (NEGATIVE) Urine Amphetamine (NEGATIVE) U Benzodiazepine Level (NEGATIVE) Urine Cocaine (NEGATIVE) Urine Marijuana (THC) (NEGATIVE) Ethyl Alcohol (0-10) mg/dL Influenza Type A Ag (NEGATIVE) Influenza Type B Ag (NEGATIVE) RSV (PCR) (Negative) - Progress Progress: improved Progress Note: 03/03/19 10:40 Orthostatics are abnormal as patient increased pulse from laying to standing 03/03/19 11:23 Improved airflow with DuoNeb treatments. Patient is in sinus rhythm on the monitor tech, no tachycardia, pulse ox at 100% and no tachypnea. Patient is hemodynamically in good condition. We contacted the [facility] for transfer, and the [facility] states patient may be able to stay and be admitted at this facility. 03/03/19 11:29 Discussed the patient with Dr Figueroa, Hospitalist at [facility]. Dr Figueroa accepted the patient for observation and would like surgery consulted and CT abdomen and pelvis to check for potential active diverticular bleeding. Discussed with .: Rosio Will see patient in: hospital (observation) ([facility] telemetry) Counseled pt/family regarding: lab results, diagnosis, need for follow-up, rad results - Departure Departure Disposition: Observation ([facility]) Clinical Impression: COPD exacerbation, Acute blood loss anemia, Dizziness on standing, Enteritis Condition: Fair Critical Care Time: Yes Critical Care Time(excluding separately billable procedures): Critical 30-74 mins Referrals: DOCTOR,NO FAMILY [Primary Care Provider] -
[2019-03-03 10:51] LABS: INR 1.01 (0.8-3.0); PROTIME 11.4 SECONDS (8.83-12.87)
[2019-03-03 10:54] LABS: BASOPHIL % 0.5 % (0.0-0.4); Basophil (Absolute #) 0.04 (0-0.4); Eosinophil % 0.8 % (0.00-5.0); Eosinophil (Absolute #) 0.07 (0-0.5); Hematocrit 35.3 % (42-50); Hemoglobin 11.7 gm/dl (12.5-18.0); Lymphocyte (Absolute #) 2.56 (1.0-4.6); Lymphocytes % 31.1 % (24.0-44.0); Mean Cell Volume 100.3 fl (78-100); Mean Corpuscular Hemoglobin 33.2 pg (26-32); Mean Corpuscular Hgb Concent. 33.1 g/dl (32-36); Mean Platelet Volume 9.7 fl (6-9.5); Monocyte (Absolute #) 0.57 (0.0-1.3); Monocytes % 6.9 % (0.0-12.0); Neutrophil % 60.7 % (36.0-66.0); PTT 28.5 SECONDS (24.1-36.1); Platelet Count 226 K/mm3 (150-450); Red Blood Count 3.52 M/mm3 (4.1-5.6); Red Cell Distribution Width 12.8 % (11.5-14.0); White Blood Count 8.2 K/mm3 (4.0-10.5)
[2019-03-03 10:55] LABS: Lactic Acid 1.6 (0.4-2.0); VBG BASE EXCESS 0.6 (-2.0-2.0); VBG HEMOGLOBIN 11.2; VBG O2 SATURATION 37.9 (95-100); VBG pH 7.38 (7.32-7.42)
[2019-03-03 10:56] LABS: VBG CARBOXYHEMOGLOBIN 7.1 % T HGB (0.0-6.9)
[2019-03-03 10:56] LABS: AMYLASE 94 U/L (30-110); LIPASE 136 U/L (23-300)
[2019-03-03 10:58] LABS: ETHYL ALCOHOL < 10 mg/dL (0-10)
[2019-03-03 11:05] LABS: ALKALINE PHOSPHATASE 40 U/L (38-126); ANION GAP 12.9 MEQ/L (5-15); BLOOD UREA NITROGEN 47 mg/dL (9-20); CHLORIDE 105 mmol/L (98-107); CK-Creatinine Phosphokinase 53 U/L (55-170); Carbon Dioxide 27 mmol/L (22-30); Creatinine 1 0.84 mg/dL (0.66-1.25); Glucose 92 mg/dL (74-106); NT PRO BNP 60.2 pg/mL (0-900); Potassium 4.2 mmol/L (3.5-5.1); SGOT/AST 19 U/L (17-59); SGPT/ALT 13 U/L (0-50); SODIUM 141 mmol/L (137-145); Total Protein 6.9 g/dL (6.3-8.2)
--- NOTE | 2019-03-03 11:17 | XRAY ---
Indication: Dizziness. Two-dimensional sonogram and color Doppler imaging of the carotid arteries of the neck performed. Comparison: None Examination of the right carotid circulation demonstrates minimal intimal thickening at the level of the bulb. No focal arteriosclerotic plaquing, critical stenosis, or obstruction. PSV of the CCA is 88 cm/s. PSV of the ICA is 102 cm/s. ICA/CCA ratio is 1.2. Normal antegrade vertebral artery flow. Examination of the left carotid circulation demonstrates minimal calcified plaquing at the level of the bulb extending into the origin of the external carotid artery. PSV of the CCA is 104 cm/s. PSV of the ICA is 117 cm/s. ICA/CCA ratio is 1.1. Normal antegrade vertebral artery flow. Impression: Right carotid bulb intimal thickening and minimal left carotid bulb calcified plaquing. Velocity measurements and ratios are negative for hemodynamically significant flow-limiting stenosis.
[2019-03-03 11:24] LABS: INFLUENZA A NEGATIVE (NEGATIVE); INFLUENZA B NEGATIVE (NEGATIVE); RESPIRATORY SYNCTIAL VIRUS NEGATIVE (Negative)
--- NOTE | 2019-03-03 11:27 | XRAY ---
Indication: Dizziness and short of breath. Comparison: November 04, 2018. Portable chest remains hyperinflated and clear again with a few incidental calcified granulomas. Heart and mediastinal structures within normal limits. Bony thorax again demonstrate mild degenerative changes and healing left 10 rib fracture. Impression: Stable nonacute hyperinflated chest with chronic features.
[2019-03-03 11:31] LABS: Appearance CLEAR (CLEAR); Bilirubin NEGATIVE (NEGATIVE); Blood NEGATIVE Ery/ul (0-5); Glucose NEGATIVE (NEGATIVE); Ketones NEGATIVE (NEGATIVE); Leukocyte Esterase NEGATIVE (NEGATIVE); Nitrite NEGATIVE (NEGATIVE); Protein,Urine Dip NEGATIVE (Negative); Specific Gravity 1.021 (1.005-1.025); Urobilinogen NEGATIVE mg/dL (0-1)
[2019-03-03 11:48] LABS: Amphetamine,Urine NEGATIVE (NEGATIVE); Barbiturate,Urine NEGATIVE (NEGATIVE); Benzodiazepine,Urine NEGATIVE (NEGATIVE); Cocaine,Urine NEGATIVE (NEGATIVE); Methadone,Urine NEGATIVE (NEGATIVE); Opiate,Urine NEGATIVE (NEGATIVE); PCP,Urine NEGATIVE (NEGATIVE); THC,Urine NEGATIVE (NEGATIVE)
--- NOTE | 2019-03-03 12:48 | XRAY ---
Indication: Dizziness. Multiple contiguous axial images obtained through the head without contrast. Comparison: May 26, 2017. Again age-appropriate global atrophy with minimal periventricular degenerative micro-ischemia. No acute intracranial hemorrhage, abnormal extra-axial fluid collection, or mass effect. Fourth ventricle is midline without hydrocephalus. Bony calvarium intact. There is again moderate mucosal thickening of both ethmoid and left maxillary sinuses. Stable partial opacification of the left mastoid air cells. Impression: 1. Stable nonacute senile brain again with paranasal sinus disease and partial opacification of the left mastoid air cells. 2. No new or acute intracranial abnormalities. CT DI 66.90
--- NOTE | 2019-03-03 12:49 | XRAY ---
Indication: Blood in stool. Multiple contiguous axial images obtained through the abdomen and pelvis using 80 cc Isovue 370 contrast only. Comparison: Multiple priors, most recent 4 days ago. Lung bases again demonstrates minimal bibasilar fibrosis/scarring without infiltrate or effusion. Heart is not enlarged. Noncontrasted stomach and bowel loops remain nonobstructed. Again mild fluid distended small bowel loops slightly more than before with stable mild wall thickening/enhancement and fluid leveling favoring enteritis. Normal appendix. No free fluid/air. Remaining liver, gallbladder, pancreas, spleen, adrenal glands, kidneys, ureters, and bladder appear unremarkable. Stable mild aortoiliac calcifications without AAA. Impression: 1. Again CT features favoring enteritis. No complications. 2. Remaining CT abdomen/pelvis with contrast exam is again negative. CTDI 16.50
[2019-03-03] MEDS ORDERED: PROTONIX 40 MG IV IV ONE (13:29)
[2019-03-03] MEDS ORDERED: Zofran 4 MG/2 ML VIAL IV PRN (13:29)
[2019-03-03] MEDS: Sodium Chloride 0.9% 1000 ML 1,000 ML IV SCH ×2 (14:57→20:09)
[2019-03-03] MEDS ORDERED: DUONEB 0.5-3 MG/3 ml Neb IH SCH (15:00)
[2019-03-03] MEDS ORDERED: PROVENTIL 2.5 MG/3 ML NEB IH PRN (15:48)
[2019-03-03 16:26] LABS: Hematocrit 26.3 % (42-50); Hemoglobin 8.6 gm/dl (12.5-18.0)
--- NOTE | 2019-03-03 18:04 | PCM.HP ---
History of Present Illness - Chief Complaint Chief Complaint: anemia History of Present Illness: Mr.MCKEE GREGORIO is a 63 year old male who presented to ER by ambulance. He C/O dizziness /lightheadedness x 2 days worse today,felt like he could pass out upon standing. He C/O mid abdominal pain for about 3 months.He was seen by his PCP at the [facility] and at [facility] during this time frame but not given a diagnosis other than constipation ,acid reflux and "something about the pancreas ". He took 2 doses of laxative pill "Equate" about 3 days ago with result of stool and bright red blood then several black tarry stools over the past 2 days. Patient states he drinks beer daily since he served in the [place] war. He smokes 2ppd and is on home nebulizer treatments and Inhalers for COPD. - Review of Systems Constitutional: Weakness Eyes: No Symptoms Ears, Nose, & Throat: No Symptoms Respiratory: Wheezing (COPD controlled on current meds-inhaler and neb treatments ,daily smoker) Cardiac: Orthopnea (no chest pain no palpitations) Abdominal/Gastrointestinal: Abdominal Pain (periumbilical discomfort ,denies nausea or vomiting), Diarrhea, Hematochezia, Melena Genitourinary Symptoms: No Dysuria Musculoskeletal: No Back Pain, No Neck Pain Skin: No Rash Neurological: Dizziness (light headed upon standing ,no focal weakness), Other Psychological: Alcohol Abuse, Anxiety Endocrine: No Symptoms Medications & Allergies Home Medications: Home Medication List Albuterol Sulfate [Proair Hfa] 2 puff IH UD 03/03/19 [History Confirmed 03/03/19 ] Mometasone Furoate [Asmanex] 220 mcg IH HS 03/03/19 [History Confirmed 03/03/19] Tiotropium Br/Olodaterol HCl [Stiolto Respimat Inhal [place]] 2 puff IH DAILY [History Confirmed 03/03/19] Allergies/Adverse Reactions: Allergies Allergy/AdvReac Type Severity Reaction Status Date / Time No Known Drug Allergies Allergy Verified 03/03/19 09:53 - Past Medical History Past Medical History: Yes Neurological History: No Pertinent History ENT History: No Pertinent History Cardiac History: No Pertinent History CARDIAC HISTORY: No Pertinent History Respiratory History: COPD, Other Endocrine Medical History: No Pertinent History Musculoskelatal History: Arthritis GI Medical History: No Pertinent History, GERD, Other (periumbilical pain x approx 3 mo) History: No Pertinent History Pyscho-Social History: Other (daily alcohol use) Male Reproductive Disorders: No Pertinent History Comment: few fractures - Past Surgical History Past Surgical History: No Neuro Surgical History: No Pertinent History Cardiac History: No Pertinent History Respiratory Surgery: No Pertinent History GI Surgical History: No Pertinent History Genitourinary Surgical Hx: No Pertinent History Musculskeletal Surgical Hx: No Pertinent History Male Surgical History: No Pertinent History - Social History Smoking Status: Current every day smoker How long have you smoked: 50 yrs Exposure to second hand smoke: Yes Alcohol: Daily Drug Use: none - Physical Exam Vital Signs: Vital Signs - 24 hr Temp Pulse Resp BP Pulse Ox 03/03/19 16:57 97.7 F 90 20 133/68 96 03/03/19 14:54 96 03/03/19 13:33 98.0 F 97 H 24 121/59 93 L 03/03/19 13:30 98 F 97 H 20 121/59 93 L 03/03/19 13:29 98 F 03/03/19 13:28 98 F 97 H 20 121/59 93 L 03/03/19 12:57 100 03/03/19 12:54 101 H 18 123/73 97 03/03/19 12:46 103 H 20 123/73 99 03/03/19 11:16 103 H 18 124/75 99 03/03/19 11:07 103 H 20 98 03/03/19 09:54 98.0 F 113 H 20 126/79 100 General Appearance: mild distress, lethargy Neurologic Exam: alert, 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, cooperative Eye Exam: PERRL/EOMI, eyes nml inspection Ears, Nose, Throat Exam: normal ENT inspection Neck Exam: normal inspection, other (no mass,no bruit,no JVD) Respiratory Exam: diminished breath sounds (no dyspnea,no wheezing,no ronchi, no rales) Cardiovascular Exam: regular rate/rhythm, normal heart sounds Gastrointestinal/Abdomen Exam: soft, normal bowel sounds, tenderness (minimal periumbilical tenderness,no guarding no rebound. See CT abd pelvis from ER) Rectal Exam: black stool Results - Labs Lab/Micro Results: Lab Results-Last 24 Hours 10/21/19 10/21/19 10/21/19 Range/Units 10:30 10:30 10:30 WBC 8.2 (4.0-10.5) K/mm3 RBC 3.52 L (4.1-5.6) M/mm3 Hgb 11.7 L (12.5-18.0) gm/dl Hct 35.3 L (42-50) % MCV 100.3 H (78-100) fl MCH 33.2 H (26-32) pg MCHC 33.1 (32-36) g/dl RDW 12.8 (11.5-14.0) % Plt Count 226 (150-450) K/mm3 MPV 9.7 H (6-9.5) fl Gran % 60.7 (36.0-66.0) % Eos # (Auto) 0.07 (0-0.5) Absolute Lymphs (auto) 2.56 (1.0-4.6) Absolute Monos (auto) 0.57 (0.0-1.3) Lymphocytes % 31.1 (24.0-44.0) % Monocytes % 6.9 (0.0-12.0) % Eosinophils % 0.8 (0.00-5.0) % Basophils % 0.5 (0.0-0.4) % Absolute Granulocytes 5.00 (1.4-6.9) Basophils # 0.04 (0-0.4) PT 11.4 (8.83-12.87) SECONDS INR 1.01 (0.8-3.0) APTT 28.5 (24.1-36.1) SECONDS pO2/FiO2 Ratio % VBG pH (7.32-7.42) VBG pCO2 at Pat Temp (42-55) mm/Hg VBG pO2 at Pat Temp (25-40) mm/Hg VBG HCO3 (22-28) meq/L VBG O2 Sat ([place]) (95-100) VBG Base Excess (-2.0-2.0) VBG Hemoglobin VBG Carboxyhemoglobin (0.0-6.9) % T HGB POC Potassium (3.5-5.1) Sodium 141 (137-145) mmol/L Potassium 4.2 (3.5-5.1) mmol/L Chloride 105 (98-107) mmol/L Carbon Dioxide 27 (22-30) mmol/L Anion Gap 12.9 (5-15) MEQ/L BUN 47 H (9-20) mg/dL Creatinine 0.84 (0.66-1.25) mg/dL Estimated GFR > 60.0 ML/MIN Glucose 92 (74-106) mg/dL Lactic Acid (0.4-2.0) Calcium 9.0 (8.4-10.2) mg/dL Magnesium (1.6-2.3) mg/dL Total Bilirubin 0.40 (0.2-1.3) mg/dL AST 19 (17-59) U/L ALT 13 (0-50) U/L Alkaline Phosphatase 40 (38-126) U/L Creatine Kinase 53 L (55-170) U/L Troponin I (0.000-0.034) ng/mL NT-Pro-B Natriuret Pep 60.2 (0-900) pg/mL Serum Total Protein 6.9 (6.3-8.2) g/dL Albumin 4.0 (3.5-5.0) g/dL Amylase (30-110) U/L Lipase (23-300) U/L Urine Color (YELLOW) Urine Appearance (CLEAR) Urine pH (5-6) Ur Specific [place] (1.005-1.025) Urine Protein (Negative) Urine Ketones (NEGATIVE) Urine Blood (0-5) Luther/ul Urine Nitrite (NEGATIVE) Urine Bilirubin (NEGATIVE) Urine Urobilinogen (0-1) mg/dL Ur Leukocyte Esterase (NEGATIVE) Urine WBC (Auto) (0-5) /HPF Urine RBC (Auto) (0-2) /HPF U Epithel Cells (Auto) (FEW) /HPF Urine Bacteria (Auto) (NEGATIVE) /HPF Urine Culture Reflexed (NO) Urine Glucose (NEGATIVE) mg/dL Urine Opiates Level (NEGATIVE) Ur Methadone (NEGATIVE) Urine Barbiturates (NEGATIVE) Ur Phencyclidine (PCP) (NEGATIVE) Urine Amphetamine (NEGATIVE) U Benzodiazepine Level (NEGATIVE) Urine Cocaine (NEGATIVE) Urine Marijuana (THC) (NEGATIVE) Ethyl Alcohol (0-10) mg/dL Influenza Type A Ag (NEGATIVE) Influenza Type B Ag (NEGATIVE) RSV (PCR) (Negative) 03/03/19 03/03/19 03/03/19 Range/Units 10:30 10:30 10:30 WBC (4.0-10.5) K/mm3 RBC (4.1-5.6) M/mm3 Hgb (12.5-18.0) gm/dl Hct (42-50) % MCV (78-100) fl MCH (26-32) pg MCHC (32-36) g/dl RDW (11.5-14.0) % Plt Count (150-450) K/mm3 MPV (6-9.5) fl Gran % (36.0-66.0) % Eos # (Auto) (0-0.5) Absolute Lymphs (auto) (1.0-4.6) Absolute Monos (auto) (0.0-1.3) Lymphocytes % (24.0-44.0) % Monocytes % (0.0-12.0) % Eosinophils % (0.00-5.0) % Basophils % (0.0-0.4) % Absolute Granulocytes (1.4-6.9) Basophils # (0-0.4) PT (8.83-12.87) SECONDS INR (0.8-3.0) APTT (24.1-36.1) SECONDS pO2/FiO2 Ratio % VBG pH (7.32-7.42) VBG pCO2 at Pat Temp (42-55) mm/Hg VBG pO2 at Pat Temp (25-40) mm/Hg VBG HCO3 (22-28) meq/L VBG O2 Sat ([place]) (95-100) VBG Base Excess (-2.0-2.0) VBG Hemoglobin VBG Carboxyhemoglobin (0.0-6.9) % T HGB POC Potassium (3.5-5.1) Sodium (137-145) mmol/L Potassium (3.5-5.1) mmol/L Chloride (98-107) mmol/L Carbon Dioxide (22-30) mmol/L Anion Gap (5-15) MEQ/L BUN (9-20) mg/dL Creatinine (0.66-1.25) mg/dL Estimated GFR ML/MIN Glucose (74-106) mg/dL Lactic Acid (0.4-2.0) Calcium (8.4-10.2) mg/dL Magnesium 2.0 (1.6-2.3) mg/dL Total Bilirubin (0.2-1.3) mg/dL AST (17-59) U/L ALT (0-50) U/L Alkaline Phosphatase (38-126) U/L Creatine Kinase (55-170) U/L Troponin I < 0.012 (0.000-0.034) ng/mL NT-Pro-B Natriuret Pep (0-900) pg/mL Serum Total Protein (6.3-8.2) g/dL Albumin (3.5-5.0) g/dL Amylase 94 (30-110) U/L Lipase 136 (23-300) U/L Urine Color (YELLOW) Urine Appearance (CLEAR) Urine pH (5-6) Ur Specific [place] (1.005-1.025) Urine Protein (Negative) Urine Ketones (NEGATIVE) Urine Blood (0-5) Luther/ul Urine Nitrite (NEGATIVE) Urine Bilirubin (NEGATIVE) Urine Urobilinogen (0-1) mg/dL Ur Leukocyte Esterase (NEGATIVE) Urine WBC (Auto) (0-5) /HPF Urine RBC (Auto) (0-2) /HPF U Epithel Cells (Auto) (FEW) /HPF Urine Bacteria (Auto) (NEGATIVE) /HPF Urine Culture Reflexed (NO) Urine Glucose (NEGATIVE) mg/dL Urine Opiates Level (NEGATIVE) Ur Methadone (NEGATIVE) Urine Barbiturates (NEGATIVE) Ur Phencyclidine (PCP) (NEGATIVE) Urine Amphetamine (NEGATIVE) U Benzodiazepine Level (NEGATIVE) Urine Cocaine (NEGATIVE) Urine Marijuana (THC) (NEGATIVE) Ethyl Alcohol < 10 (0-10) mg/dL Influenza Type A Ag NEGATIVE (NEGATIVE) Influenza Type B Ag NEGATIVE (NEGATIVE) RSV (PCR) NEGATIVE (Negative) 03/03/19 03/03/19 03/03/19 Range/Units 10:45 11:25 11:25 WBC (4.0-10.5) K/mm3 RBC (4.1-5.6) M/mm3 Hgb (12.5-18.0) gm/dl Hct (42-50) % MCV (78-100) fl MCH (26-32) pg MCHC (32-36) g/dl RDW (11.5-14.0) % Plt Count (150-450) K/mm3 MPV (6-9.5) fl Gran % (36.0-66.0) % Eos # (Auto) (0-0.5) Absolute Lymphs (auto) (1.0-4.6) Absolute Monos (auto) (0.0-1.3) Lymphocytes % (24.0-44.0) % Monocytes % (0.0-12.0) % Eosinophils % (0.00-5.0) % Basophils % (0.0-0.4) % Absolute Granulocytes (1.4-6.9) Basophils # (0-0.4) PT (8.83-12.87) SECONDS INR (0.8-3.0) APTT (24.1-36.1) SECONDS pO2/FiO2 Ratio 21.0 % VBG pH 7.38 (7.32-7.42) VBG pCO2 at Pat Temp 44 (42-55) mm/Hg VBG pO2 at Pat Temp 19 L (25-40) mm/Hg VBG HCO3 26.0 (22-28) meq/L VBG O2 Sat ([place]) 37.9 L (95-100) VBG Base Excess 0.6 (-2.0-2.0) VBG Hemoglobin 11.2 VBG Carboxyhemoglobin 7.1 H* (0.0-6.9) % T HGB POC Potassium 4.0 (3.5-5.1) Sodium (137-145) mmol/L Potassium (3.5-5.1) mmol/L Chloride (98-107) mmol/L Carbon Dioxide (22-30) mmol/L Anion Gap (5-15) MEQ/L BUN (9-20) mg/dL Creatinine (0.66-1.25) mg/dL Estimated GFR ML/MIN Glucose (74-106) mg/dL Lactic Acid 1.6 (0.4-2.0) Calcium (8.4-10.2) mg/dL Magnesium (1.6-2.3) mg/dL Total Bilirubin (0.2-1.3) mg/dL AST (17-59) U/L ALT (0-50) U/L Alkaline Phosphatase (38-126) U/L Creatine Kinase (55-170) U/L Troponin I (0.000-0.034) ng/mL NT-Pro-B Natriuret Pep (0-900) pg/mL Serum Total Protein (6.3-8.2) g/dL Albumin (3.5-5.0) g/dL Amylase (30-110) U/L Lipase (23-300) U/L Urine Color YELLOW (YELLOW) Urine Appearance CLEAR (CLEAR) Urine pH 6.0 (5-6) Ur Specific [place] 1.021 (1.005-1.025) Urine Protein NEGATIVE (Negative) Urine Ketones NEGATIVE (NEGATIVE) Urine Blood NEGATIVE (0-5) Luther/ul Urine Nitrite NEGATIVE (NEGATIVE) Urine Bilirubin NEGATIVE (NEGATIVE) Urine Urobilinogen NEGATIVE (0-1) mg/dL Ur Leukocyte Esterase NEGATIVE (NEGATIVE) Urine WBC (Auto) NONE (0-5) /HPF Urine RBC (Auto) NONE (0-2) /HPF U Epithel Cells (Auto) NONE (FEW) /HPF Urine Bacteria (Auto) NONE (NEGATIVE) /HPF Urine Culture Reflexed NO (NO) Urine Glucose NEGATIVE (NEGATIVE) mg/dL Urine Opiates Level NEGATIVE (NEGATIVE) Ur Methadone NEGATIVE (NEGATIVE) Urine Barbiturates NEGATIVE (NEGATIVE) Ur Phencyclidine (PCP) NEGATIVE (NEGATIVE) Urine Amphetamine NEGATIVE (NEGATIVE) U Benzodiazepine Level NEGATIVE (NEGATIVE) Urine Cocaine NEGATIVE (NEGATIVE) Urine Marijuana (THC) NEGATIVE (NEGATIVE) Ethyl Alcohol (0-10) mg/dL Influenza Type A Ag (NEGATIVE) Influenza Type B Ag (NEGATIVE) RSV (PCR) (Negative) 03/03/19 03/03/19 03/03/19 Range/Units 13:35 16:24 16:24 WBC (4.0-10.5) K/mm3 RBC (4.1-5.6) M/mm3 Hgb 8.6 L D (12.5-18.0) gm/dl Hct 26.3 L (42-50) % MCV (78-100) fl MCH (26-32) pg MCHC (32-36) g/dl RDW (11.5-14.0) % Plt Count (150-450) K/mm3 MPV (6-9.5) fl Gran % (36.0-66.0) % Eos # (Auto) (0-0.5) Absolute Lymphs (auto) (1.0-4.6) Absolute Monos (auto) (0.0-1.3) Lymphocytes % (24.0-44.0) % Monocytes % (0.0-12.0) % Eosinophils % (0.00-5.0) % Basophils % (0.0-0.4) % Absolute Granulocytes (1.4-6.9) Basophils # (0-0.4) PT (8.83-12.87) SECONDS INR (0.8-3.0) APTT (24.1-36.1) SECONDS pO2/FiO2 Ratio % VBG pH (7.32-7.42) VBG pCO2 at Pat Temp (42-55) mm/Hg VBG pO2 at Pat Temp (25-40) mm/Hg VBG HCO3 (22-28) meq/L VBG O2 Sat ([place]) (95-100) VBG Base Excess (-2.0-2.0) VBG Hemoglobin VBG Carboxyhemoglobin (0.0-6.9) % T HGB POC Potassium (3.5-5.1) Sodium (137-145) mmol/L Potassium (3.5-5.1) mmol/L Chloride (98-107) mmol/L Carbon Dioxide (22-30) mmol/L Anion Gap (5-15) MEQ/L BUN (9-20) mg/dL Creatinine (0.66-1.25) mg/dL Estimated GFR ML/MIN Glucose (74-106) mg/dL Lactic Acid (0.4-2.0) Calcium (8.4-10.2) mg/dL Magnesium (1.6-2.3) mg/dL Total Bilirubin (0.2-1.3) mg/dL AST (17-59) U/L ALT (0-50) U/L Alkaline Phosphatase (38-126) U/L Creatine Kinase (55-170) U/L Troponin I < 0.012 < 0.012 (0.000-0.034) ng/mL NT-Pro-B Natriuret Pep (0-900) pg/mL Serum Total Protein (6.3-8.2) g/dL Albumin (3.5-5.0) g/dL Amylase (30-110) U/L Lipase (23-300) U/L Urine Color (YELLOW) Urine Appearance (CLEAR) Urine pH (5-6) Ur Specific [place] (1.005-1.025) Urine Protein (Negative) Urine Ketones (NEGATIVE) Urine Blood (0-5) Luther/ul Urine Nitrite (NEGATIVE) Urine Bilirubin (NEGATIVE) Urine Urobilinogen (0-1) mg/dL Ur Leukocyte Esterase (NEGATIVE) Urine WBC (Auto) (0-5) /HPF Urine RBC (Auto) (0-2) /HPF U Epithel Cells (Auto) (FEW) /HPF Urine Bacteria (Auto) (NEGATIVE) /HPF Urine Culture Reflexed (NO) Urine Glucose (NEGATIVE) mg/dL Urine Opiates Level (NEGATIVE) Ur Methadone (NEGATIVE) Urine Barbiturates (NEGATIVE) Ur Phencyclidine (PCP) (NEGATIVE) Urine Amphetamine (NEGATIVE) U Benzodiazepine Level (NEGATIVE) Urine Cocaine (NEGATIVE) Urine Marijuana (THC) (NEGATIVE) Ethyl Alcohol (0-10) mg/dL Influenza Type A Ag (NEGATIVE) Influenza Type B Ag (NEGATIVE) RSV (PCR) (Negative) - Radiology Impressions Radiology Exams & Impressions: Radiology Procedures Category Date Time Status ABDOMEN AND PELVIS W CONTRAST [CT] Stat Exams 03/03/19 11:28 Completed CAROTID BILATERAL [US] Stat Exams 03/03/19 10:13 Completed CHEST 1 VIEW (PORTABLE) Stat Exams 03/03/19 10:09 Completed HEAD WITHOUT CONTRAST [CT] Stat Exams 03/03/19 10:12 Completed - Other Procedures and Tests Respiratory Therapy 03/03/19 13:29 EKG PRN 03/03/19 13:58 Respiratory Therapy Assessment DAILY Assessment/Plan (1) Acute blood loss anemia Current Visit: Yes Status: Acute Assessment & Plan: Hgb dropped from 14.9 on 02/27/19 to 11.7 at 10:30 today in ER to 8.6 at 16:24 today and then passed a BM of dark red blood with clots this evening - transfusion PRBC. Code(s): D62 - ACUTE POSTHEMORRHAGIC ANEMIA (2) Dizziness on standing Current Visit: Yes Status: Acute Assessment & Plan: due to acute blood loss Code(s): R42 - DIZZINESS AND GIDDINESS (3) Hematochezia Current Visit: Yes Status: Acute Assessment & Plan: stool with strands of red blood. Code(s): K92.1 - MELENA (4) Gastrointestinal hemorrhage with melena Current Visit: Yes Status: Acute Assessment & Plan: black tarry stool Code(s): K92.1 - MELENA (5) COPD exacerbation Current Visit: Yes Status: Chronic Onset Date: ~10/06/17 Assessment & Plan: at baseline Code(s): J44.1 - CHRONIC OBSTRUCTIVE PULMONARY DISEASE W (ACUTE) EXACERBATION (6) Enteritis Current Visit: Yes Status: Acute Assessment & Plan: GI panel positive for enteropathic E.Coli -tx IV Levofloxin Code(s): K52.9 - NONINFECTIVE GASTROENTERITIS AND COLITIS, UNSPECIFIED
[2019-03-03 18:39] LABS: Adenovirus F 40/41 NEGATIVE (NEGATIVE); Astrovirus NEGATIVE (NEGATIVE); C. Difficile Organism NEGATIVE (NEGATIVE); Cryptosporidium NEGATIVE (NEGATIVE); Cyclospora cayentanensis NEGATIVE (NEGATIVE); Entamoeaba histolytica NEGATIVE (NEGATIVE); Enteroaggregative E.coli NEGATIVE (NEGATIVE); Enteropathogenic E.coli POSITIVE (NEGATIVE); Enterotoxigenic E.coli NEGATIVE (NEGATIVE); Giardia lamblia NEGATIVE (NEGATIVE); Norovirus GI/GII NEGATIVE (NEGATIVE); Plesiomonas shigelloides NEGATIVE (NEGATIVE); Rotavirus A NEGATIVE (NEGATIVE); Salmonella NEGATIVE (NEGATIVE); Sapovirus NEGATIVE (NEGATIVE); Shiga-like toxin prod.E.coli NEGATIVE (NEGATIVE); Vibrio NEGATIVE (NEGATIVE); Vibrio cholerae NEGATIVE (NEGATIVE); Yersinia enterocolitica NEGATIVE (NEGATIVE)
[2019-03-03 19:11] LABS: Campylobacter NEGATIVE (NEGATIVE)
[2019-03-03 19:26] LABS: ABO TYPING B; Antibody Screen NEGATIVE (NEGATIVE); RH TYPING POSITIVE
[2019-03-03] MEDS: PROVENTIL 2.5 MG/3 ML NEB IH SCH (20:44)
[2019-03-03] MEDS ORDERED: PATIENT OWN MEDICATION IH PRN (20:50)
[2019-03-03] MEDS: PATIENT OWN MEDICATION IH SCH (20:53)
[2019-03-03 20:56] LABS: CROSS MATCH (PRBC) COMPATIBLE (COMPATIBLE)
[2019-03-03] MEDS ORDERED: Sodium Chloride 0.9% 250 ML 250 ML IV SCH (21:00)
[2019-03-03] MEDS ORDERED: Sodium Chloride 0.9% 250 ML 250 ML IV ONE (21:19)
[2019-03-04] MEDS ORDERED: Sodium Chloride 0.9% 250 ML 250 ML IV ONE (00:18)
[2019-03-04 04:22] LABS: Absolute Neutrophil Ct (ANC) 8.36 (1.4-6.9); BASOPHIL % 0.1 % (0.0-0.4); Basophil (Absolute #) 0.01 (0-0.4); Eosinophil % 0.1 % (0.00-5.0); Eosinophil (Absolute #) 0.01 (0-0.5); Lymphocyte (Absolute #) 1.55 (1.0-4.6); Lymphocytes % 14.6 % (24.0-44.0); Mean Corpuscular Hgb Concent. 33.3 g/dl (32-36); Mean Platelet Volume 9.2 fl (6-9.5); Monocyte (Absolute #) 0.71 (0.0-1.3); Monocytes % 6.7 % (0.0-12.0); Neutrophil % 78.5 % (36.0-66.0); Red Cell Distribution Width 15.7 % (11.5-14.0); White Blood Count 10.6 K/mm3 (4.0-10.5)
[2019-03-04 04:25] LABS: Platelet Count 141 K/mm3 (150-450)
[2019-03-04 04:34] LABS: ANION GAP 9.4 MEQ/L (5-15); BLOOD UREA NITROGEN 30 mg/dL (9-20); CHLORIDE 112 mmol/L (98-107); Calcium 7.7 mg/dL (8.4-10.2); Carbon Dioxide 20 mmol/L (22-30); Creatinine 1 0.54 mg/dL (0.66-1.25); Glucose 106 mg/dL (74-106); Potassium 4.5 mmol/L (3.5-5.1); SODIUM 137 mmol/L (137-145)
[2019-03-04] MEDS ORDERED: PROTONIX 40 MG IV IV SCH ×2 (05:00→22:00)
[2019-03-04] MEDS ORDERED: Phenergan 25 MG INJ IVIM PRN (05:06)
[2019-03-04] MEDS: Ativan 2 MG/1 ML VIAL IV PRN ×2 (05:43→17:43)
[2019-03-04] MEDS ORDERED: Sodium Chloride 0.9% 10 ML FLUSH Syringe IV PRN (05:49)
[2019-03-04] MEDS: Sodium Chloride 0.9% 10 ML FLUSH Syringe IV SCH ×2 (05:51→13:39)
[2019-03-04 06:10] LABS: CROSS MATCH (PRBC) COMPATIBLE (COMPATIBLE)
[2019-03-04] MEDS ORDERED: PROVENTIL 2.5 MG/3 ML NEB IH ONE (06:40)
[2019-03-04] MEDS: PROVENTIL 2.5 MG/3 ML NEB IH SCH ×4 (07:40→19:52)
--- NOTE | 2019-03-04 07:49 | CONS ---
CONSULT DATE: 03/03/2019 I am seeing this patient for Dr. Otis Goodwin who is non morse intercept technician for our group today. HISTORY: He is a 63 year-old who came in with weakness and dizziness. His hemoglobin had been 14 and dropped to 11. He had some blood in his stool earlier today. He denies any prior upper or lower endoscopy. He denies any family history of colon, stomach or esophageal cancer. Otherwise, CT scan of the abdomen show possible vague thickening of small bowel possibly enteritis. He had some chronic changes on his CT of the abdomen. No acute intracranial changes. He denies any blood thinner use. He does take an occasional ibuprofen but not on a regular basis. PAST MEDICAL HISTORY: Chronic obstructive pulmonary disease. Arthritis. Few fractures. PAST SURGICAL HISTORY: He denied any prior upper or lower endoscopy. MEDICATIONS: Combivent inhaler, Proventil. ALLERGIES: NKDA. FAMILY HISTORY: He denies any family history of colon, stomach or esophageal cancer. SOCIAL HISTORY: Every day smoker. He does drink some alcohol. REVIEW OF SYSTEMS: Fourteen systems reviewed. A thin gentleman. He drinks some alcohol, chronic smoker and some chronic obstructive pulmonary disease. He denied any chest pain, denies any abdominal pain. He did have a little bit of blood in his stool a day or two ago. Apparently he came in for the weakness and dizziness. Other systems negative or noncontributory as above and per preadmission questionnaire. PHYSICAL EXAMINATION: GENERAL: No acute distress. HEENT: Sclera nonicteric. Oropharynx missing a few teeth. NECK: No JVD. CHEST: Equal excursion, nonlabored breathing. CVS: Regular rate and rhythm. ABDOMEN: Soft, nondistended. No peritoneal signs. EXTREMITIES: No edema. NEURO: Alert, moving extremities grossly symmetrically. LAB DATA AND TESTS: His drug screen is negative. His hemoglobin was in the 11 range. He had been 14 a couple of days ago. His white count is 8.2, PLT 226,000. Lipase is normal. International normalized ratio and PTT were normal. IMPRESSION: Anemia, history of some rectal bleeding unclear etiology. Given his anemia I feel he would benefit from upper and lower endoscopy to evaluate for gastritis, ulcer disease, colitis, neoplasia versus other etiology. He is agreeable to the planned procedure. As I am seeing this patient for Dr. Otis Goodwin, I will check with the office to see if he has time to do it in the next couple of days. Otherwise risk of bleeding or infection, risk of bowel injury or perforation, risk of missed or nondiagnosis or incomplete exam possibly requiring barium enema, other studies or procedures. General risk of bowel prep or sedation but not limited to. He is agreeable. I will check with the office to see when Dr. Otis Goodwin has time in the next couple of days.
[2019-03-04] MEDS: PROTONIX 40 MG IV IV SCH ×2 (09:51→23:18)
[2019-03-04] MEDS ORDERED: PATIENT OWN MEDICATION IH SCH (10:00)
[2019-03-04] MEDS ORDERED: Levofloxacin 500MG/100ML D5W 500 MG/100 ML BAG IV SCH ×2 (10:00)
[2019-03-04] MEDS ORDERED: VITAMIN B-1 100 MG PO SCH (10:00)
[2019-03-04] MEDS ORDERED: THERAGRAN MULTIVITAMIN PO SCH (10:00)
[2019-03-04] MEDS ORDERED: FOLATE 1 MG PO SCH (10:00)
[2019-03-04] MEDS: Sodium Chloride 0.9% 1000 ML 1,000 ML IV SCH ×2 (13:38→19:01)
[2019-03-04 14:07] LABS: Hematocrit 28.8 % (42-50); Hemoglobin 9.7 gm/dl (12.5-18.0)
[2019-03-04] MEDS ORDERED: Golytely Solution 4000 ML PO ONE (15:00)
--- NOTE | 2019-03-04 17:55 | PCM.NOTE ---
Date and Time: 03/04/19 1750 Subjective Assessment: Patient has tolerated transfusion of 4 units of blood overnight through this morning. His Hgb after the first 2 units actually dropped from 8.6 to 8.0 so 2 more units were given. Hgb after 4 units blood was 10.6 but he just passed a large volume of foul smelling tar colored stool.Patient states he is feeling stronger. - Review of Systems Constitutional: No Symptoms (no fever no chills), Weakness (states improved since receiving 4 units of blood lastnight through this morning.) Respiratory: Other (COPD chronic episodic cough and SOB and wheezing all releived with inhalers and neb txs) Cardiac: No Symptoms (light headed upon standing symptom has resolved ), Syncope , No Chest Pain, No Edema Abdominal/Gastrointestinal: Melena (just had a large volume of tarry black stool this evening malodorous like heme-sent for hemocult.), Other (no nausea or vomiting ,is NPO for upper and lower scope jake for tomorrow morning) Genitourinary Symptoms: No Dysuria Psychological: Alcohol Abuse, Anxiety (aggitated and relieved with Ativan this morning. Alcohol withdrawl .States "I am getting out of here tomorrow for a ".His sister in law ) Objective Exam General Appearance: alert, anxiety Neurologic Exam: 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, agitation Skin Exam: warm, dry, other (is suntanned but sallow) Respiratory Exam: diminished breath sounds (no dyspnea,no wheeze or ronchi or rales) Cardiovascular Exam: regular rate/rhythm Gastrointestinal/Abdomen Exam: soft (no distention,nontender,no guarding) Extremity Exam: other (no edema) Rectal Exam: other (is to have Colonoscopy tomorrow) OBJECTIVE DATA Vital Signs: Vital Signs - 24 hr Temp Pulse Resp BP Pulse Ox 03/04/19 15:11 100 H 20 03/04/19 12:54 97.9 F 98 H 20 113/63 98 03/04/19 10:55 100 H 20 03/04/19 08:08 100 H 22 86 L 03/04/19 07:34 99.3 F 118 H 24 98/55 93 L 03/04/19 07:25 98.8 F 104 H 106/59 03/04/19 04:00 98.2 F 99 H 24 93/54 96 03/04/19 00:00 99.8 F 93 H 24 110/58 95 03/03/19 20:44 99 H 36 H 97 03/03/19 20:00 98.8 F 95 H 28 H 93/51 96 Oxygen-Last 24 hours Oxygen Flowrate (L/min)-RT 2 Pain Assessment - Last Documented Pain Intensity 0 Pain Scale Used 0-10 Pain Scale Intake and Output: Intake & Output 03/02/19 03/03/19 03/04/19 03/05/19 11:59 11:59 11:59 11:59 Intake Total 3172 600 Output Total 1075 425 Balance 2672 175 Weight 68.039 kg 65.8 kg Lab Results: Lab Results-Last 24 Hours 03/03/19 03/03/19 03/03/19 Range/Units 16:54 17:27 17:32 WBC (4.0-10.5) K/mm3 RBC (4.1-5.6) M/mm3 Hgb (12.5-18.0) gm/dl Hct (42-50) % MCV (78-100) fl MCH (26-32) pg MCHC (32-36) g/dl RDW (11.5-14.0) % Plt Count (150-450) K/mm3 MPV (6-9.5) fl Gran % (36.0-66.0) % Eos # (Auto) (0-0.5) Absolute Lymphs (auto) (1.0-4.6) Absolute Monos (auto) (0.0-1.3) Lymphocytes % (24.0-44.0) % Monocytes % (0.0-12.0) % Eosinophils % (0.00-5.0) % Basophils % (0.0-0.4) % Absolute Granulocytes (1.4-6.9) Basophils # (0-0.4) Sodium (137-145) mmol/L Potassium (3.5-5.1) mmol/L Chloride (98-107) mmol/L Carbon Dioxide (22-30) mmol/L Anion Gap (5-15) MEQ/L BUN (9-20) mg/dL Creatinine (0.66-1.25) mg/dL Estimated GFR ML/MIN Glucose (74-106) mg/dL Calcium (8.4-10.2) mg/dL Troponin I (0.000-0.034) ng/mL Stl C. cayetanensis PCR NEGATIVE (NEGATIVE) Stl Adenov F 40/41 PCR NEGATIVE (NEGATIVE) Stool Astrovirus (PCR) NEGATIVE (NEGATIVE) Stool Cryptosporidium PCR NEGATIVE (NEGATIVE) Stool EPEC (PCR) POSITIVE A (NEGATIVE) Stool EAEC (PCR) NEGATIVE (NEGATIVE) Stl E. histolytica PCR NEGATIVE (NEGATIVE) Stl P. shigelloides PCR NEGATIVE (NEGATIVE) Stool Sapovirus (PCR) NEGATIVE (NEGATIVE) St Y.enterocolitica PCR NEGATIVE (NEGATIVE) Stool Vibrio (PCR) NEGATIVE (NEGATIVE) Stl Vibrio cholerae PCR NEGATIVE (NEGATIVE) Stl Norovirus GI/GII PCR NEGATIVE (NEGATIVE) Campylobacter (PCR) NEGATIVE (NEGATIVE) C. difficile (PCR) NEGATIVE (NEGATIVE) Enterotoxigenic E. coli NEGATIVE (NEGATIVE) E.coli Shiga Toxins NEGATIVE (NEGATIVE) Giardia lamblia NEGATIVE (NEGATIVE) Rotavirus A (PCR) NEGATIVE (NEGATIVE) Salmonella (PCR) NEGATIVE (NEGATIVE) Shigella (PCR) NEGATIVE (NEGATIVE) ABO Group B Rh Factor POSITIVE Antibody Screen NEGATIVE (NEGATIVE) Crossmatch COMPATIBLE (COMPATIBLE) 03/03/19 03/03/19 03/04/19 Range/Units 17:35 19:42 04:15 WBC (4.0-10.5) K/mm3 RBC (4.1-5.6) M/mm3 Hgb (12.5-18.0) gm/dl Hct (42-50) % MCV (78-100) fl MCH (26-32) pg MCHC (32-36) g/dl RDW (11.5-14.0) % Plt Count (150-450) K/mm3 MPV (6-9.5) fl Gran % (36.0-66.0) % Eos # (Auto) (0-0.5) Absolute Lymphs (auto) (1.0-4.6) Absolute Monos (auto) (0.0-1.3) Lymphocytes % (24.0-44.0) % Monocytes % (0.0-12.0) % Eosinophils % (0.00-5.0) % Basophils % (0.0-0.4) % Absolute Granulocytes (1.4-6.9) Basophils # (0-0.4) Sodium 137 (137-145) mmol/L Potassium 4.5 (3.5-5.1) mmol/L Chloride 112 H (98-107) mmol/L Carbon Dioxide 20 L (22-30) mmol/L Anion Gap 9.4 (5-15) MEQ/L BUN 30 H (9-20) mg/dL Creatinine 0.54 L (0.66-1.25) mg/dL Estimated GFR > 60.0 ML/MIN Glucose 106 (74-106) mg/dL Calcium 7.7 L (8.4-10.2) mg/dL Troponin I < 0.012 (0.000-0.034) ng/mL Stl C. cayetanensis PCR (NEGATIVE) Stl Adenov F 40/41 PCR (NEGATIVE) Stool Astrovirus (PCR) (NEGATIVE) Stool Cryptosporidium PCR (NEGATIVE) Stool EPEC (PCR) (NEGATIVE) Stool EAEC (PCR) (NEGATIVE) Stl E. histolytica PCR (NEGATIVE) Stl P. shigelloides PCR (NEGATIVE) Stool Sapovirus (PCR) (NEGATIVE) St Y.enterocolitica PCR (NEGATIVE) Stool Vibrio (PCR) (NEGATIVE) Stl Vibrio cholerae PCR (NEGATIVE) Stl Norovirus GI/GII PCR (NEGATIVE) Campylobacter (PCR) (NEGATIVE) C. difficile (PCR) (NEGATIVE) Enterotoxigenic E. coli (NEGATIVE) E.coli Shiga Toxins (NEGATIVE) Giardia lamblia (NEGATIVE) Rotavirus A (PCR) (NEGATIVE) Salmonella (PCR) (NEGATIVE) Shigella (PCR) (NEGATIVE) ABO Group Rh Factor Antibody Screen (NEGATIVE) Crossmatch COMPATIBLE (COMPATIBLE) 03/04/19 03/04/19 03/04/19 Range/Units 04:15 05:13 05:13 WBC 10.6 H (4.0-10.5) K/mm3 RBC 2.50 L (4.1-5.6) M/mm3 Hgb 8.0 L (12.5-18.0) gm/dl Hct 24.0 L (42-50) % MCV 96.0 (78-100) fl MCH 32.0 (26-32) pg MCHC 33.3 (32-36) g/dl RDW 15.7 H (11.5-14.0) % Plt Count 141 L D (150-450) K/mm3 MPV 9.2 (6-9.5) fl Gran % 78.5 H (36.0-66.0) % Eos # (Auto) 0.01 (0-0.5) Absolute Lymphs (auto) 1.55 (1.0-4.6) Absolute Monos (auto) 0.71 (0.0-1.3) Lymphocytes % 14.6 L (24.0-44.0) % Monocytes % 6.7 (0.0-12.0) % Eosinophils % 0.1 (0.00-5.0) % Basophils % 0.1 (0.0-0.4) % Absolute Granulocytes 8.36 H (1.4-6.9) Basophils # 0.01 (0-0.4) Sodium (137-145) mmol/L Potassium (3.5-5.1) mmol/L Chloride (98-107) mmol/L Carbon Dioxide (22-30) mmol/L Anion Gap (5-15) MEQ/L BUN (9-20) mg/dL Creatinine (0.66-1.25) mg/dL Estimated GFR ML/MIN Glucose (74-106) mg/dL Calcium (8.4-10.2) mg/dL Troponin I (0.000-0.034) ng/mL Stl C. cayetanensis PCR (NEGATIVE) Stl Adenov F 40/41 PCR (NEGATIVE) Stool Astrovirus (PCR) (NEGATIVE) Stool Cryptosporidium PCR (NEGATIVE) Stool EPEC (PCR) (NEGATIVE) Stool EAEC (PCR) (NEGATIVE) Stl E. histolytica PCR (NEGATIVE) Stl P. shigelloides PCR (NEGATIVE) Stool Sapovirus (PCR) (NEGATIVE) St Y.enterocolitica PCR (NEGATIVE) Stool Vibrio (PCR) (NEGATIVE) Stl Vibrio cholerae PCR (NEGATIVE) Stl Norovirus GI/GII PCR (NEGATIVE) Campylobacter (PCR) (NEGATIVE) C. difficile (PCR) (NEGATIVE) Enterotoxigenic E. coli (NEGATIVE) E.coli Shiga Toxins (NEGATIVE) Giardia lamblia (NEGATIVE) Rotavirus A (PCR) (NEGATIVE) Salmonella (PCR) (NEGATIVE) Shigella (PCR) (NEGATIVE) ABO Group Rh Factor Antibody Screen (NEGATIVE) Crossmatch COMPATIBLE COMPATIBLE (COMPATIBLE) 03/04/19 Range/Units 13:56 WBC (4.0-10.5) K/mm3 RBC (4.1-5.6) M/mm3 Hgb 9.7 L D (12.5-18.0) gm/dl Hct 28.8 L (42-50) % MCV (78-100) fl MCH (26-32) pg MCHC (32-36) g/dl RDW (11.5-14.0) % Plt Count (150-450) K/mm3 MPV (6-9.5) fl Gran % (36.0-66.0) % Eos # (Auto) (0-0.5) Absolute Lymphs (auto) (1.0-4.6) Absolute Monos (auto) (0.0-1.3) Lymphocytes % (24.0-44.0) % Monocytes % (0.0-12.0) % Eosinophils % (0.00-5.0) % Basophils % (0.0-0.4) % Absolute Granulocytes (1.4-6.9) Basophils # (0-0.4) Sodium (137-145) mmol/L Potassium (3.5-5.1) mmol/L Chloride (98-107) mmol/L Carbon Dioxide (22-30) mmol/L Anion Gap (5-15) MEQ/L BUN (9-20) mg/dL Creatinine (0.66-1.25) mg/dL Estimated GFR ML/MIN Glucose (74-106) mg/dL Calcium (8.4-10.2) mg/dL Troponin I (0.000-0.034) ng/mL Stl C. cayetanensis PCR (NEGATIVE) Stl Adenov F 40/41 PCR (NEGATIVE) Stool Astrovirus (PCR) (NEGATIVE) Stool Cryptosporidium PCR (NEGATIVE) Stool EPEC (PCR) (NEGATIVE) Stool EAEC (PCR) (NEGATIVE) Stl E. histolytica PCR (NEGATIVE) Stl P. shigelloides PCR (NEGATIVE) Stool Sapovirus (PCR) (NEGATIVE) St Y.enterocolitica PCR (NEGATIVE) Stool Vibrio (PCR) (NEGATIVE) Stl Vibrio cholerae PCR (NEGATIVE) Stl Norovirus GI/GII PCR (NEGATIVE) Campylobacter (PCR) (NEGATIVE) C. difficile (PCR) (NEGATIVE) Enterotoxigenic E. coli (NEGATIVE) E.coli Shiga Toxins (NEGATIVE) Giardia lamblia (NEGATIVE) Rotavirus A (PCR) (NEGATIVE) Salmonella (PCR) (NEGATIVE) Shigella (PCR) (NEGATIVE) ABO Group Rh Factor Antibody Screen (NEGATIVE) Crossmatch (COMPATIBLE) Radiology Exams: Radiology Procedures Category Date Time Status ABDOMEN AND PELVIS W CONTRAST [CT] Stat Exams 03/03/19 11:28 Completed CAROTID BILATERAL [US] Stat Exams 03/03/19 10:13 Completed CHEST 1 VIEW (PORTABLE) Stat Exams 03/03/19 10:09 Completed HEAD WITHOUT CONTRAST [CT] Stat Exams 03/03/19 10:12 Completed Multi-Disciplinary Progress Notes: Multi-Disciplinary Progress Notes 03/04/19 11:04 Case Management Note by Samira Chatman S/W SATYA AT [facility]- HER PHYSICIAN HAS SPOKE WITH DR. COOLEY AND THEY HAVE CONCLUDED PATIENT IS NOT STABLE ENOUGH FOR TRANSFER AT THIS TIME. WE ARE TO CHECK WITH [facility] AGAIN TOMORROW. WE ARE CONTINUE TREATMENT WE WOULD FOR ANY OTHER PATIENT. Initialized on 03/04/19 11:04 - END OF NOTE 03/04/19 10:24 Case Management Note by Samira Chatman PATIENT GIVEN INFORMATION ON AA MTGS AROUND HIS AREA OF RESIDENCY IF HE IS INTERESTED IN STOPPING DRINKING. Initialized on 03/04/19 10:24 - END OF NOTE Assessment/Plan (1) Acute blood loss anemia Current Visit: Yes Status: Acute Assessment & Plan: improved but still unstable .Large melanotic stool this evening. Follow H/H Code(s): D62 - ACUTE POSTHEMORRHAGIC ANEMIA (2) Gastrointestinal hemorrhage with melena Current Visit: Yes Status: Acute Code(s): K92.1 - MELENA (3) Hematochezia Current Visit: Yes Status: Acute Assessment & Plan: has improved Code(s): K92.1 - MELENA (4) COPD exacerbation Current Visit: Yes Status: Acute Onset Date: ~10/06/17 Assessment & Plan: at baseline with current tx. Code(s): J44.1 - CHRONIC OBSTRUCTIVE PULMONARY DISEASE W (ACUTE) EXACERBATION (5) Dizziness on standing Current Visit: Yes Status: Acute Assessment & Plan: resolved Code(s): R42 - DIZZINESS AND GIDDINESS (6) Enteritis Current Visit: Yes Status: Acute Assessment & Plan: small intestine per CT,GI Panel positive enteropathic E.Coli started IV Levaquin yesterday. Code(s): K52.9 - NONINFECTIVE GASTROENTERITIS AND COLITIS, UNSPECIFIED (7) Agitation Current Visit: Yes Status: Acute Assessment & Plan: alcoholic withdrawl responded to Ativan
[2019-03-04] MEDS: PATIENT OWN MEDICATION IH SCH (19:54)
[2019-03-04 20:15] LABS: Hematocrit 21.7 % (42-50); Hemoglobin 7.2 gm/dl (12.5-18.0)
[2019-03-04] MEDS ORDERED: Sodium Chloride 0.9% 500 ML 500 ML IV ONE (21:27)
[2019-03-04] MEDS: Sodium Chloride 0.9% 500 ML 500 ML IV SCH ×2 (21:51→23:41)
[2019-03-05] MEDS: Sodium Chloride 0.9% 10 ML FLUSH Syringe IV SCH ×2 (00:07→06:06)
[2019-03-05 01:31] LABS: Hematocrit 23.2 % (42-50); Hemoglobin 7.8 gm/dl (12.5-18.0)
[2019-03-05 03:19] LABS: Hematocrit 21.6 % (42-50); Hemoglobin 7.3 gm/dl (12.5-18.0); Mean Cell Volume 92.3 fl (78-100); Mean Corpuscular Hgb Concent. 33.8 g/dl (32-36); Mean Platelet Volume 9.5 fl (6-9.5); Platelet Count 88 K/mm3 (150-450); Red Blood Count 2.34 M/mm3 (4.1-5.6); White Blood Count 7.1 K/mm3 (4.0-10.5)
[2019-03-05 03:24] LABS: Mean Corpuscular Hemoglobin 31.1 pg (26-32)
[2019-03-05] MEDS: Sodium Chloride 0.9% 1000 ML 1,000 ML IV SCH (03:26)
[2019-03-05 03:38] LABS: ANION GAP 5.9 MEQ/L (5-15); BLOOD UREA NITROGEN 27 mg/dL (9-20); CHLORIDE 112 mmol/L (98-107); Calcium 6.9 mg/dL (8.4-10.2); Carbon Dioxide 25 mmol/L (22-30); Creatinine 1 0.63 mg/dL (0.66-1.25); Glucose 85 mg/dL (74-106); NT PRO BNP 64.4 pg/mL (0-900); Potassium 4.1 mmol/L (3.5-5.1); SODIUM 139 mmol/L (137-145)
[2019-03-05] MEDS ORDERED: Sodium Chloride 0.9% 500 ML 500 ML IV SCH (04:40)
[2019-03-05 05:18] LABS: INR 1.23 (0.8-3.0); PROTIME 13.9 SECONDS (8.83-12.87)
[2019-03-05 05:20] LABS: Lactic Acid 2.7 (0.4-2.0)
[2019-03-05 05:21] LABS: PTT 25.2 SECONDS (24.1-36.1)
[2019-03-05 05:21] LABS: A-aADO2 108; ABG HEMOGLOBIN 9.1; ABG POTASSIUM 4.1 (3.5-5.1); ARTERIAL BLD GAS O2 SATURATION 98.4 % (95-100); ARTERIAL BLOOD GAS BASE EXCESS -4.4 (-2.0-2.0); ARTERIAL BLOOD GAS FIO2 36 %; ARTERIAL BLOOD GAS PCO2 26 mmHg (35-45); ARTERIAL BLOOD GAS PO2 116 mmHg (75-100); ARTERIAL BLOOD GAS pH 7.46 (7.35-7.45); CARBOXYHEMOGLOBIN 1.2 % THgb (0.0-6.9); HCO3- 18.5 (22-28); HGB O2 SAT 96.3 g/dF (94-100); paO2 pAO1 0.52
[2019-03-05 05:22] LABS: ABG SITE RIGHT RADIAL; ALLEN TEST OK? y
[2019-03-05] MEDS ORDERED: LEVOPHED 4 MG/4 ML 4,000 MCG in Dextrose 5%/Water IV Soln. 500 ML 500 ML IV PRN (05:30)
[2019-03-05 05:37] LABS: Hematocrit 27.5 % (42-50); Mean Cell Volume 89.9 fl (78-100); Mean Corpuscular Hgb Concent. 33.8 g/dl (32-36); Mean Platelet Volume 9.3 fl (6-9.5); Platelet Count 70 K/mm3 (150-450); Red Blood Count 3.06 M/mm3 (4.1-5.6); Red Cell Distribution Width 15.6 % (11.5-14.0); White Blood Count 12.1 K/mm3 (4.0-10.5)
[2019-03-05 05:43] LABS: Hemoglobin 9.3 gm/dl (12.5-18.0); Mean Corpuscular Hemoglobin 30.3 pg (26-32)
[2019-03-05] MEDS ORDERED: DIPRIVAN 200 MG/20 ML IV ONE ×2 (05:50→06:14)
[2019-03-05] MEDS ORDERED: Ketamine HCl 50 MG/ML ONE (05:51)
[2019-03-05 05:58] LABS: ALBUMIN 1.6 g/dL (3.5-5.0); ANION GAP 9.5 MEQ/L (5-15); BLOOD UREA NITROGEN 28 mg/dL (9-20); CHLORIDE 112 mmol/L (98-107); Calcium 6.8 mg/dL (8.4-10.2); Carbon Dioxide 21 mmol/L (22-30); Creatinine 1 0.74 mg/dL (0.66-1.25); Glucose 160 mg/dL (74-106); Potassium 4.3 mmol/L (3.5-5.1); SGOT/AST 17 U/L (17-59); SGPT/ALT 11 U/L (0-50); SODIUM 139 mmol/L (137-145); Total Protein 3.2 g/dL (6.3-8.2)
[2019-03-05 05:59] LABS: ALKALINE PHOSPHATASE < 20 U/L (38-126)
[2019-03-05] MEDS: Sodium Chloride 0.9% 500 ML 500 ML IV SCH ×2 (06:06→07:46)
[2019-03-05] MEDS ORDERED: EPINEPHRINE 1MG/ML AMP ONE (06:12)
[2019-03-05 06:20] LABS: A-aADO2 179; ABG POTASSIUM 4.3 (3.5-5.1); ARTERIAL BLD GAS O2 SATURATION 94.5 % (95-100); ARTERIAL BLOOD GAS FIO2 44 %; ARTERIAL BLOOD GAS PCO2 57 mmHg (35-45); ARTERIAL BLOOD GAS PO2 63 mmHg (75-100); HCO3- 20.3 (22-28); HGB O2 SAT 91.9 g/dF (94-100); Methhemoglobin 0.8 % (1.4-1.5); paO2 pAO1 0.26
[2019-03-05 06:21] LABS: ABG HEMOGLOBIN 7.7; ABG SITE ARTERIAL LINE; ARTERIAL BLOOD GAS pH 7.16 (7.35-7.45)
[2019-03-05] MEDS ORDERED: PHENYLEPHRINE HCL ONE (06:28)
[2019-03-05] MEDS ORDERED: Sodium Chloride 0.9% 1000 ML 1,000 ML ONE (06:36)
[2019-03-05] MEDS ORDERED: Heparin 25,000 units/D5W 250ML PREMIX 25,000 UNITS/250 ML BAG IV ONE (07:25)
[2019-03-05] MEDS ORDERED: Zofran 4 MG/2 ML VIAL ONE (07:37)
[2019-03-05] MEDS ORDERED: Sodium Bicarbonate 50 MEQ/50 ML VIAL IV ONE (07:42)
[2019-03-05] MEDS ORDERED: PROTONIX 40 MG IV*** 80 MG in Sodium Chloride 0.9% 500 ML 500 ML IV SCH (08:15)
[2019-03-05 08:41] LABS: A-aADO2 171; ABG POTASSIUM 3.9 (3.5-5.1); ARTERIAL BLD GAS O2 SATURATION 98.4 % (95-100); ARTERIAL BLOOD GAS BASE EXCESS -3.2 (-2.0-2.0); ARTERIAL BLOOD GAS FIO2 44 %; ARTERIAL BLOOD GAS PCO2 39 mmHg (35-45); ARTERIAL BLOOD GAS PO2 94 mmHg (75-100); ARTERIAL BLOOD GAS pH 7.36 (7.35-7.45); CARBOXYHEMOGLOBIN 1.1 % THgb (0.0-6.9); HGB O2 SAT 96.2 g/dF (94-100); Methhemoglobin 1.1 % (1.4-1.5); paO2 pAO1 0.35
[2019-03-05 08:42] LABS: ABG SITE ART LINE
[2019-03-05 09:43] LABS: Slide Review YES
[2019-03-05] MEDS ORDERED: Nicoderm CQ 21 MG TOP SCH (10:00)
--- NOTE | 2019-03-05 10:09 | PCM.NOTE ---
Date and Time: 03/05/19947 Subjective Assessment: Patient became unstable during the night passing large volumes of dark red blood . The stool had been tarry then red after starting Golytely prep. He had finished about half of the prep which led to diarrhea then uncontrollable rectal bleed. Rapid response was called and B/P stabilized with Levophed drip and ongoing transfuions of PRBC and FFP.Dr Disla was called in for stat scope -EGD which showed Duodenal Ulcer(D1) cauterized succfessfully.Patient has not had any further bleeding rectally and has been weened of Levophed drip. OBJECTIVE DATA Vital Signs: Vital Signs - 24 hr Temp Pulse Resp BP Pulse Ox 03/05/19 09:30 98.1 F 90 26 H 112/58 97 03/05/19 09:21 90.4 F 96 H 21 121/61 03/05/19 08:55 85 23 140/81 100 03/05/19 08:30 85 20 132/78 99 03/05/19 08:15 85 25 H 127/72 100 03/05/19 08:00 97.3 F 88 26 H 130/75 100 03/05/19 07:30 79 24 97 03/05/19 06:09 98.3 F 135 H 33 H 88/64 100 03/05/19 06:00 91 H 25 H 123/81 96 03/05/19 04:00 98.3 F 97 H 22 119/57 100 03/05/19 00:00 97.4 F 93 H 23 104/57 94 L 03/04/19 20:00 97.5 F 99 H 18 115/70 98 03/04/19 19:55 94 H 18 93 L 03/04/19 16:00 98.3 F 88 20 129/70 96 03/04/19 15:11 100 H 20 03/04/19 12:54 97.9 F 98 H 20 113/63 98 03/04/19 10:55 100 H 20 Oxygen-Last 24 hours O2 Percentage 6 Liters = 44% O2 Percentage 6 Liters = 44% O2 Percentage 6 Liters = 44% O2 Percentage 6 Liters = 44% O2 Percentage 6 Liters = 44% O2 Percentage 2 Liters = 28% O2 Percentage 2 Liters = 28% O2 Percentage 2 Liters = 28% Oxygen Flowrate (L/min)-RT 2 Pain Assessment - Last Documented Pain Intensity 0 Pain Scale Used 0-10 Pain Scale,FLACC Intake and Output: Intake & Output 03/02/19 03/03/19 03/04/19 03/05/19 11:59 11:59 11:59 11:59 Intake Total 3172 6329 Output Total 1075 263 Balance 1094 1773 Weight 68.039 kg 65.8 kg 65.8 kg Lab Results: Lab Results-Last 24 Hours 03/04/19 03/04/19 03/04/19 Range/Units 13:56 19:28 20:13 WBC (4.0-10.5) K/mm3 RBC (4.1-5.6) M/mm3 Hgb 9.7 L D 7.2 L D (12.5-18.0) gm/dl Hct 28.8 L 21.7 L (42-50) % MCV (78-100) fl MCH (26-32) pg MCHC (32-36) g/dl RDW (11.5-14.0) % Plt Count (150-450) K/mm3 MPV (6-9.5) fl PT (8.83-12.87) SECONDS INR (0.8-3.0) APTT (24.1-36.1) SECONDS Puncture Site pCO2 (35-45) mmHg pO2 (75-100) mmHg Base Excess (-2.0-2.0) O2 Saturation (94-100) g/dF ABG pH (7.35-7.45) ABG HCO3 (22-28) ABG O2 Sat (Measured) (95-100) % Devon Test A-a Gradient a/A Ratio Hemoglobin Carboxyhemoglobin (0.0-6.9) % THgb Methemoglobin (1.4-1.5) % Temperature C POC O2 Flow Rate % Sodium (137-145) mmol/L Potassium (3.5-5.1) mmol/L Chloride (98-107) mmol/L Carbon Dioxide (22-30) mmol/L Anion Gap (5-15) MEQ/L BUN (9-20) mg/dL Creatinine (0.66-1.25) mg/dL Estimated GFR ML/MIN Glucose (74-106) mg/dL Lactic Acid (0.4-2.0) Calcium (8.4-10.2) mg/dL Total Bilirubin (0.2-1.3) mg/dL AST (17-59) U/L ALT (0-50) U/L Alkaline Phosphatase (38-126) U/L NT-Pro-B Natriuret Pep (0-900) pg/mL Serum Total Protein (6.3-8.2) g/dL Albumin (3.5-5.0) g/dL Stool Occult Blood POSITIVE A (Negative) Slides for Path Review Crossmatch (COMPATIBLE) 03/04/19 03/04/19 03/05/19 Range/Units 20:50 20:50 01:28 WBC (4.0-10.5) K/mm3 RBC (4.1-5.6) M/mm3 Hgb 7.8 L (12.5-18.0) gm/dl Hct 23.2 L (42-50) % MCV (78-100) fl MCH (26-32) pg MCHC (32-36) g/dl RDW (11.5-14.0) % Plt Count (150-450) K/mm3 MPV (6-9.5) fl PT (8.83-12.87) SECONDS INR (0.8-3.0) APTT (24.1-36.1) SECONDS Puncture Site pCO2 (35-45) mmHg pO2 (75-100) mmHg Base Excess (-2.0-2.0) O2 Saturation (94-100) g/dF ABG pH (7.35-7.45) ABG HCO3 (22-28) ABG O2 Sat (Measured) (95-100) % Devon Test A-a Gradient a/A Ratio Hemoglobin Carboxyhemoglobin (0.0-6.9) % THgb Methemoglobin (1.4-1.5) % Temperature C POC O2 Flow Rate % Sodium (137-145) mmol/L Potassium (3.5-5.1) mmol/L Chloride (98-107) mmol/L Carbon Dioxide (22-30) mmol/L Anion Gap (5-15) MEQ/L BUN (9-20) mg/dL Creatinine (0.66-1.25) mg/dL Estimated GFR ML/MIN Glucose (74-106) mg/dL Lactic Acid (0.4-2.0) Calcium (8.4-10.2) mg/dL Total Bilirubin (0.2-1.3) mg/dL AST (17-59) U/L ALT (0-50) U/L Alkaline Phosphatase (38-126) U/L NT-Pro-B Natriuret Pep (0-900) pg/mL Serum Total Protein (6.3-8.2) g/dL Albumin (3.5-5.0) g/dL Stool Occult Blood (Negative) Slides for Path Review Crossmatch COMPATIBLE COMPATIBLE (COMPATIBLE) 03/05/19 03/05/19 03/05/19 Range/Units 03:00 03:14 03:14 WBC 7.1 (4.0-10.5) K/mm3 RBC 2.34 L (4.1-5.6) M/mm3 Hgb 7.3 L (12.5-18.0) gm/dl Hct 21.6 L (42-50) % MCV 92.3 (78-100) fl MCH 31.1 (26-32) pg MCHC 33.8 (32-36) g/dl RDW 17.0 H (11.5-14.0) % Plt Count 88 L D (150-450) K/mm3 MPV 9.5 (6-9.5) fl PT 13.9 H (8.83-12.87) SECONDS INR 1.23 (0.8-3.0) APTT 25.2 (24.1-36.1) SECONDS Puncture Site pCO2 (35-45) mmHg pO2 (75-100) mmHg Base Excess (-2.0-2.0) O2 Saturation (94-100) g/dF ABG pH (7.35-7.45) ABG HCO3 (22-28) ABG O2 Sat (Measured) (95-100) % Devon Test A-a Gradient a/A Ratio Hemoglobin Carboxyhemoglobin (0.0-6.9) % THgb Methemoglobin (1.4-1.5) % Temperature C POC O2 Flow Rate % Sodium 139 (137-145) mmol/L Potassium 4.1 (3.5-5.1) mmol/L Chloride 112 H (98-107) mmol/L Carbon Dioxide 25 (22-30) mmol/L Anion Gap 5.9 (5-15) MEQ/L BUN 27 H (9-20) mg/dL Creatinine 0.63 L (0.66-1.25) mg/dL Estimated GFR > 60.0 ML/MIN Glucose 85 (74-106) mg/dL Lactic Acid (0.4-2.0) Calcium 6.9 L (8.4-10.2) mg/dL Total Bilirubin (0.2-1.3) mg/dL AST (17-59) U/L ALT (0-50) U/L Alkaline Phosphatase (38-126) U/L NT-Pro-B Natriuret Pep 64.4 (0-900) pg/mL Serum Total Protein (6.3-8.2) g/dL Albumin (3.5-5.0) g/dL Stool Occult Blood (Negative) Slides for Path Review Crossmatch (COMPATIBLE) 03/05/19 03/05/19 03/05/19 Range/Units 03:16 03:16 05:15 WBC (4.0-10.5) K/mm3 RBC (4.1-5.6) M/mm3 Hgb (12.5-18.0) gm/dl Hct (42-50) % MCV (78-100) fl MCH (26-32) pg MCHC (32-36) g/dl RDW (11.5-14.0) % Plt Count (150-450) K/mm3 MPV (6-9.5) fl PT (8.83-12.87) SECONDS INR (0.8-3.0) APTT (24.1-36.1) SECONDS Puncture Site RIGHT RADIAL pCO2 26 L (35-45) mmHg pO2 116 H (75-100) mmHg Base Excess -4.4 L (-2.0-2.0) O2 Saturation 96.3 (94-100) g/dF ABG pH 7.46 H (7.35-7.45) ABG HCO3 18.5 L (22-28) ABG O2 Sat (Measured) 98.4 (95-100) % Devon Test y A-a Gradient 108 a/A Ratio 0.52 Hemoglobin 9.1 Carboxyhemoglobin 1.2 (0.0-6.9) % THgb Methemoglobin 1.0 L (1.4-1.5) % Temperature 37.0 C POC O2 Flow Rate 36 % Sodium (137-145) mmol/L Potassium 4.1 (3.5-5.1) mmol/L Chloride (98-107) mmol/L Carbon Dioxide (22-30) mmol/L Anion Gap (5-15) MEQ/L BUN (9-20) mg/dL Creatinine (0.66-1.25) mg/dL Estimated GFR ML/MIN Glucose (74-106) mg/dL Lactic Acid (0.4-2.0) Calcium (8.4-10.2) mg/dL Total Bilirubin (0.2-1.3) mg/dL AST (17-59) U/L ALT (0-50) U/L Alkaline Phosphatase (38-126) U/L NT-Pro-B Natriuret Pep (0-900) pg/mL Serum Total Protein (6.3-8.2) g/dL Albumin (3.5-5.0) g/dL Stool Occult Blood (Negative) Slides for Path Review Crossmatch COMPATIBLE COMPATIBLE (COMPATIBLE) 03/05/19 03/05/19 03/05/19 Range/Units 05:15 05:30 05:30 WBC 12.1 H (4.0-10.5) K/mm3 RBC 3.06 L (4.1-5.6) M/mm3 Hgb 9.3 L D (12.5-18.0) gm/dl Hct 27.5 L (42-50) % MCV 89.9 (78-100) fl MCH 30.3 (26-32) pg MCHC 33.8 (32-36) g/dl RDW 15.6 H (11.5-14.0) % Plt Count 70 L (150-450) K/mm3 MPV 9.3 (6-9.5) fl PT (8.83-12.87) SECONDS INR (0.8-3.0) APTT (24.1-36.1) SECONDS Puncture Site pCO2 (35-45) mmHg pO2 (75-100) mmHg Base Excess (-2.0-2.0) O2 Saturation (94-100) g/dF ABG pH (7.35-7.45) ABG HCO3 (22-28) ABG O2 Sat (Measured) (95-100) % Devon Test A-a Gradient a/A Ratio Hemoglobin Carboxyhemoglobin (0.0-6.9) % THgb Methemoglobin (1.4-1.5) % Temperature C POC O2 Flow Rate % Sodium 139 (137-145) mmol/L Potassium 4.3 (3.5-5.1) mmol/L Chloride 112 H (98-107) mmol/L Carbon Dioxide 21 L (22-30) mmol/L Anion Gap 9.5 (5-15) MEQ/L BUN 28 H (9-20) mg/dL Creatinine 0.74 (0.66-1.25) mg/dL Estimated GFR > 60.0 ML/MIN Glucose 160 H (74-106) mg/dL Lactic Acid 2.7 H (0.4-2.0) Calcium 6.8 L (8.4-10.2) mg/dL Total Bilirubin 0.30 (0.2-1.3) mg/dL AST 17 (17-59) U/L ALT 11 (0-50) U/L Alkaline Phosphatase < 20 L (38-126) U/L NT-Pro-B Natriuret Pep (0-900) pg/mL Serum Total Protein 3.2 L (6.3-8.2) g/dL Albumin 1.6 L (3.5-5.0) g/dL Stool Occult Blood (Negative) Slides for Path Review YES Crossmatch (COMPATIBLE) 03/05/19 03/05/19 03/05/19 Range/Units 05:40 05:40 06:09 WBC (4.0-10.5) K/mm3 RBC (4.1-5.6) M/mm3 Hgb (12.5-18.0) gm/dl Hct (42-50) % MCV (78-100) fl MCH (26-32) pg MCHC (32-36) g/dl RDW (11.5-14.0) % Plt Count (150-450) K/mm3 MPV (6-9.5) fl PT (8.83-12.87) SECONDS INR (0.8-3.0) APTT (24.1-36.1) SECONDS Puncture Site ARTERIAL LINE pCO2 57 H (35-45) mmHg pO2 63 L (75-100) mmHg Base Excess -8.0 L (-2.0-2.0) O2 Saturation 91.9 L (94-100) g/dF ABG pH 7.16 L* (7.35-7.45) ABG HCO3 20.3 L (22-28) ABG O2 Sat (Measured) 94.5 L (95-100) % Devon Test NOT APPLICABLE A-a Gradient 179 a/A Ratio 0.26 Hemoglobin 7.7 L* Carboxyhemoglobin 2.0 (0.0-6.9) % THgb Methemoglobin 0.8 L (1.4-1.5) % Temperature 37.0 C POC O2 Flow Rate 44 % Sodium (137-145) mmol/L Potassium 4.3 (3.5-5.1) mmol/L Chloride (98-107) mmol/L Carbon Dioxide (22-30) mmol/L Anion Gap (5-15) MEQ/L BUN (9-20) mg/dL Creatinine (0.66-1.25) mg/dL Estimated GFR ML/MIN Glucose (74-106) mg/dL Lactic Acid (0.4-2.0) Calcium (8.4-10.2) mg/dL Total Bilirubin (0.2-1.3) mg/dL AST (17-59) U/L ALT (0-50) U/L Alkaline Phosphatase (38-126) U/L NT-Pro-B Natriuret Pep (0-900) pg/mL Serum Total Protein (6.3-8.2) g/dL Albumin (3.5-5.0) g/dL Stool Occult Blood (Negative) Slides for Path Review Crossmatch COMPATIBLE COMPATIBLE (COMPATIBLE) 03/05/19 03/05/19 Range/Units 08:33 08:33 WBC (4.0-10.5) K/mm3 RBC (4.1-5.6) M/mm3 Hgb (12.5-18.0) gm/dl Hct (42-50) % MCV (78-100) fl MCH (26-32) pg MCHC (32-36) g/dl RDW (11.5-14.0) % Plt Count (150-450) K/mm3 MPV (6-9.5) fl PT (8.83-12.87) SECONDS INR (0.8-3.0) APTT (24.1-36.1) SECONDS Puncture Site ART LINE pCO2 39 (35-45) mmHg pO2 94 (75-100) mmHg Base Excess -3.2 L (-2.0-2.0) O2 Saturation 96.2 (94-100) g/dF ABG pH 7.36 (7.35-7.45) ABG HCO3 22.0 (22-28) ABG O2 Sat (Measured) 98.4 (95-100) % Devon Test N/A A-a Gradient 171 a/A Ratio 0.35 Hemoglobin 8.0 Carboxyhemoglobin 1.1 (0.0-6.9) % THgb Methemoglobin 1.1 L (1.4-1.5) % Temperature 37.0 C POC O2 Flow Rate 44 % Sodium (137-145) mmol/L Potassium 3.9 (3.5-5.1) mmol/L Chloride (98-107) mmol/L Carbon Dioxide (22-30) mmol/L Anion Gap (5-15) MEQ/L BUN (9-20) mg/dL Creatinine (0.66-1.25) mg/dL Estimated GFR ML/MIN Glucose (74-106) mg/dL Lactic Acid 1.5 (0.4-2.0) Calcium (8.4-10.2) mg/dL Total Bilirubin (0.2-1.3) mg/dL AST (17-59) U/L ALT (0-50) U/L Alkaline Phosphatase (38-126) U/L NT-Pro-B Natriuret Pep (0-900) pg/mL Serum Total Protein (6.3-8.2) g/dL Albumin (3.5-5.0) g/dL Stool Occult Blood (Negative) Slides for Path Review Crossmatch (COMPATIBLE) Radiology Exams: Radiology Procedures Category Date Time Status ABDOMEN AND PELVIS W CONTRAST [CT] Stat Exams 03/03/19 11:28 Completed CAROTID BILATERAL [US] Stat Exams 03/03/19 10:13 Completed CHEST 1 VIEW (PORTABLE) Stat Exams 03/03/19 10:09 Completed HEAD WITHOUT CONTRAST [CT] Stat Exams 03/03/19 10:12 Completed Multi-Disciplinary Progress Notes: Multi-Disciplinary Progress Notes 03/04/19 11:04 Case Management Note by Samira Chatman S/W [facility]- HER PHYSICIAN HAS SPOKE WITH DR. COOLEY AND THEY HAVE CONCLUDED PATIENT IS NOT STABLE ENOUGH FOR TRANSFER AT THIS TIME. WE ARE TO CHECK WITH [facility] AGAIN TOMORROW. WE ARE CONTINUE TREATMENT WE WOULD FOR ANY OTHER PATIENT. Initialized on 03/04/19 11:04 - END OF NOTE 03/04/19 10:24 Case Management Note by Samira Chatman PATIENT GIVEN INFORMATION ON [facility] MTGS AROUND HIS AREA OF RESIDENCY IF HE IS INTERESTED IN STOPPING DRINKING. Initialized on 03/04/19 10:24 - END OF NOTE Assessment/Plan (1) Acute blood loss anemia Current Visit: Yes Status: Acute Code(s): D62 - ACUTE POSTHEMORRHAGIC ANEMIA (2) Dizziness on standing Current Visit: Yes Status: Acute Code(s): R42 - DIZZINESS AND GIDDINESS (3) Hematochezia Current Visit: Yes Status: Acute Code(s): K92.1 - MELENA (4) Gastrointestinal hemorrhage with melena Current Visit: Yes Status: Acute Code(s): K92.1 - MELENA (5) COPD exacerbation Current Visit: Yes Status: Chronic Onset Date: ~10/06/17 Code(s): J44.1 - CHRONIC OBSTRUCTIVE PULMONARY DISEASE W (ACUTE) EXACERBATION (6) Enteritis Current Visit: Yes Status: Acute Code(s): K52.9 - NONINFECTIVE GASTROENTERITIS AND COLITIS, UNSPECIFIED
[2019-03-05 10:17] VITALS: BP 111/52; PULSE 99; O2SAT 100
--- NOTE | 2019-03-05 15:12 | OP ---
SURGERY DATE/TIME: 03/05/2019 0550 PREOPERATIVE DIAGNOSIS: GI bleed. POSTOPERATIVE DIAGNOSES: 1) Upper GI bleed. 2) A 2 cm D1 duodenal ulcer bleeding. PROCEDURE: EGD with epinephrine injection, quick application, bipolar cauterization of actively bleeding duodenal ulcer. SURGEON: Dr. Otis Goodwin ANESTHESIA: MAC. INDICATIONS: The patient is a 63 year-old male who was admitted to the hospital with a GI bleed. He has a history of alcohol abuse and tobacco abuse as well as epigastric abdominal pain for a number of months. It is unclear where the initial source of bleeding was because the patient was having bright red blood per rectum as well as some darker stools. Upon evaluation on 03/04/2019, the patient was undergoing a bowel preparation for planned EGD and colonoscopy. He did have bloody bowel movements on the first night of admission requiring blood transfusion. He was hemodynamically stable and had a good hemoglobin response. On my evaluation in the afternoon he was stable, had not had a bloody bowel movement in a number of hours and his bowel movements had cleared up and had been started on bowel preparation. At that time it was decided to continue with bowel preparation and EGD and colonoscopy would be the following morning. However that night he developed bloody bowel movements, tachycardia as well as hypotension. He was transferred to the ICU and received a total of 4 units of red blood cells. I was notified early in the morning and they prepared the patient for an emergent EGD. On my arrival the patient had a heart rate of 90, blood pressure was 100/50. He was awake and mentating. Risks, benefits and alternatives were discussed with the patient and he elected to proceed with EGD. DESCRIPTION OF PROCEDURE AND FINDINGS: MAC anesthesia was induced. Time out was performed. The patient was put in left lateral decubitus position. The scope was introduced. This was advanced into the stomach. The gastroesophageal junction was normal without any varices. There was copious blood in the stomach, this was mostly able to be suctioned out. However there was blood pooling preventing complete visualization of the stomach. The scope was advanced through the pylorus. There was some blood in the duodenum this was suctioned and irrigated out. There was an approximate 2 to 3 cm ulcer in the first portion of the duodenum. There was friable mucosa with some submucosal hematoma. There was some mild oozing in the ulcer base. The scope was advanced to the distal duodenum and this was relatively clean. There was excellent visualization and there were no other abnormalities distally. The scope was withdrawn back to D1 and the ulcer was irrigated and evaluated. Epinephrine 10 cc of 1:10,000 was injected in quadrant. Clip was introduced. However there were only two EndoClips in the hospital. The first EndoClip on retraction fell apart and was unusable. One prong was still attached and removed with the clip oceanology teacher. The other prong was left incidental. The second EndoClip was introduced in attempt at mucosal approximation of the ulcer was attempted this was unsatisfactory. The gold probe bipolar cautery was advanced and the ulcer was cauterized with good response of tissue throughout. The ulcer is then again irrigated. There was excellent hemostasis. The scope was withdrawn in the stomach. It was retroflexed and most of the stomach was able to be visualized and there were no other ulcers. There was no significant gastritis. The gastroesophageal junction was again evaluated and there were no varices. The stomach was suctioned and the scope was withdrawn. Overall, the patient tolerated the procedure reasonably. On propofol induction the patient did become hypotensive. He did require pressors during the procedure. However after propofol infusion was stopped the hemodynamics significantly improved. He did have ongoing blood and FFP transfusion which was continued in the ICU afterwards. He awoke and was mentating with a blood pressure of 110/60 with a heart rate of 80 in the ICU after the procedure. There was discussion with the family as well as Dr. Figueroa the primary physician and their plans for transfer to a tertiary center in case the patient rebleeds he may need further endoscopy and there are no more supplies at our facility as well as he may need GBA embolization or possibly surgery.
== END 2019-03-05 10:45 | DRG 378 ==
LOC: ED 09:51 → MED SURG 13:22 → OBSVTOIN 03-04 04:15 → ED 03-04 09:51 → ICU 03-05 04:21 → MED SURG 03-05 13:22
PROVIDERS: ADMIT Family Medicine; ATTEND Family Medicine
PROC: 3E0G8GC Introduction of Other Therapeutic Substance into Upper GI, Via Natural or Artificial Opening Endoscopic (ICD-10-PCS; principal; 2019-03-05)
PROC: 0W3P8ZZ Control Bleeding in Gastrointestinal Tract, Via Natural or Artificial Opening Endoscopic (ICD-10-PCS; 2019-03-05)
DX: K26.0 Acute duodenal ulcer with hemorrhage (principal); D62 Acute posthemorrhagic anemia; J44.1 Chronic obstructive pulmonary disease with (acute) exacerbation; R42 Dizziness and giddiness; K92.1 Melena; R10.9 Unspecified abdominal pain; K52.9 Noninfective gastroenteritis and colitis, unspecified; F10.10 Alcohol abuse, uncomplicated; R45.1 Restlessness and agitation; F41.9 Anxiety disorder, unspecified; Z79.899 Other long term (current) drug therapy; F17.200 Nicotine dependence, unspecified, uncomplicated
CPT/HCPCS: 36415; 36430; 36600; 36620; 70450; 71045; 74177; 80048; 80053; 80307; 81001; 82150; 82272; 82375; 82550; 82803; 82805; 83605; 83690; 83735; 83880; 84484; 85014; 85018; 85025; 85027; 85610; 85730; 86850; 86900; 86901; 86922; 86931; 87040; 87507; 87631; 93005; 93041; 93880; 94150; 94640; 94760; 94762; 96360; 96374; 99285; 99291; J0171; J1644; J1956; J2060; J2370; J2405; J2550; J2704; J2930; J7609; P9016; P9017; A9270-GY; G0378; G0480

== ENCOUNTER 2019-03-12 21:43 | Emergency (ER) | payer MEDICARE ==
[2019-03-12] MEDS ORDERED: Sodium Chloride 0.9% 1000 ML 1,000 ML IV STA (22:44)
[2019-03-12] MEDS ORDERED: PROTONIX 40 MG IV*** 80 MG in Sodium Chloride 0.9% 500 ML 500 ML IV SCH (22:45)
[2019-03-12] MEDS ORDERED: PROTONIX 40 MG IV IV ONE ×3 (22:46→23:32)
--- NOTE | 2019-03-12 22:59 | ERPHSYRPT ---
- History of Present Illness Time Seen by Provider: 03/12/19 22:07 Source: patient Exam Limitations: no limitations Patient Subjective Stated Complaint: pt states that he had BM today and seen dark blood, pt has recently discharged for bleeding ulcer, pt states that he was discharged from the [facility] on sunday, pt states that he had 4 units from [facility] and 10-11 units here, pt states the he gets light headed when he stands Triage Nursing Assessment: pt ambulated into the ER, pt came from home, pt has hyperactive bowel sounds, abdomen is flat, pt states no pain, vitals wnl Physician History: 63 years old male with history of tobacco abuse, alcohol abuse,, recent GI bleed needing multiple transfusion and cauterization/embolization, got discharged from [facility] presented to the ER after he noticed darker stools with some dark blood prior to arrival.. Patient denies any bright red blood. Denies any abdominal pain nausea or vomiting. He's not been taking any PPIs. He denies alcohol use since discharge from hospital. Patient feels generally weak and tired. He denies any abdominal bloating or cramping sensations. No diarrhea.he denies any chest pain, palpitations or shortness of breath. Denies any dizziness or lightheadedness. Timing/Duration: today Severity: moderate Associated Symptoms: No vomiting, No abdominal pain, No shortness of breath, No chest pain, No syncope Allergies/Adverse Reactions: No Known Drug Allergies Allergy (Verified 03/12/19 22:07) Home Medications: Albuterol Sulfate [Proair Hfa] 2 puff IH UD 03/03/19 [History] Mometasone Furoate [Asmanex] 220 mcg IH HS 03/03/19 [History] Tiotropium Br/Olodaterol HCl [Stiolto Respimat Inhal [place]] 2 puff IH DAILY [History] Hx Tetanus, Diphtheria Vaccination/Date Given: Yes Hx Influenza Vaccination/Date Given: No Hx Pneumococcal Vaccination/Date Given: No - Review of Systems Constitutional: Fatigue Eyes: No Symptoms Ears, Nose, & Throat: No Symptoms Respiratory: No Symptoms Cardiac: No Symptoms Abdominal/Gastrointestinal: Hematochezia, Melena Genitourinary Symptoms: No Symptoms Musculoskeletal: No Symptoms Skin: No Symptoms Neurological: No Symptoms Psychological: No Symptoms Endocrine: No Symptoms Hematologic/Lymphatic: No Symptoms - Past Medical History Pertinent Past Medical History: Yes Neurological History: No Pertinent History ENT History: No Pertinent History Cardiac History: No Pertinent History Respiratory History: COPD, Other Endocrine Medical History: No Pertinent History Musculoskeletal History: Arthritis GI Medical History: No Pertinent History, GERD, GI Bleed, Ulcer, Other History: No Pertinent History Psycho-Social History: Other Male Reproductive Disorders: No Pertinent History Other Medical History: few fractures - Past Surgical History Past Surgical History: Yes Neuro Surgical History: No Pertinent History Cardiac: No Pertinent History Respiratory: No Pertinent History Gastrointestinal: No Pertinent History Genitourinary: No Pertinent History Musculoskeletal: No Pertinent History Male Surgical History: No Pertinent History Other Surgical History: bleeding ulcer - Social History Smoking Status: Current every day smoker How long have you smoked: 50 yrs Exposure to second hand smoke: Yes Alcohol Use: Chronic (daily throughout the day including work time) Drug Use: none Patient Lives Alone: No - Nursing Vital Signs Nursing Vital Signs: Initial Vital Signs Temperature 98 F 03/12/19 21:47 Pulse Rate 82 03/12/19 21:47 Blood Pressure 110/63 03/12/19 21:47 O2 Sat by Pulse Oximetry 98 03/12/19 21:47 Pain Scale Pain Intensity 0 - Physical Exam General Appearance: no apparent distress Eye Exam: eyes nml inspection, No scleral icterus Ears, Nose, Throat Exam: normal ENT inspection, pharynx normal Neck Exam: normal inspection, non-tender, supple, full range of motion Respiratory Exam: normal breath sounds, lungs clear Cardiovascular Exam: regular rate/rhythm, normal heart sounds Gastrointestinal/Abdomen Exam: soft, normal bowel sounds, No tenderness, No distention, No guarding Back Exam: normal inspection, normal range of motion, No CVA tenderness Extremity Exam: normal inspection, normal range of motion, pelvis stable Neurologic Exam: alert, 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, cooperative Skin Exam: normal color, rash, other (right forearm erythema and swelling with mild increased temp but no tenderness , from previous admission IV placements) SpO2: 92 Ordered Tests: Active Orders 24 hr Category Date Time Status CBC W DIFF Stat Lab 03/12/19 23:50 Completed CMP Stat Lab 03/12/19 23:50 Completed Manual Differential NC Stat Lab 03/12/19 23:50 Completed Occult Blood, Other Screening Stat Lab 03/12/19 23:14 Completed PROTIME WITH INR Stat Lab 03/12/19 23:50 Received PTT Stat Lab 03/12/19 23:50 Received UA W/RFX UR CULTURE Stat Lab 03/13/19 01:00 Ordered Medication Summary Generic Name Dose Route Start Last Admin Trade Name Erin TORON Reason Stop Dose Admin Pantoprazole Sodium 80 mg/ 500 mls @ 50 mls/hr 03/12/19 22:45 03/12/19 23:20 Sodium Chloride IV 04/11/19 22:44 50 mls/hr .Q10H ALYSSA 50 mls/hr Administration Discontinued Medications Generic Name Dose Route Start Last Admin Trade Name Erin PRN Reason Stop Dose Admin Sodium Chloride 1,000 mls @ 999 mls/hr 03/12/19 22:44 03/12/19 23:28 Sodium Chloride 0.9% 1000 Ml IV 03/12/19 23:44 999 mls/hr .Q1H1M STA Administration Sodium Chloride Confirm 03/12/19 23:18 Sodium Chloride 0.9% 1000 Ml Administered 03/12/19 23:19 Dose 1,000 mls @ ud .ROUTE .STK-MED ONE Sodium Chloride Confirm 03/12/19 23:18 Sodium Chloride 0.9% 500 Ml Administered 03/12/19 23:19 Dose 500 mls @ ud IV .STK-MED ONE Pantoprazole Sodium 80 mg 03/12/19 22:46 03/12/19 23:21 Protonix 40 Mg Iv IV 03/12/19 22:47 80 mg STAT ONE Administration Pantoprazole Sodium Confirm 03/12/19 23:18 Protonix 40 Mg Iv Administered 03/12/19 23:19 Dose 80 mg IV .STK-MED ONE Pantoprazole Sodium Confirm 03/12/19 23:32 Protonix 40 Mg Iv Administered 03/12/19 23:33 Dose 80 mg IV .STK-MED ONE Lab/Rad Data: Laboratory Result Diagrams 03/12/19 23:50 03/12/19 23:50 Laboratory Results 03/13/19 03/12/19 03/12/19 Range/Units 01:00 23:50 23:50 WBC (4.0-10.5) K/mm3 RBC (4.1-5.6) M/mm3 Hgb (12.5-18.0) gm/dl Hct (42-50) % MCV (78-100) fl MCH (26-32) pg MCHC (32-36) g/dl RDW (11.5-14.0) % Plt Count (150-450) K/mm3 MPV (6-9.5) fl Sodium 139 (137-145) mmol/L Potassium 4.2 (3.5-5.1) mmol/L Chloride 105 (98-107) mmol/L Carbon Dioxide 28 (22-30) mmol/L Anion Gap 10.8 (5-15) MEQ/L BUN 14 (9-20) mg/dL Creatinine 0.82 (0.66-1.25) mg/dL Estimated GFR > 60.0 ML/MIN Glucose 111 H (74-106) mg/dL Calcium 8.3 L (8.4-10.2) mg/dL Total Bilirubin 0.30 (0.2-1.3) mg/dL AST 19 (17-59) U/L ALT 13 (0-50) U/L Alkaline Phosphatase 48 (38-126) U/L Serum Total Protein 5.3 L (6.3-8.2) g/dL Albumin 2.7 L (3.5-5.0) g/dL Urine Color YELLOW (YELLOW) Urine Appearance CLEAR (CLEAR) Urine pH 7.0 (5-6) Ur Specific [place] 1.013 (1.005-1.025) Urine Protein NEGATIVE (Negative) Urine Ketones NEGATIVE (NEGATIVE) Urine Blood NEGATIVE (0-5) Luther/ul Urine Nitrite NEGATIVE (NEGATIVE) Urine Bilirubin NEGATIVE (NEGATIVE) Urine Urobilinogen NEGATIVE (0-1) mg/dL Ur Leukocyte Esterase NEGATIVE (NEGATIVE) Urine WBC (Auto) NONE (0-5) /HPF Urine RBC (Auto) NONE (0-2) /HPF U Epithel Cells (Auto) NONE (FEW) /HPF Urine Bacteria (Auto) NONE (NEGATIVE) /HPF Urine Culture Reflexed NO (NO) Urine Glucose NEGATIVE (NEGATIVE) mg/dL Stool Occult Blood (Negative) ABO Group B Rh Factor POSITIVE Antibody Screen NEGATIVE (NEGATIVE) 03/12/19 03/12/19 Range/Units 23:50 23:14 WBC 9.6 (4.0-10.5) K/mm3 RBC 2.55 L (4.1-5.6) M/mm3 Hgb 7.8 L (12.5-18.0) gm/dl Hct 24.4 L (42-50) % MCV 95.7 (78-100) fl MCH 30.5 (26-32) pg MCHC 32.0 (32-36) g/dl RDW 15.0 H (11.5-14.0) % Plt Count 272 (150-450) K/mm3 MPV 8.9 (6-9.5) fl Sodium (137-145) mmol/L Potassium (3.5-5.1) mmol/L Chloride (98-107) mmol/L Carbon Dioxide (22-30) mmol/L Anion Gap (5-15) MEQ/L BUN (9-20) mg/dL Creatinine (0.66-1.25) mg/dL Estimated GFR ML/MIN Glucose (74-106) mg/dL Calcium (8.4-10.2) mg/dL Total Bilirubin (0.2-1.3) mg/dL AST (17-59) U/L ALT (0-50) U/L Alkaline Phosphatase (38-126) U/L Serum Total Protein (6.3-8.2) g/dL Albumin (3.5-5.0) g/dL Urine Color (YELLOW) Urine Appearance (CLEAR) Urine pH (5-6) Ur Specific [place] (1.005-1.025) Urine Protein (Negative) Urine Ketones (NEGATIVE) Urine Blood (0-5) Luther/ul Urine Nitrite (NEGATIVE) Urine Bilirubin (NEGATIVE) Urine Urobilinogen (0-1) mg/dL Ur Leukocyte Esterase (NEGATIVE) Urine WBC (Auto) (0-5) /HPF Urine RBC (Auto) (0-2) /HPF U Epithel Cells (Auto) (FEW) /HPF Urine Bacteria (Auto) (NEGATIVE) /HPF Urine Culture Reflexed (NO) Urine Glucose (NEGATIVE) mg/dL Stool Occult Blood POSITIVE A (Negative) ABO Group Rh Factor Antibody Screen (NEGATIVE) - Progress Progress: improved, re-examined Progress Note: 63 years old with history of GI bleed he suddenly is evaluated again for dark stool with some maroonish blood. He has a positive stool occult or if his hemoglobin is 7.8. He is given IV fluid bolus and her chronic bolus, started on Protonix drip. Patient has history of massive GI bleed recently. He has embolization done at [facility] [place]. I have discussed with Dr. Moscoso at the [facility] hospital and patient is accepted for admission at ICU there. Plan discussed with patient who understands and agrees with transfer. 03/13/19 01:12 - Departure Departure Disposition: Transfer Clinical Impression: Gastrointestinal hemorrhage with melena Condition: Stable Critical Care Time: No Referrals: DOCTOR,NO FAMILY [Primary Care Provider] -
[2019-03-12] MEDS ORDERED: Sodium Chloride 0.9% 500 ML 500 ML IV ONE (23:18)
[2019-03-12] MEDS ORDERED: Sodium Chloride 0.9% 1000 ML 1,000 ML ONE (23:18)
[2019-03-12 23:53] LABS: Hematocrit 24.4 % (42-50); Hemoglobin 7.8 gm/dl (12.5-18.0); Mean Cell Volume 95.7 fl (78-100); Mean Platelet Volume 8.9 fl (6-9.5); Platelet Count 272 K/mm3 (150-450); Red Blood Count 2.55 M/mm3 (4.1-5.6); White Blood Count 9.6 K/mm3 (4.0-10.5)
[2019-03-12 23:55] LABS: Mean Corpuscular Hemoglobin 30.5 pg (26-32)
[2019-03-13 00:02] LABS: PTT 27.3 SECONDS (24.1-36.1)
[2019-03-13 00:04] LABS: PROTIME 11.3 SECONDS (8.83-12.87)
[2019-03-13 00:06] LABS: ALBUMIN 2.7 g/dL (3.5-5.0); ALKALINE PHOSPHATASE 48 U/L (38-126); ANION GAP 10.8 MEQ/L (5-15); BLOOD UREA NITROGEN 14 mg/dL (9-20); CHLORIDE 105 mmol/L (98-107); Calcium 8.3 mg/dL (8.4-10.2); Carbon Dioxide 28 mmol/L (22-30); Creatinine 1 0.82 mg/dL (0.66-1.25); Glucose 111 mg/dL (74-106); Potassium 4.2 mmol/L (3.5-5.1); SGOT/AST 19 U/L (17-59); SGPT/ALT 13 U/L (0-50); SODIUM 139 mmol/L (137-145); Total Protein 5.3 g/dL (6.3-8.2)
[2019-03-13 01:01] LABS: ABO TYPING B; Antibody Screen NEGATIVE (NEGATIVE); RH TYPING POSITIVE
[2019-03-13 01:10] LABS: Appearance CLEAR (CLEAR); Bilirubin NEGATIVE (NEGATIVE); Blood NEGATIVE Ery/ul (0-5); Glucose NEGATIVE (NEGATIVE); Ketones NEGATIVE (NEGATIVE); Leukocyte Esterase NEGATIVE (NEGATIVE); Nitrite NEGATIVE (NEGATIVE); Protein,Urine Dip NEGATIVE (Negative); Specific Gravity 1.013 (1.005-1.025); Urobilinogen NEGATIVE mg/dL (0-1)
[2019-03-13 02:51] VITALS: BP 141/78; PULSE 81; O2SAT 98
[2019-03-13 04:51] LABS: Eosinophil 2 % (0.00-3.0); Lymphocytes 22 % (24-44); Monocyte 3 % (0.0-12.0); Neutrophils 73 % (36.-66.); Platelet Estimate NORMAL (NORMAL); Total Cells Counted 100; Toxic Granulation RARE
== END 2019-03-13 03:03 | disposition short-term general hospital (02) ==
LOC: ED 21:43
DX: K92.1 Melena (principal)
CPT/HCPCS: 36000; 36415; 80053; 81001; 82272; 85025; 85610; 85730; 86850; 86900; 86901; 96374; 96375; 99285

== ENCOUNTER 2019-04-27 12:42 | Emergency (ER) | payer OTHER, MEDICARE ==
[2019-04-27] MEDS ORDERED: solu-MEDROL 125 MG IV ONE (12:45)
[2019-04-27] MEDS ORDERED: DUONEB 0.5-3 MG/3 ml Neb IH ONE ×2 (12:45→12:54)
[2019-04-27] MEDS ORDERED: Sodium Chloride 0.9% 1000 ML 1,000 ML IV SCH (12:45)
[2019-04-27] MEDS ORDERED: Sodium Chloride 0.9% 1000 ML 1,000 ML ONE (12:50)
[2019-04-27] MEDS ORDERED: solu-MEDROL 125 MG ONE (12:50)
[2019-04-27 13:02] LABS: Absolute Neutrophil Ct (ANC) 4.33 (1.4-6.9); BASOPHIL % 0.8 % (0.0-0.4); Basophil (Absolute #) 0.06 (0-0.4); Eosinophil % 2.6 % (0.00-5.0); Hematocrit 40.8 % (42-50); Hemoglobin 12.7 gm/dl (12.5-18.0); Lymphocyte (Absolute #) 2.37 (1.0-4.6); Lymphocytes % 30.7 % (24.0-44.0); Mean Cell Volume 92.5 fl (78-100); Mean Corpuscular Hemoglobin 28.8 pg (26-32); Mean Corpuscular Hgb Concent. 31.1 g/dl (32-36); Mean Platelet Volume 9.2 fl (6-9.5); Monocyte (Absolute #) 0.77 (0.0-1.3); Neutrophil % 55.9 % (36.0-66.0); Platelet Count 246 K/mm3 (150-450); Red Blood Count 4.41 M/mm3 (4.1-5.6); Red Cell Distribution Width 15.4 % (11.5-14.0); White Blood Count 7.7 K/mm3 (4.0-10.5)
--- NOTE | 2019-04-27 13:02 | ERPHSYRPT ---
- History of Present Illness Time Seen by Provider: 04/27/19 13:01 Source: patient Exam Limitations: no limitations Patient Subjective Stated Complaint: Pt states has been short of breath for the last couple weeks. Thought it would go away but has not so decided to be seen today. States symtoms have been this bad the whole time. Reports productive cough. Triage Nursing Assessment: Pt tachypneic rate in the 40's. Lung sounds coarse. Using accessory musles to breathe. Skin valle. Physician History: Pt states has been short of breath for the last couple weeks. Thought it would go away but has not so decided to be seen today. States symtoms have been this bad the whole time. Reports productive cough. Timing/Duration: week(s) Activities at Onset: none Severity of Dyspnea-Max: moderate Severity of Dyspnea-Current: severe Possible Cause: frequent episodes Associated Symptoms: cough International travel in last 2 weeks: No Allergies/Adverse Reactions: No Known Drug Allergies Allergy (Verified 04/27/19 12:56) Home Medications: Albuterol Sulfate [Proair Hfa] 2 puff IH UD 03/03/19 [History] Mometasone Furoate [Asmanex] 220 mcg IH HS 03/03/19 [History] Tiotropium Br/Olodaterol HCl [Stiolto Respimat Inhal [place]] 2 puff IH DAILY [History] Hx Tetanus, Diphtheria Vaccination/Date Given: Yes Hx Influenza Vaccination/Date Given: Yes Hx Pneumococcal Vaccination/Date Given: No - Review of Systems Constitutional: No Fever, No Chills Eyes: No Symptoms Ears, Nose, & Throat: No Symptoms Respiratory: Cough, Dyspnea, Dyspnea on Exertion (ROMERO), Wheezing Cardiac: No Chest Pain, No Edema, No Syncope Abdominal/Gastrointestinal: No Abdominal Pain, No Nausea, No Vomiting, No Diarrhea Genitourinary Symptoms: No Dysuria Musculoskeletal: No Back Pain, No Neck Pain Skin: No Rash Neurological: No Dizziness, No Focal Weakness, No Sensory Changes Psychological: No Symptoms Endocrine: No Symptoms All Other Systems: Reviewed and Negative - Past Medical History Pertinent Past Medical History: Yes Neurological History: No Pertinent History ENT History: No Pertinent History Cardiac History: No Pertinent History Respiratory History: COPD, Other Endocrine Medical History: No Pertinent History Musculoskeletal History: Arthritis GI Medical History: No Pertinent History, GERD, GI Bleed, Ulcer, Other History: No Pertinent History Psycho-Social History: Other Male Reproductive Disorders: No Pertinent History Other Medical History: few fractures - Past Surgical History Past Surgical History: Yes Neuro Surgical History: No Pertinent History Cardiac: No Pertinent History Respiratory: No Pertinent History Gastrointestinal: No Pertinent History Genitourinary: No Pertinent History Musculoskeletal: No Pertinent History Male Surgical History: No Pertinent History Other Surgical History: bleeding ulcer - Social History Smoking Status: Current every day smoker How long have you smoked: 50 yrs Exposure to second hand smoke: Yes Alcohol Use: Chronic (daily throughout the day including work time) Drug Use: none Patient Lives Alone: No - Nursing Vital Signs Nursing Vital Signs: Initial Vital Signs Temperature 96.6 F 04/27/19 12:44 Pulse Rate 83 04/27/19 12:44 Respiratory Rate 48 H 04/27/19 12:44 Blood Pressure 128/81 04/27/19 12:44 O2 Sat by Pulse Oximetry 95 04/27/19 12:44 Pain Scale Pain Intensity 0 - Physical Exam General Appearance: no apparent distress, alert Eye Exam: PERRL/EOMI Neck Exam: normal inspection, supple Respiratory Exam: respiratory distress, diminished breath sounds, accessory muscle use, wheezing Cardiovascular/Chest Exam: normal heart sounds, regular rate/rhythm Abdominal/Gastrointestinal Exam: soft, No tenderness, No distention, No mass Extremity Exam: non-tender, normal range of motion, normal inspection, no calf tenderness, no pedal edema Neurologic Exam: alert, 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, cooperative, dialysis registered nurse II-XII nml as tested, sensation nml, No motor deficits Skin Exam: normal color, warm, No dry SpO2 Interpretation: normal SpO2: 95 O2 Delivery: Room Air - Course Nursing assessment & vital signs reviewed: Yes - Radiology Exams Chest X-ray Interpretation: Reviewed by me (no acute infiltrate, COPD changes) Ordered Tests: Active Orders 24 hr Category Date Time Status Oxygen-ED Only Nasal Cannula 3 lpm Care 04/27/19 12:45 Active CHEST 2 VIEWS (PA AND LAT) Stat Exams 04/27/19 12:46 Taken CBC W DIFF Stat Lab 04/27/19 12:45 Completed CMP Stat Lab 04/27/19 12:45 Completed NT PRO BNP Stat Lab 04/27/19 12:45 Completed TROPONIN Q3H Lab 04/27/19 12:45 Completed TROPONIN Q3H Lab 04/27/19 15:45 Ordered TROPONIN Q3H Lab 04/27/19 18:45 Ordered TROPONIN Q3H Lab 04/27/19 21:45 Ordered TROPONIN Q3H Lab 04/28/19 00:45 Ordered Peak Expiratory Flow Rate ONCE RT 04/27/19 12:45 Active Respiratory Therapy Assessment DAILY RT 04/27/19 13:11 Active Medication Summary Generic Name Dose Route Start Last Admin Trade Name Freq PRN Reason Stop Dose Admin Sodium Chloride 1,000 mls @ 100 mls/hr 04/27/19 12:45 04/27/19 12:51 Sodium Chloride 0.9% 1000 Ml IV 05/27/19 12:44 100 mls/hr .Q10H ALYSSA Administration Discontinued Medications Generic Name Dose Route Start Last Admin Trade Name Freq PRN Reason Stop Dose Admin Albuterol/Ipratropium 3 ml 04/27/19 12:45 04/27/19 12:55 Duoneb 0.5-3 Mg/3 Ml Neb IH 04/27/19 12:46 3 ml STAT ONE Administration Albuterol/Ipratropium Confirm 04/27/19 12:54 Duoneb 0.5-3 Mg/3 Ml Neb Administered 04/27/19 12:55 Dose 3 ml IH .STK-MED ONE Methylprednisolone Sodium Succinate 125 mg 04/27/19 12:45 04/27/19 12:51 Solu-Medrol 125 Mg IV 04/27/19 12:46 125 mg STAT ONE Administration Methylprednisolone Sodium Succinate Confirm 04/27/19 12:50 Solu-Medrol 125 Mg Administered 04/27/19 12:51 Dose 125 mg .ROUTE .STK-MED ONE Lab/Rad Data: Laboratory Result Diagrams 04/27/19 12:45 04/27/19 12:45 Laboratory Results 04/27/19 04/27/19 04/27/19 Range/Units 12:45 12:45 12:45 WBC 7.7 (4.0-10.5) K/mm3 RBC 4.41 (4.1-5.6) M/mm3 Hgb 12.7 (12.5-18.0) gm/dl Hct 40.8 L (42-50) % MCV 92.5 (78-100) fl MCH 28.8 (26-32) pg MCHC 31.1 L (32-36) g/dl RDW 15.4 H (11.5-14.0) % Plt Count 246 (150-450) K/mm3 MPV 9.2 (6-9.5) fl Gran % 55.9 (36.0-66.0) % Eos # (Auto) 0.20 (0-0.5) Absolute Lymphs (auto) 2.37 (1.0-4.6) Absolute Monos (auto) 0.77 (0.0-1.3) Lymphocytes % 30.7 (24.0-44.0) % Monocytes % 10.0 (0.0-12.0) % Eosinophils % 2.6 (0.00-5.0) % Basophils % 0.8 (0.0-0.4) % Absolute Granulocytes 4.33 (1.4-6.9) Basophils # 0.06 (0-0.4) Sodium 142 (137-145) mmol/L Potassium 4.1 (3.5-5.1) mmol/L Chloride 105 (98-107) mmol/L Carbon Dioxide 24 (22-30) mmol/L Anion Gap 17.9 H (5-15) MEQ/L BUN 15 (9-20) mg/dL Creatinine 0.72 (0.66-1.25) mg/dL Estimated GFR > 60.0 ML/MIN Glucose 103 (74-106) mg/dL Calcium 9.6 (8.4-10.2) mg/dL Total Bilirubin 0.30 (0.2-1.3) mg/dL AST 29 (17-59) U/L ALT 15 (0-50) U/L Alkaline Phosphatase 54 (38-126) U/L Troponin I < 0.012 (0.000-0.034) ng/mL NT-Pro-B Natriuret Pep 73.6 (0-900) pg/mL Serum Total Protein 8.1 (6.3-8.2) g/dL Albumin 4.6 (3.5-5.0) g/dL - Progress Progress: improved Air Movement: fair Blood Culture(s) Obtained: No Antibiotics given: No Counseled pt/family regarding: lab results, diagnosis, need for follow-up, rad results, smoking cessation - Departure Departure Disposition: Home Clinical Impression: COPD exacerbation Condition: Stable Critical Care Time: No Referrals: DOCTOR,NO FAMILY [Primary Care Provider] - Instructions: Chronic Obstructive Pulmonary Disease, Shortness of Breath ( Dyspnea) (DC), Exacerbation of COPD (DC) Additional Instructions: use your nebulizer every 4 hours for next 2 days. Continue using your inhalers. Follow-up with your primary care doctor in 2 days. Please follow the instructions given to you. Please take your medication as prescribed if given. If symptoms recur or get worse, come back to the emergency room if you cannot reach your primary care physician, or call your primary care physician for an appointment. Again if your symptoms get worse, come back to the emergency room. Thanks for visiting emergency room, and let us take care of you. Discharge/Care Plan RAQUEL GREGORIODERIC KELLER was seen on 04/27/19 in the Emergency Room. The patient was counseled regarding Diagnosis,Lab results, Imaging studies, need for follow up and when to return to the Emergency Room. Prescriptions given: Discharge Note I have spoken with the patient and/or caregivers. I have explained the patient' s condition, diagnosis and treatment plan based on the information available to me at this time. I have answered the patient's and/or caregiver's questions and addressed any concerns. The patient and/or caregivers have as good understanding of the patient's diagnosis, condition and treatment plan as can be expected at this point. The vital signs have been stable. The patient's condition is stable and appropriate for discharge from the emergency department. The patient will pursue further outpatient evaluation with the primary care physician or other designated or consulting physician as outlined in the discharge instructions. The patient and/or caregivers are agreeable to this plan of care and follow-up instructions have been explained in detail. The patient and/or caregivers have received these instruction. The patient/and or caregivers are aware that any significant change in condition or worsening of symptoms should prompt an immediate return to this or the closest emergency department or call 911. Prescriptions: Methylprednisolone Packet [Medrol Dosepack] 4 mg PO UD #30 packet Azithromycin [Zithromax] 250 mg PO UD 5 Days #6 tablet
[2019-04-27 13:21] LABS: ALBUMIN 4.6 g/dL (3.5-5.0); ALKALINE PHOSPHATASE 54 U/L (38-126); ANION GAP 17.9 MEQ/L (5-15); BLOOD UREA NITROGEN 15 mg/dL (9-20); CHLORIDE 105 mmol/L (98-107); Calcium 9.6 mg/dL (8.4-10.2); Carbon Dioxide 24 mmol/L (22-30); Creatinine 1 0.72 mg/dL (0.66-1.25); Glucose 103 mg/dL (74-106); NT PRO BNP 73.6 pg/mL (0-900); Potassium 4.1 mmol/L (3.5-5.1); SGOT/AST 29 U/L (17-59); SGPT/ALT 15 U/L (0-50); SODIUM 142 mmol/L (137-145); Total Protein 8.1 g/dL (6.3-8.2)
[2019-04-27 14:17] VITALS: BP 139/80; PULSE 78; O2SAT 99
--- NOTE | 2019-04-27 20:35 | XRAY ---
Indication: Cough and short of breath 2 weeks. Comparison: March 03, 2019. PA/lateral chest again hyperinflated and clear with incidental calcified granulomas. Heart is not enlarged. No new/acute findings.
== END 2019-04-27 14:32 | disposition home or self-care (01) ==
LOC: ED 12:42
DX: J44.1 Chronic obstructive pulmonary disease with (acute) exacerbation (principal); R06.02 Shortness of breath; R05 Cough
CPT/HCPCS: 36415; 71046; 80053; 83880; 84484; 85025; 94150; 94640; 96374; 99284; J2930; A9270-GY

== ENCOUNTER 2020-01-07 00:02 | Emergency (ER) | payer MEDICARE, OTHER ==
[2020-01-07 00:50] LABS: Absolute Neutrophil Ct (ANC) 6.26 (1.4-6.9); BASOPHIL % 0.6 % (0.0-0.4); Basophil (Absolute #) 0.06 (0-0.4); Eosinophil % 1.4 % (0.00-5.0); Eosinophil (Absolute #) 0.13 (0-0.5); Hemoglobin 13.8 gm/dl (12.5-18.0); Lymphocyte (Absolute #) 2.17 (1.0-4.6); Lymphocytes % 23.3 % (24.0-44.0); Mean Cell Volume 91.9 fl (78-100); Mean Corpuscular Hemoglobin 29.5 pg (26-32); Mean Corpuscular Hgb Concent. 32.1 g/dl (32-36); Mean Platelet Volume 9.6 fl (7.5-11.0); Monocyte (Absolute #) 0.71 (0.0-1.3); Monocytes % 7.6 % (0.0-12.0); Neutrophil % 67.1 % (36.0-66.0); Platelet Count 208 K/mm3 (150-450); Red Blood Count 4.68 M/mm3 (4.1-5.6); Red Cell Distribution Width 16.9 % (11.5-14.0); White Blood Count 9.3 K/mm3 (4.0-10.5)
--- NOTE | 2020-01-07 01:11 | ERPHSYRPT ---
- History of Present Illness Time Seen by Provider: 01/07/20 01:11 Source: patient Exam Limitations: no limitations Patient Subjective Stated Complaint: pt c/o sob Triage Nursing Assessment: pt c/o sob. 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 Lungs clear ant upper, diminished to lower lobes, with exp wheeze noted to LLL. Pt arrived on 4L n/c, O2 sats 97%. Turned pt down to 2L n/c, O2 sats 94%. Pt does not wear O2 at home. Physician History: Patient is a 64-year-old male presents to our ED with complaints of shortness of breath. Patient advises staff that he is a smoker of 5 packs/day. 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 Shortly thereafter he went home drank beer and later became short of breath. No chest pain. Symptoms progressively worsening. Patient son called 911. Upon arrival patient's O2 sat was 88%. Patient was placed on 4 L nasal cannula. Oxygen normalized. Patient does not require oxygen normally. No associated fevers. No nausea or vomiting. No diarrhea. No rash. Patient voices no other complaints or concerns at this time. Timing/Duration: today Activities at Onset: none Severity of Dyspnea-Max: moderate Severity of Dyspnea-Current: mild Possible Cause: occasional episodes (Prior episodes were due to COPD exacerbation.) Modifying Factors: Improves With: activity Associated Symptoms: cough, No chest pain/discomfort, No fever, No insomnia, No loss of appetite, No wheezing, No weakness, No ankle swelling, No hemoptysis, No calf pain, No dizziness, No heaviness Allergies/Adverse Reactions: No Known Drug Allergies Allergy (Verified 01/07/20 00:16) Home Medications: Albuterol Sulfate [Proair Hfa] 2 puff IH UD 03/03/19 [History] Mometasone Furoate [Asmanex] 220 mcg IH HS 03/03/19 [History] Tiotropium Br/Olodaterol HCl [Stiolto Respimat Inhal [place]] 2 puff IH DAILY 03/03/19 [History] Hx Tetanus, Diphtheria Vaccination/Date Given: Yes Hx Influenza Vaccination/Date Given: Yes Hx Pneumococcal Vaccination/Date Given: Yes Immunizations Up to Date: Yes Travel Risk - International Travel Have you traveled outside of the country in past 3 weeks: No - Coronavirus Screening Are you exhibiting any of the following symptoms?: Yes - Review of Systems Constitutional: No Symptoms, No Fever, No Chills Eyes: No Symptoms Ears, Nose, & Throat: No Symptoms Respiratory: No Symptoms, No Cough, No Dyspnea Cardiac: No Symptoms, No Chest Pain, No Edema, No Syncope Abdominal/Gastrointestinal: No Symptoms, No Abdominal Pain, No Nausea, No Vomiting, No Diarrhea Genitourinary Symptoms: No Symptoms, No Dysuria Musculoskeletal: No Symptoms, No Back Pain, No Neck Pain Skin: No Symptoms, No Rash Neurological: No Symptoms, No Dizziness, No Focal Weakness, No Sensory Changes Psychological: No Symptoms Endocrine: No Symptoms Hematologic/Lymphatic: No Symptoms Immunological/Allergic: No Symptoms All Other Systems: Reviewed and Negative - Past Medical History Pertinent Past Medical History: Yes Neurological History: No Pertinent History ENT History: No Pertinent History Cardiac History: No Pertinent History Respiratory History: Bronchitis, COPD, Pneumonia, Other Endocrine Medical History: No Pertinent History Musculoskeletal History: Arthritis GI Medical History: GERD, GI Bleed, Ulcer, Other History: No Pertinent History Psycho-Social History: Other Male Reproductive Disorders: No Pertinent History Other Medical History: few fractures - Past Surgical History Past Surgical History: Yes Neuro Surgical History: No Pertinent History Cardiac: No Pertinent History Respiratory: No Pertinent History Gastrointestinal: No Pertinent History Genitourinary: No Pertinent History Musculoskeletal: No Pertinent History Male Surgical History: No Pertinent History Other Surgical History: bleeding ulcer - Social History Smoking Status: Current every day smoker How long have you smoked: 54 years Exposure to second hand smoke: Yes Alcohol Use: Chronic (daily throughout the day including work time) Drug Use: none Patient Lives Alone: No - Nursing Vital Signs Nursing Vital Signs: Initial Vital Signs Temperature 97.6 F 01/07/20 00:04 Pulse Rate 82 01/07/20 00:04 Respiratory Rate 24 01/07/20 00:04 Blood Pressure 131/74 01/07/20 00:04 O2 Sat by Pulse Oximetry 97 01/07/20 00:04 Pain Scale Pain Intensity 5 - Physical Exam General Appearance: no apparent distress, alert Eye Exam: PERRL/EOMI Neck Exam: normal inspection, supple Respiratory Exam: normal breath sounds Cardiovascular/Chest Exam: normal heart sounds, regular rate/rhythm Abdominal/Gastrointestinal Exam: soft, No tenderness, No distention, No mass Extremity Exam: non-tender, normal range of motion, normal inspection, no calf tenderness, no pedal edema Peripheral Pulses Exam: dorsalis-pedis (R): 2+, dorsalis-pedis (L): 2+ Neurologic Exam: alert, 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, 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 No infiltrate or consolidation. Normal bony thorax. Normal cardiac silhouette. No acute findings.) - CT Exams Chest CT Interpretation: Tele-radiologist Report (Negative for pulmonary embolism. Emphysematous changes. Right middle and lingular lobe atelectasis versus minimal infiltrate.) Ordered Tests: Medication Summary Discontinued Medications Generic Name Dose Route Start Last Admin Trade Name Freq PRN Reason Stop Dose Admin Ceftriaxone Sodium/Dextrose 1 g in 50 mls @ 100 mls/hr 01/07/20 02:11 01/07/20 02:48 Rocephin 1 Gm-D5w 50 Ml Bag IV 01/07/20 02:40 Infused STAT STA Infusion Azithromycin / Sodium Chloride 250 mls @ 125 mls/hr 01/07/20 02:12 IV 01/07/20 04:11 STAT ONE Ceftriaxone Sodium/Dextrose Confirm 01/07/20 02:21 Rocephin 1 Gm-D5w 50 Ml Bag Administered 01/07/20 02:22 Dose 1 g in 50 mls @ ud IV .STK-MED ONE Azithromycin Confirm 01/07/20 02:56 Zithromax 500 Mg/ 250 Ml Nacl Premix Administered 01/07/20 02:57 Dose 500 mg in 250 mls @ ud IV .STK-MED ONE Azithromycin 500 mg/ Sodium 250 mls @ 125 mls/hr 01/07/20 02:59 01/07/20 03:00 Chloride IV 01/07/20 04:58 125 mls/hr STAT ONE Administration Methylprednisolone Sodium Succinate 125 mg 01/07/20 02:11 01/07/20 02:22 Solu-Medrol 125 Mg IV 01/07/20 02:12 125 mg STAT ONE Administration Methylprednisolone Sodium Succinate Confirm 01/07/20 02:21 Solu-Medrol 125 Mg Administered 01/07/20 02:22 Dose 125 mg .ROUTE .STK-MED ONE Lab/Rad Data: Laboratory Result Diagrams 01/07/20 00:45 01/07/20 00:45 Laboratory Results 01/07/20 01/07/20 01/07/20 Range/Units 06:32 03:17 03:17 WBC (4.0-10.5) K/mm3 RBC (4.1-5.6) M/mm3 Hgb (12.5-18.0) gm/dl Hct (42-50) % MCV (78-100) fl MCH (26-32) pg MCHC (32-36) g/dl RDW (11.5-14.0) % Plt Count (150-450) K/mm3 MPV (7.5-11.0) fl Gran % (36.0-66.0) % Eos # (Auto) (0-0.5) Absolute Lymphs (auto) (1.0-4.6) Absolute Monos (auto) (0.0-1.3) Lymphocytes % (24.0-44.0) % Monocytes % (0.0-12.0) % Eosinophils % (0.00-5.0) % Basophils % (0.0-0.4) % Absolute Granulocytes (1.4-6.9) Basophils # (0-0.4) D-Dimer (215-500) ng/mL Sodium (137-145) mmol/L Potassium (3.5-5.1) mmol/L Chloride (98-107) mmol/L Carbon Dioxide (22-30) mmol/L Anion Gap (5-15) MEQ/L BUN (9-20) mg/dL Creatinine (0.66-1.25) mg/dL Estimated GFR ML/MIN Glucose (74-106) mg/dL Calcium (8.4-10.2) mg/dL Magnesium (1.6-2.3) mg/dL Total Bilirubin (0.2-1.3) mg/dL AST (17-59) U/L ALT (0-50) U/L Alkaline Phosphatase (38-126) U/L Troponin I < 0.012 < 0.012 (0.000-0.034) ng/mL NT-Pro-B Natriuret Pep (0-900) pg/mL Serum Total Protein (6.3-8.2) g/dL Albumin (3.5-5.0) g/dL Urine Color (YELLOW) Urine Appearance (CLEAR) Urine pH (5-6) Ur Specific Griffin (1.005-1.025) Urine Protein (Negative) Urine Ketones (NEGATIVE) Urine Blood (0-5) Luther/ul Urine Nitrite (NEGATIVE) Urine Bilirubin (NEGATIVE) Urine Urobilinogen (0-1) mg/dL Ur Leukocyte Esterase (NEGATIVE) Urine WBC (Auto) (0-5) /HPF Urine RBC (Auto) (0-2) /HPF U Epithel Cells (Auto) (FEW) /HPF Urine Bacteria (Auto) (NEGATIVE) /HPF Urine Culture Reflexed (NO) Urine Glucose (NEGATIVE) mg/dL SARS-CoV-2 (PCR) NEGATIVE (NEGATIVE) 01/07/20 01/07/20 01/07/20 Range/Units 01:21 00:45 00:45 WBC (4.0-10.5) K/mm3 RBC (4.1-5.6) M/mm3 Hgb (12.5-18.0) gm/dl Hct (42-50) % MCV (78-100) fl MCH (26-32) pg MCHC (32-36) g/dl RDW (11.5-14.0) % Plt Count (150-450) K/mm3 MPV (7.5-11.0) fl Gran % (36.0-66.0) % Eos # (Auto) (0-0.5) Absolute Lymphs (auto) (1.0-4.6) Absolute Monos (auto) (0.0-1.3) Lymphocytes % (24.0-44.0) % Monocytes % (0.0-12.0) % Eosinophils % (0.00-5.0) % Basophils % (0.0-0.4) % Absolute Granulocytes (1.4-6.9) Basophils # (0-0.4) D-Dimer 636 H* (215-500) ng/mL Sodium (137-145) mmol/L Potassium (3.5-5.1) mmol/L Chloride (98-107) mmol/L Carbon Dioxide (22-30) mmol/L Anion Gap (5-15) MEQ/L BUN (9-20) mg/dL Creatinine (0.66-1.25) mg/dL Estimated GFR ML/MIN Glucose (74-106) mg/dL Calcium (8.4-10.2) mg/dL Magnesium (1.6-2.3) mg/dL Total Bilirubin (0.2-1.3) mg/dL AST (17-59) U/L ALT (0-50) U/L Alkaline Phosphatase (38-126) U/L Troponin I < 0.012 (0.000-0.034) ng/mL NT-Pro-B Natriuret Pep (0-900) pg/mL Serum Total Protein (6.3-8.2) g/dL Albumin (3.5-5.0) g/dL Urine Color STRAW (YELLOW) Urine Appearance CLEAR (CLEAR) Urine pH 6.0 (5-6) Ur Specific Griffin 1.003 (1.005-1.025) Urine Protein NEGATIVE (Negative) Urine Ketones NEGATIVE (NEGATIVE) Urine Blood NEGATIVE (0-5) Luther/ul Urine Nitrite NEGATIVE (NEGATIVE) Urine Bilirubin NEGATIVE (NEGATIVE) Urine Urobilinogen NEGATIVE (0-1) mg/dL Ur Leukocyte Esterase NEGATIVE (NEGATIVE) Urine WBC (Auto) NONE SEEN (0-5) /HPF Urine RBC (Auto) NONE (0-2) /HPF U Epithel Cells (Auto) NONE (FEW) /HPF Urine Bacteria (Auto) NONE SEEN (NEGATIVE) /HPF Urine Culture Reflexed NO (NO) Urine Glucose NEGATIVE (NEGATIVE) mg/dL SARS-CoV-2 (PCR) (NEGATIVE) 01/07/20 01/07/20 Range/Units 00:45 00:45 WBC 9.3 (4.0-10.5) K/mm3 RBC 4.68 (4.1-5.6) M/mm3 Hgb 13.8 (12.5-18.0) gm/dl Hct 43.0 (42-50) % MCV 91.9 (78-100) fl MCH 29.5 (26-32) pg MCHC 32.1 (32-36) g/dl RDW 16.9 H (11.5-14.0) % Plt Count 208 (150-450) K/mm3 MPV 9.6 (7.5-11.0) fl Gran % 67.1 H (36.0-66.0) % Eos # (Auto) 0.13 (0-0.5) Absolute Lymphs (auto) 2.17 (1.0-4.6) Absolute Monos (auto) 0.71 (0.0-1.3) Lymphocytes % 23.3 L (24.0-44.0) % Monocytes % 7.6 (0.0-12.0) % Eosinophils % 1.4 (0.00-5.0) % Basophils % 0.6 (0.0-0.4) % Absolute Granulocytes 6.26 (1.4-6.9) Basophils # 0.06 (0-0.4) D-Dimer (215-500) ng/mL Sodium 139 (137-145) mmol/L Potassium 3.4 L (3.5-5.1) mmol/L Chloride 107 (98-107) mmol/L Carbon Dioxide 21 L (22-30) mmol/L Anion Gap 13.4 (5-15) MEQ/L BUN 13 (9-20) mg/dL Creatinine 0.95 (0.66-1.25) mg/dL Estimated GFR > 60.0 ML/MIN Glucose 88 (74-106) mg/dL Calcium 9.4 (8.4-10.2) mg/dL Magnesium 2.1 (1.6-2.3) mg/dL Total Bilirubin 0.50 (0.2-1.3) mg/dL AST 33 (17-59) U/L ALT 17 (0-50) U/L Alkaline Phosphatase 55 (38-126) U/L Troponin I (0.000-0.034) ng/mL NT-Pro-B Natriuret Pep 53.3 (0-900) pg/mL Serum Total Protein 7.6 (6.3-8.2) g/dL Albumin 4.5 (3.5-5.0) g/dL Urine Color (YELLOW) Urine Appearance (CLEAR) Urine pH (5-6) Ur Specific Griffin (1.005-1.025) Urine Protein (Negative) Urine Ketones (NEGATIVE) Urine Blood (0-5) Luther/ul Urine Nitrite (NEGATIVE) Urine Bilirubin (NEGATIVE) Urine Urobilinogen (0-1) mg/dL Ur Leukocyte Esterase (NEGATIVE) Urine WBC (Auto) (0-5) /HPF Urine RBC (Auto) (0-2) /HPF U Epithel Cells (Auto) (FEW) /HPF Urine Bacteria (Auto) (NEGATIVE) /HPF Urine Culture Reflexed (NO) Urine Glucose (NEGATIVE) mg/dL SARS-CoV-2 (PCR) (NEGATIVE) - Progress Progress: improved Air Movement: good Progress Note: Patient reassessed. He is well. Patient voiced no other complaints concerns. We will transfer to the [facility] for further evaluation and treatment. 01/09/20 07:31 Blood Culture(s) Obtained: Yes Antibiotics given: Yes Counseled pt/family regarding: lab results, diagnosis, need for follow-up, rad results - Departure Departure Disposition: Transfer Clinical Impression: COPD exacerbation, SOB (shortness of breath), COPD with hypoxia Condition: Stable Critical Care Time: No Referrals: DOCTOR,NO FAMILY [Primary Care Provider] - Instructions: Chronic Obstructive Pulmonary Disease
[2020-01-07 01:16] LABS: ALBUMIN 4.5 g/dL (3.5-5.0); ALKALINE PHOSPHATASE 55 U/L (38-126); ANION GAP 13.4 MEQ/L (5-15); BLOOD UREA NITROGEN 13 mg/dL (9-20); CHLORIDE 107 mmol/L (98-107); Calcium 9.4 mg/dL (8.4-10.2); Carbon Dioxide 21 mmol/L (22-30); Creatinine 1 0.95 mg/dL (0.66-1.25); EST GLOMERULAR FILTRATION RATE > 60.0 ML/MIN; Glucose 88 mg/dL (74-106); MAGNESIUM 2.1 mg/dL (1.6-2.3); NT PRO BNP 53.3 pg/mL (0-900); Potassium 3.4 mmol/L (3.5-5.1); SGOT/AST 33 U/L (17-59); SGPT/ALT 17 U/L (0-50); SODIUM 139 mmol/L (137-145); Total Protein 7.6 g/dL (6.3-8.2)
[2020-01-07 01:28] LABS: Appearance CLEAR (CLEAR); Bilirubin NEGATIVE (NEGATIVE); Blood NEGATIVE Ery/ul (0-5); Glucose NEGATIVE (NEGATIVE); Ketones NEGATIVE (NEGATIVE); Leukocyte Esterase NEGATIVE (NEGATIVE); Nitrite NEGATIVE (NEGATIVE); Protein,Urine Dip NEGATIVE (Negative); Specific Gravity 1.003 (1.005-1.025); Urobilinogen NEGATIVE mg/dL (0-1)
[2020-01-07 01:40] LABS: Bacteria NONE SEEN /HPF (NEGATIVE); WBC NONE SEEN /HPF (0-5)
[2020-01-07] MEDS ORDERED: solu-MEDROL 125 MG IV ONE (02:11)
[2020-01-07] MEDS ORDERED: ROCEPHIN 1 Gm-D5w 50 ml Bag** 1 G/50 ML IVPB IV STA (02:11)
[2020-01-07] MEDS ORDERED: ZITHROMAX IV 500 MG*** 0 MG in Sodium Chloride 0.9% 250 ML 250 ML IV ONE (02:12)
[2020-01-07] MEDS ORDERED: solu-MEDROL 125 MG ONE (02:21)
[2020-01-07] MEDS ORDERED: ROCEPHIN 1 Gm-D5w 50 ml Bag** 1 G/50 ML IVPB IV ONE (02:21)
[2020-01-07] MEDS ORDERED: Zithromax 500 MG/ 250 ML NaCl Premix 500 MG/250 ML IVPB IV ONE (02:56)
[2020-01-07] MEDS ORDERED: ZITHROMAX IV 500 MG*** 500 MG in Sodium Chloride 0.9% 250 ML 250 ML IV ONE (02:59)
[2020-01-07 08:01] VITALS: BP 145/88; PULSE 70
--- NOTE | 2020-01-07 09:13 | XRAY ---
Indication: Short of breath. Elevated d-dimer. Multiple contiguous axial images obtained through the chest using 80 cc Isovue 370 contrast and PE protocol. Comparison: December 06, 2017. There is good opacification of the pulmonary arteries to includes the lobar and segmental branches. Again no pulmonary embolus. Heart is not enlarged. Aorta is normal in course and caliber. Stable tiny right hilar calcified nodes. No pathologic mediastinal/hilar lymphadenopathy. Lungs remain hyperinflated with stable tiny right lower lobe calcified granuloma. Stable minimal right middle lobe and new lingula subsegmental atelectasis/scarring. No suspicious pulmonary mass, infiltrate, or effusion. Bony thorax remains intact. Limited upper abdomen demonstrates new 1.2 cm mid abdomen metallic density adjacent to the head of the pancreas without free fluid/air. Impression: 1. Continued negative for pulmonary embolus. 2. Stable COPD, subsegmental atelectasis/scarring, and old granulomatous disease. 2. Upper abdomen demonstrates new metallic foreign body. Comment: Preliminary interpretation was made by [facility]. No critical discrepancy.
--- NOTE | 2020-01-07 09:15 | XRAY ---
Indication: Chest pain. Comparison: April 27, 2019. Portable chest unchanged again hyperinflated and clear with incidental tiny calcified granuloma. Remaining heart and bony thorax unremarkable. No new/acute findings.
[2020-01-09 07:37] VITALS: O2SAT 94
== END 2020-01-07 07:50 | disposition short-term general hospital (02) ==
LOC: ED 00:02
DX: J44.1 Chronic obstructive pulmonary disease with (acute) exacerbation (principal); R06.02 Shortness of breath; Z79.899 Other long term (current) drug therapy
CPT/HCPCS: 36000; 36415; 71045; 71260; 80053; 81001; 83735; 83880; 84484; 85025; 85379; 87040; 93005; 93041; 94760; 96365; 96366; 96367; 96374; 99285; U0003; J0456; J0696; J2930

== ENCOUNTER 2020-09-18 00:11 | Inpatient (IN) | payer MEDICARE, OTHER ==
[2020-09-18] MEDS ORDERED: PROVENTIL 2.5 MG/3 ML NEB IH ONE ×2 (00:14→00:23)
[2020-09-18 00:44] LABS: Absolute Neutrophil Ct (ANC) 5.74 (1.4-6.9); BASOPHIL % 0.5 % (0.0-0.4); Basophil (Absolute #) 0.05 (0-0.4); Eosinophil % 2.5 % (0.00-5.0); Eosinophil (Absolute #) 0.24 (0-0.5); Hematocrit 43.3 % (42-50); Hemoglobin 13.9 gm/dl (12.5-18.0); Lymphocyte (Absolute #) 2.55 (1.0-4.6); Lymphocytes % 26.7 % (24.0-44.0); Mean Cell Volume 95.4 fl (78-100); Mean Corpuscular Hemoglobin 30.6 pg (26-32); Mean Corpuscular Hgb Concent. 32.1 g/dl (32-36); Mean Platelet Volume 9.2 fl (7.5-11.0); Monocyte (Absolute #) 0.97 (0.0-1.3); Monocytes % 10.2 % (0.0-12.0); Neutrophil % 60.1 % (36.0-66.0); Platelet Count 211 K/mm3 (150-450); Red Blood Count 4.54 M/mm3 (4.1-5.6); White Blood Count 9.6 K/mm3 (4.0-10.5)
[2020-09-18 01:06] LABS: ALBUMIN 4.4 g/dL (3.5-5.0); ALKALINE PHOSPHATASE 46 U/L (38-126); ANION GAP 11.6 MEQ/L (5-15); BLOOD UREA NITROGEN 16 mg/dL (9-20); CHLORIDE 103 mmol/L (98-107); Calcium 9.6 mg/dL (8.4-10.2); Carbon Dioxide 26 mmol/L (22-30); Creatinine 1 0.81 mg/dL (0.66-1.25); EST GLOMERULAR FILTRATION RATE > 60.0 ML/MIN; Glucose 109 mg/dL (74-106); NT PRO BNP 111 pg/mL (0-900); SGOT/AST 44 U/L (17-59); SGPT/ALT 20 U/L (0-50); SODIUM 137 mmol/L (137-145); Total Protein 7.2 g/dL (6.3-8.2)
[2020-09-18 01:33] LABS: Appearance CLEAR (CLEAR); Bilirubin NEGATIVE (NEGATIVE); Blood NEGATIVE Ery/ul (0-5); Glucose NEGATIVE (NEGATIVE); Ketones NEGATIVE (NEGATIVE); Leukocyte Esterase NEGATIVE (NEGATIVE); Nitrite NEGATIVE (NEGATIVE); Protein,Urine Dip NEGATIVE (Negative); Specific Gravity 1.016 (1.005-1.025); Urobilinogen 2 mg/dL (0-1)
[2020-09-18 01:44] LABS: INFLUENZA A NEGATIVE (NEGATIVE)
[2020-09-18 01:45] LABS: INFLUENZA B POSITIVE (NEGATIVE)
--- NOTE | 2020-09-18 01:51 | ERPHSYRPT ---
- History of Present Illness Time Seen by Provider: 09/18/20 00:45 Source: patient, EMS Exam Limitations: no limitations Patient Subjective Stated Complaint: Patient states " I have noticed in last couple of days I have been becoming more short of breath, but this evening my son stopped by and I felt like I couldn't breath when trying to talk to him so my son called 911". Triage Nursing Assessment: Patient arrived to ED via ambulance. Physician History: Patient is a 65-year-old male who gets most of his treatment at the [facility] who presents with a complaint of increasing shortness of breath over the past 2 days his son came to see him tonight and found him to be very short of breath and called the ambulance. Patient complains of increased shortness of breath with walking he did respond to a nebulizer treatment in the ambulance and was given Solu-Medrol 125 mg by EMS. His respiratory rate according to EMS range from the teens to the 20s. Patient smokes 3 packs/day Timing/Duration: yesterday Cough Quality/Degree: severe, productive cough Modifying Factors: Improves With: albuterol inhaler, coughing, exertion Associated Symptoms: cough, shortness of breath Allergies/Adverse Reactions: No Known Drug Allergies Allergy (Verified 09/18/20 00:21) Home Medications: Albuterol Sulfate [Proair Hfa] 2 puff IH UD 03/03/19 [History] Mometasone Furoate [Asmanex] 220 mcg IH HS 03/03/19 [History] Tiotropium Br/Olodaterol HCl [Stiolto Respimat Inhal [place]] 2 puff IH DAILY 03/03/19 [History] Hx Tetanus, Diphtheria Vaccination/Date Given: Yes Hx Influenza Vaccination/Date Given: No Hx Pneumococcal Vaccination/Date Given: No Immunizations Up to Date: Yes Travel Risk - International Travel Have you traveled outside of the country in past 3 weeks: No - Coronavirus Screening Are you exhibiting any of the following symptoms?: No Close contact with a COVID-19 positive Pt in past 14-21 Days: No - Vaccine Status Have you recieved a Covid-19 vaccination: Yes [employer]: Moderna - Vaccination Dates Date of 2cond Vaccination (if applicable): 08/18/20 - Review of Systems Constitutional: No Fever, No Chills Eyes: No Symptoms Ears, Nose, & Throat: No Symptoms Respiratory: Cough, Dyspnea, Dyspnea on Exertion (ROMERO), Wheezing Cardiac: No Chest Pain, No Edema, No Syncope Abdominal/Gastrointestinal: No Abdominal Pain, No Nausea, No Vomiting, No Diarrhea Genitourinary Symptoms: No Dysuria Musculoskeletal: No Back Pain, No Neck Pain Skin: No Rash Neurological: No Dizziness, No Focal Weakness, No Sensory Changes Psychological: No Symptoms Endocrine: No Symptoms All Other Systems: Reviewed and Negative - Past Medical History Pertinent Past Medical History: Yes Neurological History: No Pertinent History ENT History: No Pertinent History Cardiac History: No Pertinent History Respiratory History: Bronchitis, COPD, Pneumonia, Other Endocrine Medical History: No Pertinent History Musculoskeletal History: Arthritis GI Medical History: GERD, GI Bleed, Ulcer, Other History: No Pertinent History Psycho-Social History: Other Male Reproductive Disorders: No Pertinent History Other Medical History: few fractures - Past Surgical History Past Surgical History: Yes Neuro Surgical History: No Pertinent History Cardiac: No Pertinent History Respiratory: No Pertinent History Gastrointestinal: No Pertinent History Genitourinary: No Pertinent History Musculoskeletal: No Pertinent History Male Surgical History: No Pertinent History Other Surgical History: Had Surgery on bleeding Ulcer - Social History Smoking Status: Current every day smoker How long have you smoked: 55 years Exposure to second hand smoke: Yes Alcohol Use: Chronic (daily throughout the day including work time) Drug Use: none Patient Lives Alone: No - Nursing Vital Signs Nursing Vital Signs: Initial Vital Signs Temperature 97.2 F 09/18/20 00:19 Pulse Rate 94 H 09/18/20 00:19 Respiratory Rate 22 09/18/20 00:19 Blood Pressure 178/88 09/18/20 00:19 O2 Sat by Pulse Oximetry 97 09/18/20 00:19 Pain Scale Pain Intensity 0 - Physical Exam General Appearance: mild distress Eye Exam: PERRL/EOMI, eyes nml inspection Ears, Nose, Throat Exam: normal ENT inspection, TMs normal, pharynx normal, moist mucous membranes Neck Exam: normal inspection, non-tender, supple, full range of motion Respiratory Exam: respiratory distress, crackles/rales, rhonchi, wheezing Cardiovascular Exam: regular rate/rhythm, normal heart sounds Gastrointestinal/Abdomen Exam: soft, No tenderness Back Exam: normal inspection, No CVA tenderness, No vertebral tenderness Extremity Exam: normal inspection, normal range of motion Neurologic Exam: alert, 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, cooperative, normal mood/affect, sensation nml, No motor deficits Skin Exam: normal color, warm, dry, No rash SpO2 Interpretation: normal SpO2: 93 O2 Delivery: Room Air - Course Nursing assessment & vital signs reviewed: Yes EKG Interpreted by Me: RATE ([id number]), Sinus Rhythm, Left [place] Deviation, NORMAL INTERVALS, Non-specific ST Changes - Radiology Exams Chest X-ray Interpretation: Interpreted by me, Other (COPD) - CT Exams Chest CT Interpretation: Tele-radiologist Report Ordered Tests: Active Orders 24 hr Category Date Time Status EKG-ER Only STAT Care 09/18/20 00:14 Active Oxygen-ED Only Nasal Cannula 4 lpm Care 09/18/20 00:14 Active CHEST 1 VIEW (PORTABLE) Stat Exams 09/18/20 00:15 Taken CHEST WITH CONTRAST [CT] Stat Exams 09/18/20 01:23 Taken BLOOD CULTURE Stat Lab 09/18/20 00:35 Received CBC W DIFF Stat Lab 09/18/20 00:30 Completed CMP Stat Lab 09/18/20 00:30 Completed D-DIMER QUANTITATIVE Stat Lab 09/18/20 00:30 Completed INFLUENZA A+B ROHITH Stat Lab 09/18/20 00:25 Completed Lactic Acid Stat Lab 09/18/20 00:35 Completed NT PRO BNP Stat Lab 09/18/20 00:30 Completed TROPONIN Q3H Lab 09/18/20 00:30 Completed TROPONIN Q3H Lab 09/18/20 03:15 Ordered TROPONIN Q3H Lab 09/18/20 06:15 Ordered TROPONIN Q3H Lab 09/18/20 09:15 Ordered TROPONIN Q3H Lab 09/18/20 12:15 Ordered UA W/RFX UR CULTURE Stat Lab 09/18/20 01:10 Completed Respiratory Therapy Assessment DAILY RT 09/18/20 00:37 Active Medication Summary Discontinued Medications Generic Name Dose Route Start Last Admin Trade Name Freq PRN Reason Stop Dose Admin Albuterol Sulfate 2.5 mg 09/18/20 00:14 09/18/20 00:35 Proventil 2.5 Mg/3 Ml Neb IH 09/18/20 00:15 2.5 mg STAT ONE Administration Albuterol Sulfate Confirm 09/18/20 00:23 Proventil 2.5 Mg/3 Ml Neb Administered 09/18/20 00:24 Dose 2.5 mg IH .STK-MED ONE Lab/Rad Data: Laboratory Result Diagrams 09/18/20 00:30 09/18/20 00:30 Laboratory Results 09/18/20 09/18/20 09/18/20 Range/Units 01:10 00:35 00:30 WBC (4.0-10.5) K/mm3 RBC (4.1-5.6) M/mm3 Hgb (12.5-18.0) gm/dl Hct (42-50) % MCV (78-100) fl MCH (26-32) pg MCHC (32-36) g/dl RDW (11.5-14.0) % Plt Count (150-450) K/mm3 MPV (7.5-11.0) fl Gran % (36.0-66.0) % Eos # (Auto) (0-0.5) Absolute Lymphs (auto) (1.0-4.6) Absolute Monos (auto) (0.0-1.3) Lymphocytes % (24.0-44.0) % Monocytes % (0.0-12.0) % Eosinophils % (0.00-5.0) % Basophils % (0.0-0.4) % Absolute Granulocytes (1.4-6.9) Basophils # (0-0.4) D-Dimer (215-500) ng/mL Sodium (137-145) mmol/L Potassium (3.5-5.1) mmol/L Chloride (98-107) mmol/L Carbon Dioxide (22-30) mmol/L Anion Gap (5-15) MEQ/L BUN (9-20) mg/dL Creatinine (0.66-1.25) mg/dL Estimated GFR ML/MIN Glucose (74-106) mg/dL Lactic Acid 1.0 (0.4-2.0) Calcium (8.4-10.2) mg/dL Total Bilirubin (0.2-1.3) mg/dL AST (17-59) U/L ALT (0-50) U/L Alkaline Phosphatase (38-126) U/L Troponin I < 0.012 (0.000-0.034) ng/mL NT-Pro-B Natriuret Pep (0-900) pg/mL Serum Total Protein (6.3-8.2) g/dL Albumin (3.5-5.0) g/dL Urine Color YELLOW (YELLOW) Urine Appearance CLEAR (CLEAR) Urine pH 6.0 (5-6) Ur Specific [place] 1.016 (1.005-1.025) Urine Protein NEGATIVE (Negative) Urine Ketones NEGATIVE (NEGATIVE) Urine Blood NEGATIVE (0-5) Luther/ul Urine Nitrite NEGATIVE (NEGATIVE) Urine Bilirubin NEGATIVE (NEGATIVE) Urine Urobilinogen 2 (0-1) mg/dL Ur Leukocyte Esterase NEGATIVE (NEGATIVE) Urine WBC (Auto) NONE (0-5) /HPF Urine RBC (Auto) NONE (0-2) /HPF U Epithel Cells (Auto) NONE (FEW) /HPF Urine Bacteria (Auto) NONE (NEGATIVE) /HPF Urine Culture Reflexed NO (NO) Urine Glucose NEGATIVE (NEGATIVE) mg/dL Influenza Type A Ag (NEGATIVE) Influenza Type B Ag (NEGATIVE) 09/18/20 09/18/20 09/18/20 Range/Units 00:30 00:30 00:30 WBC 9.6 (4.0-10.5) K/mm3 RBC 4.54 (4.1-5.6) M/mm3 Hgb 13.9 (12.5-18.0) gm/dl Hct 43.3 (42-50) % MCV 95.4 (78-100) fl MCH 30.6 (26-32) pg MCHC 32.1 (32-36) g/dl RDW 16.0 H (11.5-14.0) % Plt Count 211 (150-450) K/mm3 MPV 9.2 (7.5-11.0) fl Gran % 60.1 (36.0-66.0) % Eos # (Auto) 0.24 (0-0.5) Absolute Lymphs (auto) 2.55 (1.0-4.6) Absolute Monos (auto) 0.97 (0.0-1.3) Lymphocytes % 26.7 (24.0-44.0) % Monocytes % 10.2 (0.0-12.0) % Eosinophils % 2.5 (0.00-5.0) % Basophils % 0.5 (0.0-0.4) % Absolute Granulocytes 5.74 (1.4-6.9) Basophils # 0.05 (0-0.4) D-Dimer 841 H* (215-500) ng/mL Sodium 137 (137-145) mmol/L Potassium 4.0 (3.5-5.1) mmol/L Chloride 103 (98-107) mmol/L Carbon Dioxide 26 (22-30) mmol/L Anion Gap 11.6 (5-15) MEQ/L BUN 16 (9-20) mg/dL Creatinine 0.81 (0.66-1.25) mg/dL Estimated GFR > 60.0 ML/MIN Glucose 109 H (74-106) mg/dL Lactic Acid (0.4-2.0) Calcium 9.6 (8.4-10.2) mg/dL Total Bilirubin 0.40 (0.2-1.3) mg/dL AST 44 (17-59) U/L ALT 20 (0-50) U/L Alkaline Phosphatase 46 (38-126) U/L Troponin I (0.000-0.034) ng/mL NT-Pro-B Natriuret Pep 111 (0-900) pg/mL Serum Total Protein 7.2 (6.3-8.2) g/dL Albumin 4.4 (3.5-5.0) g/dL Urine Color (YELLOW) Urine Appearance (CLEAR) Urine pH (5-6) Ur Specific [place] (1.005-1.025) Urine Protein (Negative) Urine Ketones (NEGATIVE) Urine Blood (0-5) Luther/ul Urine Nitrite (NEGATIVE) Urine Bilirubin (NEGATIVE) Urine Urobilinogen (0-1) mg/dL Ur Leukocyte Esterase (NEGATIVE) Urine WBC (Auto) (0-5) /HPF Urine RBC (Auto) (0-2) /HPF U Epithel Cells (Auto) (FEW) /HPF Urine Bacteria (Auto) (NEGATIVE) /HPF Urine Culture Reflexed (NO) Urine Glucose (NEGATIVE) mg/dL Influenza Type A Ag (NEGATIVE) Influenza Type B Ag (NEGATIVE) 09/18/20 Range/Units 00:25 WBC (4.0-10.5) K/mm3 RBC (4.1-5.6) M/mm3 Hgb (12.5-18.0) gm/dl Hct (42-50) % MCV (78-100) fl MCH (26-32) pg MCHC (32-36) g/dl RDW (11.5-14.0) % Plt Count (150-450) K/mm3 MPV (7.5-11.0) fl Gran % (36.0-66.0) % Eos # (Auto) (0-0.5) Absolute Lymphs (auto) (1.0-4.6) Absolute Monos (auto) (0.0-1.3) Lymphocytes % (24.0-44.0) % Monocytes % (0.0-12.0) % Eosinophils % (0.00-5.0) % Basophils % (0.0-0.4) % Absolute Granulocytes (1.4-6.9) Basophils # (0-0.4) D-Dimer (215-500) ng/mL Sodium (137-145) mmol/L Potassium (3.5-5.1) mmol/L Chloride (98-107) mmol/L Carbon Dioxide (22-30) mmol/L Anion Gap (5-15) MEQ/L BUN (9-20) mg/dL Creatinine (0.66-1.25) mg/dL Estimated GFR ML/MIN Glucose (74-106) mg/dL Lactic Acid (0.4-2.0) Calcium (8.4-10.2) mg/dL Total Bilirubin (0.2-1.3) mg/dL AST (17-59) U/L ALT (0-50) U/L Alkaline Phosphatase (38-126) U/L Troponin I (0.000-0.034) ng/mL NT-Pro-B Natriuret Pep (0-900) pg/mL Serum Total Protein (6.3-8.2) g/dL Albumin (3.5-5.0) g/dL Urine Color (YELLOW) Urine Appearance (CLEAR) Urine pH (5-6) Ur Specific [place] (1.005-1.025) Urine Protein (Negative) Urine Ketones (NEGATIVE) Urine Blood (0-5) Luther/ul Urine Nitrite (NEGATIVE) Urine Bilirubin (NEGATIVE) Urine Urobilinogen (0-1) mg/dL Ur Leukocyte Esterase (NEGATIVE) Urine WBC (Auto) (0-5) /HPF Urine RBC (Auto) (0-2) /HPF U Epithel Cells (Auto) (FEW) /HPF Urine Bacteria (Auto) (NEGATIVE) /HPF Urine Culture Reflexed (NO) Urine Glucose (NEGATIVE) mg/dL Influenza Type A Ag NEGATIVE (NEGATIVE) Influenza Type B Ag POSITIVE (NEGATIVE) - Progress Progress: improved Air Movement: fair Blood Culture(s) Obtained: No Antibiotics given: No - Departure Departure Disposition: In-patient Admission Clinical Impression: COPD exacerbation, COPD with hypoxia, Influenza B Condition: Fair Critical Care Time: No Referrals: DOCTOR,NO FAMILY [Primary Care Provider] - Instructions: Chronic Obstructive Pulmonary Disease
[2020-09-18] MEDS ORDERED: Sodium Chloride 0.9% 1000 ML 1,000 ML IV SCH (03:15)
[2020-09-18 04:18] LABS: Hematocrit 42.9 % (42-50); Hemoglobin 13.6 gm/dl (12.5-18.0); Mean Corpuscular Hemoglobin 30.4 pg (26-32); Mean Corpuscular Hgb Concent. 31.7 g/dl (32-36); Mean Platelet Volume 9.5 fl (7.5-11.0); Platelet Count 235 K/mm3 (150-450); Red Blood Count 4.47 M/mm3 (4.1-5.6); Red Cell Distribution Width 16.1 % (11.5-14.0); White Blood Count 8.5 K/mm3 (4.0-10.5)
[2020-09-18 04:34] LABS: ALBUMIN 4.3 g/dL (3.5-5.0); ALKALINE PHOSPHATASE 44 U/L (38-126); ANION GAP 9.5 MEQ/L (5-15); BLOOD UREA NITROGEN 14 mg/dL (9-20); CHLORIDE 103 mmol/L (98-107); Calcium 9.5 mg/dL (8.4-10.2); Carbon Dioxide 28 mmol/L (22-30); Creatinine 1 0.74 mg/dL (0.66-1.25); EST GLOMERULAR FILTRATION RATE > 60.0 ML/MIN; Glucose 113 mg/dL (74-106); Potassium 3.9 mmol/L (3.5-5.1); SGOT/AST 44 U/L (17-59); SGPT/ALT 21 U/L (0-50); SODIUM 136 mmol/L (137-145); Total Protein 7.2 g/dL (6.3-8.2)
[2020-09-18 04:53] LABS: INFLUENZA A NEGATIVE (NEGATIVE); INFLUENZA B NEGATIVE (NEGATIVE); RESPIRATORY SYNCTIAL VIRUS NEGATIVE (Negative)
[2020-09-18] MEDS ORDERED: DUONEB 0.5-3 MG/3 ml Neb IH ONE (05:49)
[2020-09-18] MEDS: DUONEB 0.5-3 MG/3 ml Neb IH SCH ×3 (05:53→14:01)
[2020-09-18] MEDS ORDERED: DUONEB 0.5-3 MG/3 ml Neb IH PRN (07:01)
--- NOTE | 2020-09-18 08:00 | XRAY ---
Indication: Short of breath. Elevated d-dimer. Influenza. Multiple contiguous axial images obtained through the chest using 80 cc of Isovue 370 contrast and PE protocol. Comparison: January 07, 2020. There is good opacification of the pulmonary arteries to include the lobar and segmental branches. No pulmonary embolus. Heart not enlarged. Aorta remains normal in course and caliber. No pathologic mediastinal/hilar lymphadenopathy. Lungs again demonstrates diffuse pulmonary emphysema with tiny right lower lobe calcified granuloma and right middle lobe/lingula subsegmental atelectasis/scarring. No suspicious pulmonary mass, infiltrate, or effusion. Bony thorax remains intact. Limited upper abdomen again demonstrates mid abdomen metallic density. Impression: 1. Continued negative pulmonary embolus. No new/acute cardiopulmonary abnormalities. 2. Stable COPD, subsegmental atelectasis/scarring, and old granulomatous disease. Comment: Preliminary interpretation was made by [facility]. No critical discrepancy.
--- NOTE | 2020-09-18 08:02 | XRAY ---
Indication: Dyspnea. Comparison: January 07, 2020. Portable chest remains hyperinflated with tiny right lower lobe calcified granuloma. New minimal left base subsegmental atelectasis/scarring. Remaining heart and lungs unremarkable. Bony thorax intact. Impression: Nonacute hyperinflated chest with chronic features.
[2020-09-18] MEDS ORDERED: Tamiflu 75MG Capsule PO SCH (10:00)
[2020-09-18] MEDS ORDERED: solu-MEDROL 125 MG IV SCH (10:00)
[2020-09-18] MEDS ORDERED: Zithromax 500 MG/ 250 ML NaCl Premix 500 MG/250 ML IVPB IV SCH (11:00)
[2020-09-18] MEDS ORDERED: DELTASONE 20 MG PO SCH (11:00)
[2020-09-18 12:14] VITALS: BP 127/69
[2020-09-18 14:05] VITALS: PULSE 94; O2SAT 93
[2020-09-18] MEDS ORDERED: ADVAIR 500-50 DISKUS IH SCH (19:00)
[2020-09-18] MEDS ORDERED: WIXELA 500-50 INHUB IH SCH (19:00)
[2020-09-19] MEDS ORDERED: ROCEPHIN 1 Gm-D5w 50 ml Bag** 1 G/50 ML IVPB IV SCH (12:00)
--- NOTE | 2020-10-01 20:28 | PCM.SSS ---
History of Present Illness - Chief Complaint Chief Complaint: COPD EXAC, FLU B, COPD W HYPOXIA Date: 09/18/20 History of Present Illness: Mr.MCKEE GREGORIO is a 65 year old male. presented to ER with increasing sob over the past few days, noted to be more hypoxic than usual and admitted for observation. - Review of Systems Constitutional: No Fever, No Chills Eyes: No Symptoms Ears, Nose, & Throat: No Symptoms Respiratory: Cough, Short Of Breath, Wheezing Cardiac: No Chest Pain, No Edema, No Syncope Abdominal/Gastrointestinal: No Abdominal Pain, No Nausea, No Vomiting, No Diarrhea Genitourinary Symptoms: No Dysuria Musculoskeletal: No Back Pain, No Neck Pain Skin: No Rash Neurological: No Dizziness, No Focal Weakness, No Sensory Changes Psychological: No Symptoms Endocrine: No Symptoms Hematologic/Lymphatic: No Symptoms Immunological/Allergic: No Symptoms Medications & Allergies Home Medications: Home Medication List Albuterol Sulfate [Proair Hfa] 2 puff IH UD 03/03/19 [History Confirmed 09/18/20] Mometasone Furoate [Asmanex] 220 mcg IH HS 03/03/19 [History Confirmed 09/18/20] Tiotropium Br/Olodaterol HCl [Stiolto Respimat Inhal [place]] 2 puff IH DAILY 03/03/19 [History Confirmed 09/18/20] Amox Tr/Potass Clav. 875 mg [Augmentin 875-125 Tablet] 875 mg PO BID 10 Days #20 tablet 09/18/20 [Rx] Azithromycin 250 mg [Zithromax 250 MG TABLET] 250 mg PO ZPACK #6 tablet 09/18/20 [Rx] Methylprednisolone Packet [Medrol Dosepack] 4 mg PO UD #21 packet 09/18/20 [Rx] Allergies/Adverse Reactions: Allergies Allergy/AdvReac Type Severity Reaction Status Date / Time No Known Drug Allergies Allergy Verified 09/18/20 00:21 - Past Medical History Past Medical History: Yes Neurological History: No Pertinent History ENT History: No Pertinent History Cardiac History: No Pertinent History CARDIAC HISTORY: No Pertinent History Respiratory History: Bronchitis, COPD, Pneumonia, Other Endocrine Medical History: No Pertinent History Musculoskelatal History: Arthritis GI Medical History: GERD, GI Bleed, Ulcer, Other History: No Pertinent History Pyscho-Social History: Other Male Reproductive Disorders: No Pertinent History Comment: few fractures - Past Surgical History Past Surgical History: Yes Neuro Surgical History: No Pertinent History Cardiac History: No Pertinent History Respiratory Surgery: No Pertinent History GI Surgical History: No Pertinent History Genitourinary Surgical Hx: No Pertinent History Musculskeletal Surgical Hx: No Pertinent History Male Surgical History: No Pertinent History Other Surgical History: Had Surgery on bleeding Ulcer - Social History Smoking Status: Current every day smoker How long have you smoked: 55 years Exposure to second hand smoke: Yes Alcohol: Heavy, Daily Drug Use: none - Physical Exam General Appearance: no apparent distress, alert Neurologic Exam: alert, 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, cooperative, normal mood/affect, nml cerebellar function, nml station & gait, sensation nml, No motor deficits Eye Exam: PERRL/EOMI, eyes nml inspection Ears, Nose, Throat Exam: normal ENT inspection, TMs normal, pharynx normal, moist mucous membranes Neck Exam: normal inspection, non-tender, supple, full range of motion Respiratory Exam: normal breath sounds, diminished breath sounds, prolonged expirations, No respiratory distress Cardiovascular Exam: regular rate/rhythm, normal heart sounds, normal peripheral pulses Gastrointestinal/Abdomen Exam: soft, normal bowel sounds, No tenderness, No mass Back Exam: normal inspection, normal range of motion, No CVA tenderness, No vertebral tenderness Extremity Exam: normal inspection, normal range of motion, pelvis stable Skin Exam: normal color, warm, dry, No rash Lymphatic Exam: No adenopathy Results - Labs Lab/Micro Results: Microbiology 09/18/20 00:35 Blood Culture Gram Stain - Final Blood Not Reportable Blood Culture - Final NO GROWTH 09/18/20 00:30 Blood Culture Gram Stain - Final Blood Not Reportable Blood Culture - Final NO GROWTH Assessment/Plan (1) COPD with exacerbation Status: Acute Assessment & Plan: iv steroids and antibiotics Code(s): J44.1 - CHRONIC OBSTRUCTIVE PULMONARY DISEASE W (ACUTE) EXACERBATION Hospital Summary - Hospital Course Hospital Course: Pt. admitted and started on appropriate antibiotics and steroids, pt. was feeling at baseline and much improved the following am, pt. was adament to go home and kept until mid afternoon, he still noted he was at his baseline and wanted to go home, pt sent home on appropriate outpatient therapy - Vitals & Intake/Output Vital Signs: Vital Signs Temperature 96.1 F 09/18/20 12:00 Pulse Rate 94 H 09/18/20 14:03 Respiratory Rate 20 09/18/20 14:03 Blood Pressure 127/69 09/18/20 12:00 O2 Sat by Pulse Oximetry 93 L 09/18/20 14:03 - Lab Result Diagrams: 09/18/20 04:00 09/18/20 04:00 Micro Results-Entire Visit: Microbiology 09/18/20 00:35 Blood Culture Gram Stain - Final Blood Not Reportable Blood Culture - Final NO GROWTH 09/18/20 00:30 Blood Culture Gram Stain - Final Blood Not Reportable Blood Culture - Final NO GROWTH - Procedures and Test Procedures and Tests throughout Hospitalization: Therapy Orders & Screens 09/18/20 00:37 Respiratory Therapy Assessment DAILY Comment: 09/18/20 03:08 Respiratory Therapy Consult ROUTINE Comment: Reason For Exam: 09/18/20 07:00 Respiratory MDI BID Comment: ADVAIR 500-50 BID 09/18/20 07:02 Oxygen NASAL CANNULA 2 lpm Comment: 09/18/20 08:52 Smoking Cessation Education ONCE Comment: Diagnosis: COPD EXAC, FLU B, COPD W HYPOXIA Smoking Status: Current every day smoker How long have you smoked: 55 years Have you smoked in the past 12 months: Yes Approximately how many cigarettes per day: 2-3 pk Do you dip or chew tobacco: No - Discharge Disposition: Home, Self-Care Condition: Stable Prescriptions: New Amox Tr/Potass Clav. 875 mg [Augmentin 875-125 Tablet] 875 mg PO BID 10 Days #20 tablet Methylprednisolone Packet [Medrol Dosepack] 4 mg PO UD #21 packet Azithromycin 250 mg [Zithromax 250 MG TABLET] 250 mg PO ZPACK #6 tablet Continue Tiotropium Br/Olodaterol HCl [Stiolto Respimat Inhal [place]] 2 puff IH DAILY Mometasone Furoate [Asmanex] 220 mcg IH HS Albuterol Sulfate [Proair Hfa] 2 puff IH UD Instructions: Flu, Adult (DC) Additional Instructions: FOLLOW UP WITH PRIMARY CARE PHYSICIAN
== END 2020-09-18 15:20 | disposition home or self-care (01) | DRG 192 ==
LOC: ED 00:11 → MED SURG 05:16
PROVIDERS: ADMIT Family Medicine; ATTEND Family Medicine
DX: J44.1 Chronic obstructive pulmonary disease with (acute) exacerbation (principal); F17.210 Nicotine dependence, cigarettes, uncomplicated; Z79.899 Other long term (current) drug therapy; Z20.828 Contact with and (suspected) exposure to other viral communicable diseases; R09.02 Hypoxemia
CPT/HCPCS: 0241U; 36415; 71045; 71260; 80053; 81001; 83605; 83880; 84484; 85025; 85027; 85379; 87040; 87400; 93005; 94640; 94762; 99285; J0456; J2930; J7609; A9270-GY

== ENCOUNTER 2020-10-31 20:45 | Observation (INO) | payer MEDICARE, OTHER ==
[2020-10-31] MEDS ORDERED: solu-MEDROL 125 MG IV ONE (20:50)
[2020-10-31] MEDS ORDERED: DUONEB 0.5-3 MG/3 ml Neb IH ONE ×2 (20:50→21:27)
[2020-10-31] MEDS ORDERED: Sodium Chloride 0.9% 1000 ML 1,000 ML IV STA (20:50)
[2020-10-31] MEDS ORDERED: ROCEPHIN 1 Gm-D5w 50 ml Bag** 1 G/50 ML IVPB IV STA (20:50)
[2020-10-31] MEDS ORDERED: solu-MEDROL 125 MG ONE (21:12)
[2020-10-31] MEDS ORDERED: Sodium Chloride 0.9% 1000 ML 1,000 ML ONE (21:12)
[2020-10-31] MEDS ORDERED: ROCEPHIN 1 Gm-D5w 50 ml Bag** 1 G/50 ML IVPB IV ONE (21:12)
--- NOTE | 2020-10-31 21:43 | ERPHSYRPT ---
- History of Present Illness Time Seen by Provider: 10/31/20 20:55 Source: patient Exam Limitations: no limitations Patient Subjective Stated Complaint: pt states he has been increasingly short of breath at home since sunday. states he is hort of breath with exertion only Triage Nursing Assessment: pt alert and oriented, answers questions approp. pt ambulates into room without difficulty. steady gait noted. respirations shallow. exp wheezes noted throughout. skin warm and dry. Physician History: Patient is a 65-year-old longstanding COPD here who presents with a complaint of shortness of breath. He is not on home O2 he arrived at 93% on room air he has increased shortness of breath with any movement he continues to smoke he denies any chills fever sweats he has had his Covid vaccine. Timing/Duration: yesterday Activities at Onset: none Severity of Dyspnea-Max: moderate Severity of Dyspnea-Current: moderate Possible Cause: frequent episodes Modifying Factors: Improves With: albuterol inhaler, albuterol nebulizer, coughing Associated Symptoms: cough, wheezing Allergies/Adverse Reactions: No Known Drug Allergies Allergy (Verified 11/01/20 00:44) Home Medications: Albuterol Sulfate [Proair Hfa] 2 puff IH UD 03/03/19 [History] Mometasone Furoate [Asmanex] 220 mcg IH HS 03/03/19 [History] Tiotropium Br/Olodaterol HCl [Stiolto Respimat Inhal [place]] 2 puff IH DAILY 03/03/19 [History] Hx Tetanus, Diphtheria Vaccination/Date Given: Yes Hx Influenza Vaccination/Date Given: No Hx Pneumococcal Vaccination/Date Given: No Immunizations Up to Date: Yes Travel Risk - International Travel Have you traveled outside of the country in past 3 weeks: No - Coronavirus Screening Are you exhibiting any of the following symptoms?: No Close contact with a COVID-19 positive Pt in past 14-21 Days: No - Vaccine Status Have you recieved a Covid-19 vaccination: Yes 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 - Vaccination Dates Date of 2cond Vaccination (if applicable): august 15, 2020 - Review of Systems Constitutional: No Fever, No Chills Eyes: No Symptoms Ears, Nose, & Throat: No Symptoms Respiratory: Cough, Dyspnea, Wheezing Cardiac: No Chest Pain, No Edema, No Syncope Abdominal/Gastrointestinal: No Abdominal Pain, No Nausea, No Vomiting, No Diarrhea Genitourinary Symptoms: No Dysuria Musculoskeletal: No Back Pain, No Neck Pain Skin: No Rash Neurological: No Dizziness, No Focal Weakness, No Sensory Changes Psychological: No Symptoms Endocrine: No Symptoms All Other Systems: Reviewed and Negative - Past Medical History Pertinent Past Medical History: Yes Neurological History: No Pertinent History ENT History: No Pertinent History Cardiac History: No Pertinent History Respiratory History: Bronchitis, COPD, Pneumonia, Other Endocrine Medical History: No Pertinent History Musculoskeletal History: Arthritis GI Medical History: GERD, GI Bleed, Ulcer, Other History: No Pertinent History Psycho-Social History: Other Male Reproductive Disorders: No Pertinent History Other Medical History: few fractures - Past Surgical History Past Surgical History: Yes Neuro Surgical History: No Pertinent History Cardiac: No Pertinent History Respiratory: No Pertinent History Gastrointestinal: No Pertinent History Genitourinary: No Pertinent History Musculoskeletal: No Pertinent History Male Surgical History: No Pertinent History Other Surgical History: Had Surgery on bleeding Ulcer - Social History Smoking Status: Current every day smoker How long have you smoked: 55 years Exposure to second hand smoke: Yes Alcohol Use: Chronic (daily throughout the day including work time) Drug Use: none Patient Lives Alone: No - Nursing Vital Signs Nursing Vital Signs: Initial Vital Signs Temperature 98.3 F 10/31/20 20:48 Pulse Rate 92 H 10/31/20 20:48 Respiratory Rate 24 10/31/20 20:48 Blood Pressure 113/81 10/31/20 20:48 O2 Sat by Pulse Oximetry 91 L 10/31/20 20:48 Pain Scale Pain Intensity 0 - Physical Exam General Appearance: mild distress, alert Eye Exam: PERRL/EOMI Neck Exam: normal inspection, supple Respiratory Exam: respiratory distress, diminished breath sounds, rhonchi, wheezing Cardiovascular/Chest Exam: normal heart sounds, regular rate/rhythm Abdominal/Gastrointestinal Exam: soft, No tenderness, No distention, No mass Extremity Exam: non-tender, normal range of motion, normal inspection, no calf tenderness, no pedal edema Neurologic Exam: alert, 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, cooperative, national coverage specialist II-XII nml as tested, sensation nml, No motor deficits Skin Exam: normal color, warm, No dry SpO2 Interpretation: hypoxic, O2 applied SpO2: 97 O2 Delivery: Nasal Cannula - Course Nursing assessment & vital signs reviewed: Yes EKG Interpreted by Me: RATE ([id number]), Sinus Rhythm, Left [place] Deviation, Non- specific ST Changes - Radiology Exams Chest X-ray Interpretation: Interpreted by me, Other (copd) - CT Exams Chest CT Interpretation: Tele-radiologist Report, Other (No pulmonary emboli noted pathology) Ordered Tests: Active Orders 24 hr Category Date Time Status EKG-ER Only STAT Care 10/31/20 20:50 Active IV Insertion STAT Care 10/31/20 20:50 Active Oxygen-ED Only Nasal Cannula 2 lpm Care 10/31/20 20:50 Active CHEST 1 VIEW (PORTABLE) Stat Exams 10/31/20 20:51 Taken CHEST WITH CONTRAST [CT] Stat Exams 10/31/20 22:14 Taken BLOOD CULTURE Stat Lab 10/31/20 21:35 Received CBC W DIFF Stat Lab 10/31/20 21:35 Completed CMP Stat Lab 10/31/20 21:35 Completed D-DIMER QUANTITATIVE Stat Lab 10/31/20 21:35 Completed INFLUENZA A+B ROHITH Stat Lab 10/31/20 21:35 Completed Lactic Acid Stat Lab 10/31/20 20:58 Completed MAGNESIUM Stat Lab 10/31/20 21:35 Completed NT PRO BNP Stat Lab 10/31/20 21:35 Completed TROPONIN Q3H Lab 10/31/20 21:35 Completed TROPONIN Q3H Lab 11/01/20 00:25 Received TROPONIN Q3H Lab 11/01/20 03:00 Ordered TROPONIN Q3H Lab 11/01/20 06:00 Ordered TROPONIN Q3H Lab 11/01/20 09:00 Ordered Respiratory Therapy Assessment DAILY RT 10/31/20 21:32 Completed Medication Summary Discontinued Medications Generic Name Dose Route Start Last Admin Trade Name Freq PRN Reason Stop Dose Admin Albuterol/Ipratropium 3 ml 10/31/20 20:50 10/31/20 21:30 Duoneb 0.5-3 Mg/3 Ml Neb IH 10/31/20 20:51 3 ml STAT ONE Administration Albuterol/Ipratropium Confirm 10/31/20 21:27 Duoneb 0.5-3 Mg/3 Ml Neb Administered 10/31/20 21:28 Dose 3 ml IH .STK-MED ONE Sodium Chloride 1,000 mls @ 999 mls/hr 10/31/20 20:50 10/31/20 21:17 Sodium Chloride 0.9% 1000 Ml IV 10/31/20 21:50 999 mls/hr .Q1H1M STA Administration Ceftriaxone Sodium/Dextrose 1 g in 50 mls @ 100 mls/hr 10/31/20 20:50 10/31/20 21:40 Rocephin 1 Gm-D5w 50 Ml Bag IV 10/31/20 21:19 100 ml/hr STAT STA 100 mls/hr Administration Sodium Chloride Confirm 10/31/20 21:12 Sodium Chloride 0.9% 1000 Ml Administered 10/31/20 21:13 Dose 1,000 mls @ ud .ROUTE .STK-MED ONE Ceftriaxone Sodium/Dextrose Confirm 10/31/20 21:12 Rocephin 1 Gm-D5w 50 Ml Bag Administered 10/31/20 21:13 Dose 1 g in 50 mls @ ud IV .STK-MED ONE Methylprednisolone Sodium Succinate 125 mg 10/31/20 20:50 10/31/20 21:17 Solu-Medrol 125 Mg IV 10/31/20 20:51 125 mg STAT ONE Administration Methylprednisolone Sodium Succinate Confirm 10/31/20 21:12 Solu-Medrol 125 Mg Administered 10/31/20 21:13 Dose 125 mg .ROUTE .STK-MED ONE Lab/Rad Data: Laboratory Result Diagrams 10/31/20 21:35 10/31/20 21:35 Laboratory Results 10/31/20 10/31/20 10/31/20 Range/Units 21:35 21:35 21:35 WBC (4.0-10.5) K/mm3 RBC (4.1-5.6) M/mm3 Hgb (12.5-18.0) gm/dl Hct (42-50) % MCV (78-100) fl MCH (26-32) pg MCHC (32-36) g/dl RDW (11.5-14.0) % Plt Count (150-450) K/mm3 MPV (7.5-11.0) fl Gran % (36.0-66.0) % Eos # (Auto) (0-0.5) Absolute Lymphs (auto) (1.0-4.6) Absolute Monos (auto) (0.0-1.3) Lymphocytes % (24.0-44.0) % Monocytes % (0.0-12.0) % Eosinophils % (0.00-5.0) % Basophils % (0.0-0.4) % Absolute Granulocytes (1.4-6.9) Basophils # (0-0.4) D-Dimer 700 H* (215-500) ng/mL Sodium 133 L (137-145) mmol/L Potassium 4.1 (3.5-5.1) mmol/L Chloride 101 (98-107) mmol/L Carbon Dioxide 23 (22-30) mmol/L Anion Gap 13.4 (5-15) MEQ/L BUN 11 (9-20) mg/dL Creatinine 0.65 L (0.66-1.25) mg/dL Estimated GFR > 60.0 ML/MIN Glucose 89 (74-106) mg/dL Lactic Acid (0.4-2.0) Calcium 8.8 (8.4-10.2) mg/dL Magnesium 1.7 (1.6-2.3) mg/dL Total Bilirubin 0.20 (0.2-1.3) mg/dL AST 39 (17-59) U/L ALT 16 (0-50) U/L Alkaline Phosphatase 44 (38-126) U/L Troponin I < 0.012 (0.000-0.034) ng/mL NT-Pro-B Natriuret Pep 74.2 (0-900) pg/mL Serum Total Protein 6.6 (6.3-8.2) g/dL Albumin 4.0 (3.5-5.0) g/dL Influenza Type A Ag (NEGATIVE) Influenza Type B Ag (NEGATIVE) 10/31/20 10/31/20 10/31/20 Range/Units 21:35 21:35 20:58 WBC 9.5 (4.0-10.5) K/mm3 RBC 4.72 (4.1-5.6) M/mm3 Hgb 14.2 (12.5-18.0) gm/dl Hct 44.5 (42-50) % MCV 94.3 (78-100) fl MCH 30.1 (26-32) pg MCHC 31.9 L (32-36) g/dl RDW 15.7 H (11.5-14.0) % Plt Count 235 (150-450) K/mm3 MPV 9.8 (7.5-11.0) fl Gran % 60.7 (36.0-66.0) % Eos # (Auto) 0.20 (0-0.5) Absolute Lymphs (auto) 2.60 (1.0-4.6) Absolute Monos (auto) 0.88 (0.0-1.3) Lymphocytes % 27.4 (24.0-44.0) % Monocytes % 9.3 (0.0-12.0) % Eosinophils % 2.1 (0.00-5.0) % Basophils % 0.5 (0.0-0.4) % Absolute Granulocytes 5.75 (1.4-6.9) Basophils # 0.05 (0-0.4) D-Dimer (215-500) ng/mL Sodium (137-145) mmol/L Potassium (3.5-5.1) mmol/L Chloride (98-107) mmol/L Carbon Dioxide (22-30) mmol/L Anion Gap (5-15) MEQ/L BUN (9-20) mg/dL Creatinine (0.66-1.25) mg/dL Estimated GFR ML/MIN Glucose (74-106) mg/dL Lactic Acid 1.5 (0.4-2.0) Calcium (8.4-10.2) mg/dL Magnesium (1.6-2.3) mg/dL Total Bilirubin (0.2-1.3) mg/dL AST (17-59) U/L ALT (0-50) U/L Alkaline Phosphatase (38-126) U/L Troponin I (0.000-0.034) ng/mL NT-Pro-B Natriuret Pep (0-900) pg/mL Serum Total Protein (6.3-8.2) g/dL Albumin (3.5-5.0) g/dL Influenza Type A Ag NEGATIVE (NEGATIVE) Influenza Type B Ag NEGATIVE (NEGATIVE) - Progress Progress: improved Air Movement: fair Blood Culture(s) Obtained: Yes Antibiotics given: Yes Discussed with : Da Will see patient in: hospital (observation) - Departure Departure Disposition: Observation Clinical Impression: COPD exacerbation Condition: Fair Critical Care Time: No Referrals: DOCTOR,NO FAMILY [Primary Care Provider] - Instructions: Chronic Obstructive Pulmonary Disease, Exacerbation of COPD (DC)
[2020-10-31 21:45] LABS: Absolute Neutrophil Ct (ANC) 5.75 (1.4-6.9); BASOPHIL % 0.5 % (0.0-0.4); Basophil (Absolute #) 0.05 (0-0.4); Eosinophil % 2.1 % (0.00-5.0); Hematocrit 44.5 % (42-50); Hemoglobin 14.2 gm/dl (12.5-18.0); Lymphocytes % 27.4 % (24.0-44.0); Mean Cell Volume 94.3 fl (78-100); Mean Corpuscular Hemoglobin 30.1 pg (26-32); Mean Corpuscular Hgb Concent. 31.9 g/dl (32-36); Mean Platelet Volume 9.8 fl (7.5-11.0); Monocyte (Absolute #) 0.88 (0.0-1.3); Monocytes % 9.3 % (0.0-12.0); Neutrophil % 60.7 % (36.0-66.0); Platelet Count 235 K/mm3 (150-450); Red Blood Count 4.72 M/mm3 (4.1-5.6); Red Cell Distribution Width 15.7 % (11.5-14.0); White Blood Count 9.5 K/mm3 (4.0-10.5)
[2020-10-31 22:12] LABS: ALKALINE PHOSPHATASE 44 U/L (38-126); ANION GAP 13.4 MEQ/L (5-15); BLOOD UREA NITROGEN 11 mg/dL (9-20); CHLORIDE 101 mmol/L (98-107); Calcium 8.8 mg/dL (8.4-10.2); Carbon Dioxide 23 mmol/L (22-30); Creatinine 1 0.65 mg/dL (0.66-1.25); EST GLOMERULAR FILTRATION RATE > 60.0 ML/MIN; Glucose 89 mg/dL (74-106); MAGNESIUM 1.7 mg/dL (1.6-2.3); NT PRO BNP 74.2 pg/mL (0-900); Potassium 4.1 mmol/L (3.5-5.1); SGOT/AST 39 U/L (17-59); SGPT/ALT 16 U/L (0-50); SODIUM 133 mmol/L (137-145); Total Protein 6.6 g/dL (6.3-8.2)
[2020-10-31 22:13] LABS: INFLUENZA A NEGATIVE (NEGATIVE); INFLUENZA B NEGATIVE (NEGATIVE)
[2020-11-01] MEDS ORDERED: Sodium Chloride 0.9% 1000 ML 1,000 ML IV SCH (01:15)
[2020-11-01] MEDS: solu-MEDROL 125 MG IV SCH ×2 (05:36→12:06)
[2020-11-01] MEDS: PROVENTIL 2.5 MG/3 ML NEB IH SCH ×2 (05:56→10:30)
[2020-11-01] MEDS ORDERED: Advair Hfa 230/21 Mcg COMMON CANISTER IH SCH (07:00)
--- NOTE | 2020-11-01 08:49 | XRAY ---
Indication: Short of breath. COPD. Elevated d-dimer. Multiple contiguous axial images obtained through the chest using 100 cc Isovue 370 contrast and PE protocol. Comparison: September 18, 2020. There is good opacification of the pulmonary arteries to include the lobar and segmental branches. No pulmonary embolus. Heart not enlarged. Aorta is normal in course and caliber. No pathologic mediastinal/hilar lymphadenopathy. Lungs again demonstrates diffuse pulmonary emphysema, tiny right lower lobe calcified granuloma, and right middle lobe/lingula subsegmental atelectasis/scarring. No pulmonary mass, infiltrate, or effusion. Bony thorax intact. Limited upper abdomen unremarkable. Impression: 1. Continued negative for pulmonary embolus. No new/acute cardiopulmonary abnormalities. 2. Again incidental pulmonary emphysema, atelectasis/scarring, and old granulomatous disease.. Comment: Preliminary interpretation was made by [facility]. No critical discrepancy.
--- NOTE | 2020-11-01 08:52 | XRAY ---
Indication: Short of breath. COPD. Comparison: September 18, 2020. Portable chest remains hyperinflated and clear with incidental right lower lobe calcified granuloma. Heart not enlarged. Bony thorax intact. No new/acute findings.
[2020-11-01 11:52] VITALS: BP 131/67; PULSE 77; O2SAT 92
[2020-11-01] MEDS ORDERED: ROCEPHIN 1 Gm-D5w 50 ml Bag** 1 G/50 ML IVPB IV SCH (22:00)
--- NOTE | 2020-11-12 07:55 | SSS ---
DISCHARGE DIAGNOSIS: ACUTE EXACERBATION OF CHRONIC OBSTRUCTIVE PULMONARY DISEASE. HISTORY: The patient is a 65 year-old white male patient who presented to the emergency room with increasing shortness of breath. The patient has known chronic obstructive pulmonary disease. He reportedly said he was a patient of mine but in fact I have never seen this patient before but I have seen his family. The patient was apparently brought into the emergency room with shortness of breath worse with exertion and apparently noted wheezing at the time he came in. He has a 55-plus pack year history of smoking. The patient denied any fever, chills or sweats. PAST MEDICAL/SURGICAL HISTORY: His medical history is again significant for the chronic obstructive pulmonary disease. He uses an Albuterol inhaler and has nebulizer for this. History otherwise of gastroesophageal reflux disease and GI bleeding ulcer. HOME MEDICATIONS: Albuterol, Asmanex, Stiolto Respimat Inhaler 2 puffs a day. ALLERGIES: NKDA. PHYSICAL EXAMINATION: The patient's vital signs on admission showed his temperature to be 98.3F, pulse 92, respiratory rate 24 and blood pressure 113/81. O2 saturations noted to be 91%. HEENT: Normocephalic, atraumatic. Pupils equal round reactive to light. Extraocular movements intact. Oropharynx is pink and moist. NECK: Supple without lymphadenopathy, thyromegaly or JVD. CHEST: Essentially clear to auscultation on my evaluation. The emergency room doctor mentioned that he had wheezes throughout when he first came in. HEART: Regular rate and rhythm without murmurs, rubs or gallops. EXTREMITIES: Without cyanosis, clubbing or edema. NEUROLOGIC: The patient is alert and oriented x3 with no focal deficits noted. LAB DATA AND TESTS: The patient had laboratory studies performed showing hemoglobin 14.2, white count 9,500, PLT count 235,000. His sodium is slightly low at 133. Potassium is normal. His creatinine was 0.65. His D-dimer was positive at 700. The troponin was less than 0.012. Lactic acid was 1.5. He was negative on influenza, COVID and RSV. HOSPITAL COURSE: The patient was admitted to the [facility] and placed on IV steroids and nebulizer treatments. By the next morning he was essentially clear to auscultation and feeling back to his normal state of health. He did have x-rays and CT scan of the chest revealing positive D-dimer, showed negative for pulmonary embolus and incidental pulmonary emphysema was noted, atelectasis/scarring, old granulomatous disease but otherwise was clear of any active disease. The patient was felt to be ready for discharge home again and allowed to discharge on 11/01/2020. He is to continue his usual home medications and sleep evaluation by a document imaging specialist. He was offered an appointment to see me in the office in one week for follow up.
== END 2020-11-01 14:09 | disposition home or self-care (01) ==
LOC: ED 20:45 → ICU 11-01 02:54
PROVIDERS: ADMIT Family Medicine; ATTEND Family Medicine
DX: J44.1 Chronic obstructive pulmonary disease with (acute) exacerbation (principal); F17.200 Nicotine dependence, unspecified, uncomplicated; Z79.899 Other long term (current) drug therapy; Z20.828 Contact with and (suspected) exposure to other viral communicable diseases
CPT/HCPCS: 36000; 36415; 71045; 71260; 80053; 83605; 83735; 83880; 84484; 85025; 85379; 87040; 87400; 93005; 94640; 94762; 96365; 96374; 99285; G0378; U0003; J0696; J2930; J7609; A9270-GY

== ENCOUNTER 2020-11-07 01:50 | Emergency (ER) | payer MEDICARE, OTHER ==
--- NOTE | 2020-11-07 02:14 | ERPHSYRPT ---
- History of Present Illness Time Seen by Provider: 11/07/20 02:13 Source: patient, EMS Patient Subjective Stated Complaint: "I couldn't breath." Triage Nursing Assessment: patient reported acute onset dyspnea while at home. Reported using home oxygen without relief and taking three home nebulizer treatments. Denied chest pain, palpitations, dizziness. Pupils 3mm bilateral. Neck supple without JVD. Symmetrical chest expansion. heart tones S1/S2 regular rate and rhythm. Lungs with coarse wheezes throughout all talley. Peripheral pulses +3 bilateral. No note dependent edema. Physician History: This is a 65-year-old with history of COPD and worsening shortness of breath that began yesterday. Patient continues to smoke. He was recently seen in this emergency department and diagnosed with COPD exacerbation. He was discharged to home with antibiotics placed on oxygen therapy at home at approximately 2 to 3 L nasal cannula. Yesterday, his symptoms worsened. He was not sent home with any steroids. Patient called EMS service because of worsening shortness of breath but by the time he arrived to the emergency department he was breathing much better after nebulizer treatments. Timing/Duration: yesterday Activities at Onset: activity Severity of Dyspnea-Max: moderate Severity of Dyspnea-Current: moderate Possible Cause: frequent episodes Modifying Factors: Improves With: activity, coughing Associated Symptoms: cough, wheezing Allergies/Adverse Reactions: No Known Drug Allergies Allergy (Verified 11/07/20 01:54) Home Medications: Albuterol Sulfate [Proair Hfa] 2 puff IH UD 03/03/19 [History] Mometasone Furoate [Asmanex] 220 mcg IH BID 03/03/19 [History] Tiotropium Br/Olodaterol HCl [Stiolto Respimat Inhal [place]] 2 puff IH DAILY 03/03/19 [History] Hx Tetanus, Diphtheria Vaccination/Date Given: Yes Hx Influenza Vaccination/Date Given: No Hx Pneumococcal Vaccination/Date Given: No Travel Risk - International Travel Have you traveled outside of the country in past 3 weeks: No - Coronavirus Screening Are you exhibiting any of the following symptoms?: No Close contact with a COVID-19 positive Pt in past 14-21 Days: No - Vaccine Status Have you recieved a Covid-19 vaccination: Yes 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 - Vaccination Dates Date of 2cond Vaccination (if applicable): unknown Dates if Unknown: unknown - Review of Systems Constitutional: No Symptoms Eyes: No Symptoms Ears, Nose, & Throat: No Symptoms Respiratory: Cough, Dyspnea, Wheezing Cardiac: No Symptoms, No Chest Pain Abdominal/Gastrointestinal: No Symptoms Genitourinary Symptoms: No Symptoms Musculoskeletal: No Symptoms Skin: No Symptoms Neurological: No Symptoms Psychological: No Symptoms Endocrine: No Symptoms Hematologic/Lymphatic: No Symptoms Immunological/Allergic: No Symptoms All Other Systems: Reviewed and Negative - Past Medical History Pertinent Past Medical History: Yes Neurological History: No Pertinent History ENT History: No Pertinent History Cardiac History: No Pertinent History Respiratory History: Bronchitis, COPD, Pneumonia, Other Endocrine Medical History: No Pertinent History Musculoskeletal History: Arthritis GI Medical History: GERD, GI Bleed, Ulcer, Other History: No Pertinent History Psycho-Social History: Other Male Reproductive Disorders: No Pertinent History Other Medical History: few fractures - Past Surgical History Past Surgical History: Yes Neuro Surgical History: No Pertinent History Cardiac: No Pertinent History Respiratory: No Pertinent History Gastrointestinal: No Pertinent History Genitourinary: No Pertinent History Musculoskeletal: No Pertinent History Male Surgical History: No Pertinent History Other Surgical History: Had Surgery on bleeding Ulcer - Social History Smoking Status: Current every day smoker How long have you smoked: 55 years Exposure to second hand smoke: No Alcohol Use: Chronic (daily throughout the day including work time) Drug Use: none Patient Lives Alone: No - Nursing Vital Signs Nursing Vital Signs: Initial Vital Signs Temperature 98.8 F 11/07/20 01:50 Pulse Rate 90 11/07/20 01:50 Respiratory Rate 22 11/07/20 01:50 Blood Pressure 154/86 11/07/20 01:50 O2 Sat by Pulse Oximetry 93 L 11/07/20 01:50 Pain Scale Pain Intensity 0 - Physical Exam General Appearance: mild distress, alert, anxiety Eye Exam: PERRL/EOMI, eyes nml inspection Ears, Nose, Throat Exam: hearing grossly normal, normal ENT inspection, normal pharynx Neck Exam: normal inspection, non-tender, supple, full range of motion Respiratory Exam: wheezing, No chest tenderness, No respiratory distress (Mild) Cardiovascular/Chest Exam: normal heart sounds, regular rate/rhythm, normal peripheral pulses Abdominal/Gastrointestinal Exam: soft, normal bowel sounds, No tenderness Rectal Exam: not done Extremity Exam: non-tender, normal range of motion, normal inspection Neurologic Exam: alert, 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, cooperative, counter intelligence technician II-XII nml as tested, normal mood/affect, nml cerebellar function, nml station & gait, sensation nml Skin Exam: normal color, warm, dry Lymphatic Exam: No adenopathy SpO2 Interpretation: borderline oxygenation SpO2: 93 O2 Delivery: Nasal Cannula - Course Nursing assessment & vital signs reviewed: Yes EKG Interpreted by Me: RATE (82), Sinus Rhythm, Left [place] Deviation, NORMAL INTERVALS, NORMAL QRS, NORMAL ST-T, Other (No acute ischemic changes on today's EKG. There is resolution of prior borderline T wave abnormalities on today's EKG when compared to EKG dated 11/01/2020) Ordered Tests: Active Orders 24 hr Category Date Time Status EKG-ER Only STAT Care 11/07/20 02:28 Active IV Insertion STAT Care 11/07/20 02:28 Active Pulse Oximetry (ED) STAT Care 11/07/20 02:28 Active CHEST 1 VIEW (PORTABLE) Stat Exams 11/07/20 02:29 Taken BLOOD CULTURE Stat Lab 11/07/20 02:47 Received CBC W DIFF Stat Lab 11/07/20 02:47 Completed CMP Stat Lab 11/07/20 02:47 Completed Lactic Acid Stat Lab 11/07/20 02:43 Completed NT PRO BNP Stat Lab 11/07/20 02:47 Completed TROPONIN Q3H Lab 11/07/20 02:47 Completed TROPONIN Q3H Lab 11/07/20 05:30 Ordered TROPONIN Q3H Lab 11/07/20 08:30 Ordered TROPONIN Q3H Lab 11/07/20 11:30 Ordered TROPONIN Q3H Lab 11/07/20 14:30 Ordered Medication Summary Discontinued Medications Generic Name Dose Route Start Last Admin Trade Name Erin PRN Reason Stop Dose Admin Methylprednisolone Sodium Succinate 125 mg 11/07/20 02:28 11/07/20 03:01 Solu-Medrol 125 Mg IV 11/07/20 02:29 125 mg STAT ONE Administration Methylprednisolone Sodium Succinate Confirm 11/07/20 03:01 Solu-Medrol 125 Mg Administered 11/07/20 03:02 Dose 125 mg .ROUTE .STK-MED ONE Lab/Rad Data: Laboratory Result Diagrams 11/07/20 02:47 11/07/20 02:47 Laboratory Results 11/07/20 11/07/20 11/07/20 Range/Units 02:47 02:47 02:47 WBC 9.2 (4.0-10.5) K/mm3 RBC 4.67 (4.1-5.6) M/mm3 Hgb 14.1 (12.5-18.0) gm/dl Hct 44.5 (42-50) % MCV 95.3 (78-100) fl MCH 30.2 (26-32) pg MCHC 31.7 L (32-36) g/dl RDW 15.1 H (11.5-14.0) % Plt Count 221 (150-450) K/mm3 MPV 9.3 (7.5-11.0) fl Gran % 65.7 (36.0-66.0) % Eos # (Auto) 0.23 (0-0.5) Absolute Lymphs (auto) 2.08 (1.0-4.6) Absolute Monos (auto) 0.81 (0.0-1.3) Lymphocytes % 22.6 L (24.0-44.0) % Monocytes % 8.8 (0.0-12.0) % Eosinophils % 2.5 (0.00-5.0) % Basophils % 0.4 (0.0-0.4) % Absolute Granulocytes 6.04 (1.4-6.9) Basophils # 0.04 (0-0.4) Sodium 134 L (137-145) mmol/L Potassium 3.9 (3.5-5.1) mmol/L Chloride 98 (98-107) mmol/L Carbon Dioxide 28 (22-30) mmol/L Anion Gap 11.8 (5-15) MEQ/L BUN 9 (9-20) mg/dL Creatinine 0.64 L (0.66-1.25) mg/dL Estimated GFR > 60.0 ML/MIN Glucose 86 (74-106) mg/dL Lactic Acid (0.4-2.0) Calcium 8.7 (8.4-10.2) mg/dL Total Bilirubin 0.40 (0.2-1.3) mg/dL AST 30 (17-59) U/L ALT 19 (0-50) U/L Alkaline Phosphatase 52 (38-126) U/L Troponin I < 0.012 (0.000-0.034) ng/mL NT-Pro-B Natriuret Pep 36.4 (0-900) pg/mL Serum Total Protein 7.0 (6.3-8.2) g/dL Albumin 4.3 (3.5-5.0) g/dL 11/07/20 Range/Units 02:43 WBC (4.0-10.5) K/mm3 RBC (4.1-5.6) M/mm3 Hgb (12.5-18.0) gm/dl Hct (42-50) % MCV (78-100) fl MCH (26-32) pg MCHC (32-36) g/dl RDW (11.5-14.0) % Plt Count (150-450) K/mm3 MPV (7.5-11.0) fl Gran % (36.0-66.0) % Eos # (Auto) (0-0.5) Absolute Lymphs (auto) (1.0-4.6) Absolute Monos (auto) (0.0-1.3) Lymphocytes % (24.0-44.0) % Monocytes % (0.0-12.0) % Eosinophils % (0.00-5.0) % Basophils % (0.0-0.4) % Absolute Granulocytes (1.4-6.9) Basophils # (0-0.4) Sodium (137-145) mmol/L Potassium (3.5-5.1) mmol/L Chloride (98-107) mmol/L Carbon Dioxide (22-30) mmol/L Anion Gap (5-15) MEQ/L BUN (9-20) mg/dL Creatinine (0.66-1.25) mg/dL Estimated GFR ML/MIN Glucose (74-106) mg/dL Lactic Acid 1.1 (0.4-2.0) Calcium (8.4-10.2) mg/dL Total Bilirubin (0.2-1.3) mg/dL AST (17-59) U/L ALT (0-50) U/L Alkaline Phosphatase (38-126) U/L Troponin I (0.000-0.034) ng/mL NT-Pro-B Natriuret Pep (0-900) pg/mL Serum Total Protein (6.3-8.2) g/dL Albumin (3.5-5.0) g/dL - Progress Progress: improved, re-examined Air Movement: fair Progress Note: 11/07/20 05:24 Chest x-ray shows chronic COPD changes. There is no acute cardiopulmonary process Blood Culture(s) Obtained: Yes Antibiotics given: No Counseled pt/family regarding: lab results, diagnosis, need for follow-up, rad results - Departure Departure Disposition: Home Clinical Impression: COPD exacerbation Condition: Stable Critical Care Time: No Referrals: MITZY LOOMIS [Primary Care Provider] - Instructions: Chronic Obstructive Pulmonary Disease Additional Instructions: Stop smoking. Use your medication as prescribed. Follow-up with your primary care physician for further management. Prescriptions: Prednisone 10 mg [Deltasone 10 mg] 10 mg PO TID #12 tablet
[2020-11-07] MEDS ORDERED: solu-MEDROL 125 MG IV ONE (02:28)
[2020-11-07 02:51] LABS: Absolute Neutrophil Ct (ANC) 6.04 (1.4-6.9); BASOPHIL % 0.4 % (0.0-0.4); Basophil (Absolute #) 0.04 (0-0.4); Eosinophil % 2.5 % (0.00-5.0); Eosinophil (Absolute #) 0.23 (0-0.5); Hematocrit 44.5 % (42-50); Hemoglobin 14.1 gm/dl (12.5-18.0); Lymphocyte (Absolute #) 2.08 (1.0-4.6); Lymphocytes % 22.6 % (24.0-44.0); Mean Cell Volume 95.3 fl (78-100); Mean Corpuscular Hemoglobin 30.2 pg (26-32); Mean Corpuscular Hgb Concent. 31.7 g/dl (32-36); Mean Platelet Volume 9.3 fl (7.5-11.0); Monocyte (Absolute #) 0.81 (0.0-1.3); Monocytes % 8.8 % (0.0-12.0); Neutrophil % 65.7 % (36.0-66.0); Platelet Count 221 K/mm3 (150-450); Red Blood Count 4.67 M/mm3 (4.1-5.6); Red Cell Distribution Width 15.1 % (11.5-14.0); White Blood Count 9.2 K/mm3 (4.0-10.5)
[2020-11-07] MEDS ORDERED: solu-MEDROL 125 MG ONE (03:01)
[2020-11-07 03:10] LABS: ALBUMIN 4.3 g/dL (3.5-5.0); ALKALINE PHOSPHATASE 52 U/L (38-126); ANION GAP 11.8 MEQ/L (5-15); BLOOD UREA NITROGEN 9 mg/dL (9-20); CHLORIDE 98 mmol/L (98-107); Calcium 8.7 mg/dL (8.4-10.2); Carbon Dioxide 28 mmol/L (22-30); Creatinine 1 0.64 mg/dL (0.66-1.25); EST GLOMERULAR FILTRATION RATE > 60.0 ML/MIN; Glucose 86 mg/dL (74-106); NT PRO BNP 36.4 pg/mL (0-900); Potassium 3.9 mmol/L (3.5-5.1); SGOT/AST 30 U/L (17-59); SGPT/ALT 19 U/L (0-50); SODIUM 134 mmol/L (137-145)
[2020-11-07 05:57] VITALS: PULSE 84
[2020-11-07 06:02] VITALS: BP 113/71; O2SAT 92
--- NOTE | 2020-11-07 07:47 | XRAY ---
Indication: Short of breath. Comparison: October 31, 2020. Portable chest remains clear with incidental COPD and tiny right base calcified granuloma. Heart not enlarged. No new/acute findings.
== END 2020-11-07 06:00 | disposition home or self-care (01) ==
LOC: ED 01:50
DX: J44.1 Chronic obstructive pulmonary disease with (acute) exacerbation (principal); R05 Cough; R06.2 Wheezing; Z79.899 Other long term (current) drug therapy
CPT/HCPCS: 36000; 36415; 71045; 80053; 83605; 83880; 84484; 85025; 87040; 93005; 94760; 96374; 99284; J2930

== ENCOUNTER 2020-11-16 05:02 | Emergency (ER) | payer MEDICARE, OTHER ==
[2020-11-16] MEDS ORDERED: MORPHINE SULFATE 2 MG INJ IV ONE (05:18)
[2020-11-16] MEDS ORDERED: solu-MEDROL IV ONE (05:21)
[2020-11-16] MEDS ORDERED: MORPHINE SULFATE 2 MG INJ ONE (05:27)
[2020-11-16] MEDS ORDERED: solu-MEDROL ONE (05:27)
[2020-11-16] MEDS ORDERED: Sodium Chloride 0.9% 1000 ML 1,000 ML ONE (05:27)
--- NOTE | 2020-11-16 05:27 | ERPHSYRPT ---
- History of Present Illness Source: patient Exam Limitations: no limitations Timing/Duration: today, improved Activities at Onset: sleep Severity of Dyspnea-Max: severe Severity of Dyspnea-Current: moderate Possible Cause: occasional episodes Modifying Factors: Improves With: albuterol inhaler, albuterol nebulizer Associated Symptoms: cough, chest pain/discomfort, wheezing Hx Tetanus, Diphtheria Vaccination/Date Given: Yes Hx Influenza Vaccination/Date Given: No Hx Pneumococcal Vaccination/Date Given: No <KEELY WILD - Last Filed: 11/16/20 06:38> <CHRISTA DOMINOG - Last Filed: 11/16/20 08:52> - History of Present Illness Time Seen by Provider: 11/16/20 05:22 Physician History: Patient is a 65-year-old male who has a longstanding history of COPD. He still smokes 2 to 3 packs/day. Is also a heavy drinker. He this morning used 3 nebulizer treatments very quickly and developed some chest pain. He called an ambulance to come to the ER. At the time of exam he has no pain. He had been pain-free for 1 hour prior to arrival. 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 - Vaccination Dates Date of 2cond Vaccination (if applicable): unknown Dates if Unknown: unknown <KEELY WILD - Last Filed: 11/16/20 06:38> - Review of Systems Constitutional: No Fever, No Chills Eyes: No Symptoms Ears, Nose, & Throat: No Symptoms Respiratory: Cough, Dyspnea, Dyspnea on Exertion (ROMERO) Cardiac: No Chest Pain, No Edema, No Syncope Abdominal/Gastrointestinal: No Abdominal Pain, No Nausea, No Vomiting, No Diarrhea Genitourinary Symptoms: No Dysuria Musculoskeletal: No Back Pain, No Neck Pain Skin: No Rash Neurological: No Dizziness, No Focal Weakness, No Sensory Changes Psychological: No Symptoms Endocrine: No Symptoms All Other Systems: Reviewed and Negative <KEELY WILD Filed: 11/16/20 06:38> - Past Medical History Pertinent Past Medical History: Yes Neurological History: No Pertinent History ENT History: No Pertinent History Cardiac History: No Pertinent History Respiratory History: Bronchitis, COPD, Pneumonia, Other Endocrine Medical History: No Pertinent History Musculoskeletal History: Arthritis GI Medical History: GERD, GI Bleed, Ulcer, Other History: No Pertinent History Psycho-Social History: Other Male Reproductive Disorders: No Pertinent History Other Medical History: few fractures - Past Surgical History Past Surgical History: Yes Neuro Surgical History: No Pertinent History Cardiac: No Pertinent History Respiratory: No Pertinent History Gastrointestinal: No Pertinent History Genitourinary: No Pertinent History Musculoskeletal: No Pertinent History Male Surgical History: No Pertinent History Other Surgical History: Had Surgery on bleeding Ulcer - Social History Smoking Status: Current every day smoker How long have you smoked: 55 years Exposure to second hand smoke: No Alcohol Use: Chronic (daily throughout the day including work time) Drug Use: none Patient Lives Alone: No <KEELY WILD Filed: 11/16/20 06:38> - Physical Exam General Appearance: moderate distress, alert Eye Exam: PERRL/EOMI Ears, Nose, Throat Exam: hearing grossly normal, normal ENT inspection Neck Exam: normal inspection, supple Respiratory Exam: diminished breath sounds, crackles/rales, rhonchi, wheezing Cardiovascular/Chest Exam: normal heart sounds, regular rate/rhythm Abdominal/Gastrointestinal Exam: soft, No tenderness, No distention, No mass Extremity Exam: non-tender, normal range of motion, normal inspection, no calf tenderness, no pedal edema Peripheral Pulses Exam: carotid (R): 2+, carotid (L): 2+ Neurologic Exam: alert, 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, cooperative, clinical account manager II-XII nml as tested, sensation nml, No motor deficits Skin Exam: normal color, warm, No dry SpO2 Interpretation: hypoxic, O2 applied SpO2: 96 O2 Delivery: Nasal Cannula <KEELY WILD Filed: 11/16/20 06:38> - Nursing Vital Signs Nursing Vital Signs: Initial Vital Signs Pulse Rate 83 11/16/20 05:04 Respiratory Rate 22 11/16/20 05:04 Blood Pressure 158/91 11/16/20 05:04 O2 Sat by Pulse Oximetry 95 11/16/20 05:04 Pain Scale Pain Intensity 0 - Course EKG Interpreted by Me: RATE (82), Sinus Rhythm, NORMAL AXIS, NORMAL INTERVALS, NORMAL QRS - Radiology Exams Chest X-ray Interpretation: Interpreted by me, Other <KEELY WILD - Last Filed: 11/16/20 06:38> Ordered Tests: Active Orders 24 hr Category Date Time Status Family Services Assistant STAT Care 11/16/20 05:19 Active EKG-ER Only STAT Care 11/16/20 05:18 Active IV Insertion STAT Care 11/16/20 05:18 Active Oxygen-ED Only Nasal Cannula 3 lpm Care 11/16/20 05:18 Active CHEST 1 VIEW (PORTABLE) Stat Exams 11/16/20 05:19 Taken AMYLASE Stat Lab 11/16/20 05:42 Completed CBC W DIFF Stat Lab 11/16/20 05:42 Completed CMP Stat Lab 11/16/20 05:42 Completed D-DIMER QUANTITATIVE Stat Lab 11/16/20 05:42 Completed LIPASE Stat Lab 11/16/20 05:42 Completed Lactic Acid Stat Lab 11/16/20 05:45 Completed MAGNESIUM Stat Lab 11/16/20 05:42 Completed NT PRO BNP Stat Lab 11/16/20 05:42 Completed PROTIME WITH INR Stat Lab 11/16/20 05:42 Completed TROPONIN Q3H Lab 11/16/20 05:42 Completed TROPONIN Q3H Lab 11/16/20 07:40 Completed TROPONIN Q3H Lab 11/16/20 11:30 Ordered TROPONIN Q3H Lab 11/16/20 14:30 Ordered TROPONIN Q3H Lab 11/16/20 17:30 Ordered UA W/RFX UR CULTURE Stat Lab 11/16/20 06:55 Completed Medication Summary Generic Name Dose Route Start Last Admin Trade Name Freq PRN Reason Stop Dose Admin Sodium Chloride 1,000 mls @ 100 mls/hr 11/16/20 05:30 11/16/20 05:35 Sodium Chloride 0.9% 1000 Ml IV 12/16/20 05:29 100 mls/hr .Q10H ALYSSA Administration Discontinued Medications Generic Name Dose Route Start Last Admin Trade Name Freq PRN Reason Stop Dose Admin Methylprednisolone Sodium Succinate 125 mg 11/16/20 05:21 11/16/20 05:29 Solu-Medrol 125 Mg IV 11/16/20 05:22 125 mg STAT ONE Administration Methylprednisolone Sodium Succinate Confirm 11/16/20 05:27 Solu-Medrol 125 Mg Administered 11/16/20 05:28 Dose 125 mg .ROUTE .STK-MED ONE Morphine Sulfate 2 mg 11/16/20 05:18 11/16/20 06:42 Morphine Sulfate 2 Mg Inj IV 11/16/20 05:19 Not Given STAT ONE Morphine Sulfate Confirm 11/16/20 05:27 Morphine Sulfate 2 Mg Inj Administered 11/16/20 05:28 Dose 2 mg .ROUTE .STK-MED ONE Lab/Rad Data: Laboratory Result Diagrams 11/16/20 05:42 11/16/20 05:42 Laboratory Results 11/16/20 11/16/20 11/16/20 Range/Units 07:40 06:55 05:45 WBC (4.0-10.5) K/mm3 RBC (4.1-5.6) M/mm3 Hgb (12.5-18.0) gm/dl Hct (42-50) % MCV (78-100) fl MCH (26-32) pg MCHC (32-36) g/dl RDW (11.5-14.0) % Plt Count (150-450) K/mm3 MPV (7.5-11.0) fl Gran % (36.0-66.0) % Eos # (Auto) (0-0.5) Absolute Lymphs (auto) (1.0-4.6) Absolute Monos (auto) (0.0-1.3) Lymphocytes % (24.0-44.0) % Monocytes % (0.0-12.0) % Eosinophils % (0.00-5.0) % Basophils % (0.0-0.4) % Absolute Granulocytes (1.4-6.9) Basophils # (0-0.4) PT (9.4-12.5) SECONDS INR (0.8-3.0) D-Dimer (215-500) ng/mL Sodium (137-145) mmol/L Potassium (3.5-5.1) mmol/L Chloride (98-107) mmol/L Carbon Dioxide (22-30) mmol/L Anion Gap (5-15) MEQ/L BUN (9-20) mg/dL Creatinine (0.66-1.25) mg/dL Estimated GFR ML/MIN Glucose (74-106) mg/dL Lactic Acid 1.0 (0.4-2.0) Calcium (8.4-10.2) mg/dL Magnesium (1.6-2.3) mg/dL Total Bilirubin (0.2-1.3) mg/dL AST (17-59) U/L ALT (0-50) U/L Alkaline Phosphatase (38-126) U/L Troponin I 0.048 H* (0.000-0.034) ng/mL NT-Pro-B Natriuret Pep (0-900) pg/mL Serum Total Protein (6.3-8.2) g/dL Albumin (3.5-5.0) g/dL Amylase (30-110) U/L Lipase (23-300) U/L Urine Color STRAW (YELLOW) Urine Appearance CLEAR (CLEAR) Urine pH 6.0 (5-6) Ur Specific Willis 1.006 (1.005-1.025) Urine Protein NEGATIVE (Negative) Urine Ketones NEGATIVE (NEGATIVE) Urine Blood NEGATIVE (0-5) Luther/ul Urine Nitrite NEGATIVE (NEGATIVE) Urine Bilirubin NEGATIVE (NEGATIVE) Urine Urobilinogen NEGATIVE (0-1) mg/dL Ur Leukocyte Esterase NEGATIVE (NEGATIVE) Urine WBC (Auto) NONE (0-5) /HPF Urine RBC (Auto) NONE (0-2) /HPF U Epithel Cells (Auto) NONE (FEW) /HPF Urine Bacteria (Auto) NONE (NEGATIVE) /HPF Urine Culture Reflexed NO (NO) Urine Glucose NEGATIVE (NEGATIVE) mg/dL 11/16/20 11/16/20 11/16/20 Range/Units 05:42 05:42 05:42 WBC (4.0-10.5) K/mm3 RBC (4.1-5.6) M/mm3 Hgb (12.5-18.0) gm/dl Hct (42-50) % MCV (78-100) fl MCH (26-32) pg MCHC (32-36) g/dl RDW (11.5-14.0) % Plt Count (150-450) K/mm3 MPV (7.5-11.0) fl Gran % (36.0-66.0) % Eos # (Auto) (0-0.5) Absolute Lymphs (auto) (1.0-4.6) Absolute Monos (auto) (0.0-1.3) Lymphocytes % (24.0-44.0) % Monocytes % (0.0-12.0) % Eosinophils % (0.00-5.0) % Basophils % (0.0-0.4) % Absolute Granulocytes (1.4-6.9) Basophils # (0-0.4) PT 9.8 (9.4-12.5) SECONDS INR 0.83 (0.8-3.0) D-Dimer 707 H* (215-500) ng/mL Sodium 136 L (137-145) mmol/L Potassium 4.5 (3.5-5.1) mmol/L Chloride 99 (98-107) mmol/L Carbon Dioxide 30 (22-30) mmol/L Anion Gap 11.2 (5-15) MEQ/L BUN 17 (9-20) mg/dL Creatinine 0.78 (0.66-1.25) mg/dL Estimated GFR > 60.0 ML/MIN Glucose 109 H (74-106) mg/dL Lactic Acid (0.4-2.0) Calcium 9.5 (8.4-10.2) mg/dL Magnesium 1.9 (1.6-2.3) mg/dL Total Bilirubin 0.20 (0.2-1.3) mg/dL AST 31 (17-59) U/L ALT 18 (0-50) U/L Alkaline Phosphatase 51 (38-126) U/L Troponin I 0.044 H* (0.000-0.034) ng/mL NT-Pro-B Natriuret Pep 132 (0-900) pg/mL Serum Total Protein 6.8 (6.3-8.2) g/dL Albumin 4.2 (3.5-5.0) g/dL Amylase 113 H (30-110) U/L Lipase 209 (23-300) U/L Urine Color (YELLOW) Urine Appearance (CLEAR) Urine pH (5-6) Ur Specific Willis (1.005-1.025) Urine Protein (Negative) Urine Ketones (NEGATIVE) Urine Blood (0-5) Luther/ul Urine Nitrite (NEGATIVE) Urine Bilirubin (NEGATIVE) Urine Urobilinogen (0-1) mg/dL Ur Leukocyte Esterase (NEGATIVE) Urine WBC (Auto) (0-5) /HPF Urine RBC (Auto) (0-2) /HPF U Epithel Cells (Auto) (FEW) /HPF Urine Bacteria (Auto) (NEGATIVE) /HPF Urine Culture Reflexed (NO) Urine Glucose (NEGATIVE) mg/dL 11/16/20 Range/Units 05:42 WBC 14.4 H (4.0-10.5) K/mm3 RBC 4.39 (4.1-5.6) M/mm3 Hgb 13.3 (12.5-18.0) gm/dl Hct 41.7 L (42-50) % MCV 95.0 (78-100) fl MCH 30.3 (26-32) pg MCHC 31.9 L (32-36) g/dl RDW 16.0 H (11.5-14.0) % Plt Count 227 (150-450) K/mm3 MPV 8.9 (7.5-11.0) fl Gran % 81.9 H (36.0-66.0) % Eos # (Auto) 0.08 (0-0.5) Absolute Lymphs (auto) 1.61 (1.0-4.6) Absolute Monos (auto) 0.87 (0.0-1.3) Lymphocytes % 11.2 L (24.0-44.0) % Monocytes % 6.0 (0.0-12.0) % Eosinophils % 0.6 (0.00-5.0) % Basophils % 0.3 (0.0-0.4) % Absolute Granulocytes 11.79 H (1.4-6.9) Basophils # 0.04 (0-0.4) PT (9.4-12.5) SECONDS INR (0.8-3.0) D-Dimer (215-500) ng/mL Sodium (137-145) mmol/L Potassium (3.5-5.1) mmol/L Chloride (98-107) mmol/L Carbon Dioxide (22-30) mmol/L Anion Gap (5-15) MEQ/L BUN (9-20) mg/dL Creatinine (0.66-1.25) mg/dL Estimated GFR ML/MIN Glucose (74-106) mg/dL Lactic Acid (0.4-2.0) Calcium (8.4-10.2) mg/dL Magnesium (1.6-2.3) mg/dL Total Bilirubin (0.2-1.3) mg/dL AST (17-59) U/L ALT (0-50) U/L Alkaline Phosphatase (38-126) U/L Troponin I (0.000-0.034) ng/mL NT-Pro-B Natriuret Pep (0-900) pg/mL Serum Total Protein (6.3-8.2) g/dL Albumin (3.5-5.0) g/dL Amylase (30-110) U/L Lipase (23-300) U/L Urine Color (YELLOW) Urine Appearance (CLEAR) Urine pH (5-6) Ur Specific Willis (1.005-1.025) Urine Protein (Negative) Urine Ketones (NEGATIVE) Urine Blood (0-5) Luther/ul Urine Nitrite (NEGATIVE) Urine Bilirubin (NEGATIVE) Urine Urobilinogen (0-1) mg/dL Ur Leukocyte Esterase (NEGATIVE) Urine WBC (Auto) (0-5) /HPF Urine RBC (Auto) (0-2) /HPF U Epithel Cells (Auto) (FEW) /HPF Urine Bacteria (Auto) (NEGATIVE) /HPF Urine Culture Reflexed (NO) Urine Glucose (NEGATIVE) mg/dL - Progress Progress: improved, re-examined Air Movement: good Blood Culture(s) Obtained: No Antibiotics given: No Counseled pt/family regarding: lab results, diagnosis, need for follow-up, rad results <CHRISTA DOMINGO - Last Filed: 11/16/20 08:52> - Progress Progress Note: 11/16/20 08:49 Medical decision making: This patient was reexamined and he does not have chest pain. He was told that he had an elevated troponin level. It was slightly over our high normal value. We repeated 3-hour troponin level and it had slightly increased to 0.048. The patient continues to have no chest pain. He is not short of breath. Patient does not want to be admitted or transferred. I advised that he should be transferred to where there is a telephone service representative. He refuses. I discussed the risk of worsening condition, heart attack and . Patient understands and was able to verbalize my concerns for him. He does not want to be admitted or transferred into any hospital at this time. He stated he has too much to do at home. He will sign an AMA form. Again, we advised him of his risks of going home and the benefits of being admitted into the hospital facility that has cardiology readily available. (CHRISTA DOMINGO) <KEELY WILD - Last Filed: 11/16/20 06:38> - Departure Departure Disposition: AMA Critical Care Time: No <CHRISTA DOMINGO - Last Filed: 11/16/20 08:52> - Departure Clinical Impression: Chest pain, Elevated troponin, Elevated d-dimer Condition: Stable Referrals: MITZY LOOMIS [Primary Care Provider] - Additional Instructions: Return to the emergency department if symptoms recur. Follow-up with your telephone service representative and primary care physician for further management. Take your medications as prescribed
[2020-11-16] MEDS ORDERED: Sodium Chloride 0.9% 1000 ML 1,000 ML IV SCH (05:30)
[2020-11-16 05:39] LABS: Absolute Neutrophil Ct (ANC) 11.79 (1.4-6.9); BASOPHIL % 0.3 % (0.0-0.4); Basophil (Absolute #) 0.04 (0-0.4); Eosinophil % 0.6 % (0.00-5.0); Eosinophil (Absolute #) 0.08 (0-0.5); Hematocrit 41.7 % (42-50); Hemoglobin 13.3 gm/dl (12.5-18.0); Lymphocyte (Absolute #) 1.61 (1.0-4.6); Lymphocytes % 11.2 % (24.0-44.0); Mean Corpuscular Hemoglobin 30.3 pg (26-32); Mean Corpuscular Hgb Concent. 31.9 g/dl (32-36); Mean Platelet Volume 8.9 fl (7.5-11.0); Monocyte (Absolute #) 0.87 (0.0-1.3); Neutrophil % 81.9 % (36.0-66.0); Platelet Count 227 K/mm3 (150-450); Red Blood Count 4.39 M/mm3 (4.1-5.6); White Blood Count 14.4 K/mm3 (4.0-10.5)
[2020-11-16 06:01] LABS: INR 0.83 (0.8-3.0); PROTIME 9.8 SECONDS (9.4-12.5)
[2020-11-16 06:20] LABS: ALBUMIN 4.2 g/dL (3.5-5.0); ALKALINE PHOSPHATASE 51 U/L (38-126); AMYLASE 113 U/L (30-110); ANION GAP 11.2 MEQ/L (5-15); BLOOD UREA NITROGEN 17 mg/dL (9-20); CHLORIDE 99 mmol/L (98-107); Calcium 9.5 mg/dL (8.4-10.2); Carbon Dioxide 30 mmol/L (22-30); Creatinine 1 0.78 mg/dL (0.66-1.25); EST GLOMERULAR FILTRATION RATE > 60.0 ML/MIN; Glucose 109 mg/dL (74-106); LIPASE 209 U/L (23-300); MAGNESIUM 1.9 mg/dL (1.6-2.3); NT PRO BNP 132 pg/mL (0-900); Potassium 4.5 mmol/L (3.5-5.1); SGOT/AST 31 U/L (17-59); SGPT/ALT 18 U/L (0-50); SODIUM 136 mmol/L (137-145); Total Protein 6.8 g/dL (6.3-8.2)
[2020-11-16 07:01] LABS: Appearance CLEAR (CLEAR); Bilirubin NEGATIVE (NEGATIVE); Blood NEGATIVE Ery/ul (0-5); Glucose NEGATIVE (NEGATIVE); Ketones NEGATIVE (NEGATIVE); Leukocyte Esterase NEGATIVE (NEGATIVE); Nitrite NEGATIVE (NEGATIVE); Protein,Urine Dip NEGATIVE (Negative); Specific Gravity 1.006 (1.005-1.025); Urobilinogen NEGATIVE mg/dL (0-1)
[2020-11-16 08:53] VITALS: BP 167/93; PULSE 86; O2SAT 96
--- NOTE | 2020-11-16 09:26 | XRAY ---
Indication: Chest pain and short of breath. COPD. Comparison: November 07, 2020. Portable chest remains hyperinflated with chronic lung markings and right base calcified granuloma. Heart and mediastinal structures within normal limits. No new/acute findings.
== END 2020-11-16 09:00 | disposition left against medical advice (07) ==
LOC: ED 05:02
DX: R07.89 Other chest pain (principal); R77.8 Other specified abnormalities of plasma proteins; R79.1 Abnormal coagulation profile; Z79.899 Other long term (current) drug therapy
CPT/HCPCS: 36000; 36415; 71045; 80053; 81001; 82150; 83605; 83690; 83735; 83880; 84484; 85025; 85379; 85610; 93005; 93041; 96374; 99284; J2270; J2930

== ENCOUNTER 2020-11-18 01:57 | Observation (INO) | payer MEDICARE ==
[2020-11-18 02:55] LABS: Absolute Neutrophil Ct (ANC) 9.25 (1.4-6.9); BASOPHIL % 0.1 % (0.0-0.4); Basophil (Absolute #) 0.02 (0-0.4); Eosinophil % 0.7 % (0.00-5.0); Eosinophil (Absolute #) 0.09 (0-0.5); Hematocrit 41.6 % (42-50); Hemoglobin 13.3 gm/dl (12.5-18.0); Lymphocyte (Absolute #) 3.05 (1.0-4.6); Lymphocytes % 22.7 % (24.0-44.0); Mean Cell Volume 94.8 fl (78-100); Mean Corpuscular Hemoglobin 30.3 pg (26-32); Mean Platelet Volume 9.2 fl (7.5-11.0); Monocyte (Absolute #) 1.01 (0.0-1.3); Monocytes % 7.5 % (0.0-12.0); Platelet Count 234 K/mm3 (150-450); Red Blood Count 4.39 M/mm3 (4.1-5.6); Red Cell Distribution Width 16.3 % (11.5-14.0); White Blood Count 13.4 K/mm3 (4.0-10.5)
[2020-11-18 03:12] LABS: ALBUMIN 4.3 g/dL (3.5-5.0); ALKALINE PHOSPHATASE 55 U/L (38-126); ANION GAP 13.6 MEQ/L (5-15); BLOOD UREA NITROGEN 15 mg/dL (9-20); CHLORIDE 95 mmol/L (98-107); Calcium 9.5 mg/dL (8.4-10.2); Carbon Dioxide 32 mmol/L (22-30); Creatinine 1 0.82 mg/dL (0.66-1.25); EST GLOMERULAR FILTRATION RATE > 60.0 ML/MIN; Glucose 98 mg/dL (74-106); NT PRO BNP 235 pg/mL (0-900); Potassium 4.3 mmol/L (3.5-5.1); SGOT/AST 31 U/L (17-59); SGPT/ALT 19 U/L (0-50); SODIUM 136 mmol/L (137-145); Total Protein 7.1 g/dL (6.3-8.2)
--- NOTE | 2020-11-18 03:16 | ERPHSYRPT ---
- History of Present Illness Time Seen by Provider: 11/18/20 02:10 Source: patient Exam Limitations: no limitations Patient Subjective Stated Complaint: The patient called [facility] EMS with reports of shortness of breath and chest pain. The patient states that he has been more short of breath, especially starting in the afternoon of 11/17/20. The patient states that he called EMS because he began having a burning chest pain around [id number] tonight. Triage Nursing Assessment: The patient was brought in by [facility]. The patient is alert and oriented, able to answer questions. The patient is visually short of breath, with audible wheezes and a wet cough. The patient has wheezes throughout upon ascultation. The patient has also complained of a burning pain in his chest that began around 2200 tonight. Physician History: Patient is a 65-year-old male presents to our ED via EMS for evaluation of shortness of breath and chest pain. Shortness of breath started this afternoon. Shortness of breath has been constant. Patient describes chest pain as a burning sensation. Patient states the chest pain became significantly worse between 10:11 PM yesterday night. EMS administered aspirin nitro DuoNeb and Solu-Medrol. Patient felt somewhat better upon arrival. However patient still symptomatic. Audible wheezing observed. Patient has a wet cough. No syncope. No trauma. No fever. Symptoms are moderate in intensity. No specific worsening improving factors. Patient voices no other complaints or concerns at this time. Timing/Duration: yesterday Activities at Onset: none Severity of Dyspnea-Max: moderate Severity of Dyspnea-Current: mild Possible Cause: occasional episodes Modifying Factors: Improves With: albuterol inhaler Associated Symptoms: cough, wheezing, No constant, No anxiety, No dizziness, No muscle spasms hands, No tingling hands Allergies/Adverse Reactions: No Known Drug Allergies Allergy (Verified 11/18/20 02:21) Home Medications: Albuterol Sulfate [Proair Hfa] 2 puff IH UD 03/03/19 [History] Mometasone Furoate [Asmanex] 220 mcg IH BID 03/03/19 [History] Tiotropium Br/Olodaterol HCl [Stiolto Respimat Inhal [place]] 2 puff IH DAILY 03/03/19 [History] Hx Tetanus, Diphtheria Vaccination/Date Given: Yes (unknown) Hx Influenza Vaccination/Date Given: Yes (fall 2020) Hx Pneumococcal Vaccination/Date Given: Yes (unknown) Immunizations Up to Date: Yes Travel Risk - International Travel Have you traveled outside of the country in past 3 weeks: No - Coronavirus Screening Are you exhibiting any of the following symptoms?: No Close contact with a COVID-19 positive Pt in past 14-21 Days: No - Vaccine Status Have you recieved a Covid-19 vaccination: Yes Brand Advocate: Unknown - Vaccination Dates Dates if Unknown: unknown - Review of Systems Constitutional: No Symptoms, No Fever, No Chills Eyes: No Symptoms Ears, Nose, & Throat: No Symptoms Respiratory: No Symptoms, No Cough, No Dyspnea Cardiac: No Symptoms, No Chest Pain, No Edema, No Syncope Abdominal/Gastrointestinal: No Symptoms, No Abdominal Pain, No Nausea, No Vomiting, No Diarrhea Genitourinary Symptoms: No Symptoms, No Dysuria Musculoskeletal: No Symptoms, No Back Pain, No Neck Pain Skin: No Symptoms, No Rash Neurological: No Symptoms, No Dizziness, No Focal Weakness, No Sensory Changes Psychological: No Symptoms Endocrine: No Symptoms Hematologic/Lymphatic: No Symptoms Immunological/Allergic: No Symptoms All Other Systems: Reviewed and Negative - Past Medical History Pertinent Past Medical History: Yes Neurological History: No Pertinent History ENT History: No Pertinent History Cardiac History: No Pertinent History Respiratory History: Bronchitis, COPD, Pneumonia, Other Endocrine Medical History: No Pertinent History Musculoskeletal History: Arthritis GI Medical History: GERD, GI Bleed, Ulcer, Other History: No Pertinent History Psycho-Social History: Other Male Reproductive Disorders: No Pertinent History Other Medical History: few fractures - Past Surgical History Past Surgical History: Yes Neuro Surgical History: No Pertinent History Cardiac: No Pertinent History Respiratory: No Pertinent History Gastrointestinal: No Pertinent History Genitourinary: No Pertinent History Musculoskeletal: No Pertinent History Male Surgical History: No Pertinent History Other Surgical History: Had Surgery on bleeding Ulcer - Social History Smoking Status: Current every day smoker How long have you smoked: 55 years Exposure to second hand smoke: No Alcohol Use: Chronic (daily throughout the day including work time) Drug Use: none Patient Lives Alone: Yes (with son) - Nursing Vital Signs Nursing Vital Signs: Initial Vital Signs Temperature 97.1 F 11/18/20 01:58 Pulse Rate 80 11/18/20 01:58 Respiratory Rate 23 11/18/20 01:58 Blood Pressure 146/83 11/18/20 01:58 O2 Sat by Pulse Oximetry 96 11/18/20 01:58 Pain Scale Pain Intensity 0 - Physical Exam General Appearance: no apparent distress, alert Eye Exam: PERRL/EOMI Neck Exam: normal inspection, supple, No non-tender Respiratory Exam: airway intact, diminished breath sounds, accessory muscle use Cardiovascular/Chest Exam: normal heart sounds, regular rate/rhythm Abdominal/Gastrointestinal Exam: soft, No tenderness, No distention, No mass Extremity Exam: non-tender, normal range of motion, normal inspection, no calf tenderness, no pedal edema Neurologic Exam: alert, 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, 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 No consolidation or infiltrate. Osteopenia. Normal cardiac silhouette. Flattening of left diaphragm.) Ordered Tests: Active Orders 24 hr Category Date Time Status Stock Hanger STAT Care 11/18/20 02:17 Active EKG-ER Only STAT Care 11/18/20 02:16 Active IV Insertion STAT Care 11/18/20 02:16 Active Pulse Oximetry (ED) STAT Care 11/18/20 02:16 Active CHEST 1 VIEW (PORTABLE) Stat Exams 11/18/20 02:17 Taken BLOOD CULTURE Stat Lab 11/18/20 02:35 Received CBC W DIFF Stat Lab 11/18/20 02:35 Completed CMP Stat Lab 11/18/20 02:35 Completed D-DIMER QUANTITATIVE Urgent Lab 11/18/20 04:49 Completed MAGNESIUM Stat Lab 11/18/20 02:35 Completed NT PRO BNP Stat Lab 11/18/20 02:35 Completed TROPONIN Q3H Lab 11/18/20 02:35 Completed TROPONIN Q3H Lab 11/18/20 05:30 Completed TROPONIN Q3H Lab 11/18/20 08:30 Ordered TROPONIN Q3H Lab 11/18/20 11:30 Ordered TROPONIN Q3H Lab 11/18/20 14:30 Ordered UA W/RFX UR CULTURE Stat Lab 11/18/20 03:10 Completed Transfer Order Routine Transfer 11/18/20 Ordered Medication Summary Generic Name Dose Route Start Last Admin Trade Name Erin PRN Reason Stop Dose Admin Ceftriaxone Sodium/Dextrose 2 g in 50 mls @ 100 mls/hr 11/18/20 07:42 Rocephin 2 Gm-D5w 50ml Bag IV 11/18/20 08:11 STAT STA Azithromycin 500 mg in 250 mls @ 250 mls/hr 11/18/20 07:42 Zithromax 500 Mg/ 250 Ml Nacl Premix IV 11/18/20 08:41 STAT STA Lab/Rad Data: Laboratory Result Diagrams 11/18/20 02:35 11/18/20 02:35 Laboratory Results 11/18/20 11/18/20 11/18/20 Range/Units 06:07 05:30 04:49 WBC (4.0-10.5) K/mm3 RBC (4.1-5.6) M/mm3 Hgb (12.5-18.0) gm/dl Hct (42-50) % MCV (78-100) fl MCH (26-32) pg MCHC (32-36) g/dl RDW (11.5-14.0) % Plt Count (150-450) K/mm3 MPV (7.5-11.0) fl Gran % (36.0-66.0) % Eos # (Auto) (0-0.5) Absolute Lymphs (auto) (1.0-4.6) Absolute Monos (auto) (0.0-1.3) Lymphocytes % (24.0-44.0) % Monocytes % (0.0-12.0) % Eosinophils % (0.00-5.0) % Basophils % (0.0-0.4) % Absolute Granulocytes (1.4-6.9) Basophils # (0-0.4) D-Dimer 576 H* (215-500) ng/mL Sodium (137-145) mmol/L Potassium (3.5-5.1) mmol/L Chloride (98-107) mmol/L Carbon Dioxide (22-30) mmol/L Anion Gap (5-15) MEQ/L BUN (9-20) mg/dL Creatinine (0.66-1.25) mg/dL Estimated GFR ML/MIN Glucose (74-106) mg/dL Calcium (8.4-10.2) mg/dL Magnesium (1.6-2.3) mg/dL Total Bilirubin (0.2-1.3) mg/dL AST (17-59) U/L ALT (0-50) U/L Alkaline Phosphatase (38-126) U/L Troponin I 0.017 (0.000-0.034) ng/mL NT-Pro-B Natriuret Pep (0-900) pg/mL Serum Total Protein (6.3-8.2) g/dL Albumin (3.5-5.0) g/dL Urine Color (YELLOW) Urine Appearance (CLEAR) Urine pH (5-6) Ur Specific [place] (1.005-1.025) Urine Protein (Negative) Urine Ketones (NEGATIVE) Urine Blood (0-5) Luther/ul Urine Nitrite (NEGATIVE) Urine Bilirubin (NEGATIVE) Urine Urobilinogen (0-1) mg/dL Ur Leukocyte Esterase (NEGATIVE) Urine WBC (Auto) (0-5) /HPF Urine RBC (Auto) (0-2) /HPF U Epithel Cells (Auto) (FEW) /HPF Urine Bacteria (Auto) (NEGATIVE) /HPF Urine Culture Reflexed (NO) Urine Glucose (NEGATIVE) mg/dL SARS-CoV-2 (PCR) NEGATIVE (NEGATIVE) 11/18/20 11/18/20 11/18/20 Range/Units 03:10 02:35 02:35 WBC (4.0-10.5) K/mm3 RBC (4.1-5.6) M/mm3 Hgb (12.5-18.0) gm/dl Hct (42-50) % MCV (78-100) fl MCH (26-32) pg MCHC (32-36) g/dl RDW (11.5-14.0) % Plt Count (150-450) K/mm3 MPV (7.5-11.0) fl Gran % (36.0-66.0) % Eos # (Auto) (0-0.5) Absolute Lymphs (auto) (1.0-4.6) Absolute Monos (auto) (0.0-1.3) Lymphocytes % (24.0-44.0) % Monocytes % (0.0-12.0) % Eosinophils % (0.00-5.0) % Basophils % (0.0-0.4) % Absolute Granulocytes (1.4-6.9) Basophils # (0-0.4) D-Dimer (215-500) ng/mL Sodium 136 L (137-145) mmol/L Potassium 4.3 (3.5-5.1) mmol/L Chloride 95 L (98-107) mmol/L Carbon Dioxide 32 H (22-30) mmol/L Anion Gap 13.6 (5-15) MEQ/L BUN 15 (9-20) mg/dL Creatinine 0.82 (0.66-1.25) mg/dL Estimated GFR > 60.0 ML/MIN Glucose 98 (74-106) mg/dL Calcium 9.5 (8.4-10.2) mg/dL Magnesium 2.0 (1.6-2.3) mg/dL Total Bilirubin 0.30 (0.2-1.3) mg/dL AST 31 (17-59) U/L ALT 19 (0-50) U/L Alkaline Phosphatase 55 (38-126) U/L Troponin I 0.017 (0.000-0.034) ng/mL NT-Pro-B Natriuret Pep 235 (0-900) pg/mL Serum Total Protein 7.1 (6.3-8.2) g/dL Albumin 4.3 (3.5-5.0) g/dL Urine Color STRAW (YELLOW) Urine Appearance CLEAR (CLEAR) Urine pH 6.0 (5-6) Ur Specific [place] 1.003 (1.005-1.025) Urine Protein NEGATIVE (Negative) Urine Ketones NEGATIVE (NEGATIVE) Urine Blood NEGATIVE (0-5) Luther/ul Urine Nitrite NEGATIVE (NEGATIVE) Urine Bilirubin NEGATIVE (NEGATIVE) Urine Urobilinogen NEGATIVE (0-1) mg/dL Ur Leukocyte Esterase NEGATIVE (NEGATIVE) Urine WBC (Auto) NONE (0-5) /HPF Urine RBC (Auto) NONE (0-2) /HPF U Epithel Cells (Auto) NONE (FEW) /HPF Urine Bacteria (Auto) NONE (NEGATIVE) /HPF Urine Culture Reflexed NO (NO) Urine Glucose NEGATIVE (NEGATIVE) mg/dL SARS-CoV-2 (PCR) (NEGATIVE) 11/18/20 Range/Units 02:35 WBC 13.4 H (4.0-10.5) K/mm3 RBC 4.39 (4.1-5.6) M/mm3 Hgb 13.3 (12.5-18.0) gm/dl Hct 41.6 L (42-50) % MCV 94.8 (78-100) fl MCH 30.3 (26-32) pg MCHC 32.0 (32-36) g/dl RDW 16.3 H (11.5-14.0) % Plt Count 234 (150-450) K/mm3 MPV 9.2 (7.5-11.0) fl Gran % 69.0 H (36.0-66.0) % Eos # (Auto) 0.09 (0-0.5) Absolute Lymphs (auto) 3.05 (1.0-4.6) Absolute Monos (auto) 1.01 (0.0-1.3) Lymphocytes % 22.7 L (24.0-44.0) % Monocytes % 7.5 (0.0-12.0) % Eosinophils % 0.7 (0.00-5.0) % Basophils % 0.1 (0.0-0.4) % Absolute Granulocytes 9.25 H (1.4-6.9) Basophils # 0.02 (0-0.4) D-Dimer (215-500) ng/mL Sodium (137-145) mmol/L Potassium (3.5-5.1) mmol/L Chloride (98-107) mmol/L Carbon Dioxide (22-30) mmol/L Anion Gap (5-15) MEQ/L BUN (9-20) mg/dL Creatinine (0.66-1.25) mg/dL Estimated GFR ML/MIN Glucose (74-106) mg/dL Calcium (8.4-10.2) mg/dL Magnesium (1.6-2.3) mg/dL Total Bilirubin (0.2-1.3) mg/dL AST (17-59) U/L ALT (0-50) U/L Alkaline Phosphatase (38-126) U/L Troponin I (0.000-0.034) ng/mL NT-Pro-B Natriuret Pep (0-900) pg/mL Serum Total Protein (6.3-8.2) g/dL Albumin (3.5-5.0) g/dL Urine Color (YELLOW) Urine Appearance (CLEAR) Urine pH (5-6) Ur Specific [place] (1.005-1.025) Urine Protein (Negative) Urine Ketones (NEGATIVE) Urine Blood (0-5) Luther/ul Urine Nitrite (NEGATIVE) Urine Bilirubin (NEGATIVE) Urine Urobilinogen (0-1) mg/dL Ur Leukocyte Esterase (NEGATIVE) Urine WBC (Auto) (0-5) /HPF Urine RBC (Auto) (0-2) /HPF U Epithel Cells (Auto) (FEW) /HPF Urine Bacteria (Auto) (NEGATIVE) /HPF Urine Culture Reflexed (NO) Urine Glucose (NEGATIVE) mg/dL SARS-CoV-2 (PCR) (NEGATIVE) - Progress Progress: improved Air Movement: good Progress Note: D-dimer is elevated however based on age-adjusted D-dimer D-dimer is considered negative. A positive D-dimer for our patient would be 670. Case discussed with Dr. Sagastume who accepts admission to observation to Dr. Guerra's behalf. Plan of care discussed with patient. He agrees to admission at [facility] for further evaluation and treatment. Patient reassessed. He feels much better. Residual wheezing observed. We will admit for further evaluation and treatment. IV antibiotics ordered. Troponins are stable at 0.017. 11/18/20 07:47 Blood Culture(s) Obtained: Yes Antibiotics given: No Discussed with DrHallie: Pedro Will see patient in: hospital (observation) Counseled pt/family regarding: lab results, diagnosis, rad results - Departure Departure Disposition: Observation Clinical Impression: SOB (shortness of breath), COPD exacerbation, Wheezing Condition: Stable Critical Care Time: No Referrals: MITZY GUERRA [Primary Care Provider] - Instructions: Chronic Obstructive Pulmonary Disease
[2020-11-18 03:54] LABS: Appearance CLEAR (CLEAR); Bilirubin NEGATIVE (NEGATIVE); Blood NEGATIVE Ery/ul (0-5); Glucose NEGATIVE (NEGATIVE); Ketones NEGATIVE (NEGATIVE); Leukocyte Esterase NEGATIVE (NEGATIVE); Nitrite NEGATIVE (NEGATIVE); Protein,Urine Dip NEGATIVE (Negative); Specific Gravity 1.003 (1.005-1.025); Urobilinogen NEGATIVE mg/dL (0-1)
[2020-11-18] MEDS ORDERED: ROCEPHIN 2 Gm-D5w 50ML BAG** 2 G/50 ML IVPB IV STA (07:42)
[2020-11-18] MEDS ORDERED: Zithromax 500 MG/ 250 ML NaCl Premix 500 MG/250 ML IVPB IV STA (07:42)
[2020-11-18] MEDS ORDERED: ROCEPHIN 2 Gm-D5w 50ML BAG** 2 G/50 ML IVPB IV ONE (07:52)
--- NOTE | 2020-11-18 09:02 | XRAY ---
Indication: Short of breath and chest pain. COPD. Comparison: November 16, 2020. Portable chest remains hyperinflated with right base calcified granuloma. No focal infiltrate, consolidation, or large effusion. Heart is not enlarged. Bony thorax intact again with mild osteopenia and degenerative changes. Impression: Continued nonacute chest with chronic features.
[2020-11-18] MEDS ORDERED: PROVENTIL 2.5 MG/3 ML NEB IH PRN (09:07)
[2020-11-18] MEDS ORDERED: Spiriva 18 Mcg/Cap Inhaler IH SCH (10:00)
[2020-11-18] MEDS ORDERED: Ativan 1 MG PO PRN (10:00)
[2020-11-18] MEDS: Nicoderm CQ 21 MG TOP SCH (10:51)
[2020-11-18] MEDS: Protonix 40MG Tablet PO SCH (10:51)
[2020-11-18] MEDS ORDERED: PROVENTIL 2.5 MG/3 ML NEB IH SCH (11:00)
[2020-11-18] MEDS ORDERED: solu-MEDROL IV SCH ×3 (12:00→18:00)
[2020-11-18] MEDS ORDERED: Sterile H2O 10 ml IJ ONE (12:34)
[2020-11-18] MEDS ORDERED: solu-MEDROL ONE (12:34)
[2020-11-18] MEDS: DUONEB 0.5-3 MG/3 ml Neb IH SCH ×2 (13:11→19:09)
[2020-11-18] MEDS ORDERED: solu-MEDROL 125 MG, Sterile H2O 10 ml 2 ML IV SCH ×6 (18:00)
[2020-11-18] MEDS ORDERED: solu-MEDROL 60 MG, Sterile H2O 10 ml 2 ML IV SCH ×2 (18:00)
[2020-11-18] MEDS: solu-MEDROL IV SCH ×2 (18:32→23:21)
[2020-11-18] MEDS: Sterile H2O 10 ml IJ SCH (18:33)
[2020-11-19] MEDS: Sterile H2O 10 ml IJ SCH ×3 (01:16→11:49)
[2020-11-19] MEDS: DUONEB 0.5-3 MG/3 ml Neb IH SCH ×3 (01:17→12:01)
[2020-11-19 05:42] LABS: Hemoglobin 12.5 gm/dl (12.5-18.0); Mean Cell Volume 94.6 fl (78-100); Mean Corpuscular Hemoglobin 29.6 pg (26-32); Mean Corpuscular Hgb Concent. 31.3 g/dl (32-36); Mean Platelet Volume 9.5 fl (7.5-11.0); Platelet Count 217 K/mm3 (150-450); Red Blood Count 4.23 M/mm3 (4.1-5.6); Red Cell Distribution Width 15.6 % (11.5-14.0); White Blood Count 11.7 K/mm3 (4.0-10.5)
[2020-11-19] MEDS: solu-MEDROL IV SCH ×2 (06:11→11:49)
[2020-11-19 06:21] LABS: ALBUMIN 3.8 g/dL (3.5-5.0); ALKALINE PHOSPHATASE 44 U/L (38-126); ANION GAP 13.9 MEQ/L (5-15); BLOOD UREA NITROGEN 19 mg/dL (9-20); CHLORIDE 96 mmol/L (98-107); Calcium 8.8 mg/dL (8.4-10.2); Carbon Dioxide 27 mmol/L (22-30); Creatinine 1 0.76 mg/dL (0.66-1.25); EST GLOMERULAR FILTRATION RATE > 60.0 ML/MIN; Glucose 149 mg/dL (74-106); Potassium 3.8 mmol/L (3.5-5.1); SGOT/AST 23 U/L (17-59); SGPT/ALT 17 U/L (0-50); SODIUM 133 mmol/L (137-145); Total Protein 6.4 g/dL (6.3-8.2)
[2020-11-19] MEDS ORDERED: Zithromax 500 MG/ 250 ML NaCl Premix 500 MG/250 ML IVPB IV SCH (10:00)
[2020-11-19] MEDS ORDERED: ROCEPHIN 1 Gm-D5w 50 ml Bag** 1 G/50 ML IVPB IV SCH (10:00)
[2020-11-19] MEDS: Protonix 40MG Tablet PO SCH (10:25)
[2020-11-19] MEDS: Nicoderm CQ 21 MG TOP SCH (10:28)
[2020-11-19 12:05] VITALS: PULSE 78; O2SAT 90
[2020-11-19 12:25] VITALS: BP 131/72
== END 2020-11-19 14:50 | disposition home or self-care (01) ==
LOC: ED 01:57 → MED SURG 08:12
PROVIDERS: ADMIT Family Medicine; ATTEND Family Medicine
DX: J44.1 Chronic obstructive pulmonary disease with (acute) exacerbation (principal); R07.9 Chest pain, unspecified; Z79.899 Other long term (current) drug therapy; Z20.828 Contact with and (suspected) exposure to other viral communicable diseases
CPT/HCPCS: 36000; 36415; 71045; 80053; 81001; 83735; 83880; 84484; 85025; 85027; 85379; 87040; 93005; 93041; 94640; 94760; 94762; 96365; 99285; U0003; 93268; J0456; J0696; J2930; J7609; A9270-GY; G0378

== ENCOUNTER 2020-12-13 06:37 | Emergency (ER) | payer MEDICARE ==
--- NOTE | 2020-12-13 07:30 | ERPHSYRPT ---
- History of Present Illness Time Seen by Provider: 12/13/20 07:00 Historian: patient Exam Limitations: no limitations Patient Subjective Stated Complaint: C/O intermittent, burning, chest pain for the past few days. Denies any chest pain at this time. Triage Nursing Assessment: No SOB noted. Lungs clear with diminished bases. Does wear 02 at home PRN for SOB related to COPD. Alert and oriented X 4; answering questions appropriately. Physician History: Patient is a 65-year-old male presents to our ED via EMS for evaluation of intermittent chest pain that has been ongoing for the past 3 days. Pain described as a burning sensation that is across his chest. No associated nausea vomiting or diaphoresis. Patient is a smoker. Patient also drinks alcohol regularly. Symptoms are mild to moderate in intensity. No specific worsening or improving factors. No associated fever. No trauma. [facility] If [facility] is required [facility]. No active chest pain at this time. Patient resting comfortably. Patient was given nitroglycerin sublingual prior to arrival. No aspirin as patient has history of GI bleed Timing/Duration: day(s) (3 days) Activities at Onset: none Quality: burning Location: substernal Chest Pain Radiation: no radiation Severity of Pain-Max: moderate Severity of Pain-Current: mild Modifying Factors: Improves With: nothing Associated Symptoms: denies symptoms Nitro Today/Relief: 0.4 mg x 1 Aspirin Treatment Today: no aspirin today Allergies/Adverse Reactions: No Known Drug Allergies Allergy (Verified 11/18/20 02:21) Home Medications: Albuterol Sulfate [Proair Hfa] 2 puff IH UD 03/03/19 [History] Mometasone Furoate [Asmanex] 1 puff IH BID 03/03/19 [History] Tiotropium Br/Olodaterol HCl [Stiolto Respimat Inhal [place]] 2 puff IH QAM 03/03/19 [History] PANTOPRAZOLE 40 mg Tablet [Protonix 40MG Tablet] 40 mg PO QAM 11/18/20 [History] Hx Tetanus, Diphtheria Vaccination/Date Given: Yes (unknown) Hx Influenza Vaccination/Date Given: No Hx Pneumococcal Vaccination/Date Given: No Immunizations Up to Date: Yes Travel Risk - International Travel Have you traveled outside of the country in past 3 weeks: No - Coronavirus Screening Are you exhibiting any of the following symptoms?: No Close contact with a COVID-19 positive Pt in past 14-21 Days: No - Vaccine Status Have you recieved a Covid-19 vaccination: Yes Sole Rounder: Moderna - Vaccination Dates Date of 2cond Vaccination (if applicable): 08/18/2020 - Review of Systems Constitutional: No Symptoms, No Fever, No Chills Eyes: No Symptoms Ears, Nose, & Throat: No Symptoms Respiratory: No Symptoms, No Cough, No Dyspnea Cardiac: No Symptoms, No Chest Pain, No Edema, No Syncope Abdominal/Gastrointestinal: No Symptoms, No Abdominal Pain, No Nausea, No Vomiting, No Diarrhea Genitourinary Symptoms: No Symptoms, No Dysuria Musculoskeletal: No Symptoms, No Back Pain, No Neck Pain Skin: No Symptoms, No Rash Neurological: No Symptoms, No Dizziness, No Focal Weakness, No Sensory Changes Psychological: No Symptoms Endocrine: No Symptoms Hematologic/Lymphatic: No Symptoms Immunological/Allergic: No Symptoms All Other Systems: Reviewed and Negative - Past Medical History Pertinent Past Medical History: Yes Neurological History: No Pertinent History ENT History: No Pertinent History Cardiac History: No Pertinent History Respiratory History: Bronchitis, COPD, Pneumonia, Other Endocrine Medical History: No Pertinent History Musculoskeletal History: Arthritis GI Medical History: GERD, GI Bleed, Ulcer, Other History: No Pertinent History Psycho-Social History: Other Male Reproductive Disorders: No Pertinent History Other Medical History: few fractures - Past Surgical History Past Surgical History: Yes Neuro Surgical History: No Pertinent History Cardiac: No Pertinent History Respiratory: No Pertinent History Gastrointestinal: Other Genitourinary: No Pertinent History Musculoskeletal: No Pertinent History Male Surgical History: No Pertinent History Other Surgical History: Had Surgery on bleeding Ulcer - Social History Smoking Status: Current every day smoker How long have you smoked: "55 years" Exposure to second hand smoke: Yes Alcohol Use: Chronic (daily throughout the day including work time) Drug Use: none Patient Lives Alone: Yes (with son) - Nursing Vital Signs Nursing Vital Signs: Initial Vital Signs Temperature 98 F 12/13/20 06:40 Pulse Rate 80 12/13/20 06:40 Respiratory Rate 20 12/13/20 06:40 Blood Pressure 145/84 12/13/20 06:40 O2 Sat by Pulse Oximetry 93 L 12/13/20 06:40 Pain Scale Pain Intensity 0 - Physical Exam General Appearance: no apparent distress, alert Eye Exam: PERRL/EOMI, eyes nml inspection Ears, Nose, Throat Exam: normal ENT inspection, moist mucous membranes Neck Exam: normal inspection, non-tender, supple, full range of motion Respiratory Exam: normal breath sounds, lungs clear, No respiratory distress Cardiovascular Exam: regular rate/rhythm, normal heart sounds Gastrointestinal/Abdomen Exam: soft, No tenderness, No mass Back Exam: normal inspection, No CVA tenderness, No vertebral tenderness Extremity Exam: normal inspection, normal range of motion Neurologic Exam: alert, 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, cooperative, normal mood/affect, sensation nml, No motor deficits Skin Exam: normal color, warm, dry Lymphatic Exam: No adenopathy SpO2 Interpretation: normal SpO2: 93 O2 Delivery: Room Air - Course Nursing assessment & vital signs reviewed: Yes EKG Interpreted by Me: RATE (79), Sinus Rhythm, NORMAL AXIS, NORMAL INTERVALS - Radiology Exams Chest X-ray Interpretation: Teleradiologist Report (Chest x-ray is unchanged. It demonstrates COPD changes. Tiny right base calcified granuloma. No acute cardiopulmonary process observed.) Ordered Tests: Active Orders 24 hr Category Date Time Status Supervisor Scouring Pads STAT Care 12/13/20 07:10 Active EKG-ER Only STAT Care 12/13/20 07:10 Active IV Insertion STAT Care 12/13/20 07:10 Active Pulse Oximetry (ED) STAT Care 12/13/20 07:10 Active CHEST 1 VIEW (PORTABLE) Stat Exams 12/13/20 07:10 Completed BLOOD CULTURE Stat Lab 12/13/20 08:00 Received CBC W DIFF Stat Lab 12/13/20 07:25 Completed CMP Stat Lab 12/13/20 07:25 Completed NT PRO BNP Stat Lab 12/13/20 07:25 Completed TROPONIN Q3H Lab 12/13/20 07:25 Completed TROPONIN Q3H Lab 12/13/20 10:15 Ordered TROPONIN Q3H Lab 12/13/20 13:15 Ordered TROPONIN Q3H Lab 12/13/20 16:15 Ordered TROPONIN Q3H Lab 12/13/20 19:15 Ordered Respiratory Therapy Assessment DAILY RT 12/13/20 09:33 Active Medication Summary Generic Name Dose Route Start Last Admin Trade Name Freq PRN Reason Stop Dose Admin Heparin Sodium/Dextrose 25,000 units in 250 mls @ 10 mls/hr 12/13/20 09:00 12/13/20 08:47 Heparin 25,000 Units/D5w 250ml Premix IV 01/12/21 08:59 10 mls/hr .Q24H ALYSSA 10 mls/hr Administration Discontinued Medications Generic Name Dose Route Start Last Admin Trade Name Erin PRN Reason Stop Dose Admin Albuterol/Ipratropium 3 ml 12/13/20 07:40 12/13/20 08:00 Duoneb 0.5-3 Mg/3 Ml Neb IH 12/13/20 07:41 3 ml STAT ONE Administration Albuterol/Ipratropium Confirm 12/13/20 07:56 Duoneb 0.5-3 Mg/3 Ml Neb Administered 12/13/20 07:57 Dose 3 ml IH .STK-MED ONE Aspirin 324 mg 12/13/20 08:33 12/13/20 08:48 Baby Aspirin 81 Mg Chew PO 12/13/20 08:34 324 mg STAT ONE Administration Methylprednisolone Sodium 0 mg 12/13/20 07:40 12/13/20 07:49 Succinate 125 mg/ Sterile IV 12/13/20 07:41 125 mg Water 2 ml STAT ONE Administration Heparin Sodium (Beef Lung) 5,000 unit 12/13/20 08:44 12/13/20 08:46 Heparin 5000 Units/0.5 Ml (High Risk Med) IV 12/13/20 08:45 5,000 unit STAT ONE Administration Methylprednisolone Sodium Succinate Confirm 12/13/20 07:47 Solu-Medrol Administered 12/13/20 07:48 Dose 125 mg .ROUTE .STK-MED ONE Nitroglycerin 1 gm 12/13/20 08:34 12/13/20 08:48 Nitro-Bid 2% Ud Packets TOP 12/13/20 08:35 1 gm STAT ONE Administration Nitroglycerin Confirm 12/13/20 08:47 Nitro-Bid 2% Ud Packets Administered 12/13/20 08:48 Dose 1 gm .ROUTE .STK-MED ONE Sterile Water Confirm 12/13/20 07:47 Sterile H2o 10 Ml Administered 12/13/20 07:48 Dose 10 ml IJ .STK-MED ONE Lab/Rad Data: Laboratory Result Diagrams 12/13/20 07:25 12/13/20 07:25 Laboratory Results 12/13/20 12/13/20 12/13/20 Range/Units 08:23 07:25 07:25 WBC (4.0-10.5) K/mm3 RBC (4.1-5.6) M/mm3 Hgb (12.5-18.0) gm/dl Hct (42-50) % MCV (78-100) fl MCH (26-32) pg MCHC (32-36) g/dl RDW (11.5-14.0) % Plt Count (150-450) K/mm3 MPV (7.5-11.0) fl Gran % (36.0-66.0) % Eos # (Auto) (0-0.5) Absolute Lymphs (auto) (1.0-4.6) Absolute Monos (auto) (0.0-1.3) Lymphocytes % (24.0-44.0) % Monocytes % (0.0-12.0) % Eosinophils % (0.00-5.0) % Basophils % (0.0-0.4) % Absolute Granulocytes (1.4-6.9) Basophils # (0-0.4) Sodium 137 (137-145) mmol/L Potassium 4.6 (3.5-5.1) mmol/L Chloride 97 L (98-107) mmol/L Carbon Dioxide 31 H (22-30) mmol/L Anion Gap 13.6 (5-15) MEQ/L BUN 14 (9-20) mg/dL Creatinine 0.88 (0.66-1.25) mg/dL Estimated GFR > 60.0 ML/MIN Glucose 105 (74-106) mg/dL Calcium 9.5 (8.4-10.2) mg/dL Total Bilirubin 0.10 L (0.2-1.3) mg/dL AST 29 (17-59) U/L ALT 18 (0-50) U/L Alkaline Phosphatase 50 (38-126) U/L Troponin I 0.056 H* (0.000-0.034) ng/mL NT-Pro-B Natriuret Pep 283 (0-900) pg/mL Serum Total Protein 6.2 L (6.3-8.2) g/dL Albumin 3.6 (3.5-5.0) g/dL SARS-CoV-2 (PCR) NEGATIVE (NEGATIVE) 12/13/20 Range/Units 07:25 WBC 8.3 (4.0-10.5) K/mm3 RBC 4.04 L (4.1-5.6) M/mm3 Hgb 12.2 L (12.5-18.0) gm/dl Hct 38.9 L (42-50) % MCV 96.3 (78-100) fl MCH 30.2 (26-32) pg MCHC 31.4 L (32-36) g/dl RDW 16.4 H (11.5-14.0) % Plt Count 303 (150-450) K/mm3 MPV 8.6 (7.5-11.0) fl Gran % 59.7 (36.0-66.0) % Eos # (Auto) 0.13 (0-0.5) Absolute Lymphs (auto) 2.53 (1.0-4.6) Absolute Monos (auto) 0.65 (0.0-1.3) Lymphocytes % 30.5 (24.0-44.0) % Monocytes % 7.8 (0.0-12.0) % Eosinophils % 1.6 (0.00-5.0) % Basophils % 0.4 (0.0-0.4) % Absolute Granulocytes 4.95 (1.4-6.9) Basophils # 0.03 (0-0.4) Sodium (137-145) mmol/L Potassium (3.5-5.1) mmol/L Chloride (98-107) mmol/L Carbon Dioxide (22-30) mmol/L Anion Gap (5-15) MEQ/L BUN (9-20) mg/dL Creatinine (0.66-1.25) mg/dL Estimated GFR ML/MIN Glucose (74-106) mg/dL Calcium (8.4-10.2) mg/dL Total Bilirubin (0.2-1.3) mg/dL AST (17-59) U/L ALT (0-50) U/L Alkaline Phosphatase (38-126) U/L Troponin I (0.000-0.034) ng/mL NT-Pro-B Natriuret Pep (0-900) pg/mL Serum Total Protein (6.3-8.2) g/dL Albumin (3.5-5.0) g/dL SARS-CoV-2 (PCR) (NEGATIVE) - Progress Air Movement: good Progress Note: Patient reassessed. He feels well. No active chest pain. Troponin resulted as positive. Patient diagnosed with NSTEMI. Upon arrival was observed that patient was mildly hypoxic. Patient received a DuoNeb treatment. Solu-Medrol administered. Patient currently on 2L oxygen via nasal cannula. Heparin drip initiated. Nitropaste initiated. [facility] is a [facility]. [facility] who [facility] transfer. He stated that patient had a GI bleed in 2008 and that it would be appropriate to administer aspirin at this time. 325 mg of aspirin was ordered and administered. We are currently awaiting a Covid test prior to transfer. Patient updated on plan of care. He agrees to transfer to the [facility] in [place] for further evaluation and treatment. 12/13/20 09:11 12/13/20 09:58 Patient reassessed. He is well. Covid test negative. Chest x-ray negative for acute cardiopulmonary pathology. There is a tiny right base calcified lung granuloma. We have no ground transport available. In light of patient's acute coronary syndrome, chest pain, elevated troponin and hypoxia we will fly patient to [facility]. Blood Culture(s) Obtained: Yes Antibiotics given: No Discussed with : Other Counseled pt/family regarding: lab results, diagnosis, rad results, smoking cessation - Departure Departure Disposition: Transfer Clinical Impression: NSTEMI (non-ST elevated myocardial infarction), Hypoxia, Chest pain, Lung granuloma Condition: Stable Critical Care Time: No Referrals: DOCTOR,NO FAMILY [Primary Care Provider] -
[2020-12-13 07:31] LABS: Absolute Neutrophil Ct (ANC) 4.95 (1.4-6.9); BASOPHIL % 0.4 % (0.0-0.4); Basophil (Absolute #) 0.03 (0-0.4); Eosinophil % 1.6 % (0.00-5.0); Eosinophil (Absolute #) 0.13 (0-0.5); Hematocrit 38.9 % (42-50); Hemoglobin 12.2 gm/dl (12.5-18.0); Lymphocyte (Absolute #) 2.53 (1.0-4.6); Lymphocytes % 30.5 % (24.0-44.0); Mean Cell Volume 96.3 fl (78-100); Mean Corpuscular Hemoglobin 30.2 pg (26-32); Mean Corpuscular Hgb Concent. 31.4 g/dl (32-36); Mean Platelet Volume 8.6 fl (7.5-11.0); Monocyte (Absolute #) 0.65 (0.0-1.3); Monocytes % 7.8 % (0.0-12.0); Neutrophil % 59.7 % (36.0-66.0); Platelet Count 303 K/mm3 (150-450); Red Blood Count 4.04 M/mm3 (4.1-5.6); Red Cell Distribution Width 16.4 % (11.5-14.0); White Blood Count 8.3 K/mm3 (4.0-10.5)
[2020-12-13] MEDS ORDERED: Sterile H2O 10 ml IJ ONE (07:47)
[2020-12-13] MEDS ORDERED: solu-MEDROL ONE (07:47)
[2020-12-13] MEDS: solu-MEDROL 125 MG, Sterile H2O 10 ml 2 ML IV ONE ×2 (07:49)
[2020-12-13 07:51] LABS: ALBUMIN 3.6 g/dL (3.5-5.0); ALKALINE PHOSPHATASE 50 U/L (38-126); ANION GAP 13.6 MEQ/L (5-15); BLOOD UREA NITROGEN 14 mg/dL (9-20); CHLORIDE 97 mmol/L (98-107); Calcium 9.5 mg/dL (8.4-10.2); Carbon Dioxide 31 mmol/L (22-30); Creatinine 1 0.88 mg/dL (0.66-1.25); EST GLOMERULAR FILTRATION RATE > 60.0 ML/MIN; Glucose 105 mg/dL (74-106); NT PRO BNP 283 pg/mL (0-900); Potassium 4.6 mmol/L (3.5-5.1); SGOT/AST 29 U/L (17-59); SGPT/ALT 18 U/L (0-50); SODIUM 137 mmol/L (137-145); Total Protein 6.2 g/dL (6.3-8.2)
[2020-12-13] MEDS ORDERED: DUONEB 0.5-3 MG/3 ml Neb IH ONE (07:56)
[2020-12-13] MEDS: DUONEB 0.5-3 MG/3 ml Neb IH ONE (08:00)
[2020-12-13 08:33] VITALS: O2SAT 93
[2020-12-13] MEDS: Heparin 5000 UNITS/0.5 ML (HIGH RISK MED) IV ONE (08:46)
[2020-12-13] MEDS: Heparin 25,000 units/D5W 250ML PREMIX 25,000 UNITS/250 ML BAG IV SCH (08:47)
[2020-12-13] MEDS ORDERED: NITRO-BID 2% UD PACKETS ONE (08:47)
[2020-12-13] MEDS: NITRO-BID 2% UD PACKETS TOP ONE (08:48)
[2020-12-13] MEDS: BABY ASPIRIN 81 MG CHEW PO ONE (08:48)
[2020-12-13 09:08] VITALS: BP 152/80; PULSE 80
--- NOTE | 2020-12-13 09:17 | XRAY ---
Indication: Chest pain and short of breath. Comparison: November 18, 2020. Portable chest unchanged again demonstrating COPD and tiny right base calcified granuloma. Heart not enlarged. No new/acute cardiopulmonary abnormalities.
== END 2020-12-13 10:39 ==
LOC: ED 06:37
DX: I21.4 Non-ST elevation (NSTEMI) myocardial infarction (principal); R09.02 Hypoxemia; J84.10 Pulmonary fibrosis, unspecified; Z20.828 Contact with and (suspected) exposure to other viral communicable diseases; Z79.899 Other long term (current) drug therapy
CPT/HCPCS: 36000; 36415; 71045; 80053; 83880; 84484; 85025; 87040; 93005; 93041; 94640; 94760; 96374; 96375; 99284; U0003; J1644; J2930; A9270-GY

== ENCOUNTER 2021-01-26 00:29 | Emergency (ER) | payer MEDICARE, OTHER ==
--- NOTE | 2021-01-26 01:17 | ERPHSYRPT ---
<LAZARUS RABAGO - Last Filed: 01/26/21 07:12> - History of Present Illness Time Seen by Provider: 01/26/21 00:50 Historian: patient Exam Limitations: no limitations Patient Subjective Stated Complaint: I just started feeling a burning sensation in my chest. Triage Nursing Assessment: pt arrived via ambulance for c/o "burning sensation" in center of chest. No radiation of pain or burning feeling. Pt had the burning feeling earlier this morning and it went away. That same feeling returned tonight. Lungs diminished ant with coarse breath sounds to lower lobes. Post lung talley are diminished throughout. Pt wears 3L n/c aat at home. Physician History: Patient is a 65-year-old male presents to our emergency department via EMS with complaints of burning sensation in his chest. Symptoms started this morning. Symptoms resolved. Symptoms occurred this evening while patient was asleep. Patient states symptoms occur while he is laying flat and essentially resolved while he sitting up. No associated nausea vomiting or diaphoresis. No radiation. No trauma. No fever. No active chest pain upon arrival. Patient has a history of COPD. Patient is currently a 2PPD smoker. He requires 3L NC 24 hours daily. Patient denies a history of the same. Patient voices no other complaints concerns at this time. Timing/Duration: today Activities at Onset: none Quality: burning Location: substernal Chest Pain Radiation: no radiation Severity of Pain-Max: moderate Severity of Pain-Current: mild Modifying Factors: Improves With: change in position Associated Symptoms: denies symptoms Prior Chest Pain/Cardiac Workup: angina Nitro Today/Relief: no nitro taken today Aspirin Treatment Today: no aspirin today Allergies/Adverse Reactions: No Known Drug Allergies Allergy (Verified 01/26/21 00:49) Home Medications: Albuterol Sulfate [Proair Hfa] 2 puff IH UD 03/03/19 [History] Mometasone Furoate [Asmanex] 1 puff IH BID 03/03/19 [History] Tiotropium Br/Olodaterol HCl [Stiolto Respimat Inhal [place]] 2 puff IH QAM 03/03/19 [History] PANTOPRAZOLE 40 mg Tablet [Protonix 40MG Tablet] 40 mg PO QAM 11/18/20 [History] Hx Tetanus, Diphtheria Vaccination/Date Given: Yes (unknown) Hx Influenza Vaccination/Date Given: No Hx Pneumococcal Vaccination/Date Given: No Immunizations Up to Date: Yes Travel Risk - International Travel Have you traveled outside of the country in past 3 weeks: No - Coronavirus Screening Are you exhibiting any of the following symptoms?: Yes Symptoms: Shortness of Breath, Vomiting/Diarrhea Close contact with a COVID-19 positive Pt in past 14-21 Days: No - Vaccine Status Have you recieved a Covid-19 vaccination: Yes [employer]: [employer] - Vaccination Dates Date of 2cond Vaccination (if applicable): 08/18/2020 Comment: unknown 1st vaccine date - Review of Systems Constitutional: No Symptoms, No Fever, No Chills Eyes: No Symptoms Ears, Nose, & Throat: No Symptoms Respiratory: No Symptoms, No Cough, No Dyspnea Cardiac: No Symptoms, No Chest Pain, No Edema, No Syncope Abdominal/Gastrointestinal: No Symptoms, No Abdominal Pain, No Nausea, No Vomit ing, No Diarrhea Genitourinary Symptoms: No Symptoms, No Dysuria Musculoskeletal: No Symptoms, No Back Pain, No Neck Pain Skin: No Symptoms, No Rash Neurological: No Symptoms, No Dizziness, No Focal Weakness, No Sensory Changes Psychological: No Symptoms Endocrine: No Symptoms Hematologic/Lymphatic: No Symptoms Immunological/Allergic: No Symptoms All Other Systems: Reviewed and Negative - Past Medical History Pertinent Past Medical History: Yes Neurological History: No Pertinent History ENT History: No Pertinent History Cardiac History: No Pertinent History Respiratory History: Bronchitis, COPD, Pneumonia, Other Endocrine Medical History: No Pertinent History Musculoskeletal History: Arthritis GI Medical History: GERD, GI Bleed, Ulcer, Other History: No Pertinent History Psycho-Social History: Other Male Reproductive Disorders: No Pertinent History Other Medical History: few fractures - Past Surgical History Past Surgical History: Yes Neuro Surgical History: No Pertinent History Cardiac: No Pertinent History Respiratory: No Pertinent History Gastrointestinal: Other Genitourinary: No Pertinent History Musculoskeletal: No Pertinent History Male Surgical History: No Pertinent History Other Surgical History: Had Surgery on bleeding Ulcer - Social History Smoking Status: Current every day smoker How long have you smoked: "55 years" Exposure to second hand smoke: Yes Alcohol Use: Chronic (daily throughout the day including work time) Drug Use: none Patient Lives Alone: Yes (with son) - Physical Exam General Appearance: no apparent distress, alert Eye Exam: PERRL/EOMI, eyes nml inspection Ears, Nose, Throat Exam: normal ENT inspection, moist mucous membranes Neck Exam: normal inspection, non-tender, supple, full range of motion Respiratory Exam: normal breath sounds, lungs clear, airway intact, diminished breath sounds, No chest tenderness, No respiratory distress Cardiovascular Exam: regular rate/rhythm, normal heart sounds Gastrointestinal/Abdomen Exam: soft, normal bowel sounds, No tenderness, No distention, No mass Back Exam: normal inspection, No CVA tenderness, No vertebral tenderness Extremity Exam: normal inspection, normal range of motion Neurologic Exam: alert, 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, cooperative, normal mood/affect, sensation nml, No motor deficits Skin Exam: normal color, warm, dry SpO2 Interpretation: normal SpO2: 98 O2 Delivery: Room Air - Course Nursing assessment & vital signs reviewed: Yes EKG Interpreted by Me: RATE (84), Sinus Rhythm, NORMAL AXIS, NORMAL INTERVALS - Radiology Exams Chest X-ray Interpretation: Interpreted by me (Unchanged from December 13, 2020. Chest x-ray demonstrates COPD changes right base calcified granuloma normal cardiac silhouette. No acute cardiopulmonary process. Intact bony thorax.) - Progress Progress: improved Air Movement: good Progress Note: Patient reassessed. He is well. Initial troponin was 0.049. Patient had no active chest pain. Aspirin and nitro paste administered. Repeat troponin resulted at 0.340. Patient initiated on heparin drip and nitro drip. Patient will require admission. Patient still denies chest pain at this time. Chest x- ray consistent with COPD. No acute cardiopulmonary process observed. 01/26/21 06:08 Repeat EKG essentially nonremarkable. Patient endorsed to Dr. Rodriguez at approximately 7am. We have attempted to transfer to higher level of care but no beds are currently available. I spoke to Dr. Yaima Bethea from [facility], but [facility] has no beds available. [facility] has no beds available. 01/26/21 07:10 Blood Culture(s) Obtained: No Antibiotics given: No Counseled pt/family regarding: lab results, diagnosis, rad results - Departure Departure Disposition: Transfer Clinical Impression: Elevated troponin, NSTEMI (non-ST elevated myocardial infarction), ACS (acute coronary syndrome) Condition: Stable Critical Care Time: No Referrals: DOCTOR,NO FAMILY [Primary Care Provider] - <KEELY RODRIGUEZ - Last Filed: 01/26/21 07:39> - Nursing Vital Signs Nursing Vital Signs: Initial Vital Signs Temperature 97.3 F 01/26/21 00:30 Pulse Rate 86 01/26/21 00:30 Respiratory Rate 30 H 01/26/21 00:30 Blood Pressure 177/80 01/26/21 00:30 O2 Sat by Pulse Oximetry 98 01/26/21 00:30 Pain Scale Pain Intensity 0 Ordered Tests: Active Orders 24 hr Category Date Time Status Over The Road Driver STAT Care 01/26/21 01:03 Active EKG-ER Only STAT Care 01/26/21 01:03 Active Pulse Oximetry (ED) STAT Care 01/26/21 01:03 Active CHEST 1 VIEW (PORTABLE) Stat Exams 01/26/21 01:28 Taken CBC W DIFF Stat Lab 01/26/21 01:46 Completed CMP Stat Lab 01/26/21 01:46 Completed NT PRO BNP Stat Lab 01/26/21 01:46 Completed PROTIME WITH INR Stat Lab 01/26/21 01:30 Completed PTT Stat Lab 01/26/21 01:30 Completed TROPONIN Q3H Lab 01/26/21 01:46 Completed TROPONIN Q3H Lab 01/26/21 04:48 Completed TROPONIN Q3H Lab 01/26/21 06:50 Completed TROPONIN Q3H Lab 01/26/21 10:15 Ordered TROPONIN Q3H Lab 01/26/21 13:15 Ordered Medication Summary Generic Name Dose Route Start Last Admin Trade Name Freq PRN Reason Stop Dose Admin Nitroglycerin/Dextrose 250 mls @ 1.5 mls/hr 01/26/21 06:02 01/26/21 06:18 Ntg 0.2mg/Ml In D5w Glass IV 02/25/21 06:01 5 mcg/min .Q24H PRN 1.5 mls/hr CHEST PAIN Administration Protocol 5 MCG/MIN Heparin Sodium/Dextrose 25,000 units in 250 mls @ 10 mls/hr 01/26/21 06:30 01/26/21 06:17 Heparin 25,000 Units/D5w 250ml Premix IV 02/25/21 06:29 10 mls/hr .Q24H ALYSSA 10 mls/hr Administration Discontinued Medications Generic Name Dose Route Start Last Admin Trade Name Freq PRN Reason Stop Dose Admin Aspirin 324 mg 01/26/21 04:44 01/26/21 04:56 Baby Aspirin 81 Mg Chew PO 01/26/21 04:45 324 mg STAT ONE Administration Methylprednisolone Sodium 0 mg 01/26/21 06:16 01/26/21 06:20 Succinate 125 mg/ Sterile IV 01/26/21 06:17 125 mg Water 2 ml STAT ONE Administration Heparin Sodium (Beef Lung) Confirm 01/26/21 06:00 Heparin 5000 Units/0.5 Ml (High Risk Med) Administered 01/26/21 06:01 Dose 5,000 unit .ROUTE .STK-MED ONE Heparin Sodium (Beef Lung) 5,000 unit 01/26/21 06:09 01/26/21 06:11 Heparin 5000 Units/0.5 Ml (High Risk Med) IV 01/26/21 06:10 5,000 unit STAT ONE Administration Heparin Sodium/Dextrose Confirm 01/26/21 06:01 Heparin 25,000 Units/D5w 250ml Premix Administered 01/26/21 06:02 Dose 25,000 units in 250 mls @ ud IV .STK-MED ONE Methylprednisolone Sodium Succinate Confirm 01/26/21 06:19 Solu-Medrol Administered 01/26/21 06:20 Dose 125 mg .ROUTE .STK-MED ONE Nitroglycerin 1 gm 01/26/21 04:55 01/26/21 04:58 Nitro-Bid 2% Ud Packets TOP 01/26/21 04:56 1 gm STAT ONE Administration Nitroglycerin Confirm 01/26/21 04:58 Nitro-Bid 2% Ud Packets Administered 01/26/21 04:59 Dose 1 gm .ROUTE .STK-MED ONE Lab/Rad Data: Laboratory Result Diagrams 01/26/21 01:46 01/26/21 01:46 Laboratory Results 01/26/21 01/26/21 01/26/21 Range/Units 06:50 04:48 01:46 WBC (4.0-10.5) K/mm3 RBC (4.1-5.6) M/mm3 Hgb (12.5-18.0) gm/dl Hct (42-50) % MCV (78-100) fl MCH (26-32) pg MCHC (32-36) g/dl RDW (11.5-14.0) % Plt Count (150-450) K/mm3 MPV (7.5-11.0) fl Gran % (36.0-66.0) % Eos # (Auto) (0-0.5) Absolute Lymphs (auto) (1.0-4.6) Absolute Monos (auto) (0.0-1.3) Lymphocytes % (24.0-44.0) % Monocytes % (0.0-12.0) % Eosinophils % (0.00-5.0) % Basophils % (0.0-0.4) % Absolute Granulocytes (1.4-6.9) Basophils # (0-0.4) PT (9.4-12.5) SECONDS INR (0.8-3.0) APTT (25.1-36.5) SECONDS Sodium (137-145) mmol/L Potassium (3.5-5.1) mmol/L Chloride (98-107) mmol/L Carbon Dioxide (22-30) mmol/L Anion Gap (5-15) MEQ/L BUN (9-20) mg/dL Creatinine (0.66-1.25) mg/dL Estimated GFR ML/MIN Glucose (74-106) mg/dL Calcium (8.4-10.2) mg/dL Total Bilirubin (0.2-1.3) mg/dL AST (17-59) U/L ALT (0-50) U/L Alkaline Phosphatase (38-126) U/L Troponin I 0.733 H* 0.340 H* 0.049 H* (0.000-0.034) ng/mL NT-Pro-B Natriuret Pep (0-900) pg/mL Serum Total Protein (6.3-8.2) g/dL Albumin (3.5-5.0) g/dL 01/26/21 01/26/21 01/26/21 Range/Units 01:46 01:46 01:30 WBC 10.6 H (4.0-10.5) K/mm3 RBC 4.40 (4.1-5.6) M/mm3 Hgb 13.1 (12.5-18.0) gm/dl Hct 41.4 L (42-50) % MCV 94.1 (78-100) fl MCH 29.8 (26-32) pg MCHC 31.6 L (32-36) g/dl RDW 15.6 H (11.5-14.0) % Plt Count 213 (150-450) K/mm3 MPV 9.6 (7.5-11.0) fl Gran % 65.4 (36.0-66.0) % Eos # (Auto) 0.30 (0-0.5) Absolute Lymphs (auto) 2.30 (1.0-4.6) Absolute Monos (auto) 0.99 (0.0-1.3) Lymphocytes % 21.7 L (24.0-44.0) % Monocytes % 9.4 (0.0-12.0) % Eosinophils % 2.8 (0.00-5.0) % Basophils % 0.7 (0.0-0.4) % Absolute Granulocytes 6.92 H (1.4-6.9) Basophils # 0.07 (0-0.4) PT 10.6 (9.4-12.5) SECONDS INR 0.90 (0.8-3.0) APTT 28.7 (25.1-36.5) SECONDS Sodium 133 L (137-145) mmol/L Potassium 4.5 (3.5-5.1) mmol/L Chloride 96 L (98-107) mmol/L Carbon Dioxide 28 (22-30) mmol/L Anion Gap 13.5 (5-15) MEQ/L BUN 13 (9-20) mg/dL Creatinine 0.91 (0.66-1.25) mg/dL Estimated GFR > 60.0 ML/MIN Glucose 180 H (74-106) mg/dL Calcium 9.5 (8.4-10.2) mg/dL Total Bilirubin 0.50 (0.2-1.3) mg/dL AST 36 (17-59) U/L ALT 17 (0-50) U/L Alkaline Phosphatase 49 (38-126) U/L Troponin I (0.000-0.034) ng/mL NT-Pro-B Natriuret Pep 157 (0-900) pg/mL Serum Total Protein 7.4 (6.3-8.2) g/dL Albumin 4.5 (3.5-5.0) g/dL
[2021-01-26 01:50] LABS: Absolute Neutrophil Ct (ANC) 6.92 (1.4-6.9); BASOPHIL % 0.7 % (0.0-0.4); Basophil (Absolute #) 0.07 (0-0.4); Eosinophil % 2.8 % (0.00-5.0); Hematocrit 41.4 % (42-50); Hemoglobin 13.1 gm/dl (12.5-18.0); Lymphocytes % 21.7 % (24.0-44.0); Mean Cell Volume 94.1 fl (78-100); Mean Corpuscular Hemoglobin 29.8 pg (26-32); Mean Corpuscular Hgb Concent. 31.6 g/dl (32-36); Mean Platelet Volume 9.6 fl (7.5-11.0); Monocyte (Absolute #) 0.99 (0.0-1.3); Monocytes % 9.4 % (0.0-12.0); Neutrophil % 65.4 % (36.0-66.0); Platelet Count 213 K/mm3 (150-450); Red Cell Distribution Width 15.6 % (11.5-14.0); White Blood Count 10.6 K/mm3 (4.0-10.5)
[2021-01-26 02:22] LABS: ALBUMIN 4.5 g/dL (3.5-5.0); ALKALINE PHOSPHATASE 49 U/L (38-126); ANION GAP 13.5 MEQ/L (5-15); BLOOD UREA NITROGEN 13 mg/dL (9-20); CHLORIDE 96 mmol/L (98-107); Calcium 9.5 mg/dL (8.4-10.2); Carbon Dioxide 28 mmol/L (22-30); Creatinine 1 0.91 mg/dL (0.66-1.25); EST GLOMERULAR FILTRATION RATE > 60.0 ML/MIN; Glucose 180 mg/dL (74-106); NT PRO BNP 157 pg/mL (0-900); Potassium 4.5 mmol/L (3.5-5.1); SGOT/AST 36 U/L (17-59); SGPT/ALT 17 U/L (0-50); SODIUM 133 mmol/L (137-145); Total Protein 7.4 g/dL (6.3-8.2)
[2021-01-26] MEDS ORDERED: BABY ASPIRIN 81 MG CHEW PO ONE (04:44)
[2021-01-26 04:51] VITALS: O2SAT 98
[2021-01-26] MEDS ORDERED: NITRO-BID 2% UD PACKETS TOP ONE (04:55)
[2021-01-26] MEDS ORDERED: NITRO-BID 2% UD PACKETS ONE (04:58)
[2021-01-26] MEDS ORDERED: Heparin 5000 UNITS/0.5 ML (HIGH RISK MED) ONE (06:00)
[2021-01-26] MEDS ORDERED: Heparin 25,000 units/D5W 250ML PREMIX 25,000 UNITS/250 ML BAG IV ONE (06:01)
[2021-01-26] MEDS ORDERED: Ntg 0.2MG/Ml in D5W GLASS*** 250 ML IV PRN (06:02)
[2021-01-26] MEDS ORDERED: Heparin 5000 UNITS/0.5 ML (HIGH RISK MED) IV ONE (06:09)
[2021-01-26 06:16] LABS: INR 0.9 (0.8-3.0); PROTIME 10.6 SECONDS (9.4-12.5)
[2021-01-26] MEDS ORDERED: solu-MEDROL 125 MG, Sterile H2O 10 ml 2 ML IV ONE ×2 (06:16)
[2021-01-26] MEDS ORDERED: Ntg 0.2MG/Ml in D5W GLASS*** 250 ML IV ONE (06:17)
[2021-01-26 06:19] LABS: PTT 28.7 SECONDS (25.1-36.5)
[2021-01-26] MEDS ORDERED: solu-MEDROL ONE (06:19)
[2021-01-26] MEDS ORDERED: Heparin 25,000 units/D5W 250ML PREMIX 25,000 UNITS/250 ML BAG IV SCH (06:30)
[2021-01-26 08:11] VITALS: BP 143/89; PULSE 92
--- NOTE | 2021-01-26 09:16 | XRAY ---
Indication: Chest pain. Comparison: December 13, 2020. Portable chest unchanged again demonstrating COPD and right base calcified granuloma. Heart not enlarged. No new/acute findings.
== END 2021-01-26 08:59 | disposition short-term general hospital (02) ==
LOC: ED 00:29
DX: I21.4 Non-ST elevation (NSTEMI) myocardial infarction (principal); I24.9 Acute ischemic heart disease, unspecified; R07.9 Chest pain, unspecified; R77.8 Other specified abnormalities of plasma proteins; J44.9 Chronic obstructive pulmonary disease, unspecified; F17.200 Nicotine dependence, unspecified, uncomplicated; Z99.81 Dependence on supplemental oxygen; Z79.899 Other long term (current) drug therapy; Z20.822 Contact with and (suspected) exposure to COVID-19
CPT/HCPCS: 36000; 36415; 71045; 80053; 83880; 84484; 85025; 85610; 85730; 93005; 93041; 94760; 96374; 96375; 99285; J1644; J2930; A9270-GY

== ENCOUNTER 2021-04-14 04:23 | Observation (INO) | payer MEDICARE, OTHER ==
[2021-04-14] MEDS ORDERED: Zithromax 500 MG/ 250 ML NaCl Premix 500 MG/250 ML IVPB IV STA (04:59)
[2021-04-14] MEDS ORDERED: DUONEB 0.5-3 MG/3 ml Neb IH ONE ×2 (04:59→05:05)
[2021-04-14] MEDS ORDERED: solu-MEDROL 125 MG, Sterile H2O 10 ml 2 ML IV ONE ×2 (04:59)
[2021-04-14] MEDS ORDERED: ROCEPHIN 2 Gm-D5w 50ML BAG** 2 G/50 ML IVPB IV STA (05:00)
[2021-04-14] MEDS ORDERED: BABY ASPIRIN 81 MG CHEW PO ONE (05:00)
[2021-04-14] MEDS ORDERED: TYLENOL 325 MG PO STA (05:01)
[2021-04-14] MEDS ORDERED: solu-MEDROL ONE ×2 (05:13→12:07)
[2021-04-14] MEDS ORDERED: TYLENOL 325 MG ONE (05:13)
[2021-04-14] MEDS ORDERED: ROCEPHIN 2 Gm-D5w 50ML BAG** 2 G/50 ML IVPB IV ONE (05:13)
[2021-04-14] MEDS ORDERED: Zithromax 500 MG/ 250 ML NaCl Premix 500 MG/250 ML IVPB IV ONE (05:30)
[2021-04-14 05:34] LABS: BASOPHIL % 0.3 % (0.0-0.4); Basophil (Absolute #) 0.04 (0-0.4); Eosinophil % 0.5 % (0.00-5.0); Eosinophil (Absolute #) 0.07 (0-0.5); Hemoglobin 12.3 gm/dl (12.5-18.0); Lymphocyte (Absolute #) 1.44 (1.0-4.6); Lymphocytes % 9.3 % (24.0-44.0); Mean Cell Volume 93.6 fl (78-100); Mean Corpuscular Hemoglobin 28.1 pg (26-32); Mean Platelet Volume 9.2 fl (7.5-11.0); Monocyte (Absolute #) 1.35 (0.0-1.3); Monocytes % 8.7 % (0.0-12.0); Neutrophil % 81.2 % (36.0-66.0); Platelet Count 286 K/mm3 (150-450); Red Blood Count 4.38 M/mm3 (4.1-5.6); Red Cell Distribution Width 16.2 % (11.5-14.0); White Blood Count 15.5 K/mm3 (4.0-10.5)
[2021-04-14 05:59] LABS: NT PRO BNP 141 pg/mL (0-900)
[2021-04-14 06:12] LABS: ALBUMIN 4.4 g/dL (3.5-5.0); ALKALINE PHOSPHATASE 57 U/L (38-126); ANION GAP 10.3 MEQ/L (5-15); BLOOD UREA NITROGEN 10 mg/dL (9-20); CHLORIDE 98 mmol/L (98-107); Calcium 9.6 mg/dL (8.4-10.2); Carbon Dioxide 32 mmol/L (22-30); Creatinine 1 0.89 mg/dL (0.66-1.25); EST GLOMERULAR FILTRATION RATE > 60.0 ML/MIN; Glucose 114 mg/dL (74-106); MAGNESIUM 1.8 mg/dL (1.6-2.3); Potassium 4.3 mmol/L (3.5-5.1); SGOT/AST 27 U/L (17-59); SGPT/ALT 20 U/L (0-50); SODIUM 136 mmol/L (137-145)
[2021-04-14] MEDS ORDERED: Sodium Chloride 0.9% 1000 ML 1,000 ML IV STA (06:37)
[2021-04-14] MEDS ORDERED: Sodium Chloride 0.9% 1000 ML 1,000 ML ONE (06:38)
--- NOTE | 2021-04-14 07:06 | ERPHSYRPT ---
<LAZARUS ROBLERO - Last Filed: 04/14/21 10:27> - History of Present Illness Source: patient, EMS Exam Limitations: no limitations Patient Subjective Stated Complaint: pt states he has been short of breath for the last 4 days. states he is more short of breath with exertion Triage Nursing Assessment: pt alert and oriented, answers questions approp. pt arrive per ambulance and transfers to stretcher per self. skin warm and dry. pt short of breath with exertion. lunbs sound with exp wheezes noted throughout bilat. Timing/Duration: day(s) (4), gradual onset, worse Activities at Onset: activity, rest Severity of Dyspnea-Max: moderate Severity of Dyspnea-Current: moderate Possible Cause: occasional episodes Modifying Factors: Improves With: albuterol nebulizer, oxygen. Worsens With: coughing, exertion Associated Symptoms: cough, chest pain/discomfort, wheezing, productive cough, tightness Hx Tetanus, Diphtheria Vaccination/Date Given: Yes (unknown) Hx Influenza Vaccination/Date Given: Yes Hx Pneumococcal Vaccination/Date Given: No Immunizations Up to Date: Yes <JESUS PITTS - Last Filed: 04/16/21 12:53> - History of Present Illness Time Seen by Provider: 04/14/21 04:39 Physician History: 65-year-old male with history of chronic respiratory failure secondary to COPD on 3 L oxygen, tobacco abuse presented to the ER with increasing shortness of breath initially with exertion and now even resting for the last 4 days with associated increased productive cough with generalized weakness fatigue and tiredness. Also having subjective feeling of fever and chills. Shortness of breath was getting better with resting and neb treatments initially but now having shortness of breath even with resting. With a fever of 100.6 on presentation. He is given neb treatment prior to arrival with mild improvement. (JESUS PITTS) Allergies/Adverse Reactions: No Known Drug Allergies Allergy (Verified 04/15/21 19:55) Home Medications: Albuterol Sulfate [Proair Hfa] 2 puff IH UD 03/03/19 [History] Mometasone Furoate [Asmanex] 1 puff IH BID 03/03/19 [History] Tiotropium Br/Olodaterol HCl [Stiolto Respimat Inhal [place]] 2 puff IH QAM 03/03/19 [History] PANTOPRAZOLE 40 mg Tablet [Protonix 40MG Tablet] 40 mg PO QAM 11/18/20 [History] Albuterol 2.5 mg/3 ml Neb [Proventil 2.5 mg/3 ml Neb] 2.5 mg IH Q4-6HPRN PRN 04/14/21 [History] Travel Risk - International Travel Have you traveled outside of the country in past 3 weeks: No - Coronavirus Screening Are you exhibiting any of the following symptoms?: Yes Symptoms: Fever Close contact with a COVID-19 positive Pt in past 14-21 Days: No - Vaccine Status Have you recieved a Covid-19 vaccination: Yes 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 - Vaccination Dates Date of 2cond Vaccination (if applicable): 08/18/2020 Comment: booster shot last week <JESUS PITTS - Last Filed: 04/16/21 12:53> - Review of Systems Constitutional: Fever, Chills Eyes: No Symptoms Ears, Nose, & Throat: No Symptoms Respiratory: Cough, Dyspnea, Dyspnea on Exertion (ROMERO), Wheezing Cardiac: No Symptoms Abdominal/Gastrointestinal: No Symptoms Genitourinary Symptoms: No Symptoms Musculoskeletal: Myalgias Skin: No Symptoms Neurological: No Symptoms Psychological: No Symptoms Endocrine: No Symptoms Hematologic/Lymphatic: No Symptoms Immunological/Allergic: No Symptoms <JESUS PITTS - Last Filed: 04/16/21 12:53> - Past Medical History Pertinent Past Medical History: Yes Neurological History: No Pertinent History ENT History: No Pertinent History Cardiac History: No Pertinent History Respiratory History: Bronchitis, COPD, Pneumonia, Other Endocrine Medical History: No Pertinent History Musculoskeletal History: Arthritis GI Medical History: GERD, GI Bleed, Ulcer, Other History: No Pertinent History Psycho-Social History: Other Male Reproductive Disorders: No Pertinent History Other Medical History: few fractures - Past Surgical History Past Surgical History: Yes Neuro Surgical History: No Pertinent History Cardiac: No Pertinent History Respiratory: No Pertinent History Gastrointestinal: Other Genitourinary: No Pertinent History Musculoskeletal: No Pertinent History Male Surgical History: No Pertinent History Other Surgical History: Had Surgery on bleeding Ulcer - Social History Smoking Status: Current every day smoker How long have you smoked: "55 years" Exposure to second hand smoke: Yes Alcohol Use: Chronic (daily throughout the day including work time) Drug Use: none Patient Lives Alone: Yes (with son party supply specialist) <JESUS PITTS - Last Filed: 04/16/21 12:53> - Physical Exam General Appearance: no apparent distress, alert Eye Exam: PERRL/EOMI, eyes nml inspection Ears, Nose, Throat Exam: hearing grossly normal, pharyngeal erythema Neck Exam: normal inspection, non-tender, supple, full range of motion Respiratory Exam: diminished breath sounds, accessory muscle use, rhonchi, wheezing Cardiovascular/Chest Exam: regular rate/rhythm, tachycardia Abdominal/Gastrointestinal Exam: soft, normal bowel sounds Extremity Exam: non-tender, normal range of motion, normal inspection Neurologic Exam: alert, 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, cooperative, ammonia technician II-XII nml as tested, normal mood/affect Skin Exam: normal color SpO2 Interpretation: O2 applied SpO2: 91 O2 Delivery: Nasal Cannula <JESUS PITTS - Last Filed: 04/16/21 12:53> - Nursing Vital Signs Nursing Vital Signs: Initial Vital Signs Temperature 100.6 F 04/14/21 04:29 Pulse Rate 113 H 04/14/21 04:29 Respiratory Rate 24 04/14/21 04:29 Blood Pressure 144/82 04/14/21 04:29 O2 Sat by Pulse Oximetry 97 04/14/21 04:29 Pain Scale Pain Intensity 0 - CT Exams Thoracic Spine CT Interpretation: Tele-radiologist Report (Mild diffuse respiration artifact. Continued negative PE. New subtle bilateral perihilar interstitial opacities f avoring pneumonitis again emphysema and atelectasis/scarring.) <LAZARUS ROBLERO - Last Filed: 04/14/21 10:27> Ordered Tests: Medication Summary Discontinued Medications Generic Name Dose Route Start Last Admin Trade Name Freq PRN Reason Stop Dose Admin Acetaminophen 975 mg 04/14/21 05:01 04/14/21 05:14 Acetaminophen 325 Mg Tablet PO 04/14/21 05:02 975 mg STAT STA Administration Acetaminophen Confirm 04/14/21 05:13 Acetaminophen 325 Mg Tablet Administered 04/14/21 05:14 Dose 975 mg .ROUTE .STK-MED ONE Albuterol Sulfate 2.5 mg 04/14/21 17:21 Albuterol Sulfate 2.5 Mg/3 Ml Neb IH 05/14/21 17:20 Q4H/PRN PRN SHORTNESS OF BREATH/WHEEZING Albuterol Sulfate 2 puff 04/14/21 17:25 Albuterol Common Canister Inhaler 05/14/21 17:24 PRN PRN Albuterol/Ipratropium 3 ml 04/14/21 04:59 04/14/21 05:05 Ipratropium/Albuterol Sulfate 3 Ml Ampul.Neb 04/14/21 05:00 3 ml STAT ONE Administration Albuterol/Ipratropium Confirm 04/14/21 05:05 Ipratropium/Albuterol Sulfate 3 Ml Ampul.Neb Administered 04/14/21 05:06 Dose 3 ml IH .STK-MED ONE Albuterol/Ipratropium 3 ml 04/14/21 11:00 04/15/21 07:05 Ipratropium/Albuterol Sulfate 3 Ml Ampul.Neb 05/14/21 10:59 3 ml Q4HRT ALYSSA Administration Aspirin 324 mg 04/14/21 05:00 04/14/21 05:15 Aspirin 81 Mg Tab.Chew PO 04/14/21 05:01 324 mg STAT ONE Administration Methylprednisolone Sodium 0 mg 04/14/21 04:59 04/14/21 05:15 Succinate 125 mg/ Sterile IV 04/14/21 05:00 125 mg Water 2 ml STAT ONE Administration Methylprednisolone Sodium 0 mg 04/14/21 12:00 04/14/21 12:16 Succinate 60 mg/ Sterile Water IV 05/14/21 11:59 60 mg 2 ml Q6HT ALYSSA Administration Azithromycin 500 mg in 250 mls @ 250 mls/hr 04/14/21 04:59 04/14/21 09:15 Zithromax 500 Mg/ 250 Ml Nacl Premix IV 04/14/21 05:58 Infused STAT STA Infusion Ceftriaxone Sodium/Dextrose 2 g in 50 mls @ 100 mls/hr 04/14/21 05:00 04/14/21 05:51 Rocephin 2 Gm-D5w 50ml Bag IV 04/14/21 05:29 Infused STAT STA Infusion Ceftriaxone Sodium/Dextrose Confirm 04/14/21 05:13 Rocephin 2 Gm-D5w 50ml Bag Administered 04/14/21 05:14 Dose 2 g in 50 mls @ ud IV .STK-MED ONE Azithromycin Confirm 04/14/21 05:30 Zithromax 500 Mg/ 250 Ml Nacl Premix Administered 04/14/21 05:31 Dose 500 mg in 250 mls @ ud IV .STK-MED ONE Sodium Chloride 1,000 mls @ 999 mls/hr 04/14/21 06:37 04/14/21 08:07 Sodium Chloride 0.9% 1000 Ml IV 04/14/21 07:37 Infused .Q1H1M STA Infusion Sodium Chloride Confirm 04/14/21 06:38 Sodium Chloride 0.9% 1000 Ml Administered 04/14/21 06:39 Dose 1,000 mls @ ud .ROUTE .STK-MED ONE Ceftriaxone Sodium/Dextrose 1 g in 50 mls @ 100 mls/hr 04/15/21 10:00 04/15/21 08:37 Rocephin 1 Gm-D5w 50 Ml Bag IV 04/18/21 09:59 100 mls/hr Q24H10 ALYSSA Administration Azithromycin 500 mg in 250 mls @ 250 mls/hr 04/15/21 10:00 04/15/21 09:12 Zithromax 500 Mg/ 250 Ml Nacl Premix IV 05/15/21 09:59 250 mls/hr Q24H10 ALYSSA Administration Lorazepam 0 mg 04/14/21 11:38 Lorazepam 2 Mg/1 Ml 2 Mg Vial IV 05/14/21 11:37 Q2H PRN PRN CIWA SCORE Protocol Methylprednisolone Sodium Succinate Confirm 04/14/21 05:13 Methylprednis Sod Succ 125 Mg/2 Ml Vial Administered 04/14/21 05:14 Dose 125 mg .ROUTE .STK-MED ONE Methylprednisolone Sodium Succinate Confirm 04/14/21 12:07 Methylprednis Sod Succ 125 Mg/2 Ml Vial Administered 04/14/21 12:08 Dose 125 mg .ROUTE .STK-MED ONE Methylprednisolone Sodium Succinate 60 mg 04/14/21 18:00 04/15/21 05:42 Methylprednis Sod Succ 125 Mg/2 Ml Vial IV 05/14/21 17:59 60 mg Q6HT ALYSSA Administration Nicotine 21 mg 04/14/21 11:45 04/15/21 09:13 Nicotine 21 Mg/Patch Patch TOP 05/14/21 11:44 Not Given Q24H10 ALYSSA Pantoprazole Sodium 40 mg 04/14/21 18:00 04/15/21 09:12 Protonix (Pantoprazole) 40 Mg Tablet PO 05/14/21 17:59 40 mg QAM ALYSSA Administration Fluticasone/Salmeterol 2 puff 04/14/21 11:30 04/15/21 07:08 Fluticasone/Salmeterol / Common Canister IH 05/14/21 11:29 2 puff BIDRT ALYSSA Administration Lab/Rad Data: Laboratory Result Diagrams 04/14/21 05:30 04/14/21 05:30 Laboratory Results 04/14/21 04/14/21 04/14/21 Range/Units 10:13 09:05 08:17 WBC (4.0-10.5) K/mm3 RBC (4.1-5.6) M/mm3 Hgb (12.5-18.0) gm/dl Hct (42-50) % MCV (78-100) fl MCH (26-32) pg MCHC (32-36) g/dl RDW (11.5-14.0) % Plt Count (150-450) K/mm3 MPV (7.5-11.0) fl Gran % (36.0-66.0) % Eos # (Auto) (0-0.5) Absolute Lymphs (auto) (1.0-4.6) Absolute Monos (auto) (0.0-1.3) Lymphocytes % (24.0-44.0) % Monocytes % (0.0-12.0) % Eosinophils % (0.00-5.0) % Basophils % (0.0-0.4) % Absolute Granulocytes (1.4-6.9) Basophils # (0-0.4) D-Dimer (215-500) ng/mL Sodium (137-145) mmol/L Potassium (3.5-5.1) mmol/L Chloride (98-107) mmol/L Carbon Dioxide (22-30) mmol/L Anion Gap (5-15) MEQ/L BUN (9-20) mg/dL Creatinine (0.66-1.25) mg/dL Estimated GFR ML/MIN Glucose (74-106) mg/dL Lactic Acid (0.4-2.0) Calcium (8.4-10.2) mg/dL Magnesium (1.6-2.3) mg/dL Total Bilirubin (0.2-1.3) mg/dL AST (17-59) U/L ALT (0-50) U/L Alkaline Phosphatase (38-126) U/L Troponin I < 0.012 (0.000-0.034) ng/mL NT-Pro-B Natriuret Pep (0-900) pg/mL Serum Total Protein (6.3-8.2) g/dL Albumin (3.5-5.0) g/dL Urine Color YELLOW (YELLOW) Urine Appearance CLEAR (CLEAR) Urine pH 7.0 (5-6) Ur Specific [place] 1.039 (1.005-1.025) Urine Protein NEGATIVE (Negative) Urine Ketones NEGATIVE (NEGATIVE) Urine Blood NEGATIVE (0-5) Luther/ul Urine Nitrite NEGATIVE (NEGATIVE) Urine Bilirubin NEGATIVE (NEGATIVE) Urine Urobilinogen NEGATIVE (0-1) mg/dL Ur Leukocyte Esterase NEGATIVE (NEGATIVE) Urine WBC (Auto) NONE (0-5) /HPF Urine RBC (Auto) NONE (0-2) /HPF U Epithel Cells (Auto) NONE (FEW) /HPF Urine Bacteria (Auto) NONE (NEGATIVE) /HPF Urine Mucus (Auto) SLIGHT (NEGATIVE) /HPF Urine Culture Reflexed NO (NO) Urine Glucose NEGATIVE (NEGATIVE) mg/dL Influenza Type A Ag NEGATIVE (NEGATIVE) Influenza Type B Ag NEGATIVE (NEGATIVE) RSV (PCR) NEGATIVE (Negative) SARS-CoV-2 (PCR) NEGATIVE (NEGATIVE) 04/14/21 04/14/21 04/14/21 Range/Units 05:30 05:30 05:30 WBC (4.0-10.5) K/mm3 RBC (4.1-5.6) M/mm3 Hgb (12.5-18.0) gm/dl Hct (42-50) % MCV (78-100) fl MCH (26-32) pg MCHC (32-36) g/dl RDW (11.5-14.0) % Plt Count (150-450) K/mm3 MPV (7.5-11.0) fl Gran % (36.0-66.0) % Eos # (Auto) (0-0.5) Absolute Lymphs (auto) (1.0-4.6) Absolute Monos (auto) (0.0-1.3) Lymphocytes % (24.0-44.0) % Monocytes % (0.0-12.0) % Eosinophils % (0.00-5.0) % Basophils % (0.0-0.4) % Absolute Granulocytes (1.4-6.9) Basophils # (0-0.4) D-Dimer 656 H* (215-500) ng/mL Sodium 136 L (137-145) mmol/L Potassium 4.3 (3.5-5.1) mmol/L Chloride 98 (98-107) mmol/L Carbon Dioxide 32 H (22-30) mmol/L Anion Gap 10.3 (5-15) MEQ/L BUN 10 (9-20) mg/dL Creatinine 0.89 (0.66-1.25) mg/dL Estimated GFR > 60.0 ML/MIN Glucose 114 H (74-106) mg/dL Lactic Acid (0.4-2.0) Calcium 9.6 (8.4-10.2) mg/dL Magnesium 1.8 (1.6-2.3) mg/dL Total Bilirubin 0.60 (0.2-1.3) mg/dL AST 27 (17-59) U/L ALT 20 (0-50) U/L Alkaline Phosphatase 57 (38-126) U/L Troponin I < 0.012 (0.000-0.034) ng/mL NT-Pro-B Natriuret Pep 141 (0-900) pg/mL Serum Total Protein 7.0 (6.3-8.2) g/dL Albumin 4.4 (3.5-5.0) g/dL Urine Color (YELLOW) Urine Appearance (CLEAR) Urine pH (5-6) Ur Specific [place] (1.005-1.025) Urine Protein (Negative) Urine Ketones (NEGATIVE) Urine Blood (0-5) Luther/ul Urine Nitrite (NEGATIVE) Urine Bilirubin (NEGATIVE) Urine Urobilinogen (0-1) mg/dL Ur Leukocyte Esterase (NEGATIVE) Urine WBC (Auto) (0-5) /HPF Urine RBC (Auto) (0-2) /HPF U Epithel Cells (Auto) (FEW) /HPF Urine Bacteria (Auto) (NEGATIVE) /HPF Urine Mucus (Auto) (NEGATIVE) /HPF Urine Culture Reflexed (NO) Urine Glucose (NEGATIVE) mg/dL Influenza Type A Ag (NEGATIVE) Influenza Type B Ag (NEGATIVE) RSV (PCR) (Negative) SARS-CoV-2 (PCR) (NEGATIVE) 04/14/21 04/14/21 Range/Units 05:30 05:25 WBC 15.5 H (4.0-10.5) K/mm3 RBC 4.38 (4.1-5.6) M/mm3 Hgb 12.3 L (12.5-18.0) gm/dl Hct 41.0 L (42-50) % MCV 93.6 (78-100) fl MCH 28.1 (26-32) pg MCHC 30.0 L (32-36) g/dl RDW 16.2 H (11.5-14.0) % Plt Count 286 (150-450) K/mm3 MPV 9.2 (7.5-11.0) fl Gran % 81.2 H (36.0-66.0) % Eos # (Auto) 0.07 (0-0.5) Absolute Lymphs (auto) 1.44 (1.0-4.6) Absolute Monos (auto) 1.35 H (0.0-1.3) Lymphocytes % 9.3 L (24.0-44.0) % Monocytes % 8.7 (0.0-12.0) % Eosinophils % 0.5 (0.00-5.0) % Basophils % 0.3 (0.0-0.4) % Absolute Granulocytes 12.60 H (1.4-6.9) Basophils # 0.04 (0-0.4) D-Dimer (215-500) ng/mL Sodium (137-145) mmol/L Potassium (3.5-5.1) mmol/L Chloride (98-107) mmol/L Carbon Dioxide (22-30) mmol/L Anion Gap (5-15) MEQ/L BUN (9-20) mg/dL Creatinine (0.66-1.25) mg/dL Estimated GFR ML/MIN Glucose (74-106) mg/dL Lactic Acid 1.3 (0.4-2.0) Calcium (8.4-10.2) mg/dL Magnesium (1.6-2.3) mg/dL Total Bilirubin (0.2-1.3) mg/dL AST (17-59) U/L ALT (0-50) U/L Alkaline Phosphatase (38-126) U/L Troponin I (0.000-0.034) ng/mL NT-Pro-B Natriuret Pep (0-900) pg/mL Serum Total Protein (6.3-8.2) g/dL Albumin (3.5-5.0) g/dL Urine Color (YELLOW) Urine Appearance (CLEAR) Urine pH (5-6) Ur Specific [place] (1.005-1.025) Urine Protein (Negative) Urine Ketones (NEGATIVE) Urine Blood (0-5) Luther/ul Urine Nitrite (NEGATIVE) Urine Bilirubin (NEGATIVE) Urine Urobilinogen (0-1) mg/dL Ur Leukocyte Esterase (NEGATIVE) Urine WBC (Auto) (0-5) /HPF Urine RBC (Auto) (0-2) /HPF U Epithel Cells (Auto) (FEW) /HPF Urine Bacteria (Auto) (NEGATIVE) /HPF Urine Mucus (Auto) (NEGATIVE) /HPF Urine Culture Reflexed (NO) Urine Glucose (NEGATIVE) mg/dL Influenza Type A Ag (NEGATIVE) Influenza Type B Ag (NEGATIVE) RSV (PCR) (Negative) SARS-CoV-2 (PCR) (NEGATIVE) - Progress Discussed with Dr.: Pedro Will see patient in: hospital (observation) Counseled pt/family regarding: lab results, diagnosis, rad results <LAZARUS ROBLERO - Last Filed: 04/14/21 10:27> - Progress Progress: improved Air Movement: fair Blood Culture(s) Obtained: Yes Antibiotics given: Yes <JESUS PITTS - Last Filed: 04/16/21 12:53> - Progress Progress Note: Patient endorsed to Dr. Roblero at approximately [address] Roblero advised to follow- up on pending CTA chest to rule out PE. Patient will require admission per Dr. Pitts. CT chest is negative for PE. Subtle bilateral perihilar interstitial opacities favoring pneumonitis. Emphysema and atelectasis as well as scarring present. We will admit patient for further evaluation and treatment. 04/14/21 07:49 Patient is Covid negative. Patient will be admitted to Dr. Sagastume service. Plan of care discussed with patient. He agrees to admission [facility] for further evaluation and treatment. 04/14/21 10:28 (LAZAURS ROBLERO) 04/14/21 06:54 He is given DuoNeb and Solu-Medrol and started on Rocephin and Zithromax. EKG showed sinus tach without any ST elevation and negative initial troponins. Has a white count of 15. Chest x-ray bilateral airspace disease reviewed by me, official report is pending. Patient currently getting CTA. There is transferred to Dr. Roblero at shift change. (JESUS PITTS) - Departure Departure Disposition: Observation Critical Care Time: No <LAZARUS ROBLERO - Last Filed: 04/14/21 10:27> <JESUS PITTS - Last Filed: 04/16/21 12:53> - Departure Clinical Impression: Shortness of breath, Pneumonitis, Pneumonia, COPD exacerbation, Leukocytosis, Reported right 104 Condition: Stable
--- NOTE | 2021-04-14 08:50 | XRAY ---
Indication: Short of breath. Comparison: January 26, 2021. Portable chest again hyperinflated with a few tiny calcified granulomas. New subtle bilateral perihilar interstitial alveolar opacities without consolidation/large effusion. Remaining heart and bony thorax unremarkable.
--- NOTE | 2021-04-14 08:54 | XRAY ---
Indication: Short of breath. Elevated d-dimer. COPD. Multiple contiguous axial images obtained through the chest using 80 cc Isovue 370 contrast and PE protocol. Comparison: October 31, 2020. There is good opacification of the pulmonary arteries. Minimal aspiration artifact throughout. No pulmonary embolus. Heart not enlarged. Aorta again normal in course and caliber. Stable tiny right hilar calcified nodes. No pathologic mediastinal/hilar lymphadenopathy. Lungs again demonstrates mild diffuse pulmonary emphysema with scattered subsegmental atelectasis/scarring, and tiny right lower lobe calcified granuloma. There is now subtle bilateral perihilar interstitial opacities, possible pneumonitis in the right clinical setting. No suspicious mass, consolidation, or effusion. Bony thorax intact. Limited upper abdomen again demonstrates mid abdomen metallic density. Impression: 1. Respiration artifact limits pulmonary embolus evaluation. Again no pulmonary embolus. 2. New subtle bilateral perihilar interstitial opacities. Rule out pneumonitis. 3. Again incidental pulmonary emphysema, scattered atelectasis/scarring, and old granulomatous disease.
[2021-04-14 09:57] LABS: INFLUENZA A NEGATIVE (NEGATIVE); INFLUENZA B NEGATIVE (NEGATIVE); RESPIRATORY SYNCTIAL VIRUS NEGATIVE (Negative)
[2021-04-14 10:12] LABS: SARS-CoV-2 Xpert Express NEGATIVE (NEGATIVE)
[2021-04-14 10:27] LABS: Appearance CLEAR (CLEAR); Bilirubin NEGATIVE (NEGATIVE); Blood NEGATIVE Ery/ul (0-5); Glucose NEGATIVE (NEGATIVE); Ketones NEGATIVE (NEGATIVE); Leukocyte Esterase NEGATIVE (NEGATIVE); Mucus SLIGHT /HPF (NEGATIVE); Nitrite NEGATIVE (NEGATIVE); Protein,Urine Dip NEGATIVE (Negative); Specific Gravity 1.039 (1.005-1.025); Urobilinogen NEGATIVE mg/dL (0-1)
[2021-04-14] MEDS: Advair Hfa 230/21 Mcg COMMON CANISTER IH SCH ×2 (11:17→18:44)
[2021-04-14] MEDS: DUONEB 0.5-3 MG/3 ml Neb IH SCH ×4 (11:18→23:00)
[2021-04-14] MEDS ORDERED: Ativan 2 MG/1 ML VIAL IV PRN (11:38)
[2021-04-14] MEDS ORDERED: solu-MEDROL 60 MG, Sterile H2O 10 ml 2 ML IV SCH ×2 (12:00)
[2021-04-14] MEDS: Nicoderm CQ 21 MG TOP SCH (12:16)
[2021-04-14] MEDS ORDERED: PROVENTIL 2.5 MG/3 ML NEB IH PRN (17:21)
[2021-04-14] MEDS ORDERED: VENTOLIN COMMON CANISTER IH PRN (17:25)
[2021-04-14] MEDS ORDERED: Ventolin Hfa MDI IH SCH (17:30)
[2021-04-14] MEDS: solu-MEDROL IV SCH (18:24)
[2021-04-14] MEDS: Protonix 40MG Tablet PO SCH (18:25)
[2021-04-15] MEDS: solu-MEDROL IV SCH ×2 (00:25→05:42)
[2021-04-15] MEDS: DUONEB 0.5-3 MG/3 ml Neb IH SCH ×2 (03:08→07:05)
[2021-04-15 05:43] LABS: Hematocrit 34.4 % (42-50); Hemoglobin 10.3 gm/dl (12.5-18.0); Mean Cell Volume 94.8 fl (78-100); Mean Corpuscular Hemoglobin 28.4 pg (26-32); Mean Corpuscular Hgb Concent. 29.9 g/dl (32-36); Mean Platelet Volume 9.7 fl (7.5-11.0); Platelet Count 263 K/mm3 (150-450); Red Blood Count 3.63 M/mm3 (4.1-5.6); Red Cell Distribution Width 15.9 % (11.5-14.0); White Blood Count 16.9 K/mm3 (4.0-10.5)
[2021-04-15 06:07] LABS: ALBUMIN 3.5 g/dL (3.5-5.0); ALKALINE PHOSPHATASE 47 U/L (38-126); ANION GAP 10.6 MEQ/L (5-15); BLOOD UREA NITROGEN 16 mg/dL (9-20); CHLORIDE 102 mmol/L (98-107); Calcium 8.9 mg/dL (8.4-10.2); Carbon Dioxide 27 mmol/L (22-30); Creatinine 1 0.66 mg/dL (0.66-1.25); EST GLOMERULAR FILTRATION RATE > 60.0 ML/MIN; Glucose 150 mg/dL (74-106); SGOT/AST 22 U/L (17-59); SGPT/ALT 17 U/L (0-50); SODIUM 135 mmol/L (137-145); Total Protein 5.8 g/dL (6.3-8.2)
[2021-04-15] MEDS: Advair Hfa 230/21 Mcg COMMON CANISTER IH SCH (07:08)
[2021-04-15 08:56] VITALS: BP 127/66; PULSE 89
[2021-04-15] MEDS: Protonix 40MG Tablet PO SCH (09:12)
[2021-04-15] MEDS: Nicoderm CQ 21 MG TOP SCH (09:13)
[2021-04-15] MEDS ORDERED: Zithromax 500 MG/ 250 ML NaCl Premix 500 MG/250 ML IVPB IV SCH (10:00)
[2021-04-15] MEDS ORDERED: ROCEPHIN 1 Gm-D5w 50 ml Bag** 1 G/50 ML IVPB IV SCH (10:00)
[2021-04-15] MEDS ORDERED: OLODATEROL HCL MIST IH SCH (10:00)
[2021-04-15] MEDS ORDERED: [UNRECOGNIZED DRUG - OTHER] IH SCH (10:00)
[2021-04-15] MEDS ORDERED: TIOTROPIUM BR IH SCH (10:00)
[2021-04-16 12:54] VITALS: O2SAT 91
--- NOTE | 2021-04-27 21:30 | PCM.SSS ---
History of Present Illness - Chief Complaint Chief Complaint: COPD exacerbation Date: 04/15/21 History of Present Illness: is a 65 year old male. Presented to ER for increased sob over the past 4 days, pt. treated acutely in ER and improved, but did not feel able or ready to go home was placed in hospital or continued iv treatment and monitoring. - Review of Systems Constitutional: No Fever, No Chills Eyes: No Symptoms Ears, Nose, & Throat: No Symptoms Respiratory: Cough, Short Of Breath, Wheezing Cardiac: No Chest Pain, No Edema, No Syncope Abdominal/Gastrointestinal: No Abdominal Pain, No Nausea, No Vomiting, No Diarrhea Genitourinary Symptoms: No Dysuria Musculoskeletal: No Back Pain, No Neck Pain Skin: No Rash Neurological: No Dizziness, No Focal Weakness, No Sensory Changes Psychological: No Symptoms Endocrine: No Symptoms Hematologic/Lymphatic: No Symptoms Immunological/Allergic: No Symptoms Medications & Allergies Home Medications: Home Medication List Albuterol Sulfate [Proair Hfa] 2 puff IH UD 03/03/19 [History Confirmed 04/25] Mometasone Furoate [Asmanex] 1 puff IH BID 03/03/19 [History Confirmed 04/25/21] Tiotropium Br/Olodaterol HCl [Stiolto Respimat Inhal [place]] 2 puff IH QAM 03/03/19 [History Confirmed 04/25/21] PANTOPRAZOLE 40 mg Tablet [Protonix 40MG Tablet] 40 mg PO QAM 11/18/20 [History Confirmed 04/25/21] Albuterol 2.5 mg/3 ml Neb [Proventil 2.5 mg/3 ml Neb] 2.5 mg IH Q4-6HPRN PRN 04/14/21 [History Confirmed 04/25/21] Sucralfate 1 gm [Carafate 1 GM] 1 g PO ACHS #30 tablet 04/23/21 [Rx C onfirmed 04/25/21] Allergies/Adverse Reactions: Allergies Allergy/AdvReac Type Severity Reaction Status Date / Time No Known Drug Allergies Allergy Verified 04/23/21 17:35 - Past Medical History Past Medical History: Yes Neurological History: No Pertinent History ENT History: No Pertinent History Cardiac History: No Pertinent History CARDIAC HISTORY: No Pertinent History Respiratory History: Bronchitis, COPD, Pneumonia, Other Endocrine Medical History: No Pertinent History Musculoskelatal History: Arthritis GI Medical History: GERD, GI Bleed, Ulcer, Other History: No Pertinent History Pyscho-Social History: Other Male Reproductive Disorders: No Pertinent History Comment: few fractures - Past Surgical History Past Surgical History: Yes Neuro Surgical History: No Pertinent History Cardiac History: No Pertinent History Respiratory Surgery: No Pertinent History GI Surgical History: Other Genitourinary Surgical Hx: No Pertinent History Musculskeletal Surgical Hx: No Pertinent History Male Surgical History: No Pertinent History Other Surgical History: Had Surgery on bleeding Ulcer - Social History Smoking Status: Current every day smoker How long have you smoked: "55 years" Exposure to second hand smoke: Yes Alcohol: Daily Drug Use: none - Physical Exam General Appearance: no apparent distress Neurologic Exam: alert Eye Exam: PERRL/EOMI, eyes nml inspection Ears, Nose, Throat Exam: normal ENT inspection, pharynx normal, moist mucous membranes Neck Exam: normal inspection, non-tender, supple, full range of motion Respiratory Exam: normal breath sounds, lungs clear, No respiratory distress Cardiovascular Exam: regular rate/rhythm, normal heart sounds, normal peripheral pulses Gastrointestinal/Abdomen Exam: soft, normal bowel sounds, No tenderness, No mass Back Exam: normal inspection, normal range of motion, No CVA tenderness, No vertebral tenderness Extremity Exam: normal inspection, normal range of motion, pelvis stable Skin Exam: normal color, warm, dry, No rash Lymphatic Exam: No adenopathy Results - Labs Lab/Micro Results: Microbiology 04/14/21 05:30 Blood Culture Gram Stain - Final Blood Blood Culture - Final SEE REFERENCE LAB REPORT FOR FINAL RESULTS 04/14/21 05:30 Aerobic Culture - Final Blood Aerobic Organism ID Result 1 - Final 04/14/21 05:30 Blood Culture Gram Stain - Final Blood Not Reportable Blood Culture - Final NO GROWTH Assessment/Plan (1) COPD exacerbation Status: Acute Code(s): J44.1 - CHRONIC OBSTRUCTIVE PULMONARY DISEASE W (ACUTE) EXACERBATION (2) Pneumonia Status: Acute Code(s): J18.9 - PNEUMONIA, UNSPECIFIED ORGANISM Hospital Summary - Hospital Course Hospital Course: Pt. placed in observation for further treatment with iv abx and iv steroids with regular nebulization of albuterol. Pt. improved rapidly and was feeling much better and ready for discharge the following am. - Vitals & Intake/Output Vital Signs: Vital Signs Temperature 98.9 F 04/15/21 08:00 Pulse Rate 89 04/15/21 08:00 Respiratory Rate 21 04/15/21 08:00 Blood Pressure 127/66 04/15/21 08:00 O2 Sat by Pulse Oximetry 91 L 04/16/21 12:53 - Lab Result Diagrams: 04/15/21 05:34 04/15/21 05:34 Micro Results-Entire Visit: Microbiology 04/14/21 05:30 Blood Culture Gram Stain - Final Blood Blood Culture - Final SEE REFERENCE LAB REPORT FOR FINAL RESULTS 04/14/21 05:30 Aerobic Culture - Final Blood Aerobic Organism ID Result 1 - Final 04/14/21 05:30 Blood Culture Gram Stain - Final Blood Not Reportable Blood Culture - Final NO GROWTH - Procedures and Test Procedures and Tests throughout Hospitalization: Therapy Orders & Screens 04/14/21 05:17 Respiratory Therapy Assessment DAILY Comment: 04/14/21 11:17 Oxygen NASAL CANNULA 3 lpm Comment: Diagnosis: COPD exacerbation 04/14/21 11:26 RT Screen per Nursing Assess ONCE Comment: Protocol Order Physician Instructions: Greater than 3 points order RT Admission Screen Reason For Exam: Triggered on Admission Diagnosis: COPD exacerbation Diagnosis: COPD exacerbation Pneumonia: No Home O2: Yes Asthma: Yes CHF: No Home CPAP/BIPAP: No Home Nebs/MDI: Yes Total Points: 14 Smoking Cessation Education ONCE Comment: Diagnosis: COPD exacerbation Smoking Status: Current every day smoker How long have you smoked: "55 years" Have you smoked in the past 12 months: Yes Approximately how many cigarettes per day: "2-3 PPD" Do you dip or chew tobacco: No - Discharge Discharge Date: 04/15/21 Disposition: Home, Self-Care Condition: Stable Prescriptions: No Action Tiotropium Br/Olodaterol HCl [Stiolto Respimat Inhal [place]] 2 puff IH QAM Mometasone Furoate [Asmanex] 1 puff IH BID Albuterol Sulfate [Proair Hfa] 2 puff IH UD PANTOPRAZOLE 40 mg Tablet [Protonix 40MG Tablet] 40 mg PO QAM Albuterol 2.5 mg/3 ml Neb [Proventil 2.5 mg/3 ml Neb] 2.5 mg IH Q4- 6HPRN PRN PRN Reason: Shortness Of Breath/Wheezing Sucralfate 1 gm [Carafate 1 GM] 1 g PO ACHS #30 tablet Instructions: Exacerbation of COPD (DC) Follow up with: DAVID WATERS MD [ACTIVE STAFF] - 04/22/21 10:15 am Forms: Discharge Instructions
== END 2021-04-15 11:05 | disposition home or self-care (01) ==
LOC: ED 04:23 → MED SURG 10:45
PROVIDERS: ADMIT Family Medicine; ATTEND Family Medicine
DX: J44.1 Chronic obstructive pulmonary disease with (acute) exacerbation (principal); J18.9 Pneumonia, unspecified organism; D72.829 Elevated white blood cell count, unspecified; F17.200 Nicotine dependence, unspecified, uncomplicated; Z79.899 Other long term (current) drug therapy; Z20.828 Contact with and (suspected) exposure to other viral communicable diseases; Z99.81 Dependence on supplemental oxygen
CPT/HCPCS: 0241U; 36000; 36415; 71045; 71260; 80053; 81001; 83605; 83735; 83880; 84484; 85025; 85027; 85379; 87040; 87077; 93005; 93041; 93268; 94640; 94760; 96360; 96374; 99285; G0378; J0456; J0696; J2930; A9270-GY

== ENCOUNTER 2021-04-15 19:33 | Emergency (ER) | payer MEDICARE, OTHER ==
[2021-04-15 20:06] LABS: Hematocrit 35.6 % (42-50); Hemoglobin 10.7 gm/dl (12.5-18.0); Mean Cell Volume 94.4 fl (78-100); Mean Corpuscular Hemoglobin 28.4 pg (26-32); Mean Corpuscular Hgb Concent. 30.1 g/dl (32-36); Mean Platelet Volume 9.6 fl (7.5-11.0); Platelet Count 279 K/mm3 (150-450); Red Blood Count 3.77 M/mm3 (4.1-5.6); White Blood Count 23.2 K/mm3 (4.0-10.5)
[2021-04-15 20:13] LABS: INR 0.91 (0.8-3.0); PROTIME 10.7 SECONDS (9.4-12.5)
[2021-04-15 20:15] LABS: PTT 24.6 SECONDS (25.1-36.5)
[2021-04-15 20:28] LABS: ALKALINE PHOSPHATASE 45 U/L (38-126); ANION GAP 19.2 MEQ/L (5-15); BLOOD UREA NITROGEN 13 mg/dL (9-20); CHLORIDE 103 mmol/L (98-107); Calcium 9.3 mg/dL (8.4-10.2); Carbon Dioxide 17 mmol/L (22-30); Creatinine 1 0.59 mg/dL (0.66-1.25); EST GLOMERULAR FILTRATION RATE > 60.0 ML/MIN; ETHYL ALCOHOL 206 mg/dL (0-10); Glucose 123 mg/dL (74-106); NT PRO BNP 231 pg/mL (0-900); Potassium 3.8 mmol/L (3.5-5.1); SGOT/AST 26 U/L (17-59); SGPT/ALT 19 U/L (0-50); SODIUM 135 mmol/L (137-145); TROPONIN < 0.012 ng/mL (0.000-0.034); Total Protein 6.4 g/dL (6.3-8.2)
--- NOTE | 2021-04-15 20:41 | ERPHSYRPT ---
- History of Present Illness Source: patient, EMS Exam Limitations: intoxication Patient Subjective Stated Complaint: pt states he has been increasingly short of breath since going home today. Triage Nursing Assessment: pt alert and oriented, answers questions approp. pt a rrive per ambulance, transfers to stretcher per self. skin warm and dry. pt short of breath, lung sound with exp wheeze noted throughout bilat. skin warm and dry. Physician History: 65 yo wm who just got released from hospital today after short stay for COPD presents to ER by ambulance for increasing dyspnea. Pt is 3L O2 dep at home and continues to smoke 2PPD. He was smoking when EMS arrived at his house. Pt has also been drinking today. He denies chest pain/worsening cough/melena/hematochezia/orthopnea/PND/fever. CV19 test neg while in hospital. Timing/Duration: today Activities at Onset: rest Severity of Dyspnea-Max: moderate Severity of Dyspnea-Current: none Possible Cause: frequent episodes Modifying Factors: Improves With: activity. Worsens With: other Associated Symptoms: wheezing, No intermittent, No anxiety, No chest pain/discomfort, No edema, No fever, No insomnia, No loss of appetite, No lightheadedness, No weakness, No ankle swelling, No chills, No hemoptysis, No calf pain, No dizziness, No heaviness, No heart racing, No lightheadedness, No leg swelling, No muscle spasms feet, No muscle spasms hands, No painful breathing, No productive cough, No sweating, No tightness, No tingling face Allergies/Adverse Reactions: No Known Drug Allergies Allergy (Verified 04/15/21 19:55) Home Medications: Albuterol Sulfate [Proair Hfa] 2 puff IH UD 03/03/19 [History] Mometasone Furoate [Asmanex] 1 puff IH BID 03/03/19 [History] Tiotropium Br/Olodaterol HCl [Stiolto Respimat Inhal [place]] 2 puff IH QAM 03/03/19 [History] PANTOPRAZOLE 40 mg Tablet [Protonix 40MG Tablet] 40 mg PO QAM 11/18/20 [History] Albuterol 2.5 mg/3 ml Neb [Proventil 2.5 mg/3 ml Neb] 2.5 mg IH Q4-6HPRN PRN 04/14/21 [History] Hx Tetanus, Diphtheria Vaccination/Date Given: Yes (unknown) Hx Influenza Vaccination/Date Given: Yes Hx Pneumococcal Vaccination/Date Given: No Immunizations Up to Date: Yes Travel Risk - International Travel Have you traveled outside of the country in past 3 weeks: No - Coronavirus Screening Are you exhibiting any of the following symptoms?: Yes Symptoms: Shortness of Breath Close contact with a COVID-19 positive Pt in past 14-21 Days: No - Vaccine Status Have you recieved a Covid-19 vaccination: Yes Household Chores: Moderna - Vaccination Dates Date of 2cond Vaccination (if applicable): 08/18/2020 Comment: has had booster shot sometime last week - Review of Systems Constitutional: No Symptoms Eyes: No Symptoms Ears, Nose, & Throat: No Symptoms Respiratory: No Symptoms, Dyspnea, Dyspnea on Exertion (ROMERO) Cardiac: No Symptoms Abdominal/Gastrointestinal: No Symptoms Genitourinary Symptoms: No Symptoms Musculoskeletal: No Symptoms Skin: No Symptoms Neurological: No Symptoms Psychological: No Symptoms Endocrine: No Symptoms Hematologic/Lymphatic: No Symptoms Immunological/Allergic: No Symptoms - Past Medical History Pertinent Past Medical History: Yes Neurological History: No Pertinent History ENT History: No Pertinent History Cardiac History: No Pertinent History Respiratory History: Bronchitis, COPD, Pneumonia, Other Endocrine Medical History: No Pertinent History Musculoskeletal History: Arthritis GI Medical History: GERD, GI Bleed, Ulcer, Other History: No Pertinent History Psycho-Social History: Other Male Reproductive Disorders: No Pertinent History Other Medical History: few fractures - Past Surgical History Past Surgical History: Yes Neuro Surgical History: No Pertinent History Cardiac: No Pertinent History Respiratory: No Pertinent History Gastrointestinal: Other Genitourinary: No Pertinent History Musculoskeletal: No Pertinent History Male Surgical History: No Pertinent History Other Surgical History: Had Surgery on bleeding Ulcer - Social History Smoking Status: Current every day smoker How long have you smoked: yrs Exposure to second hand smoke: No Alcohol Use: Chronic (daily throughout the day including work time) Drug Use: none Patient Lives Alone: Yes Significant Family History: no pertinent family hx - Nursing Vital Signs Nursing Vital Signs: Initial Vital Signs Temperature 97.1 F 04/15/21 19:37 Pulse Rate 104 H 04/15/21 19:37 Respiratory Rate 24 04/15/21 19:37 Blood Pressure 136/87 04/15/21 19:37 O2 Sat by Pulse Oximetry 99 04/15/21 19:37 Pain Scale Pain Intensity 0 Mildly tachy - Physical Exam General Appearance: no apparent distress Eye Exam: PERRL/EOMI, eyes nml inspection Ears, Nose, Throat Exam: hearing grossly normal, normal ENT inspection, normal pharynx Neck Exam: normal inspection, non-tender, supple, full range of motion, No Brudzinski, No Kernig's, No meningismus, No carotid bruit Respiratory Exam: airway intact, diminished breath sounds, No respiratory distress Cardiovascular/Chest Exam: tachycardia (Mild), No murmur Abdominal/Gastrointestinal Exam: soft, normal bowel sounds, No tenderness Extremity Exam: non-tender, normal range of motion, normal inspection, normal capillary refill Peripheral Pulses Exam: carotid (R): 2+, carotid (L): 2+ Neurologic Exam: alert, 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, cooperative, field rep II-XII nml as tested, normal mood/affect, sensation nml, No motor deficits, No sensory deficit Skin Exam: normal color, warm, dry Lymphatic Exam: No adenopathy SpO2 Interpretation: normal SpO2: 100 O2 Delivery: Room Air - Course EKG Interpreted by Me: RATE (Sinus tach/R113/Prolonged QTc/Nonspecific ST-Twave changes) - Radiology Exams Chest X-ray Interpretation: Interpreted by me (COPD/Nothing acute) Ordered Tests: Active Orders 24 hr Category Date Time Status EKG-ER Only STAT Care 04/15/21 19:43 Completed CHEST 1 VIEW (PORTABLE) Stat Exams 04/15/21 19:43 Taken CBC W DIFF Stat Lab 04/15/21 20:00 Completed CMP Stat Lab 04/15/21 20:00 Completed ETHYL ALCOHOL Stat Lab 04/15/21 20:00 Completed Manual Differential NC Stat Lab 04/15/21 20:00 Completed NT PRO BNP Stat Lab 04/15/21 20:00 Completed PROTIME WITH INR Stat Lab 04/15/21 20:00 Completed PTT Stat Lab 04/15/21 20:00 Completed TROPONIN Stat Lab 04/15/21 20:00 Completed Respiratory Therapy Assessment DAILY RT 04/15/21 21:02 Completed Medication Summary Discontinued Medications Generic Name Dose Route Start Last Admin Trade Name Freq PRN Reason Stop Dose Admin Albuterol/Ipratropium 3 ml 04/15/21 20:42 04/15/21 21:02 Ipratropium/Albuterol Sulfate 3 Ml Ampul.Neb IH 04/15/21 20:43 3 ml STAT ONE Administration Albuterol/Ipratropium Confirm 04/15/21 20:46 Ipratropium/Albuterol Sulfate 3 Ml Ampul.Neb Administered 04/15/21 20:47 Dose 3 ml IH .STK-MED ONE Sodium Chloride 1,000 mls @ 999 mls/hr 04/15/21 20:46 04/15/21 20:51 Sodium Chloride 0.9% 1000 Ml IV 04/15/21 21:46 999 mls/hr .Q1H1M STA Administration Sodium Chloride Confirm 04/15/21 20:49 Sodium Chloride 0.9% 1000 Ml Administered 04/15/21 20:50 Dose 1,000 mls @ ud .ROUTE .STK-MED ONE Lab/Rad Data: Laboratory Result Diagrams 04/15/21 20:00 04/15/21 20:00 Laboratory Results 04/15/21 04/15/21 04/15/21 Range/Units 20:00 20:00 20:00 WBC 23.2 H (4.0-10.5) K/mm3 RBC 3.77 L (4.1-5.6) M/mm3 Hgb 10.7 L (12.5-18.0) gm/dl Hct 35.6 L (42-50) % MCV 94.4 (78-100) fl MCH 28.4 (26-32) pg MCHC 30.1 L (32-36) g/dl RDW 16.0 H (11.5-14.0) % Plt Count 279 (150-450) K/mm3 MPV 9.6 (7.5-11.0) fl Segmented Neutrophils 94 H (36.-66.) % Lymphocytes (Manual) 3 L (24-44) % Monocytes (Manual) 3 (0.0-12.0) % Platelet Estimate NORMAL (NORMAL) RBC Morphology NORMAL PT 10.7 (9.4-12.5) SECONDS INR 0.91 (0.8-3.0) APTT 24.6 L (25.1-36.5) SECONDS Sodium 135 L (137-145) mmol/L Potassium 3.8 (3.5-5.1) mmol/L Chloride 103 (98-107) mmol/L Carbon Dioxide 17 L (22-30) mmol/L Anion Gap 19.2 H (5-15) MEQ/L BUN 13 (9-20) mg/dL Creatinine 0.59 L (0.66-1.25) mg/dL Estimated GFR > 60.0 ML/MIN Glucose 123 H (74-106) mg/dL Calcium 9.3 (8.4-10.2) mg/dL Total Bilirubin 0.20 (0.2-1.3) mg/dL AST 26 (17-59) U/L ALT 19 (0-50) U/L Alkaline Phosphatase 45 (38-126) U/L Troponin I < 0.012 (0.000-0.034) ng/mL NT-Pro-B Natriuret Pep 231 (0-900) pg/mL Serum Total Protein 6.4 (6.3-8.2) g/dL Albumin 4.0 (3.5-5.0) g/dL Ethyl Alcohol 206 H (0-10) mg/dL - Progress Progress: improved Air Movement: good Progress Note: 04/15/21 20:47 1L NS bolus Duoneb x1 Counseled pt/family regarding: lab results, diagnosis, need for follow-up, rad results - Departure Departure Disposition: Home Clinical Impression: COPD exacerbation, Tobacco abuse, Alcohol intoxication Condition: Stable Critical Care Time: No Referrals: DOCTOR,NO FAMILY [Primary Care Provider] - Follow up/PCP as directed Instructions: Shortness of Breath (Dyspnea) (DC), Exacerbation of COPD (DC), Alcohol Abuse and Alcoholism (DC) Additional Instructions: Continue current meds Quit smoking Quit drinking Follow up with your family MD Return to ER for increasing shortness of breath, temperature greater than 100.5, or chest pain
[2021-04-15] MEDS ORDERED: DUONEB 0.5-3 MG/3 ml Neb IH ONE ×2 (20:42→20:46)
[2021-04-15] MEDS ORDERED: Sodium Chloride 0.9% 1000 ML 1,000 ML IV STA (20:46)
[2021-04-15 20:48] VITALS: BP 117/71
[2021-04-15] MEDS ORDERED: Sodium Chloride 0.9% 1000 ML 1,000 ML ONE (20:49)
[2021-04-15 21:04] VITALS: PULSE 108
[2021-04-15 22:34] LABS: Lymphocytes 3 % (24-44); Monocyte 3 % (0.0-12.0); Neutrophils 94 % (36.-66.); Platelet Estimate NORMAL (NORMAL); Total Cells Counted 100
[2021-04-15 22:36] VITALS: O2SAT 100
--- NOTE | 2021-04-16 08:10 | XRAY ---
Indication: Dyspnea. Comparison: One day earlier. Portable chest unchanged again hyperinflated with minimal left base fibrosis/scarring and tiny right base calcified granuloma. Remaining heart and lungs unremarkable. No new/acute findings.
== END 2021-04-15 21:27 | disposition home or self-care (01) ==
LOC: ED 19:33
DX: J44.1 Chronic obstructive pulmonary disease with (acute) exacerbation (principal); Z72.0 Tobacco use; F10.129 Alcohol abuse with intoxication, unspecified; Z99.81 Dependence on supplemental oxygen; R06.2 Wheezing
CPT/HCPCS: 36000; 36415; 71045; 80053; 83880; 84484; 85025; 85610; 85730; 93005; 94640; 99284; G0480; 80307; A9270-GY

== ENCOUNTER 2021-04-23 17:23 | Emergency (ER) | payer MEDICARE, OTHER ==
[2021-04-23] MEDS ORDERED: MORPHINE SULFATE 4 MG INJ IV ONE (17:51)
[2021-04-23] MEDS ORDERED: Zofran 4 MG/2 ML VIAL IV ONE (17:51)
[2021-04-23] MEDS ORDERED: Sodium Chloride 0.9% 1000 ML 1,000 ML IV SCH (18:00)
[2021-04-23] MEDS ORDERED: Sodium Chloride 0.9% 1000 ML 1,000 ML ONE (18:18)
[2021-04-23] MEDS ORDERED: Zofran 4 MG/2 ML VIAL ONE (18:18)
[2021-04-23] MEDS ORDERED: MORPHINE SULFATE 4 MG INJ ONE (18:18)
[2021-04-23 18:36] LABS: Absolute Neutrophil Ct (ANC) 8.91 (1.4-6.9); BASOPHIL % 0.2 % (0.0-0.4); Basophil (Absolute #) 0.02 (0-0.4); Eosinophil % 0.8 % (0.00-5.0); Hematocrit 39.4 % (42-50); Hemoglobin 11.8 gm/dl (12.5-18.0); Lymphocyte (Absolute #) 2.22 (1.0-4.6); Lymphocytes % 18.2 % (24.0-44.0); Mean Cell Volume 94.7 fl (78-100); Mean Corpuscular Hemoglobin 28.4 pg (26-32); Mean Corpuscular Hgb Concent. 29.9 g/dl (32-36); Mean Platelet Volume 9.3 fl (7.5-11.0); Monocyte (Absolute #) 0.92 (0.0-1.3); Monocytes % 7.6 % (0.0-12.0); Neutrophil % 73.2 % (36.0-66.0); Platelet Count 258 K/mm3 (150-450); Red Blood Count 4.16 M/mm3 (4.1-5.6); Red Cell Distribution Width 16.1 % (11.5-14.0); White Blood Count 12.2 K/mm3 (4.0-10.5)
[2021-04-23 18:41] LABS: ALKALINE PHOSPHATASE 54 U/L (38-126); ANION GAP 9.9 MEQ/L (5-15); BLOOD UREA NITROGEN 20 mg/dL (9-20); CHLORIDE 90 mmol/L (98-107); Calcium 9.4 mg/dL (8.4-10.2); Carbon Dioxide 39 mmol/L (22-30); Creatinine 1 0.98 mg/dL (0.66-1.25); EST GLOMERULAR FILTRATION RATE > 60.0 ML/MIN; Glucose 130 mg/dL (74-106); LIPASE 207 U/L (23-300); Potassium 3.2 mmol/L (3.5-5.1); SGOT/AST 29 U/L (17-59); SGPT/ALT 22 U/L (0-50); SODIUM 136 mmol/L (137-145); Total Protein 6.5 g/dL (6.3-8.2)
--- NOTE | 2021-04-23 19:55 | ERPHSYRPT ---
- History of Present Illness Time Seen by Provider: 04/23/21 17:26 Historian: patient, EMS Exam Limitations: no limitations Patient Subjective Stated Complaint: Pt states that he has been having upper medial abdominal pain for the past week and has been unable to hold anything down Triage Nursing Assessment: Pt brought to the ER by EMS, hypertensive, rates pain at this time as 05/23, pt is a daily drinker and states that he hasn't had anything to drink since Sunday, pt is on 3L NC at home, smokes 2 packs of cigarettes daily, reports that he usually weighs around 150 lbs but weighs 129 today and contributes the weight loss to him not being able to eat and his abdomen hurting, states that the pain comes when he tries to eat something, pulses normal, has been taking leticia selzters, hx of bleeding ulcer that required surgery, denies any blood in stool or any issues with bowels Physician History: 65-year-old with multiple medical problems presented in the ER with almost 1 week history of upper abdominal pain dull aching moderate intensity, aggravated with oral intake with associated nausea and nonprojectile, nonbilious vomiting and unable to hold much down. Patient reports having progressive weight loss. Patient denies any diarrhea or constipation. No fever or chills reported. Does have chronic respiratory failure on 3 L oxygen and heavy smoking and shortness of breath is not any worse than usual. Denies any chest pain or palpitation/shortness of breath. Patient drinks every day and last drink was 6 days ago. Timing/Duration: week(s) (1), intermittent, gradual onset, worse Activities at Onset: rest Quality: dullness Abdominal Pain Onset Location: epigastric, periumbilical Pain Radiation: no radiation Severity of Pain-Max: moderate Severity of Pain-Current: mild Modifying Factors: Improves With: eating Associated Symptoms: nausea, vomiting Previous symptoms: same symptoms as today Allergies/Adverse Reactions: No Known Drug Allergies Allergy (Verified 04/23/21 17:35) Home Medications: Albuterol Sulfate [Proair Hfa] 2 puff IH UD 03/03/19 [History] Mometasone Furoate [Asmanex] 1 puff IH BID 03/03/19 [History] Tiotropium Br/Olodaterol HCl [Stiolto Respimat Inhal [place]] 2 puff IH QAM 03/03/19 [History] PANTOPRAZOLE 40 mg Tablet [Protonix 40MG Tablet] 40 mg PO QAM 11/18/20 [History] Albuterol 2.5 mg/3 ml Neb [Proventil 2.5 mg/3 ml Neb] 2.5 mg IH Q4-6HPRN PRN 04/14/21 [History] Hx Tetanus, Diphtheria Vaccination/Date Given: Yes (unknown) Hx Influenza Vaccination/Date Given: Yes Hx Pneumococcal Vaccination/Date Given: No Travel Risk - International Travel Have you traveled outside of the country in past 3 weeks: No - Coronavirus Screening Are you exhibiting any of the following symptoms?: No Close contact with a COVID-19 positive Pt in past 14-21 Days: No - Vaccine Status Have you recieved a Covid-19 vaccination: Yes Referral Clerk: Moderna - Vaccination Dates Date of 2cond Vaccination (if applicable): unknown - Review of Systems Constitutional: No Symptoms Eyes: No Symptoms Ears, Nose, & Throat: No Symptoms Respiratory: No Symptoms, Cough, Dyspnea, Wheezing Cardiac: No Symptoms Abdominal/Gastrointestinal: Abdominal Pain, Nausea, Vomiting Genitourinary Symptoms: No Symptoms Musculoskeletal: No Symptoms Skin: No Symptoms Neurological: No Symptoms Psychological: Anxiety Hematologic/Lymphatic: No Symptoms Immunological/Allergic: No Symptoms - Past Medical History Pertinent Past Medical History: Yes Neurological History: No Pertinent History ENT History: No Pertinent History Cardiac History: No Pertinent History Respiratory History: Bronchitis, COPD, Pneumonia, Other Endocrine Medical History: No Pertinent History Musculoskeletal History: Arthritis GI Medical History: GERD, GI Bleed, Ulcer, Other History: No Pertinent History Psycho-Social History: Other Male Reproductive Disorders: No Pertinent History Other Medical History: few fractures - Past Surgical History Past Surgical History: Yes Neuro Surgical History: No Pertinent History Cardiac: No Pertinent History Respiratory: No Pertinent History Gastrointestinal: Other Genitourinary: No Pertinent History Musculoskeletal: No Pertinent History Male Surgical History: No Pertinent History Other Surgical History: Had Surgery on bleeding Ulcer - Social History Smoking Status: Current every day smoker How long have you smoked: yrs Exposure to second hand smoke: Yes Alcohol Use: Chronic (daily throughout the day including work time) Drug Use: none Patient Lives Alone: No Significant Family History: no pertinent family hx - Nursing Vital Signs Nursing Vital Signs: Initial Vital Signs Temperature 98.3 F 04/23/21 17:24 Pulse Rate 82 04/23/21 17:24 Blood Pressure 175/87 04/23/21 17:24 O2 Sat by Pulse Oximetry 99 04/23/21 17:24 Pain Scale Pain Intensity 3 - Physical Exam General Appearance: no apparent distress, alert Eye Exam: PERRL/EOMI Ears, Nose, Throat Exam: normal ENT inspection, pharynx normal Neck Exam: normal inspection, supple, full range of motion Respiratory Exam: normal breath sounds, lungs clear Cardiovascular Exam: regular rate/rhythm, normal heart sounds Gastrointestinal/Abdomen Exam: soft, normal bowel sounds, No tenderness, No guarding Back Exam: normal inspection, normal range of motion Extremity Exam: normal inspection, normal range of motion, pelvis stable Neurologic Exam: alert, 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, cooperative, editorial cartoonist II-XII nml as tested Skin Exam: normal color SpO2 Interpretation: normal, O2 applied SpO2: 96 O2 Delivery: Nasal Cannula - Course EKG Interpreted by Me: RATE (76), Sinus Rhythm, NORMAL AXIS, NORMAL INTERVALS, Non-specific ST Changes Ordered Tests: Active Orders 24 hr Category Date Time Status IV Insertion STAT Care 04/23/21 17:51 Active NPO (ED) STAT Care 04/23/21 17:51 Active ABDOMEN AND PELVIS W/0 CONTRAS [CT] Stat Exams 04/23/21 17:51 Taken CBC W DIFF Stat Lab 04/23/21 18:25 Completed CMP Stat Lab 04/23/21 18:25 Completed LIPASE Stat Lab 04/23/21 18:25 Completed UA W/RFX UR CULTURE Stat Lab 04/23/21 17:51 Ordered Medication Summary Generic Name Dose Route Start Last Admin Trade Name Freq PRN Reason Stop Dose Admin Sodium Chloride 1,000 mls @ 100 mls/hr 04/23/21 18:00 04/23/21 18:22 Sodium Chloride 0.9% 1000 Ml IV 05/23/21 17:59 100 mls/hr .Q10H ALYSSA Administration Discontinued Medications Generic Name Dose Route Start Last Admin Trade Name Freq PRN Reason Stop Dose Admin Morphine Sulfate 4 mg 04/23/21 17:51 04/23/21 18:28 Morphine Sulfate 4 Mg/Ml Injection IV 04/23/21 17:52 4 mg STAT ONE Administration Morphine Sulfate Confirm 04/23/21 18:18 Morphine Sulfate 4 Mg/Ml Injection Administered 04/23/21 18:19 Dose 4 mg .ROUTE .STK-MED ONE Ondansetron HCl 4 mg 04/23/21 17:51 04/23/21 18:24 Ondansetron Hcl 4 Mg/2 Ml Vial IV 04/23/21 17:52 4 mg STAT ONE Administration Ondansetron HCl Confirm 04/23/21 18:18 Ondansetron Hcl 4 Mg/2 Ml Vial Administered 04/23/21 18:19 Dose 4 mg .ROUTE .STK-MED ONE Lab/Rad Data: Laboratory Result Diagrams 04/23/21 18:25 04/23/21 18:25 Laboratory Results 04/23/21 04/23/21 Range/Units 18:25 18:25 WBC 12.2 H (4.0-10.5) K/mm3 RBC 4.16 (4.1-5.6) M/mm3 Hgb 11.8 L (12.5-18.0) gm/dl Hct 39.4 L (42-50) % MCV 94.7 (78-100) fl MCH 28.4 (26-32) pg MCHC 29.9 L (32-36) g/dl RDW 16.1 H (11.5-14.0) % Plt Count 258 (150-450) K/mm3 MPV 9.3 (7.5-11.0) fl Gran % 73.2 H (36.0-66.0) % Eos # (Auto) 0.10 (0-0.5) Absolute Lymphs (auto) 2.22 (1.0-4.6) Absolute Monos (auto) 0.92 (0.0-1.3) Lymphocytes % 18.2 L (24.0-44.0) % Monocytes % 7.6 (0.0-12.0) % Eosinophils % 0.8 (0.00-5.0) % Basophils % 0.2 (0.0-0.4) % Absolute Granulocytes 8.91 H (1.4-6.9) Basophils # 0.02 (0-0.4) Sodium 136 L (137-145) mmol/L Potassium 3.2 L (3.5-5.1) mmol/L Chloride 90 L (98-107) mmol/L Carbon Dioxide 39 H (22-30) mmol/L Anion Gap 9.9 (5-15) MEQ/L BUN 20 (9-20) mg/dL Creatinine 0.98 (0.66-1.25) mg/dL Estimated GFR > 60.0 ML/MIN Glucose 130 H (74-106) mg/dL Calcium 9.4 (8.4-10.2) mg/dL Total Bilirubin 0.50 (0.2-1.3) mg/dL AST 29 (17-59) U/L ALT 22 (0-50) U/L Alkaline Phosphatase 54 (38-126) U/L Serum Total Protein 6.5 (6.3-8.2) g/dL Albumin 4.0 (3.5-5.0) g/dL Lipase 207 (23-300) U/L - Progress Progress: improved Progress Note: 04/23/21 19:54 Is given fluid bolus along with symptomatic treatment for pain and nausea, on reevaluation asymptomatic. Grossly unremarkable work-up for acute abdomen including CT abdomen pelvis. His symptoms could be secondary to gastritis with his history of daily alcohol use and heavy tobacco. I would give him Zofran to take as needed along with Protonix and Carafate. Discussed signs symptoms of worsening needing return to ER which he seems understanding. Stable for discharge. Counseled pt/family regarding: lab results, diagnosis, need for follow-up, rad results, smoking cessation - Departure Departure Disposition: Home Clinical Impression: Abdominal pain, Nausea & vomiting Condition: Stable Critical Care Time: No Referrals: DOCTOR,NO FAMILY [Primary Care Provider] - Follow up/PCP as directed DAVID WATERS MD [ACTIVE STAFF] - Follow up/PCP as directed (In 2 days for reevaluation) Instructions: Acute Abdomen (Belly Pain), Adult (DC) Additional Instructions: Cut down on your smoking and drinking. Drink plenty of fluids. Take Zofran/Tylenol as needed. Follow-up with primary care for reevaluation. Return to ER for any worsening. Prescriptions: Sucralfate 1 gm [Carafate 1 GM] 1 g PO ACHS #30 tablet ondansetron HCL [Zofran] 4 mg PO Q6H PRN #10 tablet PRN Reason: Nausea
[2021-04-23 20:05] VITALS: BP 149/86; PULSE 74; O2SAT 97
--- NOTE | 2021-04-23 20:05 | XRAY ---
Indication: Upper abdomen pain 1 week. Multiple contiguous axial images obtained through the abdomen and pelvis without contrast. Comparison: March 01, 2019. Lung bases again demonstrates pulmonary emphysema with minimal fibrosis/scarring. New tiny right lower lobe calcified granuloma. No infiltrate or effusion. Heart not enlarged. Noncontrasted stomach and bowel loops are nonobstructed. Normal air-filled appendix. There is now moderate diffuse scattered colonic fecal debris throughout. No free fluid/air. Mid abdomen demonstrates what appears to be new aneurysm coils producing beam artifact. Remaining liver, gallbladder, pancreas, spleen, adrenal glands, kidneys, ureters, and bladder are unremarkable for noncontrast exam. Moderate scattered aortoiliac calcifications without AAA. Osseous structures intact with mild osteopenia and mild/moderate degenerative changes throughout the spine. Impression: 1. New diffuse fecal stasis. 2. New mid abdomen aneurysm coils. 3. Incidental pulmonary emphysema, right lower lobe calcified granuloma, and chronic bony findings. Comment: Preliminary interpretation made by C. No critical discrepancy.
== END 2021-04-23 20:18 | disposition home or self-care (01) ==
LOC: ED 17:23
DX: R10.13 Epigastric pain (principal); R11.2 Nausea with vomiting, unspecified; J96.10 Chronic respiratory failure, unspecified whether with hypoxia or hypercapnia; Z99.81 Dependence on supplemental oxygen; Z72.0 Tobacco use; J42 Unspecified chronic bronchitis; Z72.89 Other problems related to lifestyle
CPT/HCPCS: 36000; 36415; 74176; 80053; 83690; 85025; 96374; 96375; 99284; J2270; J2405

== ENCOUNTER 2021-04-25 15:01 | Observation (INO) | payer MEDICARE, OTHER ==
[2021-04-25] MEDS ORDERED: PROTONIX 40 MG IV IV ONE ×2 (15:38→18:46)
[2021-04-25] MEDS ORDERED: Tums EX 750 MG PO PRN (15:39)
[2021-04-25] MEDS ORDERED: Hydromorphone 1 mg/ml Injection IV PRN (15:41)
[2021-04-25 16:02] LABS: Absolute Neutrophil Ct (ANC) 10.49 (1.4-6.9); BASOPHIL % 0.2 % (0.0-0.4); Basophil (Absolute #) 0.02 (0-0.4); Eosinophil % 0.5 % (0.00-5.0); Eosinophil (Absolute #) 0.07 (0-0.5); Hematocrit 36.5 % (42-50); Lymphocyte (Absolute #) 1.53 (1.0-4.6); Lymphocytes % 11.8 % (24.0-44.0); Mean Cell Volume 94.3 fl (78-100); Mean Corpuscular Hemoglobin 28.4 pg (26-32); Mean Corpuscular Hgb Concent. 30.1 g/dl (32-36); Monocyte (Absolute #) 0.89 (0.0-1.3); Monocytes % 6.8 % (0.0-12.0); Neutrophil % 80.7 % (36.0-66.0); Platelet Count 220 K/mm3 (150-450); Red Blood Count 3.87 M/mm3 (4.1-5.6); Red Cell Distribution Width 15.9 % (11.5-14.0)
[2021-04-25] MEDS ORDERED: PROVENTIL 2.5 MG/3 ML NEB IH PRN (16:15)
[2021-04-25] MEDS: Carafate 1 GM PO SCH ×2 (16:30→22:21)
[2021-04-25 16:45] LABS: ALKALINE PHOSPHATASE 55 U/L (38-126); AMYLASE 65 U/L (30-110); ANION GAP 9.4 MEQ/L (5-15); BLOOD UREA NITROGEN 19 mg/dL (9-20); CHLORIDE 92 mmol/L (98-107); Calcium 9.2 mg/dL (8.4-10.2); Carbon Dioxide 36 mmol/L (22-30); Creatinine 1 0.95 mg/dL (0.66-1.25); EST GLOMERULAR FILTRATION RATE > 60.0 ML/MIN; Glucose 89 mg/dL (74-106); Potassium 3.4 mmol/L (3.5-5.1); SGOT/AST 27 U/L (17-59); SGPT/ALT 19 U/L (0-50); SODIUM 134 mmol/L (137-145); Total Protein 6.8 g/dL (6.3-8.2)
[2021-04-25 16:49] LABS: INFLUENZA A NEGATIVE (NEGATIVE); INFLUENZA B NEGATIVE (NEGATIVE); RESPIRATORY SYNCTIAL VIRUS NEGATIVE (Negative); SARS-CoV-2 Xpert Express NEGATIVE (NEGATIVE)
[2021-04-25] MEDS: Dextrose 5% -0.45 NaCl 1000 ML 1,000 ML IV SCH ×2 (16:51→23:39)
--- NOTE | 2021-04-25 16:56 | XRAY ---
Indication: Abdomen pain. AAA. Conventional contrast enhanced CTA abdomen/pelvis performed using 100 cc Isovue 370 contrast. Two-dimensional sagittal and coronal reformatted images obtained. Additional 3-dimensional reformatted images obtained using a separate workstation. Comparison: CT abdomen/pelvis without contrast April 23, 2021. Abdominal aorta again demonstrates moderate scattered arteriosclerotic disease without aneurysm/dissection. Normal branching celiac, superior mesenteric, and inferior mesenteric arteries. Minimal calcifications at the origin of the celiac and inferior mesenteric arteries without critical stenosis or obstruction. Remaining celiac, superior mesenteric, and inferior mesenteric arteries are normal in CTA appearance. A single renal artery supplies each kidney without critical stenosis, obstruction, or AV malformation. Minimal scattered arteriosclerotic calcifications seen in the iliac arteries bilaterally. No focal critical stenosis/obstruction. Noncontrasted stomach and bowel loops remain nonobstructed again with moderate diffuse fecal debris throughout more than before. No free fluid/air. Head of the pancreas demonstrates stable aneurysm coils producing beam artifact. No free fluid/air. Remaining liver, gallbladder, pancreas, spleen, adrenal glands, kidneys, ureters, and bladder are unremarkable. No pathological retroperitoneal lymphadenopathy. Lung bases again demonstrates pulmonary emphysema and minimal scattered fibrosis/scarring. Heart is not enlarged. Osseous structures intact again with osteopenia and mild/moderate degenerative changes throughout the spine. Impression: 1. CTA abdomen/pelvis negative for AAA/dissection. Scattered aortoiliac arteriosclerotic calcifications including origins of the celiac/inferior mesenteric arteries similar in appearance to CT abdomen/pelvis 2 days ago. 2. Worsening moderate diffuse fecal stasis. 3. Again incidental pulmonary emphysema, midabdomen aneurysm coils, and chronic bony findings.
[2021-04-25] MEDS: Advair Hfa 115/21 Common canister IH SCH (18:35)
[2021-04-26 05:30] LABS: Absolute Neutrophil Ct (ANC) 6.07 (1.4-6.9); BASOPHIL % 0.3 % (0.0-0.4); Basophil (Absolute #) 0.03 (0-0.4); Eosinophil % 1.6 % (0.00-5.0); Eosinophil (Absolute #) 0.14 (0-0.5); Hematocrit 32.4 % (42-50); Hemoglobin 9.8 gm/dl (12.5-18.0); Lymphocyte (Absolute #) 1.92 (1.0-4.6); Lymphocytes % 21.4 % (24.0-44.0); Mean Cell Volume 94.7 fl (78-100); Mean Corpuscular Hemoglobin 28.7 pg (26-32); Mean Corpuscular Hgb Concent. 30.2 g/dl (32-36); Mean Platelet Volume 9.1 fl (7.5-11.0); Monocytes % 8.9 % (0.0-12.0); Neutrophil % 67.8 % (36.0-66.0); Platelet Count 191 K/mm3 (150-450); Red Blood Count 3.42 M/mm3 (4.1-5.6); Red Cell Distribution Width 15.8 % (11.5-14.0)
[2021-04-26 06:11] LABS: ALBUMIN 3.1 g/dL (3.5-5.0); ALKALINE PHOSPHATASE 43 U/L (38-126); ANION GAP 5.8 MEQ/L (5-15); BLOOD UREA NITROGEN 9 mg/dL (9-20); CHLORIDE 95 mmol/L (98-107); Carbon Dioxide 33 mmol/L (22-30); Creatinine 1 0.71 mg/dL (0.66-1.25); EST GLOMERULAR FILTRATION RATE > 60.0 ML/MIN; Glucose 107 mg/dL (74-106); PROCALCITONIN 0.058 ng/mL (0.030-0.080); Potassium 3.1 mmol/L (3.5-5.1); SGOT/AST 21 U/L (17-59); SGPT/ALT 16 U/L (0-50); SODIUM 131 mmol/L (137-145); Total Protein 5.4 g/dL (6.3-8.2)
[2021-04-26] MEDS: Advair Hfa 115/21 Common canister IH SCH (07:34)
[2021-04-26] MEDS: Dextrose 5% -0.45 NaCl 1000 ML 1,000 ML IV SCH (07:43)
[2021-04-26] MEDS: Carafate 1 GM PO SCH (07:43)
[2021-04-26 07:50] VITALS: BP 138/85
[2021-04-26] MEDS ORDERED: Protonix 40MG Tablet PO SCH (10:00)
[2021-04-26 10:27] VITALS: PULSE 78; O2SAT 96
[2021-04-26] MEDS ORDERED: Carafate 1 GM PO SCH (11:30)
--- NOTE | 2021-04-26 11:43 | SSS ---
DISCHARGE DIAGNOSIS: GASTRITIS. CHIEF COMPLAINT: Epigastric pain. HISTORY OF PRESENT ILLNESS: The patient is a 65-year-old white male patient who had been having problems with epigastric pain over the past week or so. He was seen in the emergency room two days prior to admission at which time he was given a prescription for Protonix and Zofran, which he not fill. The patient was seen in my office on 04/25/2021 and felt the need to be admitted to the hospital. He was having quite a lot of discomfort in his epigastric region. PAST MEDICAL/SURGICAL HISTORY: He has chronic obstructive pulmonary disease end-stage. HOME MEDICATIONS: Albuterol, Asmanex and Stiolto Respimat inhaler as well as PRN Albuterol. The patient had also been prescribed pantoprazole and sucralfate, which he has not filled to this point. ALLERGIES: NKDA. PHYSICAL EXAMINATION: His vital signs on admission showed his temperature to be 98.1F, pulse was initially 110 and dropped to 77 after fluid hydration. His respiratory rate was 18. Blood pressure ranging from 129/59 to 169/83. His pulse ox was in the mid to high 90's on supplemental oxygen, without oxygen he was running in 90% at rest. He was afebrile with stable vital signs. HEENT: Normocephalic, atraumatic. He is wearing oxygen supplementation per nasal cannula. Oropharynx is slightly dry. NECK: Supple without lymphadenopathy, thyromegaly or JVD. CHEST: Essentially clear to auscultation. HEART: Regular rate and rhythm without murmurs, rubs or gallops. ABDOMEN: Tender in the epigastric region otherwise soft with no palpable masses were felt. EXTREMITIES: Without cyanosis or clubbing. There is trace edema over his lower extremities. NEUROLOGIC: He is alert and oriented x3 with no focal deficits. LAB DATA AND TESTS: Revealed a white count that was somewhat elevated at 13.0. His hemoglobin was 11.0 and PLT count 220,000. His sugar was 89, BUN 19, creatinine 0.95. His electrolytes were mildly abnormal with potassium 3.4 and sodium 134. Amylase, lipase and liver enzymes were all normal. His COVID, RSV and influenza tests were negative. HOSPITAL COURSE: By the next morning his white count was down to 9,000, hemoglobin 9.8, PLT count 191,000. He was slightly low on his sodium 131 and potassium 3.1. His liver enzymes were normal. Procalcitonin was 0.058 which was essentially normal in our lab. CT scan again in comparison to the one through the emergency room showed him to be negative for aortic dissection, scattered aortic calcifications, noncontrasted bowel loops remain nonobstructed with moderate fecal debris and no free air but the pancreas demonstrated some stable aneurysm coils producing beam artifact. Otherwise his pancreas, spleen, adrenal glands, kidneys, ureters and bladder were all unremarkable with no pathological retroperitoneal lymphadenopathy. The patient was given IV fluids and some oral antacids and pantoprazole IV. By the next morning the patient was feeling much better. He reportedly said "Yeah I know I need to go get my medications" and he will get them filled for the Protonix and cotton picker some antacid with simethicone products to take as an outpatient. He will follow up in the office in one week. At this time he is felt to be ready for discharge home on the oral Protonix, antacid and to continue the use of his inhaler medications. He will be seen in the office in one week for follow up.
== END 2021-04-26 10:33 | disposition home or self-care (01) ==
LOC: MED SURG 15:01
PROVIDERS: ADMIT Family Medicine; ATTEND Family Medicine
DX: K29.70 Gastritis, unspecified, without bleeding (principal); J44.9 Chronic obstructive pulmonary disease, unspecified; Z20.828 Contact with and (suspected) exposure to other viral communicable diseases; Z79.899 Other long term (current) drug therapy
CPT/HCPCS: 0241U; 36415; 74174; 80053; 82150; 83690; 84145; 85025; 93268; 94640; 94760; G0378; J1170; J7609; A9270-GY

== ENCOUNTER 2021-05-01 20:21 | Emergency (ER) | payer MEDICARE, OTHER ==
[2021-05-01] MEDS ORDERED: PROTONIX 40 MG IV IV ONE (21:38)
[2021-05-01] MEDS ORDERED: Hydromorphone 1 mg/ml Injection ONE (21:39)
[2021-05-01] MEDS ORDERED: Reglan 10 MG/2 ML ONE (21:40)
[2021-05-01] MEDS ORDERED: Sodium Chloride 0.9% 1000 ML 1,000 ML ONE (21:40)
[2021-05-01] MEDS: Sodium Chloride 0.9% 1000 ML 1,000 ML IV STA (21:41)
[2021-05-01] MEDS: PROTONIX 40 MG IV IV ONE (21:42)
[2021-05-01] MEDS: Reglan 10 MG/2 ML IV ONE (21:42)
[2021-05-01] MEDS: Hydromorphone 1 mg/ml Injection IV ONE (21:42)
[2021-05-01 22:10] LABS: Absolute Neutrophil Ct (ANC) 5.94 (1.4-6.9); BASOPHIL % 0.4 % (0.0-0.4); Basophil (Absolute #) 0.04 (0-0.4); Eosinophil % 2.3 % (0.00-5.0); Eosinophil (Absolute #) 0.21 (0-0.5); Hematocrit 33.9 % (42-50); Hemoglobin 10.1 gm/dl (12.5-18.0); Lymphocyte (Absolute #) 2.26 (1.0-4.6); Lymphocytes % 24.8 % (24.0-44.0); Mean Cell Volume 95.2 fl (78-100); Mean Corpuscular Hemoglobin 28.4 pg (26-32); Mean Corpuscular Hgb Concent. 29.8 g/dl (32-36); Mean Platelet Volume 9.5 fl (7.5-11.0); Monocyte (Absolute #) 0.66 (0.0-1.3); Monocytes % 7.2 % (0.0-12.0); Neutrophil % 65.3 % (36.0-66.0); Platelet Count 259 K/mm3 (150-450); Red Blood Count 3.56 M/mm3 (4.1-5.6); Red Cell Distribution Width 16.8 % (11.5-14.0); White Blood Count 9.1 K/mm3 (4.0-10.5)
[2021-05-01 22:19] LABS: INR 0.97 (0.8-3.0); PROTIME 11.5 SECONDS (9.4-12.5)
[2021-05-01 22:23] LABS: ALBUMIN 3.8 g/dL (3.5-5.0); ALKALINE PHOSPHATASE 61 U/L (38-126); AMYLASE 82 U/L (30-110); ANION GAP 9.9 MEQ/L (5-15); BLOOD UREA NITROGEN 11 mg/dL (9-20); CHLORIDE 94 mmol/L (98-107); Calcium 8.8 mg/dL (8.4-10.2); Carbon Dioxide 37 mmol/L (22-30); Creatinine 1 0.84 mg/dL (0.66-1.25); EST GLOMERULAR FILTRATION RATE > 60.0 ML/MIN; Glucose 105 mg/dL (74-106); LIPASE 320 U/L (23-300); Potassium 3.3 mmol/L (3.5-5.1); SGOT/AST 24 U/L (17-59); SGPT/ALT 18 U/L (0-50); SODIUM 138 mmol/L (137-145); Total Protein 6.3 g/dL (6.3-8.2)
[2021-05-01 22:59] LABS: Appearance CLEAR (CLEAR); Bilirubin NEGATIVE (NEGATIVE); Blood NEGATIVE Ery/ul (0-5); Glucose NEGATIVE (NEGATIVE); Ketones NEGATIVE (NEGATIVE); Leukocyte Esterase NEGATIVE (NEGATIVE); Mucus SLIGHT /HPF (NEGATIVE); Nitrite NEGATIVE (NEGATIVE); Protein,Urine Dip NEGATIVE (Negative); Specific Gravity 1.006 (1.005-1.025); Urobilinogen NEGATIVE mg/dL (0-1)
--- NOTE | 2021-05-01 23:08 | ERPHSYRPT ---
- History of Present Illness Time Seen by Provider: 05/01/21 20:55 Historian: patient Exam Limitations: no limitations Patient Subjective Stated Complaint: Patient c/o abdominal pain that he states he has had for the past several weeks. Triage Nursing Assessment: Patient walked back to ED without difficulties. Patient is alert and oriented and answering questions appropriately. He is wearing 02 at 3L which is his normal; wears 02 at all times at home. Abdomen is soft but tender just above the upper abdomenal quads. Bowel sounds active in all 4 quads. Physician History: Patient is a 65-year-old male who presents with a complaint of abdominal pain. He has had trouble on and off for the past 2 weeks and was recently briefly hospitalized for gastritis. He has an appointment to follow-up with Dr. Guerra on Sunday he has been having some dry heaves today and some pain in the epigastric area.. Patient reports that his bowel movements have been normal and he has had dry heaves but no vomiting Timing/Duration: week(s) (2) Activities at Onset: none Quality: cramping Abdominal Pain Onset Location: epigastric Pain Radiation: no radiation Severity of Pain-Max: moderate Severity of Pain-Current: none Modifying Factors: Improves With: vomiting Associated Symptoms: nausea Allergies/Adverse Reactions: No Known Drug Allergies Allergy (Verified 05/01/21 20:48) Home Medications: Albuterol Sulfate [Proair Hfa] 2 puff IH UD 03/03/19 [History] Mometasone Furoate [Asmanex] 1 puff IH BID 03/03/19 [History] Tiotropium Br/Olodaterol HCl [Stiolto Respimat Inhal [place]] 2 puff IH QAM 03/03/19 [History] PANTOPRAZOLE 40 mg Tablet [Protonix 40MG Tablet] 40 mg PO QAM 11/18/20 [History] Albuterol 2.5 mg/3 ml Neb [Proventil 2.5 mg/3 ml Neb] 2.5 mg IH Q4-6HPRN PRN 04/14/21 [History] Hx Tetanus, Diphtheria Vaccination/Date Given: Yes (unknown) Hx Influenza Vaccination/Date Given: Yes Hx Pneumococcal Vaccination/Date Given: No Immunizations Up to Date: Yes Travel Risk - International Travel Have you traveled outside of the country in past 3 weeks: No - Coronavirus Screening Are you exhibiting any of the following symptoms?: Yes Symptoms: Shortness of Breath Close contact with a COVID-19 positive Pt in past 14-21 Days: No - Vaccine Status Have you recieved a Covid-19 vaccination: Yes 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 - Vaccination Dates Date of 2cond Vaccination (if applicable): 08/18/20 Comment: BOOSTER 04/03/21 - Review of Systems Constitutional: No Fever, No Chills Eyes: No Symptoms Ears, Nose, & Throat: No Symptoms Respiratory: No Cough, No Dyspnea Cardiac: No Chest Pain, No Edema, No Syncope Abdominal/Gastrointestinal: Abdominal Pain, Nausea, Vomiting, No Diarrhea Genitourinary Symptoms: No Dysuria Musculoskeletal: No Symptoms, No Back Pain, No Neck Pain Skin: No Symptoms, No Rash Neurological: No Symptoms, No Dizziness, No Focal Weakness, No Sensory Changes Psychological: No Symptoms Endocrine: No Symptoms All Other Systems: Reviewed and Negative - Past Medical History Pertinent Past Medical History: Yes Neurological History: No Pertinent History ENT History: No Pertinent History Cardiac History: No Pertinent History Respiratory History: Bronchitis, COPD, Pneumonia Endocrine Medical History: No Pertinent History Musculoskeletal History: Arthritis, Other GI Medical History: GERD, GI Bleed, Ulcer, Other History: No Pertinent History Psycho-Social History: No Pertinent History Male Reproductive Disorders: No Pertinent History Other Medical History: few fractures - Past Surgical History Past Surgical History: Yes Neuro Surgical History: No Pertinent History Cardiac: No Pertinent History Respiratory: No Pertinent History Gastrointestinal: Other Genitourinary: No Pertinent History Musculoskeletal: No Pertinent History Male Surgical History: No Pertinent History Other Surgical History: Had Surgery on bleeding Ulcer - Social History Smoking Status: Current every day smoker How long have you smoked: Years Exposure to second hand smoke: Yes Alcohol Use: Chronic (daily throughout the day including work time) Drug Use: none Patient Lives Alone: No Significant Family History: no pertinent family hx - Nursing Vital Signs Nursing Vital Signs: Initial Vital Signs Temperature 98.1 F 05/01/21 20:49 Pulse Rate 89 05/01/21 20:49 Respiratory Rate 26 H 05/01/21 20:49 Blood Pressure 172/94 05/01/21 20:49 O2 Sat by Pulse Oximetry 99 05/01/21 20:49 Pain Scale Pain Intensity 3 - Physical Exam General Appearance: mild distress, alert Eye Exam: PERRL/EOMI, eyes nml inspection Ears, Nose, Throat Exam: normal ENT inspection, pharynx normal, moist mucous membranes Neck Exam: normal inspection, non-tender, supple, full range of motion Respiratory Exam: normal breath sounds, lungs clear, No respiratory distress Cardiovascular Exam: regular rate/rhythm, normal heart sounds Gastrointestinal/Abdomen Exam: normal bowel sounds, tenderness (Tenderness without guarding or rebound in the epigastric area), No mass Back Exam: normal inspection, normal range of motion, No CVA tenderness, No vertebral tenderness Extremity Exam: normal inspection, normal range of motion, pelvis stable Neurologic Exam: alert, 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, cooperative, normal mood/affect, nml cerebellar function, sensation nml, No motor deficits Skin Exam: normal color, warm, dry SpO2: 100 - Course Nursing assessment & vital signs reviewed: Yes - Radiology Exams Chest X-ray Interpretation: Interpreted by me, Other (Chest x-ray shows no acute process but there are chronic changes consistent with COPD) - CT Exams Abdomen/Pelvis CT Interpretation: Tele-radiologist Report (The report was concerning for partial small bowel obstruction but nothing clinically and the patient's history would suggest that) Ordered Tests: Active Orders 24 hr Category Date Time Status IV Insertion STAT Care 05/01/21 21:29 Active ABDOMEN AND PELVIS W/0 CONTRAS [CT] Stat Exams 05/01/21 21:29 Taken CHEST 1 VIEW (PORTABLE) Stat Exams 05/01/21 21:29 Taken AMYLASE Stat Lab 05/01/21 22:05 Completed CBC W DIFF Stat Lab 05/01/21 22:05 Completed CMP Stat Lab 05/01/21 22:05 Completed LIPASE Stat Lab 05/01/21 22:05 Completed Lactic Acid Stat Lab 05/01/21 21:29 Completed PROTIME WITH INR Stat Lab 05/01/21 22:05 Completed UA W/RFX UR CULTURE Stat Lab 05/01/21 22:41 Completed Medication Summary Discontinued Medications Generic Name Dose Route Start Last Admin Trade Name Freq PRN Reason Stop Dose Admin Albuterol Sulfate 2.5 mg 05/01/21 23:01 Albuterol Sulfate 2.5 Mg/3 Ml Neb IH 05/01/21 23:02 STAT ONE Hydromorphone HCl 0.5 mg 05/01/21 21:29 05/01/21 21:42 Hydromorphone 1 Mg/1ml Inj 1 Mg/Ml Syringe IV 05/01/21 21:30 0.5 mg STAT ONE Administration Hydromorphone HCl Confirm 05/01/21 21:39 Hydromorphone 1 Mg/1ml Inj 1 Mg/Ml Syringe Administered 05/01/21 21:40 Dose 1 mg .ROUTE .STK-MED ONE Sodium Chloride 1,000 mls @ 999 mls/hr 05/01/21 21:29 05/01/21 22:45 Sodium Chloride 0.9% 1000 Ml IV 05/01/21 22:29 Infused .Q1H1M STA Infusion Sodium Chloride Confirm 05/01/21 21:40 Sodium Chloride 0.9% 1000 Ml Administered 05/01/21 21:41 Dose 1,000 mls @ ud .ROUTE .STK-MED ONE Metoclopramide HCl 10 mg 05/01/21 21:29 05/01/21 21:42 Metoclopramide Hcl 10 Mg/2 Ml Vial IV 05/01/21 21:30 10 mg STAT ONE Administration Metoclopramide HCl Confirm 05/01/21 21:40 Metoclopramide Hcl 10 Mg/2 Ml Vial Administered 05/01/21 21:41 Dose 10 mg .ROUTE .STK-MED ONE Pantoprazole Sodium 40 mg 05/01/21 21:29 05/01/21 21:42 Pantoprazole 40 Mg Vial IV 05/01/21 21:30 40 mg STAT ONE Administration Pantoprazole Sodium Confirm 05/01/21 21:38 Pantoprazole 40 Mg Vial Administered 05/01/21 21:39 Dose 40 mg IV .STK-MED ONE Lab/Rad Data: Laboratory Result Diagrams 05/01/21 22:05 05/01/21 22:05 Laboratory Results 05/01/21 05/01/21 05/01/21 Range/Units 22:41 22:05 22:05 WBC (4.0-10.5) K/mm3 RBC (4.1-5.6) M/mm3 Hgb (12.5-18.0) gm/dl Hct (42-50) % MCV (78-100) fl MCH (26-32) pg MCHC (32-36) g/dl RDW (11.5-14.0) % Plt Count (150-450) K/mm3 MPV (7.5-11.0) fl Gran % (36.0-66.0) % Eos # (Auto) (0-0.5) Absolute Lymphs (auto) (1.0-4.6) Absolute Monos (auto) (0.0-1.3) Lymphocytes % (24.0-44.0) % Monocytes % (0.0-12.0) % Eosinophils % (0.00-5.0) % Basophils % (0.0-0.4) % Absolute Granulocytes (1.4-6.9) Basophils # (0-0.4) PT 11.5 (9.4-12.5) SECONDS INR 0.97 (0.8-3.0) Sodium 138 (137-145) mmol/L Potassium 3.3 L (3.5-5.1) mmol/L Chloride 94 L (98-107) mmol/L Carbon Dioxide 37 H (22-30) mmol/L Anion Gap 9.9 (5-15) MEQ/L BUN 11 (9-20) mg/dL Creatinine 0.84 (0.66-1.25) mg/dL Estimated GFR > 60.0 ML/MIN Glucose 105 (74-106) mg/dL Lactic Acid (0.4-2.0) Calcium 8.8 (8.4-10.2) mg/dL Total Bilirubin 0.30 (0.2-1.3) mg/dL AST 24 (17-59) U/L ALT 18 (0-50) U/L Alkaline Phosphatase 61 (38-126) U/L Serum Total Protein 6.3 (6.3-8.2) g/dL Albumin 3.8 (3.5-5.0) g/dL Amylase 82 (30-110) U/L Lipase 320 H (23-300) U/L Urine Color STRAW (YELLOW) Urine Appearance CLEAR (CLEAR) Urine pH 8.0 (5-6) Ur Specific [place] 1.006 (1.005-1.025) Urine Protein NEGATIVE (Negative) Urine Ketones NEGATIVE (NEGATIVE) Urine Blood NEGATIVE (0-5) Luther/ul Urine Nitrite NEGATIVE (NEGATIVE) Urine Bilirubin NEGATIVE (NEGATIVE) Urine Urobilinogen NEGATIVE (0-1) mg/dL Ur Leukocyte Esterase NEGATIVE (NEGATIVE) Urine WBC (Auto) NONE (0-5) /HPF Urine RBC (Auto) NONE (0-2) /HPF U Epithel Cells (Auto) NONE (FEW) /HPF Urine Bacteria (Auto) NONE (NEGATIVE) /HPF Urine Mucus (Auto) SLIGHT (NEGATIVE) /HPF Urine Culture Reflexed NO (NO) Urine Glucose NEGATIVE (NEGATIVE) mg/dL 05/01/21 05/01/21 Range/Units 22:05 21:29 WBC 9.1 (4.0-10.5) K/mm3 RBC 3.56 L (4.1-5.6) M/mm3 Hgb 10.1 L (12.5-18.0) gm/dl Hct 33.9 L (42-50) % MCV 95.2 (78-100) fl MCH 28.4 (26-32) pg MCHC 29.8 L (32-36) g/dl RDW 16.8 H (11.5-14.0) % Plt Count 259 (150-450) K/mm3 MPV 9.5 (7.5-11.0) fl Gran % 65.3 (36.0-66.0) % Eos # (Auto) 0.21 (0-0.5) Absolute Lymphs (auto) 2.26 (1.0-4.6) Absolute Monos (auto) 0.66 (0.0-1.3) Lymphocytes % 24.8 (24.0-44.0) % Monocytes % 7.2 (0.0-12.0) % Eosinophils % 2.3 (0.00-5.0) % Basophils % 0.4 (0.0-0.4) % Absolute Granulocytes 5.94 (1.4-6.9) Basophils # 0.04 (0-0.4) PT (9.4-12.5) SECONDS INR (0.8-3.0) Sodium (137-145) mmol/L Potassium (3.5-5.1) mmol/L Chloride (98-107) mmol/L Carbon Dioxide (22-30) mmol/L Anion Gap (5-15) MEQ/L BUN (9-20) mg/dL Creatinine (0.66-1.25) mg/dL Estimated GFR ML/MIN Glucose (74-106) mg/dL Lactic Acid 1.1 (0.4-2.0) Calcium (8.4-10.2) mg/dL Total Bilirubin (0.2-1.3) mg/dL AST (17-59) U/L ALT (0-50) U/L Alkaline Phosphatase (38-126) U/L Serum Total Protein (6.3-8.2) g/dL Albumin (3.5-5.0) g/dL Amylase (30-110) U/L Lipase (23-300) U/L Urine Color (YELLOW) Urine Appearance (CLEAR) Urine pH (5-6) Ur Specific [place] (1.005-1.025) Urine Protein (Negative) Urine Ketones (NEGATIVE) Urine Blood (0-5) Luther/ul Urine Nitrite (NEGATIVE) Urine Bilirubin (NEGATIVE) Urine Urobilinogen (0-1) mg/dL Ur Leukocyte Esterase (NEGATIVE) Urine WBC (Auto) (0-5) /HPF Urine RBC (Auto) (0-2) /HPF U Epithel Cells (Auto) (FEW) /HPF Urine Bacteria (Auto) (NEGATIVE) /HPF Urine Mucus (Auto) (NEGATIVE) /HPF Urine Culture Reflexed (NO) Urine Glucose (NEGATIVE) mg/dL - Progress Progress: improved Progress Note: 05/01/21 23:09 Patient was asked if he had filled his medicines and he said he had although the history of this patient is that he is pretty noncompliant. He says that he has Protonix at home we will give him some pain medicine to try to help him through till he sees his doctor on Sunday - Departure Departure Disposition: Home Clinical Impression: Gastritis, Enteritis Condition: Stable Critical Care Time: No Referrals: DOCTOR,NO FAMILY [Primary Care Provider] - Follow up/PCP as directed Instructions: Acute Abdomen (Belly Pain), Adult (DC) Prescriptions: Metoclopramide HCl 10 mg [Reglan 10 MG] 10 mg PO Q6H 3 Days #12 tablet
[2021-05-01 23:14] VITALS: BP 176/100
[2021-05-01] MEDS ORDERED: PROVENTIL 2.5 MG/3 ML NEB IH ONE (23:15)
[2021-05-01] MEDS: PROVENTIL 2.5 MG/3 ML NEB IH ONE (23:16)
[2021-05-01] MEDS ORDERED: NORCO 5/325 MG ONE (23:18)
[2021-05-01] MEDS: NORCO 5/325 MG PO ONE (23:19)
[2021-05-01 23:20] VITALS: PULSE 88; O2SAT 99
--- NOTE | 2021-05-02 09:15 | XRAY ---
Indication: Abdomen pain. Multiple contiguous axial images obtained through the abdomen and pelvis without contrast. Comparison: April 25, 2021. Study degraded by mild respiration artifact throughout. Lung bases again demonstrates emphysema and minimal fibrosis/scarring. Heart is not enlarged. Noncontrasted stomach and bowel loops demonstrates new mild fluid distended small bowel loops up to 2.7 cm diameter with air-fluid leveling, ileus versus partial small bowel obstruction. No transition point. There remains moderate fecal debris predominantly in the ascending and transverse colon. No free fluid/air. Mid abdomen demonstrates stable aneurysm coils again producing beam artifact. Remaining liver, gallbladder, pancreas, spleen, adrenal glands, kidneys, ureters, and bladder are unremarkable for noncontrast exam. Stable moderate aortoiliac calcifications without AAA. Impression: 1. Respiration artifact. 2. New fluid distended small bowel loops with air-fluid leveling, ileus versus partial small bowel obstruction. 3. Again moderate diffuse fecal stasis, pulmonary emphysema, and mid abdomen aneurysm coils. Comment: Preliminary interpretation made by C. No critical discrepancy.
--- NOTE | 2021-05-02 09:17 | XRAY ---
Indication: Pain. Comparison: April 15, 2021. Portable apical lordotic chest remains hyperinflated and clear again with a few incidental tiny calcified granulomas. Heart not enlarged. No new/acute findings.
== END 2021-05-01 23:36 | disposition home or self-care (01) ==
LOC: ED 20:21
DX: K29.70 Gastritis, unspecified, without bleeding (principal); K52.9 Noninfective gastroenteritis and colitis, unspecified; J44.9 Chronic obstructive pulmonary disease, unspecified; Z72.0 Tobacco use; Z72.89 Other problems related to lifestyle
CPT/HCPCS: 36000; 36415; 71045; 74176; 80053; 81001; 82150; 83605; 83690; 85025; 85610; 94640; 96360; 96374; 96375; 99284; J1170; J7609; A9270-GY

== ENCOUNTER 2021-05-05 08:12 | Emergency (ER) | payer MEDICARE, OTHER ==
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
[2021-05-05] MEDS ORDERED: Sodium Chloride 0.9% 1000 ML 1,000 ML IV STA (08:24)
[2021-05-05] MEDS ORDERED: Hydromorphone 1 mg/ml Injection IV ONE (08:24)
[2021-05-05] MEDS ORDERED: PROTONIX 40 MG IV IV ONE (08:24)
[2021-05-05] MEDS ORDERED: Zofran 4 MG/2 ML VIAL IV ONE (08:24)
[2021-05-05 08:31] VITALS: BP 162/84; PULSE 93; O2SAT 100
[2021-05-05 08:47] LABS: Absolute Neutrophil Ct (ANC) 5.55 (1.4-6.9); BASOPHIL % 0.4 % (0.0-0.4); Basophil (Absolute #) 0.03 (0-0.4); Eosinophil % 1.8 % (0.00-5.0); Eosinophil (Absolute #) 0.14 (0-0.5); Hematocrit 35.1 % (42-50); Hemoglobin 10.4 gm/dl (12.5-18.0); Lymphocyte (Absolute #) 1.35 (1.0-4.6); Lymphocytes % 17.5 % (24.0-44.0); Mean Cell Volume 95.6 fl (78-100); Mean Corpuscular Hemoglobin 28.3 pg (26-32); Mean Corpuscular Hgb Concent. 29.6 g/dl (32-36); Mean Platelet Volume 8.7 fl (7.5-11.0); Monocyte (Absolute #) 0.64 (0.0-1.3); Monocytes % 8.3 % (0.0-12.0); Platelet Count 257 K/mm3 (150-450); Red Blood Count 3.67 M/mm3 (4.1-5.6); Red Cell Distribution Width 16.7 % (11.5-14.0); White Blood Count 7.7 K/mm3 (4.0-10.5)
[2021-05-05 08:58] LABS: ALKALINE PHOSPHATASE 54 U/L (38-126); AMYLASE 85 U/L (30-110); ANION GAP 9.9 MEQ/L (5-15); BLOOD UREA NITROGEN 10 mg/dL (9-20); CHLORIDE 99 mmol/L (98-107); Calcium 9.2 mg/dL (8.4-10.2); Carbon Dioxide 32 mmol/L (22-30); EST GLOMERULAR FILTRATION RATE > 60.0 ML/MIN; Glucose 170 mg/dL (74-106); LIPASE 197 U/L (23-300); Potassium 3.9 mmol/L (3.5-5.1); SGOT/AST 24 U/L (17-59); SGPT/ALT 19 U/L (0-50); SODIUM 137 mmol/L (137-145); Total Protein 6.9 g/dL (6.3-8.2)
--- NOTE | 2021-05-05 09:26 | XRAY ---
Indication: Abdomen pain, nausea, and vomiting. Multiple contiguous axial images obtained through the abdomen and pelvis without contrast. Comparison: May 01, 2021. Lung bases again hyperinflated with minimal fibrosis/scarring and tiny right lower lobe calcified granuloma. Heart not enlarged. Noncontrasted stomach and bowel loops nonobstructed again with moderate diffuse scattered colonic fecal debris throughout. No free fluid/air. Stable mid abdominal aneurysm coils. Remaining liver, gallbladder, pancreas, spleen, adrenal glands, kidneys, ureters, and bladder are unremarkable for noncontrast exam. Stable moderate aortoiliac calcifications without AAA. Impression: 1. Again chronic lung findings, moderate diffuse fecal stasis, scattered arteriosclerotic disease, and mid abdomen aneurysm coils. 2. No new/acute intra-abdominal/pelvic abnormalities on this noncontrast exam.
== END 2021-05-05 10:38 | disposition home or self-care (01) ==
LOC: ED 08:12
DX: R10.13 Epigastric pain (principal); G89.29 Other chronic pain; J42 Unspecified chronic bronchitis; Z99.81 Dependence on supplemental oxygen; Z72.0 Tobacco use; K21.9 Gastro-esophageal reflux disease without esophagitis
CPT/HCPCS: 36415; 74176; 80053; 82150; 83605; 83690; 84484; 85025; 93005; 99284; G0480; 80307

== ENCOUNTER 2021-05-09 17:00 | Emergency (ER) | payer MEDICARE, OTHER ==
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
[2021-05-09 17:47] VITALS: BP 143/82; PULSE 96; O2SAT 99
== END 2021-05-09 17:51 | disposition home or self-care (01) ==
LOC: ED 17:00
DX: Z00.00 Encounter for general adult medical examination without abnormal findings (principal)
CPT/HCPCS: 99283

== ENCOUNTER 2021-06-09 22:55 | Observation (INO) | payer MEDICARE, OTHER ==
[2021-06-09] MEDS ORDERED: solu-MEDROL 125 MG, Sterile H2O 10 ml 2 ML IV ONE ×2 (23:11)
[2021-06-09] MEDS ORDERED: DUONEB 0.5-3 MG/3 ml Neb IH ONE ×2 (23:11→23:17)
[2021-06-09 23:34] LABS: Absolute Neutrophil Ct (ANC) 4.45 (1.4-6.9); Basophil (Absolute #) 0.11 (0-0.4); Eosinophil % 5.1 % (0.00-5.0); Eosinophil (Absolute #) 0.39 (0-0.5); Hematocrit 34.7 % (42-50); Hemoglobin 10.6 gm/dl (12.5-18.0); Lymphocytes % 26.4 % (24.0-44.0); Mean Cell Volume 89.9 fl (78-100); Mean Corpuscular Hemoglobin 27.5 pg (26-32); Mean Corpuscular Hgb Concent. 30.5 g/dl (32-36); Mean Platelet Volume 8.9 fl (7.5-11.0); Monocyte (Absolute #) 0.64 (0.0-1.3); Monocytes % 8.4 % (0.0-12.0); Neutrophil % 58.7 % (36.0-66.0); Platelet Count 310 K/mm3 (150-450); Red Blood Count 3.86 M/mm3 (4.1-5.6); Red Cell Distribution Width 16.5 % (11.5-14.0); White Blood Count 7.6 K/mm3 (4.0-10.5)
[2021-06-09] MEDS ORDERED: solu-MEDROL ONE (23:35)
[2021-06-09] MEDS ORDERED: Zithromax 500 MG/ 250 ML NaCl Premix 500 MG/250 ML IVPB IV STA (23:36)
[2021-06-09] MEDS ORDERED: ROCEPHIN 2 Gm-D5w 50ML BAG** 2 G/50 ML IVPB IV STA (23:36)
--- NOTE | 2021-06-09 23:37 | ERPHSYRPT ---
- History of Present Illness Time Seen by Provider: 06/09/21 23:11 Source: patient Exam Limitations: no limitations Physician History: 66 years old male with history of heavy tobacco abuse, chronic respiratory failure secondary to COPD on 3 L oxygen, GERD presented in the ER with worsening shortness of breath for the last 2 to 3 days despite using her inhaler and nebul izer. Patient reports she called EMS last night and was given DuoNeb and started to feel better. Tonight he had again similar symptoms but decided to be seen in the ER as its shortness of breath is getting worse. Complaining of increased wheezing and chest tightness. Denies any chest pain. No fever or chills reported. Denies any sick contact and vaccinated for COVID-19. Timing/Duration: day(s) (2), constant, gradual onset, worse Activities at Onset: activity, rest Severity of Dyspnea-Max: severe Severity of Dyspnea-Current: moderate Possible Cause: frequent episodes Modifying Factors: Improves With: oxygen. Worsens With: activity, coughing, exertion Associated Symptoms: cough, chest pain/discomfort, productive cough, tightness, No fever Allergies/Adverse Reactions: No Known Drug Allergies Allergy (Verified 06/09/21 22:58) Home Medications: Albuterol Sulfate [Proair Hfa] 2 puff IH UD 03/03/19 [History] Mometasone Furoate [Asmanex] 1 puff IH BID 03/03/19 [History] Tiotropium Br/Olodaterol HCl [Stiolto Respimat Inhal [place]] 2 puff IH QAM 03/03/19 [History] Albuterol 2.5 mg/3 ml Neb [Proventil 2.5 mg/3 ml Neb] 2.5 mg IH Q4-6HPRN PRN 04/14/21 [History] Omeprazole 20 mg PO DAILY 05/05/21 [History] Hx Tetanus, Diphtheria Vaccination/Date Given: Yes (unknown) Hx Influenza Vaccination/Date Given: Yes Hx Pneumococcal Vaccination/Date Given: No Travel Risk - International Travel Have you traveled outside of the country in past 3 weeks: No - Coronavirus Screening Are you exhibiting any of the following symptoms?: No Close contact with a COVID-19 positive Pt in past 14-21 Days: No - Vaccine Status Have you recieved a Covid-19 vaccination: Yes Towel Folder: Moderna - Vaccination Dates Date of 2cond Vaccination (if applicable): 08/18/20 Comment: BOOSTER 04/03/21 - Review of Systems Constitutional: Fatigue Eyes: No Symptoms Ears, Nose, & Throat: No Symptoms Respiratory: Cough, Dyspnea, Dyspnea on Exertion (ROMERO), Wheezing Cardiac: No Symptoms Abdominal/Gastrointestinal: No Symptoms Genitourinary Symptoms: No Symptoms Musculoskeletal: No Symptoms Skin: No Symptoms Neurological: No Symptoms Psychological: No Symptoms Endocrine: No Symptoms Hematologic/Lymphatic: No Symptoms Immunological/Allergic: No Symptoms - Past Medical History Pertinent Past Medical History: Yes Neurological History: No Pertinent History ENT History: No Pertinent History Cardiac History: No Pertinent History Respiratory History: Bronchitis, COPD, Pneumonia Endocrine Medical History: No Pertinent History Musculoskeletal History: Arthritis, Other GI Medical History: GERD, GI Bleed, Ulcer, Other History: No Pertinent History Psycho-Social History: No Pertinent History Male Reproductive Disorders: No Pertinent History Other Medical History: few fractures - Past Surgical History Past Surgical History: Yes Neuro Surgical History: No Pertinent History Cardiac: No Pertinent History Respiratory: No Pertinent History Gastrointestinal: Other Genitourinary: No Pertinent History Musculoskeletal: No Pertinent History Male Surgical History: No Pertinent History Other Surgical History: Had Surgery on bleeding Ulcer - Social History Smoking Status: Current every day smoker How long have you smoked: Years Exposure to second hand smoke: Yes Alcohol Use: Chronic (daily throughout the day including work time) Drug Use: none Patient Lives Alone: No Significant Family History: no pertinent family hx - Nursing Vital Signs Nursing Vital Signs: Initial Vital Signs Temperature 97.6 F 06/09/21 22:58 Pulse Rate 112 H 06/09/21 22:58 Respiratory Rate 28 H 06/09/21 22:58 Blood Pressure 176/96 06/09/21 22:58 O2 Sat by Pulse Oximetry 96 06/09/21 22:58 Pain Scale Pain Intensity 0 - Physical Exam General Appearance: mild distress, alert Eye Exam: PERRL/EOMI, eyes nml inspection Ears, Nose, Throat Exam: hearing grossly normal, pharyngeal erythema Neck Exam: normal inspection, non-tender, supple, full range of motion Respiratory Exam: respiratory distress, diminished breath sounds, accessory muscle use, rhonchi, wheezing Cardiovascular/Chest Exam: normal heart sounds, regular rate/rhythm Abdominal/Gastrointestinal Exam: soft, No tenderness Extremity Exam: non-tender, normal range of motion Neurologic Exam: alert, 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, cooperative, racing car driver II-XII nml as tested Skin Exam: normal color SpO2 Interpretation: normal SpO2: 96 O2 Delivery: Nasal Cannula - Course EKG Interpreted by Me: RATE (94), Sinus Rhythm, NORMAL AXIS, NORMAL INTERVALS, Non-specific ST Changes Ordered Tests: Active Orders 24 hr Category Date Time Status Commercial Collector STAT Care 06/09/21 23:12 Active EKG-ER Only STAT Care 06/09/21 23:11 Active IV Insertion STAT Care 06/09/21 23:11 Active Oxygen-ED Only Nasal Cannula 3 lpm Care 06/09/21 23:11 Active CHEST 1 VIEW (PORTABLE) Stat Exams 06/09/21 23:12 Taken BLOOD CULTURE Stat Lab 06/09/21 23:21 Received CBC W DIFF Stat Lab 06/09/21 23:21 Completed CMP Stat Lab 06/09/21 23:21 Completed COVID AG-BINAX NOW RAPID TEST Stat Lab 06/09/21 23:37 Completed Lactic Acid Stat Lab 06/09/21 23:11 Ordered MAGNESIUM Stat Lab 06/09/21 23:21 Completed NT PRO BNP Stat Lab 06/09/21 23:21 Completed TROPONIN Q3H Lab 06/09/21 23:21 Completed TROPONIN Q3H Lab 06/10/21 02:15 Ordered TROPONIN Q3H Lab 06/10/21 05:15 Ordered TROPONIN Q3H Lab 06/10/21 08:15 Ordered TROPONIN Q3H Lab 06/10/21 11:15 Ordered UA W/RFX UR CULTURE Stat Lab 06/09/21 23:47 Ordered Respiratory Therapy Assessment DAILY RT 06/09/21 23:20 Active Medication Summary Generic Name Dose Route Start Last Admin Trade Name Freq PRN Reason Stop Dose Admin Ceftriaxone Sodium/Dextrose 2 g in 50 mls @ 100 mls/hr 06/09/21 23:36 06/09/21 23:54 Rocephin 2 Gm-D5w 50ml Bag IV 06/10/21 00:05 100 mls/hr STAT STA 100 mls/hr Administration Azithromycin 500 mg in 250 mls @ 250 mls/hr 06/09/21 23:36 Zithromax 500 Mg/ 250 Ml Nacl Premix IV 06/10/21 00:35 STAT STA Discontinued Medications Generic Name Dose Route Start Last Admin Trade Name Freq PRN Reason Stop Dose Admin Albuterol/Ipratropium 3 ml 06/09/21 23:11 06/09/21 23:19 Ipratropium/Albuterol Sulfate 3 Ml Ampul.Neb IH 06/09/21 23:12 3 ml STAT ONE Administration Albuterol/Ipratropium Confirm 06/09/21 23:17 Ipratropium/Albuterol Sulfate 3 Ml Ampul.Neb Administered 06/09/21 23:18 Dose 3 ml IH .STK-MED ONE Methylprednisolone Sodium 0 mg 06/09/21 23:11 06/09/21 23:36 Succinate 125 mg/ Sterile IV 06/09/21 23:12 125 mg Water 2 ml STAT ONE Administration Ceftriaxone Sodium/Dextrose Confirm 06/09/21 23:53 Rocephin 2 Gm-D5w 50ml Bag Administered 06/09/21 23:54 Dose 2 g in 50 mls @ ud IV .STK-MED ONE Methylprednisolone Sodium Succinate Confirm 06/09/21 23:35 Methylprednis Sod Succ 125 Mg/2 Ml Vial Administered 06/09/21 23:36 Dose 125 mg .ROUTE .STK-MED ONE Lab/Rad Data: Laboratory Result Diagrams 06/09/21 23:21 06/09/21 23:21 Laboratory Results 06/09/21 06/09/21 06/09/21 Range/Units 23:37 23:21 23:21 WBC (4.0-10.5) K/mm3 RBC (4.1-5.6) M/mm3 Hgb (12.5-18.0) gm/dl Hct (42-50) % MCV (78-100) fl MCH (26-32) pg MCHC (32-36) g/dl RDW (11.5-14.0) % Plt Count (150-450) K/mm3 MPV (7.5-11.0) fl Gran % (36.0-66.0) % Eos # (Auto) (0-0.5) Absolute Lymphs (auto) (1.0-4.6) Absolute Monos (auto) (0.0-1.3) Lymphocytes % (24.0-44.0) % Monocytes % (0.0-12.0) % Eosinophils % (0.00-5.0) % Basophils % (0.0-0.4) % Absolute Granulocytes (1.4-6.9) Basophils # (0-0.4) Sodium 139 (137-145) mmol/L Potassium 3.8 (3.5-5.1) mmol/L Chloride 101 (98-107) mmol/L Carbon Dioxide 27 (22-30) mmol/L Anion Gap 15.9 H (5-15) MEQ/L BUN 8 L (9-20) mg/dL Creatinine 0.80 (0.66-1.25) mg/dL Estimated GFR > 60.0 ML/MIN Glucose 109 H (74-106) mg/dL Calcium 9.6 (8.4-10.2) mg/dL Magnesium 1.8 (1.6-2.3) mg/dL Total Bilirubin 0.40 (0.2-1.3) mg/dL AST 36 (17-59) U/L ALT 17 (0-50) U/L Alkaline Phosphatase 47 (38-126) U/L Troponin I < 0.012 (0.000-0.034) ng/mL NT-Pro-B Natriuret Pep 64.9 (0-900) pg/mL Serum Total Protein 7.8 (6.3-8.2) g/dL Albumin 4.7 (3.5-5.0) g/dL SARS-CoV-2 Ag (Rapid) NEGATIVE (NEGATIVE) 06/09/21 Range/Units 23:21 WBC 7.6 (4.0-10.5) K/mm3 RBC 3.86 L (4.1-5.6) M/mm3 Hgb 10.6 L (12.5-18.0) gm/dl Hct 34.7 L (42-50) % MCV 89.9 (78-100) fl MCH 27.5 (26-32) pg MCHC 30.5 L (32-36) g/dl RDW 16.5 H (11.5-14.0) % Plt Count 310 (150-450) K/mm3 MPV 8.9 (7.5-11.0) fl Gran % 58.7 (36.0-66.0) % Eos # (Auto) 0.39 (0-0.5) Absolute Lymphs (auto) 2.00 (1.0-4.6) Absolute Monos (auto) 0.64 (0.0-1.3) Lymphocytes % 26.4 (24.0-44.0) % Monocytes % 8.4 (0.0-12.0) % Eosinophils % 5.1 H (0.00-5.0) % Basophils % 1.4 (0.0-0.4) % Absolute Granulocytes 4.45 (1.4-6.9) Basophils # 0.11 (0-0.4) Sodium (137-145) mmol/L Potassium (3.5-5.1) mmol/L Chloride (98-107) mmol/L Carbon Dioxide (22-30) mmol/L Anion Gap (5-15) MEQ/L BUN (9-20) mg/dL Creatinine (0.66-1.25) mg/dL Estimated GFR ML/MIN Glucose (74-106) mg/dL Calcium (8.4-10.2) mg/dL Magnesium (1.6-2.3) mg/dL Total Bilirubin (0.2-1.3) mg/dL AST (17-59) U/L ALT (0-50) U/L Alkaline Phosphatase (38-126) U/L Troponin I (0.000-0.034) ng/mL NT-Pro-B Natriuret Pep (0-900) pg/mL Serum Total Protein (6.3-8.2) g/dL Albumin (3.5-5.0) g/dL SARS-CoV-2 Ag (Rapid) (NEGATIVE) - Progress Progress: improved Air Movement: fair Progress Note: 06/10/21 00:03 66 years old is evaluated for increasing shortness of breath. Patient was in mild to moderate distress on presentation, given DuoNeb and steroids, on reevaluation feeling better. Still tachypneic but much improved since presentation. EKG showed sinus rhythm without any obvious ST elevation and negative initial troponins. Chest x-ray reviewed by me did not reveal any obvious acute cardiopulmonary findings. I believe patient has COPD exacerbation and given a dose of antibiotic as well. Discussed with Dr. Guerra and patient is being admitted for observation. Blood Culture(s) Obtained: Yes Antibiotics given: Yes Discussed with : Lora Will see patient in: hospital (observation) Counseled pt/family regarding: lab results, diagnosis, rad results, smoking cessation - Departure Departure Disposition: Observation Clinical Impression: COPD with exacerbation Condition: Stable Critical Care Time: No Referrals: MITZY GUERRA [Primary Care Provider] - Follow up/PCP as directed Instructions: Chronic Obstructive Pulmonary Disease
[2021-06-09 23:39] LABS: COVID AG -BINAX NOW RAPID TEST NEGATIVE (NEGATIVE)
[2021-06-09 23:49] LABS: ALBUMIN 4.7 g/dL (3.5-5.0); ALKALINE PHOSPHATASE 47 U/L (38-126); ANION GAP 15.9 MEQ/L (5-15); BLOOD UREA NITROGEN 8 mg/dL (9-20); CHLORIDE 101 mmol/L (98-107); Calcium 9.6 mg/dL (8.4-10.2); Carbon Dioxide 27 mmol/L (22-30); EST GLOMERULAR FILTRATION RATE > 60.0 ML/MIN; Glucose 109 mg/dL (74-106); MAGNESIUM 1.8 mg/dL (1.6-2.3); NT PRO BNP 64.9 pg/mL (0-900); Potassium 3.8 mmol/L (3.5-5.1); SGOT/AST 36 U/L (17-59); SGPT/ALT 17 U/L (0-50); SODIUM 139 mmol/L (137-145); Total Protein 7.8 g/dL (6.3-8.2)
[2021-06-09] MEDS ORDERED: ROCEPHIN 2 Gm-D5w 50ML BAG** 2 G/50 ML IVPB IV ONE (23:53)
[2021-06-10] MEDS ORDERED: Zithromax 500 MG/ 250 ML NaCl Premix 500 MG/250 ML IVPB IV ONE (00:26)
[2021-06-10 00:36] LABS: Appearance CLEAR (CLEAR); Bilirubin NEGATIVE (NEGATIVE); Blood NEGATIVE Ery/ul (0-5); Glucose NEGATIVE (NEGATIVE); Ketones NEGATIVE (NEGATIVE); Leukocyte Esterase NEGATIVE (NEGATIVE); Nitrite NEGATIVE (NEGATIVE); Protein,Urine Dip NEGATIVE (Negative); Specific Gravity 1.004 (1.005-1.025); Urobilinogen NEGATIVE mg/dL (0-1)
[2021-06-10 01:16] LABS: INFLUENZA A NEGATIVE (NEGATIVE); INFLUENZA B NEGATIVE (NEGATIVE); RESPIRATORY SYNCTIAL VIRUS NEGATIVE (Negative); SARS-CoV-2 Xpert Express NEGATIVE (NEGATIVE)
[2021-06-10] MEDS ORDERED: TYLENOL 325 MG PO PRN (01:42)
[2021-06-10] MEDS ORDERED: DUONEB 0.5-3 MG/3 ml Neb IH SCH (01:42)
[2021-06-10] MEDS ORDERED: PROVENTIL 2.5 MG/3 ML NEB IH PRN (04:57)
[2021-06-10 05:47] LABS: Absolute Neutrophil Ct (ANC) 4.26 (1.4-6.9); Basophil (Absolute #) 0.03 (0-0.4); Eosinophil % 0.2 % (0.00-5.0); Eosinophil (Absolute #) 0.01 (0-0.5); Hematocrit 33.6 % (42-50); Hemoglobin 10.1 gm/dl (12.5-18.0); Lymphocyte (Absolute #) 0.18 (1.0-4.6); Mean Cell Volume 90.3 fl (78-100); Mean Corpuscular Hemoglobin 27.2 pg (26-32); Mean Corpuscular Hgb Concent. 30.1 g/dl (32-36); Mean Platelet Volume 8.7 fl (7.5-11.0); Monocyte (Absolute #) 0.03 (0.0-1.3); Monocytes % 0.7 % (0.0-12.0); Neutrophil % 94.4 % (36.0-66.0); Platelet Count 291 K/mm3 (150-450); Red Blood Count 3.72 M/mm3 (4.1-5.6); Red Cell Distribution Width 16.2 % (11.5-14.0); White Blood Count 4.5 K/mm3 (4.0-10.5)
[2021-06-10 06:16] LABS: ALBUMIN 4.3 g/dL (3.5-5.0); ALKALINE PHOSPHATASE 49 U/L (38-126); ANION GAP 13.6 MEQ/L (5-15); BLOOD UREA NITROGEN 10 mg/dL (9-20); CHLORIDE 100 mmol/L (98-107); Calcium 9.2 mg/dL (8.4-10.2); Carbon Dioxide 29 mmol/L (22-30); Creatinine 1 0.69 mg/dL (0.66-1.25); EST GLOMERULAR FILTRATION RATE > 60.0 ML/MIN; Glucose 130 mg/dL (74-106); Potassium 4.3 mmol/L (3.5-5.1); SGOT/AST 35 U/L (17-59); SGPT/ALT 17 U/L (0-50); SODIUM 138 mmol/L (137-145); Total Protein 7.2 g/dL (6.3-8.2)
[2021-06-10 06:48] LABS: Slide Review 1 YES
[2021-06-10] MEDS: PROTONIX 40 MG IV IV SCH (08:33)
[2021-06-10] MEDS: ENOXAPARIN SODIUM SQ SCH (08:33)
[2021-06-10] MEDS: solu-MEDROL 125 MG, Sterile H2O 10 ml 2 ML IV SCH ×4 (08:34→17:53)
[2021-06-10] MEDS: Nicoderm CQ 21 MG TOP SCH (08:39)
[2021-06-10] MEDS ORDERED: Ventolin Hfa MDI IH SCH (08:45)
--- NOTE | 2021-06-10 08:52 | XRAY ---
Indication: Short of breath. Comparison: May 01, 2021. Portable chest again hyperinflated and clear again with a few incidental tiny calcified granulomas. Heart not enlarged. Bony thorax intact with minimal degenerative changes. No new/acute findings.
[2021-06-10] MEDS ORDERED: VENTOLIN COMMON CANISTER IH SCH (09:00)
[2021-06-10] MEDS: Advair Hfa 230/21 Mcg COMMON CANISTER IH SCH ×2 (09:52→19:45)
[2021-06-10] MEDS ORDERED: OLODATEROL HCL MIST IH SCH (10:00)
[2021-06-10] MEDS ORDERED: [UNRECOGNIZED DRUG - OTHER] IH SCH (10:00)
[2021-06-10] MEDS ORDERED: TIOTROPIUM BR IH SCH (10:00)
--- NOTE | 2021-06-10 10:27 | HP ---
CHIEF COMPLAINT: Shortness of breath. HISTORY OF PRESENT ILLNESS: The patient is a 66-year-old white male patient with history of chronic obstructive pulmonary disease. The patient continues to smoke heavily. He was seen also by Dr. Mcduffie. Apparently, the patient had been getting worse over the last two to three days and presented to the emergency room for further evaluation and management due to his inability to get any relief. He has been using medicines at home of Albuterol. He reports that this is not helping anything but when he was seen in the emergency room they gave him a DuoNeb and he was able to produce sputum and feel better. He was given Rocephin and Zithromax in the emergency room and started on some Solu-Medrol. PAST MEDICAL/SURGICAL HISTORY: Otherwise significant for hypoxia from his chronic obstructive pulmonary disease. He has no other significant medical problems. HOME MEDICATIONS: Includes Albuterol puffer and nebulizer, Asmanex spray to use for the chronic obstructive pulmonary disease, sucralfate for stomach issues, tiotropium olodaterol spray as well for the chronic obstructive pulmonary disease. ALLERGIES: NKDA. PHYSICAL EXAMINATION: The patient's vital signs in the emergency room showed temperature 97.6F, pulse 112, respiratory rate 28, blood pressure 176/96. O2 saturation 96% on supplemental oxygen. HEENT: Normocephalic, atraumatic. Pupils equal round reactive to light. Extraocular movements intact. The patient is wearing oxygen per nasal cannula. Oropharynx is slightly dry. NECK: Supple without lymphadenopathy, thyromegaly or JVD. CHEST: Revealed diminished air movement and slight wheezes heard in the anterior area of the chest. HEART: Regular rate and rhythm without murmurs, rubs or gallops. ABDOMEN: Soft, scaphoid. No palpable masses. EXTREMITIES: Without cyanosis, clubbing or edema. NEUROLOGIC: Intact with no focal deficits noted. LAB DATA AND TESTS: Laboratory studies from the emergency room: White count 7.6, hemoglobin 10.6, PLT count 310,000. He was negative for COVID, respiratory syncytial virus and influenza. His metabolic panel showed a glucose of 109, BUN 8, creatinine 0.80. His electrolytes were normal. Liver enzymes were normal. ProBNP was normal. His troponin was normal. Lactic acid 1.9. UA was normal. Several more troponins were all normal as well. The patient's EKG tracing showed sinus tachycardiac with mild interventricular conduction delay but no evidence of ischemia noted on his tracing. There was significant wandering based on his 12-lead EKG which makes interpretation somewhat more difficult. ASSESSMENT: A patient with acute exacerbation of chronic obstructive pulmonary disease. He has tested negative for COVID. He has been admitted to the unit for IV antibiotics of Rocephin and Zithromax. He is taking Solu-Medrol now at 125 IV every 8 hours and received DuoNeb. The patient is presently comfortable on the above treatment and feeling better than he was on admission. He will require at least a couple of days of IV Solu-Medrol to get him reduced of inflammation to feel like he could be ready to home again.
[2021-06-10] MEDS: Carafate 1 GM PO SCH (11:37)
[2021-06-10] MEDS: DUONEB 0.5-3 MG/3 ml Neb IH PRN ×2 (15:55→19:45)
[2021-06-10] MEDS: ROCEPHIN 1 Gm-D5w 50 ml Bag** 1 G/50 ML IVPB IV SCH (21:14)
[2021-06-10] MEDS: Zithromax 500 MG/ 250 ML NaCl Premix 500 MG/250 ML IVPB IV SCH (21:59)
[2021-06-11] MEDS ORDERED: solu-MEDROL ONE (02:14)
[2021-06-11] MEDS: solu-MEDROL 125 MG, Sterile H2O 10 ml 2 ML IV SCH ×4 (02:21→09:58)
[2021-06-11 06:48] LABS: Absolute Neutrophil Ct (ANC) 10.89 (1.4-6.9); Basophil (Absolute #) 0.01 (0-0.4); Eosinophil (Absolute #) 0 (0-0.5); Hematocrit 29.5 % (42-50); Lymphocyte (Absolute #) 0.38 (1.0-4.6); Lymphocytes % 3.3 % (24.0-44.0); Mean Cell Volume 88.9 fl (78-100); Mean Corpuscular Hemoglobin 27.1 pg (26-32); Mean Corpuscular Hgb Concent. 30.5 g/dl (32-36); Mean Platelet Volume 8.8 fl (7.5-11.0); Monocyte (Absolute #) 0.21 (0.0-1.3); Monocytes % 1.8 % (0.0-12.0); Neutrophil % 94.8 % (36.0-66.0); Platelet Count 290 K/mm3 (150-450); Red Blood Count 3.32 M/mm3 (4.1-5.6); Red Cell Distribution Width 15.8 % (11.5-14.0); White Blood Count 11.5 K/mm3 (4.0-10.5)
[2021-06-11 07:09] LABS: ALKALINE PHOSPHATASE 41 U/L (38-126); ANION GAP 12.5 MEQ/L (5-15); BLOOD UREA NITROGEN 17 mg/dL (9-20); CHLORIDE 100 mmol/L (98-107); Calcium 9.1 mg/dL (8.4-10.2); Carbon Dioxide 28 mmol/L (22-30); Creatinine 1 0.67 mg/dL (0.66-1.25); EST GLOMERULAR FILTRATION RATE > 60.0 ML/MIN; Glucose 143 mg/dL (74-106); SGOT/AST 30 U/L (17-59); SGPT/ALT 15 U/L (0-50); SODIUM 136 mmol/L (137-145); Total Protein 6.7 g/dL (6.3-8.2)
[2021-06-11] MEDS: DUONEB 0.5-3 MG/3 ml Neb IH PRN ×5 (07:59→23:58)
[2021-06-11] MEDS: Advair Hfa 230/21 Mcg COMMON CANISTER IH SCH ×2 (07:59→19:48)
[2021-06-11 08:00] LABS: Slide Review 1 YES
[2021-06-11] MEDS: PROTONIX 40 MG IV IV SCH (09:58)
[2021-06-11] MEDS: ENOXAPARIN SODIUM SQ SCH (09:58)
[2021-06-11] MEDS: Nicoderm CQ 21 MG TOP SCH (10:05)
[2021-06-11] MEDS: Carafate 1 GM PO SCH (12:17)
--- NOTE | 2021-06-11 12:52 | PCM.NOTE ---
Date and Time: 06/11/21 6975 Subjective Assessment: Patient is sitting at bedside finishing lunch. He would like to go home, breathing better but is on O2 3L/NC and on IV solumedrol 125 mg q8 since admission. Is fatigued but steady when up to the bathroom per nursing. Hgb is 9.0 this am was 10.6 on admission.Denies abd pain or indigestion but states he was started on med for GERD 2 months ago. He denies change in stool states brown formed stool. Objective Exam General Appearance: no apparent distress Neurologic Exam: alert, 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, cooperative, normal mood/affect Skin Exam: pale (sallow color) Ears, Nose, Throat Exam: normal ENT inspection Neck Exam: normal inspection Respiratory Exam: diminished breath sounds, wheezing (fine mid bilateral eew) Gastrointestinal/Abdomen Exam: soft, normal bowel sounds (nontender no guarding) Extremity Exam: normal inspection OBJECTIVE DATA Vital Signs: Vital Signs - 24 hr Temp Pulse Resp BP Pulse Ox 06/11/21 12:00 98.1 F 112 H 19 117/62 96 06/11/21 08:00 97.6 F 102 H 20 130/69 95 06/11/21 04:00 98.0 F 115 H 22 130/65 96 06/10/21 23:33 98.3 F 110 H 26 H 114/58 98 06/10/21 19:46 100 H 20 94 L 06/10/21 19:35 98.2 F 97 H 20 131/53 96 06/10/21 16:14 99 H 22 96 06/10/21 16:00 97.7 F 104 H 23 122/57 95 Pain Assessment - Last Documented Pain Intensity 0 Intake and Output: Intake & Output 06/09/21 06/10/21 06/11/21 06/12/21 11:59 11:59 11:59 11:59 Intake Total 480 2000 Balance 480 2000 Weight 65.4 kg Lab Results: Lab Results-Last 24 Hours 06/11/21 06/11/21 Range/Units 06:20 06:20 WBC 11.5 H (4.0-10.5) K/mm3 RBC 3.32 L (4.1-5.6) M/mm3 Hgb 9.0 L (12.5-18.0) gm/dl Hct 29.5 L (42-50) % MCV 88.9 (78-100) fl MCH 27.1 (26-32) pg MCHC 30.5 L (32-36) g/dl RDW 15.8 H (11.5-14.0) % Plt Count 290 (150-450) K/mm3 MPV 8.8 (7.5-11.0) fl Gran % 94.8 H (36.0-66.0) % Eos # (Auto) 0 (0-0.5) Absolute Lymphs (auto) 0.38 L (1.0-4.6) Absolute Monos (auto) 0.21 (0.0-1.3) Lymphocytes % 3.3 L (24.0-44.0) % Monocytes % 1.8 (0.0-12.0) % Eosinophils % 0.0 (0.00-5.0) % Basophils % 0.1 (0.0-0.4) % Absolute Granulocytes 10.89 H (1.4-6.9) Basophils # 0.01 (0-0.4) Sodium 136 L (137-145) mmol/L Potassium 4.0 (3.5-5.1) mmol/L Chloride 100 (98-107) mmol/L Carbon Dioxide 28 (22-30) mmol/L Anion Gap 12.5 (5-15) MEQ/L BUN 17 (9-20) mg/dL Creatinine 0.67 (0.66-1.25) mg/dL Estimated GFR > 60.0 ML/MIN Glucose 143 H (74-106) mg/dL Calcium 9.1 (8.4-10.2) mg/dL Total Bilirubin 0.30 (0.2-1.3) mg/dL AST 30 (17-59) U/L ALT 15 (0-50) U/L Alkaline Phosphatase 41 (38-126) U/L Serum Total Protein 6.7 (6.3-8.2) g/dL Albumin 4.0 (3.5-5.0) g/dL Slides for Path Review YES Radiology Exams: Radiology Procedures Category Date Time Status CHEST 1 VIEW (PORTABLE) Stat Exams 06/09/21 23:12 Completed Assessment/Plan (1) COPD with exacerbation Current Visit: Yes Status: Acute Assessment & Plan: improving,will reduce IV solumedrol and plan home in AM if no set backs.Continue IV Zithromax and Rocephin. Code(s): J44.1 - CHRONIC OBSTRUCTIVE PULMONARY DISEASE W (ACUTE) EXACERBATION (2) Anemia Current Visit: Yes Status: Acute Qualifiers: Anemia type: unspecified type Qualified Code(s): D64.9 - Anemia, unspecified Assessment & Plan: heme test stool. Is on Carafate and IV pantoprazole. Code(s): D64.9 - ANEMIA, UNSPECIFIED (3) GERD (gastroesophageal reflux disease) Current Visit: Yes Status: Acute Qualifiers: Esophagitis presence: esophagitis presence not specified Qualified Code(s): K21.9 - Gastro-esophageal reflux disease without esophagitis Assessment & Plan: states flare up about 2 months ago and is better on RX Code(s): K21.9 - GASTRO-ESOPHAGEAL REFLUX DISEASE WITHOUT ESOPHAGITIS
[2021-06-11] MEDS ORDERED: solu-MEDROL 80 MG, Sterile H2O 10 ml 1 ML IV SCH ×2 (14:00)
[2021-06-11] MEDS ORDERED: Ativan 1 MG PO PRN (15:05)
[2021-06-11] MEDS: solu-MEDROL 80 MG, Sterile H2O 10 ml 2 ML IV SCH ×2 (18:21)
[2021-06-11] MEDS: ROCEPHIN 1 Gm-D5w 50 ml Bag** 1 G/50 ML IVPB IV SCH (21:47)
[2021-06-11] MEDS: Zithromax 500 MG/ 250 ML NaCl Premix 500 MG/250 ML IVPB IV SCH (22:23)
[2021-06-12] MEDS: solu-MEDROL 80 MG, Sterile H2O 10 ml 2 ML IV SCH ×4 (02:58→09:14)
[2021-06-12 06:26] LABS: Basophil (Absolute #) 0.01 (0-0.4); Eosinophil (Absolute #) 0 (0-0.5); Hematocrit 29.7 % (42-50); Hemoglobin 9.1 gm/dl (12.5-18.0); Lymphocyte (Absolute #) 0.33 (1.0-4.6); Mean Cell Volume 89.5 fl (78-100); Mean Corpuscular Hemoglobin 27.4 pg (26-32); Mean Corpuscular Hgb Concent. 30.6 g/dl (32-36); Monocytes % 2.5 % (0.0-12.0); Neutrophil % 95.4 % (36.0-66.0); Platelet Count 336 K/mm3 (150-450); Red Blood Count 3.32 M/mm3 (4.1-5.6); Red Cell Distribution Width 16.3 % (11.5-14.0); White Blood Count 16.1 K/mm3 (4.0-10.5)
[2021-06-12 07:11] LABS: ALKALINE PHOSPHATASE 43 U/L (38-126); ANION GAP 11.5 MEQ/L (5-15); BLOOD UREA NITROGEN 19 mg/dL (9-20); CHLORIDE 100 mmol/L (98-107); Calcium 9.1 mg/dL (8.4-10.2); Carbon Dioxide 28 mmol/L (22-30); Creatinine 1 0.69 mg/dL (0.66-1.25); EST GLOMERULAR FILTRATION RATE > 60.0 ML/MIN; Glucose 131 mg/dL (74-106); Potassium 3.9 mmol/L (3.5-5.1); SGOT/AST 26 U/L (17-59); SGPT/ALT 17 U/L (0-50); SODIUM 136 mmol/L (137-145); Total Protein 6.8 g/dL (6.3-8.2)
[2021-06-12 07:20] LABS: Slide Review 1 YES
[2021-06-12] MEDS: DUONEB 0.5-3 MG/3 ml Neb IH PRN (07:27)
[2021-06-12] MEDS: Advair Hfa 230/21 Mcg COMMON CANISTER IH SCH (07:27)
[2021-06-12] MEDS: PROTONIX 40 MG IV IV SCH (09:09)
[2021-06-12] MEDS: Nicoderm CQ 21 MG TOP SCH (09:14)
--- NOTE | 2021-06-12 11:16 | PCM.DCORD ---
- Discharge Disposition: Home, Self-Care Condition: Stable Prescriptions: New Prednisone 10 mg [Deltasone 10 mg] 10 mg PO DAILY #20 tablet Albuterol/Ipratropium 3ml Neb* [DUONEB 0.5-3 MG/3 ml Neb] 3 ml IH Q8H PRN PRN #90 PRN Reason: Shortness Of Breath/Wheezing Azithromycin 250 mg [Zithromax 250 MG TABLET] 250 mg PO ZPACK #1 tablet PANTOPRAZOLE 40 mg Tablet [Protonix 40MG Tablet] 40 mg PO QAM #30 tab Ferrous Fum/Liver Ext/Bcomp,C [Liver with Iron Tablet] 1 each PO DAILY #30 tablet Continue Tiotropium Br/Olodaterol HCl [Stiolto Respimat Inhal [place]] 2 puff IH QAM Mometasone Furoate [Asmanex] 1 puff IH BID Albuterol Sulfate [Proair Hfa] 2 puff IH UD Albuterol 2.5 mg/3 ml Neb [Proventil 2.5 mg/3 ml Neb] 2.5 mg IH Q4- 6HPRN PRN PRN Reason: Shortness Of Breath/Wheezing Sucralfate 1 gm [Carafate 1 GM] 1 g PO DAILY Additional Instructions: discussed importance of avoiding alcohol and cigarettes Follow up with: MITZY LOOMIS [Primary Care Provider] - 06/20/21 9:15 am DILMA LAGOS [ACTIVE STAFF] - 1 Week
--- NOTE | 2021-06-12 11:44 | PCM.DS ---
Discharge Summary Date of Admission: 06/10/21 01:33 Admitting Physician: MITZY GUERRA Primary Care Provider: MITZY GUERRA Allergies Allergies No Known Drug Allergies Allergy (Verified 06/09/21 22:58) Hospital Summary - Hospital Course Hospital Course: Patient is a 66yr old male patient of Dr Guerra / [facility] / Dr KELLY Lagos with Hx COPD,GERD,Alcoholism and everyday smoker and remote Hx UGI bleed/blood transfusions. He presented to ER with cough and dyspnea. He tested negative for Covid,RSV,Influenza A and B . CXR was negative for acute findings and heart was normal size. His sats are in low 90s on RA ,did require O2 at one point. He improved with Tx IV Solumedro,Zithromax and Rocephin and Duoneb nebulizer treatments. He refused Nicotene patch and was given Ativan. He uses alcohol on a regular basis but state he slowed down after UGI bleed and blood transfusions a few years ago. He was cautioned on risk for recurrence of problems with current lifestyle.Patient voiced understanding. - Vitals & Intake/Output Vital Signs: Vital Signs Temperature 98.1 F 06/12/21 08:00 Pulse Rate 107 H 06/12/21 08:00 Respiratory Rate 18 06/12/21 08:00 Blood Pressure 132/63 06/12/21 08:00 O2 Sat by Pulse Oximetry 86 L 06/12/21 08:00 Intake & Output: Intake & Output 06/09/21 06/10/21 06/11/21 06/12/21 11:59 11:59 11:59 11:59 Intake Total 480 1999 184 Balance 480 1999 184 Weight 65.4 kg 65.6 kg - Lab Result Diagrams: 06/12/21 05:40 06/12/21 05:40 Lab Results-Last 24 Hrs: Lab Results-Last 24 Hours 06/12/21 06/12/21 Range/Units 05:40 05:40 WBC 16.1 H (4.0-10.5) K/mm3 RBC 3.32 L (4.1-5.6) M/mm3 Hgb 9.1 L (12.5-18.0) gm/dl Hct 29.7 L (42-50) % MCV 89.5 (78-100) fl MCH 27.4 (26-32) pg MCHC 30.6 L (32-36) g/dl RDW 16.3 H (11.5-14.0) % Plt Count 336 (150-450) K/mm3 MPV 9.0 (7.5-11.0) fl Gran % 95.4 H (36.0-66.0) % Eos # (Auto) 0 (0-0.5) Absolute Lymphs (auto) 0.33 L (1.0-4.6) Absolute Monos (auto) 0.40 (0.0-1.3) Lymphocytes % 2.0 L (24.0-44.0) % Monocytes % 2.5 (0.0-12.0) % Eosinophils % 0.0 (0.00-5.0) % Basophils % 0.1 (0.0-0.4) % Absolute Granulocytes 15.40 H (1.4-6.9) Basophils # 0.01 (0-0.4) Sodium 136 L (137-145) mmol/L Potassium 3.9 (3.5-5.1) mmol/L Chloride 100 (98-107) mmol/L Carbon Dioxide 28 (22-30) mmol/L Anion Gap 11.5 (5-15) MEQ/L BUN 19 (9-20) mg/dL Creatinine 0.69 (0.66-1.25) mg/dL Estimated GFR > 60.0 ML/MIN Glucose 131 H (74-106) mg/dL Calcium 9.1 (8.4-10.2) mg/dL Total Bilirubin 0.30 (0.2-1.3) mg/dL AST 26 (17-59) U/L ALT 17 (0-50) U/L Alkaline Phosphatase 43 (38-126) U/L Serum Total Protein 6.8 (6.3-8.2) g/dL Albumin 4.0 (3.5-5.0) g/dL Slides for Path Review YES Micro Results-Entire Visit: Microbiology 06/09/21 23:21 Blood Culture - Preliminary Blood NO GROWTH TO DATE 06/09/21 23:21 Blood Culture - Preliminary Blood NO GROWTH TO DATE - Procedures and Test Procedures and Tests throughout Hospitalization: Therapy Orders & Screens 06/09/21 23:20 Respiratory Therapy Assessment DAILY Comment: 06/10/21 03:39 Oxygen Nasal Cannula 3 lpm Comment: Diagnosis: COPD exacerbation Discharge Exam General Appearance: no apparent distress Neurologic Exam: alert, 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, cooperative, normal mood/affect Eye Exam: eyes nml inspection Ears, Nose, Throat Exam: normal ENT inspection Neck Exam: normal inspection Respiratory Exam: diminished breath sounds (improved aeration) Cardiovascular Exam: regular rate/rhythm Gastrointestinal/Abdomen Exam: soft, normal bowel sounds (nontender) Extremity Exam: normal inspection Final Diagnosis/Problem List - Final Discharge Diagnosis/Problem (1) COPD with exacerbation Current Visit: Yes Status: Acute Code(s): J44.1 - CHRONIC OBSTRUCTIVE PULMONARY DISEASE W (ACUTE) EXACERBATION (2) Anemia Current Visit: Yes Status: Acute Code(s): D64.9 - ANEMIA, UNSPECIFIED (3) GERD (gastroesophageal reflux disease) Current Visit: Yes Status: Acute Code(s): K21.9 - GASTRO-ESOPHAGEAL REFLUX DISEASE WITHOUT ESOPHAGITIS - Discharge Disposition: Home, Self-Care Condition: Stable Prescriptions: New Prednisone 10 mg [Deltasone 10 mg] 10 mg PO DAILY #20 tablet Albuterol/Ipratropium 3ml Neb* [DUONEB 0.5-3 MG/3 ml Neb] 3 ml IH Q8H PRN PRN #90 PRN Reason: Shortness Of Breath/Wheezing Azithromycin 250 mg [Zithromax 250 MG TABLET] 250 mg PO ZPACK #1 tablet PANTOPRAZOLE 40 mg Tablet [Protonix 40MG Tablet] 40 mg PO QAM #30 tab Ferrous Fum/Liver Ext/Bcomp,C [Liver with Iron Tablet] 1 each PO DAILY #30 tablet Continue Tiotropium Br/Olodaterol HCl [Stiolto Respimat Inhal [place]] 2 puff IH QAM Mometasone Furoate [Asmanex] 1 puff IH BID Albuterol Sulfate [Proair Hfa] 2 puff IH UD Albuterol 2.5 mg/3 ml Neb [Proventil 2.5 mg/3 ml Neb] 2.5 mg IH Q4- 6HPRN PRN PRN Reason: Shortness Of Breath/Wheezing Sucralfate 1 gm [Carafate 1 GM] 1 g PO DAILY Instructions: Exacerbation of COPD (DC) Additional Instructions: discussed importance of avoiding alcohol and cigarettes Follow up with: MITZY GUERRA [Primary Care Provider] - 06/20/21 9:15 am DILMA LAGOS [ACTIVE STAFF] - 1 Week
[2021-06-12 12:24] VITALS: BP 140/70; PULSE 101; O2SAT 94
== END 2021-06-12 12:02 | disposition home or self-care (01) ==
LOC: ED 22:55 → MED SURG 06-10 01:33
PROVIDERS: ADMIT Family Medicine; ATTEND Family Medicine
DX: J44.1 Chronic obstructive pulmonary disease with (acute) exacerbation (principal); D64.9 Anemia, unspecified; K21.9 Gastro-esophageal reflux disease without esophagitis; R09.02 Hypoxemia; Z72.0 Tobacco use; Z79.899 Other long term (current) drug therapy; Z20.828 Contact with and (suspected) exposure to other viral communicable diseases
CPT/HCPCS: 0241U; 36000; 36415; 71045; 80053; 81001; 82947; 83036; 83605; 83735; 83880; 84484; 85025; 87040; 93005; 93041; 93268; 94640; 94762; 96374; 99000; 99284; G0378; J0456; J0696; J1650; J2930; A9270-GY

== ENCOUNTER 2021-06-14 00:56 | Emergency (ER) | payer MEDICARE, OTHER ==
[2021-06-14] MEDS ORDERED: DECADRON 10MG INJ. IV ONE (01:08)
[2021-06-14] MEDS ORDERED: DECADRON 10MG INJ. ONE (01:17)
[2021-06-14 01:26] LABS: Absolute Neutrophil Ct (ANC) 8.52 (1.4-6.9); Basophil (Absolute #) 0 (0-0.4); Eosinophil % 0.3 % (0.00-5.0); Eosinophil (Absolute #) 0.03 (0-0.5); Hematocrit 35.3 % (42-50); Hemoglobin 10.7 gm/dl (12.5-18.0); Lymphocyte (Absolute #) 1.67 (1.0-4.6); Lymphocytes % 15.1 % (24.0-44.0); Mean Cell Volume 88.9 fl (78-100); Mean Corpuscular Hgb Concent. 30.3 g/dl (32-36); Mean Platelet Volume 8.9 fl (7.5-11.0); Monocyte (Absolute #) 0.86 (0.0-1.3); Monocytes % 7.8 % (0.0-12.0); Neutrophil % 76.8 % (36.0-66.0); Platelet Count 372 K/mm3 (150-450); Red Blood Count 3.97 M/mm3 (4.1-5.6); Red Cell Distribution Width 16.4 % (11.5-14.0); White Blood Count 11.1 K/mm3 (4.0-10.5)
[2021-06-14 01:33] LABS: INR 0.91 (0.8-3.0); PROTIME 10.7 SECONDS (9.4-12.5)
[2021-06-14 01:36] LABS: PTT 24.6 SECONDS (25.1-36.5)
[2021-06-14 01:44] LABS: COVID AG -BINAX NOW RAPID TEST NEGATIVE (NEGATIVE)
[2021-06-14 01:47] LABS: ALBUMIN 4.4 g/dL (3.5-5.0); ALKALINE PHOSPHATASE 46 U/L (38-126); BLOOD UREA NITROGEN 19 mg/dL (9-20); CHLORIDE 97 mmol/L (98-107); Calcium 9.6 mg/dL (8.4-10.2); Carbon Dioxide 29 mmol/L (22-30); EST GLOMERULAR FILTRATION RATE > 60.0 ML/MIN; Glucose 133 mg/dL (74-106); NT PRO BNP 363 pg/mL (0-900); Potassium 4.1 mmol/L (3.5-5.1); SGOT/AST 24 U/L (17-59); SGPT/ALT 19 U/L (0-50); SODIUM 136 mmol/L (137-145); Total Protein 7.1 g/dL (6.3-8.2)
--- NOTE | 2021-06-14 02:27 | ERPHSYRPT ---
- History of Present Illness Source: patient, EMS Exam Limitations: no limitations Patient Subjective Stated Complaint: pt states "I have been able to catch my breath today." Triage Nursing Assessment: pt came into the er via ambulance; pt is axo x4; c/o SOB; pt states that he was released from hospital on sunday; pt states that he was more SOB with movenment; pt has hx of COPD; pt wears 3L O2 at home; wheezes present in all lobes; shallow, labored breathing present; pt received a duo neb in route per EMS; afebrile; hypertension Physician History: 66 yo wm w h/o COPD/3L O2 dep/Continued tobacco abuse who was discharged from [facility] 2 days ago presents by ambulance w dyspnea. EMS gave a duoneb in route w improvement. Pt's sats on 3L 99-100% when EMS arrived at his house. Pt has a chronic cough but denies fever/cough/coryza/N/V/D/melena/hematochezia. He is well known to myselg and staf due to frequent ER visits for same complaint. Timing/Duration: today (Chronic) Activities at Onset: rest Severity of Dyspnea-Max: moderate Possible Cause: frequent episodes, chronic episodes Modifying Factors: Improves With: coughing, exertion Associated Symptoms: anxiety, cough, insomnia, wheezing, weakness, tightness, No chest pain/discomfort, No edema, No fever, No loss of appetite, No lightheade dness, No ankle swelling, No chills, No hemoptysis, No calf pain, No dizziness, No heaviness, No heart racing, No lightheadedness, No leg swelling, No muscle spasms feet, No muscle spasms hands, No painful breathing, No productive cough, No sweating, No tingling face, No tingling hands Allergies/Adverse Reactions: No Known Drug Allergies Allergy (Verified 06/14/21 01:16) Home Medications: Albuterol Sulfate [Proair Hfa] 2 puff IH UD 03/03/19 [History] Mometasone Furoate [Asmanex] 1 puff IH BID 03/03/19 [History] Tiotropium Br/Olodaterol HCl [Stiolto Respimat Inhal [place]] 2 puff IH QAM 03/03/19 [History] Albuterol 2.5 mg/3 ml Neb [Proventil 2.5 mg/3 ml Neb] 2.5 mg IH Q4-6HPRN PRN 04/14/21 [History] Sucralfate 1 gm [Carafate 1 GM] 1 g PO DAILY 06/10/21 [History] Hx Tetanus, Diphtheria Vaccination/Date Given: No (unknown) Hx Influenza Vaccination/Date Given: Yes Hx Pneumococcal Vaccination/Date Given: No Travel Risk - International Travel Have you traveled outside of the country in past 3 weeks: No - Coronavirus Screening Are you exhibiting any of the following symptoms?: No Close contact with a COVID-19 positive Pt in past 14-21 Days: No - Vaccine Status Have you recieved a Covid-19 vaccination: Yes 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 - Vaccination Dates Date of 2cond Vaccination (if applicable): 08/18/20 Comment: BOOSTER 04/03/21 - Review of Systems Constitutional: No Symptoms, Fatigue, Lethargy Eyes: No Symptoms Ears, Nose, & Throat: No Symptoms Respiratory: No Symptoms, Cough, Dyspnea, Dyspnea on Exertion (ROMERO) Cardiac: No Symptoms Abdominal/Gastrointestinal: No Symptoms Genitourinary Symptoms: No Symptoms Musculoskeletal: No Symptoms Skin: No Symptoms Neurological: No Symptoms Psychological: No Symptoms Endocrine: No Symptoms Hematologic/Lymphatic: No Symptoms Immunological/Allergic: No Symptoms - Past Medical History Pertinent Past Medical History: Yes Neurological History: No Pertinent History ENT History: No Pertinent History Cardiac History: No Pertinent History Respiratory History: Bronchitis, COPD, Pneumonia Endocrine Medical History: No Pertinent History Musculoskeletal History: Arthritis, Other GI Medical History: GERD, GI Bleed, Ulcer, Other History: No Pertinent History Psycho-Social History: No Pertinent History Male Reproductive Disorders: No Pertinent History Other Medical History: few fractures - Past Surgical History Past Surgical History: Yes Neuro Surgical History: No Pertinent History Cardiac: No Pertinent History Respiratory: No Pertinent History Gastrointestinal: Other Genitourinary: No Pertinent History Musculoskeletal: No Pertinent History Male Surgical History: No Pertinent History Other Surgical History: Had Surgery on bleeding Ulcer - Social History Smoking Status: Heavy tobacco smoker How long have you smoked: 50 + Exposure to second hand smoke: Yes Alcohol Use: Chronic (daily throughout the day including work time) Drug Use: none Patient Lives Alone: No Significant Family History: no pertinent family hx - Nursing Vital Signs Nursing Vital Signs: Initial Vital Signs Temperature 97.7 F 06/14/21 00:59 Pulse Rate 97 H 06/14/21 00:59 Respiratory Rate 28 H 06/14/21 00:59 Blood Pressure 161/80 06/14/21 00:59 O2 Sat by Pulse Oximetry 98 06/14/21 00:59 Pain Scale Pain Intensity 0 Hypertensive - Physical Exam General Appearance: no apparent distress, anxiety Eye Exam: PERRL/EOMI, eyes nml inspection Ears, Nose, Throat Exam: hearing grossly normal, normal ENT inspection, normal pharynx Neck Exam: normal inspection, non-tender, supple, full range of motion, No Brudzinski, No Kernig's, No meningismus, No carotid bruit Respiratory Exam: airway intact, wheezing (Scazttered wheezes B), No respiratory distress Cardiovascular/Chest Exam: normal heart sounds, regular rate/rhythm, No murmur Abdominal/Gastrointestinal Exam: soft, normal bowel sounds, No tenderness Extremity Exam: non-tender, normal range of motion, normal inspection, normal capillary refill, no calf tenderness, no pedal edema Peripheral Pulses Exam: carotid (R): 2+, carotid (L): 2+ Neurologic Exam: alert, 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, cooperative, applique sewer II-XII nml as tested, normal mood/affect, nml cerebellar function, nml station & gait, sensation nml, No motor deficits, No sensory deficit Skin Exam: normal color, warm, dry, No rash Lymphatic Exam: No adenopathy SpO2 Interpretation: normal SpO2: 97 O2 Delivery: Room Air - Course Nursing assessment & vital signs reviewed: Yes EKG Interpreted by Me: RATE (NSR/Rate93/Normal QT-QTc/Flat T waves/LAFB/Poor R wave progression) - Radiology Exams Chest X-ray Interpretation: Interpreted by me Ordered Tests: Active Orders 24 hr Category Date Time Status EKG-ER Only STAT Care 06/14/21 01:01 Active CHEST 1 VIEW (PORTABLE) Stat Exams 06/14/21 01:01 Taken CBC W DIFF Stat Lab 06/14/21 01:15 Completed CMP Stat Lab 06/14/21 01:20 Completed COVID AG-BINAX NOW RAPID TEST Stat Lab 06/14/21 01:20 Completed NT PRO BNP Stat Lab 06/14/21 01:20 Completed PROTIME WITH INR Stat Lab 06/14/21 01:15 Completed PTT Stat Lab 06/14/21 01:15 Completed TROPONIN Q3H Lab 06/14/21 01:15 Completed TROPONIN Q3H Lab 06/14/21 03:30 Completed TROPONIN Q3H Lab 06/14/21 07:15 Ordered TROPONIN Q3H Lab 06/14/21 10:15 Ordered TROPONIN Q3H Lab 06/14/21 13:15 Ordered Medication Summary Discontinued Medications Generic Name Dose Route Start Last Admin Trade Name Erin PRN Reason Stop Dose Admin Dexamethasone Sodium Phosphate 10 mg 06/14/21 01:08 06/14/21 01:23 Dexamethasone Sod Phosphate 10 Mg/Ml IV 06/14/21 01:09 10 mg STAT ONE Administration Dexamethasone Sodium Phosphate Confirm 06/14/21 01:17 Dexamethasone Sod Phosphate 10 Mg/Ml Administered 06/14/21 01:18 Dose 10 mg .ROUTE .Kickplay-Answer.To ONE Lab/Rad Data: Laboratory Result Diagrams 06/14/21 01:15 06/14/21 01:20 Laboratory Results 06/14/21 06/14/21 06/14/21 Range/Units 03:30 01:20 01:20 WBC (4.0-10.5) K/mm3 RBC (4.1-5.6) M/mm3 Hgb (12.5-18.0) gm/dl Hct (42-50) % MCV (78-100) fl MCH (26-32) pg MCHC (32-36) g/dl RDW (11.5-14.0) % Plt Count (150-450) K/mm3 MPV (7.5-11.0) fl Gran % (36.0-66.0) % Eos # (Auto) (0-0.5) Absolute Lymphs (auto) (1.0-4.6) Absolute Monos (auto) (0.0-1.3) Lymphocytes % (24.0-44.0) % Monocytes % (0.0-12.0) % Eosinophils % (0.00-5.0) % Basophils % (0.0-0.4) % Absolute Granulocytes (1.4-6.9) Basophils # (0-0.4) PT (9.4-12.5) SECONDS INR (0.8-3.0) APTT (25.1-36.5) SECONDS Sodium 136 L (137-145) mmol/L Potassium 4.1 (3.5-5.1) mmol/L Chloride 97 L (98-107) mmol/L Carbon Dioxide 29 (22-30) mmol/L Anion Gap 14.0 (5-15) MEQ/L BUN 19 (9-20) mg/dL Creatinine 0.90 (0.66-1.25) mg/dL Estimated GFR > 60.0 ML/MIN Glucose 133 H (74-106) mg/dL Calcium 9.6 (8.4-10.2) mg/dL Total Bilirubin 0.40 (0.2-1.3) mg/dL AST 24 (17-59) U/L ALT 19 (0-50) U/L Alkaline Phosphatase 46 (38-126) U/L Troponin I 0.027 (0.000-0.034) ng/mL NT-Pro-B Natriuret Pep 363 (0-900) pg/mL Serum Total Protein 7.1 (6.3-8.2) g/dL Albumin 4.4 (3.5-5.0) g/dL SARS-CoV-2 Ag (Rapid) NEGATIVE (NEGATIVE) 06/14/21 06/14/21 06/14/21 Range/Units 01:15 01:15 01:15 WBC 11.1 H (4.0-10.5) K/mm3 RBC 3.97 L (4.1-5.6) M/mm3 Hgb 10.7 L (12.5-18.0) gm/dl Hct 35.3 L (42-50) % MCV 88.9 (78-100) fl MCH 27.0 (26-32) pg MCHC 30.3 L (32-36) g/dl RDW 16.4 H (11.5-14.0) % Plt Count 372 (150-450) K/mm3 MPV 8.9 (7.5-11.0) fl Gran % 76.8 H (36.0-66.0) % Eos # (Auto) 0.03 (0-0.5) Absolute Lymphs (auto) 1.67 (1.0-4.6) Absolute Monos (auto) 0.86 (0.0-1.3) Lymphocytes % 15.1 L (24.0-44.0) % Monocytes % 7.8 (0.0-12.0) % Eosinophils % 0.3 (0.00-5.0) % Basophils % 0.0 (0.0-0.4) % Absolute Granulocytes 8.52 H (1.4-6.9) Basophils # 0 (0-0.4) PT 10.7 (9.4-12.5) SECONDS INR 0.91 (0.8-3.0) APTT 24.6 L (25.1-36.5) SECONDS Sodium (137-145) mmol/L Potassium (3.5-5.1) mmol/L Chloride (98-107) mmol/L Carbon Dioxide (22-30) mmol/L Anion Gap (5-15) MEQ/L BUN (9-20) mg/dL Creatinine (0.66-1.25) mg/dL Estimated GFR ML/MIN Glucose (74-106) mg/dL Calcium (8.4-10.2) mg/dL Total Bilirubin (0.2-1.3) mg/dL AST (17-59) U/L ALT (0-50) U/L Alkaline Phosphatase (38-126) U/L Troponin I 0.028 (0.000-0.034) ng/mL NT-Pro-B Natriuret Pep (0-900) pg/mL Serum Total Protein (6.3-8.2) g/dL Albumin (3.5-5.0) g/dL SARS-CoV-2 Ag (Rapid) (NEGATIVE) - Progress Progress: improved Progress Note: 06/14/21 03:59 10mg IV Decadron Pt slept most of visit in [facility] Sats high 90's on 3L NC during entire stay Counseled pt/family regarding: lab results, diagnosis, need for follow-up, rad results - Departure Departure Disposition: Home Clinical Impression: COPD exacerbation, Tobacco abuse Condition: Stable Critical Care Time: No Referrals: MITZY LOOMIS [Primary Care Provider] - Follow up/PCP as directed Instructions: Chronic Obstructive Pulmonary Disease, Shortness of Breath (Dyspnea) (DC), Exacerbation of COPD (DC) Additional Instructions: Follow up with your family MD Quit smoking Return to ER as needed
[2021-06-14 03:41] VITALS: BP 161/94
[2021-06-14] MEDS ORDERED: DUONEB 0.5-3 MG/3 ml Neb IH ONE ×2 (04:18→04:39)
[2021-06-14 04:43] VITALS: PULSE 116; O2SAT 96
--- NOTE | 2021-06-14 08:51 | XRAY ---
Indication: Dyspnea. Comparison: June 09, 2021. Portable apical lordotic chest remains hyperinflated with minimal left base fibrosis/scarring and a few incidental tiny calcified granulomas. Heart not enlarged. No new/acute findings.
== END 2021-06-14 04:36 | disposition home or self-care (01) ==
LOC: ED 00:56
DX: J44.1 Chronic obstructive pulmonary disease with (acute) exacerbation (principal); F17.210 Nicotine dependence, cigarettes, uncomplicated; Z99.81 Dependence on supplemental oxygen; R05.3 Chronic cough; R53.1 Weakness; K21.9 Gastro-esophageal reflux disease without esophagitis; Z79.899 Other long term (current) drug therapy
CPT/HCPCS: 36000; 36415; 71045; 80053; 83880; 84484; 85025; 85610; 85730; 93005; 94640; 96374; 99000; 99284; J1100; A9270-GY

== ENCOUNTER 2024-08-01 20:24 | Observation (INO) | payer MEDICARE, OTHER ==
[2024-08-01] MEDS ORDERED: DUONEB 0.5-3 MG/3 ml Neb IH ONE ×2 (20:28→20:29)
--- NOTE | 2024-08-01 20:29 | ERPHSYRPT ---
- History of Present Illness Time Seen by Provider: 08/01/24 20:29 Source: patient, EMS, old records Exam Limitations: no limitations Physician History: Is a 69-year-old white male patient of Dr. Guerra who arrives by the paramedics secondary to 3 to 4-day history of worsening shortness of breath and coughing up of clear sputum. Patient ordinarily wears 3 L of oxygen via nasal cannula for his COPD. When the paramedics arrived, his oxygen saturation was 90% on his 3 L of oxygen. Patient denies chest pain. Patient has a history of recurrent bronchitis, coronary artery disease, gastroesophageal reflux disease and peptic ulcer disease. Timing/Duration: today Severity of Dyspnea-Max: moderate Severity of Dyspnea-Current: moderate Possible Cause: occasional episodes Modifying Factors: Improves With: activity (Worsens), coughing (Since), oxygen (Improves) Associated Symptoms: cough, No chest pain/discomfort Allergies/Adverse Reactions: No Known Drug Allergies Allergy (Verified 08/01/24 20:37) Home Medications: Albuterol Sulfate [Proair Hfa] 2 puff IH UD 03/03/19 [History] Albuterol 2.5 mg/3 ml Neb [Proventil 2.5 mg/3 ml Neb] 2.5 mg IH Q4-6HPRN PRN 04/14/21 [History] Mometasone Furoate [Asmanex Hfa] 1 puff IH BID 08/01/24 [History] Hx Tetanus, Diphtheria Vaccination/Date Given: No (unknown) Hx Influenza Vaccination/Date Given: Yes Hx Pneumococcal Vaccination/Date Given: No Travel Risk - International Travel Have you traveled outside of the country in past 3 weeks: No - Emerging Infectious Disease Are you exhibiting symptoms associated with any current EIDs: Yes Symptoms: Cough: New Onset, Shortness of Breath - Review of Systems Constitutional: No Symptoms Eyes: No Symptoms Ears, Nose, & Throat: No Symptoms Respiratory: Cough, Dyspnea Cardiac: No Symptoms Abdominal/Gastrointestinal: No Symptoms Genitourinary Symptoms: No Symptoms Musculoskeletal: No Symptoms Skin: No Symptoms Neurological: No Symptoms Psychological: No Symptoms Endocrine: No Symptoms Hematologic/Lymphatic: No Symptoms Immunological/Allergic: No Symptoms All Other Systems: Reviewed and Negative - Past Medical History Pertinent Past Medical History: Yes Neurological History: No Pertinent History ENT History: No Pertinent History Cardiac History: No Pertinent History Respiratory History: Bronchitis, COPD, Pneumonia Endocrine Medical History: No Pertinent History Musculoskeletal History: Arthritis, Other GI Medical History: GERD, GI Bleed, Ulcer, Other History: No Pertinent History Psycho-Social History: No Pertinent History Male Reproductive Disorders: No Pertinent History Other Medical History: few fractures - Past Surgical History Past Surgical History: Yes Neuro Surgical History: No Pertinent History Cardiac: No Pertinent History Respiratory: No Pertinent History Gastrointestinal: Other Genitourinary: No Pertinent History Musculoskeletal: No Pertinent History Male Surgical History: No Pertinent History Other Surgical History: Had Surgery on bleeding Ulcer Significant Family History: no pertinent family hx - Social History Smoking Status: Heavy tobacco smoker How long have you smoked: 50 + Exposure to second hand smoke: Yes Alcohol Use: Chronic (daily throughout the day including work time) Drug Use: none Patient Lives Alone: No - Nursing Vital Signs Nursing Vital Signs: Initial Vital Signs Temperature 99.4 F 08/01/24 20:25 Pulse Rate 118 H 08/01/24 20:25 Respiratory Rate 30 H 08/01/24 20:25 Blood Pressure 188/87 08/01/24 20:25 O2 Sat by Pulse Oximetry 95 08/01/24 20:25 Pain Scale Pain Intensity 0 - Physical Exam General Appearance: mild distress, alert, anxiety, thin Eye Exam: PERRL/EOMI, eyes nml inspection Ears, Nose, Throat Exam: hearing grossly normal, normal ENT inspection, normal pharynx Neck Exam: normal inspection, non-tender, supple, full range of motion Respiratory Exam: respiratory distress (Mild), airway intact, diminished breath sounds (Bilateral), wheezing (Bilateral mild expiratory), No chest tenderness Cardiovascular/Chest Exam: tachycardia Abdominal/Gastrointestinal Exam: soft, normal bowel sounds, No tenderness Rectal Exam: not done Extremity Exam: non-tender, normal range of motion, normal inspection, no calf tenderness, no pedal edema, pelvis stable Neurologic Exam: alert, 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, cooperative, 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 tested, sensation nml Lymphatic Exam: No adenopathy SpO2 Interpretation: borderline oxygenation O2 Delivery: Nasal Cannula (3 L oxygen via nasal cannula) - Course Nursing assessment & vital signs reviewed: Yes EKG Interpreted by Me: RATE Ordered Tests: Active Orders 24 hr Category Date Time Status Staff [employer] Officer STAT Care 08/01/24 20:35 Active EKG-ER Only STAT Care 08/01/24 20:35 Active IV Insertion STAT Care 08/01/24 20:35 Active Pulse Oximetry (ED) STAT Care 08/01/24 20:35 Active CHEST 1 VIEW (PORTABLE) Stat Exams 08/01/24 20:35 Taken CHEST WITH CONTRAST [CT] Stat Exams 08/01/24 22:47 Taken BLOOD CULTURE Stat Lab 08/01/24 20:56 Received CBC W DIFF Stat Lab 08/01/24 20:40 Completed CMP Stat Lab 08/01/24 20:40 Completed D-DIMER QUANTITATIVE Stat Lab 08/01/24 20:20 Completed Lactic Acid Stat Lab 08/01/24 20:35 Completed Lactic Acid Stat Lab 08/01/24 22:46 Received MAGNESIUM Stat Lab 08/01/24 20:40 Completed NT PRO BNPII Stat Lab 08/01/24 20:40 Completed PROCALCITONIN Stat Lab 08/01/24 20:20 Completed TROPONIN Q4H Lab 08/01/24 20:40 Completed TROPONIN Q4H Lab 08/02/24 01:05 Received TROPONIN Q4H Lab 08/02/24 04:45 Ordered Respiratory Therapy Assessment DAILY RT 08/01/24 20:30 Active Transfer Order Routine Transfer 08/02/24 Ordered Medication Summary Discontinued Medications Generic Name Dose Route Start Last Admin Trade Name Freq PRN Reason Stop Dose Admin Albuterol/Ipratropium Confirm 08/01/24 20:28 Ipratropium/Albuterol Sulfate 3 Ml Ampul.Neb Administered 08/01/24 20:29 Dose 3 ml IH .STK-MED ONE Albuterol/Ipratropium 3 ml 08/01/24 20:29 Ipratropium/Albuterol Sulfate 3 Ml Ampul.Neb IH 08/01/24 20:30 STAT ONE Sodium Chloride 1,000 mls @ 999 mls/hr 08/01/24 22:15 08/01/24 23:22 Sodium Chloride 0.9% 1000 Ml IV 08/01/24 23:15 Infused .Q1H1M STA Infusion Sodium Chloride Confirm 08/01/24 22:18 Sodium Chloride 0.9% 1000 Ml Administered 08/01/24 22:19 Dose 1,000 mls @ ud .ROUTE .STK-MED ONE Levalbuterol HCl 1.25 mg 08/01/24 20:31 08/01/24 20:35 Levalbuterol Hcl 1.25 Mg/0.5 Ml Neb IH 08/01/24 20:32 1.25 mg STAT ONE Administration Levalbuterol HCl Confirm 08/01/24 20:32 Levalbuterol Hcl 1.25 Mg/0.5 Ml Neb Administered 08/01/24 20:33 Dose 1.25 mg IH .STK-MED ONE Lab/Rad Data: Laboratory Result Diagrams 08/01/24 20:40 08/01/24 20:40 Laboratory Results 08/01/24 08/01/24 08/01/24 Range/Units 21:04 20:40 20:40 WBC (4.23-9.07) x10^3/uL RBC (4.63-6.08) x10^6/uL Hgb (13.7-17.5) g/dL Hct (40.1-51.0) % MCV (79.0-92.2) fL MCH (25.7-32.2) pg MCHC (32.3-36.5) g/dL RDW (11.6-14.4) % Plt Count (163-337) x10^3/uL MPV (9.4-12.4) fL Gran % (34.0-67.9) % Immature Gran % (Auto) (0.001-0.429) % Nucleat RBC Rel Count (0.00-0.2) % Eos # (Auto) (0.04-0.54) x10^3/uL Immature Gran # (Auto) (0.001-0.031) x10^3u/L Absolute Lymphs (auto) (1.32-3.57) x10^3/uL Absolute Monos (auto) (0.30-0.82) x10^3/uL Absolute Nucleated RBC (0.00-0.012) x10^3u/L Lymphocytes % (21.8-53.1) % Monocytes % (5.3-12.2) % Eosinophils % (0.8-7.0) % Basophils % (0.2-1.2) % Absolute Granulocytes (1.78-5.38) x10^3/uL Basophils # (0.01-0.08) x10^3/uL D-Dimer (0.0-0.50) mg/L Sodium 136 (135-145) mmol/L Potassium 4.2 (3.5-5.1) mmol/L Chloride 97 L (98-107) mmol/L Carbon Dioxide 28 (22-30) mmol/L Anion Gap 15.1 H (5-15) MEQ/L BUN 12 (9-20) mg/dL Creatinine 0.77 (0.66-1.25) mg/dL Estimated GFR 95.7 ML/MIN Glucose 122 H (74-106) mg/dL Lactic Acid (0.4-2.0) Calcium 9.3 (8.4-10.2) mg/dL Magnesium 1.9 (1.6-2.3) mg/dL Total Bilirubin 0.60 (0.2-1.3) mg/dL AST 42 (17-59) U/L ALT 25 (0-50) U/L Alkaline Phosphatase 58 (38-126) U/L Troponin I < 0.012 (0.000-0.033) ng/mL NT-Pro-B Natriuret Pep 51.3 (<300) pg/mL Serum Total Protein 8.3 H (6.3-8.2) g/dL Albumin 5.0 (3.5-5.0) g/dL Procalcitonin (0.030-0.080) ng/mL Influenza Type A Ag NEGATIVE (NEGATIVE) Influenza Type B Ag NEGATIVE (NEGATIVE) RSV (PCR) NEGATIVE (NEGATIVE) SARS-CoV-2 (PCR) NEGATIVE (NEGATIVE) 08/01/24 08/01/24 08/01/24 Range/Units 20:40 20:35 20:20 WBC 11.9 H (4.23-9.07) x10^3/uL RBC 4.48 L (4.63-6.08) x10^6/uL Hgb 12.1 L (13.7-17.5) g/dL Hct 39.1 L (40.1-51.0) % MCV 87.3 (79.0-92.2) fL MCH 27.0 (25.7-32.2) pg MCHC 30.9 L (32.3-36.5) g/dL RDW 15.4 H (11.6-14.4) % Plt Count 264 (163-337) x10^3/uL MPV 9.4 (9.4-12.4) fL Gran % 78.2 H (34.0-67.9) % Immature Gran % (Auto) 0.3 (0.001-0.429) % Nucleat RBC Rel Count 0.0 (0.00-0.2) % Eos # (Auto) 0.13 (0.04-0.54) x10^3/uL Immature Gran # (Auto) 0.04 H (0.001-0.031) x10^3u/L Absolute Lymphs (auto) 1.23 L (1.32-3.57) x10^3/uL Absolute Monos (auto) 1.11 H (0.30-0.82) x10^3/uL Absolute Nucleated RBC 0.00 (0.00-0.012) x10^3u/L Lymphocytes % 10.3 L (21.8-53.1) % Monocytes % 9.3 (5.3-12.2) % Eosinophils % 1.1 (0.8-7.0) % Basophils % 0.8 (0.2-1.2) % Absolute Granulocytes 9.32 H (1.78-5.38) x10^3/uL Basophils # 0.09 H (0.01-0.08) x10^3/uL D-Dimer 0.79 H* (0.0-0.50) mg/L Sodium (135-145) mmol/L Potassium (3.5-5.1) mmol/L Chloride (98-107) mmol/L Carbon Dioxide (22-30) mmol/L Anion Gap (5-15) MEQ/L BUN (9-20) mg/dL Creatinine (0.66-1.25) mg/dL Estimated GFR ML/MIN Glucose (74-106) mg/dL Lactic Acid 2.1 H (0.4-2.0) Calcium (8.4-10.2) mg/dL Magnesium (1.6-2.3) mg/dL Total Bilirubin (0.2-1.3) mg/dL AST (17-59) U/L ALT (0-50) U/L Alkaline Phosphatase (38-126) U/L Troponin I (0.000-0.033) ng/mL NT-Pro-B Natriuret Pep (<300) pg/mL Serum Total Protein (6.3-8.2) g/dL Albumin (3.5-5.0) g/dL Procalcitonin (0.030-0.080) ng/mL Influenza Type A Ag (NEGATIVE) Influenza Type B Ag (NEGATIVE) RSV (PCR) (NEGATIVE) SARS-CoV-2 (PCR) (NEGATIVE) 08/01/24 Range/Units 20:20 WBC (4.23-9.07) x10^3/uL RBC (4.63-6.08) x10^6/uL Hgb (13.7-17.5) g/dL Hct (40.1-51.0) % MCV (79.0-92.2) fL MCH (25.7-32.2) pg MCHC (32.3-36.5) g/dL RDW (11.6-14.4) % Plt Count (163-337) x10^3/uL MPV (9.4-12.4) fL Gran % (34.0-67.9) % Immature Gran % (Auto) (0.001-0.429) % Nucleat RBC Rel Count (0.00-0.2) % Eos # (Auto) (0.04-0.54) x10^3/uL Immature Gran # (Auto) (0.001-0.031) x10^3u/L Absolute Lymphs (auto) (1.32-3.57) x10^3/uL Absolute Monos (auto) (0.30-0.82) x10^3/uL Absolute Nucleated RBC (0.00-0.012) x10^3u/L Lymphocytes % (21.8-53.1) % Monocytes % (5.3-12.2) % Eosinophils % (0.8-7.0) % Basophils % (0.2-1.2) % Absolute Granulocytes (1.78-5.38) x10^3/uL Basophils # (0.01-0.08) x10^3/uL D-Dimer (0.0-0.50) mg/L Sodium (135-145) mmol/L Potassium (3.5-5.1) mmol/L Chloride (98-107) mmol/L Carbon Dioxide (22-30) mmol/L Anion Gap (5-15) MEQ/L BUN (9-20) mg/dL Creatinine (0.66-1.25) mg/dL Estimated GFR ML/MIN Glucose (74-106) mg/dL Lactic Acid (0.4-2.0) Calcium (8.4-10.2) mg/dL Magnesium (1.6-2.3) mg/dL Total Bilirubin (0.2-1.3) mg/dL AST (17-59) U/L ALT (0-50) U/L Alkaline Phosphatase (38-126) U/L Troponin I (0.000-0.033) ng/mL NT-Pro-B Natriuret Pep (<300) pg/mL Serum Total Protein (6.3-8.2) g/dL Albumin (3.5-5.0) g/dL Procalcitonin 0.070 (0.030-0.080) ng/mL Influenza Type A Ag (NEGATIVE) Influenza Type B Ag (NEGATIVE) RSV (PCR) (NEGATIVE) SARS-CoV-2 (PCR) (NEGATIVE) - Progress Progress: improved, re-examined Air Movement: fair Progress Note: 08/01/24 22:22 My medical decision making and the assignment of moderate to high complexity of this patient's medical issue today is based on review of the patient's past medical history, review of the patient's medication list, review the patient drug allergy list, history present illness and physical findings on examination. The workup includes placement of intravenous line, respiratory therapy consul tation/management, CBC, CMP, BNP, troponin level, twelve-lead EKG, chest x-ray, viral swabs, D-dimer, procalcitonin. The differential diagnosis includes but is not limited to myocardial infarction, arrhythmia, congestive heart failure exacerbation, COPD exacerbation, upper respiratory infection, pneumonia, pulmonary embolus 08/02/24 00:36 I interpreted the patient's laboratory data results. Based on his laboratory data results patient does have a mild leukocytosis and a mild left shift. He had an elevated D-dimer of 0.[address] we ordered a CT scan of the chest with contrast. I interpreted the preliminary report of the patient's chest x-ray. I see chronic changes but no acute infiltrate or evidence of any acute cardiopulmonary process. I did speak with Dr. Malone, our telehospitalist on-call. I reviewed the patient's past medical history, presenting complaint, physical findings on e xamination, workup results and the patient response to our interventions. Dr. Malone is aware that we are waiting for the CT scan of the chest with contrast report. He will be contacted by me if there is evidence of pneumonia and/or pulmonary embolus. Otherwise the patient clinical impression is COPD exacerbation and we will place him in observation and provide respiratory therapy intervention, oxygen supplementation, intravenous steroids and repeat labs later this morning. 08/02/24 01:[address] scan of the chest with contrast was interpreted by the radiologist. The impression states no pulmonary embolus. COPD changes present. No other acute cardiopulmonary processes Blood Culture(s) Obtained: Yes Counseled pt/family regarding: lab results, diagnosis, rad results Medical Desision Making - Independent Historian Additional History obtained from: Treating Engineer/EMT - External Record(s) Reviewed Records reviewed as a part of evaluation & management: Inpatient - Discussion of managment Care discussed with:: hospitalist Reviewed:: Test results, Need for additional workup Agreed on:: Treatment plan, place in obs - Diagnostic Testing Diagnostic test were ordered, analyzed, and reviewed by me: Yes Radiological Interpretation: Interpreted by me, Reviewed by me, Teleradiologist Report - Risk of complications The pt has a high risk of morbidity or mortality based on: Decision regarding hospitilization or escalation of hosp level of care - Departure Departure Disposition: Observation Clinical Impression: COPD exacerbation, Hypoxia, Leukocytosis Condition: Fair Critical Care Time: Yes Critical Care Time(excluding separately billable procedures): Critical 30-74 mins (45) Referrals: MITZY GUERRA [Primary Care Provider] - Follow up/PCP as directed Instructions: Chronic Obstructive Pulmonary Disease
[2024-08-01] MEDS ORDERED: Xopenex 1.25 MG/0.5 ML UD NEBULE IH ONE (20:32)
[2024-08-01] MEDS: Xopenex 1.25 MG/0.5 ML UD NEBULE IH ONE (20:35)
[2024-08-01 20:50] LABS: Absolute Neutrophil Ct (ANC) 9.32 x10^3/uL (1.78-5.38); BASOPHIL % 0.8 % (0.2-1.2); Basophil (Absolute #) 0.09 x10^3/uL (0.01-0.08); Eosinophil % 1.1 % (0.8-7.0); Eosinophil (Absolute #) 0.13 x10^3/uL (0.04-0.54); Hematocrit 39.1 % (40.1-51.0); Hemoglobin 12.1 g/dL (13.7-17.5); IMMATURE GRAN # 0.04 x10^3u/L (0.001-0.031); IMMATURE GRAN % 0.3 % (0.001-0.429); Lymphocyte (Absolute #) 1.23 x10^3/uL (1.32-3.57); Lymphocytes % 10.3 % (21.8-53.1); Mean Cell Volume 87.3 fL (79.0-92.2); Mean Corpuscular Hgb Concent. 30.9 g/dL (32.3-36.5); Mean Platelet Volume 9.4 fL (9.4-12.4); Monocyte (Absolute #) 1.11 x10^3/uL (0.30-0.82); Monocytes % 9.3 % (5.3-12.2); Neutrophil % 78.2 % (34.0-67.9); Platelet Count 264 x10^3/uL (163-337); Red Blood Count 4.48 x10^6/uL (4.63-6.08); Red Cell Distribution Width 15.4 % (11.6-14.4); White Blood Count 11.9 x10^3/uL (4.23-9.07)
[2024-08-01 21:13] LABS: ANION GAP 15.1 MEQ/L (5-15); BILIRUBIN,TOTAL 0.6 mg/dL (0.2-1.3); Calcium 9.3 mg/dL (8.4-10.2); Creatinine 1 0.77 mg/dL (0.66-1.25); EST GLOMERULAR FILTRATION RATE 95.7 ML/MIN; MAGNESIUM 1.9 mg/dL (1.6-2.3); NT PRO BNPII 51.3 pg/mL (<300); Potassium 4.2 mmol/L (3.5-5.1); Total Protein 8.3 g/dL (6.3-8.2)
[2024-08-01 21:45] LABS: INFLUENZA A NEGATIVE (NEGATIVE); INFLUENZA B NEGATIVE (NEGATIVE); RESPIRATORY SYNCTIAL VIRUS NEGATIVE (NEGATIVE); SARS-CoV-2 Xpert Express NEGATIVE (NEGATIVE)
[2024-08-01] MEDS ORDERED: Sodium Chloride 0.9% 1000 ML 1,000 ML ONE (22:18)
[2024-08-01] MEDS: Sodium Chloride 0.9% 1000 ML 1,000 ML IV STA (22:22)
--- NOTE | 2024-08-02 01:10 | XRAY ---
CLINICAL HISTORY: SOB; hypoxia; elevated D-dimer COMPARISON: 04/14/2021 TECHNIQUE: Contiguous 3.[address] angiographic images of the chest were acquired with the administration of 100ml isovue 370 intravenous contrast. Coronal and sagittal reconstructions were obtained. One of these 3D techniques was utilized: Maximum Intensity Pixel (MIP), 3D Reconstructed Images, Volume Rendered Images, Surface Shaded Rendering. One of the following dose reduction techniques were utilized for this exam: Automated exposure control, adjustment of the mA and/or kV according to patient size, and use of iterative reconstruction. FINDINGS: Pulmonary Arteries: Pulmonary arteries are normal in size and opacification. No evidence of pulmonary embolism. No stenosis or filling defects. Aorta: The thoracic aorta shows atherosclerotic changes. Mediastinum: Few subcentimetric non-specific mediastinal nodes. Calcified right hilar nodes. Heart: Normal size and morphology of the heart. No pericardial effusion. Lungs: Re-demonstration of diffuse centrilobular emphysematous changes in both lung talley. Interval resolution of previously seen tiny nodular densities in bilateral lung talley. Stable 4 mm calcified nodule in superior segment of right lower lobe. Subpleural fibroatelectatic changes in medial segment of right middle lobe. Focal subpleural fibrotic nodularity in apical segment of right upper lobe posteriorly. No pleural effusion or thickening. Bones: Degenerative changes in spine. Soft Tissues: Normal appearance of the visualized soft tissues. No abnormal masses or fluid collections. Upper Abdomen: Unremarkable. IMPRESSION: 1. No evidence of acute pulmonary thromboembolism at present. 2. COPD changes. 3. Interval resolution of previously seen tiny nodular densities in bilateral lung talley. 4. Stable 4 mm calcified nodule in superior segment of right lower lobe. 5. Subpleural fibroatelectatic changes in medial segment of right middle lobe. 6. Focal subpleural fibrotic nodularity in apical segment of right upper lobe posteriorly. Electronically Signed by: Josué Reid MD. (08/02/2024 01:04:59 EDT)
[2024-08-02] MEDS ORDERED: Zofran 4 MG/2 ML VIAL IV PRN (02:16)
[2024-08-02] MEDS ORDERED: TYLENOL 325 MG PO PRN (02:16)
--- NOTE | 2024-08-02 02:39 | PCM.HP ---
History of Present Illness - Chief Complaint Chief Complaint: shortness of breath Date: 08/02/24 History of Present Illness: 69-year-old man with history of COPD on chronic 3 L oxygen, who presents with 4 to 5 days of progressive dyspnea on exertion and intermittent productive cough with low-grade fever. Patient denies any chest pain, nausea, diarrhea, myalgias, or sick contacts. No relief with increased use of his home nebulizer. He remains on his 3 L oxygen, but he noted that he had particular dyspnea with even minimal exertion, leading to him gasping for breath. Currently, he feels little better after getting nebs with EMS and in the ED. - Review of Systems All Other Systems: Reviewed and Negative (Except as per HPI) Medications & Allergies Home Medications: Home Medication List Albuterol Sulfate [Proair Hfa] 2 puff IH UD 03/03/19 [History Confirmed 08/01/24] Albuterol 2.5 mg/3 ml Neb [Proventil 2.5 mg/3 ml Neb] 2.5 mg IH Q4-6HPRN PRN 04/14/21 [History Confirmed 08/01/24] PANTOPRAZOLE 40 mg Tablet [Protonix 40MG Tablet] 40 mg PO QAM #30 tab 06/12/21 [Rx Confirmed 08/01/24] Mometasone Furoate [Asmanex Hfa] 1 puff IH BID 08/01/24 [History Confirmed 08/01/24] Allergies/Adverse Reactions: Allergies Allergy/AdvReac Type Severity Reaction Status Date / Time No Known Drug Allergies Allergy Verified 08/01/24 20:37 - Past Medical History Past Medical History: Yes Neurological History: No Pertinent History ENT History: No Pertinent History Cardiac History: No Pertinent History Respiratory History: COPD Endocrine Medical History: No Pertinent History Musculoskelatal History: Arthritis, Other GI Medical History: Ulcer History: No Pertinent History Pyscho-Social History: No Pertinent History Male Reproductive Disorders: No Pertinent History Comment: few fractures - Past Surgical History Past Surgical History: Yes Neuro Surgical History: No Pertinent History Cardiac History: No Pertinent History Respiratory Surgery: No Pertinent History GI Surgical History: Other Genitourinary Surgical Hx: No Pertinent History Musculskeletal Surgical Hx: No Pertinent History Male Surgical History: No Pertinent History Other Surgical History: Had Surgery on bleeding Ulcer Significant Family History: no pertinent family hx - Social History Smoking Status: Heavy tobacco smoker (2 pack per day) How long have you smoked: 50 + Exposure to second hand smoke: Yes Alcohol: Daily Drug Use: none - Social Determinants of Health Will the patient participate in the screening: Yes Do you worry about a steady place to live?: No Do you have any problems with any of the following?: No known problems In the past 12 months,have you had to go without utilities?: No Have you or anyone in your house had to go without enough: No Transportation Issues: No Has anyone in your support network made you feel unsafe?: No - Physical Exam Vital Signs: Vital Signs - 24 hr Temp Pulse Resp BP BP Pulse Ox 08/02/24 02:30 97.7 F 95 H 24 136/68 08/02/24 01:30 96 H 24 148/81 95 08/02/24 01:00 102 H 24 123/54 93 L 08/02/24 00:30 97 H 23 129/64 93 L 08/02/24 00:00 98 H 25 H 118/56 93 L 08/01/24 23:45 110 H 24 121/57 94 L 08/01/24 23:01 112 H 25 H 143/78 96 08/01/24 22:30 119 H 28 H 123/73 94 L 08/01/24 22:00 117 H 28 H 143/78 94 L 08/01/24 21:30 111 H 28 H 148/75 94 L 08/01/24 21:00 117 H 30 H 128/70 93 L 08/01/24 20:36 96 08/01/24 20:30 112 H 33 H 161/81 94 L 08/01/24 20:25 99.4 F 118 H 30 H 188/87 96 Physical Exam GEN: Sitting up in bed in no acute distress. HENT: Normocephalic, atraumatic. Moist mucous membranes. EYES: Normal inspection, anicteric sclera, extraocular movements intact. NECK: Supple, full range of motion CV: Regular rate and rhythm, no murmurs, no gallops. No JVD or edema. PULM: Mild tachypnea but no use of accessory muscles. Speaking in full sentences. Diffuse end expiratory wheezing. On 3 L oxygen by nasal cannula. ABD: Nondistended, nontender. MSK: No joint effusions, full range of motion SKIN: No rashes, normal color. NEURO: Face symmetric, no focal motor or sensory deficits. PSYCH: Alert, 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 Results - Labs Lab/Micro Results: Lab Results-Last 24 Hours 08/01/24 08/01/24 08/01/24 Range/Units 20:20 20:20 20:35 WBC (4.23-9.07) x10^3/uL RBC (4.63-6.08) x10^6/uL Hgb (13.7-17.5) g/dL Hct (40.1-51.0) % MCV (79.0-92.2) fL MCH (25.7-32.2) pg MCHC (32.3-36.5) g/dL RDW (11.6-14.4) % Plt Count (163-337) x10^3/uL MPV (9.4-12.4) fL Gran % (34.0-67.9) % Immature Gran % (Auto) (0.001-0.429) % Nucleat RBC Rel Count (0.00-0.2) % Eos # (Auto) (0.04-0.54) x10^3/uL Immature Gran # (Auto) (0.001-0.031) x10^3u/L Absolute Lymphs (auto) (1.32-3.57) x10^3/uL Absolute Monos (auto) (0.30-0.82) x10^3/uL Absolute Nucleated RBC (0.00-0.012) x10^3u/L Lymphocytes % (21.8-53.1) % Monocytes % (5.3-12.2) % Eosinophils % (0.8-7.0) % Basophils % (0.2-1.2) % Absolute Granulocytes (1.78-5.38) x10^3/uL Basophils # (0.01-0.08) x10^3/uL D-Dimer 0.79 H* (0.0-0.50) mg/L Sodium (135-145) mmol/L Potassium (3.5-5.1) mmol/L Chloride (98-107) mmol/L Carbon Dioxide (22-30) mmol/L Anion Gap (5-15) MEQ/L BUN (9-20) mg/dL Creatinine (0.66-1.25) mg/dL Estimated GFR ML/MIN Glucose (74-106) mg/dL Lactic Acid 2.1 H (0.4-2.0) Calcium (8.4-10.2) mg/dL Magnesium (1.6-2.3) mg/dL Total Bilirubin (0.2-1.3) mg/dL AST (17-59) U/L ALT (0-50) U/L Alkaline Phosphatase (38-126) U/L Troponin I (0.000-0.033) ng/mL NT-Pro-B Natriuret Pep (<300) pg/mL Serum Total Protein (6.3-8.2) g/dL Albumin (3.5-5.0) g/dL Procalcitonin 0.070 (0.030-0.080) ng/mL Influenza Type A Ag (NEGATIVE) Influenza Type B Ag (NEGATIVE) RSV (PCR) (NEGATIVE) SARS-CoV-2 (PCR) (NEGATIVE) 08/01/24 08/01/24 08/01/24 Range/Units 20:40 20:40 20:40 WBC 11.9 H (4.23-9.07) x10^3/uL RBC 4.48 L (4.63-6.08) x10^6/uL Hgb 12.1 L (13.7-17.5) g/dL Hct 39.1 L (40.1-51.0) % MCV 87.3 (79.0-92.2) fL MCH 27.0 (25.7-32.2) pg MCHC 30.9 L (32.3-36.5) g/dL RDW 15.4 H (11.6-14.4) % Plt Count 264 (163-337) x10^3/uL MPV 9.4 (9.4-12.4) fL Gran % 78.2 H (34.0-67.9) % Immature Gran % (Auto) 0.3 (0.001-0.429) % Nucleat RBC Rel Count 0.0 (0.00-0.2) % Eos # (Auto) 0.13 (0.04-0.54) x10^3/uL Immature Gran # (Auto) 0.04 H (0.001-0.031) x10^3u/L Absolute Lymphs (auto) 1.23 L (1.32-3.57) x10^3/uL Absolute Monos (auto) 1.11 H (0.30-0.82) x10^3/uL Absolute Nucleated RBC 0.00 (0.00-0.012) x10^3u/L Lymphocytes % 10.3 L (21.8-53.1) % Monocytes % 9.3 (5.3-12.2) % Eosinophils % 1.1 (0.8-7.0) % Basophils % 0.8 (0.2-1.2) % Absolute Granulocytes 9.32 H (1.78-5.38) x10^3/uL Basophils # 0.09 H (0.01-0.08) x10^3/uL D-Dimer (0.0-0.50) mg/L Sodium 136 (135-145) mmol/L Potassium 4.2 (3.5-5.1) mmol/L Chloride 97 L (98-107) mmol/L Carbon Dioxide 28 (22-30) mmol/L Anion Gap 15.1 H (5-15) MEQ/L BUN 12 (9-20) mg/dL Creatinine 0.77 (0.66-1.25) mg/dL Estimated GFR 95.7 ML/MIN Glucose 122 H (74-106) mg/dL Lactic Acid (0.4-2.0) Calcium 9.3 (8.4-10.2) mg/dL Magnesium 1.9 (1.6-2.3) mg/dL Total Bilirubin 0.60 (0.2-1.3) mg/dL AST 42 (17-59) U/L ALT 25 (0-50) U/L Alkaline Phosphatase 58 (38-126) U/L Troponin I < 0.012 (0.000-0.033) ng/mL NT-Pro-B Natriuret Pep 51.3 (<300) pg/mL Serum Total Protein 8.3 H (6.3-8.2) g/dL Albumin 5.0 (3.5-5.0) g/dL Procalcitonin (0.030-0.080) ng/mL Influenza Type A Ag (NEGATIVE) Influenza Type B Ag (NEGATIVE) RSV (PCR) (NEGATIVE) SARS-CoV-2 (PCR) (NEGATIVE) 08/01/24 08/01/24 08/02/24 Range/Units 21:04 22:46 01:05 WBC (4.23-9.07) x10^3/uL RBC (4.63-6.08) x10^6/uL Hgb (13.7-17.5) g/dL Hct (40.1-51.0) % MCV (79.0-92.2) fL MCH (25.7-32.2) pg MCHC (32.3-36.5) g/dL RDW (11.6-14.4) % Plt Count (163-337) x10^3/uL MPV (9.4-12.4) fL Gran % (34.0-67.9) % Immature Gran % (Auto) (0.001-0.429) % Nucleat RBC Rel Count (0.00-0.2) % Eos # (Auto) (0.04-0.54) x10^3/uL Immature Gran # (Auto) (0.001-0.031) x10^3u/L Absolute Lymphs (auto) (1.32-3.57) x10^3/uL Absolute Monos (auto) (0.30-0.82) x10^3/uL Absolute Nucleated RBC (0.00-0.012) x10^3u/L Lymphocytes % (21.8-53.1) % Monocytes % (5.3-12.2) % Eosinophils % (0.8-7.0) % Basophils % (0.2-1.2) % Absolute Granulocytes (1.78-5.38) x10^3/uL Basophils # (0.01-0.08) x10^3/uL D-Dimer (0.0-0.50) mg/L Sodium (135-145) mmol/L Potassium (3.5-5.1) mmol/L Chloride (98-107) mmol/L Carbon Dioxide (22-30) mmol/L Anion Gap (5-15) MEQ/L BUN (9-20) mg/dL Creatinine (0.66-1.25) mg/dL Estimated GFR ML/MIN Glucose (74-106) mg/dL Lactic Acid 1.3 (0.4-2.0) Calcium (8.4-10.2) mg/dL Magnesium (1.6-2.3) mg/dL Total Bilirubin (0.2-1.3) mg/dL AST (17-59) U/L ALT (0-50) U/L Alkaline Phosphatase (38-126) U/L Troponin I < 0.012 (0.000-0.033) ng/mL NT-Pro-B Natriuret Pep (<300) pg/mL Serum Total Protein (6.3-8.2) g/dL Albumin (3.5-5.0) g/dL Procalcitonin (0.030-0.080) ng/mL Influenza Type A Ag NEGATIVE (NEGATIVE) Influenza Type B Ag NEGATIVE (NEGATIVE) RSV (PCR) NEGATIVE (NEGATIVE) SARS-CoV-2 (PCR) NEGATIVE (NEGATIVE) - Radiology Impressions Radiology Exams & Impressions: Radiology Procedures Category Date Time Status CHEST 1 VIEW (PORTABLE) Stat Exams 08/01/24 20:35 Taken CHEST WITH CONTRAST [CT] Stat Exams 08/01/24 22:47 Completed Chest x-ray hyperinflated, with some bibasilar scarring, but no infiltrate, effusion, or edema CT chest no PE. Emphysematous changes with no evidence of infiltrate. (All images personally reviewed. - Other Procedures and Tests Respiratory Therapy 08/02/24 02:16 Oxygen Nasal Cannula 3 lpm Respiratory Therapy Consult ONCE Assessment/Plan (1) COPD exacerbation Current Visit: Yes Status: Acute Assessment & Plan: 69-year-old man with history of COPD and chronic hypoxic respiratory failure, here with acute COPD exacerbation. ## COPD exacerbation with borderline fever and mild leukocytosis, but no evidence of pneumonia on chest imaging. Patient remains on his chronic 3 L oxygen, but has diffuse wheezing on exam and some mild tachypnea. He was initially loaded with Solu-Medrol by EMS. Continue prednisone 40 mg daily DuoNeb q.4 hours PRN ## Chronic hypoxic respiratory failure patient remained on his baseline 3 L oxygen. Continue oxygen, titrate to maintain SpO2 between 91 to 94% ## History of peptic ulcer disease Continue Protonix daily CODE STATUS: Full code Prophylaxis: Encourage ambulation, low risk (Kahlil score 2) Diet: Regular Dispo: Place in observation, expect eventual discharge to home Entirety of encounter took place via live audio/video telemedicine device, with remote physician and patient in hospital, with the assistance of bedside nurse. Code(s): J44.1 - CHRONIC OBSTRUCTIVE PULMONARY DISEASE W (ACUTE) EXACERBATION Telemedicine Encounter - Telemedicine Encounter Telemedicine Encounter: "The entirety of this encounter was performed via Telemedicine" This visit was performed using real-time audio and video connection between my location and thepatients locationwith the assistance of a surrogateat the patients location. Written or verbal consent was obtained from the patient/guardian to perform this visit [facility] technology. Any patient questions regarding the telemedicine interaction were answered.
[2024-08-02] MEDS: DUONEB 0.5-3 MG/3 ml Neb IH PRN (03:15)
[2024-08-02 05:39] LABS: Hematocrit 37.4 % (40.1-51.0); Hemoglobin 11.4 g/dL (13.7-17.5); Mean Cell Volume 87.6 fL (79.0-92.2); Mean Corpuscular Hemoglobin 26.7 pg (25.7-32.2); Mean Corpuscular Hgb Concent. 30.5 g/dL (32.3-36.5); Platelet Count 235 x10^3/uL (163-337); Red Blood Count 4.27 x10^6/uL (4.63-6.08); Red Cell Distribution Width 15.7 % (11.6-14.4); White Blood Count 8.2 x10^3/uL (4.23-9.07)
[2024-08-02 05:52] LABS: ANION GAP 15.3 MEQ/L (5-15); Creatinine 1 0.67 mg/dL (0.66-1.25); EST GLOMERULAR FILTRATION RATE 99.8 ML/MIN; Potassium 4.1 mmol/L (3.5-5.1)
[2024-08-02 07:06] VITALS: BP 128/66; PULSE 94; RESP 20; TEMP 97.3
[2024-08-02 07:24] VITALS: O2SAT 92
--- NOTE | 2024-08-02 08:14 | XRAY ---
Indication: Short of breath. Comparison: June 14, 2021 Portable chest again demonstrates COPD and a few incidental tiny calcified granulomas. Heart not enlarged. Bony thorax intact again with osteopenia. No new/acute findings.
--- NOTE | 2024-08-02 09:03 | PCM.DS ---
Discharge Summary Date of Admission: 08/02/24 02:01 Date of Discharge: 08/02/24 Admitting Physician: EBONIE NG MD Primary Care Provider: MITZY LOOMIS Allergies Allergies No Known Drug Allergies Allergy (Verified 08/01/24 20:37) Hospital Summary - Hospital Course Hospital Course: Mr. Cuba is a 69-year-old male with a history of COPD and chronic hypoxic respiratory failure, who was admitted 08/02/24 with a 4- to 5-day history of progressive dyspnea on exertion, intermittent productive cough, and low-grade fever. He was treated in the ED with nebulizer treatments and Solu-Medrol, resulting in some improvement. On examination, he had diffuse wheezing and mild tachypnea but remained on his baseline 3 L oxygen with a stable SpO2 between 91-94%. Imaging showed COPD-related changes but no evidence of pneumonia or acute pulmonary thromboembolism. The patients symptoms improve and he is requesting discharge. Lab and vitals stable. A Medrol dose pack and azithromycin were prescribed for further management, and he was advised to follow up with his primary care provider next week. He will continue his home oxygen therapy and Protonix for his history of peptic ulcer disease. Discharge Note New Diagnosis: COPD exacerbation New Medications: Azithromycin/medrol dose pack Follow Up: PCP/pulm I spent 35 minutes [id number] with the patient on the day of discharge performing discharge exam, discussing hospital stay and discharge instructions with patient and caregivers, preparation of discharge records, prescriptions & referral forms and addressing any questions/concerns the patient had as documented above. - Vitals & Intake/Output Vital Signs: Vital Signs Temperature 97.3 F 08/02/24 07:06 Pulse Rate 94 H 08/02/24 07:06 Respiratory Rate 20 08/02/24 07:06 Blood Pressure 128/66 08/02/24 07:06 O2 Sat by Pulse Oximetry 92 L 08/02/24 07:20 Intake & Output: Intake & Output 07/30/24 07/31/24 08/01/24 08/02/24 11:59 11:59 11:59 11:59 Intake Total 340 Output Total 375 Balance -35 Weight 65.5 kg - Lab Result Diagrams: 08/02/24 05:28 08/02/24 05:28 Lab Results-Last 24 Hrs: Lab Results-Last 24 Hours 08/01/24 08/01/2408/01/25 Range/Units 20:20 20:20 20:35 WBC (4.23-9.07) x10^3/uL RBC (4.63-6.08) x10^6/uL Hgb (13.7-17.5) g/dL Hct (40.1-51.0) % MCV (79.0-92.2) fL MCH (25.7-32.2) pg MCHC (32.3-36.5) g/dL RDW (11.6-14.4) % Plt Count (163-337) x10^3/uL MPV (9.4-12.4) fL Gran % (34.0-67.9) % Immature Gran % (Auto) (0.001-0.429) % Nucleat RBC Rel Count (0.00-0.2) % Eos # (Auto) (0.04-0.54) x10^3/uL Immature Gran # (Auto) (0.001-0.031) x10^3u/L Absolute Lymphs (auto) (1.32-3.57) x10^3/uL Absolute Monos (auto) (0.30-0.82) x10^3/uL Absolute Nucleated RBC (0.00-0.012) x10^3u/L Lymphocytes % (21.8-53.1) % Monocytes % (5.3-12.2) % Eosinophils % (0.8-7.0) % Basophils % (0.2-1.2) % Absolute Granulocytes (1.78-5.38) x10^3/uL Basophils # (0.01-0.08) x10^3/uL D-Dimer 0.79 H* (0.0-0.50) mg/L Sodium (135-145) mmol/L Potassium (3.5-5.1) mmol/L Chloride (98-107) mmol/L Carbon Dioxide (22-30) mmol/L Anion Gap (5-15) MEQ/L BUN (9-20) mg/dL Creatinine (0.66-1.25) mg/dL Estimated GFR ML/MIN Glucose (74-106) mg/dL Lactic Acid 2.1 H (0.4-2.0) Calcium (8.4-10.2) mg/dL Magnesium (1.6-2.3) mg/dL Total Bilirubin (0.2-1.3) mg/dL AST (17-59) U/L ALT (0-50) U/L Alkaline Phosphatase (38-126) U/L Troponin I (0.000-0.033) ng/mL NT-Pro-B Natriuret Pep (<300) pg/mL Serum Total Protein (6.3-8.2) g/dL Albumin (3.5-5.0) g/dL Procalcitonin 0.070 (0.030-0.080) ng/mL Influenza Type A Ag (NEGATIVE) Influenza Type B Ag (NEGATIVE) RSV (PCR) (NEGATIVE) SARS-CoV-2 (PCR) (NEGATIVE) 08/01/24 08/01/24 08/01/24 Range/Units 20:40 20:40 20:40 WBC 11.9 H (4.23-9.07) x10^3/uL RBC 4.48 L (4.63-6.08) x10^6/uL Hgb 12.1 L (13.7-17.5) g/dL Hct 39.1 L (40.1-51.0) % MCV 87.3 (79.0-92.2) fL MCH 27.0 (25.7-32.2) pg MCHC 30.9 L (32.3-36.5) g/dL RDW 15.4 H (11.6-14.4) % Plt Count 264 (163-337) x10^3/uL MPV 9.4 (9.4-12.4) fL Gran % 78.2 H (34.0-67.9) % Immature Gran % (Auto) 0.3 (0.001-0.429) % Nucleat RBC Rel Count 0.0 (0.00-0.2) % Eos # (Auto) 0.13 (0.04-0.54) x10^3/uL Immature Gran # (Auto) 0.04 H (0.001-0.031) x10^3u/L Absolute Lymphs (auto) 1.23 L (1.32-3.57) x10^3/uL Absolute Monos (auto) 1.11 H (0.30-0.82) x10^3/uL Absolute Nucleated RBC 0.00 (0.00-0.012) x10^3u/L Lymphocytes % 10.3 L (21.8-53.1) % Monocytes % 9.3 (5.3-12.2) % Eosinophils % 1.1 (0.8-7.0) % Basophils % 0.8 (0.2-1.2) % Absolute Granulocytes 9.32 H (1.78-5.38) x10^3/uL Basophils # 0.09 H (0.01-0.08) x10^3/uL D-Dimer (0.0-0.50) mg/L Sodium 136 (135-145) mmol/L Potassium 4.2 (3.5-5.1) mmol/L Chloride 97 L (98-107) mmol/L Carbon Dioxide 28 (22-30) mmol/L Anion Gap 15.1 H (5-15) MEQ/L BUN 12 (9-20) mg/dL Creatinine 0.77 (0.66-1.25) mg/dL Estimated GFR 95.7 ML/MIN Glucose 122 H (74-106) mg/dL Lactic Acid (0.4-2.0) Calcium 9.3 (8.4-10.2) mg/dL Magnesium 1.9 (1.6-2.3) mg/dL Total Bilirubin 0.60 (0.2-1.3) mg/dL AST 42 (17-59) U/L ALT 25 (0-50) U/L Alkaline Phosphatase 58 (38-126) U/L Troponin I < 0.012 (0.000-0.033) ng/mL NT-Pro-B Natriuret Pep 51.3 (<300) pg/mL Serum Total Protein 8.3 H (6.3-8.2) g/dL Albumin 5.0 (3.5-5.0) g/dL Procalcitonin (0.030-0.080) ng/mL Influenza Type A Ag (NEGATIVE) Influenza Type B Ag (NEGATIVE) RSV (PCR) (NEGATIVE) SARS-CoV-2 (PCR) (NEGATIVE) 08/01/24 08/01/24 08/02/24 Range/Units 21:04 22:46 01:05 WBC (4.23-9.07) x10^3/uL RBC (4.63-6.08) x10^6/uL Hgb (13.7-17.5) g/dL Hct (40.1-51.0) % MCV (79.0-92.2) fL MCH (25.7-32.2) pg MCHC (32.3-36.5) g/dL RDW (11.6-14.4) % Plt Count (163-337) x10^3/uL MPV (9.4-12.4) fL Gran % (34.0-67.9) % Immature Gran % (Auto) (0.001-0.429) % Nucleat RBC Rel Count (0.00-0.2) % Eos # (Auto) (0.04-0.54) x10^3/uL Immature Gran # (Auto) (0.001-0.031) x10^3u/L Absolute Lymphs (auto) (1.32-3.57) x10^3/uL Absolute Monos (auto) (0.30-0.82) x10^3/uL Absolute Nucleated RBC (0.00-0.012) x10^3u/L Lymphocytes % (21.8-53.1) % Monocytes % (5.3-12.2) % Eosinophils % (0.8-7.0) % Basophils % (0.2-1.2) % Absolute Granulocytes (1.78-5.38) x10^3/uL Basophils # (0.01-0.08) x10^3/uL D-Dimer (0.0-0.50) mg/L Sodium (135-145) mmol/L Potassium (3.5-5.1) mmol/L Chloride (98-107) mmol/L Carbon Dioxide (22-30) mmol/L Anion Gap (5-15) MEQ/L BUN (9-20) mg/dL Creatinine (0.66-1.25) mg/dL Estimated GFR ML/MIN Glucose (74-106) mg/dL Lactic Acid 1.3 (0.4-2.0) Calcium (8.4-10.2) mg/dL Magnesium (1.6-2.3) mg/dL Total Bilirubin (0.2-1.3) mg/dL AST (17-59) U/L ALT (0-50) U/L Alkaline Phosphatase (38-126) U/L Troponin I < 0.012 (0.000-0.033) ng/mL NT-Pro-B Natriuret Pep (<300) pg/mL Serum Total Protein (6.3-8.2) g/dL Albumin (3.5-5.0) g/dL Procalcitonin (0.030-0.080) ng/mL Influenza Type A Ag NEGATIVE (NEGATIVE) Influenza Type B Ag NEGATIVE (NEGATIVE) RSV (PCR) NEGATIVE (NEGATIVE) SARS-CoV-2 (PCR) NEGATIVE (NEGATIVE) 08/02/24 08/02/24 Range/Units 05:28 05:28 WBC 8.2 (4.23-9.07) x10^3/uL RBC 4.27 L (4.63-6.08) x10^6/uL Hgb 11.4 L (13.7-17.5) g/dL Hct 37.4 L (40.1-51.0) % MCV 87.6 (79.0-92.2) fL MCH 26.7 (25.7-32.2) pg MCHC 30.5 L (32.3-36.5) g/dL RDW 15.7 H (11.6-14.4) % Plt Count 235 (163-337) x10^3/uL MPV 9.0 L (9.4-12.4) fL Gran % (34.0-67.9) % Immature Gran % (Auto) (0.001-0.429) % Nucleat RBC Rel Count (0.00-0.2) % Eos # (Auto) (0.04-0.54) x10^3/uL Immature Gran # (Auto) (0.001-0.031) x10^3u/L Absolute Lymphs (auto) (1.32-3.57) x10^3/uL Absolute Monos (auto) (0.30-0.82) x10^3/uL Absolute Nucleated RBC (0.00-0.012) x10^3u/L Lymphocytes % (21.8-53.1) % Monocytes % (5.3-12.2) % Eosinophils % (0.8-7.0) % Basophils % (0.2-1.2) % Absolute Granulocytes (1.78-5.38) x10^3/uL Basophils # (0.01-0.08) x10^3/uL D-Dimer (0.0-0.50) mg/L Sodium 137 (135-145) mmol/L Potassium 4.1 (3.5-5.1) mmol/L Chloride 99 (98-107) mmol/L Carbon Dioxide 27 (22-30) mmol/L Anion Gap 15.3 H (5-15) MEQ/L BUN 13 (9-20) mg/dL Creatinine 0.67 (0.66-1.25) mg/dL Estimated GFR 99.8 ML/MIN Glucose 158 H (74-106) mg/dL Lactic Acid (0.4-2.0) Calcium 9.0 (8.4-10.2) mg/dL Magnesium (1.6-2.3) mg/dL Total Bilirubin (0.2-1.3) mg/dL AST (17-59) U/L ALT (0-50) U/L Alkaline Phosphatase (38-126) U/L Troponin I (0.000-0.033) ng/mL NT-Pro-B Natriuret Pep (<300) pg/mL Serum Total Protein (6.3-8.2) g/dL Albumin (3.5-5.0) g/dL Procalcitonin (0.030-0.080) ng/mL Influenza Type A Ag (NEGATIVE) Influenza Type B Ag (NEGATIVE) RSV (PCR) (NEGATIVE) SARS-CoV-2 (PCR) (NEGATIVE) - Radiology Exams Ordered Rad Exams-Entire Visit: Radiology Procedures Category Date Time Status CHEST 1 VIEW (PORTABLE) Stat Exams 08/01/24 20:35 Completed CHEST WITH CONTRAST [CT] Stat Exams 08/01/24 22:47 Completed - Procedures and Test Procedures and Tests throughout Hospitalization: Therapy Orders & Screens 08/02/24 02:16 Oxygen Nasal Cannula 3 lpm Comment: Respiratory Therapy Consult ONCE Comment: Reason For Exam: 08/02/24 04:09 Respiratory Therapy Assessment DAILY Comment: Diagnosis: shortness of breath Discharge Exam General Appearance: no apparent distress Neurologic Exam: alert, 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, cooperative Eye Exam: PERRL Ears, Nose, Throat Exam: normal ENT inspection Neck Exam: normal inspection Respiratory Exam: diminished breath sounds Cardiovascular Exam: regular rate/rhythm, normal heart sounds Gastrointestinal/Abdomen Exam: soft, normal bowel sounds Male Genitalia Exam: deferred Rectal Exam: deferred Back Exam: normal inspection Extremity Exam: normal inspection Skin Exam: normal color Final Diagnosis/Problem List - Final Discharge Diagnosis/Problem (1) Acute respiratory failure with hypoxia Current Visit: Yes Status: Resolved Code(s): J96.01 - ACUTE RESPIRATORY FAILURE WITH HYPOXIA (2) COPD exacerbation Current Visit: Yes Status: Acute Code(s): J44.1 - CHRONIC OBSTRUCTIVE PULMONARY DISEASE W (ACUTE) EXACERBATION (3) History of peptic ulcer disease Current Visit: Yes Status: Chronic Code(s): Z87.11 - PERSONAL HISTORY OF PEPTIC ULCER DISEASE (4) GERD (gastroesophageal reflux disease) Current Visit: No Status: Acute Code(s): K21.9 - GASTRO-ESOPHAGEAL REFLUX DISEASE WITHOUT ESOPHAGITIS - Discharge Discharge Date: 08/02/24 Disposition: Home, Self-Care Condition: Fair Prescriptions: New Azithromycin 250 mg PO DAILY 4 Days #4 tablet Methylprednisolone Packet [Medrol Dosepack] 4 mg PO UD #1 packet Continue Albuterol Sulfate [Proair Hfa] 2 puff IH UD Albuterol 2.5 mg/3 ml Neb [Proventil 2.5 mg/3 ml Neb] 2.5 mg IH Q4- 6HPRN PRN PRN Reason: Shortness Of Breath/Wheezing PANTOPRAZOLE 40 mg Tablet [Protonix 40MG Tablet] 40 mg PO QAM #30 tab Mometasone Furoate [Asmanex Hfa] 1 puff IH BID Follow up with: MITZY LOOMIS [Primary Care Provider] -
[2024-08-02] MEDS: Protonix 40MG Tablet PO SCH (09:28)
[2024-08-02] MEDS: DELTASONE 20 MG PO SCH (09:28)
[2024-08-02] MEDS: ZITHROMAX IV*** 500 MG in Sodium Chloride 0.9% 250 ML 250 ML IV SCH (09:29)
[2024-08-02] MEDS ORDERED: ENOXAPARIN SODIUM SQ SCH (10:00)
== END 2024-08-02 11:00 | disposition home or self-care (01) ==
LOC: ED 20:24 → MED SURG 08-02 02:01
PROVIDERS: ADMIT Internal Medicine; ATTEND Internal Medicine
DX: J96.01 Acute respiratory failure with hypoxia (principal); K21.9 Gastro-esophageal reflux disease without esophagitis; J44.1 Chronic obstructive pulmonary disease with (acute) exacerbation; R06.82 Tachypnea, not elsewhere classified; Z79.899 Other long term (current) drug therapy; Z99.81 Dependence on supplemental oxygen; Z87.11 Personal history of peptic ulcer disease; R50.9 Fever, unspecified; F17.200 Nicotine dependence, unspecified, uncomplicated; Z87.19 Personal history of other diseases of the digestive system
CPT/HCPCS: 0241U; 36415; 71045; 71260; 80048; 80053; 83605; 83735; 83880; 84145; 84484; 85025; 85027; 85379; 87040; 93005; 93041; 94640; 94760; 99291; G0378; Q3014; 99284; J0456; A9270-GY

== ENCOUNTER 2025-04-06 00:29 | Inpatient (IN) | payer MEDICARE, OTHER ==
--- NOTE | 2025-04-06 00:33 | ERPHSYRPT ---
- History of Present Illness Time Seen by Provider: 04/06/25 00:33 Historian: patient Exam Limitations: no limitations Physician History: Patient presents patient presents emergency room with sudden onset epigastric abdominal pain that woke him up from sleep. He rates 10 out of 10. He reports no emesis or diarrhea. Denies chest pain. Shortness of breath at baseline. He wears oxygen at home and is on his baseline oxygen requirement. Timing/Duration: today, sudden Activities at Onset: sleep Quality: sharpness, stabbing Abdominal Pain Onset Location: epigastric Pain Radiation: no radiation Severity of Pain-Max: severe Severity of Pain-Current: severe Modifying Factors: Improves With: nothing Allergies/Adverse Reactions: No Known Drug Allergies Allergy (Verified 04/06/25 08:00) Home Medications: Albuterol Sulfate [Proair Hfa] 2 puff IH Q4H PRN 03/03/19 [History] Ipratropium/Albuterol Sulfate [Iprat-Albut 0.5-3(2.5) mg/3 ml] 3 ml NEB QID 04/06/25 [History] Loratadine 10 mg [Claritin 10 mg] 10 mg PO DAILY 04/06/25 [History] PANTOPRAZOLE 40 mg Tablet [Protonix 40MG Tablet] 40 mg PO DAILY 04/06/25 [History] Tiotropium Br/Olodaterol HCl [Stiolto Respimat Inhaler (60)] 2.5 mcg IN DAILY 04/06/25 [History] Hx Tetanus, Diphtheria Vaccination/Date Given: No (unknown) Hx Influenza Vaccination/Date Given: Yes Hx Pneumococcal Vaccination/Date Given: No Travel Risk - Emerging Infectious Disease Are you exhibiting symptoms associated with any current EIDs: No Symptoms: Cough: New Onset, Shortness of Breath - Review of Systems All Other Systems: Reviewed and Negative - Past Medical History Pertinent Past Medical History: Yes Neurological History: No Pertinent History ENT History: No Pertinent History Cardiac History: No Pertinent History Respiratory History: COPD Endocrine Medical History: No Pertinent History Musculoskeletal History: Arthritis, Other GI Medical History: Ulcer History: No Pertinent History Psycho-Social History: No Pertinent History Male Reproductive Disorders: No Pertinent History Other Medical History: few fractures - Past Surgical History Past Surgical History: Yes Neuro Surgical History: No Pertinent History Cardiac: No Pertinent History Respiratory: No Pertinent History Gastrointestinal: Other Genitourinary: No Pertinent History Musculoskeletal: No Pertinent History Male Surgical History: No Pertinent History Other Surgical History: Had Surgery on bleeding Ulcer Significant Family History: no pertinent family hx - Social History Smoking Status: Heavy tobacco smoker (2 pack per day) How long have you smoked: 50 + Exposure to second hand smoke: Yes Drug Use: none - Social Determinants of Health Will the patient participate in the screening: Yes Do you worry about a steady place to live?: No In the past 12 months,have you had to go without utilities?: No Transportation Issues: No Has anyone in your support network made you feel unsafe?: No Have you or anyone in your house had to go w/o enough food: No - Nursing Vital Signs Nursing Vital Signs: Initial Vital Signs Temperature 97.6 F 04/06/25 00:31 Pulse Rate 112 H 04/06/25 00:31 Respiratory Rate 34 H 04/06/25 00:31 Blood Pressure 149/78 04/06/25 00:31 O2 Sat by Pulse Oximetry 94 L 04/06/25 00:31 Pain Scale Pain Intensity 8 - Physical Exam General Appearance: moderate distress, thin Respiratory Exam: diminished breath sounds, wheezing Cardiovascular Exam: tachycardia Gastrointestinal/Abdomen Exam: tenderness (epigastric), guarding, rebound SpO2 Interpretation: borderline oxygenation O2 Delivery: Nasal Cannula Ordered Tests: Medication Summary Generic Name Dose Route Start Last Admin Trade Name Freq PRN Reason Stop Dose Admin Acetaminophen 650 mg 04/10/25 11:51 04/10/25 12:21 Acetaminophen 650 Mg Supp.Rect W[place] 05/10/25 11:50 650 mg Q4H PRN PRN Administration PAIN AND/OR FEVER Albuterol Sulfate 2.5 mg 04/06/25 08:18 04/10/25 16:36 Albuterol Sulfate 2.5 Mg/3 Ml Neb 05/06/25 08:17 2.5 mg Q4HPRN PRN Administration SHORTNESS OF BREATH/WHEEZING Albuterol Sulfate 2 puff 04/06/25 08:30 Albuterol Common Canister Inhaler 05/06/25 08:29 Q4H PRN PRN Albuterol/Ipratropium 3 ml 04/06/25 11:00 04/10/25 19:19 Ipratropium/Albuterol Sulfate 3 Ml Ampul.Neb 05/06/25 10:59 3 ml QIDRT ALYSSA Administration Device 1 04/11/25 05:30 Therapuetic Drug Level Monitor Each IJ 04/11/25 05:31 1XONLY ONE Diazepam 0 mg 04/06/25 08:17 Diazepam 10 Mg/2 Ml Disp.Syringe IV 05/06/25 08:16 Q2H PRN PRN CIWA SCORE Protocol Enoxaparin Sodium 40 mg 04/07/25 12:00 04/10/25 10:26 Enoxaparin Sodium 40 Mg/0.4 Ml Syringe SQ 05/07/25 11:59 40 mg DAILY ALYSSA Administration Potassium Chloride/Dextrose/Sod Cl 1,000 mls @ 50 mls/hr 04/06/25 08:30 04/10/25 09:16 D5w/0.45ns W/ 20meq Kcl 1000 Ml IV 05/06/25 08:29 90 mls/hr .Q20H ALYSSA Administration Metronidazole 500 mg in 100 mls @ 200 mls/hr 04/07/25 12:00 04/10/25 23:29 Flagyl 500 Mg Ivpb IV 05/07/25 11:59 200 mls/hr Q6HT ALYSSA Administration Piperacillin Sod/Tazobactam 100 mls @ 200 mls/hr 04/10/25 12:00 04/11/25 00:08 Sod 3.375 gm/ Sodium Chloride IV 04/13/25 11:59 200 mls/hr Q6HT ALYSSA Administration Vancomycin HCl 500 mg/ Sodium 100 mls @ 100 mls/hr 04/10/25 12:00 04/10/25 18:47 Chloride IV 05/10/25 11:59 100 mls/hr Q6HT ALYSSA Administration Morphine Sulfate 2 mg 04/06/25 08:12 04/10/25 21:33 Morphine Sulfate 2 Mg/Ml Inj IV 04/11/25 08:11 2 mg Q2H PRN PRN Administration PAIN Nicotine 21 mg 04/06/25 12:30 04/10/25 10:26 Nicotine 21 Mg/Patch Patch TOP 05/06/25 12:29 21 mg Q24H10 ALYSSA Administration Ondansetron HCl 4 mg 04/06/25 08:13 Ondansetron Hcl 4 Mg/2 Ml Vial IV 05/06/25 08:12 Q6H PRN PRN NAUSEA/VOMITING Pantoprazole Sodium 40 mg 04/06/25 10:00 04/10/25 21:30 Pantoprazole 40 Mg Vial IV 05/06/25 09:59 40 mg BID ALYSSA Administration Asmanex Hfa Inhaler 1 each 04/08/25 07:00 04/10/25 19:19 05/08/25 06:59 1 each BIDRT ALYSSA Administration Stiolto Respimat 2 each 04/08/25 19:00 04/10/25 19:19 Inhaler IH 05/08/25 18:59 2 each 1900 ALYSSA Administration Discontinued Medications Generic Name Dose Route Start Last Admin Trade Name Freq PRN Reason Stop Dose Admin Albuterol/Ipratropium 3 ml 04/06/25 03:34 04/06/25 03:43 Ipratropium/Albuterol Sulfate 3 Ml Ampul.Neb IH 04/06/25 03:35 3 ml STAT ONE Administration Albuterol/Ipratropium Confirm 04/06/25 03:42 Ipratropium/Albuterol Sulfate 3 Ml Ampul.Neb Administered 04/06/25 03:43 Dose 3 ml IH .STK-MED ONE Azithromycin 250 mg 04/06/25 10:00 04/06/25 10:42 Azithromycin 250 Mg Tablet PO 04/09/25 10:01 Not Given DAILY ALYSSA Bisacodyl 10 mg 04/09/25 14:13 04/09/25 14:58 Bisacodyl 10 Mg Supp.Rect WV 04/09/25 14:14 10 mg STAT ONE Administration Bisacodyl 10 mg 04/09/25 18:00 04/09/25 18:01 Bisacodyl 10 Mg Supp.Rect WV 04/09/25 18:01 10 mg ONCE ONE Administration Bupivacaine HCl Confirm 04/06/25 05:06 Bupivacaine Hcl 2.5 Mg/Ml 10 Ml Administered 04/06/25 05:07 Dose 10 ml .ROUTE .STK-MED ONE Methylprednisolone Sodium 0 mg 04/06/25 10:00 04/06/25 10:12 Succinate 20 mg/ Sterile Water IV 05/06/25 09:59 20 mg 1 ml Q12HT ALYSSA Administration Dexamethasone Sodium Phosphate Confirm 04/06/25 04:36 Dexamethasone Sodium Phosphate 4 Mg/Ml Vial Administered 04/06/25 04:37 Dose 8 mg .ROUTE .STK-MED ONE Fentanyl Citrate Confirm 04/06/25 04:35 Fentanyl Citrate 100 Mcg/2 Ml* Vial Administered 04/06/25 04:36 Dose 200 mcg .ROUTE .STK-MED ONE Hydromorphone HCl 1 mg 04/06/25 00:33 04/06/25 00:48 Hydromorphone 1 Mg/1ml Inj IV 04/06/25 00:34 1 mg STAT ONE Administration Hydromorphone HCl Confirm 04/06/25 00:46 Hydromorphone 1 Mg/1ml Inj Administered 04/06/25 00:47 Dose 1 mg .ROUTE .STK-MED ONE Hydromorphone HCl 1 mg 04/06/25 03:21 04/06/25 03:28 Hydromorphone 1 Mg/1ml Inj IV 04/06/25 03:22 1 mg STAT ONE Administration Hydromorphone HCl Confirm 04/06/25 03:26 Hydromorphone 1 Mg/1ml Inj Administered 04/06/25 03:27 Dose 1 mg .ROUTE .STK-MED ONE Sodium Chloride 1,000 mls @ 999 mls/hr 04/06/25 00:33 04/06/25 01:47 Sodium Chloride 0.9% 1000 Ml IV 04/06/25 01:33 Infused .Q1H1M STA Infusion Sodium Chloride Confirm 04/06/25 00:46 Sodium Chloride 0.9% 1000 Ml Administered 04/06/25 00:47 Dose 1,000 mls @ ud .ROUTE .STK-MED ONE Piperacillin Sod/Tazobactam 100 mls @ 200 mls/hr 04/06/25 03:17 04/06/25 03:39 Sod 3.375 gm/ Sodium Chloride IV 04/06/25 03:46 200 mls/hr STAT STA 200 mls/hr Administration Sodium Chloride Confirm 04/06/25 03:32 Sodium Chloride 0.9% Administered 04/06/25 03:33 Dose 100 mls @ ud .ROUTE .STK-MED ONE Sodium Chloride Confirm 04/06/25 03:39 Sodium Chloride 0.9% 1000 Ml Administered 04/06/25 03:40 Dose 1,000 mls @ ud .ROUTE .STK-MED ONE Sodium Chloride 1,000 mls @ 100 mls/hr 04/06/25 03:45 04/06/25 03:40 Sodium Chloride 0.9% 1000 Ml IV 05/06/25 03:44 100 mls/hr .Q10H ALYSSA Administration Acetaminophen Confirm 04/06/25 04:54 Ofirmev Administered 04/06/25 04:55 Dose 100 mls @ ud IV .STK-MED ONE Lactated Ringer's Confirm 04/06/25 05:49 Lactated Ringers Administered 04/06/25 05:50 Dose 1,000 mls @ ud IV .STK-MED ONE Cefoxitin Sodium 2 gm in 100 mls @ 200 mls/hr 04/06/25 09:00 04/10/25 00:36 Cefoxitin 2 Gm/100 Ml Nacl Ivpb IV 05/06/25 08:59 200 mls/hr Q8H ALYSSA Administration Ketamine HCl Confirm 04/06/25 05:11 Ketamine Hcl 50 Mg/Ml Administered 04/06/25 05:12 Dose 50 mg .ROUTE .STK-MED ONE Lidocaine HCl Confirm 04/06/25 04:35 Lidocaine - Mpf 2% 5 Ml Vial Administered 04/06/25 04:36 Dose 10 ml .ROUTE .STK-MED ONE Magnesium Sulfate Confirm 04/06/25 04:54 Magnesium Sulfate Injection Administered 04/06/25 04:55 Dose 1 gm .ROUTE .STK-MED ONE Methylprednisolone 4 mg 04/06/25 08:30 Methylprednisolone 4 Mg Packet PO 05/06/25 08:29 UD ALYSSA Midazolam HCl Confirm 04/06/25 05:12 Midazolam Hcl 2 Mg/2 Ml Vial Administered 04/06/25 05:13 Dose 2 mg .ROUTE .STK-MED ONE Miscellaneous Information 1 each 04/06/25 08:30 Medication Intervention 1 Each Each 05/06/25 08:29 .RT TO CHECK [facility] Miscellaneous Information 1 each 04/06/25 13:00 Medication Intervention 1 Each Each 05/06/25 12:59 .RT TO CHECK [facility] Non-Formulary Medication 1 each 04/10/25 09:15 Pharmacy Dose Request: Vancomycin 1 Each IV 05/10/25 09:14 ONCALLTOOR [facility] Ondansetron HCl 4 mg 04/06/25 00:35 04/06/25 00:48 Ondansetron Hcl 4 Mg/2 Ml Vial IV 04/06/25 00:36 4 mg STAT ONE Administration Ondansetron HCl Confirm 04/06/25 00:46 Ondansetron Hcl 4 Mg/2 Ml Vial Administered 04/06/25 00:47 Dose 4 mg .ROUTE .STK-MED ONE Ondansetron HCl Confirm 04/06/25 04:35 Ondansetron Hcl 4 Mg/2 Ml Vial Administered 04/06/25 04:36 Dose 8 mg .ROUTE .STK-MED ONE Pantoprazole Sodium 40 mg 04/06/25 10:00 Protonix (Pantoprazole) 40 Mg Tablet PO 05/06/25 09:59 QAM ALYSSA Piperacillin Sod/Tazobactam Sod Confirm 04/06/25 03:26 Piperacillin/Tazobactam Sodium 3.375 Gm Vial Administered 04/06/25 03:27 Dose 3.375 gm IV .STK-MED ONE Propofol Confirm 04/06/25 04:35 Propofol 200 Mg/20 Ml Vial Administered 04/06/25 04:36 Dose 400 mg IV .STK-MED ONE Rocuronium Max Confirm 04/06/25 04:35 Rocuronium Max 50 Mg/5 Ml Vial Administered 04/06/25 04:36 Dose 100 mg IV .STK-MED ONE Sugammadex Sodium Confirm 04/06/25 04:35 Sugammadex Sodium 200 Mg/2 Ml Vial Administered 04/06/25 04:36 Dose 400 mg IV .STK-MED ONE Vasopressin Confirm 04/06/25 04:54 Vasopressin 20 Unit/Ml Ml Administered 04/06/25 04:55 Dose 20 unit .ROUTE .STK-MED ONE Lab/Rad Data: Laboratory Result Diagrams 04/06/25 00:47 04/06/25 00:47 Laboratory Results 04/06/25 04/06/25 04/06/25 Range/Units 04:30 04:05 04:05 WBC (4.23-9.07) x10^3/uL RBC (4.63-6.08) x10^6/uL Hgb (13.7-17.5) g/dL Hct (40.1-51.0) % MCV (79.0-92.2) fL MCH (25.7-32.2) pg MCHC (32.3-36.5) g/dL RDW (11.6-14.4) % Plt Count (163-337) x10^3/uL MPV (9.4-12.4) fL Gran % (34.0-67.9) % Immature Gran % (Auto) (0.001-0.429) % Nucleat RBC Rel Count (0.00-0.2) % Eos # (Auto) (0.04-0.54) x10^3/uL Immature Gran # (Auto) (0.001-0.031) x10^3u/L Absolute Lymphs (auto) (1.32-3.57) x10^3/uL Absolute Monos (auto) (0.30-0.82) x10^3/uL Absolute Nucleated RBC (0.00-0.012) x10^3u/L Lymphocytes % (21.8-53.1) % Monocytes % (5.3-12.2) % Eosinophils % (0.8-7.0) % Basophils % (0.2-1.2) % Absolute Granulocytes (1.78-5.38) x10^3/uL Basophils # (0.01-0.08) x10^3/uL Sodium (135-145) mmol/L Potassium (3.5-5.1) mmol/L Chloride (98-107) mmol/L Carbon Dioxide (22-30) mmol/L Anion Gap (5-15) MEQ/L BUN (9-20) mg/dL Creatinine (0.66-1.25) mg/dL Estimated GFR ML/MIN Glucose (74-106) mg/dL Lactic Acid (0.4-2.0) Calcium (8.4-10.2) mg/dL Total Bilirubin (0.2-1.3) mg/dL AST (17-59) U/L ALT (0-50) U/L Alkaline Phosphatase (38-126) U/L Lactate Dehydrogenase (120-246) U/L Troponin I (0.000-0.033) ng/mL Serum Total Protein (6.3-8.2) g/dL Albumin (3.5-5.0) g/dL Amylase 76 (30-110) U/L Lipase 128 (23-300) U/L Urine Color Yellow (Yellow) Urine Appearance Clear (Clear) Urine pH 5.0 (4.6-8.0) Ur Specific Kodak >=1.030 A (1.005-1.030) Urine Protein 30 (Negative) Urine Glucose (UA) Negative (Negative) mg/dL Urine Ketones Negative (Negative) Urine Blood Small A (Negative) Urine Nitrite Negative (Negative) Urine Bilirubin Negative (Negative) Urine Urobilinogen 0.2 (0.2) mg/dL Ur Leukocyte Esterase Negative (Negative) U Hyaline Cast (Auto) 3-5 A (0-2) /LPF Urine Microscopic RBC 3-5 (0-5) /HPF Urine Microscopic WBC 0-2 (0-5) /HPF Ur Epithelial Cells None Seen (None Seen) /HPF Urine Bacteria None Seen (None Seen) /HPF Urine Culture Reflexed YES (NO) Urine Opiates Level POSITIVE A (NEGATIVE) Ur Methadone NEGATIVE (NEGATIVE) Urine Barbiturates NEGATIVE (NEGATIVE) Ur Phencyclidine (PCP) NEGATIVE (NEGATIVE) Urine Amphetamine NEGATIVE (NEGATIVE) U Benzodiazepine Level NEGATIVE (NEGATIVE) Urine Cocaine NEGATIVE (NEGATIVE) Urine Marijuana (THC) NEGATIVE (NEGATIVE) Ethyl Alcohol (0-10) mg/dL ABO Group Rh Factor Antibody Screen (NEGATIVE) 04/06/25 04/06/25 04/06/25 Range/Units 03:31 03:30 00:47 WBC (4.23-9.07) x10^3/uL RBC (4.63-6.08) x10^6/uL Hgb (13.7-17.5) g/dL Hct (40.1-51.0) % MCV (79.0-92.2) fL MCH (25.7-32.2) pg MCHC (32.3-36.5) g/dL RDW (11.6-14.4) % Plt Count (163-337) x10^3/uL MPV (9.4-12.4) fL Gran % (34.0-67.9) % Immature Gran % (Auto) (0.001-0.429) % Nucleat RBC Rel Count (0.00-0.2) % Eos # (Auto) (0.04-0.54) x10^3/uL Immature Gran # (Auto) (0.001-0.031) x10^3u/L Absolute Lymphs (auto) (1.32-3.57) x10^3/uL Absolute Monos (auto) (0.30-0.82) x10^3/uL Absolute Nucleated RBC (0.00-0.012) x10^3u/L Lymphocytes % (21.8-53.1) % Monocytes % (5.3-12.2) % Eosinophils % (0.8-7.0) % Basophils % (0.2-1.2) % Absolute Granulocytes (1.78-5.38) x10^3/uL Basophils # (0.01-0.08) x10^3/uL Sodium (135-145) mmol/L Potassium (3.5-5.1) mmol/L Chloride (98-107) mmol/L Carbon Dioxide (22-30) mmol/L Anion Gap (5-15) MEQ/L BUN (9-20) mg/dL Creatinine (0.66-1.25) mg/dL Estimated GFR ML/MIN Glucose (74-106) mg/dL Lactic Acid (0.4-2.0) Calcium (8.4-10.2) mg/dL Total Bilirubin (0.2-1.3) mg/dL AST (17-59) U/L ALT (0-50) U/L Alkaline Phosphatase (38-126) U/L Lactate Dehydrogenase (120-246) U/L Troponin I < 0.012 < 0.012 (0.000-0.033) ng/mL Serum Total Protein (6.3-8.2) g/dL Albumin (3.5-5.0) g/dL Amylase (30-110) U/L Lipase (23-300) U/L Urine Color (Yellow) Urine Appearance (Clear) Urine pH (4.6-8.0) Ur Specific Kodak (1.005-1.030) Urine Protein (Negative) Urine Glucose (UA) (Negative) mg/dL Urine Ketones (Negative) Urine Blood (Negative) Urine Nitrite (Negative) Urine Bilirubin (Negative) Urine Urobilinogen (0.2) mg/dL Ur Leukocyte Esterase (Negative) U Hyaline Cast (Auto) (0-2) /LPF Urine Microscopic RBC (0-5) /HPF Urine Microscopic WBC (0-5) /HPF Ur Epithelial Cells (None Seen) /HPF Urine Bacteria (None Seen) /HPF Urine Culture Reflexed (NO) Urine Opiates Level (NEGATIVE) Ur Methadone (NEGATIVE) Urine Barbiturates (NEGATIVE) Ur Phencyclidine (PCP) (NEGATIVE) Urine Amphetamine (NEGATIVE) U Benzodiazepine Level (NEGATIVE) Urine Cocaine (NEGATIVE) Urine Marijuana (THC) (NEGATIVE) Ethyl Alcohol (0-10) mg/dL ABO Group B Rh Factor POSITIVE Antibody Screen NEGATIVE (NEGATIVE) 04/06/25 04/06/25 04/06/25 Range/Units 00:47 00:47 00:38 WBC 14.3 H (4.23-9.07) x10^3/uL RBC 4.72 (4.63-6.08) x10^6/uL Hgb 12.4 L (13.7-17.5) g/dL Hct 41.8 (40.1-51.0) % MCV 88.6 (79.0-92.2) fL MCH 26.3 (25.7-32.2) pg MCHC 29.7 L (32.3-36.5) g/dL RDW 17.0 H (11.6-14.4) % Plt Count 251 (163-337) x10^3/uL MPV 8.8 L (9.4-12.4) fL Gran % 66.8 (34.0-67.9) % Immature Gran % (Auto) 0.6 H (0.001-0.429) % Nucleat RBC Rel Count 0.0 (0.00-0.2) % Eos # (Auto) 0.24 (0.04-0.54) x10^3/uL Immature Gran # (Auto) 0.08 H (0.001-0.031) x10^3u/L Absolute Lymphs (auto) 3.12 (1.32-3.57) x10^3/uL Absolute Monos (auto) 1.22 H (0.30-0.82) x10^3/uL Absolute Nucleated RBC 0.00 (0.00-0.012) x10^3u/L Lymphocytes % 21.8 (21.8-53.1) % Monocytes % 8.5 (5.3-12.2) % Eosinophils % 1.7 (0.8-7.0) % Basophils % 0.6 (0.2-1.2) % Absolute Granulocytes 9.58 H (1.78-5.38) x10^3/uL Basophils # 0.09 H (0.01-0.08) x10^3/uL Sodium 135 (135-145) mmol/L Potassium 4.2 (3.5-5.1) mmol/L Chloride 101 (98-107) mmol/L Carbon Dioxide 21 L (22-30) mmol/L Anion Gap 17.5 H (5-15) MEQ/L BUN 10 (9-20) mg/dL Creatinine 0.76 (0.66-1.25) mg/dL Estimated GFR 96.1 ML/MIN Glucose 108 H (74-106) mg/dL Lactic Acid 2.2 H (0.4-2.0) Calcium 9.0 (8.4-10.2) mg/dL Total Bilirubin 0.50 (0.2-1.3) mg/dL AST 44 (17-59) U/L ALT 15 (0-50) U/L Alkaline Phosphatase 50 (38-126) U/L Lactate Dehydrogenase (120-246) U/L Troponin I (0.000-0.033) ng/mL Serum Total Protein 8.1 (6.3-8.2) g/dL Albumin 4.8 (3.5-5.0) g/dL Amylase (30-110) U/L Lipase 125 (23-300) U/L Urine Color (Yellow) Urine Appearance (Clear) Urine pH (4.6-8.0) Ur Specific Kodak (1.005-1.030) Urine Protein (Negative) Urine Glucose (UA) (Negative) mg/dL Urine Ketones (Negative) Urine Blood (Negative) Urine Nitrite (Negative) Urine Bilirubin (Negative) Urine Urobilinogen (0.2) mg/dL Ur Leukocyte Esterase (Negative) U Hyaline Cast (Auto) (0-2) /LPF Urine Microscopic RBC (0-5) /HPF Urine Microscopic WBC (0-5) /HPF Ur Epithelial Cells (None Seen) /HPF Urine Bacteria (None Seen) /HPF Urine Culture Reflexed (NO) Urine Opiates Level (NEGATIVE) Ur Methadone (NEGATIVE) Urine Barbiturates (NEGATIVE) Ur Phencyclidine (PCP) (NEGATIVE) Urine Amphetamine (NEGATIVE) U Benzodiazepine Level (NEGATIVE) Urine Cocaine (NEGATIVE) Urine Marijuana (THC) (NEGATIVE) Ethyl Alcohol 105 H (0-10) mg/dL ABO Group Rh Factor Antibody Screen (NEGATIVE) 04/06/25 Range/Units 00:30 WBC (4.23-9.07) x10^3/uL RBC (4.63-6.08) x10^6/uL Hgb (13.7-17.5) g/dL Hct (40.1-51.0) % MCV (79.0-92.2) fL MCH (25.7-32.2) pg MCHC (32.3-36.5) g/dL RDW (11.6-14.4) % Plt Count (163-337) x10^3/uL MPV (9.4-12.4) fL Gran % (34.0-67.9) % Immature Gran % (Auto) (0.001-0.429) % Nucleat RBC Rel Count (0.00-0.2) % Eos # (Auto) (0.04-0.54) x10^3/uL Immature Gran # (Auto) (0.001-0.031) x10^3u/L Absolute Lymphs (auto) (1.32-3.57) x10^3/uL Absolute Monos (auto) (0.30-0.82) x10^3/uL Absolute Nucleated RBC (0.00-0.012) x10^3u/L Lymphocytes % (21.8-53.1) % Monocytes % (5.3-12.2) % Eosinophils % (0.8-7.0) % Basophils % (0.2-1.2) % Absolute Granulocytes (1.78-5.38) x10^3/uL Basophils # (0.01-0.08) x10^3/uL Sodium (135-145) mmol/L Potassium (3.5-5.1) mmol/L Chloride (98-107) mmol/L Carbon Dioxide (22-30) mmol/L Anion Gap (5-15) MEQ/L BUN (9-20) mg/dL Creatinine (0.66-1.25) mg/dL Estimated GFR ML/MIN Glucose (74-106) mg/dL Lactic Acid (0.4-2.0) Calcium (8.4-10.2) mg/dL Total Bilirubin (0.2-1.3) mg/dL AST (17-59) U/L ALT (0-50) U/L Alkaline Phosphatase (38-126) U/L Lactate Dehydrogenase 236 (120-246) U/L Troponin I (0.000-0.033) ng/mL Serum Total Protein (6.3-8.2) g/dL Albumin (3.5-5.0) g/dL Amylase (30-110) U/L Lipase (23-300) U/L Urine Color (Yellow) Urine Appearance (Clear) Urine pH (4.6-8.0) Ur Specific Kodak (1.005-1.030) Urine Protein (Negative) Urine Glucose (UA) (Negative) mg/dL Urine Ketones (Negative) Urine Blood (Negative) Urine Nitrite (Negative) Urine Bilirubin (Negative) Urine Urobilinogen (0.2) mg/dL Ur Leukocyte Esterase (Negative) U Hyaline Cast (Auto) (0-2) /LPF Urine Microscopic RBC (0-5) /HPF Urine Microscopic WBC (0-5) /HPF Ur Epithelial Cells (None Seen) /HPF Urine Bacteria (None Seen) /HPF Urine Culture Reflexed (NO) Urine Opiates Level (NEGATIVE) Ur Methadone (NEGATIVE) Urine Barbiturates (NEGATIVE) Ur Phencyclidine (PCP) (NEGATIVE) Urine Amphetamine (NEGATIVE) U Benzodiazepine Level (NEGATIVE) Urine Cocaine (NEGATIVE) Urine Marijuana (THC) (NEGATIVE) Ethyl Alcohol (0-10) mg/dL ABO Group Rh Factor Antibody Screen (NEGATIVE) - Progress Progress: unchanged Progress Note: 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 No evidence of aortic dissection noted. Discussed the case with Dr. Solano at 315 recommending emergency laparotomy. Surgical team was assembled. Patient was started on Zosyn. Type and screen placed in case blood component needed. Hemoglobin greater than 12 at this time. Discussed with Dr.: George (Surgeon) Will see patient in: hospital (full admit) Counseled pt/family regarding: lab results, diagnosis, need for follow-up, rad results Medical Desision Making - Discussion of managment Care discussed with:: specialist Reviewed:: Test results, Need for additional workup Agreed on:: decision to admit Will see patient: in hospital - Diagnostic Testing Diagnostic test were ordered, analyzed, and reviewed by me: Yes Radiological Interpretation: Interpreted by me, Reviewed by me, Teleradiologist Report - Risk of complications The pt has a mod risk of morbidity or mortality based on: Need for prescription drug management The pt has a high risk of morbidity or mortality based on: Need for emergency major surgery - Departure Departure Disposition: In-patient Admission Clinical Impression: Perforated abdominal viscus, Perforated gastric ulcer, Abdominal pain Condition: Serious Critical Care Time: No
[2025-04-06] MEDS ORDERED: Zofran 4 MG/2 ML VIAL ONE ×2 (00:46→04:35)
[2025-04-06] MEDS ORDERED: Hydromorphone 1 mg/ml Injection ONE ×2 (00:46→03:26)
[2025-04-06] MEDS: Hydromorphone 1 mg/ml Injection IV ONE ×2 (00:48→03:28)
[2025-04-06] MEDS: Zofran 4 MG/2 ML VIAL IV ONE (00:48)
[2025-04-06 00:52] LABS: BASOPHIL % 0.6 % (0.2-1.2); Basophil (Absolute #) 0.09 x10^3/uL (0.01-0.08); Eosinophil (Absolute #) 0.24 x10^3/uL (0.04-0.54); Hematocrit 41.8 % (40.1-51.0); Hemoglobin 12.4 g/dL (13.7-17.5); IMMATURE GRAN # 0.08 x10^3u/L (0.001-0.031); IMMATURE GRAN % 0.6 % (0.001-0.429); Lymphocyte (Absolute #) 3.12 x10^3/uL (1.32-3.57); Mean Corpuscular Hemoglobin 26.3 pg (25.7-32.2); Mean Corpuscular Hgb Concent. 29.7 g/dL (32.3-36.5); Monocyte (Absolute #) 1.22 x10^3/uL (0.30-0.82); NUCLEATED RBC # 0.00 x10^3u/L (0.00-0.012); NUCLEATED RBC % 0.0 % (0.00-0.2); Platelet Count 251 x10^3/uL (163-337); Red Blood Count 4.72 x10^6/uL (4.63-6.08); White Blood Count 14.3 x10^3/uL (4.23-9.07)
[2025-04-06 01:06] LABS: Calcium 9.0 mg/dL (8.4-10.2); Carbon Dioxide 21.0 mmol/L (22-30); Creatinine 1 0.76 mg/dL (0.66-1.25); EST GLOMERULAR FILTRATION RATE 96.1 ML/MIN; ETHYL ALCOHOL 105.0 mg/dL (0-10); Glucose 108.0 mg/dL (74-106); Potassium 4.2 mmol/L (3.5-5.1); SGOT/AST 44.0 U/L (17-59); SGPT/ALT 15.0 U/L (0-50); Total Protein 8.1 g/dL (6.3-8.2)
--- NOTE | 2025-04-06 02:52 | XRAY ---
CLINICAL HISTORY: epigastric pain COMPARISON: 22:14:13 ASSESSMENT ANALYST. TECHNIQUE: Contiguous axial images were obtained from the neck base through the upper abdomen following intravenous administration of iodinated contrast material. Angiographic images were processed, 3D MIP images were acquired for interpretation. If IV contrast material had not been administered, the likelihood of detecting abnormalities relevant to the patient's condition would have been substantially decreased. Coronal and sagittal 3-D MIPs were likewise performed and indicated to increase the sensitivity of detectin diffuse clinically relevant pathology. CT scan was performed according to ALARA (as low as reasonably achievable). FINDINGS: Both lungs shows mild diffuse emphysema Adequate contrast bolus without evidence of pulmonary embolism. The central airways are patent. The lungs are clear. No pleural effusion. The heart, aorta, and pulmonary arteries are of normal size and configuration. There are no appreciable coronary artery and aortic atherosclerotic calcifications. No pericardial effusion is identified. The thyroid is unremarkable. No mediastinal, hilar, or axillary lymphadenopathy is noted. No suspicious lytic or sclerotic osseous lesions are identified. Mild ascites noted. IMPRESSION: Both lungs shows mild diffuse emphysema-stable. No obvious pulmonary embolism. Mild ascites noted. No other new interval abnormality since prior study. Electronically Signed by: Aidan Gastelum MD. (04/06/2025 02:50:24 EST)
--- NOTE | 2025-04-06 03:09 | XRAY ---
CLINICAL HISTORY: abd pain COMPARISON: 07:46:16 [employer] . TECHNIQUE: Contrast enhanced thin slice CT angiography scan of the abdominal aorta was performed with intravenous contrast. Angiographic images were processed, 3D MIP images were acquired for interpretation. Contiguous axial images were obtained. Reformatted coronal and sagittal images were also reviewed. If IV contrast material had not been administered, the likelihood of detecting abnormalities relevant to the patient's condition would have been substantially decreased. CT scan was performed according to ALARA (as low as reasonably achievable). FINDINGS: Mild intraperitoneal free air are noted adjacent to the hepatic surface, within lesser sac and mid abdomen, close to abdominal wall - suggestive of pneumoperitoneum. Mild intraperitoneal free air are noted adjacent to the hepatic surface, within lesser sac and mid abdomen, close to abdominal wall Sliding hiatus hernia noted. Mild mucosal edema is noted involving ileal loop in right lower quadrant with mild adjacent mesenteric congestion is seen - suggest possibility of enteritis changes. Small metallic clip is noted in the region of pancreastic head - stable, clinical correlation suggested. Diffuse atherosclerotic calcification is noted involving aorta and iliac arteries. Abdominal aorta is normal in course, calibre and opacification. Origin of coeliac artery, superior mesenteric artery , bilateral main renal and lumbar arteries are normal with no hemodynamically significant ostial stenosis noted. Bilateral common, external and internal iliac arteries are normal in course, caliber and opacification. Solid abdominal organs including liver, spleen, rest of the pancreas and bilateral kidneys reveal no significant abnormality. IMPRESSION: 1. Mild intraperitoneal free air are noted adjacent to the hepatic surface, within lesser sac and mid abdomen, close to abdominal wall- suggestive of pneumoperitoneum.- possibility of hollow viscus perforation likely.- post oral contrast evaluation suggested.-new finding. 2. Possible focal discontinuity is seen in the wall of pylorus with adjacent air focus- Possibility of perforation.- suggest post oral contrast evaluation. new finding. 3. Sliding hiatus hernia noted.-stable. 4. Mild mucosal edema is noted involving ileal loop in right lower quadrant with mild adjacent mesenteric congestion is seen - suggest possibility of enteritis changes.-new finding. 5. Diffuse atherosclerotic calcification is noted involving aorta and iliac arteries. No significant stenosis/aneurysm-stable. 6. Small metallic clip is noted in the region of pancreatic head - clinical correlation suggested.-stable. Electronically Signed by: Aidan Gastelum MD. (04/06/2025 03:08:02 EST)
[2025-04-06] MEDS ORDERED: PIPERACILLIN/TAZOBACTAM IV ONE (03:26)
[2025-04-06] MEDS ORDERED: DUONEB 0.5-3 MG/3 ml Neb IH ONE (03:42)
[2025-04-06] MEDS: DUONEB 0.5-3 MG/3 ml Neb IH ONE (03:43)
[2025-04-06 04:23] LABS: Glucose, Urine Negative (Negative); Protein,Urine Dip 30 (Negative); WBC 0-2 /HPF (0-5)
[2025-04-06 04:33] LABS: Amphetamine,Urine NEGATIVE (NEGATIVE); Barbiturate,Urine NEGATIVE (NEGATIVE); Benzodiazepine,Urine NEGATIVE (NEGATIVE); Cocaine,Urine NEGATIVE (NEGATIVE); Methadone,Urine NEGATIVE (NEGATIVE); Opiate,Urine POSITIVE (NEGATIVE); PCP,Urine NEGATIVE (NEGATIVE); THC,Urine NEGATIVE (NEGATIVE)
[2025-04-06] MEDS ORDERED: SUBLIMAZE 100 MCG/2 ML ONE (04:35)
[2025-04-06] MEDS ORDERED: Xylocaine-Mpf 2% 5 Ml Vial ONE (04:35)
[2025-04-06] MEDS ORDERED: BRIDION 200MG/2ML IV ONE (04:35)
[2025-04-06] MEDS ORDERED: propofoL IV ONE (04:35)
[2025-04-06] MEDS ORDERED: ROCURONIUM BROMIDE IV ONE (04:35)
[2025-04-06 04:47] LABS: ABO TYPING B; RH TYPING POSITIVE
[2025-04-06] MEDS ORDERED: PITRESSIN 20 UNITS ONE (04:54)
[2025-04-06] MEDS ORDERED: Magnesium Sulfate 1 GM/2 ML VIAL ONE (04:54)
[2025-04-06] MEDS ORDERED: OFIRMEV 100 ML IV ONE (04:54)
[2025-04-06] MEDS ORDERED: Sensorcaine 0.25% 10 ML ONE (05:06)
[2025-04-06] MEDS ORDERED: Ketamine HCl 50 MG/ML ONE (05:11)
[2025-04-06] MEDS ORDERED: Versed 2 MG/2 ML Injection ONE (05:12)
[2025-04-06] MEDS ORDERED: Lactated Ringers 1,000 ML IV ONE (05:49)
[2025-04-06] MEDS ORDERED: Zofran 4 MG/2 ML VIAL IV PRN (08:13)
[2025-04-06] MEDS ORDERED: VALIUM 10 MG/2 ML SYRINGE IV PRN (08:17)
[2025-04-06] MEDS ORDERED: MEDICATION INTERVENTION MC SCH ×2 (08:30→13:00)
[2025-04-06] MEDS ORDERED: VENTOLIN COMMON CANISTER IH PRN (08:30)
[2025-04-06] MEDS ORDERED: Medrol Dosepack PO SCH (08:30)
[2025-04-06] MEDS: D5W/0.45NS W/ 20mEq KCl 1000 ML 1,000 ML IV SCH (08:52)
--- NOTE | 2025-04-06 09:44 | PCM.HP ---
History of Present Illness - Chief Complaint Chief Complaint: Duodenal Perforation and obstruction Date: 04/06/25 History of Present Illness: is a 69-year-old male with a past medical history significant for COPD, emphysema, restless leg syndrome, chronic back pain, heavy alcohol use (approximately six beers daily), and heavy tobacco use (three to four packs per day). He was taken to the operating room last night by general surgery for a perforated gastric ulcer with pyloric obstruction. Postoperatively, he has a midline abdominal incision and remains on 100% BiPAP. Current labs show a white blood cell count of 14.3, hemoglobin stable at 12.4, lactic acid within normal limits at 1.1, and an anion gap of 17.5. CTA of the chest revealed mild ascites and emphysema. He is receiving IV fluids per surgical orders and IV morphine for pain control. His alcohol level this morning was normal. The surgical procedure and postoperative concerns were discussed in detail with the family. The patient is to remain NPO at this time, and Cefoxitin per general surgery recommendation. PO Steroids on JUL this AM was a mistake per nursing and they have been removed. - Review of Systems Constitutional: No Fever, No Chills Eyes: No Symptoms Ears, Nose, & Throat: No Symptoms Respiratory: Short Of Breath (on Bipap), No Cough Cardiac: No Chest Pain, No Edema, No Syncope Abdominal/Gastrointestinal: Abdominal Pain (with midline abd incision), No Nausea, No Vomiting, No Diarrhea Genitourinary Symptoms: No Dysuria Musculoskeletal: No Back Pain, No Neck Pain Skin: Other (valle skin color), No Rash Neurological: No Dizziness, No Focal Weakness, No Sensory Changes Psychological: No Symptoms Endocrine: No Symptoms Hematologic/Lymphatic: No Symptoms Immunological/Allergic: No Symptoms Medications & Allergies Home Medications: Home Medication List Albuterol Sulfate [Proair Hfa] 2 puff IH Q4H PRN 03/03/19 [History Confirmed 04/06/25] Ipratropium/Albuterol Sulfate [Iprat-Albut 0.5-3(2.5) mg/3 ml] 3 ml NEB QID 04/06/25 [History Confirmed 04/06/25] Loratadine 10 mg [Claritin 10 mg] 10 mg PO DAILY 04/06/25 [History Confirmed 04/06/25] PANTOPRAZOLE 40 mg Tablet [Protonix 40MG Tablet] 40 mg PO DAILY 04/06/25 [History Confirmed 04/06/25] Tiotropium Br/Olodaterol HCl [Stiolto Respimat Inhaler (60)] 2.5 mcg IN DAILY 04/06/25 [History Confirmed 04/06/25] Allergies/Adverse Reactions: Allergies Allergy/AdvReac Type Severity Reaction Status Date / Time No Known Drug Allergies Allergy Verified 04/06/25 08:00 - Past Medical History Past Medical History: Yes Neurological History: Other ENT History: No Pertinent History Cardiac History: No Pertinent History Respiratory History: COPD Endocrine Medical History: No Pertinent History Musculoskelatal History: Arthritis, Other GI Medical History: Ulcer, Other History: No Pertinent History Pyscho-Social History: No Pertinent History Male Reproductive Disorders: No Pertinent History Comment: Patient unable to answer questions at this time. Medical history pulled from previous hospital records and family at patient's bedside. 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, GI perforation, daily beer consumption, PVD - Past Surgical History Past Surgical History: Yes Neuro Surgical History: No Pertinent History Cardiac History: No Pertinent History Respiratory Surgery: No Pertinent History GI Surgical History: Exploratory Laparoscopy, Other Genitourinary Surgical Hx: No Pertinent History Musculskeletal Surgical Hx: No Pertinent History Male Surgical History: No Pertinent History Other Surgical History: Bleeding ulcer surgery, stents in BLE, GI perforation repair 04/06/25 Significant Family History: no pertinent family hx - Social History Smoking Status: Heavy tobacco smoker How long have you smoked: 50 + Exposure to second hand smoke: Yes Alcohol: Daily Drug Use: none - Social Determinants of Health Will the patient participate in the screening: Yes Do you worry about a steady place to live?: No Do you have any problems with any of the following?: No known problems In the past 12 months,have you had to go without utilities?: No Have you or anyone in your house had to go without enough: No Transportation Issues: No Has anyone in your support network made you feel unsafe?: No Does the patient want assistance with any of the above?: No - Physical Exam Vital Signs: Vital Signs - 24 hr Temp Pulse Resp BP BP Pulse Ox 04/06/25 09:24 109 H 12 134/66 99 04/06/25 09:09 99.1 F 108 H 14 135/78 99 04/06/25 09:00 98.3 F 118 H 19 123/62 99 04/06/25 08:43 99.1 F 108 H 14 123/62 99 04/06/25 08:28 99 F 110 H 13 135/78 97 04/06/25 08:17 98.0 F 110 H 16 135/78 100 04/06/25 08:13 110 H 16 143/81 97 04/06/25 07:58 98.6 F 106 H 16 147/88 100 04/06/25 07:53 98.6 F 109 H 16 147/88 100 04/06/25 04:18 145/79 04/06/25 04:06 109 H 23 138/83 95 04/06/25 03:54 98.5 F 108 H 18 144/122 94 L 04/06/25 03:46 98.5 F 108 H 18 144/122 94 L 04/06/25 03:43 109 H 20 94 L 04/06/25 03:34 98.5 F 108 H 18 144/122 94 L 04/06/25 03:00 68 18 144/122 99 04/06/25 02:31 65 17 176/114 98 04/06/25 02:01 104 H 19 161/72 95 04/06/25 01:47 103 H 19 179/76 93 L 04/06/25 01:30 159/78 93 L 04/06/25 01:00 95 H 17 139/68 93 L 04/06/25 00:33 149/78 93 L 04/06/25 00:31 97.6 F 112 H 34 H 149/78 94 L General Appearance: no apparent distress, alert Neurologic Exam: alert, 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, cooperative, normal mood/affect, nml cerebellar function, nml station & gait, sensation nml, No motor deficits Eye Exam: PERRL/EOMI, eyes nml inspection Ears, Nose, Throat Exam: normal ENT inspection, TMs normal, pharynx normal, moist mucous membranes Neck Exam: normal inspection, non-tender, supple, full range of motion Respiratory Exam: normal breath sounds, lungs clear, No respiratory distress Cardiovascular Exam: regular rate/rhythm, normal heart sounds, normal peripheral pulses Gastrointestinal/Abdomen Exam: soft, normal bowel sounds (hypoactive), tenderness (midline abd incision with dressing in place), No mass Back Exam: normal inspection, normal range of motion, No CVA tenderness, No vertebral tenderness Extremity Exam: normal inspection, normal range of motion, pelvis stable Skin Exam: normal color, warm, dry, No rash Lymphatic Exam: No adenopathy Results - Labs Lab/Micro Results: Lab Results-Last 24 Hours 04/06/25 04/06/25 04/06/25 Range/Units 00:30 00:38 00:47 WBC 14.3 H (4.23-9.07) x10^3/uL RBC 4.72 (4.63-6.08) x10^6/uL Hgb 12.4 L (13.7-17.5) g/dL Hct 41.8 (40.1-51.0) % MCV 88.6 (79.0-92.2) fL MCH 26.3 (25.7-32.2) pg MCHC 29.7 L (32.3-36.5) g/dL RDW 17.0 H (11.6-14.4) % Plt Count 251 (163-337) x10^3/uL MPV 8.8 L (9.4-12.4) fL Gran % 66.8 (34.0-67.9) % Immature Gran % (Auto) 0.6 H (0.001-0.429) % Nucleat RBC Rel Count 0.0 (0.00-0.2) % Eos # (Auto) 0.24 (0.04-0.54) x10^3/uL Immature Gran # (Auto) 0.08 H (0.001-0.031) x10^3u/L Absolute Lymphs (auto) 3.12 (1.32-3.57) x10^3/uL Absolute Monos (auto) 1.22 H (0.30-0.82) x10^3/uL Absolute Nucleated RBC 0.00 (0.00-0.012) x10^3u/L Lymphocytes % 21.8 (21.8-53.1) % Monocytes % 8.5 (5.3-12.2) % Eosinophils % 1.7 (0.8-7.0) % Basophils % 0.6 (0.2-1.2) % Absolute Granulocytes 9.58 H (1.78-5.38) x10^3/uL Basophils # 0.09 H (0.01-0.08) x10^3/uL Sodium (135-145) mmol/L Potassium (3.5-5.1) mmol/L Chloride (98-107) mmol/L Carbon Dioxide (22-30) mmol/L Anion Gap (5-15) MEQ/L BUN (9-20) mg/dL Creatinine (0.66-1.25) mg/dL Estimated GFR ML/MIN Glucose (74-106) mg/dL Lactic Acid 2.2 H (0.4-2.0) Calcium (8.4-10.2) mg/dL Total Bilirubin (0.2-1.3) mg/dL AST (17-59) U/L ALT (0-50) U/L Alkaline Phosphatase (38-126) U/L Lactate Dehydrogenase 236 (120-246) U/L Troponin I (0.000-0.033) ng/mL Serum Total Protein (6.3-8.2) g/dL Albumin (3.5-5.0) g/dL Amylase (30-110) U/L Lipase (23-300) U/L Urine Color (Yellow) Urine Appearance (Clear) Urine pH (4.6-8.0) Ur Specific [place] (1.005-1.030) Urine Protein (Negative) Urine Glucose (UA) (Negative) mg/dL Urine Ketones (Negative) Urine Blood (Negative) Urine Nitrite (Negative) Urine Bilirubin (Negative) Urine Urobilinogen (0.2) mg/dL Ur Leukocyte Esterase (Negative) U Hyaline Cast (Auto) (0-2) /LPF Urine Microscopic RBC (0-5) /HPF Urine Microscopic WBC (0-5) /HPF Ur Epithelial Cells (None Seen) /HPF Urine Bacteria (None Seen) /HPF Urine Culture Reflexed (NO) Urine Opiates Level (NEGATIVE) Ur Methadone (NEGATIVE) Urine Barbiturates (NEGATIVE) Ur Phencyclidine (PCP) (NEGATIVE) Urine Amphetamine (NEGATIVE) U Benzodiazepine Level (NEGATIVE) Urine Cocaine (NEGATIVE) Urine Marijuana (THC) (NEGATIVE) Ethyl Alcohol (0-10) mg/dL ABO Group Rh Factor Antibody Screen (NEGATIVE) 04/06/25 04/06/2525 Range/Units 00:47 00:47 03:30 WBC (4.23-9.07) x10^3/uL RBC (4.63-6.08) x10^6/uL Hgb (13.7-17.5) g/dL Hct (40.1-51.0) % MCV (79.0-92.2) fL MCH (25.7-32.2) pg MCHC (32.3-36.5) g/dL RDW (11.6-14.4) % Plt Count (163-337) x10^3/uL MPV (9.4-12.4) fL Gran % (34.0-67.9) % Immature Gran % (Auto) (0.001-0.429) % Nucleat RBC Rel Count (0.00-0.2) % Eos # (Auto) (0.04-0.54) x10^3/uL Immature Gran # (Auto) (0.001-0.031) x10^3u/L Absolute Lymphs (auto) (1.32-3.57) x10^3/uL Absolute Monos (auto) (0.30-0.82) x10^3/uL Absolute Nucleated RBC (0.00-0.012) x10^3u/L Lymphocytes % (21.8-53.1) % Monocytes % (5.3-12.2) % Eosinophils % (0.8-7.0) % Basophils % (0.2-1.2) % Absolute Granulocytes (1.78-5.38) x10^3/uL Basophils # (0.01-0.08) x10^3/uL Sodium 135 (135-145) mmol/L Potassium 4.2 (3.5-5.1) mmol/L Chloride 101 (98-107) mmol/L Carbon Dioxide 21 L (22-30) mmol/L Anion Gap 17.5 H (5-15) MEQ/L BUN 10 (9-20) mg/dL Creatinine 0.76 (0.66-1.25) mg/dL Estimated GFR 96.1 ML/MIN Glucose 108 H (74-106) mg/dL Lactic Acid (0.4-2.0) Calcium 9.0 (8.4-10.2) mg/dL Total Bilirubin 0.50 (0.2-1.3) mg/dL AST 44 (17-59) U/L ALT 15 (0-50) U/L Alkaline Phosphatase 50 (38-126) U/L Lactate Dehydrogenase (120-246) U/L Troponin I < 0.012 (0.000-0.033) ng/mL Serum Total Protein 8.1 (6.3-8.2) g/dL Albumin 4.8 (3.5-5.0) g/dL Amylase (30-110) U/L Lipase 125 (23-300) U/L Urine Color (Yellow) Urine Appearance (Clear) Urine pH (4.6-8.0) Ur Specific [place] (1.005-1.030) Urine Protein (Negative) Urine Glucose (UA) (Negative) mg/dL Urine Ketones (Negative) Urine Blood (Negative) Urine Nitrite (Negative) Urine Bilirubin (Negative) Urine Urobilinogen (0.2) mg/dL Ur Leukocyte Esterase (Negative) U Hyaline Cast (Auto) (0-2) /LPF Urine Microscopic RBC (0-5) /HPF Urine Microscopic WBC (0-5) /HPF Ur Epithelial Cells (None Seen) /HPF Urine Bacteria (None Seen) /HPF Urine Culture Reflexed (NO) Urine Opiates Level (NEGATIVE) Ur Methadone (NEGATIVE) Urine Barbiturates (NEGATIVE) Ur Phencyclidine (PCP) (NEGATIVE) Urine Amphetamine (NEGATIVE) U Benzodiazepine Level (NEGATIVE) Urine Cocaine (NEGATIVE) Urine Marijuana (THC) (NEGATIVE) Ethyl Alcohol 105 H (0-10) mg/dL ABO Group B Rh Factor POSITIVE Antibody Screen NEGATIVE (NEGATIVE) 04/06/25 04/06/25 04/06/25 Range/Units 03:31 04:05 04:05 WBC (4.23-9.07) x10^3/uL RBC (4.63-6.08) x10^6/uL Hgb (13.7-17.5) g/dL Hct (40.1-51.0) % MCV (79.0-92.2) fL MCH (25.7-32.2) pg MCHC (32.3-36.5) g/dL RDW (11.6-14.4) % Plt Count (163-337) x10^3/uL MPV (9.4-12.4) fL Gran % (34.0-67.9) % Immature Gran % (Auto) (0.001-0.429) % Nucleat RBC Rel Count (0.00-0.2) % Eos # (Auto) (0.04-0.54) x10^3/uL Immature Gran # (Auto) (0.001-0.031) x10^3u/L Absolute Lymphs (auto) (1.32-3.57) x10^3/uL Absolute Monos (auto) (0.30-0.82) x10^3/uL Absolute Nucleated RBC (0.00-0.012) x10^3u/L Lymphocytes % (21.8-53.1) % Monocytes % (5.3-12.2) % Eosinophils % (0.8-7.0) % Basophils % (0.2-1.2) % Absolute Granulocytes (1.78-5.38) x10^3/uL Basophils # (0.01-0.08) x10^3/uL Sodium (135-145) mmol/L Potassium (3.5-5.1) mmol/L Chloride (98-107) mmol/L Carbon Dioxide (22-30) mmol/L Anion Gap (5-15) MEQ/L BUN (9-20) mg/dL Creatinine (0.66-1.25) mg/dL Estimated GFR ML/MIN Glucose (74-106) mg/dL Lactic Acid (0.4-2.0) Calcium (8.4-10.2) mg/dL Total Bilirubin (0.2-1.3) mg/dL AST (17-59) U/L ALT (0-50) U/L Alkaline Phosphatase (38-126) U/L Lactate Dehydrogenase (120-246) U/L Troponin I < 0.012 (0.000-0.033) ng/mL Serum Total Protein (6.3-8.2) g/dL Albumin (3.5-5.0) g/dL Amylase (30-110) U/L Lipase (23-300) U/L Urine Color Yellow (Yellow) Urine Appearance Clear (Clear) Urine pH 5.0 (4.6-8.0) Ur Specific [place] >=1.030 A (1.005-1.030) Urine Protein 30 (Negative) Urine Glucose (UA) Negative (Negative) mg/dL Urine Ketones Negative (Negative) Urine Blood Small A (Negative) Urine Nitrite Negative (Negative) Urine Bilirubin Negative (Negative) Urine Urobilinogen 0.2 (0.2) mg/dL Ur Leukocyte Esterase Negative (Negative) U Hyaline Cast (Auto) 3-5 A (0-2) /LPF Urine Microscopic RBC 3-5 (0-5) /HPF Urine Microscopic WBC 0-2 (0-5) /HPF Ur Epithelial Cells None Seen (None Seen) /HPF Urine Bacteria None Seen (None Seen) /HPF Urine Culture Reflexed YES (NO) Urine Opiates Level POSITIVE A (NEGATIVE) Ur Methadone NEGATIVE (NEGATIVE) Urine Barbiturates NEGATIVE (NEGATIVE) Ur Phencyclidine (PCP) NEGATIVE (NEGATIVE) Urine Amphetamine NEGATIVE (NEGATIVE) U Benzodiazepine Level NEGATIVE (NEGATIVE) Urine Cocaine NEGATIVE (NEGATIVE) Urine Marijuana (THC) NEGATIVE (NEGATIVE) Ethyl Alcohol (0-10) mg/dL ABO Group Rh Factor Antibody Screen (NEGATIVE) 04/06/25 04/06/25 04/06/25 Range/Units 04:30 08:11 08:30 WBC (4.23-9.07) x10^3/uL RBC (4.63-6.08) x10^6/uL Hgb (13.7-17.5) g/dL Hct (40.1-51.0) % MCV (79.0-92.2) fL MCH (25.7-32.2) pg MCHC (32.3-36.5) g/dL RDW (11.6-14.4) % Plt Count (163-337) x10^3/uL MPV (9.4-12.4) fL Gran % (34.0-67.9) % Immature Gran % (Auto) (0.001-0.429) % Nucleat RBC Rel Count (0.00-0.2) % Eos # (Auto) (0.04-0.54) x10^3/uL Immature Gran # (Auto) (0.001-0.031) x10^3u/L Absolute Lymphs (auto) (1.32-3.57) x10^3/uL Absolute Monos (auto) (0.30-0.82) x10^3/uL Absolute Nucleated RBC (0.00-0.012) x10^3u/L Lymphocytes % (21.8-53.1) % Monocytes % (5.3-12.2) % Eosinophils % (0.8-7.0) % Basophils % (0.2-1.2) % Absolute Granulocytes (1.78-5.38) x10^3/uL Basophils # (0.01-0.08) x10^3/uL Sodium (135-145) mmol/L Potassium (3.5-5.1) mmol/L Chloride (98-107) mmol/L Carbon Dioxide (22-30) mmol/L Anion Gap (5-15) MEQ/L BUN (9-20) mg/dL Creatinine (0.66-1.25) mg/dL Estimated GFR ML/MIN Glucose (74-106) mg/dL Lactic Acid 1.1 (0.4-2.0) Calcium (8.4-10.2) mg/dL Total Bilirubin (0.2-1.3) mg/dL AST (17-59) U/L ALT (0-50) U/L Alkaline Phosphatase (38-126) U/L Lactate Dehydrogenase (120-246) U/L Troponin I (0.000-0.033) ng/mL Serum Total Protein (6.3-8.2) g/dL Albumin (3.5-5.0) g/dL Amylase 76 (30-110) U/L Lipase 128 (23-300) U/L Urine Color (Yellow) Urine Appearance (Clear) Urine pH (4.6-8.0) Ur Specific [place] (1.005-1.030) Urine Protein (Negative) Urine Glucose (UA) (Negative) mg/dL Urine Ketones (Negative) Urine Blood (Negative) Urine Nitrite (Negative) Urine Bilirubin (Negative) Urine Urobilinogen (0.2) mg/dL Ur Leukocyte Esterase (Negative) U Hyaline Cast (Auto) (0-2) /LPF Urine Microscopic RBC (0-5) /HPF Urine Microscopic WBC (0-5) /HPF Ur Epithelial Cells (None Seen) /HPF Urine Bacteria (None Seen) /HPF Urine Culture Reflexed (NO) Urine Opiates Level (NEGATIVE) Ur Methadone (NEGATIVE) Urine Barbiturates (NEGATIVE) Ur Phencyclidine (PCP) (NEGATIVE) Urine Amphetamine (NEGATIVE) U Benzodiazepine Level (NEGATIVE) Urine Cocaine (NEGATIVE) Urine Marijuana (THC) (NEGATIVE) Ethyl Alcohol < 10 (0-10) mg/dL ABO Group Rh Factor Antibody Screen (NEGATIVE) - Radiology Impressions Radiology Exams & Impressions: Radiology Procedures Category Date Time Status CTA ABD/PEL W AND/OR W/O CONTR [CT] Stat Exams 04/06/25 00:34 Completed CTA CHEST W AND/OR WO [CT] Stat Exams 04/06/25 00:39 Completed - Other Procedures and Tests Respiratory Therapy 04/06/25 03:42 Respiratory Therapy Assessment DAILY 04/06/25 07:01 BiPap/CPAP ROUTINE 04/06/25 07:54 Respiratory Therapy Consult ONCE Assessment/Plan (1) Perforated gastric ulcer Current Visit: Yes Status: Acute Assessment & Plan: - GS consult - POD #1 From repair with Claude patch repair and Gastro- jejunostomy procedure - MOrphine IV for pain - NPO - NG in place to LIS - CBC, CMP reviewed Code(s): K25.5 - CHRONIC OR UNSPECIFIED GASTRIC ULCER WITH PERFORATION (2) Perforated abdominal viscus Current Visit: Yes Status: Acute Assessment & Plan: - POD #1 - GS consulted and notes reviewed- agree with plan of care - CTA Abd/Pelvis CTA: 1. Mild intraperitoneal free air are noted adjacent to the hepatic surface, within lesser sac and mid abdomen, close to abdominal wall- suggestive of pneumoperitoneum.- possibility of hollow viscus perforation likely.- post oral contrast evaluation suggested.-new finding. 2. Possible focal discontinuity is seen in the wall of pylorus with adjacent air focus- Possibility of perforation.- suggest post oral contrast evaluation. new finding. 3. Sliding hiatus hernia noted.-stable. 4. Mild mucosal edema is noted involving ileal loop in right lower quadrant with mild adjacent mesenteric congestion is seen - suggest possibility of enteritis changes.-new finding. 5. Diffuse atherosclerotic calcification is noted involving aorta and iliac arteries. No significant stenosis/aneurysm-stable. 6. Small metallic clip is noted in the region of pancreatic head - clinical correlation suggested.-stable. Code(s): R19.8 - OTH SYMPTOMS AND SIGNS INVOLVING THE DGSTV SYS AND ABDOMEN (3) Abdominal pain Current Visit: Yes Status: Acute Assessment & Plan: - 2:2 above dxs- see plans above Code(s): R10.9 - UNSPECIFIED ABDOMINAL PAIN (4) Dehydration Current Visit: Yes Status: Acute Assessment & Plan: - Anion gap 17.5 - IVF Code(s): E86.0 - DEHYDRATION (5) COPD (chronic obstructive pulmonary disease) Current Visit: Yes Status: Chronic Assessment & Plan: - Chronic - Came up from surgery on bipap, now on 4lNC 93% - Baseline oxygen 3LNC - Lung sounds clear - DUONEBS, Continue Home inhalers\ - CTA Chest: IMPRESSION: Both lungs shows mild diffuse emphysema-stable. No obvious pulmonary embolism. Mild ascites noted. No other new interval abnormality since prior study. (6) Tobacco abuse Current Visit: No Status: Chronic Assessment & Plan: - Advised cessation- education provided - Nicotine patch Code(s): Z72.0 - TOBACCO USE (7) Alcohol intoxication Current Visit: No Status: Resolved Assessment & Plan: - Resolved since admission - Alcohol level < 10 now - Alcohol withdraw protocol - IVF - Advised cessation (8) RLS (restless legs syndrome) Current Visit: Yes Status: Chronic Assessment & Plan: - Iron panel pending - Does not take any home meds for this (9) Chronic back pain Current Visit: Yes Status: Chronic Assessment & Plan: - Currently receiving Morphine for pain since NPO - Does not take home meds for this Code(s): M54.9 - DORSALGIA, UNSPECIFIED; G89.29 - OTHER CHRONIC PAIN (10) Lactic acidosis Current Visit: Yes Status: Resolved Assessment & Plan: - LA on admission 2.2- repeat 1.1 - IVF started in ER and given in OR - IVF - BC x2 not ordered on admission VTE: SCD's PPI: Protonix Next of KIN: children D/C plan: 4-5 days- per surgery recs Code status: Full PLan of care time > 50 minutes Code(s): E87.20 - ACIDOSIS, UNSPECIFIED
[2025-04-06] MEDS ORDERED: Protonix 40MG Tablet PO SCH (10:00)
[2025-04-06] MEDS: CEFOXITIN 2 GM/100 ML NACL IVPB 2 GM/100 ML IVPB IV SCH (10:04)
[2025-04-06] MEDS: PROTONIX 40 MG IV IV SCH (10:12)
[2025-04-06] MEDS: solu-MEDROL 20 MG, Sterile H2O 10 ml 1 ML IV SCH (10:12)
[2025-04-06] MEDS: Zithromax 250 MG TABLET PO SCH (10:42)
[2025-04-06] MEDS: DUONEB 0.5-3 MG/3 ml Neb IH SCH (11:16)
[2025-04-06] MEDS: Nicoderm CQ 21 MG TOP SCH (12:57)
--- NOTE | 2025-04-06 13:52 | CONS ---
ADMISSION DIAGNOSIS: Free air consistent with gastrointestinal perforation. HISTORY: A 69-year-old white male, looks about his age, fairly thin, fairly elderly, acute pain of 16 hours duration. PAST MEDICAL HISTORY: HOME MEDICATIONS: None. ALLERGIES: None. SURGERIES: He has had a previous bleeding duodenal ulcer and I suspect he had an EGD with a clip. I do not see any abdominal incisions. FAMILY HISTORY: Negative. SOCIAL HISTORY: Positive tobacco, negative EtOH. REVIEW OF SYSTEMS: CARDIOVASCULAR: Negative. PULMONARY: Negative. GASTROINTESTINAL: Present illness. History of previous duodenal bleeding ulcer. GENITOURINARY: Negative. ORTHOPEDIC/NEUROLOGY: Negative. PHYSICAL EXAMINATION: GENERAL: Slender male. Vital signs are stable. Alert, oriented. NECK: No neck adenopathy. CHEST: Clear. CORONARY: Regular. ABDOMEN: Rigid. PELVIS: Stable. Fairly tall, slender male. IMPRESSION: Acute abdomen with acute gastrointestinal perforation, probably perforated ulcer. PLAN: Immediate exploratory laparotomy and the OR team was called in from the minute that I was called from the emergency room. They are here. He is being seen by Anesthesia and the OR nurse and will be transferred to the OR immediately with a consent for exploratory laparotomy for perforation.
--- NOTE | 2025-04-06 13:53 | OP ---
SURGERY DATE/TIME: 04/06/2025 [id number] PREOPERATIVE DIAGNOSES: 1) Acute abdominal perforation. 2) TI perforation. POSTOPERATIVE DIAGNOSES: 1) Major perforated duodenal ulcer, 1 cm. 2) Duodenal obstruction secondary to this chronic duodenal ulcer disease. PROCEDURES: 1) Claude patch. 2) Gastrojejunostomy. SURGEON: Dylon Goodwin MD. ANESTHESIA: General. COMPLICATIONS: None. CONDITION: Stable. INDICATIONS: He was known to have free air and he had an acute abdomen with acute rigidity of the abdomen. A full note was dictated preoperatively. DESCRIPTION OF PROCEDURE: He was taken to surgery. General anesthetic. Routine prep and drape. Upper midline incision. There was 500 mL of clear free stomach fluid that was suctioned throughout all 4 quadrants. Irrigated and suctioned. Attention turned. The stomach itself was satisfactory. Nasogastric tube was in the satisfactory position. Pylorus satisfactory. Once inch down, right at the junction of the anterior wall of the pancreas was a 1 cm duodenal ulcer. There was substantial scarring here. It almost looked like there was a cicatrix and the suction tip could not be placed into the ulcer. It could not be placed distally. A blunt clamp was able to be placed distally but it was about 8 mm. It certainly seemed tight and snug and as noted, the plastic suction tip could not be. With this in mind, the Claude patch was placed with 2 sutures of #2-0 PDS, placed with the back wall and front wall. The tongue of omentum was brought in without any tension and these 2 sutures tied down, buttressing this patch into the hole. Backing up behind the pylorus between 1 inch and 2 inches, the jejunum, ligament of Treitz about 40 cm down, brought up, [id number], 8 simple interrupted seromuscular sutures. Gastrotomy enterotomy about 1 inch. Posterior wall was run from one corner to the other with mucosal muscular suture. I started to get a little bit for the backside of the corners. Interrupted 3-0 PDS was sequentially placed around the entire 220 degrees for this anastomosis. Good solid anastomosis. The field was totally dry. Anterior abdominal wall closed with looped 0 PDS. Tissue irrigated and skin closed with shira. No drains applied. Nasogastric tube in position. Hall was satisfactory with clear urine. There was no family in the waiting room.
[2025-04-06 14:11] LABS: Iron 101 ug/dL (49-181); TIBC 333 ug/dL (261-497)
[2025-04-06 15:03] LABS: Ferritin 16.7 ng/mL (17.9-464)
[2025-04-07] MEDS: PROVENTIL 2.5 MG/3 ML NEB IH PRN (04:32)
[2025-04-07] MEDS: MORPHINE SULFATE 2 MG INJ IV PRN (04:37)
[2025-04-07 05:00] LABS: Hematocrit 34.5 % (40.1-51.0); Hemoglobin 10.3 g/dL (13.7-17.5); Mean Corpuscular Hemoglobin 26.3 pg (25.7-32.2); Mean Corpuscular Hgb Concent. 29.9 g/dL (32.3-36.5); Platelet Count 217 x10^3/uL (163-337); Red Blood Count 3.91 x10^6/uL (4.63-6.08); White Blood Count 16.2 x10^3/uL (4.23-9.07)
--- NOTE | 2025-04-07 05:25 | PCM.NOTE ---
Date and Time: 04/07/25 0520 Subjective Assessment: Mr. Patel is a 69 year old male with a pmhx of COPD, emphysema, restless leg syndrome, chronic back pain, heavy alcohol use (approximately six beers daily), and heavy tobacco use (three to four packs per day), who presented to the ED on 04/05/25 with abrupt epigastric pain that woke him from sleep, rated 10/10. He denied vomiting, diarrhea, or chest pain, and endorsed only baseline dyspnea. On arrival he was tachycardic and tachypneic but maintained his usual oxygen requirement. Initial labs revealed leukocytosis at 14.3, stable hemoglobin at 12.4, normal lactic acid of 1.1 after an initial elevated value of 2.2 in the ED, and a mildly elevated anion gap of 17.5 suggestive of dehydration. CTA abdomen demonstrated new free intraperitoneal air adjacent to the hepatic surface, within the lesser sac, and throughout the mid-abdomen, strongly suggestive of a hollow viscus perforation. A focal discontinuity in the pyloric wall with an adjacent air pocket indicated a likely perforated gastric ulcer. Mild mucosal edema in the right lower-quadrant ileal loops with mesenteric congestion suggested an element of enteritis. A stable sliding hiatal hernia, diffuse atherosclerotic calcifications without aneurysm or stenosis, and a stable metallic clip at the pancreatic head were also noted. CTA chest showed stable emphysematous changes without pulmonary embolism and mild ascites. Given these findings, the patient was taken emergently to the operating room where general surgery performed a Claude patch repair of a perforated gastric ulcer with associated pyloric obstruction and completed a gastrojejunostomy. Postoperatively, he has a midline abdominal incision, NG tube to low intermittent suction, and initially required 100% BiPAP, later successfully weaned to 4 L NC at 93%, which approximates his baseline. He remains NPO and is receiving IV fluids as well as IV morphine for pain control. Cefoxitin was initiated per surgical recommendation. His alcohol level on the morning after surgery was <10, consistent with clearance; withdrawal precautions remain in place. Family was updated extensively regarding surgery and postoperative expectations. 04/07/25: Met with patient bedside. Endorses nasal congestion and mild pain at surgical sit (1/10 on numerical pain scale). (-)BM/flatulence. Hypoactive BS x 4 quads. NG to LIS with moderate drainage. MLI CDI no signs of infection. Patient ambulating well. Incentive spirometer at bedside and patient reports he is using. Denies fever,cough, cp, BOTELLO, dizziness, N/V/D. - Review of Systems Constitutional: No Symptoms Eyes: No Symptoms Ears, Nose, & Throat: No Symptoms Respiratory: Short Of Breath Cardiac: No Symptoms Abdominal/Gastrointestinal: Abdominal Pain (at surgical site -mild) Genitourinary Symptoms: No Symptoms Musculoskeletal: No Symptoms Skin: Other (MLI CDI with surgical dressing) Neurological: No Symptoms Psychological: No Symptoms Endocrine: No Symptoms Hematologic/Lymphatic: No Symptoms Objective Exam General Appearance: no apparent distress Neurologic Exam: alert, 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, cooperative Skin Exam: other (MLI CDI -no surrounding erthema/drainage/streaking) Wound Assessment: Skin/Wound Assessment Wound/Incision Assessment Start: 04/06/25 07:58 Text: Status: Active Freq: Q4H Protocol: Document 04/07/25 04:00 AK (Rec: 04/07/25 04:03 AK [id number]) Wound/Incision Assessment Abdomen Wound Assessment Shift Assessment Wound Type Incision Wound Stage Non Pressure Wound Dressing Status Dry & Intact Drainage Amount None Drainage Odor None/Absent Primary Dressing All-in-one Comment dressing CDI - ROSHAN wound Wound Photo Photo Taken No Eye Exam: PERRL Ears, Nose, Throat Exam: normal ENT inspection Neck Exam: normal inspection Respiratory Exam: normal breath sounds, diminished breath sounds Cardiovascular Exam: normal heart sounds, tachycardia Gastrointestinal/Abdomen Exam: soft, tenderness, other (MLI) Extremity Exam: normal inspection Back Exam: normal inspection Objective Data Vital Signs: Vital Signs - 24 hr Temp Pulse Resp BP BP Pulse Ox 04/07/25 04:32 108 H 24 91 L 04/07/25 04:00 97.5 F 108 H 24 128/59 91 L 04/07/25 00:00 97.1 F 101 H 14 126/74 97 04/06/25 19:30 97.3 F 105 H 20 134/64 93 L 04/06/25 18:51 101 H 22 92 L 04/06/25 16:00 98.1 F 102 H 24 132/62 96 04/06/25 15:42 106 H 28 H 96 04/06/25 12:36 99.2 F 108 H 23 122/58 94 L 04/06/25 12:00 20 04/06/25 11:17 109 H 23 93 L 04/06/25 10:48 98.5 F 109 H 14 147/67 92 L 04/06/25 10:13 99.8 F 105 H 17 147/67 93 L 04/06/25 09:52 96 04/06/25 09:43 100.5 F 104 H 16 130/60 95 04/06/25 09:24 109 H 12 134/66 99 04/06/25 09:13 99.3 F 108 H 14 134/66 99 04/06/25 09:09 99.1 F 108 H 14 135/78 99 04/06/25 09:00 98.3 F 118 H 19 123/62 99 04/06/25 08:43 99.1 F 108 H 14 123/62 99 04/06/25 08:28 99 F 110 H 13 135/78 97 04/06/25 08:17 98.0 F 110 H 16 135/78 100 04/06/25 08:13 110 H 16 143/81 97 04/06/25 07:58 98.6 F 106 H 16 147/88 100 04/06/25 07:53 98.6 F 109 H 16 147/88 100 Pain Assessment - Last Documented Pain Intensity [Abdomen] 1 Pain Intensity 0 Pain Scale Used 0-10 Pain Scale Intake and Output: Intake & Output 04/04/25 04/05/25 04/06/25 04/07/25 11:59 11:59 11:59 11:59 Intake Total 2096 Output Total 878 3950 Balance -875 -1854 Weight 70 kg Lab Results: Lab Results-Last 24 Hours 04/06/25 04/06/25 04/06/25 Range/Units 04:30 08:11 08:30 Lactic Acid 1.1 (0.4-2.0) Iron (49-181) ug/dL TIBC (261-497) ug/dL Iron Saturation (20-39) % Ferritin (17.9-464) ng/mL Amylase 76 (30-110) U/L Lipase 128 (23-300) U/L Vitamin B12 (239-931) pg/mL Folic Acid (2.76 - >20) ng/mL Ethyl Alcohol < 10 (0-10) mg/dL 04/06/25 04/06/25 Range/Units 08:30 08:30 Lactic Acid (0.4-2.0) Iron 101 (49-181) ug/dL TIBC 333 (261-497) ug/dL Iron Saturation 30 (20-39) % Ferritin 16.7 L (17.9-464) ng/mL Amylase (30-110) U/L Lipase (23-300) U/L Vitamin B12 566 (239-931) pg/mL Folic Acid 8.95 (2.76 - >20) ng/mL Ethyl Alcohol (0-10) mg/dL Radiology Exams: Radiology Procedures Category Date Time Status CTA ABD/PEL W AND/OR W/O CONTR [CT] Stat Exams 04/06/25 00:34 Completed CTA CHEST W AND/OR WO [CT] Stat Exams 04/06/25 00:39 Completed Medications: Medications Generic Name Dose Route Start Last Admin Trade Name Freq PRN Reason Stop Dose Admin Albuterol Sulfate 2.5 mg 04/06/25 08:18 04/07/25 04:32 Albuterol Sulfate 2.5 Mg/3 Ml Neb 05/06/25 08:17 2.5 mg Q4HPRN PRN Administration SHORTNESS OF BREATH/WHEEZING Albuterol Sulfate 2 puff 04/06/25 08:30 Albuterol Common Canister Inhaler 05/06/25 08:29 Q4H PRN PRN Albuterol/Ipratropium 3 ml 04/06/25 11:00 04/06/25 18:47 Ipratropium/Albuterol Sulfate 3 Ml Ampul.Neb 05/06/25 10:59 3 ml QIDRT ALYSSA Administration Diazepam 0 mg 04/06/25 08:17 Diazepam 10 Mg/2 Ml Disp.Syringe IV 05/06/25 08:16 Q2H PRN PRN CIWA SCORE Protocol Potassium Chloride/Dextrose/Sod Cl 1,000 mls @ 90 mls/hr 04/06/25 08:30 04/06/25 20:34 D5w/0.45ns W/ 20meq Kcl 1000 Ml IV 05/06/25 08:29 90 mls/hr .Q11H7M ALYSSA Administration Cefoxitin Sodium 2 gm in 100 mls @ 200 mls/hr 04/06/25 09:00 04/07/25 00:25 Cefoxitin 2 Gm/100 Ml Nacl Ivpb IV 05/06/25 08:59 200 mls/hr Q8H ALYSSA Administration Miscellaneous Information 1 each 04/06/25 08:30 Medication Intervention 1 Each Each 05/06/25 08:29 .RT TO CHECK ALYSSA Miscellaneous Information 1 each 04/06/25 13:00 Medication Intervention 1 Each Each 05/06/25 12:59 .RT TO CHECK ALYSSA Morphine Sulfate 2 mg 04/06/25 08:12 04/07/25 04:37 Morphine Sulfate 2 Mg/Ml Inj IV 04/11/25 08:11 2 mg Q2H PRN PRN Administration PAIN Nicotine 21 mg 04/06/25 12:30 04/06/25 12:57 Nicotine 21 Mg/Patch Patch TOP 05/06/25 12:29 21 mg Q24H10 ALYSSA Administration Ondansetron HCl 4 mg 04/06/25 08:13 Ondansetron Hcl 4 Mg/2 Ml Vial IV 05/06/25 08:12 Q6H PRN PRN NAUSEA/VOMITING Pantoprazole Sodium 40 mg 04/06/25 10:00 04/06/25 21:17 Pantoprazole 40 Mg Vial IV 05/06/25 09:59 40 mg BID ALYSSA Administration Discontinued Medications Generic Name Dose Route Start Last Admin Trade Name Freq PRN Reason Stop Dose Admin Albuterol/Ipratropium 3 ml 04/06/25 03:34 04/06/25 03:43 Ipratropium/Albuterol Sulfate 3 Ml Ampul.Neb IH 04/06/25 03:35 3 ml STAT ONE Administration Albuterol/Ipratropium Confirm 04/06/25 03:42 Ipratropium/Albuterol Sulfate 3 Ml Ampul.Neb Administered 04/06/25 03:43 Dose 3 ml IH .STK-MED ONE Azithromycin 250 mg 04/06/25 10:00 04/06/25 10:42 Azithromycin 250 Mg Tablet PO 04/09/25 10:01 Not Given DAILY ALYSSA Bupivacaine HCl Confirm 04/06/25 05:06 Bupivacaine Hcl 2.5 Mg/Ml 10 Ml Administered 04/06/25 05:07 Dose 10 ml .ROUTE .STK-MED ONE Methylprednisolone Sodium 0 mg 04/06/25 10:00 04/06/25 10:12 Succinate 20 mg/ Sterile Water IV 05/06/25 09:59 20 mg 1 ml Q12HT ALYSSA Administration Dexamethasone Sodium Phosphate Confirm 04/06/25 04:36 Dexamethasone Sodium Phosphate 4 Mg/Ml Vial Administered 04/06/25 04:37 Dose 8 mg .ROUTE .STK-MED ONE Fentanyl Citrate Confirm 04/06/25 04:35 Fentanyl Citrate 100 Mcg/2 Ml* Vial Administered 04/06/25 04:36 Dose 200 mcg .ROUTE .STK-MED ONE Hydromorphone HCl 1 mg 04/06/25 00:33 04/06/25 00:48 Hydromorphone 1 Mg/1ml Inj IV 04/06/25 00:34 1 mg STAT ONE Administration Hydromorphone HCl Confirm 04/06/25 00:46 Hydromorphone 1 Mg/1ml Inj Administered 04/06/25 00:47 Dose 1 mg .ROUTE .STK-MED ONE Hydromorphone HCl 1 mg 04/06/25 03:21 04/06/25 03:28 Hydromorphone 1 Mg/1ml Inj IV 04/06/25 03:22 1 mg STAT ONE Administration Hydromorphone HCl Confirm 04/06/25 03:26 Hydromorphone 1 Mg/1ml Inj Administered 04/06/25 03:27 Dose 1 mg .ROUTE .STK-MED ONE Sodium Chloride 1,000 mls @ 999 mls/hr 04/06/25 00:33 04/06/25 01:47 Sodium Chloride 0.9% 1000 Ml IV 04/06/25 01:33 Infused .Q1H1M STA Infusion Sodium Chloride Confirm 04/06/25 00:46 Sodium Chloride 0.9% 1000 Ml Administered 04/06/25 00:47 Dose 1,000 mls @ ud .ROUTE .STK-MED ONE Piperacillin Sod/Tazobactam 100 mls @ 200 mls/hr 04/06/25 03:17 04/06/25 03:39 Sod 3.375 gm/ Sodium Chloride IV 04/06/25 03:46 200 mls/hr STAT STA 200 mls/hr Administration Sodium Chloride Confirm 04/06/25 03:32 Sodium Chloride 0.9% Administered 04/06/25 03:33 Dose 100 mls @ ud .ROUTE .STK-MED ONE Sodium Chloride Confirm 04/06/25 03:39 Sodium Chloride 0.9% 1000 Ml Administered 04/06/25 03:40 Dose 1,000 mls @ ud .ROUTE .STK-MED ONE Sodium Chloride 1,000 mls @ 100 mls/hr 04/06/25 03:45 04/06/25 03:40 Sodium Chloride 0.9% 1000 Ml IV 05/06/25 03:44 100 mls/hr .Q10H ALYSSA Administration Acetaminophen Confirm 04/06/25 04:54 Ofirmev Administered 04/06/25 04:55 Dose 100 mls @ ud IV .STK-MED ONE Lactated Ringer's Confirm 04/06/25 05:49 Lactated Ringers Administered 04/06/25 05:50 Dose 1,000 mls @ ud IV .STK-MED ONE Ketamine HCl Confirm 04/06/25 05:11 Ketamine Hcl 50 Mg/Ml Administered 04/06/25 05:12 Dose 50 mg .ROUTE .STK-MED ONE Lidocaine HCl Confirm 04/06/25 04:35 Lidocaine - Mpf 2% 5 Ml Vial Administered 04/06/25 04:36 Dose 10 ml .ROUTE .STK-MED ONE Magnesium Sulfate Confirm 04/06/25 04:54 Magnesium Sulfate Injection Administered 04/06/25 04:55 Dose 1 gm .ROUTE .STK-MED ONE Methylprednisolone 4 mg 04/06/25 08:30 Methylprednisolone 4 Mg Packet PO 05/06/25 08:29 UD ALYSSA Midazolam HCl Confirm 04/06/25 05:12 Midazolam Hcl 2 Mg/2 Ml Vial Administered 04/06/25 05:13 Dose 2 mg .ROUTE .STK-MED ONE Ondansetron HCl 4 mg 04/06/25 00:35 04/06/25 00:48 Ondansetron Hcl 4 Mg/2 Ml Vial IV 04/06/25 00:36 4 mg STAT ONE Administration Ondansetron HCl Confirm 04/06/25 00:46 Ondansetron Hcl 4 Mg/2 Ml Vial Administered 04/06/25 00:47 Dose 4 mg .ROUTE .STK-MED ONE Ondansetron HCl Confirm 04/06/25 04:35 Ondansetron Hcl 4 Mg/2 Ml Vial Administered 04/06/25 04:36 Dose 8 mg .ROUTE .STK-MED ONE Pantoprazole Sodium 40 mg 04/06/25 10:00 Protonix (Pantoprazole) 40 Mg Tablet PO 05/06/25 09:59 QAM ALYSSA Piperacillin Sod/Tazobactam Sod Confirm 04/06/25 03:26 Piperacillin/Tazobactam Sodium 3.375 Gm Vial Administered 04/06/25 03:27 Dose 3.375 gm IV .STK-MED ONE Propofol Confirm 04/06/25 04:35 Propofol 200 Mg/20 Ml Vial Administered 04/06/25 04:36 Dose 400 mg IV .STK-MED ONE Rocuronium [place] Confirm 04/06/25 04:35 Rocuronium [place] 50 Mg/5 Ml Vial Administered 04/06/25 04:36 Dose 100 mg IV .STK-MED ONE Sugammadex Sodium Confirm 04/06/25 04:35 Sugammadex Sodium 200 Mg/2 Ml Vial Administered 04/06/25 04:36 Dose 400 mg IV .STK-MED ONE Vasopressin Confirm 04/06/25 04:54 Vasopressin 20 Unit/Ml Ml Administered 04/06/25 04:55 Dose 20 unit .ROUTE .STK-MED ONE Multi-Disciplinary Progress Notes: Multi-Disciplinary Progress Notes 04/06/25 17:01 Respiratory Note by Jackelyn Weinstein Placed on 40% venti-mask due to C/O nasal congestion and unable to breathe thru his nose. SpO2 decreased to 81%. After placing on Venti-mask, SpO2 increased to 95%. Initialized on 04/06/25 17:01 - END OF NOTE 04/06/25 14:04 Case Management Note by Samira Chatman PATIENT STILL DROWSY FROM OR- WILL DISCUSS CM/DISCHARGE NEEDS TOMORROW ONCE MORE ALERT Initialized on 04/06/25 14:04 - END OF NOTE Assessment/Plan (1) Perforated gastric ulcer Current Visit: Yes Status: Acute Assessment & Plan: CTA abdomen showing new free intraperitoneal air and focal pyloric wall discontinuity with adjacent air, consistent with perforation. POD#2 after Claude patch repair and gastrojejunostomy. NPO with NG to LIS. -(-)BS/BM/flatulence -Up in chair/ambulating today -IVF D5, 1/2NS, KCL Cefoxitin per general surgery. IV morphine for pain control. Continued IV fluids; monitoring CBC/CMP. Close coordination with general surgery; serial abdominal exams. -WBC at 16.2 -LA WNL -Add Flagyl -DC phelan cath Code(s): K25.5 - CHRONIC OR UNSPECIFIED GASTRIC ULCER WITH PERFORATION (2) Perforated abdominal viscus Current Visit: Yes Status: Acute Assessment & Plan: CTA findings of pneumoperitoneum involving lesser sac, hepatic surface, and mid-abdomen consistent with hollow viscus perforation. Confirmed intraoperatively. POD#2 postoperative management. Maintain NG decompression, NPO status, and IV antibiotics. Monitor for postoperative complications (leak, abscess, sepsis). Serial labs and abdominal assessments. Code(s): R19.8 - OTH SYMPTOMS AND SIGNS INVOLVING THE DGSTV SYS AND ABDOMEN (3) Abdominal pain Current Visit: Yes Status: Acute Assessment & Plan: Directly related to perforation and peritonitis. Managed through surgical repair. Analgesia with IV morphine due to NPO status. Code(s): R10.9 - UNSPECIFIED ABDOMINAL PAIN (4) Dehydration Current Visit: Yes Status: Acute Assessment & Plan: Elevated anion gap (17.5) and initial lactate elevation consistent with volume depletion - now WNL Responded to IV fluids with lactate improvement from 2.2 - 1.1. Continued hydration with IV fluids and electrolyte monitoring. Code(s): E86.0 - DEHYDRATION (5) COPD (chronic obstructive pulmonary disease) Current Visit: Yes Status: Chronic Assessment & Plan: CTA chest showing stable diffuse emphysema. Initially required BiPAP postop; now on 8 L oxymizer at 90%, baseline 3 L. DuoNebs and continuation of home inhalers Maintain goal oxygen saturation greater than 90%; avoid hyperoxia. (6) Chronic back pain Current Visit: Yes Status: Chronic Assessment & Plan: No routine home regimen documented. IV morphine currently used since NPO. Transition to PO pain meds when allowable. Code(s): M54.9 - DORSALGIA, UNSPECIFIED; G89.29 - OTHER CHRONIC PAIN (7) RLS (restless legs syndrome) Current Visit: Yes Status: Chronic Assessment & Plan: No home medications. Iron studies pending. Symptomatic measures once PO allowed. (8) Lactic acidosis Current Visit: Yes Status: Resolved Assessment & Plan: Initial 2.2 improved to 1.1 with IV fluids. No evidence of sepsis. Continued hydration and monitoring for clinical change. Code(s): E87.20 - ACIDOSIS, UNSPECIFIED (9) AA (alcohol abuse) Current Visit: No Status: Acute Assessment & Plan: History of 6 beers daily; level <10 today. At risk for withdrawal in postoperative period. CIWA monitoring and withdrawal precautions in place. Adequate fluids and supportive care; thiamine as needed. Counseling provided. Code(s): F10.10 - ALCOHOL ABUSE, UNCOMPLICATED (10) Tobacco abuse Current Visit: No Status: Chronic Assessment & Plan: Heavy long-term use (34 PPD). Nicotine patch for withdrawal. Reinforced cessation counseling. VTE: SCDs PPI: Protonix Dispo: 2-5 days pending surgery eval Code status: Full code Plan of care time spent > 40 mins Code(s): Z72.0 - TOBACCO USE
[2025-04-07 05:39] LABS: Calcium 8.4 mg/dL (8.4-10.2); Carbon Dioxide 23.0 mmol/L (22-30); Creatinine 1 0.65 mg/dL (0.66-1.25); EST GLOMERULAR FILTRATION RATE 100.7 ML/MIN; Glucose 133.0 mg/dL (74-106); Potassium 4.3 mmol/L (3.5-5.1); SGOT/AST 41.0 U/L (17-59); SGPT/ALT 18.0 U/L (0-50); Total Protein 6.5 g/dL (6.3-8.2)
[2025-04-07] MEDS ORDERED: TIOTROPIUM BR IN SCH (10:00)
[2025-04-07] MEDS ORDERED: OLODATEROL HCL MIST IN SCH (10:00)
[2025-04-07] MEDS ORDERED: [UNRECOGNIZED DRUG - OTHER] IN SCH (10:00)
[2025-04-07] MEDS: FLAGYL 500 MG IVPB 500 MG/100 ML BAG IV SCH (11:39)
[2025-04-07] MEDS: ENOXAPARIN SODIUM SQ SCH (11:39)
[2025-04-08 05:02] LABS: BASOPHIL % 0.4 % (0.2-1.2); Basophil (Absolute #) 0.04 x10^3/uL (0.01-0.08); Eosinophil (Absolute #) 0.04 x10^3/uL (0.04-0.54); Hematocrit 32.4 % (40.1-51.0); Hemoglobin 9.6 g/dL (13.7-17.5); IMMATURE GRAN # 0.05 x10^3u/L (0.001-0.031); IMMATURE GRAN % 0.4 % (0.001-0.429); Lymphocyte (Absolute #) 1.30 x10^3/uL (1.32-3.57); Mean Corpuscular Hemoglobin 26.7 pg (25.7-32.2); Mean Corpuscular Hgb Concent. 29.6 g/dL (32.3-36.5); Monocyte (Absolute #) 0.78 x10^3/uL (0.30-0.82); NUCLEATED RBC # 0.00 x10^3u/L (0.00-0.012); NUCLEATED RBC % 0.0 % (0.00-0.2); Platelet Count 210 x10^3/uL (163-337); Red Blood Count 3.59 x10^6/uL (4.63-6.08); White Blood Count 11.2 x10^3/uL (4.23-9.07)
[2025-04-08 05:23] LABS: Calcium 8.3 mg/dL (8.4-10.2); Carbon Dioxide 24.0 mmol/L (22-30); Creatinine 1 0.67 mg/dL (0.66-1.25); EST GLOMERULAR FILTRATION RATE 99.8 ML/MIN; Glucose 110.0 mg/dL (74-106); Potassium 3.7 mmol/L (3.5-5.1); SGOT/AST 31.0 U/L (17-59); SGPT/ALT 17.0 U/L (0-50); Total Protein 6.4 g/dL (6.3-8.2)
--- NOTE | 2025-04-08 05:59 | PCM.NOTE ---
Date and Time: 04/08/25 0558 Subjective Assessment: Mr. Patel is a 69 year old male with a pmhx of COPD, emphysema, restless leg syndrome, chronic back pain, heavy alcohol use (approximately six beers daily), and heavy tobacco use (three to four packs per day), who presented to the ED on 04/05/25 with abrupt epigastric pain that woke him from sleep, rated 10/10. He denied vomiting, diarrhea, or chest pain, and endorsed only baseline dyspnea. On arrival he was tachycardic and tachypneic but maintained his usual oxygen requirement. Initial labs revealed leukocytosis at 14.3, stable hemoglobin at 12.4, normal lactic acid of 1.1 after an initial elevated value of 2.2 in the ED, and a mildly elevated anion gap of 17.5 suggestive of dehydration. CTA abdomen demonstrated new free intraperitoneal air adjacent to the hepatic surface, within the lesser sac, and throughout the mid-abdomen, strongly suggestive of a hollow viscus perforation. A focal discontinuity in the pyloric wall with an adjacent air pocket indicated a likely perforated gastric ulcer. Mild mucosal edema in the right lower-quadrant ileal loops with mesenteric congestion suggested an element of enteritis. A stable sliding hiatal hernia, diffuse atherosclerotic calcifications without aneurysm or stenosis, and a stable metallic clip at the pancreatic head were also noted. CTA chest showed stable emphysematous changes without pulmonary embolism and mild ascites. Given these findings, the patient was taken emergently to the operating room where general surgery performed a Claude patch repair of a perforated gastric ulcer with associated pyloric obstruction and completed a gastrojejunostomy. Postoperatively, he has a midline abdominal incision, NG tube to low intermittent suction, and initially required 100% BiPAP, later successfully weaned to 4 L NC at 93%, which approximates his baseline. He remains NPO and is receiving IV fluids as well as IV morphine for pain control. Cefoxitin was initiated per surgical recommendation. His alcohol level on the morning after surgery was <10, consistent with clearance; withdrawal precautions remain in place. Family was updated extensively regarding surgery and postoperative expectations. 04/07/25: Met with patient bedside. Endorses nasal congestion and mild pain at surgical sit (1/10 on numerical pain scale). (-)BM/flatulence. Hypoactive BS x 4 quads. NG to LIS with moderate drainage. MLI CDI no signs of infection. Patient ambulating well. Incentive spirometer at bedside and patient reports he is using. Denies fever,cough, cp, BOTELLO, dizziness, N/V/D. 04/08/25: No overnight events noted. Doing well post-operatively. NG placed. +flatulence. No BM. +BS x 4 quads. Oxygen almost at baseline now at 4L oxymask at 92%. Patient reports pain is tolerable at 2-3 on numerical pain scale. He is able to ambulate and sit up in the chair. He is anxious to have NG removed and get diet started. Denies fever,cough, sob, cp, BOTELLO, dizziness, N/V/D. - Review of Systems Constitutional: No Symptoms Eyes: No Symptoms Ears, Nose, & Throat: No Symptoms Respiratory: No Symptoms Cardiac: No Symptoms Abdominal/Gastrointestinal: Abdominal Pain Genitourinary Symptoms: No Symptoms Musculoskeletal: No Symptoms Skin: Other (MLI CDI) Neurological: No Symptoms Psychological: No Symptoms Endocrine: No Symptoms Hematologic/Lymphatic: No Symptoms Immunological/Allergic: No Symptoms Objective Exam General Appearance: no apparent distress Neurologic Exam: alert, 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, cooperative Skin Exam: other (MLI CDI with surgical dressing - no surrounding erythema/drainage/streaking) Wound Assessment: Skin/Wound Assessment Wound/Incision Assessment Start: 04/06/25 07:58 Text: Status: Active Freq: Q4H Protocol: Document 04/08/25 04:00 EK (Rec: 04/08/25 04:46 EK [id number]) Wound/Incision Assessment Abdomen Wound Assessment Shift Assessment Wound Type Incision Wound Stage Non Pressure Wound Dressing Status Dry & Intact Drainage Amount None Drainage Odor None/Absent General Appearance Well Approximated,[place] Intact Surrounding Tissue [place] Primary Dressing MEPILEX POST SURGICAL DRESSING Wound Photo Photo Taken No Eye Exam: PERRL Ears, Nose, Throat Exam: normal ENT inspection Neck Exam: normal inspection Respiratory Exam: diminished breath sounds, crackles/rales Cardiovascular Exam: regular rate/rhythm, normal heart sounds Gastrointestinal/Abdomen Exam: soft, normal bowel sounds Extremity Exam: normal inspection Back Exam: normal inspection Male Genitalia Exam: deferred Rectal Exam: deferred Objective Data Vital Signs: Vital Signs - 24 hr Temp Pulse Resp BP Pulse Ox 04/08/25 04:00 98.5 F 93 H 24 131/60 94 L 04/08/25 02:24 96 H 22 95 04/08/25 00:00 98.6 F 94 H 22 131/61 96 04/07/25 20:00 24 04/07/25 19:42 97.7 F 103 H 20 138/67 91 L 04/07/25 19:32 105 H 22 90 L 04/07/25 16:00 20 04/07/25 15:43 95.8 F 114 H 20 131/66 92 L 04/07/25 15:15 116 H 20 93 L 04/07/25 13:26 118 H 24 92 L 04/07/25 11:52 98.6 F 111 H 20 146/65 96 04/07/25 10:47 114 H 24 90 L 04/07/25 09:15 93 L 04/07/25 08:00 24 04/07/25 07:36 98.7 F 109 H 24 135/61 94 L 04/07/25 07:04 105 H 22 95 Pain Assessment - Last Documented Pain Intensity [Abdomen] 1 Pain Intensity 1 Pain Scale Used 0-10 Pain Scale Intake and Output: Intake & Output 04/05/25 04/06/25 04/07/25 04/08/25 11:59 11:59 11:59 11:59 Intake Total 2096 2305 Output Total 872 9183 1050 Balance -875 -2377 1255 Weight 70 kg Lab Results: Lab Results-Last 24 Hours 04/08/25 04/08/25 Range/Units 04:23 04:23 WBC 11.2 H (4.23-9.07) x10^3/uL RBC 3.59 L (4.63-6.08) x10^6/uL Hgb 9.6 L (13.7-17.5) g/dL Hct 32.4 L (40.1-51.0) % MCV 90.3 (79.0-92.2) fL MCH 26.7 (25.7-32.2) pg MCHC 29.6 L (32.3-36.5) g/dL RDW 17.4 H (11.6-14.4) % Plt Count 210 (163-337) x10^3/uL MPV 9.7 (9.4-12.4) fL Gran % 80.3 H (34.0-67.9) % Immature Gran % (Auto) 0.4 (0.001-0.429) % Nucleat RBC Rel Count 0.0 (0.00-0.2) % Eos # (Auto) 0.04 (0.04-0.54) x10^3/uL Immature Gran # (Auto) 0.05 H (0.001-0.031) x10^3u/L Absolute Lymphs (auto) 1.30 L (1.32-3.57) x10^3/uL Absolute Monos (auto) 0.78 (0.30-0.82) x10^3/uL Absolute Nucleated RBC 0.00 (0.00-0.012) x10^3u/L Lymphocytes % 11.6 L (21.8-53.1) % Monocytes % 6.9 (5.3-12.2) % Eosinophils % 0.4 L (0.8-7.0) % Basophils % 0.4 (0.2-1.2) % Absolute Granulocytes 9.03 H (1.78-5.38) x10^3/uL Basophils # 0.04 (0.01-0.08) x10^3/uL Sodium 134 L (135-145) mmol/L Potassium 3.7 (3.5-5.1) mmol/L Chloride 104 (98-107) mmol/L Carbon Dioxide 24 (22-30) mmol/L Anion Gap 10.1 (5-15) MEQ/L BUN 10 (9-20) mg/dL Creatinine 0.67 (0.66-1.25) mg/dL Estimated GFR 99.8 ML/MIN Glucose 110 H (74-106) mg/dL Calcium 8.3 L (8.4-10.2) mg/dL Magnesium 2.1 (1.6-2.3) mg/dL Total Bilirubin 0.50 (0.2-1.3) mg/dL AST 31 (17-59) U/L ALT 17 (0-50) U/L Alkaline Phosphatase 53 (38-126) U/L Serum Total Protein 6.4 (6.3-8.2) g/dL Albumin 3.4 L (3.5-5.0) g/dL Medications: Medications Generic Name Dose Route Start Last Admin Trade Name Freq PRN Reason Stop Dose Admin Albuterol Sulfate 2.5 mg 04/06/25 08:18 04/08/25 02:22 Albuterol Sulfate 2.5 Mg/3 Ml Neb 05/06/25 08:17 2.5 mg Q4HPRN PRN Administration SHORTNESS OF BREATH/WHEEZING Albuterol Sulfate 2 puff 04/06/25 08:30 Albuterol Common Canister Inhaler 05/06/25 08:29 Q4H PRN PRN Albuterol/Ipratropium 3 ml 04/06/25 11:00 04/07/25 19:27 Ipratropium/Albuterol Sulfate 3 Ml Ampul.[facility] 05/06/25 10:59 3 ml QIDRT ALYSSA Administration Diazepam 0 mg 04/06/25 08:17 Diazepam 10 Mg/2 Ml Disp.Syringe IV 05/06/25 08:16 Q2H PRN PRN CIWA SCORE Protocol Enoxaparin Sodium 40 mg 04/07/25 12:00 04/07/25 11:39 Enoxaparin Sodium 40 Mg/0.4 Ml Syringe SQ 05/07/25 11:59 40 mg DAILY ALYSSA Administration Potassium Chloride/Dextrose/Sod Cl 1,000 mls @ 90 mls/hr 04/06/25 08:30 04/07/25 17:44 D5w/0.45ns W/ 20meq Kcl 1000 Ml IV 05/06/25 08:29 90 mls/hr .Q11H7M ALYSSA Administration Cefoxitin Sodium 2 gm in 100 mls @ 200 mls/hr 04/06/25 09:00 04/08/25 01:23 Cefoxitin 2 Gm/100 Ml Nacl Ivpb IV 05/06/25 08:59 200 mls/hr Q8H ALYSSA Administration Metronidazole 500 mg in 100 mls @ 200 mls/hr 04/07/25 12:00 04/07/25 23:43 Flagyl 500 Mg Ivpb IV 05/07/25 11:59 200 mls/hr Q6HT ALYSSA Administration Miscellaneous Information 1 each 04/06/25 08:30 Medication Intervention 1 Each Each 05/06/25 08:29 .RT TO CHECK ALYSSA Miscellaneous Information 1 each 04/06/25 13:00 Medication Intervention 1 Each Each MC 05/06/25 12:59 .RT TO CHECK ALYSSA Morphine Sulfate 2 mg 04/06/25 08:12 04/08/25 02:46 Morphine Sulfate 2 Mg/Ml Inj IV 04/11/25 08:11 2 mg Q2H PRN PRN Administration PAIN Nicotine 21 mg 04/06/25 12:30 04/07/25 09:02 Nicotine 21 Mg/Patch Patch TOP 05/06/25 12:29 21 mg Q24H10 ALYSSA Administration Ondansetron HCl 4 mg 04/06/25 08:13 Ondansetron Hcl 4 Mg/2 Ml Vial IV 05/06/25 08:12 Q6H PRN PRN NAUSEA/VOMITING Pantoprazole Sodium 40 mg 04/06/25 10:00 04/07/25 21:27 Pantoprazole 40 Mg Vial IV 05/06/25 09:59 40 mg BID ALYSSA Administration Discontinued Medications Generic Name Dose Route Start Last Admin Trade Name Freq PRN Reason Stop Dose Admin Albuterol/Ipratropium 3 ml 04/06/25 03:34 04/06/25 03:43 Ipratropium/Albuterol Sulfate 3 Ml Ampul.Neb IH 04/06/25 03:35 3 ml STAT ONE Administration Albuterol/Ipratropium Confirm 04/06/25 03:42 Ipratropium/Albuterol Sulfate 3 Ml Ampul.Neb Administered 04/06/25 03:43 Dose 3 ml IH .STK-MED ONE Azithromycin 250 mg 04/06/25 10:00 04/06/25 10:42 Azithromycin 250 Mg Tablet PO 04/09/25 10:01 Not Given DAILY ALYSSA Bupivacaine HCl Confirm 04/06/25 05:06 Bupivacaine Hcl 2.5 Mg/Ml 10 Ml Administered 04/06/25 05:07 Dose 10 ml .ROUTE .STK-MED ONE Methylprednisolone Sodium 0 mg 04/06/25 10:00 04/06/25 10:12 Succinate 20 mg/ Sterile Water IV 05/06/25 09:59 20 mg 1 ml Q12HT ALYSSA Administration Dexamethasone Sodium Phosphate Confirm 04/06/25 04:36 Dexamethasone Sodium Phosphate 4 Mg/Ml Vial Administered 04/06/25 04:37 Dose 8 mg .ROUTE .STK-MED ONE Fentanyl Citrate Confirm 04/06/25 04:35 Fentanyl Citrate 100 Mcg/2 Ml* Vial Administered 04/06/25 04:36 Dose 200 mcg .ROUTE .STK-MED ONE Hydromorphone HCl 1 mg 04/06/25 00:33 04/06/25 00:48 Hydromorphone 1 Mg/1ml Inj IV 04/06/25 00:34 1 mg STAT ONE Administration Hydromorphone HCl Confirm 04/06/25 00:46 Hydromorphone 1 Mg/1ml Inj Administered 04/06/25 00:47 Dose 1 mg .ROUTE .STK-MED ONE Hydromorphone HCl 1 mg 04/06/25 03:21 04/06/25 03:28 Hydromorphone 1 Mg/1ml Inj IV 04/06/25 03:22 1 mg STAT ONE Administration Hydromorphone HCl Confirm 04/06/25 03:26 Hydromorphone 1 Mg/1ml Inj Administered 04/06/25 03:27 Dose 1 mg .ROUTE .STK-MED ONE Sodium Chloride 1,000 mls @ 999 mls/hr 04/06/25 00:33 04/06/25 01:47 Sodium Chloride 0.9% 1000 Ml IV 04/06/25 01:33 Infused .Q1H1M STA Infusion Sodium Chloride Confirm 04/06/25 00:46 Sodium Chloride 0.9% 1000 Ml Administered 04/06/25 00:47 Dose 1,000 mls @ ud .ROUTE .STK-MED ONE Piperacillin Sod/Tazobactam 100 mls @ 200 mls/hr 04/06/25 03:17 04/06/25 03:39 Sod 3.375 gm/ Sodium Chloride IV 04/06/25 03:46 200 mls/hr STAT STA 200 mls/hr Administration Sodium Chloride Confirm 04/06/25 03:32 Sodium Chloride 0.9% Administered 04/06/25 03:33 Dose 100 mls @ ud .ROUTE .STK-MED ONE Sodium Chloride Confirm 04/06/25 03:39 Sodium Chloride 0.9% 1000 Ml Administered 04/06/25 03:40 Dose 1,000 mls @ ud .ROUTE .STK-MED ONE Sodium Chloride 1,000 mls @ 100 mls/hr 04/06/25 03:45 04/06/25 03:40 Sodium Chloride 0.9% 1000 Ml IV 05/06/25 03:44 100 mls/hr .Q10H ALYSSA Administration Acetaminophen Confirm 04/06/25 04:54 Ofirmev Administered 04/06/25 04:55 Dose 100 mls @ ud IV .STK-MED ONE Lactated Ringer's Confirm 04/06/25 05:49 Lactated Ringers Administered 04/06/25 05:50 Dose 1,000 mls @ ud IV .STK-MED ONE Ketamine HCl Confirm 04/06/25 05:11 Ketamine Hcl 50 Mg/Ml Administered 04/06/25 05:12 Dose 50 mg .ROUTE .STK-MED ONE Lidocaine HCl Confirm 04/06/25 04:35 Lidocaine - Mpf 2% 5 Ml Vial Administered 04/06/25 04:36 Dose 10 ml .ROUTE .STK-MED ONE Magnesium Sulfate Confirm 04/06/25 04:54 Magnesium Sulfate Injection Administered 04/06/25 04:55 Dose 1 gm .ROUTE .STK-MED ONE Methylprednisolone 4 mg 04/06/25 08:30 Methylprednisolone 4 Mg Packet PO 05/06/25 08:29 UD [facility] Midazolam HCl Confirm 04/06/25 05:12 Midazolam Hcl 2 Mg/2 Ml Vial Administered 04/06/25 05:13 Dose 2 mg .ROUTE .STK-MED ONE Ondansetron HCl 4 mg 04/06/25 00:35 04/06/25 00:48 Ondansetron Hcl 4 Mg/2 Ml Vial IV 04/06/25 00:36 4 mg STAT ONE Administration Ondansetron HCl Confirm 04/06/25 00:46 Ondansetron Hcl 4 Mg/2 Ml Vial Administered 04/06/25 00:47 Dose 4 mg .ROUTE .STK-MED ONE Ondansetron HCl Confirm 04/06/25 04:35 Ondansetron Hcl 4 Mg/2 Ml Vial Administered 04/06/25 04:36 Dose 8 mg .ROUTE .STK-MED ONE Pantoprazole Sodium 40 mg 04/06/25 10:00 Protonix (Pantoprazole) 40 Mg Tablet PO 05/06/25 09:59 QAM [facility] Piperacillin Sod/Tazobactam Sod Confirm 04/06/25 03:26 Piperacillin/Tazobactam Sodium 3.375 Gm Vial Administered 04/06/25 03:27 Dose 3.375 gm IV .STK-MED ONE Propofol Confirm 04/06/25 04:35 Propofol 200 Mg/20 Ml Vial Administered 04/06/25 04:36 Dose 400 mg IV .STK-MED ONE Rocuronium [place] Confirm 04/06/25 04:35 Rocuronium [place] 50 Mg/5 Ml Vial Administered 04/06/25 04:36 Dose 100 mg IV .STK-MED ONE Sugammadex Sodium Confirm 04/06/25 04:35 Sugammadex Sodium 200 Mg/2 Ml Vial Administered 04/06/25 04:36 Dose 400 mg IV .STK-MED ONE Vasopressin Confirm 04/06/25 04:54 Vasopressin 20 Unit/Ml Ml Administered 04/06/25 04:55 Dose 20 unit .ROUTE .STK-MED ONE Assessment/Plan (1) Perforated gastric ulcer Current Visit: Yes Status: Acute Assessment & Plan: CTA abdomen showing new free intraperitoneal air and focal pyloric wall disc ontinuity with adjacent air, consistent with perforation. POD#2 after Claude patch repair and gastrojejunostomy. NPO with NG to LIS. -(-)BS/BM/flatulence -Up in chair/ambulating today -IVF D5, 1/2NS, KCL Cefoxitin per general surgery. IV morphine for pain control. Continued IV fluids; monitoring CBC/CMP. Close coordination with general surgery; serial abdominal exams. -WBC at 16.2 -LA WNL -Add Flagyl -DC phelan cath 04/08: -WBC downtrending at 11.2 -Continue Cefoxitin/Flagyl -+flatulence (-)BM, +BS x 4 quads -Continue IVF -Continue NG to LIS -Surgery following appreciate recs -CMP reviewed and stable -Dressing changes per surgery -Continue to ambulate, IS, Flutter, Up in chair Code(s): K25.5 - CHRONIC OR UNSPECIFIED GASTRIC ULCER WITH PERFORATION (2) Perforated abdominal viscus Current Visit: Yes Status: Acute Assessment & Plan: CTA findings of pneumoperitoneum involving lesser sac, hepatic surface, and mid-abdomen consistent with hollow viscus perforation. Confirmed intraoperatively. POD#2 postoperative management. Maintain NG decompression, NPO status, and IV antibiotics. Monitor for postoperative complications (leak, abscess, sepsis). Serial labs and abdominal assessments. Code(s): R19.8 - OTH SYMPTOMS AND SIGNS INVOLVING THE DGSTV SYS AND ABDOMEN (3) Abdominal pain Current Visit: Yes Status: Acute Assessment & Plan: Directly related to perforation and peritonitis. Managed through surgical repair. Analgesia with IV morphine due to NPO status. Code(s): R10.9 - UNSPECIFIED ABDOMINAL PAIN (4) Dehydration Current Visit: Yes Status: Acute Assessment & Plan: Elevated anion gap (17.5) and initial lactate elevation consistent with volume depletion - now WNL Responded to IV fluids with lactate improvement from 2.2 - 1.1. Continued hydration with IV fluids and electrolyte monitoring. 04/08: -Resolved, Gap at 10.1, Co2 at 24 -Continue IVF per surgery Code(s): E86.0 - DEHYDRATION (5) COPD (chronic obstructive pulmonary disease) Current Visit: Yes Status: Chronic Assessment & Plan: CTA chest showing stable diffuse emphysema. Initially required BiPAP postop; now on 8 L oxymizer at 90%, baseline 3 L. DuoNebs and continuation of home inhalers Maintain goal oxygen saturation greater than 90%; avoid hyperoxia. (6) Chronic back pain Current Visit: Yes Status: Chronic Assessment & Plan: No routine home regimen documented. IV morphine currently used since NPO. Transition to PO pain meds when allowable. Code(s): M54.9 - DORSALGIA, UNSPECIFIED; G89.29 - OTHER CHRONIC PAIN (7) RLS (restless legs syndrome) Current Visit: Yes Status: Chronic Assessment & Plan: No home medications. Iron studies pending. Symptomatic measures once PO allowed. (8) Lactic acidosis Current Visit: Yes Status: Resolved Assessment & Plan: Initial 2.2 improved to 1.1 with IV fluids. No evidence of sepsis. Continued hydration and monitoring for clinical change. Code(s): E87.20 - ACIDOSIS, UNSPECIFIED (9) AA (alcohol abuse) Current Visit: No Status: Acute Assessment & Plan: History of 6 beers daily; level <10 today. At risk for withdrawal in postoperative period. CIWA monitoring and withdrawal precautions in place. Adequate fluids and supportive care; thiamine as needed. Counseling provided. Code(s): F10.10 - ALCOHOL ABUSE, UNCOMPLICATED (10) Tobacco abuse Current Visit: No Status: Chronic Assessment & Plan: Heavy long-term use (34 PPD). Nicotine patch for withdrawal. Reinforced cessation counseling. VTE: SCDs PPI: Protonix Dispo: 2-5 days pending surgery eval Code status: Full code Plan of care time spent > 40 mins Code(s): K25.5 - CHRONIC OR UNSPECIFIED GASTRIC ULCER WITH PERFORATION (2) Perforated abdominal viscus Current Visit: Yes Status: Acute Code(s): R19.8 - OTH SYMPTOMS AND SIGNS INVOLVING THE DGSTV SYS AND ABDOMEN (3) Abdominal pain Current Visit: Yes Status: Acute Code(s): R10.9 - UNSPECIFIED ABDOMINAL PAIN (4) Dehydration Current Visit: Yes Status: Acute Code(s): E86.0 - DEHYDRATION (5) COPD (chronic obstructive pulmonary disease) Current Visit: Yes Status: Chronic (6) Chronic back pain Current Visit: Yes Status: Chronic Code(s): M54.9 - DORSALGIA, UNSPECIFIED; G89.29 - OTHER CHRONIC PAIN (7) RLS (restless legs syndrome) Current Visit: Yes Status: Chronic (8) Lactic acidosis Current Visit: Yes Status: Resolved Code(s): E87.20 - ACIDOSIS, UNSPECIFIED (9) AA (alcohol abuse) Current Visit: No Status: Acute Code(s): F10.10 - ALCOHOL ABUSE, UNCOMPLICATED (10) Tobacco abuse Current Visit: No Status: Chronic Code(s): Z72.0 - TOBACCO USE
[2025-04-08] MEDS: PATIENT OWN MEDICATION IH SCH ×2 (06:43→19:07)
--- NOTE | 2025-04-08 09:58 | PROG NOTE ---
DATE OF SERVICE: 04/07/2025 SUBJECTIVE: This is a gentleman who presented emergently on Sunday night due to a perforated ulcer. He went to surgery that night, which technically it was early Sunday morning, for a laparotomy. He had a Claude patch and a GJ bypass due to a perforated and obstructing peptic ulcer. Postoperatively, the patient was on BiPAP and he has markedly improved. He is on the floor. He is on significantly less oxygen and has continued to come down on his oxygen requirements all day. He does have chronic lung disease. He states that he is not short of breath. He has no chest pain. He does have some intermittent postop abdominal pain but he has required minimal pain medicine today and overall, he feels that he is doing better. His NG tube put out approximately 300 during the day and at least 100 over this last shift. His blood pressure has been very stable in the 120s to 140s systolic. His heart rate has been mildly tachycardic. It was 100 to 115 throughout the day. However, tonight, he is resting more and his heart rate is 90 currently. He does have alcohol abuse history and he is being seen by the hospitalist for this. He has orders in place. He also is on antibiotics with cephalosporin and Flagyl. His labs are overall stable postop. He has SCDs in place. Lovenox was started today. OBJECTIVE: On abdominal exam, his belly is very soft. He is mildly tender to palpation and very appropriate postop. He has no abdominal distention. I have inspected his wound myself and it looks excellent. Jyothi are in place. There is no erythema or drainage. For the rest of the exam, his NG tube is in place. He has no acute distress. At bedside currently his heart rate is regular. His SCDs are in place. He has no calf tenderness. He has no lower extremity swelling. ASSESSMENT AND PLAN: The patient is postop day 1 status post emergent laparotomy with Claude patch and gastrojejunostomy bypass for peptic ulcer disease. He is mildly tachycardic. I suspect that this is likely due to the alcohol use withdrawal and is being treated by the hospitalist team. The patient is comfortable right now. His heart rate is now in the low 90s. I have discussed with him regarding other things that can increase heart rate such as PE or leak. He does not have any signs that he has one of these issues clinically. His respiratory status has markedly improved. He has absolutely no symptoms. From a surgical standpoint, his abdominal exam is extremely benign. At this point, we will continue our current treatment and we will continue to watch his heart rate. He also had good urine output. His Hall was removed today and he is voiding without issue. He did pass flatus one time today. My plan is to leave the NG tube in place as is and we will reevaluate him tomorrow to determine when to remove the NG tube once he has regained more consistent bowel function and we will reevaluate the output. He also has labs ordered for tomorrow and we will continue to watch his labs. We will keep him on the Lovenox, keep him on the SCDs, and all the current treatment plans that we have discussed above.
[2025-04-08] MEDS ORDERED: ZITHROMAX IV*** 500 MG in Sodium Chloride 0.9% 250 ML 250 ML IV SCH (10:00)
[2025-04-09 05:44] LABS: BASOPHIL % 0.4 % (0.2-1.2); Basophil (Absolute #) 0.04 x10^3/uL (0.01-0.08); Eosinophil (Absolute #) 0.08 x10^3/uL (0.04-0.54); Hematocrit 34.1 % (40.1-51.0); Hemoglobin 10.2 g/dL (13.7-17.5); IMMATURE GRAN # 0.03 x10^3u/L (0.001-0.031); IMMATURE GRAN % 0.3 % (0.001-0.429); Lymphocyte (Absolute #) 0.80 x10^3/uL (1.32-3.57); Mean Corpuscular Hemoglobin 26.7 pg (25.7-32.2); Mean Corpuscular Hgb Concent. 29.9 g/dL (32.3-36.5); Monocyte (Absolute #) 0.80 x10^3/uL (0.30-0.82); NUCLEATED RBC # 0.00 x10^3u/L (0.00-0.012); NUCLEATED RBC % 0.0 % (0.00-0.2); Platelet Count 232 x10^3/uL (163-337); Red Blood Count 3.82 x10^6/uL (4.63-6.08); White Blood Count 9.0 x10^3/uL (4.23-9.07)
[2025-04-09 06:36] LABS: Calcium 9.0 mg/dL (8.4-10.2); Carbon Dioxide 22.0 mmol/L (22-30); Creatinine 1 0.63 mg/dL (0.66-1.25); EST GLOMERULAR FILTRATION RATE 101.7 ML/MIN; Glucose 114.0 mg/dL (74-106); Potassium 3.7 mmol/L (3.5-5.1); SGOT/AST 29.0 U/L (17-59); SGPT/ALT 18.0 U/L (0-50); Total Protein 6.7 g/dL (6.3-8.2)
--- NOTE | 2025-04-09 09:05 | PCM.NOTE ---
Date and Time: 04/09/25 0859 Subjective Assessment: Patient still has some abdominal pain. NG remains in place. No nausea or vomiting. No BM and not passing much gas. Mild dyspnea and cough. No chest pain. - Review of Systems Constitutional: No Fever, No Chills Eyes: No Symptoms Ears, Nose, & Throat: No Symptoms Respiratory: Cough, Short Of Breath Cardiac: No Symptoms, No Chest Pain, No Edema Abdominal/Gastrointestinal: Abdominal Pain, No Nausea, No Vomiting, No Diarrhea Genitourinary Symptoms: No Symptoms Skin: No Symptoms Neurological: No Symptoms Psychological: No Symptoms Endocrine: No Symptoms Hematologic/Lymphatic: No Symptoms Immunological/Allergic: No Symptoms All Other Systems: Reviewed and Negative Objective Exam General Appearance: no apparent distress Neurologic Exam: alert, 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, cooperative Skin Exam: normal color, warm, dry Wound Assessment: Skin/Wound Assessment Wound/Incision Assessment Start: 04/06/25 07:58 Text: Status: Active Freq: Q4H Protocol: Document 04/09/25 07:[address] [facility] (Rec: 04/09/25 07:[address] [facility] [id number]) Wound/Incision Assessment Abdomen Wound Assessment Shift Assessment Wound Type Incision Wound Stage Non Pressure Wound Dressing Status Dry & Intact Drainage Amount None Drainage Odor None/Absent General Appearance Well Approximated,[place] Intact Surrounding Tissue [place] Primary Dressing MEPILEX POST SURGICAL DRESSING Comment New drsg placed 04/08 @ 2300 by this nurse. Same drsg remains C/D/I. 21 [place] remain intact. No obvious signs of infection noted. Wound Photo Photo Taken No Eye Exam: PERRL, EOMI Ears, Nose, Throat Exam: normal ENT inspection Neck Exam: normal inspection, non-tender, supple Lymphatic Exam: No adenopathy Respiratory Exam: rhonchi Cardiovascular Exam: regular rate/rhythm, normal heart sounds Gastrointestinal/Abdomen Exam: tenderness, No normal bowel sounds, No distention Extremity Exam: normal inspection, normal range of motion Back Exam: normal inspection Male Genitalia Exam: deferred Rectal Exam: deferred Objective Data Vital Signs: Vital Signs - 24 hr Temp Pulse Resp BP Pulse Ox 04/09/25 07:45 24 04/09/25 07:37 98.5 F 94 H 16 134/66 91 L 04/09/25 06:47 94 H 20 91 L 04/09/25 04:00 99.0 F 98 H 15 156/74 95 11/27/25 01:11 97 H 18 90 L 04/09/25 00:00 98.7 F 96 H 22 149/72 95 04/08/25 20:00 98.8 F 105 H 34 H 146/73 92 L 04/08/25 19:08 99 H 18 93 L 04/08/25 16:00 97.7 F 102 H 20 172/81 93 L 04/08/25 15:00 88 18 96 04/08/25 12:57 96 H 16 96 04/08/25 12:00 30 H 04/08/25 11:52 98.7 F 100 H 18 158/76 94 L 04/08/25 10:54 94 H 24 92 L 04/08/25 09:07 98 Pain Assessment - Last Documented Pain Intensity [Abdomen] 1 Pain Intensity 0 Pain Scale Used 0-10 Pain Scale Intake and Output: Intake & Output 04/06/25 04/07/25 04/08/25 04/09/25 11:59 11:59 11:59 11:59 Intake Total 4964 1553 2549 Output Total 867 0069 9509 2777 Balance -917 -0601 370 -406 Weight 70 kg Lab Results: Lab Results-Last 24 Hours 04/08/25 04/08/25 04/09/25 Range/Units 15:58 19:47 00:05 WBC (4.23-9.07) x10^3/uL RBC (4.63-6.08) x10^6/uL Hgb (13.7-17.5) g/dL Hct (40.1-51.0) % MCV (79.0-92.2) fL MCH (25.7-32.2) pg MCHC (32.3-36.5) g/dL RDW (11.6-14.4) % Plt Count (163-337) x10^3/uL MPV (9.4-12.4) fL Gran % (34.0-67.9) % Immature Gran % (Auto) (0.001-0.429) % Nucleat RBC Rel Count (0.00-0.2) % Eos # (Auto) (0.04-0.54) x10^3/uL Immature Gran # (Auto) (0.001-0.031) x10^3u/L Absolute Lymphs (auto) (1.32-3.57) x10^3/uL Absolute Monos (auto) (0.30-0.82) x10^3/uL Absolute Nucleated RBC (0.00-0.012) x10^3u/L Lymphocytes % (21.8-53.1) % Monocytes % (5.3-12.2) % Eosinophils % (0.8-7.0) % Basophils % (0.2-1.2) % Absolute Granulocytes (1.78-5.38) x10^3/uL Basophils # (0.01-0.08) x10^3/uL Sodium (135-145) mmol/L Potassium (3.5-5.1) mmol/L Chloride (98-107) mmol/L Carbon Dioxide (22-30) mmol/L Anion Gap (5-15) MEQ/L BUN (9-20) mg/dL Creatinine (0.66-1.25) mg/dL Estimated GFR ML/MIN Glucose (74-106) mg/dL POC Glucometer 104 88 92 (74 to 106) mg/dL Calcium (8.4-10.2) mg/dL Magnesium (1.6-2.3) mg/dL Total Bilirubin (0.2-1.3) mg/dL AST (17-59) U/L ALT (0-50) U/L Alkaline Phosphatase (38-126) U/L Serum Total Protein (6.3-8.2) g/dL Albumin (3.5-5.0) g/dL 04/09/25 04/09/25 04/09/25 Range/Units 04:04 05:22 05:22 WBC 9.0 (4.23-9.07) x10^3/uL RBC 3.82 L (4.63-6.08) x10^6/uL Hgb 10.2 L (13.7-17.5) g/dL Hct 34.1 L (40.1-51.0) % MCV 89.3 (79.0-92.2) fL MCH 26.7 (25.7-32.2) pg MCHC 29.9 L (32.3-36.5) g/dL RDW 17.1 H (11.6-14.4) % Plt Count 232 (163-337) x10^3/uL MPV 9.4 (9.4-12.4) fL Gran % 80.6 H (34.0-67.9) % Immature Gran % (Auto) 0.3 (0.001-0.429) % Nucleat RBC Rel Count 0.0 (0.00-0.2) % Eos # (Auto) 0.08 (0.04-0.54) x10^3/uL Immature Gran # (Auto) 0.03 (0.001-0.031) x10^3u/L Absolute Lymphs (auto) 0.80 L (1.32-3.57) x10^3/uL Absolute Monos (auto) 0.80 (0.30-0.82) x10^3/uL Absolute Nucleated RBC 0.00 (0.00-0.012) x10^3u/L Lymphocytes % 8.9 L (21.8-53.1) % Monocytes % 8.9 (5.3-12.2) % Eosinophils % 0.9 (0.8-7.0) % Basophils % 0.4 (0.2-1.2) % Absolute Granulocytes 7.27 H (1.78-5.38) x10^3/uL Basophils # 0.04 (0.01-0.08) x10^3/uL Sodium 134 L (135-145) mmol/L Potassium 3.7 (3.5-5.1) mmol/L Chloride 102 (98-107) mmol/L Carbon Dioxide 22 (22-30) mmol/L Anion Gap 12.9 (5-15) MEQ/L BUN 8 L (9-20) mg/dL Creatinine 0.63 L (0.66-1.25) mg/dL Estimated GFR 101.7 ML/MIN Glucose 114 H (74-106) mg/dL POC Glucometer 104 (74 to 106) mg/dL Calcium 9.0 (8.4-10.2) mg/dL Magnesium 1.9 (1.6-2.3) mg/dL Total Bilirubin 0.80 (0.2-1.3) mg/dL AST 29 (17-59) U/L ALT 18 (0-50) U/L Alkaline Phosphatase 56 (38-126) U/L Serum Total Protein 6.7 (6.3-8.2) g/dL Albumin 3.6 (3.5-5.0) g/dL 04/09/25 Range/Units 07:24 WBC (4.23-9.07) x10^3/uL RBC (4.63-6.08) x10^6/uL Hgb (13.7-17.5) g/dL Hct (40.1-51.0) % MCV (79.0-92.2) fL MCH (25.7-32.2) pg MCHC (32.3-36.5) g/dL RDW (11.6-14.4) % Plt Count (163-337) x10^3/uL MPV (9.4-12.4) fL Gran % (34.0-67.9) % Immature Gran % (Auto) (0.001-0.429) % Nucleat RBC Rel Count (0.00-0.2) % Eos # (Auto) (0.04-0.54) x10^3/uL Immature Gran # (Auto) (0.001-0.031) x10^3u/L Absolute Lymphs (auto) (1.32-3.57) x10^3/uL Absolute Monos (auto) (0.30-0.82) x10^3/uL Absolute Nucleated RBC (0.00-0.012) x10^3u/L Lymphocytes % (21.8-53.1) % Monocytes % (5.3-12.2) % Eosinophils % (0.8-7.0) % Basophils % (0.2-1.2) % Absolute Granulocytes (1.78-5.38) x10^3/uL Basophils # (0.01-0.08) x10^3/uL Sodium (135-145) mmol/L Potassium (3.5-5.1) mmol/L Chloride (98-107) mmol/L Carbon Dioxide (22-30) mmol/L Anion Gap (5-15) MEQ/L BUN (9-20) mg/dL Creatinine (0.66-1.25) mg/dL Estimated GFR ML/MIN Glucose (74-106) mg/dL POC Glucometer 103 (74 to 106) mg/dL Calcium (8.4-10.2) mg/dL Magnesium (1.6-2.3) mg/dL Total Bilirubin (0.2-1.3) mg/dL AST (17-59) U/L ALT (0-50) U/L Alkaline Phosphatase (38-126) U/L Serum Total Protein (6.3-8.2) g/dL Albumin (3.5-5.0) g/dL Medications: Medications Generic Name Dose Route Start Last Admin Trade Name Freq PRN Reason Stop Dose Admin Albuterol Sulfate 2.5 mg 04/06/25 08:18 04/09/25 01:10 Albuterol Sulfate 2.5 Mg/3 Ml [facility] 05/06/25 08:17 2.5 mg Q4HPRN PRN Administration SHORTNESS OF BREATH/WHEEZING Albuterol Sulfate 2 puff 04/06/25 08:30 Albuterol Common Canister Inhaler 05/06/25 08:29 Q4H PRN PRN Albuterol/Ipratropium 3 ml 04/06/25 11:00 04/09/25 06:45 Ipratropium/Albuterol Sulfate 3 Ml Ampul.Neb 05/06/25 10:59 3 ml QIDRT ALYSSA Administration Diazepam 0 mg 04/06/25 08:17 Diazepam 10 Mg/2 Ml Disp.Syringe IV 05/06/25 08:16 Q2H PRN PRN CIWA SCORE Protocol Enoxaparin Sodium 40 mg 04/07/25 12:00 04/08/25 09:48 Enoxaparin Sodium 40 Mg/0.4 Ml Syringe SQ 05/07/25 11:59 40 mg DAILY ALYSSA Administration Potassium Chloride/Dextrose/Sod Cl 1,000 mls @ 90 mls/hr 04/06/25 08:30 04/09/25 05:55 D5w/0.45ns W/ 20meq Kcl 1000 Ml IV 05/06/25 08:29 90 mls/hr .Q11H7M ALYSSA Administration Cefoxitin Sodium 2 gm in 100 mls @ 200 mls/hr 04/06/25 09:00 04/09/25 00:37 Cefoxitin 2 Gm/100 Ml Nacl Ivpb IV 05/06/25 08:59 200 mls/hr Q8H ALYSSA Administration Metronidazole 500 mg in 100 mls @ 200 mls/hr 04/07/25 12:00 04/09/25 05:55 Flagyl 500 Mg Ivpb IV 05/07/25 11:59 200 mls/hr Q6HT ALYSSA Administration Morphine Sulfate 2 mg 04/06/25 08:12 04/09/25 06:55 Morphine Sulfate 2 Mg/Ml Inj IV 04/11/25 08:11 2 mg Q2H PRN PRN Administration PAIN Nicotine 21 mg 04/06/25 12:30 04/08/25 09:48 Nicotine 21 Mg/Patch Patch TOP 05/06/25 12:29 21 mg Q24H10 ALYSSA Administration Ondansetron HCl 4 mg 04/06/25 08:13 Ondansetron Hcl 4 Mg/2 Ml Vial IV 05/06/25 08:12 Q6H PRN PRN NAUSEA/VOMITING Pantoprazole Sodium 40 mg 04/06/25 10:00 04/08/25 21:28 Pantoprazole 40 Mg Vial IV 05/06/25 09:59 40 mg BID ALYSSA Administration Asmanex Hfa Inhaler 1 each 04/08/25 07:00 04/09/25 06:46 IH 05/08/25 06:59 1 each BIDRT ALYSSA Administration Stiolto Respimat 2 each 04/08/25 19:00 04/08/25 19:07 Inhaler IH 05/08/25 18:59 2 each 1900 ALYSSA Administration Discontinued Medications Generic Name Dose Route Start Last Admin Trade Name Freq PRN Reason Stop Dose Admin Albuterol/Ipratropium 3 ml 04/06/25 03:34 04/06/25 03:43 Ipratropium/Albuterol Sulfate 3 Ml Ampul.Neb IH 04/06/25 03:35 3 ml STAT ONE Administration Albuterol/Ipratropium Confirm 04/06/25 03:42 Ipratropium/Albuterol Sulfate 3 Ml Ampul.Neb Administered 04/06/25 03:43 Dose 3 ml IH .STK-MED ONE Azithromycin 250 mg 04/06/25 10:00 04/06/25 10:42 Azithromycin 250 Mg Tablet PO 04/09/25 10:01 Not Given DAILY ALYSSA Bupivacaine HCl Confirm 04/06/25 05:06 Bupivacaine Hcl 2.5 Mg/Ml 10 Ml Administered 04/06/25 05:07 Dose 10 ml .ROUTE .STK-MED ONE Methylprednisolone Sodium 0 mg 04/06/25 10:00 04/06/25 10:12 Succinate 20 mg/ Sterile Water IV 05/06/25 09:59 20 mg 1 ml Q12HT ALYSSA Administration Dexamethasone Sodium Phosphate Confirm 04/06/25 04:36 Dexamethasone Sodium Phosphate 4 Mg/Ml Vial Administered 04/06/25 04:37 Dose 8 mg .ROUTE .STK-MED ONE Fentanyl Citrate Confirm 04/06/25 04:35 Fentanyl Citrate 100 Mcg/2 Ml* Vial Administered 04/06/25 04:36 Dose 200 mcg .ROUTE .STK-MED ONE Hydromorphone HCl 1 mg 04/06/25 00:33 04/06/25 00:48 Hydromorphone 1 Mg/1ml Inj IV 04/06/25 00:34 1 mg STAT ONE Administration Hydromorphone HCl Confirm 04/06/25 00:46 Hydromorphone 1 Mg/1ml Inj Administered 04/06/25 00:47 Dose 1 mg .ROUTE .STK-MED ONE Hydromorphone HCl 1 mg 04/06/25 03:21 04/06/25 03:28 Hydromorphone 1 Mg/1ml Inj IV 04/06/25 03:22 1 mg STAT ONE Administration Hydromorphone HCl Confirm 04/06/25 03:26 Hydromorphone 1 Mg/1ml Inj Administered 04/06/25 03:27 Dose 1 mg .ROUTE .STK-MED ONE Sodium Chloride 1,000 mls @ 999 mls/hr 04/06/25 00:33 04/06/25 01:47 Sodium Chloride 0.9% 1000 Ml IV 04/06/25 01:33 Infused .Q1H1M STA Infusion Sodium Chloride Confirm 04/06/25 00:46 Sodium Chloride 0.9% 1000 Ml Administered 04/06/25 00:47 Dose 1,000 mls @ ud .ROUTE .STK-MED ONE Piperacillin Sod/Tazobactam 100 mls @ 200 mls/hr 04/06/25 03:17 04/06/25 03:39 Sod 3.375 gm/ Sodium Chloride IV 04/06/25 03:46 200 mls/hr STAT STA 200 mls/hr Administration Sodium Chloride Confirm 04/06/25 03:32 Sodium Chloride 0.9% Administered 04/06/25 03:33 Dose 100 mls @ ud .ROUTE .STK-MED ONE Sodium Chloride Confirm 04/06/25 03:39 Sodium Chloride 0.9% 1000 Ml Administered 04/06/25 03:40 Dose 1,000 mls @ ud .ROUTE .STK-MED ONE Sodium Chloride 1,000 mls @ 100 mls/hr 04/06/25 03:45 04/06/25 03:40 Sodium Chloride 0.9% 1000 Ml IV 05/06/25 03:44 100 mls/hr .Q10H ALYSSA Administration Acetaminophen Confirm 04/06/25 04:54 Ofirmev Administered 04/06/25 04:55 Dose 100 mls @ ud IV .STK-MED ONE Lactated Ringer's Confirm 04/06/25 05:49 Lactated Ringers Administered 04/06/25 05:50 Dose 1,000 mls @ ud IV .STK-MED ONE Ketamine HCl Confirm 04/06/25 05:11 Ketamine Hcl 50 Mg/Ml Administered 04/06/25 05:12 Dose 50 mg .ROUTE .STK-MED ONE Lidocaine HCl Confirm 04/06/25 04:35 Lidocaine - Mpf 2% 5 Ml Vial Administered 04/06/25 04:36 Dose 10 ml .ROUTE .STK-MED ONE Magnesium Sulfate Confirm 04/06/25 04:54 Magnesium Sulfate Injection Administered 04/06/25 04:55 Dose 1 gm .ROUTE .STK-MED ONE Methylprednisolone 4 mg 04/06/25 08:30 Methylprednisolone 4 Mg Packet PO 05/06/25 08:29 ALYSSA Midazolam HCl Confirm 04/06/25 05:12 Midazolam Hcl 2 Mg/2 Ml Vial Administered 04/06/25 05:13 Dose 2 mg .ROUTE .STK-MED ONE Miscellaneous Information 1 each 04/06/25 08:30 Medication Intervention 1 Each Each 05/06/25 08:29 .RT TO CHECK ALYSSA Miscellaneous Information 1 each 04/06/25 13:00 Medication Intervention 1 Each Each 05/06/25 12:59 .RT TO CHECK ALYSSA Ondansetron HCl 4 mg 04/06/25 00:35 04/06/25 00:48 Ondansetron Hcl 4 Mg/2 Ml Vial IV 04/06/25 00:36 4 mg STAT ONE Administration Ondansetron HCl Confirm 04/06/25 00:46 Ondansetron Hcl 4 Mg/2 Ml Vial Administered 04/06/25 00:47 Dose 4 mg .ROUTE .STK-MED ONE Ondansetron HCl Confirm 04/06/25 04:35 Ondansetron Hcl 4 Mg/2 Ml Vial Administered 04/06/25 04:36 Dose 8 mg .ROUTE .STK-MED ONE Pantoprazole Sodium 40 mg 04/06/25 10:00 Protonix (Pantoprazole) 40 Mg Tablet PO 05/06/25 09:59 QAM ALYSSA Piperacillin Sod/Tazobactam Sod Confirm 04/06/25 03:26 Piperacillin/Tazobactam Sodium 3.375 Gm Vial Administered 04/06/25 03:27 Dose 3.375 gm IV .STK-MED ONE Propofol Confirm 04/06/25 04:35 Propofol 200 Mg/20 Ml Vial Administered 04/06/25 04:36 Dose 400 mg IV .STK-MED ONE Rocuronium Ailey Confirm 04/06/25 04:35 Rocuronium [place] 50 Mg/5 Ml Vial Administered 04/06/25 04:36 Dose 100 mg IV .STK-MED ONE Sugammadex Sodium Confirm 04/06/25 04:35 Sugammadex Sodium 200 Mg/2 Ml Vial Administered 04/06/25 04:36 Dose 400 mg IV .STK-MED ONE Vasopressin Confirm 04/06/25 04:54 Vasopressin 20 Unit/Ml Ml Administered 04/06/25 04:55 Dose 20 unit .ROUTE .STK-MED ONE Multi-Disciplinary Progress Notes: Multi-Disciplinary Progress Notes 04/08/25 12:55 Case Management Note by Samira Chatman REFERRAL WAS SENT TO [facility]. THEY HAVE RECEIVED IT BUT HAVE NOT ACCEPTED YET. THEY DON'T ANTICIPATE ANY ISSUES BUT WILL CALL [employer] ADMINISTRATOR BACK AFTER REVIEW. THEY WILL NEED NOTIFIED AT TIME OF DC AT [phone]. THEY WILL NEED FAXED THE DC INSTRUCTIONS, DC MED LIST AND DC SUMMARY TO [phone] Initialized on 04/08/25 12:55 - END OF NOTE 04/08/25 10:40 (created 04/08/25 12:50) Case Management Note by Samira Chatman PATIENT HAS WALKED WELL IN THE HALLWAYS WITH NURSING. S/W PATIENT ABOUT PLANS AT NE- I ANTICIPATE PATIENT BEING ABLE TO RETURN HOME WITH [facility] AT TIME OF DC. PATIENT IS AGREEABLE TO [facility]. HE REPORTS HIS DAUGHTER IN LAW WORKS FOR [employer] [facility]. REFERRAL SENT TO THEM. PATIENT ALREADY HAS 24HR OXYGEN AT HOME WITH PORTABILITY AT 3L. PATIENT WILL LIKELY NEED SENT HOME WITH A COUPLE OF DAYS OF SUPPLIES FOR DRESSING CHANGES IF NEEDED UNTIL [facility] CAN GET IN. AT THIS TIME HE DENIES ANY OTHER NEEDS- HE WAS NOTIFIED TO LET NURSING KNOW IF HE FEELS HE NEEDS A REHABS STAY ONCE HE GETS CLOSER TO NEING HOME. HE VERIFIED UNDERSTANDING. Initialized on 04/08/25 12:50 - END OF NOTE Assessment/Plan (1) Abdominal pain Current Visit: Yes Status: Acute Assessment & Plan: (1) Perforated gastric ulcer Current Visit: Yes Status: Acute Assessment & Plan: CTA abdomen on admission showed intraperitoneal air and focal pyloric wall discontinuity with adjacent air, consistent with perforation. POD#3 after Claude patch repair and gastrojejunostomy. NPO with NG to LIS. -Up in chair/ambulating - Continue IV fluids Cefoxitin per general surgery. IV morphine for pain control. Close coordination with general surgery; serial abdominal exams. -WBC normal -LA WNL -Add Flagyl -DC phelan cath 04/09: -WBC normal -Continue Cefoxitin/Flagyl -Not much gas past 24 hours -Continue IVF -Continue NG to LIS -Surgery following appreciate recs -CMP reviewed and stable -Dressing changes per surgery -Continue to ambulate, IS, Flutter, Up in chair Code(s): K25.5 - CHRONIC OR UNSPECIFIED GASTRIC ULCER WITH PERFORATION (2) Perforated abdominal viscus Current Visit: Yes Status: Acute Assessment & Plan: CTA findings of pneumoperitoneum involving lesser sac, hepatic surface, and mid-abdomen consistent with hollow viscus perforation. Confirmed intraoperatively. POD#3 postoperative management. Maintain NG decompression, NPO status, and IV antibiotics. Monitor for postoperative complications (leak, abscess, sepsis). Serial labs and abdominal assessments. Code(s): R19.8 - OTH SYMPTOMS AND SIGNS INVOLVING THE DGSTV SYS AND ABDOMEN (3) Abdominal pain Current Visit: Yes Status: Acute Assessment & Plan: Directly related to perforation and peritonitis. Managed through surgical repair. Analgesia with IV morphine due to NPO status. Code(s): R10.9 - UNSPECIFIED ABDOMINAL PAIN (4) Dehydration Current Visit: Yes Status: Acute Assessment & Plan: -Resolved Code(s): E86.0 - DEHYDRATION (5) COPD (chronic obstructive pulmonary disease) Current Visit: Yes Status: Chronic Assessment & Plan: CTA chest showing stable diffuse emphysema. Oxygenation improved DuoNebs and continuation of home inhalers Maintain goal oxygen saturation greater than 90%; avoid hyperoxia. (6) Chronic back pain Current Visit: Yes Status: Chronic Assessment & Plan: No routine home regimen documented. IV morphine currently used since NPO. Transition to PO pain meds when allowable. Code(s): M54.9 - DORSALGIA, UNSPECIFIED; G89.29 - OTHER CHRONIC PAIN (7) RLS (restless legs syndrome) Current Visit: Yes Status: Chronic Assessment & Plan: No home medications. Iron studies pending. Symptomatic measures once PO allowed. (8) Lactic acidosis Current Visit: Yes Status: Resolved Assessment & Plan: -Resolved Code(s): E87.20 - ACIDOSIS, UNSPECIFIED (9) AA (alcohol abuse) Current Visit: No Status: Acute Assessment & Plan: History of 6 beers daily; level <10 today. At risk for withdrawal in postoperative period. CIWA monitoring and withdrawal precautions in place. Adequate fluids and supportive care; thiamine as needed. Counseling provided. Code(s): F10.10 - ALCOHOL ABUSE, UNCOMPLICATED (10) Tobacco abuse Current Visit: No Status: Chronic Assessment & Plan: Heavy long-term use (34 PPD). Nicotine patch for withdrawal. Reinforced cessation counseling. VTE: SCDs PPI: Protonix Dispo: 2-5 days pending surgery eval Code status: Full code Plan of care time spent > 40 mins Code(s): K25.5 - CHRONIC OR UNSPECIFIED GASTRIC ULCER WITH PERFORATION (2) Perforated abdominal viscus Current Visit: Yes Status: Acute Code(s): R19.8 - OTH SYMPTOMS AND SIGNS INVOLVING THE DGSTV SYS AND ABDOMEN (3) Abdominal pain Current Visit: Yes Status: Acute Code(s): R10.9 - UNSPECIFIED ABDOMINAL PAIN (4) Dehydration Current Visit: Yes Status: Acute Code(s): E86.0 - DEHYDRATION (5) COPD (chronic obstructive pulmonary disease) Current Visit: Yes Status: Chronic (6) Chronic back pain Current Visit: Yes Status: Chronic Code(s): M54.9 - DORSALGIA, UNSPECIFIED; G89.29 - OTHER CHRONIC PAIN (7) RLS (restless legs syndrome) Current Visit: Yes Status: Chronic (8) Lactic acidosis Current Visit: Yes Status: Resolved Code(s): E87.20 - ACIDOSIS, UNSPECIFIED (9) AA (alcohol abuse) Current Visit: No Status: Acute Code(s): F10.10 - ALCOHOL ABUSE, UNCOMPLICATED (10) Tobacco abuse Current Visit: No Status: Chronic Code(s): Z72.0 - TOBACCO USE Code(s): R10.9 - UNSPECIFIED ABDOMINAL PAIN (2) Perforated gastric ulcer Current Visit: Yes Status: Acute Code(s): K25.5 - CHRONIC OR UNSPECIFIED GASTRIC ULCER WITH PERFORATION Telemedicine Encounter - Telemedicine Encounter Telemedicine Encounter: "The entirety of this encounter was performed via Telemedicine" This visit was performed using real-time audio and video connection between my location and thepatients locationwith the assistance of a surrogateat the patients location. Written or verbal consent was obtained from the patient/guardian to perform this visit usingsynchrkaiser [email or web address]. Any patient questions regarding the telemedicine interaction were answered.
[2025-04-09] MEDS: Dulcolax 10 MG SUPP PR ONE ×2 (14:58→18:01)
[2025-04-10 04:19] LABS: BASOPHIL % 0.3 % (0.2-1.2); Basophil (Absolute #) 0.03 x10^3/uL (0.01-0.08); Eosinophil (Absolute #) 0.07 x10^3/uL (0.04-0.54); Hematocrit 35.6 % (40.1-51.0); Hemoglobin 10.8 g/dL (13.7-17.5); IMMATURE GRAN # 0.05 x10^3u/L (0.001-0.031); IMMATURE GRAN % 0.5 % (0.001-0.429); Lymphocyte (Absolute #) 0.99 x10^3/uL (1.32-3.57); Mean Corpuscular Hemoglobin 26.3 pg (25.7-32.2); Mean Corpuscular Hgb Concent. 30.3 g/dL (32.3-36.5); Monocyte (Absolute #) 1.05 x10^3/uL (0.30-0.82); NUCLEATED RBC # 0.00 x10^3u/L (0.00-0.012); NUCLEATED RBC % 0.0 % (0.00-0.2); Platelet Count 237 x10^3/uL (163-337); Red Blood Count 4.10 x10^6/uL (4.63-6.08); White Blood Count 10.1 x10^3/uL (4.23-9.07)
[2025-04-10 04:20] LABS: VBG BASE EXCESS -0.8 (-2.0-2.0); VBG CARBOXYHEMOGLOBIN 3.2 % T HGB (0.0-6.9); VBG FIO2 21.0 %; VBG HCO3- 23.4 meq/L (22-28); VBG HEMOGLOBIN 11.4; VBG O2 SATURATION 70.4 (95-100); VBG PCO2 36.0 mm/Hg (42-55); VBG PO2 39.0 mm/Hg (25-40); VBG POTASSIUM 3.6 (3.5-5.1)
[2025-04-10 04:33] LABS: Calcium 9.1 mg/dL (8.4-10.2); Carbon Dioxide 22.0 mmol/L (22-30); Creatinine 1 0.64 mg/dL (0.66-1.25); EST GLOMERULAR FILTRATION RATE 101.2 ML/MIN; Glucose 116.0 mg/dL (74-106); Potassium 3.6 mmol/L (3.5-5.1); SGOT/AST 28.0 U/L (17-59); SGPT/ALT 19.0 U/L (0-50); Total Protein 7.0 g/dL (6.3-8.2)
--- NOTE | 2025-04-10 05:59 | PCM.NOTE ---
Date and Time: 04/10/25 0558 Subjective Assessment: Mr. Patel is a 69 year old male with a pmhx of COPD, emphysema, restless leg syndrome, chronic back pain, heavy alcohol use (approximately six beers daily), and heavy tobacco use (three to four packs per day), who presented to the ED on 04/05/25 with abrupt epigastric pain that woke him from sleep, rated 10/10. He denied vomiting, diarrhea, or chest pain, and endorsed only baseline dyspnea. On arrival he was tachycardic and tachypneic but maintained his usual oxygen requirement. Initial labs revealed leukocytosis at 14.3, stable hemoglobin at 12.4, normal lactic acid of 1.1 after an initial elevated value of 2.2 in the ED, and a mildly elevated anion gap of 17.5 suggestive of dehydration. CTA abdomen demonstrated new free intraperitoneal air adjacent to the hepatic surface, within the lesser sac, and throughout the mid-abdomen, strongly suggestive of a hollow viscus perforation. A focal discontinuity in the pyloric wall with an adjacent air pocket indicated a likely perforated gastric ulcer. Mild mucosal edema in the right lower-quadrant ileal loops with mesenteric congestion suggested an element of enteritis. A stable sliding hiatal hernia, diffuse atherosclerotic calcifications without aneurysm or stenosis, and a stable metallic clip at the pancreatic head were also noted. CTA chest showed stable emphysematous changes without pulmonary embolism and mild ascites. Given these findings, the patient was taken emergently to the operating room where general surgery performed a Claude patch repair of a perforated gastric ulcer with associated pyloric obstruction and completed a gastrojejunostomy. Postoperatively, he has a midline abdominal incision, NG tube to low intermittent suction, and initially required 100% BiPAP, later successfully weaned to 4 L NC at 93%, which approximates his baseline. He remains NPO and is receiving IV fluids as well as IV morphine for pain control. Cefoxitin was initiated per surgical recommendation. His alcohol level on the morning after surgery was <10, consistent with clearance; withdrawal precautions remain in place. Family was updated extensively regarding surgery and postoperative expectations. 04/10/25: Patient was seen at the bedside this morning. Overnight, nursing reported episodes of worsening dyspnea and increased abdominal discomfort. On exam today, the patient remains on high-flow nasal cannula at 40 L/min with FiO2 75% and continues to require this level of support. CTA of the chest obtained overnight demonstrated multifocal pneumonia without evidence of pulmonary embolism. The patient had a bowel movement this morning with subsequent improvement in abdominal pain. General Surgery remains actively involved and is evaluating the need for endoscopic assessment; scopes are being considered pending their assessment today. Given concern for hospital-acquired pneumonia, antimicrobial therapy was broadened with the addition of vancomycin and Zosyn. Will continue to monitor respiratory status, oxygen requirements, abdominal pain, and response to treatment closely. - Review of Systems Constitutional: No Symptoms Eyes: No Symptoms Ears, Nose, & Throat: No Symptoms Respiratory: Cough, Short Of Breath Cardiac: No Symptoms Abdominal/Gastrointestinal: Abdominal Pain Genitourinary Symptoms: No Symptoms Musculoskeletal: No Symptoms Skin: No Symptoms Neurological: No Symptoms Psychological: No Symptoms Endocrine: No Symptoms Hematologic/Lymphatic: No Symptoms Immunological/Allergic: No Symptoms Objective Exam General Appearance: no apparent distress Neurologic Exam: alert, 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, cooperative Skin Exam: pale Wound Assessment: Skin/Wound Assessment Wound/Incision Assessment Start: 04/06/25 07:58 Text: Status: Active Freq: Q4H Protocol: Document 04/10/25 04:00 KD (Rec: 04/10/25 04:23 KD [id number]) Wound/Incision Assessment Abdomen Wound Assessment Shift Assessment Wound Type Incision Wound Stage Non Pressure Wound Dressing Status Dry & Intact Drainage Amount None Drainage Odor None/Absent Primary Dressing MEPILEX POST SURGICAL 4x10 DRESSING Comment dressing not removed to assess wound at this time, dressing remains CDI. Wound Photo Photo Taken No Eye Exam: PERRL Ears, Nose, Throat Exam: normal ENT inspection Neck Exam: normal inspection Respiratory Exam: diminished breath sounds, crackles/rales Cardiovascular Exam: regular rate/rhythm, normal heart sounds Gastrointestinal/Abdomen Exam: soft, tenderness (incision site), other (BS hypoactive x 4 quads) Extremity Exam: normal inspection, normal range of motion Back Exam: normal inspection Male Genitalia Exam: deferred Rectal Exam: deferred Objective Data Vital Signs: Vital Signs - 24 hr Temp Pulse Resp BP Pulse Ox 04/10/25 04:00 99.5 F 112 H 23 125/63 90 L 04/10/25 03:44 111 H 26 H 92 L 04/10/25 00:00 99.0 F 114 H 31 H 137/73 93 L 04/09/25 22:35 101 H 24 95 04/09/25 20:00 16 04/09/25 19:56 100.2 F 102 H 16 168/83 95 04/09/25 18:33 105 H 24 95 04/09/25 16:00 98.9 F 113 H 16 167/83 95 04/09/25 14:00 111 H 28 H 83 L 04/09/25 12:00 99.0 F 104 H 16 164/76 94 L 04/09/25 10:55 92 H 26 H 96 04/09/25 08:55 97 H 24 92 L 04/09/25 07:45 24 04/09/25 07:37 98.5 F 94 H 16 134/66 91 L 04/09/25 06:47 94 H 20 91 L Pain Assessment - Last Documented Pain Intensity [Abdomen] 1 Pain Intensity 2 Pain Scale Used 0-10 Pain Scale Intake and Output: Intake & Output 04/07/25 04/08/25 04/09/25 04/10/25 11:59 11:59 11:59 11:59 Intake Total 2098 2603 2549 2548 Output Total 0540 1850 2900 1800 Balance -3704 943 -366 748 Weight 70 kg Lab Results: Lab Results-Last 24 Hours 04/09/25 04/09/25 04/09/25 Range/Units 05:22 05:22 07:24 WBC 9.0 (4.23-9.07) x10^3/uL RBC 3.82 L (4.63-6.08) x10^6/uL Hgb 10.2 L (13.7-17.5) g/dL Hct 34.1 L (40.1-51.0) % MCV 89.3 (79.0-92.2) fL MCH 26.7 (25.7-32.2) pg MCHC 29.9 L (32.3-36.5) g/dL RDW 17.1 H (11.6-14.4) % Plt Count 232 (163-337) x10^3/uL MPV 9.4 (9.4-12.4) fL Gran % 80.6 H (34.0-67.9) % Immature Gran % (Auto) 0.3 (0.001-0.429) % Nucleat RBC Rel Count 0.0 (0.00-0.2) % Eos # (Auto) 0.08 (0.04-0.54) x10^3/uL Immature Gran # (Auto) 0.03 (0.001-0.031) x10^3u/L Absolute Lymphs (auto) 0.80 L (1.32-3.57) x10^3/uL Absolute Monos (auto) 0.80 (0.30-0.82) x10^3/uL Absolute Nucleated RBC 0.00 (0.00-0.012) x10^3u/L Lymphocytes % 8.9 L (21.8-53.1) % Monocytes % 8.9 (5.3-12.2) % Eosinophils % 0.9 (0.8-7.0) % Basophils % 0.4 (0.2-1.2) % Absolute Granulocytes 7.27 H (1.78-5.38) x10^3/uL Basophils # 0.04 (0.01-0.08) x10^3/uL D-Dimer (0.0-0.50) mg/L pO2/FiO2 Ratio % VBG pH (7.32-7.42) VBG pCO2 at Pat Temp (42-55) mm/Hg VBG pO2 at Pat Temp (25-40) mm/Hg VBG HCO3 (22-28) meq/L VBG O2 Sat (Camilo) (95-100) VBG Base Excess (-2.0-2.0) VBG Hemoglobin VBG Carboxyhemoglobin (0.0-6.9) % T HGB POC Potassium (3.5-5.1) Sodium 134 L (135-145) mmol/L Potassium 3.7 (3.5-5.1) mmol/L Chloride 102 (98-107) mmol/L Carbon Dioxide 22 (22-30) mmol/L Anion Gap 12.9 (5-15) MEQ/L BUN 8 L (9-20) mg/dL Creatinine 0.63 L (0.66-1.25) mg/dL Estimated GFR 101.7 ML/MIN Glucose 114 H (74-106) mg/dL POC Glucometer 103 (74 to 106) mg/dL Lactic Acid (0.4-2.0) Calcium 9.0 (8.4-10.2) mg/dL Magnesium 1.9 (1.6-2.3) mg/dL Total Bilirubin 0.80 (0.2-1.3) mg/dL AST 29 (17-59) U/L ALT 18 (0-50) U/L Alkaline Phosphatase 56 (38-126) U/L Serum Total Protein 6.7 (6.3-8.2) g/dL Albumin 3.6 (3.5-5.0) g/dL 04/09/25 04/09/25 04/09/25 Range/Units 11:53 16:24 19:47 WBC (4.23-9.07) x10^3/uL RBC (4.63-6.08) x10^6/uL Hgb (13.7-17.5) g/dL Hct (40.1-51.0) % MCV (79.0-92.2) fL MCH (25.7-32.2) pg MCHC (32.3-36.5) g/dL RDW (11.6-14.4) % Plt Count (163-337) x10^3/uL MPV (9.4-12.4) fL Gran % (34.0-67.9) % Immature Gran % (Auto) (0.001-0.429) % Nucleat RBC Rel Count (0.00-0.2) % Eos # (Auto) (0.04-0.54) x10^3/uL Immature Gran # (Auto) (0.001-0.031) x10^3u/L Absolute Lymphs (auto) (1.32-3.57) x10^3/uL Absolute Monos (auto) (0.30-0.82) x10^3/uL Absolute Nucleated RBC (0.00-0.012) x10^3u/L Lymphocytes % (21.8-53.1) % Monocytes % (5.3-12.2) % Eosinophils % (0.8-7.0) % Basophils % (0.2-1.2) % Absolute Granulocytes (1.78-5.38) x10^3/uL Basophils # (0.01-0.08) x10^3/uL D-Dimer (0.0-0.50) mg/L pO2/FiO2 Ratio % VBG pH (7.32-7.42) VBG pCO2 at Pat Temp (42-55) mm/Hg VBG pO2 at Pat Temp (25-40) mm/Hg VBG HCO3 (22-28) meq/L VBG O2 Sat (Camilo) (95-100) VBG Base Excess (-2.0-2.0) VBG Hemoglobin VBG Carboxyhemoglobin (0.0-6.9) % T HGB POC Potassium (3.5-5.1) Sodium (135-145) mmol/L Potassium (3.5-5.1) mmol/L Chloride (98-107) mmol/L Carbon Dioxide (22-30) mmol/L Anion Gap (5-15) MEQ/L BUN (9-20) mg/dL Creatinine (0.66-1.25) mg/dL Estimated GFR ML/MIN Glucose (74-106) mg/dL POC Glucometer 97 101 100 (74 to 106) mg/dL Lactic Acid (0.4-2.0) Calcium (8.4-10.2) mg/dL Magnesium (1.6-2.3) mg/dL Total Bilirubin (0.2-1.3) mg/dL AST (17-59) U/L ALT (0-50) U/L Alkaline Phosphatase (38-126) U/L Serum Total Protein (6.3-8.2) g/dL Albumin (3.5-5.0) g/dL 04/09/25 04/10/25 04/10/25 Range/Units 23:43 03:45 04:10 WBC (4.23-9.07) x10^3/uL RBC (4.63-6.08) x10^6/uL Hgb (13.7-17.5) g/dL Hct (40.1-51.0) % MCV (79.0-92.2) fL MCH (25.7-32.2) pg MCHC (32.3-36.5) g/dL RDW (11.6-14.4) % Plt Count (163-337) x10^3/uL MPV (9.4-12.4) fL Gran % (34.0-67.9) % Immature Gran % (Auto) (0.001-0.429) % Nucleat RBC Rel Count (0.00-0.2) % Eos # (Auto) (0.04-0.54) x10^3/uL Immature Gran # (Auto) (0.001-0.031) x10^3u/L Absolute Lymphs (auto) (1.32-3.57) x10^3/uL Absolute Monos (auto) (0.30-0.82) x10^3/uL Absolute Nucleated RBC (0.00-0.012) x10^3u/L Lymphocytes % (21.8-53.1) % Monocytes % (5.3-12.2) % Eosinophils % (0.8-7.0) % Basophils % (0.2-1.2) % Absolute Granulocytes (1.78-5.38) x10^3/uL Basophils # (0.01-0.08) x10^3/uL D-Dimer (0.0-0.50) mg/L pO2/FiO2 Ratio 21.0 % VBG pH 7.42 (7.32-7.42) VBG pCO2 at Pat Temp 36 L (42-55) mm/Hg VBG pO2 at Pat Temp 39 (25-40) mm/Hg VBG HCO3 23.4 (22-28) meq/L VBG O2 Sat (Camilo) 70.4 L (95-100) VBG Base Excess -0.8 (-2.0-2.0) VBG Hemoglobin 11.4 VBG Carboxyhemoglobin 3.2 (0.0-6.9) % T HGB POC Potassium 3.6 (3.5-5.1) Sodium (135-145) mmol/L Potassium (3.5-5.1) mmol/L Chloride (98-107) mmol/L Carbon Dioxide (22-30) mmol/L Anion Gap (5-15) MEQ/L BUN (9-20) mg/dL Creatinine (0.66-1.25) mg/dL Estimated GFR ML/MIN Glucose (74-106) mg/dL POC Glucometer 112 H 110 H (74 to 106) mg/dL Lactic Acid (0.4-2.0) Calcium (8.4-10.2) mg/dL Magnesium (1.6-2.3) mg/dL Total Bilirubin (0.2-1.3) mg/dL AST (17-59) U/L ALT (0-50) U/L Alkaline Phosphatase (38-126) U/L Serum Total Protein (6.3-8.2) g/dL Albumin (3.5-5.0) g/dL 04/10/25 04/10/25 04/10/25 Range/Units 04:10 04:15 04:15 WBC 10.1 H (4.23-9.07) x10^3/uL RBC 4.10 L (4.63-6.08) x10^6/uL Hgb 10.8 L (13.7-17.5) g/dL Hct 35.6 L (40.1-51.0) % MCV 86.8 (79.0-92.2) fL MCH 26.3 (25.7-32.2) pg MCHC 30.3 L (32.3-36.5) g/dL RDW 16.7 H (11.6-14.4) % Plt Count 237 (163-337) x10^3/uL MPV 8.9 L (9.4-12.4) fL Gran % 78.3 H (34.0-67.9) % Immature Gran % (Auto) 0.5 H (0.001-0.429) % Nucleat RBC Rel Count 0.0 (0.00-0.2) % Eos # (Auto) 0.07 (0.04-0.54) x10^3/uL Immature Gran # (Auto) 0.05 H (0.001-0.031) x10^3u/L Absolute Lymphs (auto) 0.99 L (1.32-3.57) x10^3/uL Absolute Monos (auto) 1.05 H (0.30-0.82) x10^3/uL Absolute Nucleated RBC 0.00 (0.00-0.012) x10^3u/L Lymphocytes % 9.8 L (21.8-53.1) % Monocytes % 10.4 (5.3-12.2) % Eosinophils % 0.7 L (0.8-7.0) % Basophils % 0.3 (0.2-1.2) % Absolute Granulocytes 7.88 H (1.78-5.38) x10^3/uL Basophils # 0.03 (0.01-0.08) x10^3/uL D-Dimer (0.0-0.50) mg/L pO2/FiO2 Ratio % VBG pH (7.32-7.42) VBG pCO2 at Pat Temp (42-55) mm/Hg VBG pO2 at Pat Temp (25-40) mm/Hg VBG HCO3 (22-28) meq/L VBG O2 Sat (Camilo) (95-100) VBG Base Excess (-2.0-2.0) VBG Hemoglobin VBG Carboxyhemoglobin (0.0-6.9) % T HGB POC Potassium (3.5-5.1) Sodium 133 L (135-145) mmol/L Potassium 3.6 (3.5-5.1) mmol/L Chloride 103 (98-107) mmol/L Carbon Dioxide 22 (22-30) mmol/L Anion Gap 12.4 (5-15) MEQ/L BUN 8 L (9-20) mg/dL Creatinine 0.64 L (0.66-1.25) mg/dL Estimated GFR 101.2 ML/MIN Glucose 116 H (74-106) mg/dL POC Glucometer (74 to 106) mg/dL Lactic Acid 0.9 (0.4-2.0) Calcium 9.1 (8.4-10.2) mg/dL Magnesium 1.7 (1.6-2.3) mg/dL Total Bilirubin 0.80 (0.2-1.3) mg/dL AST 28 (17-59) U/L ALT 19 (0-50) U/L Alkaline Phosphatase 57 (38-126) U/L Serum Total Protein 7.0 (6.3-8.2) g/dL Albumin 3.7 (3.5-5.0) g/dL 04/10/25 Range/Units 04:15 WBC (4.23-9.07) x10^3/uL RBC (4.63-6.08) x10^6/uL Hgb (13.7-17.5) g/dL Hct (40.1-51.0) % MCV (79.0-92.2) fL MCH (25.7-32.2) pg MCHC (32.3-36.5) g/dL RDW (11.6-14.4) % Plt Count (163-337) x10^3/uL MPV (9.4-12.4) fL Gran % (34.0-67.9) % Immature Gran % (Auto) (0.001-0.429) % Nucleat RBC Rel Count (0.00-0.2) % Eos # (Auto) (0.04-0.54) x10^3/uL Immature Gran # (Auto) (0.001-0.031) x10^3u/L Absolute Lymphs (auto) (1.32-3.57) x10^3/uL Absolute Monos (auto) (0.30-0.82) x10^3/uL Absolute Nucleated RBC (0.00-0.012) x10^3u/L Lymphocytes % (21.8-53.1) % Monocytes % (5.3-12.2) % Eosinophils % (0.8-7.0) % Basophils % (0.2-1.2) % Absolute Granulocytes (1.78-5.38) x10^3/uL Basophils # (0.01-0.08) x10^3/uL D-Dimer 4.52 H* (0.0-0.50) mg/L pO2/FiO2 Ratio % VBG pH (7.32-7.42) VBG pCO2 at Pat Temp (42-55) mm/Hg VBG pO2 at Pat Temp (25-40) mm/Hg VBG HCO3 (22-28) meq/L VBG O2 Sat (Camilo) (95-100) VBG Base Excess (-2.0-2.0) VBG Hemoglobin VBG Carboxyhemoglobin (0.0-6.9) % T HGB POC Potassium (3.5-5.1) Sodium (135-145) mmol/L Potassium (3.5-5.1) mmol/L Chloride (98-107) mmol/L Carbon Dioxide (22-30) mmol/L Anion Gap (5-15) MEQ/L BUN (9-20) mg/dL Creatinine (0.66-1.25) mg/dL Estimated GFR ML/MIN Glucose (74-106) mg/dL POC Glucometer (74 to 106) mg/dL Lactic Acid (0.4-2.0) Calcium (8.4-10.2) mg/dL Magnesium (1.6-2.3) mg/dL Total Bilirubin (0.2-1.3) mg/dL AST (17-59) U/L ALT (0-50) U/L Alkaline Phosphatase (38-126) U/L Serum Total Protein (6.3-8.2) g/dL Albumin (3.5-5.0) g/dL Radiology Exams: Radiology Procedures Category Date Time Status CHEST 1 VIEW (PORTABLE) Stat Exams 04/10/25 04:07 Taken CHEST WITH CONTRAST [CT] Stat Exams 04/10/25 05:48 Taken Medications: Medications Generic Name Dose Route Start Last Admin Trade Name Freq PRN Reason Stop Dose Admin Albuterol Sulfate 2.5 mg 04/06/25 08:18 04/10/25 03:44 Albuterol Sulfate 2.5 Mg/3 Ml Neb 05/06/25 08:17 2.5 mg Q4HPRN PRN Administration SHORTNESS OF BREATH/WHEEZING Albuterol Sulfate 2 puff 04/06/25 08:30 Albuterol Common Canister Inhaler IH 05/06/25 08:29 Q4H PRN PRN Albuterol/Ipratropium 3 ml 04/06/25 11:00 04/09/25 18:33 Ipratropium/Albuterol Sulfate 3 Ml Ampul.Neb 05/06/25 10:59 3 ml QIDRT ALYSSA Administration Bisacodyl 10 mg 04/09/25 14:13 04/09/25 14:58 Bisacodyl 10 Mg Supp.Rect AR 04/09/25 14:14 10 mg STAT ONE Administration Bisacodyl 10 mg 04/09/25 18:00 04/09/25 18:01 Bisacodyl 10 Mg Supp.Rect AR 04/09/25 18:01 10 mg ONCE ONE Administration Diazepam 0 mg 04/06/25 08:17 Diazepam 10 Mg/2 Ml Disp.Syringe IV 05/06/25 08:16 Q2H PRN PRN CIWA SCORE Protocol Enoxaparin Sodium 40 mg 04/07/25 12:00 04/09/25 10:08 Enoxaparin Sodium 40 Mg/0.4 Ml Syringe SQ 05/07/25 11:59 40 mg DAILY ALYSSA Administration Potassium Chloride/Dextrose/Sod Cl 1,000 mls @ 50 mls/hr 04/06/25 08:30 04/09/25 17:13 D5w/0.45ns W/ 20meq Kcl 1000 Ml IV 05/06/25 08:29 90 mls/hr .Q20H ALYSSA Administration Cefoxitin Sodium 2 gm in 100 mls @ 200 mls/hr 04/06/25 09:00 04/10/25 00:36 Cefoxitin 2 Gm/100 Ml Nacl Ivpb IV 05/06/25 08:59 200 mls/hr Q8H ALYSSA Administration Metronidazole 500 mg in 100 mls @ 200 mls/hr 04/07/25 12:00 04/10/25 05:04 Flagyl 500 Mg Ivpb IV 05/07/25 11:59 200 mls/hr Q6HT ALYSSA Administration Morphine Sulfate 2 mg 04/06/25 08:12 04/10/25 04:05 Morphine Sulfate 2 Mg/Ml Inj IV 04/11/25 08:11 2 mg Q2H PRN PRN Administration PAIN Nicotine 21 mg 04/06/25 12:30 04/09/25 10:06 Nicotine 21 Mg/Patch Patch TOP 05/06/25 12:29 21 mg Q24H10 ALYSSA Administration Ondansetron HCl 4 mg 04/06/25 08:13 Ondansetron Hcl 4 Mg/2 Ml Vial IV 05/06/25 08:12 Q6H PRN PRN NAUSEA/VOMITING Pantoprazole Sodium 40 mg 04/06/25 10:00 04/09/25 22:16 Pantoprazole 40 Mg Vial IV 05/06/25 09:59 40 mg BID ALYSSA Administration Asmanex Hfa Inhaler 1 each 04/08/25 07:00 04/09/25 18:43 IH 05/08/25 06:59 1 each BIDRT ALYSSA Administration Stiolto Respimat 2 each 04/08/25 19:00 04/09/25 18:44 Inhaler IH 05/08/25 18:59 2 each 1900 ALYSSA Administration Discontinued Medications Generic Name Dose Route Start Last Admin Trade Name Freq PRN Reason Stop Dose Admin Albuterol/Ipratropium 3 ml 04/06/25 03:34 04/06/25 03:43 Ipratropium/Albuterol Sulfate 3 Ml Ampul.Neb IH 04/06/25 03:35 3 ml STAT ONE Administration Albuterol/Ipratropium Confirm 04/06/25 03:42 Ipratropium/Albuterol Sulfate 3 Ml Ampul.Neb Administered 04/06/25 03:43 Dose 3 ml IH .STK-MED ONE Azithromycin 250 mg 04/06/25 10:00 04/06/25 10:42 Azithromycin 250 Mg Tablet PO 04/09/25 10:01 Not Given DAILY ALYSSA Bupivacaine HCl Confirm 04/06/25 05:06 Bupivacaine Hcl 2.5 Mg/Ml 10 Ml Administered 04/06/25 05:07 Dose 10 ml .ROUTE .STK-MED ONE Methylprednisolone Sodium 0 mg 04/06/25 10:00 04/06/25 10:12 Succinate 20 mg/ Sterile Water IV 05/06/25 09:59 20 mg 1 ml Q12HT ALYSSA Administration Dexamethasone Sodium Phosphate Confirm 04/06/25 04:36 Dexamethasone Sodium Phosphate 4 Mg/Ml Vial Administered 04/06/25 04:37 Dose 8 mg .ROUTE .STK-MED ONE Fentanyl Citrate Confirm 04/06/25 04:35 Fentanyl Citrate 100 Mcg/2 Ml* Vial Administered 04/06/25 04:36 Dose 200 mcg .ROUTE .STK-MED ONE Hydromorphone HCl 1 mg 04/06/25 00:33 04/06/25 00:48 Hydromorphone 1 Mg/1ml Inj IV 04/06/25 00:34 1 mg STAT ONE Administration Hydromorphone HCl Confirm 04/06/25 00:46 Hydromorphone 1 Mg/1ml Inj Administered 04/06/25 00:47 Dose 1 mg .ROUTE .STK-MED ONE Hydromorphone HCl 1 mg 04/06/25 03:21 04/06/25 03:28 Hydromorphone 1 Mg/1ml Inj IV 04/06/25 03:22 1 mg STAT ONE Administration Hydromorphone HCl Confirm 04/06/25 03:26 Hydromorphone 1 Mg/1ml Inj Administered 04/06/25 03:27 Dose 1 mg .ROUTE .STK-MED ONE Sodium Chloride 1,000 mls @ 999 mls/hr 04/06/25 00:33 04/06/25 01:47 Sodium Chloride 0.9% 1000 Ml IV 04/06/25 01:33 Infused .Q1H1M STA Infusion Sodium Chloride Confirm 04/06/25 00:46 Sodium Chloride 0.9% 1000 Ml Administered 04/06/25 00:47 Dose 1,000 mls @ ud .ROUTE .STK-MED ONE Piperacillin Sod/Tazobactam 100 mls @ 200 mls/hr 04/06/25 03:17 04/06/25 03:39 Sod 3.375 gm/ Sodium Chloride IV 04/06/25 03:46 200 mls/hr STAT STA 200 mls/hr Administration Sodium Chloride Confirm 04/06/25 03:32 Sodium Chloride 0.9% Administered 04/06/25 03:33 Dose 100 mls @ ud .ROUTE .STK-MED ONE Sodium Chloride Confirm 04/06/25 03:39 Sodium Chloride 0.9% 1000 Ml Administered 04/06/25 03:40 Dose 1,000 mls @ ud .ROUTE .STK-MED ONE Sodium Chloride 1,000 mls @ 100 mls/hr 04/06/25 03:45 04/06/25 03:40 Sodium Chloride 0.9% 1000 Ml IV 05/06/25 03:44 100 mls/hr .Q10H ALYSSA Administration Acetaminophen Confirm 04/06/25 04:54 Ofirmev Administered 04/06/25 04:55 Dose 100 mls @ ud IV .STK-MED ONE Lactated Ringer's Confirm 04/06/25 05:49 Lactated Ringers Administered 04/06/25 05:50 Dose 1,000 mls @ ud IV .STK-MED ONE Ketamine HCl Confirm 04/06/25 05:11 Ketamine Hcl 50 Mg/Ml Administered 04/06/25 05:12 Dose 50 mg .ROUTE .STK-MED ONE Lidocaine HCl Confirm 04/06/25 04:35 Lidocaine - Mpf 2% 5 Ml Vial Administered 04/06/25 04:36 Dose 10 ml .ROUTE .STK-MED ONE Magnesium Sulfate Confirm 04/06/25 04:54 Magnesium Sulfate Injection Administered 04/06/25 04:55 Dose 1 gm .ROUTE .STK-MED ONE Methylprednisolone 4 mg 04/06/25 08:30 Methylprednisolone 4 Mg Packet PO 05/06/25 08:29 UD [facility] Midazolam HCl Confirm 04/06/25 05:12 Midazolam Hcl 2 Mg/2 Ml Vial Administered 04/06/25 05:13 Dose 2 mg .ROUTE .STK-MED ONE Miscellaneous Information 1 each 04/06/25 08:30 Medication Intervention 1 Each Each 05/06/25 08:29 .RT TO CHECK ALYSSA Miscellaneous Information 1 each 04/06/25 13:00 Medication Intervention 1 Each Each 05/06/25 12:59 .RT TO CHECK ALYSSA Ondansetron HCl 4 mg 04/06/25 00:35 04/06/25 00:48 Ondansetron Hcl 4 Mg/2 Ml Vial IV 04/06/25 00:36 4 mg STAT ONE Administration Ondansetron HCl Confirm 04/06/25 00:46 Ondansetron Hcl 4 Mg/2 Ml Vial Administered 04/06/25 00:47 Dose 4 mg .ROUTE .STK-MED ONE Ondansetron HCl Confirm 04/06/25 04:35 Ondansetron Hcl 4 Mg/2 Ml Vial Administered 04/06/25 04:36 Dose 8 mg .ROUTE .STK-MED ONE Pantoprazole Sodium 40 mg 04/06/25 10:00 Protonix (Pantoprazole) 40 Mg Tablet PO 05/06/25 09:59 QAM [facility] Piperacillin Sod/Tazobactam Sod Confirm 04/06/25 03:26 Piperacillin/Tazobactam Sodium 3.375 Gm Vial Administered 04/06/25 03:27 Dose 3.375 gm IV .STK-MED ONE Propofol Confirm 04/06/25 04:35 Propofol 200 Mg/20 Ml Vial Administered 04/06/25 04:36 Dose 400 mg IV .STK-MED ONE Rocuronium [place] Confirm 04/06/25 04:35 Rocuronium [place] 50 Mg/5 Ml Vial Administered 04/06/25 04:36 Dose 100 mg IV .STK-MED ONE Sugammadex Sodium Confirm 04/06/25 04:35 Sugammadex Sodium 200 Mg/2 Ml Vial Administered 04/06/25 04:36 Dose 400 mg IV .STK-MED ONE Vasopressin Confirm 04/06/25 04:54 Vasopressin 20 Unit/Ml Ml Administered 04/06/25 04:55 Dose 20 unit .ROUTE .STK-MED ONE Multi-Disciplinary Progress Notes: Multi-Disciplinary Progress Notes 04/09/25 18:46 Respiratory Note by Kelsie Willis Pt states he has been using IS and flutter on own. He is refusing to do them now. Discussed benefits of use with patient and he verbalizes understanding. Initialized on 04/09/25 18:46 - END OF NOTE 04/09/25 14:56 Respiratory Note by Jackelyn Weinstein RT called to assess patient and administer neb treatment. SpO2 decreased to 83% on assessment, increased WOB. Duoneb given. SpO2 remained low. O2 increased to 15L, will titrate down as tolerated. WOB improved. Initialized on 04/09/25 14:56 - END OF NOTE Assessment/Plan (1) Perforated gastric ulcer Current Visit: Yes Status: Acute Assessment & Plan: CTA abdomen showing new free intraperitoneal air and focal pyloric wall discontinuity with adjacent air, consistent with perforation. POD#2 after Claude patch repair and gastrojejunostomy. NPO with NG to LIS. -(-)BS/BM/flatulence -Up in chair/ambulating today -IVF D5, 1/2NS, KCL Cefoxitin per general surgery. IV morphine for pain control. Continued IV fluids; monitoring CBC/CMP. Close coordination with general surgery; serial abdominal exams. -WBC at 16.2 -LA WNL -Add Flagyl -DC phelan cath 04/08: -WBC downtrending at 11.2 -Continue Cefoxitin/Flagyl -+flatulence (-)BM, +BS x 4 quads -Continue IVF -Continue NG to LIS -Surgery following appreciate recs -CMP reviewed and stable -Dressing changes per surgery -Continue to ambulate, IS, Flutter, Up in chair 04/10: -WBC now at 10.1 -Cefoxitin discontinued - vanc/zosyn ordered for HAP - continue flagyl -Surgery to evaluate for possible scopes -+BM today -NG discontinued 04/09 -NPO with ice chips -Encourage IS and flutter -Continue IVF - advance diet per surg recs Code(s): K25.5 - CHRONIC OR UNSPECIFIED GASTRIC ULCER WITH PERFORATION (2) Perforated abdominal viscus Current Visit: Yes Status: Acute Assessment & Plan: CTA findings of pneumoperitoneum involving lesser sac, hepatic surface, and mid-abdomen consistent with hollow viscus perforation. Confirmed intraoperatively. POD#2 postoperative management. Maintain NG decompression, NPO status, and IV antibiotics. Monitor for postoperative complications (leak, abscess, sepsis). Serial labs and abdominal assessments. Code(s): R19.8 - OTH SYMPTOMS AND SIGNS INVOLVING THE DGSTV SYS AND ABDOMEN Pneumonia- HAP -Increased oxygen requirements 40L HF at 75% -CTA negative for PE, showing No evidence of pulmonary embolism, unchanged.New bilateral lower lobar consolidations and mild pleural effusion, possible infectious process/ pneumonic patches should be considered, clinical and lab correlation needed -WBC improved at 10.1 -Vanc/zosyn for HAP -sputum culture -MRSA nares - if negative can dc vanc -continue IS/Flutter (3) Abdominal pain Current Visit: Yes Status: Acute Assessment & Plan: Directly related to perforation and peritonitis. Managed through surgical repair. Analgesia with IV morphine due to NPO status. Code(s): R10.9 - UNSPECIFIED ABDOMINAL PAIN (4) Dehydration Current Visit: Yes Status: Acute Assessment & Plan: Elevated anion gap (17.5) and initial lactate elevation consistent with volume depletion - now WNL Responded to IV fluids with lactate improvement from 2.2 - 1.1. Continued hydration with IV fluids and electrolyte monitoring. 04/08: -Resolved, Gap at 10.1, Co2 at 24 -Continue IVF per surgery Code(s): E86.0 - DEHYDRATION (5) COPD (chronic obstructive pulmonary disease) Current Visit: Yes Status: Chronic Assessment & Plan: CTA chest showing stable diffuse emphysema. Initially required BiPAP postop; now on 8 L oxymizer at 90%, baseline 3 L. DuoNebs and continuation of home inhalers Maintain goal oxygen saturation greater than 90%; avoid hyperoxia. (6) Chronic back pain Current Visit: Yes Status: Chronic Assessment & Plan: No routine home regimen documented. IV morphine currently used since NPO. Transition to PO pain meds when allowable. Code(s): M54.9 - DORSALGIA, UNSPECIFIED; G89.29 - OTHER CHRONIC PAIN (7) RLS (restless legs syndrome) Current Visit: Yes Status: Chronic Assessment & Plan: No home medications. Iron studies pending. Symptomatic measures once PO allowed. (8) Lactic acidosis Current Visit: Yes Status: Resolved Assessment & Plan: Initial 2.2 improved to 1.1 with IV fluids. No evidence of sepsis. Continued hydration and monitoring for clinical change. Code(s): E87.20 - ACIDOSIS, UNSPECIFIED (9) AA (alcohol abuse) Current Visit: No Status: Acute Assessment & Plan: History of 6 beers daily; level <10 today. At risk for withdrawal in postoperative period. CIWA monitoring and withdrawal precautions in place. Adequate fluids and supportive care; thiamine as needed. Counseling provided. Code(s): F10.10 - ALCOHOL ABUSE, UNCOMPLICATED (10) Tobacco abuse Current Visit: No Status: Chronic Assessment & Plan: Heavy long-term use (34 PPD). Nicotine patch for withdrawal. Reinforced cessation counseling. VTE: SCDs PPI: Protonix Dispo: 2-5 days pending surgery eval Code status: Full code Plan of care time spent > 40 mins Code(s): K25.5 - CHRONIC OR UNSPECIFIED GASTRIC ULCER WITH PERFORATION (2) Perforated abdominal viscus Current Visit: Yes Status: Acute Code(s): R19.8 - OTH SYMPTOMS AND SIGNS INVOLVING THE DGSTV SYS AND ABDOMEN (3) Abdominal pain Current Visit: Yes Status: Acute Code(s): R10.9 - UNSPECIFIED ABDOMINAL PAIN (4) Dehydration Current Visit: Yes Status: Acute Code(s): E86.0 - DEHYDRATION (5) COPD (chronic obstructive pulmonary disease) Current Visit: Yes Status: Chronic (6) Chronic back pain Current Visit: Yes Status: Chronic Code(s): M54.9 - DORSALGIA, UNSPECIFIED; G89.29 - OTHER CHRONIC PAIN (7) RLS (restless legs syndrome) Current Visit: Yes Status: Chronic (8) Lactic acidosis Current Visit: Yes Status: Resolved Code(s): E87.20 - ACIDOSIS, UNSPECIFIED (9) AA (alcohol abuse) Current Visit: No Status: Acute Code(s): F10.10 - ALCOHOL ABUSE, UNCOMPLICATED (10) Tobacco abuse Current Visit: No Status: Chronic Code(s): Z72.0 - TOBACCO USE
--- NOTE | 2025-04-10 07:19 | XRAY ---
CLINICAL HISTORY: Rule out pulmonary embolism COMPARISON: 04/06/2025 00:31:[address] [facility] [address] TECHNIQUE: Contiguous 3.[address] images of the chest were acquired with administration of intravenous contrast. Coronal and sagittal reconstructions were obtained. 80 CC Isovue 370 was administered for post contrast images. One of the following dose reduction techniques were utilized for this exam: Automated exposure control, adjustment of the mA and/or kV according to patient size, and use of iterative reconstruction FINDINGS: Pulmonary Arteries: No evidence of pulmonary embolism. Normal size and course of the pulmonary arteries. Lungs: New bilateral lower consolidations with air bronchograms identified Bilateral mild pleural effusion, Fluid tracking into the oblique fissures bilaterally. new right lower lobe calcified granuloma Mild emphysematous changes noted in both lungs. Mediastinum: Prominent lymph nodes identified in the precarinal and prevascular location 1 of them in prevascular and precarinal location, approximately measures 0.8 cm in short axis Normal appearance of the thymus. Hilar Structures: Normal size and configuration, no enlargement. Heart and Great Vessels: Normal heart size and configuration. No pericardial effusion. Normal caliber and course of the thoracic aorta and other great vessels. No significant atherosclerosis or aneurysm. Normal enhancement of the great vessels post-contrast. Esophagus: Normal course and caliber. No masses or dilatation. Bones: No fractures or lytic/sclerotic lesions. Normal bone density and alignment. No evidence of rib fractures. Chest Wall: No masses or soft tissue abnormalities. Upper Abdomen: Visualized portions of the liver, spleen, pancreas, adrenal glands, and kidneys are normal. No abnormalities noted in the visualized upper abdominal organs. Thyroid: Normal size and morphology. No nodules or masses. IMPRESSION: 1. No evidence of pulmonary embolism, unchanged. 2. New bilateral lower lobar consolidations and mild pleural effusion, possible infectious process/ pneumonic patches should be considered, clinical and lab correlation needed. Electronically Signed by: Jaret Villalpando MD. (04/10/2025 07:14:08 EST)
--- NOTE | 2025-04-10 07:19 | XRAY ---
CLINICAL HISTORY: increased SOB, physician order COMPARISON: 04/06/2025 CT. TECHNIQUE: X-ray image of the chest was obtained in the AP portable projection. FINDINGS: Pulmonary Parenchyma: Still noted bilateral hyperinflated hyperlucent lungs in keeping with emphysema. Coarse prominent bilateral bronchovascular markings are likely non-specific. Bilateral basal atelectatic changes, A blunted right CP angle could be attributed to pleural thickening/effusion. LEFT CP not included in film. There is no evidence of consolidation, collapse, or focal opacities. Heart and Mediastinum: The heart size and shape are normal. There is no mediastinal widening or masses. No hilar or mediastinal lymphadenopathy is present. aortic arch calcifications. Bony Thorax: The bony thorax appears intact, without fractures or deformities. Soft Tissues: The soft tissues overlying the chest wall are unremarkable. Other findings: Chest leads and an indeterminate tube on the left side of the chest. IMPRESSION: 1. A blunted right CP angle could be attributed to pleural thickening/effusion. Newly seen. 2. Left CP angle not included in film. 3. Newly seen bilateral basal atelectatic changes. 4. Redemonstration of bilateral lung emphysema. Electronically Signed by: Jaret Villalpando MD. (04/10/2025 04:47:27 EST)
[2025-04-10] MEDS ORDERED: PHARMACY DOSING REQUIRED: VANCOMYCIN IV SCH (09:15)
[2025-04-10] MEDS: FEVERALL 650 MG PR PRN (12:21)
[2025-04-10] MEDS: VANCOCIN 500 MG VIAL*** 500 MG in Sodium Chloride 100ML MINI-BAG PLUS 100 ML IV SCH (13:57)
--- NOTE | 2025-04-11 05:33 | PCM.NOTE ---
Date and Time: 04/11/25 0528 Subjective Assessment: Mr. Patel is a 69 year old male with a pmhx of COPD, emphysema, restless leg syndrome, chronic back pain, heavy alcohol use (approximately six beers daily), and heavy tobacco use (three to four packs per day), who presented to the ED on 04/05/25 with abrupt epigastric pain that woke him from sleep, rated 10/10. He denied vomiting, diarrhea, or chest pain, and endorsed only baseline dyspnea. On arrival he was tachycardic and tachypneic but maintained his usual oxygen requirement. Initial labs revealed leukocytosis at 14.3, stable hemoglobin at 12.4, normal lactic acid of 1.1 after an initial elevated value of 2.2 in the ED, and a mildly elevated anion gap of 17.5 suggestive of dehydration. CTA abdomen demonstrated new free intraperitoneal air adjacent to the hepatic surface, within the lesser sac, and throughout the mid-abdomen, strongly suggestive of a hollow viscus perforation. A focal discontinuity in the pyloric wall with an adjacent air pocket indicated a likely perforated gastric ulcer. Mild mucosal edema in the right lower-quadrant ileal loops with mesenteric congestion suggested an element of enteritis. A stable sliding hiatal hernia, diffuse atherosclerotic calcifications without aneurysm or stenosis, and a stable metallic clip at the pancreatic head were also noted. CTA chest showed stable emphysematous changes without pulmonary embolism and mild ascites. Given these findings, the patient was taken emergently to the operating room where general surgery performed a Claude patch repair of a perforated gastric ulcer with associated pyloric obstruction and completed a gastrojejunostomy. Postoperatively, he has a midline abdominal incision, NG tube to low intermittent suction, and initially required 100% BiPAP, later successfully weaned to 4 L NC at 93%, which approximates his baseline. He remains NPO and is receiving IV fluids as well as IV morphine for pain control. Cefoxitin was initiated per surgical recommendation. His alcohol level on the morning after surgery was <10, consistent with clearance; withdrawal precautions remain in place. Family was updated extensively regarding surgery and postoperative expectations. 04/10/25: Patient was seen at the bedside this morning. Overnight, nursing reported episodes of worsening dyspnea and increased abdominal discomfort. On exam today, the patient remains on high-flow nasal cannula at 40 L/min with FiO2 75% and continues to require this level of support. CTA of the chest obtained overnight demonstrated multifocal pneumonia without evidence of pulmonary embolism. The patient had a bowel movement this morning with subsequent improvement in abdominal pain. General Surgery remains actively involved and is evaluating the need for endoscopic assessment; scopes are being considered pending their assessment today. Given concern for hospital-acquired pneumonia, antimicrobial therapy was broadened with the addition of vancomycin and Zosyn. Will continue to monitor respiratory status, oxygen requirements, abdominal pain, and response to treatment closely. 04/11: No overnight events noted. Endorses improvement in dyspnea. Mild incisional pain rating 1/10. Tolerating a CLD. +BM yesterday- none since. +Flatulence. CT showing pneumonia-MRSA negative with sputum culture growing gram - and + ID- will continue vanc/zosyn/Flagyl for now. IVF dc'd per surgery. Denies fever, cp, BOTELLO, dizziness, N/V/D. Resume po meds per surgery. Continues to experience significant postoperative weakness, limited endurance, and difficulty performing basic ADLs. He becomes fatigued with minimal ambulation and is unable to safely mobilize without assistance. Given his current functional deficits and the need for structured therapy, ongoing monitoring, and support for safe recovery, he would benefit from a short-term SNF rehabilitation stay. - Review of Systems Constitutional: No Symptoms Eyes: No Symptoms Ears, Nose, & Throat: No Symptoms Respiratory: Cough, Short Of Breath Cardiac: No Symptoms Abdominal/Gastrointestinal: Abdominal Pain (at incision site) Genitourinary Symptoms: No Symptoms Musculoskeletal: No Symptoms Skin: No Symptoms Neurological: No Symptoms Psychological: No Symptoms Endocrine: No Symptoms Hematologic/Lymphatic: No Symptoms Immunological/Allergic: No Symptoms Objective Exam General Appearance: no apparent distress Neurologic Exam: alert, 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, cooperative Skin Exam: normal color, other (see wound assessment) Wound Assessment: Skin/Wound Assessment Wound/Incision Assessment Start: 04/06/25 07:58 Text: Status: Active Freq: Q4H Protocol: Document 04/11/25 04:00 KD (Rec: 04/11/25 04:33 KD [id number]) Wound/Incision Assessment Abdomen Wound Assessment Shift Assessment Wound Type Incision Wound Stage Non Pressure Wound Dressing Status Dry & Intact Drainage Amount None Drainage Odor None/Absent Primary Dressing MEPILEX POST SURGICAL 4x10 DRESSING Comment dressing CDI, dressing not removed to assess incision @ this time Wound Photo Photo Taken No Eye Exam: PERRL Ears, Nose, Throat Exam: normal ENT inspection Neck Exam: normal inspection Respiratory Exam: diminished breath sounds, crackles/rales Cardiovascular Exam: regular rate/rhythm, normal heart sounds Gastrointestinal/Abdomen Exam: soft, normal bowel sounds, tenderness (at incision site mild) Extremity Exam: normal inspection Back Exam: normal inspection Male Genitalia Exam: deferred Rectal Exam: deferred Objective Data Vital Signs: Vital Signs - 24 hr Temp Pulse Resp BP Pulse Ox 04/11/25 04:00 98.1 F 95 H 21 123/58 95 04/11/25 00:00 26 H 04/10/25 23:49 98.8 F 92 H 26 H 139/65 96 04/10/25 20:00 23 04/10/25 19:38 98.7 F 99 H 23 127/60 95 04/10/25 19:20 95 H 20 94 L 04/10/25 16:36 104 H 20 91 L 04/10/25 16:03 20 04/10/25 16:00 98.8 F 111 H 22 102/58 96 04/10/25 12:35 106 H 22 93 L 04/10/25 12:27 25 H 04/10/25 11:56 100.4 F 113 H 25 H 131/68 94 L 04/10/25 11:47 93 L 04/10/25 09:35 119 H 32 H 83 L 04/10/25 08:14 22 04/10/25 08:00 98.8 F 103 H 22 143/67 98 04/10/25 07:28 101 H 22 96 Pain Assessment - Last Documented Pain Intensity [Abdomen] 1 Pain Intensity 2 Pain Scale Used 0-10 Pain Scale Intake and Output: Intake & Output 04/08/25 04/09/25 04/10/25 04/11/25 11:59 11:59 11:59 11:59 Intake Total 2603 2549 2548 2458 Output Total 1850 2900 2150 600 Balance [phone] [phone] 4376 Weight 70 kg Lab Results: Lab Results-Last 24 Hours 04/10/25 04/10/25 04/10/25 Range/Units 07:47 09:50 11:39 POC Glucometer 106 92 (74 to 106) mg/dL Nasal Screen MRSA (PCR) NOT DETECTED (NEGATIVE) 04/10/25 04/10/2525 Range/Units 16:16 19:53 23:55 POC Glucometer 94 87 90 (74 to 106) mg/dL Nasal Screen MRSA (PCR) (NEGATIVE) 04/11/25 Range/Units 04:08 POC Glucometer 88 (74 to 106) mg/dL Nasal Screen MRSA (PCR) (NEGATIVE) Radiology Exams: Radiology Procedures Category Date Time Status CHEST 1 VIEW (PORTABLE) Stat Exams 04/10/25 04:07 Completed CHEST WITH CONTRAST [CT] Stat Exams 04/10/25 05:48 Completed Medications: Medications Generic Name Dose Route Start Last Admin Trade Name Freq PRN Reason Stop Dose Admin Acetaminophen 650 mg 04/10/25 11:51 04/10/25 12:21 Acetaminophen 650 Mg Supp.Rect SD 05/10/25 11:50 650 mg Q4H PRN PRN Administration PAIN AND/OR FEVER Albuterol Sulfate 2.5 mg 04/06/25 08:18 04/10/25 16:36 Albuterol Sulfate 2.5 Mg/3 Ml Neb 05/06/25 08:17 2.5 mg Q4HPRN PRN Administration SHORTNESS OF BREATH/WHEEZING Albuterol Sulfate 2 puff 04/06/25 08:30 Albuterol Common Canister Inhaler 05/06/25 08:29 Q4H PRN PRN Albuterol/Ipratropium 3 ml 04/06/25 11:00 04/10/25 19:19 Ipratropium/Albuterol Sulfate 3 Ml Ampul.Neb 05/06/25 10:59 3 ml QIDRT ALYSSA Administration Device 1 04/11/25 05:30 Therapuetic Drug Level Monitor Each IJ 04/11/25 05:31 1XONLY ONE Diazepam 0 mg 04/06/25 08:17 Diazepam 10 Mg/2 Ml Disp.Syringe IV 05/06/25 08:16 Q2H PRN PRN CIWA SCORE Protocol Enoxaparin Sodium 40 mg 04/07/25 12:00 04/10/25 10:26 Enoxaparin Sodium 40 Mg/0.4 Ml Syringe SQ 05/07/25 11:59 40 mg DAILY ALYSSA Administration Potassium Chloride/Dextrose/Sod Cl 1,000 mls @ 50 mls/hr 04/06/25 08:30 04/10/25 09:16 D5w/0.45ns W/ 20meq Kcl 1000 Ml IV 05/06/25 08:29 90 mls/hr .Q20H ALYSSA Administration Metronidazole 500 mg in 100 mls @ 200 mls/hr 04/07/25 12:00 04/10/25 23:29 Flagyl 500 Mg Ivpb IV 05/07/25 11:59 200 mls/hr Q6HT ALYSSA Administration Piperacillin Sod/Tazobactam 100 mls @ 200 mls/hr 04/10/25 12:00 04/11/25 00:08 Sod 3.375 gm/ Sodium Chloride IV 04/13/25 11:59 200 mls/hr Q6HT ALYSSA Administration Vancomycin HCl 500 mg/ Sodium 100 mls @ 100 mls/hr 04/10/25 12:00 04/11/25 00:52 Chloride IV 05/10/25 11:59 100 mls/hr Q6HT ALYSSA Administration Morphine Sulfate 2 mg 04/06/25 08:12 04/10/25 21:33 Morphine Sulfate 2 Mg/Ml Inj IV 04/11/25 08:11 2 mg Q2H PRN PRN Administration PAIN Nicotine 21 mg 04/06/25 12:30 04/10/25 10:26 Nicotine 21 Mg/Patch Patch TOP 05/06/25 12:29 21 mg Q24H10 ALYSSA Administration Ondansetron HCl 4 mg 04/06/25 08:13 Ondansetron Hcl 4 Mg/2 Ml Vial IV 05/06/25 08:12 Q6H PRN PRN NAUSEA/VOMITING Pantoprazole Sodium 40 mg 04/06/25 10:00 04/10/25 21:30 Pantoprazole 40 Mg Vial IV 05/06/25 09:59 40 mg BID ALYSSA Administration Asmanex Hfa Inhaler 1 each 04/08/25 07:00 04/10/25 19:19 IH 05/08/25 06:59 1 each BIDRT ALYSSA Administration Stiolto Respimat 2 each 04/08/25 19:00 04/10/25 19:19 Inhaler IH 05/08/25 18:59 2 each 1900 ALYSSA Administration Discontinued Medications Generic Name Dose Route Start Last Admin Trade Name Freq PRN Reason Stop Dose Admin Albuterol/Ipratropium 3 ml 04/06/25 03:34 04/06/25 03:43 Ipratropium/Albuterol Sulfate 3 Ml Ampul.Neb IH 04/06/25 03:35 3 ml STAT ONE Administration Albuterol/Ipratropium Confirm 04/06/25 03:42 Ipratropium/Albuterol Sulfate 3 Ml Ampul.Neb Administered 04/06/25 03:43 Dose 3 ml IH .STK-MED ONE Azithromycin 250 mg 04/06/25 10:00 04/06/25 10:42 Azithromycin 250 Mg Tablet PO 04/09/25 10:01 Not Given DAILY ALYSSA Bisacodyl 10 mg 04/09/25 14:13 04/09/25 14:58 Bisacodyl 10 Mg Supp.Rect SD 04/09/25 14:14 10 mg STAT ONE Administration Bisacodyl 10 mg 04/09/25 18:00 04/09/25 18:01 Bisacodyl 10 Mg Supp.Rect SD 04/09/25 18:01 10 mg ONCE ONE Administration Bupivacaine HCl Confirm 04/06/25 05:06 Bupivacaine Hcl 2.5 Mg/Ml 10 Ml Administered 04/06/25 05:07 Dose 10 ml .ROUTE .STK-MED ONE Methylprednisolone Sodium 0 mg 04/06/25 10:00 04/06/25 10:12 Succinate 20 mg/ Sterile Water IV 05/06/25 09:59 20 mg 1 ml Q12HT ALYSSA Administration Dexamethasone Sodium Phosphate Confirm 04/06/25 04:36 Dexamethasone Sodium Phosphate 4 Mg/Ml Vial Administered 04/06/25 04:37 Dose 8 mg .ROUTE .STK-MED ONE Fentanyl Citrate Confirm 04/06/25 04:35 Fentanyl Citrate 100 Mcg/2 Ml* Vial Administered 04/06/25 04:36 Dose 200 mcg .ROUTE .STK-MED ONE Hydromorphone HCl 1 mg 04/06/25 00:33 04/06/25 00:48 Hydromorphone 1 Mg/1ml Inj IV 04/06/25 00:34 1 mg STAT ONE Administration Hydromorphone HCl Confirm 04/06/25 00:46 Hydromorphone 1 Mg/1ml Inj Administered 04/06/25 00:47 Dose 1 mg .ROUTE .STK-MED ONE Hydromorphone HCl 1 mg 04/06/25 03:21 04/06/25 03:28 Hydromorphone 1 Mg/1ml Inj IV 04/06/25 03:22 1 mg STAT ONE Administration Hydromorphone HCl Confirm 04/06/25 03:26 Hydromorphone 1 Mg/1ml Inj Administered 04/06/25 03:27 Dose 1 mg .ROUTE .STK-MED ONE Sodium Chloride 1,000 mls @ 999 mls/hr 04/06/25 00:33 04/06/25 01:47 Sodium Chloride 0.9% 1000 Ml IV 04/06/25 01:33 Infused .Q1H1M STA Infusion Sodium Chloride Confirm 04/06/25 00:46 Sodium Chloride 0.9% 1000 Ml Administered 04/06/25 00:47 Dose 1,000 mls @ ud .ROUTE .STK-MED ONE Piperacillin Sod/Tazobactam 100 mls @ 200 mls/hr 04/06/25 03:17 04/06/25 03:39 Sod 3.375 gm/ Sodium Chloride IV 04/06/25 03:46 200 mls/hr STAT STA 200 mls/hr Administration Sodium Chloride Confirm 04/06/25 03:32 Sodium Chloride 0.9% Administered 04/06/25 03:33 Dose 100 mls @ ud .ROUTE .STK-MED ONE Sodium Chloride Confirm 04/06/25 03:39 Sodium Chloride 0.9% 1000 Ml Administered 04/06/25 03:40 Dose 1,000 mls @ ud .ROUTE .STK-MED ONE Sodium Chloride 1,000 mls @ 100 mls/hr 04/06/25 03:45 04/06/25 03:40 Sodium Chloride 0.9% 1000 Ml IV 05/06/25 03:44 100 mls/hr .Q10H ALYSSA Administration Acetaminophen Confirm 04/06/25 04:54 Ofirmev Administered 04/06/25 04:55 Dose 100 mls @ ud IV .STK-MED ONE Lactated Ringer's Confirm 04/06/25 05:49 Lactated Ringers Administered 04/06/25 05:50 Dose 1,000 mls @ ud IV .STK-MED ONE Cefoxitin Sodium 2 gm in 100 mls @ 200 mls/hr 04/06/25 09:00 04/10/25 00:36 Cefoxitin 2 Gm/100 Ml Nacl Ivpb IV 05/06/25 08:59 200 mls/hr Q8H ALYSSA Administration Ketamine HCl Confirm 04/06/25 05:11 Ketamine Hcl 50 Mg/Ml Administered 04/06/25 05:12 Dose 50 mg .ROUTE .STK-MED ONE Lidocaine HCl Confirm 04/06/25 04:35 Lidocaine - Mpf 2% 5 Ml Vial Administered 04/06/25 04:36 Dose 10 ml .ROUTE .STK-MED ONE Magnesium Sulfate Confirm 04/06/25 04:54 Magnesium Sulfate Injection Administered 04/06/25 04:55 Dose 1 gm .ROUTE .STK-MED ONE Methylprednisolone 4 mg 04/06/25 08:30 Methylprednisolone 4 Mg Packet PO 05/06/25 08:29 UD [facility] Midazolam HCl Confirm 04/06/25 05:12 Midazolam Hcl 2 Mg/2 Ml Vial Administered 04/06/25 05:13 Dose 2 mg .ROUTE .STK-MED ONE Miscellaneous Information 1 each 04/06/25 08:30 Medication Intervention 1 Each Each 05/06/25 08:29 .RT TO CHECK [facility] Miscellaneous Information 1 each 04/06/25 13:00 Medication Intervention 1 Each Each MC 05/06/25 12:59 .RT TO CHECK [facility] Non-Formulary Medication 1 each 04/10/25 09:15 Pharmacy Dose Request: Vancomycin 1 Each IV 05/10/25 09:14 [facility] Ondansetron HCl 4 mg 04/06/25 00:35 04/06/25 00:48 Ondansetron Hcl 4 Mg/2 Ml Vial IV 04/06/25 00:36 4 mg STAT ONE Administration Ondansetron HCl Confirm 04/06/25 00:46 Ondansetron Hcl 4 Mg/2 Ml Vial Administered 04/06/25 00:47 Dose 4 mg .ROUTE .STK-MED ONE Ondansetron HCl Confirm 04/06/25 04:35 Ondansetron Hcl 4 Mg/2 Ml Vial Administered 04/06/25 04:36 Dose 8 mg .ROUTE .STK-MED ONE Pantoprazole Sodium 40 mg 04/06/25 10:00 Protonix (Pantoprazole) 40 Mg Tablet PO 05/06/25 09:59 QAM [facility] Piperacillin Sod/Tazobactam Sod Confirm 04/06/25 03:26 Piperacillin/Tazobactam Sodium 3.375 Gm Vial Administered 04/06/25 03:27 Dose 3.375 gm IV .STK-MED ONE Propofol Confirm 04/06/25 04:35 Propofol 200 Mg/20 Ml Vial Administered 04/06/25 04:36 Dose 400 mg IV .STK-MED ONE Rocuronium Reading Confirm 04/06/25 04:35 Rocuronium Reading 50 Mg/5 Ml Vial Administered 04/06/25 04:36 Dose 100 mg IV .STK-MED ONE Sugammadex Sodium Confirm 04/06/25 04:35 Sugammadex Sodium 200 Mg/2 Ml Vial Administered 04/06/25 04:36 Dose 400 mg IV .STK-MED ONE Vasopressin Confirm 04/06/25 04:54 Vasopressin 20 Unit/Ml Ml Administered 04/06/25 04:55 Dose 20 unit .ROUTE .STK-MED ONE Multi-Disciplinary Progress Notes: Multi-Disciplinary Progress Notes 04/10/25 09:59 Respiratory Note by Jackelyn Weinstein RT called after patient had ambulated to bathroom due to low SpO2. SpO2 81%; Increased from 10L oxymask to 15L oxymask--SpO2 85%. Then, placed on Heated High Flow 40L-100% FiO2. SpO2 increased to 92%. Patient reports decreased SOB. Initialized on 04/10/25 09:59 - END OF NOTE 04/10/25 09:41 Pharmacy Note by Osmani Munguia Pharmacokinetic dosing service Date: Time: Objective: Patient: Floor: 114-1 Age: 69 yo Serum creatinine: 0.64 mg/dL Height: 70.0 Inches Weight (kg): 70 Diagnosis: Relevant medical/social history: Cultures and sensitivities: Other labs: Assessment: IBW (kg): 73.00 Dosing wt(kg): 70 Estimated Creatinine clearance (ml/min): 104.8 CRCL method: Cockcroft and Gault using ibw(default). Drug selected: Vancomycin Loading dose (mg): Vd (liters): 49.0 (factor used: 0.7 L/kg) Ifeanyi (hr-1): 0.091 Half life (hrs): 7.62 CLvanco= 4.459 L/hr Recommended dose: 500 mg Interval: 6 hrs Infusion time (hrs): 1 Predicted peak (mcg/mL): 23.2 Predicted trough (mcg/mL): 14.72 Total body weight is being used for vancomycin dosing. Renal function is stable [ ] /unstable [ ] Recommendations: Give Vancomycin 500 mg q 6 hrs with an expected Cpeak of 23.2 mcg/ml and an expected Ctrough of 14.72 mcg/ml AUC 0-24 /WILLIE Data: WILLIE 0.5 mcg/mL: AUC/WILLIE: 897.1 WILLIE 1.0 mcg/mL: AUC/WILLIE: 448.5 --------- WILLIE 1.5 mcg/mL: AUC/WILLIE: 299.0 WILLIE 2.0 mcg/mL: AUC/WILLIE: 224.3 Renal dosing of other antibiotics (review renal dosing of other medications and list guidelines here): Thank you for the consult, will continue to follow. Signature: [facility] 04/11 @ 0530 Initialized on 04/10/25 09:41 - END OF NOTE Assessment/Plan (1) Perforated gastric ulcer Current Visit: Yes Status: Acute Assessment & Plan: CTA abdomen showing new free intraperitoneal air and focal pyloric wall discontinuity with adjacent air, consistent with perforation. POD#2 after Claude patch repair and gastrojejunostomy. NPO with NG to LIS. -(-)BS/BM/flatulence -Up in chair/ambulating today -IVF D5, 1/2NS, KCL Cefoxitin per general surgery. IV morphine for pain control. Continued IV fluids; monitoring CBC/CMP. Close coordination with general surgery; serial abdominal exams. -WBC at 16.2 -LA WNL -Add Flagyl -DC phelan cath 04/08: -WBC downtrending at 11.2 -Continue Cefoxitin/Flagyl -+flatulence (-)BM, +BS x 4 quads -Continue IVF -Continue NG to LIS -Surgery following appreciate recs -CMP reviewed and stable -Dressing changes per surgery -Continue to ambulate, IS, Flutter, Up in chair 04/10: -WBC now at 10.1 -Cefoxitin discontinued - vanc/zosyn ordered for HAP - continue flagyl -Surgery to evaluate for possible scopes -+BM today -NG discontinued 04/09 -NPO with ice chips -Encourage IS and flutter -Continue IVF - advance diet per surg recs 04/11: -Surgery following Diet advanced to CLD diet and PO meds to resume -resume po meds -dc IVF per surgery -encourage ambulation/up in chair -IS/flutter Code(s): K25.5 - CHRONIC OR UNSPECIFIED GASTRIC ULCER WITH PERFORATION (2) Perforated abdominal viscus Current Visit: Yes Status: Acute Assessment & Plan: CTA findings of pneumoperitoneum involving lesser sac, hepatic surface, and mid-abdomen consistent with hollow viscus perforation. Confirmed intraoperatively. POD#2 postoperative management. Maintain NG decompression, NPO status, and IV antibiotics. Monitor for postoperative complications (leak, abscess, sepsis). Serial labs and abdominal assessments. Code(s): R19.8 - OTH SYMPTOMS AND SIGNS INVOLVING THE DGSTV SYS AND ABDOMEN Pneumonia- HAP -Increased oxygen requirements 40L HF at 75% -CTA negative for PE, showing No evidence of pulmonary embolism, unchanged.New bilateral lower lobar consolidations and mild pleural effusion, possible infectious process/ pneumonic patches should be considered, clinical and lab correlation needed -WBC improved at 10.1 -Vanc/zosyn for HAP -sputum culture -MRSA nares - if negative can dc vanc -continue IS/Flutter -Fever 100.4- tylenol given 04/11: -MRSA via nares not detected -Sputum culture with gram + rods -Continue vanc/Zosyn/flagyl - follow culture -Oxygen at 40L HF - now at 15L oxymask -Afebrile overnight Weakness -Physical/Occupational Therapy Daily PT/OT to improve strength, mobility, and ADL independence. -Progressive Mobilization Ambulate with assistance; increase distance as tolerated. -Fall Precautions Bed/chair alarms, close supervision during transfers. -Discharge Planning SNF rehab recommended for continued strengthening and functional recovery. (3) Abdominal pain Current Visit: Yes Status: Acute Assessment & Plan: Directly related to perforation and peritonitis. Managed through surgical repair. Analgesia with IV morphine due to NPO status. Code(s): R10.9 - UNSPECIFIED ABDOMINAL PAIN (4) Dehydration Current Visit: Yes Status: Acute Assessment & Plan: Elevated anion gap (17.5) and initial lactate elevation consistent with volume depletion - now WNL Responded to IV fluids with lactate improvement from 2.2 - 1.1. Continued hydration with IV fluids and electrolyte monitoring. 04/08: -Resolved, Gap at 10.1, Co2 at 24 -Continue IVF per surgery Code(s): E86.0 - DEHYDRATION (5) COPD (chronic obstructive pulmonary disease) Current Visit: Yes Status: Chronic Assessment & Plan: CTA chest showing stable diffuse emphysema. Initially required BiPAP postop; now on 8 L oxymizer at 90%, baseline 3 L. DuoNebs and continuation of home inhalers Maintain goal oxygen saturation greater than 90%; avoid hyperoxia. (6) Chronic back pain Current Visit: Yes Status: Chronic Assessment & Plan: No routine home regimen documented. IV morphine currently used since NPO. Transition to PO pain meds when allowable. Code(s): M54.9 - DORSALGIA, UNSPECIFIED; G89.29 - OTHER CHRONIC PAIN (7) RLS (restless legs syndrome) Current Visit: Yes Status: Chronic Assessment & Plan: No home medications. Iron studies pending. Symptomatic measures once PO allowed. (8) Lactic acidosis Current Visit: Yes Status: Resolved Assessment & Plan: Initial 2.2 improved to 1.1 with IV fluids. No evidence of sepsis. Continued hydration and monitoring for clinical change. Code(s): E87.20 - ACIDOSIS, UNSPECIFIED (9) AA (alcohol abuse) Current Visit: No Status: Acute Assessment & Plan: History of 6 beers daily; level <10 today. At risk for withdrawal in postoperative period. CIWA monitoring and withdrawal precautions in place. Adequate fluids and supportive care; thiamine as needed. Counseling provided. Code(s): F10.10 - ALCOHOL ABUSE, UNCOMPLICATED (10) Tobacco abuse Current Visit: No Status: Chronic Assessment & Plan: Heavy long-term use (34 PPD). Nicotine patch for withdrawal. Reinforced cessation counseling. VTE: Lovenox PPI: Protonix Dispo: 2-5 days pending surgery eval Code status: Full code Plan of care time spent > 40 mins Code(s): K25.5 - CHRONIC OR UNSPECIFIED GASTRIC ULCER WITH PERFORATION (2) Perforated abdominal viscus Current Visit: Yes Status: Acute Code(s): R19.8 - OTH SYMPTOMS AND SIGNS INVOLVING THE DGSTV SYS AND ABDOMEN (3) Abdominal pain Current Visit: Yes Status: Acute Code(s): R10.9 - UNSPECIFIED ABDOMINAL PAIN (4) Dehydration Current Visit: Yes Status: Acute Code(s): E86.0 - DEHYDRATION (5) COPD (chronic obstructive pulmonary disease) Current Visit: Yes Status: Chronic (6) Chronic back pain Current Visit: Yes Status: Chronic Code(s): M54.9 - DORSALGIA, UNSPECIFIED; G89.29 - OTHER CHRONIC PAIN (7) RLS (restless legs syndrome) Current Visit: Yes Status: Chronic (8) Lactic acidosis Current Visit: Yes Status: Resolved Code(s): E87.20 - ACIDOSIS, UNSPECIFIED (9) AA (alcohol abuse) Current Visit: No Status: Acute Code(s): F10.10 - ALCOHOL ABUSE, UNCOMPLICATED (10) Tobacco abuse Current Visit: No Status: Chronic Code(s): Z72.0 - TOBACCO USE (11) Weakness Current Visit: Yes Status: Acute Code(s): R53.1 - WEAKNESS
[2025-04-11 06:13] LABS: Hematocrit 31.9 % (40.1-51.0); Hemoglobin 9.6 g/dL (13.7-17.5); Mean Corpuscular Hemoglobin 26.4 pg (25.7-32.2); Mean Corpuscular Hgb Concent. 30.1 g/dL (32.3-36.5); Platelet Count 229 x10^3/uL (163-337); Red Blood Count 3.63 x10^6/uL (4.63-6.08); White Blood Count 10.9 x10^3/uL (4.23-9.07)
[2025-04-11 06:29] LABS: Calcium 8.9 mg/dL (8.4-10.2); Carbon Dioxide 19.0 mmol/L (22-30); Creatinine 1 0.66 mg/dL (0.66-1.25); EST GLOMERULAR FILTRATION RATE 100.3 ML/MIN; Glucose 101.0 mg/dL (74-106); Potassium 3.5 mmol/L (3.5-5.1); SGOT/AST 27.0 U/L (17-59); SGPT/ALT 16.0 U/L (0-50); Total Protein 6.3 g/dL (6.3-8.2)
[2025-04-11] MEDS: TROUGH DRUG LEVELS IJ ONE (08:17)
[2025-04-11 08:33] LABS: Total Cells Counted 100
[2025-04-11] MEDS ORDERED: NORCO 5/325 MG PO PRN (08:33)
[2025-04-11 08:37] LABS: Poikilocytosis 1+
[2025-04-11] MEDS: VANCOMYCIN 1 GRAM/200 ML BAG 1 GM/200 ML PIGGYBACK IV SCH (11:50)
[2025-04-11] MEDS ORDERED: PIPERACILLIN/TAZOBACTAM IV ONE (18:01)
[2025-04-11] MEDS: TYLENOL 325 MG PO PRN (23:01)
--- NOTE | 2025-04-12 05:30 | PCM.NOTE ---
Date and Time: 04/12/25 0529 Subjective Assessment: Mr. Patel is a 69 year old male with a pmhx of COPD, emphysema, restless leg syndrome, chronic back pain, heavy alcohol use (approximately six beers daily), and heavy tobacco use (three to four packs per day), who presented to the ED on 04/05/25 with abrupt epigastric pain that woke him from sleep, rated 10/10. He denied vomiting, diarrhea, or chest pain, and endorsed only baseline dyspnea. On arrival he was tachycardic and tachypneic but maintained his usual oxygen requirement. Initial labs revealed leukocytosis at 14.3, stable hemoglobin at 12.4, normal lactic acid of 1.1 after an initial elevated value of 2.2 in the ED, and a mildly elevated anion gap of 17.5 suggestive of dehydration. CTA abdomen demonstrated new free intraperitoneal air adjacent to the hepatic surface, within the lesser sac, and throughout the mid-abdomen, strongly suggestive of a hollow viscus perforation. A focal discontinuity in the pyloric wall with an adjacent air pocket indicated a likely perforated gastric ulcer. Mild mucosal edema in the right lower-quadrant ileal loops with mesenteric congestion suggested an element of enteritis. A stable sliding hiatal hernia, diffuse atherosclerotic calcifications without aneurysm or stenosis, and a stable metallic clip at the pancreatic head were also noted. CTA chest showed stable emphysematous changes without pulmonary embolism and mild ascites. Given these findings, the patient was taken emergently to the operating room where general surgery performed a Claude patch repair of a perforated gastric ulcer with associated pyloric obstruction and completed a gastrojejunostomy. Postoperatively, he has a midline abdominal incision, NG tube to low intermittent suction, and initially required 100% BiPAP, later successfully weaned to 4 L NC at 93%, which approximates his baseline. He remains NPO and is receiving IV fluids as well as IV morphine for pain control. Cefoxitin was initiated per surgical recommendation. His alcohol level on the morning after surgery was <10, consistent with clearance; withdrawal precautions remain in place. Family was updated extensively regarding surgery and postoperative expectations. 04/10/25: Patient was seen at the bedside this morning. Overnight, nursing reported episodes of worsening dyspnea and increased abdominal discomfort. On exam today, the patient remains on high-flow nasal cannula at 40 L/min with FiO2 75% and continues to require this level of support. CTA of the chest obtained overnight demonstrated multifocal pneumonia without evidence of pulmonary embolism. The patient had a bowel movement this morning with subsequent improvement in abdominal pain. General Surgery remains actively involved and is evaluating the need for endoscopic assessment; scopes are being considered pending their assessment today. Given concern for hospital-acquired pneumonia, antimicrobial therapy was broadened with the addition of vancomycin and Zosyn. Will continue to monitor respiratory status, oxygen requirements, abdominal pain, and response to treatment closely. 04/11: No overnight events noted. Endorses improvement in dyspnea. Mild incisional pain rating 1/10. Tolerating a CLD. +BM yesterday- none since. +Flatulence. CT showing pneumonia-MRSA negative with sputum culture growing gram - and + ID- will continue vanc/zosyn/Flagyl for now. IVF dc'd per surgery. Denies fever, cp, BOTELLO, dizziness, N/V/D. Resume po meds per surgery. Continues to experience significant postoperative weakness, limited endurance, and difficulty performing basic ADLs. He becomes fatigued with minimal ambulation and is unable to safely mobilize without assistance. Given his current functional deficits and the need for structured therapy, ongoing monitoring, and support for safe recovery, he would benefit from a short-term SNF rehabilitation stay. 04/12: Met with the patient at bedside this morning. He reports continued improvement in dyspnea; oxygen requirement has decreased to 12 L via Oxymizer from 15L; baseline of 3 L at home. He has a persistent but improving cough producing white sputum. Mild abdominal discomfort reported, but he had a bowel movement last night and continues to tolerate a full liquid diet without nausea or vomiting. Sputum culture is growing Pseudomonas, so vancomycin will be discontinued, and he will continue on Zosyn and Flagyl per current sensitivities. He denies fevers, chills, chest pain, or worsening respiratory symptoms. Mobility remains limited due to deconditioning and ongoing respiratory needs; he requires assistance for ambulation beyond short distances. Anticipate improving medical stability over the next 2448 hours. Physical Therapy evaluation is planned for tomorrow to determine functional status, rehabilitation potential, and appropriateness for post-acute rehab placement. - Review of Systems Constitutional: Weakness Eyes: No Symptoms Ears, Nose, & Throat: No Symptoms Respiratory: Cough, Short Of Breath Cardiac: No Symptoms Abdominal/Gastrointestinal: Abdominal Pain Genitourinary Symptoms: No Symptoms Musculoskeletal: No Symptoms Skin: Other (MLI CDI) Neurological: No Symptoms Psychological: No Symptoms Endocrine: No Symptoms Hematologic/Lymphatic: No Symptoms Immunological/Allergic: No Symptoms Objective Exam General Appearance: no apparent distress Neurologic Exam: alert, 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, cooperative Skin Exam: normal color Wound Assessment: Skin/Wound Assessment Wound/Incision Assessment Start: 04/06/25 07:58 Text: Status: Active Freq: Q4H Protocol: Document 04/12/25 04:00 KD (Rec: 04/12/25 04:24 KD [id number]) Wound/Incision Assessment Abdomen Wound Assessment Shift Assessment Wound Type Incision Wound Stage Non Pressure Wound Dressing Status Dry & Intact Drainage Amount None Drainage Odor None/Absent Primary Dressing MEPILEX POST SURGICAL 4x10 DRESSING Comment Dressing not removed at this time to assess incision, CDI. Wound Photo Photo Taken No Eye Exam: PERRL Ears, Nose, Throat Exam: normal ENT inspection Neck Exam: normal inspection Respiratory Exam: diminished breath sounds Cardiovascular Exam: regular rate/rhythm, normal heart sounds Gastrointestinal/Abdomen Exam: soft, normal bowel sounds, tenderness (MLI) Extremity Exam: normal inspection Back Exam: normal inspection Male Genitalia Exam: deferred Rectal Exam: deferred Objective Data Vital Signs: Vital Signs - 24 hr Temp Pulse Resp BP Pulse Ox 04/12/25 04:00 98.1 F 81 21 125/59 97 04/12/25 00:00 19 04/11/25 23:48 99.3 F 04/11/25 23:41 100.1 F 88 19 130/60 97 04/11/25 20:00 98.1 F 62 20 163/85 96 04/11/25 19:07 102 H 18 92 L 04/11/25 16:00 98.6 F 111 H 24 150/68 95 04/11/25 15:07 106 H 23 93 L 04/11/25 11:23 94 L 04/11/25 11:04 96 H 21 97 04/11/25 07:58 97.5 F 98 H 21 136/68 95 04/11/25 06:45 93 H 22 93 L Pain Assessment - Last Documented Pain Intensity [Abdomen] 1 Pain Intensity 1 Pain Scale Used 0-10 Pain Scale Intake and Output: Intake & Output 04/09/25 04/10/25 04/11/25 04/12/25 11:59 11:59 11:59 11:59 Intake Total 7740 0300 9011 1828 Output Total 2900 2150 600 1250 Balance -971 719 9138 578 Weight 70 kg Lab Results: Lab Results-Last 24 Hours 04/11/25 04/11/25 04/11/25 Range/Units 06:00 06:00 06:00 WBC 10.9 H (4.23-9.07) x10^3/uL RBC 3.63 L (4.63-6.08) x10^6/uL Hgb 9.6 L (13.7-17.5) g/dL Hct 31.9 L (40.1-51.0) % MCV 87.9 (79.0-92.2) fL MCH 26.4 (25.7-32.2) pg MCHC 30.1 L (32.3-36.5) g/dL RDW 16.8 H (11.6-14.4) % Plt Count 229 (163-337) x10^3/uL MPV 8.8 L (9.4-12.4) fL Segmented Neutrophils 92 H (34.0-67.9) % Lymphocytes (Manual) 6 L (21.8-53.1) % Monocytes (Manual) 2 L (5.3-12.2) % Platelet Estimate NORMAL (NORMAL) RBC Morphology ABNORMAL Poikilocytosis 1+ Spherocytes 1+ Sodium 135 (135-145) mmol/L Potassium 3.5 (3.5-5.1) mmol/L Chloride 106 (98-107) mmol/L Carbon Dioxide 19 L (22-30) mmol/L Anion Gap 12.9 (5-15) MEQ/L BUN 11 (9-20) mg/dL Creatinine 0.66 (0.66-1.25) mg/dL Estimated GFR 100.3 ML/MIN Glucose 101 (74-106) mg/dL POC Glucometer (74 to 106) mg/dL Calcium 8.9 (8.4-10.2) mg/dL Magnesium 1.7 (1.6-2.3) mg/dL Total Bilirubin 0.60 (0.2-1.3) mg/dL AST 27 (17-59) U/L ALT 16 (0-50) U/L Alkaline Phosphatase 50 (38-126) U/L Serum Total Protein 6.3 (6.3-8.2) g/dL Albumin 3.2 L (3.5-5.0) g/dL Vancomycin Trough 6.23 L (10-20) ug/mL 04/11/25 Range/Units 08:07 WBC (4.23-9.07) x10^3/uL RBC (4.63-6.08) x10^6/uL Hgb (13.7-17.5) g/dL Hct (40.1-51.0) % MCV (79.0-92.2) fL MCH (25.7-32.2) pg MCHC (32.3-36.5) g/dL RDW (11.6-14.4) % Plt Count (163-337) x10^3/uL MPV (9.4-12.4) fL Segmented Neutrophils (34.0-67.9) % Lymphocytes (Manual) (21.8-53.1) % Monocytes (Manual) (5.3-12.2) % Platelet Estimate (NORMAL) RBC Morphology Poikilocytosis Spherocytes Sodium (135-145) mmol/L Potassium (3.5-5.1) mmol/L Chloride (98-107) mmol/L Carbon Dioxide (22-30) mmol/L Anion Gap (5-15) MEQ/L BUN (9-20) mg/dL Creatinine (0.66-1.25) mg/dL Estimated GFR ML/MIN Glucose (74-106) mg/dL POC Glucometer 80 (74 to 106) mg/dL Calcium (8.4-10.2) mg/dL Magnesium (1.6-2.3) mg/dL Total Bilirubin (0.2-1.3) mg/dL AST (17-59) U/L ALT (0-50) U/L Alkaline Phosphatase (38-126) U/L Serum Total Protein (6.3-8.2) g/dL Albumin (3.5-5.0) g/dL Vancomycin Trough (10-20) ug/mL Radiology Exams: Radiology Procedures Category Date Time Status CHEST WITH CONTRAST [CT] Stat Exams 04/10/25 05:48 Completed Medications: Medications Generic Name Dose Route Start Last Admin Trade Name Freq PRN Reason Stop Dose Admin Acetaminophen 650 mg 04/10/25 11:51 04/10/25 12:21 Acetaminophen 650 Mg Supp.Rect LA 05/10/25 11:50 650 mg Q4H PRN PRN Administration PAIN AND/OR FEVER Acetaminophen 650 mg 04/11/25 08:40 04/11/25 23:01 Acetaminophen 325 Mg Tablet PO 05/11/25 08:39 650 mg Q4H PRN PRN Administration PAIN AND/OR FEVER Hydrocodone Bitart/Acetaminophen 1 tab 04/11/25 08:33 Hydrocodone/Apap 5/325 1 Tab Tablet PO 04/16/25 08:32 Q4H PRN PRN PAIN Albuterol Sulfate 2.5 mg 04/06/25 08:18 04/10/25 16:36 Albuterol Sulfate 2.5 Mg/3 Ml Neb 05/06/25 08:17 2.5 mg Q4HPRN PRN Administration SHORTNESS OF BREATH/WHEEZING Albuterol Sulfate 2 puff 04/06/25 08:30 Albuterol Common Canister Inhaler 05/06/25 08:29 Q4H PRN PRN Albuterol/Ipratropium 3 ml 04/06/25 11:00 04/11/25 19:05 Ipratropium/Albuterol Sulfate 3 M[facility] 05/06/25 10:59 3 ml QIDRT ALYSSA Administration Device 1 04/12/25 05:30 Therapuetic Drug Level Monitor Each IJ 04/12/25 05:31 1XONLY ONE Diazepam 0 mg 04/06/25 08:17 Diazepam 10 Mg/2 Ml Disp.Syringe IV 05/06/25 08:16 Q2H PRN PRN CIWA SCORE Protocol Enoxaparin Sodium 40 mg 04/07/25 12:00 04/11/25 10:40 Enoxaparin Sodium 40 Mg/0.4 Ml Syringe SQ 05/07/25 11:59 40 mg DAILY ALYSSA Administration Metronidazole 500 mg in 100 mls @ 200 mls/hr 04/07/25 12:00 04/12/25 05:17 Flagyl 500 Mg Ivpb IV 05/07/25 11:59 200 mls/hr Q6HT ALYSSA Administration Piperacillin Sod/Tazobactam 100 mls @ 200 mls/hr 04/10/25 12:00 04/11/25 23:35 Sod 3.375 gm/ Sodium Chloride IV 04/13/25 11:59 200 mls/hr Q6HT ALYSSA Administration Vancomycin HCl 1 gm in 200 mls @ 125 mls/hr 04/11/25 12:00 04/12/25 00:16 Vancomycin 1 Gram/200 Ml Bag IV 05/11/25 11:59 125 mls/hr Q6HT ALYSSA Administration Nicotine 21 mg 04/06/25 12:30 04/11/25 10:41 Nicotine 21 Mg/Patch Patch TOP 05/06/25 12:29 21 mg Q24H10 ALYSSA Administration Ondansetron HCl 4 mg 04/06/25 08:13 Ondansetron Hcl 4 Mg/2 Ml Vial IV 05/06/25 08:12 Q6H PRN PRN NAUSEA/VOMITING Pantoprazole Sodium 40 mg 04/06/25 10:00 04/11/25 22:55 Pantoprazole 40 Mg Vial IV 05/06/25 09:59 40 mg BID ALYSSA Administration Asmanex Hfa Inhaler 1 each 04/08/25 07:00 04/11/25 19:06 IH 05/08/25 06:59 1 each BIDRT ALYSSA Administration Stiolto Respimat 2 each 04/08/25 19:00 04/11/25 19:06 Inhaler IH 05/08/25 18:59 2 each 1900 ALYSSA Administration Discontinued Medications Generic Name Dose Route Start Last Admin Trade Name Freq PRN Reason Stop Dose Admin Albuterol/Ipratropium 3 ml 04/06/25 03:34 04/06/25 03:43 Ipratropium/Albuterol Sulfate 3 Ml Ampul.Neb IH 04/06/25 03:35 3 ml STAT ONE Administration Albuterol/Ipratropium Confirm 04/06/25 03:42 Ipratropium/Albuterol Sulfate 3 Ml Ampul.Neb Administered 04/06/25 03:43 Dose 3 ml IH .STK-MED ONE Azithromycin 250 mg 04/06/25 10:00 04/06/25 10:42 Azithromycin 250 Mg Tablet PO 04/09/25 10:01 Not Given DAILY ALYSSA Bisacodyl 10 mg 04/09/25 14:13 04/09/25 14:58 Bisacodyl 10 Mg Supp.Rect LA 04/09/25 14:14 10 mg STAT ONE Administration Bisacodyl 10 mg 04/09/25 18:00 04/09/25 18:01 Bisacodyl 10 Mg Supp.Rect LA 04/09/25 18:01 10 mg ONCE ONE Administration Bupivacaine HCl Confirm 04/06/25 05:06 Bupivacaine Hcl 2.5 Mg/Ml 10 Ml Administered 04/06/25 05:07 Dose 10 ml .ROUTE .STK-MED ONE Methylprednisolone Sodium 0 mg 04/06/25 10:00 04/06/25 10:12 Succinate 20 mg/ Sterile Water IV 05/06/25 09:59 20 mg 1 ml Q12HT ALYSSA Administration Device 1 04/11/25 05:30 04/11/25 08:17 Therapuetic Drug Level Monitor Each IJ 04/11/25 05:31 1 1XONLY ONE Administration Dexamethasone Sodium Phosphate Confirm 04/06/25 04:36 Dexamethasone Sodium Phosphate 4 Mg/Ml Vial Administered 04/06/25 04:37 Dose 8 mg .ROUTE .STK-MED ONE Fentanyl Citrate Confirm 04/06/25 04:35 Fentanyl Citrate 100 Mcg/2 Ml* Vial Administered 04/06/25 04:36 Dose 200 mcg .ROUTE .STK-MED ONE Hydromorphone HCl 1 mg 04/06/25 00:33 04/06/25 00:48 Hydromorphone 1 Mg/1ml Inj IV 04/06/25 00:34 1 mg STAT ONE Administration Hydromorphone HCl Confirm 04/06/25 00:46 Hydromorphone 1 Mg/1ml Inj Administered 04/06/25 00:47 Dose 1 mg .ROUTE .STK-MED ONE Hydromorphone HCl 1 mg 04/06/25 03:21 04/06/25 03:28 Hydromorphone 1 Mg/1ml Inj IV 04/06/25 03:22 1 mg STAT ONE Administration Hydromorphone HCl Confirm 04/06/25 03:26 Hydromorphone 1 Mg/1ml Inj Administered 04/06/25 03:27 Dose 1 mg .ROUTE .STK-MED ONE Sodium Chloride 1,000 mls @ 999 mls/hr 04/06/25 00:33 04/06/25 01:47 Sodium Chloride 0.9% 1000 Ml IV 04/06/25 01:33 Infused .Q1H1M STA Infusion Sodium Chloride Confirm 04/06/25 00:46 Sodium Chloride 0.9% 1000 Ml Administered 04/06/25 00:47 Dose 1,000 mls @ ud .ROUTE .STK-MED ONE Piperacillin Sod/Tazobactam 100 mls @ 200 mls/hr 04/06/25 03:17 04/06/25 03:39 Sod 3.375 gm/ Sodium Chloride IV 04/06/25 03:46 200 mls/hr STAT STA 200 mls/hr Administration Sodium Chloride Confirm 04/06/25 03:32 Sodium Chloride 0.9% Administered 04/06/25 03:33 Dose 100 mls @ ud .ROUTE .STK-MED ONE Sodium Chloride Confirm 04/06/25 03:39 Sodium Chloride 0.9% 1000 Ml Administered 04/06/25 03:40 Dose 1,000 mls @ ud .ROUTE .STK-MED ONE Sodium Chloride 1,000 mls @ 100 mls/hr 04/06/25 03:45 04/06/25 03:40 Sodium Chloride 0.9% 1000 Ml IV 05/06/25 03:44 100 mls/hr .Q10H ALYSSA Administration Acetaminophen Confirm 04/06/25 04:54 Ofirmev Administered 04/06/25 04:55 Dose 100 mls @ ud IV .STK-MED ONE Lactated Ringer's Confirm 04/06/25 05:49 Lactated Ringers Administered 04/06/25 05:50 Dose 1,000 mls @ ud IV .STK-MED ONE Potassium Chloride/Dextrose/Sod Cl 1,000 mls @ 50 mls/hr 04/06/25 08:30 04/11/25 08:16 D5w/0.45ns W/ 20meq Kcl 1000 Ml IV 05/06/25 08:29 Not Given .Q20H ALYSSA Cefoxitin Sodium 2 gm in 100 mls @ 200 mls/hr 04/06/25 09:00 04/10/25 00:36 Cefoxitin 2 Gm/100 Ml Nacl Ivpb IV 05/06/25 08:59 200 mls/hr Q8H ALYSSA Administration Vancomycin HCl 500 mg/ Sodium 100 mls @ 100 mls/hr 04/10/25 12:00 04/11/25 07:04 Chloride IV 05/10/25 11:59 100 mls/hr Q6HT ALYSSA Administration Ketamine HCl Confirm 04/06/25 05:11 Ketamine Hcl 50 Mg/Ml Administered 04/06/25 05:12 Dose 50 mg .ROUTE .STK-MED ONE Lidocaine HCl Confirm 04/06/25 04:35 Lidocaine - Mpf 2% 5 Ml Vial Administered 04/06/25 04:36 Dose 10 ml .ROUTE .STK-MED ONE Magnesium Sulfate Confirm 04/06/25 04:54 Magnesium Sulfate Injection Administered 04/06/25 04:55 Dose 1 gm .ROUTE .STK-MED ONE Methylprednisolone 4 mg 04/06/25 08:30 Methylprednisolone 4 Mg Packet PO 05/06/25 08:29 UD [facility] Midazolam HCl Confirm 04/06/25 05:12 Midazolam Hcl 2 Mg/2 Ml Vial Administered 04/06/25 05:13 Dose 2 mg .ROUTE .STK-MED ONE Miscellaneous Information 1 each 04/06/25 08:30 Medication Intervention 1 Each Each 05/06/25 08:29 .RT TO CHECK [facility] Miscellaneous Information 1 each 04/06/25 13:00 Medication Intervention 1 Each Each 05/06/25 12:59 .RT TO CHECK ALYSSA Morphine Sulfate 2 mg 04/06/25 08:12 04/10/25 21:33 Morphine Sulfate 2 Mg/Ml Inj IV 04/11/25 08:11 2 mg Q2H PRN PRN Administration PAIN Non-Formulary Medication 1 each 04/10/25 09:15 Pharmacy Dose Request: Vancomycin 1 Each IV 05/10/25 09:14 [facility] Ondansetron HCl 4 mg 04/06/25 00:35 04/06/25 00:48 Ondansetron Hcl 4 Mg/2 Ml Vial IV 04/06/25 00:36 4 mg STAT ONE Administration Ondansetron HCl Confirm 04/06/25 00:46 Ondansetron Hcl 4 Mg/2 Ml Vial Administered 04/06/25 00:47 Dose 4 mg .ROUTE .STK-MED ONE Ondansetron HCl Confirm 04/06/25 04:35 Ondansetron Hcl 4 Mg/2 Ml Vial Administered 04/06/25 04:36 Dose 8 mg .ROUTE .STK-MED ONE Pantoprazole Sodium 40 mg 04/06/25 10:00 Protonix (Pantoprazole) 40 Mg Tablet PO 05/06/25 09:59 QAM ALYSSA Piperacillin Sod/Tazobactam Sod Confirm 04/06/25 03:26 Piperacillin/Tazobactam Sodium 3.375 Gm Vial Administered 04/06/25 03:27 Dose 3.375 gm IV .STK-MED ONE Piperacillin Sod/Tazobactam Sod Confirm 04/11/25 18:01 Piperacillin/Tazobactam Sodium 3.375 Gm Vial Administered 04/11/25 18:02 Dose 3.375 gm IV .STK-MED ONE Propofol Confirm 04/06/25 04:35 Propofol 200 Mg/20 Ml Vial Administered 04/06/25 04:36 Dose 400 mg IV .STK-MED ONE Rocuronium [place] Confirm 04/06/25 04:35 Rocuronium [place] 50 Mg/5 Ml Vial Administered 04/06/25 04:36 Dose 100 mg IV .STK-MED ONE Sugammadex Sodium Confirm 04/06/25 04:35 Sugammadex Sodium 200 Mg/2 Ml Vial Administered 04/06/25 04:36 Dose 400 mg IV .STK-MED ONE Vasopressin Confirm 04/06/25 04:54 Vasopressin 20 Unit/Ml Ml Administered 04/06/25 04:55 Dose 20 unit .ROUTE .STK-MED ONE Multi-Disciplinary Progress Notes: Multi-Disciplinary Progress Notes 04/11/25 09:45 Pharmacy Note by Osmani Munguia Pharmacokinetic dosing service Weight: 70 Kilograms Vancomycin single level analysis: Current dose being given: 500 mg Current dosing interval: 6 hrs Current infusion time (hrs): 1 Single level Trough Data: Trough level obtained: 6.23 mcg/ml Timing of trough - # of hrs before next dose: 0.5 Hrs Desired peak: 25 mcg/ml Desired trough: 15 mcg/ml Estimated PK Parameters: New rate constant (yue): 0.176 hr-1 Half-life: 3.94 Hours Vd from levels: 49.00 Liters (0.7 L/kg) CLvanco= 8.624 L/hr Estimated New Dose and Interval Recommended dose: 663.5 mg Recommended interval: 3.9 Hrs Patient response: Patient is responding to treatment [yes/no] wbc decreasing, S/SX reduced [yes/no] Renal function is stable/unstable Recommendations: Give Vancomycin 1000 mg q 6 hrs. Infuse over 1.5 hrs Expected Cpeak: 27.5 mcg/mL Expected Ctrough: 12.5 mcg/mL AUC 0-24 /WILLIE Data: WILLIE 0.5 mcg/mL: AUC/WILLIE: 927.6 WILLIE 1.0 mcg/mL: AUC/WILLIE: 463.8 Recommended labs and intervals: Measure Bun and Scr 3 times/week. Renal dosing of other antibiotics (review renal dosing of other medications and list guidelines here): Thank you for the consult, will continue to follow. Signature:KALEE NEXT TROUGH DUE 04/12 @ 0530 Initialized on 04/11/25 09:45 - END OF NOTE Assessment/Plan (1) Perforated gastric ulcer Current Visit: Yes Status: Acute Assessment & Plan: CTA abdomen showing new free intraperitoneal air and focal pyloric wall discontinuity with adjacent air, consistent with perforation. POD#2 after Claude patch repair and gastrojejunostomy. NPO with NG to LIS. -(-)BS/BM/flatulence -Up in chair/ambulating today -IVF D5, 1/2NS, KCL Cefoxitin per general surgery. IV morphine for pain control. Continued IV fluids; monitoring CBC/CMP. Close coordination with general surgery; serial abdominal exams. -WBC at 16.2 -LA WNL -Add Flagyl -DC phelan cath 04/08: -WBC downtrending at 11.2 -Continue Cefoxitin/Flagyl -+flatulence (-)BM, +BS x 4 quads -Continue IVF -Continue NG to LIS -Surgery following appreciate recs -CMP reviewed and stable -Dressing changes per surgery -Continue to ambulate, IS, Flutter, Up in chair 04/10: -WBC now at 10.1 -Cefoxitin discontinued - vanc/zosyn ordered for HAP - continue flagyl -Surgery to evaluate for possible scopes -+BM today -NG discontinued 04/09 -NPO with ice chips -Encourage IS and flutter -Continue IVF - advance diet per surg recs 04/11: -Surgery following Diet advanced to CLD diet and PO meds to resume -resume po meds -dc IVF per surgery -encourage ambulation/up in chair -IS/flutter 04/12: -Advanced to FLD -Pain controlled -IS/ Flutter -Oxygen at 12L oxymask- improving spo2 at 96%- titrate as appropriate Code(s): K25.5 - CHRONIC OR UNSPECIFIED GASTRIC ULCER WITH PERFORATION (2) Perforated abdominal viscus Current Visit: Yes Status: Acute Assessment & Plan: CTA findings of pneumoperitoneum involving lesser sac, hepatic surface, and mid-abdomen consistent with hollow viscus perforation. Confirmed intraoperatively. POD#2 postoperative management. Maintain NG decompression, NPO status, and IV antibiotics. Monitor for postoperative complications (leak, abscess, sepsis). Serial labs and abdominal assessments. Code(s): R19.8 - OTH SYMPTOMS AND SIGNS INVOLVING THE DGSTV SYS AND ABDOMEN Pneumonia- HAP -Increased oxygen requirements 40L HF at 75% -CTA negative for PE, showing No evidence of pulmonary embolism, unchanged.New bilateral lower lobar consolidations and mild pleural effusion, possible infectious process/ pneumonic patches should be considered, clinical and lab correlation needed -WBC improved at 10.1 -Vanc/zosyn for HAP -sputum culture -MRSA nares - if negative can dc vanc -continue IS/Flutter -Fever 100.4- tylenol given 04/11: -MRSA via nares not detected -Sputum culture with gram + rods -Continue vanc/Zosyn/flagyl - follow culture -Oxygen at 40L HF - now at 15L oxymask -Afebrile overnight 04/12: -Sputum culture with pseudomonas- dc vanc and continue Zosyn/flagyl -Oxygenation improved at 12L oxymask down from 15L with spo2 at 96%-titrate as appropriate -WBC at 10.1 -Febrile of 100.1 overnight Weakness -Physical/Occupational Therapy Daily PT/OT to improve strength, mobility, and ADL independence. -Progressive Mobilization Ambulate with assistance; increase distance as tolerated. -Fall Precautions Bed/chair alarms, close supervision during transfers. -Discharge Planning SNF rehab recommended for continued strengthening and functional recovery. (3) Abdominal pain Current Visit: Yes Status: Acute Assessment & Plan: Directly related to perforation and peritonitis. Managed through surgical repair. Analgesia with IV morphine due to NPO status. Code(s): R10.9 - UNSPECIFIED ABDOMINAL PAIN (4) Dehydration Current Visit: Yes Status: Acute Assessment & Plan: Elevated anion gap (17.5) and initial lactate elevation consistent with volume depletion - now WNL Responded to IV fluids with lactate improvement from 2.2 - 1.1. Continued hydration with IV fluids and electrolyte monitoring. 04/08: -Resolved, Gap at 10.1, Co2 at 24 -Continue IVF per surgery Code(s): E86.0 - DEHYDRATION (5) COPD (chronic obstructive pulmonary disease) Current Visit: Yes Status: Chronic Assessment & Plan: CTA chest showing stable diffuse emphysema. Initially required BiPAP postop; now on 8 L oxymizer at 90%, baseline 3 L. DuoNebs and continuation of home inhalers Maintain goal oxygen saturation greater than 90%; avoid hyperoxia. (6) Chronic back pain Current Visit: Yes Status: Chronic Assessment & Plan: No routine home regimen documented. IV morphine currently used since NPO. Transition to PO pain meds when allowable. Code(s): M54.9 - DORSALGIA, UNSPECIFIED; G89.29 - OTHER CHRONIC PAIN (7) RLS (restless legs syndrome) Current Visit: Yes Status: Chronic Assessment & Plan: No home medications. Iron studies pending. Symptomatic measures once PO allowed. (8) Lactic acidosis Current Visit: Yes Status: Resolved Assessment & Plan: Initial 2.2 improved to 1.1 with IV fluids. No evidence of sepsis. Continued hydration and monitoring for clinical change. Code(s): E87.20 - ACIDOSIS, UNSPECIFIED (9) AA (alcohol abuse) Current Visit: No Status: Acute Assessment & Plan: History of 6 beers daily; level <10 today. At risk for withdrawal in postoperative period. CIWA monitoring and withdrawal precautions in place. Adequate fluids and supportive care; thiamine as needed. Counseling provided. 04/12: -No issues- continue CIWA monitoring Code(s): F10.10 - ALCOHOL ABUSE, UNCOMPLICATED (10) Tobacco abuse Current Visit: No Status: Chronic Assessment & Plan: Heavy long-term use (34 PPD). Nicotine patch for withdrawal. Reinforced cessation counseling. VTE: Lovenox PPI: Protonix Dispo: 2-5 days pending surgery eval Code status: Full code Plan of care time spent > 40 mins Code(s): K25.5 - CHRONIC OR UNSPECIFIED GASTRIC ULCER WITH PERFORATION Code(s): K25.5 - CHRONIC OR UNSPECIFIED GASTRIC ULCER WITH PERFORATION (2) Perforated abdominal viscus Current Visit: Yes Status: Acute Code(s): R19.8 - OTH SYMPTOMS AND SIGNS INVOLVING THE DGSTV SYS AND ABDOMEN (3) Abdominal pain Current Visit: Yes Status: Acute Code(s): R10.9 - UNSPECIFIED ABDOMINAL PAIN (4) Dehydration Current Visit: Yes Status: Acute Code(s): E86.0 - DEHYDRATION (5) COPD (chronic obstructive pulmonary disease) Current Visit: Yes Status: Chronic (6) Chronic back pain Current Visit: Yes Status: Chronic Code(s): M54.9 - DORSALGIA, UNSPECIFIED; G89.29 - OTHER CHRONIC PAIN (7) RLS (restless legs syndrome) Current Visit: Yes Status: Chronic (8) Lactic acidosis Current Visit: Yes Status: Resolved Code(s): E87.20 - ACIDOSIS, UNSPECIFIED (9) AA (alcohol abuse) Current Visit: No Status: Acute Code(s): F10.10 - ALCOHOL ABUSE, UNCOMPLICATED (10) Tobacco abuse Current Visit: No Status: Chronic Code(s): Z72.0 - TOBACCO USE (11) Weakness Current Visit: Yes Status: Acute Code(s): R53.1 - WEAKNESS
[2025-04-12 06:06] LABS: Hematocrit 31.4 % (40.1-51.0); Hemoglobin 9.5 g/dL (13.7-17.5); Mean Corpuscular Hemoglobin 26.4 pg (25.7-32.2); Mean Corpuscular Hgb Concent. 30.3 g/dL (32.3-36.5); Platelet Count 283 x10^3/uL (163-337); Red Blood Count 3.60 x10^6/uL (4.63-6.08); White Blood Count 10.1 x10^3/uL (4.23-9.07)
[2025-04-12 06:34] LABS: Calcium 8.6 mg/dL (8.4-10.2); Carbon Dioxide 20.0 mmol/L (22-30); Creatinine 1 0.63 mg/dL (0.66-1.25); EST GLOMERULAR FILTRATION RATE 101.7 ML/MIN; Glucose 90.0 mg/dL (74-106); Potassium 3.6 mmol/L (3.5-5.1); SGOT/AST 40.0 U/L (17-59); SGPT/ALT 16.0 U/L (0-50); Total Protein 6.2 g/dL (6.3-8.2)
[2025-04-12 07:19] LABS: BAND 1 % (0.0-2.0); Total Cells Counted 100
[2025-04-12] MEDS: TROUGH DRUG LEVELS IJ ONE ×2 (08:50→19:36)
[2025-04-13 05:21] LABS: Hematocrit 30.7 % (40.1-51.0); Hemoglobin 9.2 g/dL (13.7-17.5); Mean Corpuscular Hemoglobin 26.7 pg (25.7-32.2); Mean Corpuscular Hgb Concent. 30.0 g/dL (32.3-36.5); Platelet Count 311 x10^3/uL (163-337); Red Blood Count 3.45 x10^6/uL (4.63-6.08); White Blood Count 8.2 x10^3/uL (4.23-9.07)
[2025-04-13 05:59] LABS: Calcium 8.6 mg/dL (8.4-10.2); Carbon Dioxide 21.0 mmol/L (22-30); Creatinine 1 0.63 mg/dL (0.66-1.25); EST GLOMERULAR FILTRATION RATE 101.7 ML/MIN; Glucose 103.0 mg/dL (74-106); Potassium 3.4 mmol/L (3.5-5.1); SGOT/AST 29.0 U/L (17-59); SGPT/ALT 18.0 U/L (0-50); Total Protein 6.0 g/dL (6.3-8.2)
--- NOTE | 2025-04-13 07:35 | PROG NOTE ---
Postop day 5 Claude patch and gastrojejunal bypass. He has had 3 bowel movements. His abdomen is soft. His incision is dry. His NG has been out about 18 hours. He is basically breathing better. His O2 is over an 1 inch from his nose, and I think he is tolerating this satisfactorily. It is hard to get him over 90% on the oximeter, however. He certainly has severe COPD and he was told that he has some touch of pneumonia. We will start his diet, advance fairly slow. Start him on clear liquids today.
[2025-04-13 08:23] LABS: Total Cells Counted 100
--- NOTE | 2025-04-13 10:19 | XRAY ---
Indication: Progression pleural effusions. Comparison: April 10, 2025 Portable chest again demonstrates mild/moderate bibasilar infiltrates/atelectasis/effusions, worsened on left. Remaining heart and upper lungs unremarkable.
[2025-04-13 11:57] LABS: INR 1.12 (0.8-3.0); PROTIME 12.5 SECONDS (9.4-12.5)
--- NOTE | 2025-04-13 15:04 | XRAY ---
Indication: Left pleural effusion. Informed consent obtained. Initial ultrasound of the left lower back performed for localization. The back was prepped and draped in sterile fashion. 1% lidocaine plain was used for local anesthesia. Tiny skin incision made. 5 [employer] paracentesis needle/catheter was then percutaneously inserted. Once fluid was aspirating, the outer catheter was then advanced with the inner needle removed. Catheter was connected to a Vacutainer. Approximately 700 cc of clear jorje colored fluid aspirated and was disposed of properly. Approximately 50 cc was sent to laboratory for analysis as ordered by the clinician. Repeat sonogram demonstrates near complete aspiration. Catheter removed. Hemostasis achieved using digital pressure over the puncture site. Band-Aid applied over the puncture site. Postthoracentesis chest radiograph pending. Impression: Technically successful ultrasound guided left thoracentesis for both diagnostic and therapeutic purpose. No immediate complications or blood loss.
--- NOTE | 2025-04-13 15:06 | XRAY ---
Indication: Status post left thoracentesis. Comparison: Taken earlier in the day. Portable chest obtained in expiration demonstrates marked improvement left base effusion with tiny residual consistent with recent thoracentesis. No pneumothorax. Stable mild right base infiltrate/atelectasis/effusion. Remaining heart and lungs unremarkable. No new cardiopulmonary abnormalities.
--- NOTE | 2025-04-13 15:27 | PCM.NOTE ---
Date and Time: 04/13/25 1523 Subjective Assessment: Mr. Patel is a 69-year-old male with COPD, emphysema, restless leg syndrome, chronic back pain, heavy alcohol use, and heavy tobacco use was admitted on 04/05/25 with severe epigastric pain. Imaging revealed free intraperitoneal air and a perforated gastric ulcer, for which he underwent emergent Claude patch repair with gastrojejunostomy. Postoperatively, he required BiPAP but was later weaned to nasal cannula, remained NPO, and was started on IV antibiotics and pain control. His course was complicated by hospital-acquired pneumonia, requiring escalation to vancomycin, Zosyn, and Flagyl. By 04/11, he was tolerating a clear liquid diet, had mild incisional pain, and remained afebrile, though he continued to experience significant weakness and functional decline, prompting recommendation for SNF rehabilitation. On 04/12, his oxygen requirement decreased to 12 L via Oxymizer, cough and sputum production improved, and sputum cultures confirmed Pseudomonas, allowing discontinuation of vancomycin while continuing Zosyn and Flagyl. On 04/13, chest x-ray showed increased left pleural effusion, and thoracentesis removed 700 mL. Labs revealed hemoglobin 9.2, normalized potassium at 3.4, and WBC within normal range. He remains on 12 L Oxymizer with oxygen saturation of 97%, reports feeling better aside from dyspnea, and is medically stable from a surgical standpoint but not yet ready for discharge due to poor oxygenation. Case management is arranging post-acute rehabilitation placement. - Review of Systems Constitutional: No Fever, No Chills Eyes: No Symptoms Ears, Nose, & Throat: No Symptoms Respiratory: Short Of Breath, No Cough Cardiac: No Chest Pain, No Edema, No Syncope Abdominal/Gastrointestinal: No Abdominal Pain, No Nausea, No Vomiting, No Diarrhea Genitourinary Symptoms: No Dysuria Musculoskeletal: No Back Pain, No Neck Pain Skin: No Rash Neurological: No Dizziness, No Focal Weakness, No Sensory Changes Psychological: No Symptoms Endocrine: No Symptoms Hematologic/Lymphatic: No Symptoms Immunological/Allergic: No Symptoms Objective Exam General Appearance: no apparent distress, alert Neurologic Exam: alert, 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, cooperative, normal mood/affect, nml cerebellar function, sensation nml, No motor deficits Skin Exam: normal color, warm, dry Wound Assessment: Skin/Wound Assessment Wound/Incision Assessment Start: 04/06/25 07:58 Text: Status: Active Freq: Q4H Protocol: Document 04/13/25 11:14 [facility] (Rec: 04/13/25 11:14 [facility] [id number]) Wound/Incision Assessment Abdomen Wound Assessment Shift Assessment Wound Type Incision Wound Stage Non Pressure Wound Dressing Status Dry & Intact Drainage Amount None Primary Dressing MEPILEX POST SURGICAL 4x10 DRESSING Comment Unable to assess, dressing CDI . Wound Photo Photo Taken No Eye Exam: PERRL, EOMI, eyes nml inspection Ears, Nose, Throat Exam: normal ENT inspection, pharynx normal, moist mucous membranes Neck Exam: normal inspection, non-tender, supple, full range of motion Respiratory Exam: diminished breath sounds, No respiratory distress Cardiovascular Exam: regular rate/rhythm, normal heart sounds Gastrointestinal/Abdomen Exam: soft, No tenderness, No mass Extremity Exam: normal inspection, normal range of motion Back Exam: normal inspection, normal range of motion, No CVA tenderness, No vertebral tenderness Male Genitalia Exam: deferred Rectal Exam: deferred Objective Data Vital Signs: Vital Signs - 24 hr Temp Pulse Resp BP Pulse Ox 04/13/25 11:57 98.6 F 92 H 16 151/70 99 04/13/25 11:12 18 04/13/25 10:52 85 24 98 04/13/25 08:00 24 04/13/25 07:18 98.4 F 83 16 146/69 97 04/13/25 06:27 79 18 99 04/13/25 04:00 98.3 F 86 24 133/65 94 L 04/13/25 01:52 81 22 97 04/12/25 23:50 98.1 F 82 24 135/64 97 04/12/25 19:58 83 16 96 04/12/25 19:40 97.8 F 87 18 132/64 99 04/12/25 16:06 94 H 18 91 L 04/12/25 16:00 98.6 F 89 22 126/61 95 Pain Assessment - Last Documented Pain Intensity [Abdomen] 1 Pain Intensity 0 Pain Scale Used 0-10 Pain Scale Intake and Output: Intake & Output 04/11/25 04/12/25 04/13/25 04/14/25 11:59 11:59 11:59 11:59 Intake Total 3321 3084 2202 800 Output Total 600 1875 1375 200 Balance 2721 1209 827 600 Lab Results: Lab Results-Last 24 Hours 04/12/25 04/13/25 04/13/25 Range/Units 17:30 05:05 05:05 WBC 8.2 (4.23-9.07) x10^3/uL RBC 3.45 L (4.63-6.08) x10^6/uL Hgb 9.2 L (13.7-17.5) g/dL Hct 30.7 L (40.1-51.0) % MCV 89.0 (79.0-92.2) fL MCH 26.7 (25.7-32.2) pg MCHC 30.0 L (32.3-36.5) g/dL RDW 17.1 H (11.6-14.4) % Plt Count 311 (163-337) x10^3/uL MPV 9.3 L (9.4-12.4) fL Segmented Neutrophils 72 H (34.0-67.9) % Lymphocytes (Manual) 21 L (21.8-53.1) % Monocytes (Manual) 6 (5.3-12.2) % Eosinophils (Manual) 1 (0.8-7.0) % Hypochromia 1+ Platelet Estimate NORMAL (NORMAL) RBC Morphology ABNORMAL Anisocytosis 1+ PT (9.4-12.5) SECONDS INR (0.8-3.0) Sodium 135 (135-145) mmol/L Potassium 3.4 L (3.5-5.1) mmol/L Chloride 106 (98-107) mmol/L Carbon Dioxide 21 L (22-30) mmol/L Anion Gap 11.2 (5-15) MEQ/L BUN 5 L (9-20) mg/dL Creatinine 0.63 L (0.66-1.25) mg/dL Estimated GFR 101.7 ML/MIN Glucose 103 (74-106) mg/dL Calcium 8.6 (8.4-10.2) mg/dL Magnesium 1.6 (1.6-2.3) mg/dL Total Bilirubin 0.40 (0.2-1.3) mg/dL AST 29 (17-59) U/L ALT 18 (0-50) U/L Alkaline Phosphatase 46 (38-126) U/L Serum Total Protein 6.0 L (6.3-8.2) g/dL Albumin 3.1 L (3.5-5.0) g/dL Vancomycin Trough 18.43 (10-20) ug/mL 04/13/25 Range/Units 06:00 WBC (4.23-9.07) x10^3/uL RBC (4.63-6.08) x10^6/uL Hgb (13.7-17.5) g/dL Hct (40.1-51.0) % MCV (79.0-92.2) fL MCH (25.7-32.2) pg MCHC (32.3-36.5) g/dL RDW (11.6-14.4) % Plt Count (163-337) x10^3/uL MPV (9.4-12.4) fL Segmented Neutrophils (34.0-67.9) % Lymphocytes (Manual) (21.8-53.1) % Monocytes (Manual) (5.3-12.2) % Eosinophils (Manual) (0.8-7.0) % Hypochromia Platelet Estimate (NORMAL) RBC Morphology Anisocytosis PT 12.5 (9.4-12.5) SECONDS INR 1.12 (0.8-3.0) Sodium (135-145) mmol/L Potassium (3.5-5.1) mmol/L Chloride (98-107) mmol/L Carbon Dioxide (22-30) mmol/L Anion Gap (5-15) MEQ/L BUN (9-20) mg/dL Creatinine (0.66-1.25) mg/dL Estimated GFR ML/MIN Glucose (74-106) mg/dL Calcium (8.4-10.2) mg/dL Magnesium (1.6-2.3) mg/dL Total Bilirubin (0.2-1.3) mg/dL AST (17-59) U/L ALT (0-50) U/L Alkaline Phosphatase (38-126) U/L Serum Total Protein (6.3-8.2) g/dL Albumin (3.5-5.0) g/dL Vancomycin Trough (10-20) ug/mL Radiology Exams: Radiology Procedures Category Date Time Status CHEST 1 VIEW (PORTABLE) Routine Exams 04/13/25 09:59 Completed CHEST 1 VIEW (PORTABLE) Stat Exams 04/13/25 14:36 Completed THORACENTESIS [US] Routine Exams 04/13/25 11:32 Completed Medications: Medications Generic Name Dose Route Start Last Admin Trade Name Freq PRN Reason Stop Dose Admin Acetaminophen 650 mg 04/10/25 11:51 04/10/25 12:21 Acetaminophen 650 Mg Supp.Rect NV 05/10/25 11:50 650 mg Q4H PRN PRN Administration PAIN AND/OR FEVER Acetaminophen 650 mg 04/11/25 08:40 04/12/25 23:27 Acetaminophen 325 Mg Tablet PO 05/11/25 08:39 650 mg Q4H PRN PRN Administration PAIN AND/OR FEVER Hydrocodone Bitart/Acetaminophen 1 tab 04/11/25 08:33 Hydrocodone/Apap 5/325 1 Tab Tablet PO 04/16/25 08:32 Q4H PRN PRN PAIN Albuterol Sulfate 2.5 mg 04/06/25 08:18 04/13/25 01:52 Albuterol Sulfate 2.5 Mg/3 Ml Neb 05/06/25 08:17 2.5 mg Q4HPRN PRN Administration SHORTNESS OF BREATH/WHEEZING Albuterol Sulfate 2 puff 04/06/25 08:30 Albuterol Common Canister Inhaler 05/06/25 08:29 Q4H PRN PRN Albuterol/Ipratropium 3 ml 04/06/25 11:00 04/13/25 10:51 Ipratropium/Albuterol Sulfate 3 Ml Ampul.formerly [facility] 05/06/25 10:59 3 ml QIDRT ALYSSA Administration Device 1 04/14/25 09:30 Therapuetic Drug Level Monitor Each IJ 04/14/25 09:31 1XONLY ONE Diazepam 0 mg 04/06/25 08:17 Diazepam 10 Mg/2 Ml Disp.Syringe IV 05/06/25 08:16 Q2H PRN PRN CIWA SCORE Protocol Enoxaparin Sodium 40 mg 04/07/25 12:00 04/13/25 11:35 Enoxaparin Sodium 40 Mg/0.4 Ml Syringe SQ 05/07/25 11:59 Not Given DAILY ALYSSA Metronidazole 500 mg in 100 mls @ 200 mls/hr 04/07/25 12:00 04/13/25 11:53 Flagyl 500 Mg Ivpb IV 05/07/25 11:59 200 mls/hr Q6HT ALYSSA Administration Piperacillin Sod/Tazobactam 100 mls @ 200 mls/hr 04/13/25 12:00 04/13/25 12:17 Sod 3.375 gm/ Sodium Chloride IV 04/16/25 11:59 200 mls/hr Q6HT ALYSSA Administration Vancomycin HCl 1 gm in 200 mls @ 125 mls/hr 04/13/25 22:00 Vancomycin 1 Gram/200 Ml Bag IV 05/13/25 21:59 Q12HT ALYSSA Nicotine 21 mg 04/06/25 12:30 04/13/25 09:19 Nicotine 21 Mg/Patch Patch TOP 05/06/25 12:29 21 mg Q24H10 ALYSSA Administration Ondansetron HCl 4 mg 04/06/25 08:13 Ondansetron Hcl 4 Mg/2 Ml Vial IV 05/06/25 08:12 Q6H PRN PRN NAUSEA/VOMITING Pantoprazole Sodium 40 mg 04/06/25 10:00 04/13/25 09:19 Pantoprazole 40 Mg Vial IV 05/06/25 09:59 40 mg BID ALYSSA Administration Asmanex Hfa Inhaler 1 each 04/08/25 07:00 04/13/25 06:25 IH 05/08/25 06:59 1 each BIDRT ALYSSA Administration Stiolto Respimat 2 each 04/08/25 19:00 04/12/25 20:00 Inhaler IH 05/08/25 18:59 2 each 1900 ALYSSA Administration Discontinued Medications Generic Name Dose Route Start Last Admin Trade Name Freq PRN Reason Stop Dose Admin Albuterol/Ipratropium 3 ml 04/06/25 03:34 04/06/25 03:43 Ipratropium/Albuterol Sulfate 3 Ml Ampul.Neb IH 04/06/25 03:35 3 ml STAT ONE Administration Albuterol/Ipratropium Confirm 04/06/25 03:42 Ipratropium/Albuterol Sulfate 3 Ml Ampul.Neb Administered 04/06/25 03:43 Dose 3 ml IH .STK-MED ONE Azithromycin 250 mg 04/06/25 10:00 04/06/25 10:42 Azithromycin 250 Mg Tablet PO 04/09/25 10:01 Not Given DAILY ALYSSA Bisacodyl 10 mg 04/09/25 14:13 04/09/25 14:58 Bisacodyl 10 Mg Supp.Rect NV 04/09/25 14:14 10 mg STAT ONE Administration Bisacodyl 10 mg 04/09/25 18:00 04/09/25 18:01 Bisacodyl 10 Mg Supp.Rect NV 04/09/25 18:01 10 mg ONCE ONE Administration Bupivacaine HCl Confirm 04/06/25 05:06 Bupivacaine Hcl 2.5 Mg/Ml 10 Ml Administered 04/06/25 05:07 Dose 10 ml .ROUTE .STK-MED ONE Methylprednisolone Sodium 0 mg 04/06/25 10:00 04/06/25 10:12 Succinate 20 mg/ Sterile Water IV 05/06/25 09:59 20 mg 1 ml Q12HT ALYSSA Administration Device 1 04/11/25 05:30 04/11/25 08:17 Therapuetic Drug Level Monitor Each IJ 04/11/25 05:31 1 1XONLY ONE Administration Device 1 04/12/25 05:30 04/12/25 08:50 Therapuetic Drug Level Monitor Each IJ 04/12/25 05:31 Not Given 1XONLY ONE Device 1 04/12/25 17:30 04/12/25 19:36 Therapuetic Drug Level Monitor Each IJ 04/12/25 17:31 Not Given 1XONLY ONE Dexamethasone Sodium Phosphate Confirm 04/06/25 04:36 Dexamethasone Sodium Phosphate 4 Mg/Ml Vial Administered 04/06/25 04:37 Dose 8 mg .ROUTE .STK-MED ONE Fentanyl Citrate Confirm 04/06/25 04:35 Fentanyl Citrate 100 Mcg/2 Ml* Vial Administered 04/06/25 04:36 Dose 200 mcg .ROUTE .STK-MED ONE Hydromorphone HCl 1 mg 04/06/25 00:33 04/06/25 00:48 Hydromorphone 1 Mg/1ml Inj IV 04/06/25 00:34 1 mg STAT ONE Administration Hydromorphone HCl Confirm 04/06/25 00:46 Hydromorphone 1 Mg/1ml Inj Administered 04/06/25 00:47 Dose 1 mg .ROUTE .STK-MED ONE Hydromorphone HCl 1 mg 04/06/25 03:21 04/06/25 03:28 Hydromorphone 1 Mg/1ml Inj IV 04/06/25 03:22 1 mg STAT ONE Administration Hydromorphone HCl Confirm 04/06/25 03:26 Hydromorphone 1 Mg/1ml Inj Administered 04/06/25 03:27 Dose 1 mg .ROUTE .STK-MED ONE Sodium Chloride 1,000 mls @ 999 mls/hr 04/06/25 00:33 04/06/25 01:47 Sodium Chloride 0.9% 1000 Ml IV 04/06/25 01:33 Infused .Q1H1M STA Infusion Sodium Chloride Confirm 04/06/25 00:46 Sodium Chloride 0.9% 1000 Ml Administered 04/06/25 00:47 Dose 1,000 mls @ ud .ROUTE .STK-MED ONE Piperacillin Sod/Tazobactam 100 mls @ 200 mls/hr 04/06/25 03:17 04/06/25 03:39 Sod 3.375 gm/ Sodium Chloride IV 04/06/25 03:46 200 mls/hr STAT STA 200 mls/hr Administration Sodium Chloride Confirm 04/06/25 03:32 Sodium Chloride 0.9% Administered 04/06/25 03:33 Dose 100 mls @ ud .ROUTE .STK-MED ONE Sodium Chloride Confirm 04/06/25 03:39 Sodium Chloride 0.9% 1000 Ml Administered 04/06/25 03:40 Dose 1,000 mls @ ud .ROUTE .STK-MED ONE Sodium Chloride 1,000 mls @ 100 mls/hr 04/06/25 03:45 04/06/25 03:40 Sodium Chloride 0.9% 1000 Ml IV 05/06/25 03:44 100 mls/hr .Q10H ALYSSA Administration Acetaminophen Confirm 04/06/25 04:54 Ofirmev Administered 04/06/25 04:55 Dose 100 mls @ ud IV .STK-MED ONE Lactated Ringer's Confirm 04/06/25 05:49 Lactated Ringers Administered 04/06/25 05:50 Dose 1,000 mls @ ud IV .STK-MED ONE Potassium Chloride/Dextrose/Sod Cl 1,000 mls @ 50 mls/hr 04/06/25 08:30 04/11/25 08:16 D5w/0.45ns W/ 20meq Kcl 1000 Ml IV 05/06/25 08:29 Not Given .Q20H ALYSSA Cefoxitin Sodium 2 gm in 100 mls @ 200 mls/hr 04/06/25 09:00 04/10/25 00:36 Cefoxitin 2 Gm/100 Ml Nacl Ivpb IV 05/06/25 08:59 200 mls/hr Q8H ALYSSA Administration Piperacillin Sod/Tazobactam 100 mls @ 200 mls/hr 04/10/25 12:00 04/13/25 05:09 Sod 3.375 gm/ Sodium Chloride IV 04/13/25 11:59 200 mls/hr Q6HT ALYSSA Administration Vancomycin HCl 500 mg/ Sodium 100 mls @ 100 mls/hr 04/10/25 12:00 04/11/25 07:04 Chloride IV 05/10/25 11:59 100 mls/hr Q6HT ALYSSA Administration Vancomycin HCl 1 gm in 200 mls @ 125 mls/hr 04/11/25 12:00 04/13/25 12:10 Vancomycin 1 Gram/200 Ml Bag IV 05/11/25 11:59 Not Given Q6HT ALYSSA Ketamine HCl Confirm 04/06/25 05:11 Ketamine Hcl 50 Mg/Ml Administered 04/06/25 05:12 Dose 50 mg .ROUTE .STK-MED ONE Lidocaine HCl Confirm 04/06/25 04:35 Lidocaine - Mpf 2% 5 Ml Vial Administered 04/06/25 04:36 Dose 10 ml .ROUTE .STK-MED ONE Magnesium Sulfate Confirm 04/06/25 04:54 Magnesium Sulfate Injection Administered 04/06/25 04:55 Dose 1 gm .ROUTE .STK-MED ONE Methylprednisolone 4 mg 04/06/25 08:30 Methylprednisolone 4 Mg Packet PO 05/06/25 08:29 [facility] Midazolam HCl Confirm 04/06/25 05:12 Midazolam Hcl 2 Mg/2 Ml Vial Administered 04/06/25 05:13 Dose 2 mg .ROUTE .STK-MED ONE Miscellaneous Information 1 each 04/06/25 08:30 Medication Intervention 1 Each Each 05/06/25 08:29 .RT TO CHECK [facility] Miscellaneous Information 1 each 04/06/25 13:00 Medication Intervention 1 Each Each 05/06/25 12:59 .RT TO CHECK ALYSSA Morphine Sulfate 2 mg 04/06/25 08:12 04/10/25 21:33 Morphine Sulfate 2 Mg/Ml Inj IV 04/11/25 08:11 2 mg Q2H PRN PRN Administration PAIN Non-Formulary Medication 1 each 04/10/25 09:15 Pharmacy Dose Request: Vancomycin 1 Each IV 05/10/25 09:14 [facility] Ondansetron HCl 4 mg 04/06/25 00:35 04/06/25 00:48 Ondansetron Hcl 4 Mg/2 Ml Vial IV 04/06/25 00:36 4 mg STAT ONE Administration Ondansetron HCl Confirm 04/06/25 00:46 Ondansetron Hcl 4 Mg/2 Ml Vial Administered 04/06/25 00:47 Dose 4 mg .ROUTE .STK-MED ONE Ondansetron HCl Confirm 04/06/25 04:35 Ondansetron Hcl 4 Mg/2 Ml Vial Administered 04/06/25 04:36 Dose 8 mg .ROUTE .STK-MED ONE Pantoprazole Sodium 40 mg 04/06/25 10:00 Protonix (Pantoprazole) 40 Mg Tablet PO 05/06/25 09:59 QAM [facility] Piperacillin Sod/Tazobactam Sod Confirm 04/06/25 03:26 Piperacillin/Tazobactam Sodium 3.375 Gm Vial Administered 04/06/25 03:27 Dose 3.375 gm IV .STK-MED ONE Piperacillin Sod/Tazobactam Sod Confirm 04/11/25 18:01 Piperacillin/Tazobactam Sodium 3.375 Gm Vial Administered 04/11/25 18:02 Dose 3.375 gm IV .STK-MED ONE Propofol Confirm 04/06/25 04:35 Propofol 200 Mg/20 Ml Vial Administered 04/06/25 04:36 Dose 400 mg IV .STK-MED ONE Rocuronium [place] Confirm 04/06/25 04:35 Rocuronium [place] 50 Mg/5 Ml Vial Administered 04/06/25 04:36 Dose 100 mg IV .STK-MED ONE Sugammadex Sodium Confirm 04/06/25 04:35 Sugammadex Sodium 200 Mg/2 Ml Vial Administered 04/06/25 04:36 Dose 400 mg IV .STK-MED ONE Vasopressin Confirm 04/06/25 04:54 Vasopressin 20 Unit/Ml Ml Administered 04/06/25 04:55 Dose 20 unit .ROUTE .STK-MED ONE Assessment/Plan (1) Perforated gastric ulcer Current Visit: Yes Status: Acute Assessment & Plan: - Advanced to FLD - Pain controlled - IS/ Flutter -Oxygen at 12L oxymask- improving spo2 at 96%- titrate as appropriate - Transition to soft diet per GS and advance as tolerated - + BM's- soft - OK to d/c per GS standpoint however pt has pneumonia and not ready to d/c yet. - PT eval Code(s): K25.5 - CHRONIC OR UNSPECIFIED GASTRIC ULCER WITH PERFORATION (2) Perforated abdominal viscus Current Visit: Yes Status: Acute Assessment & Plan: CTA findings of pneumoperitoneum involving lesser sac, hepatic surface, and mid-abdomen consistent with hollow viscus perforation. Confirmed intraoperatively. IV antibiotics. Monitor for postoperative complications (leak, abscess, sepsis). CBC, CMP reviewed Code(s): R19.8 - OTH SYMPTOMS AND SIGNS INVOLVING THE DGSTV SYS AND ABDOMEN (3) Abdominal pain Current Visit: Yes Status: Acute Assessment & Plan: - 2:2 plan above Code(s): R10.9 - UNSPECIFIED ABDOMINAL PAIN (4) Pneumonia Current Visit: No Status: Acute Assessment & Plan: - Sputum culture with pseudomonas- continue Zosyn/flagyl - Oxygenation at 12L oxymask down from 15L with spo2 at 97%-titrate as appropriate - WBC normalized - CBC, CMP reviewed - CXR: 04/13 Portable chest again demonstrates mild/moderate bibasilar infiltrates/atelectasis/effusions, worsened on left. Remaining heart and upper lungs unremarkable. - Thoracentesis ordered on left side - No Blood cultures ordered during visit. - Duonebs, Proventil, - Solu-medrol Q8 started today 04/13 Code(s): J18.9 - PNEUMONIA, UNSPECIFIED ORGANISM (5) COPD exacerbation Current Visit: No Status: Acute Assessment & Plan: - See pneumonia plan above Code(s): J44.1 - CHRONIC OBSTRUCTIVE PULMONARY DISEASE W (ACUTE) EXACERBATION (6) Pleural effusion Current Visit: Yes Status: Acute Assessment & Plan: - As seen on chest CT on 04/10: IMPRESSION: 1. No evidence of pulmonary embolism, unchanged. 2. New bilateral lower lobar consolidations and mild pleural effusion, possible infectious process/ pneumonic patches should be considered, clinical and lab correlation needed. -CXR: 04/13 Portable chest again demonstrates mild/moderate bibasilar infiltrates/atelectasis/effusions, worsened on left. Remaining heart and upper lungs unremarkable. - PT/INR - Thoracentesis labs ordered - US guided thoracentisis today with 700 ml out of left lung - Post procedure CXR: 04/13 Portable chest obtained in expiration demonstrates marked improvement left base effusion with tiny residual consistent with recent thoracentesis. No pneumothorax. Stable mild right base infiltrate/atelectasis/effusion. Remaining heart and lungs unremarkable. No new cardiopulmonary abnormalities. - O2 post procedure 96% oxymask at 12 L - RT to wean O2 as tolerated - BNP in AM - Lasix IV daily started - Consider thoracentesis in AM of Right lung - Echo in AM Code(s): J90 - PLEURAL EFFUSION, NOT ELSEWHERE CLASSIFIED (7) Dehydration Current Visit: Yes Status: Resolved Assessment & Plan: - resolved Code(s): E86.0 - DEHYDRATION (8) Tobacco abuse Current Visit: No Status: Chronic Assessment & Plan: Heavy long-term use (34 PPD). Nicotine patch for withdrawal. Reinforced cessation counseling. Code(s): Z72.0 - TOBACCO USE (9) Alcohol intoxication Current Visit: No Status: Resolved Assessment & Plan: Assessment & Plan: History of 6 beers daily CIWA monitoring and withdrawal precautions in place. Counseling provided. (10) RLS (restless legs syndrome) Current Visit: Yes Status: Chronic Assessment & Plan: No home medications. Iron studies reviewed (11) Chronic back pain Current Visit: Yes Status: Chronic Assessment & Plan: No routine home regimen documented. - [place] Q6 PRN Code(s): M54.9 - DORSALGIA, UNSPECIFIED; G89.29 - OTHER CHRONIC PAIN (12) Lactic acidosis Current Visit: Yes Status: Resolved Assessment & Plan: Initial 2.2 improved to 1.1 with IV fluids on admission No evidence of sepsis. Code(s): E87.20 - ACIDOSIS, UNSPECIFIED (13) Weakness Current Visit: Yes Status: Acute Assessment & Plan: -Physical/Occupational Therapy Daily PT/OT to improve strength, mobility, and ADL independence. -Progressive Mobilization Ambulate with assistance; increase distance as tolerated. -Fall Precautions Bed/chair alarms, close supervision during transfers. -Discharge Planning SNF rehab recommended for continued strengthening and functional recovery. VTE: Lovenox PPI: Protonix Dispo: 1-2 days Code status: Full code Plan of care time spent > 50 mins Code(s): R53.1 - WEAKNESS
[2025-04-13 15:40] LABS: BODY FLUID CLARITY SL HAZY (CLEAR); BODY FLUID COLOR YELLOW (COLORLESS)
[2025-04-13] MEDS: Lasix 20 MG/2 ML IV SCH (18:18)
[2025-04-13] MEDS ORDERED: Klor Con ONE (19:01)
[2025-04-13] MEDS: Klor Con PO ONE (19:02)
[2025-04-13] MEDS: solu-MEDROL 40 MG, Sterile H2O 10 ml 1 ML IV SCH (21:40)
[2025-04-13] MEDS ORDERED: VANCOMYCIN 1 GRAM/200 ML BAG 1 GM/200 ML PIGGYBACK IV SCH (22:00)
[2025-04-14 05:28] LABS: Hematocrit 31.0 % (40.1-51.0); Hemoglobin 9.5 g/dL (13.7-17.5); Mean Corpuscular Hemoglobin 26.5 pg (25.7-32.2); Mean Corpuscular Hgb Concent. 30.6 g/dL (32.3-36.5); Platelet Count 378 x10^3/uL (163-337); Red Blood Count 3.59 x10^6/uL (4.63-6.08); White Blood Count 6.6 x10^3/uL (4.23-9.07)
[2025-04-14 06:23] LABS: Calcium 8.5 mg/dL (8.4-10.2); Carbon Dioxide 24.0 mmol/L (22-30); Creatinine 1 0.62 mg/dL (0.66-1.25); EST GLOMERULAR FILTRATION RATE 102.2 ML/MIN; Glucose 133.0 mg/dL (74-106); NT PRO BNPII 464.0 pg/mL (<300); Potassium 3.6 mmol/L (3.5-5.1); SGOT/AST 29.0 U/L (17-59); SGPT/ALT 18.0 U/L (0-50); Total Protein 6.2 g/dL (6.3-8.2)
[2025-04-14] MEDS: MAG-OX 400 PO ONE (10:23)
[2025-04-14] MEDS: TROUGH DRUG LEVELS IJ ONE (11:16)
--- NOTE | 2025-04-14 12:57 | PCM.NOTE ---
Date and Time: 04/14/25 1240 Subjective Assessment: 04/13/25 Mr. Patel is a 69-year-old male with COPD, emphysema, restless leg syndrome, chronic back pain, heavy alcohol use, and heavy tobacco use was admitted on 04/05/25 with severe epigastric pain. Imaging revealed free intraperitoneal air and a perforated gastric ulcer, for which he underwent emergent Claude patch repair with gastrojejunostomy. Postoperatively, he required BiPAP but was later weaned to nasal cannula, remained NPO, and was started on IV antibiotics and pain control. His course was complicated by hospital-acquired pneumonia, requiring escalation to vancomycin, Zosyn, and Flagyl. By 04/11, he was tolerating a clear liquid diet, had mild incisional pain, and remained afebrile, though he continued to experience significant weakness and functional decline, prompting recommendation for SNF rehabilitation. On 04/12, his oxygen requirement decreased to 12 L via Oxymizer, cough and sputum production improved, and sputum cultures confirmed Pseudomonas, allowing discontinuation of vancomycin while continuing Zosyn and Flagyl. On 04/13, chest x-ray showed increased left pleural effusion, and thoracentesis removed 700 mL. Labs revealed hemoglobin 9.2, normalized potassium at 3.4, and WBC within normal range. He remains on 12 L Oxymizer with oxygen saturation of 97%, reports feeling better aside from dyspnea, and is medically stable from a surgical standpoint but not yet ready for discharge due to poor oxygenation. Case management is arranging post-acute rehabilitation placement. 04/14/25 The patient is sitting up in a chair today and reports feeling much better, expressing readiness for discharge to [facility] rehab once accepted. He requests that his son drive him to the facility, which case management has approved. Magnesium is low at 1.5 and has been replaced, with plans to continue trending. Respiratory status has improved significantly, as he transitioned from a high-flow oxymask at 12 L yesterday to 2 L nasal cannula today with oxygen saturation at 92%. This improvement followed thoracentesis yesterday, during which 700 mL was removed from the left lung. Post-procedure chest x-ray showed a mild right effusion, and Lasix 20 mg daily was initiated, resulting in improved breathing. Echocardiogram results remain pending. He is tolerating a soft diet and prefers not to advance at this time. Surgery has signed off, and discharge is appropriate from the hospitalist standpoint. White blood cell count is normal today. Outpatient follow-up with pulmonology is required, along with repeat labs this Sunday and a chest x-ray to monitor pleural effusion status. The patient currently denies any further concerns. - Review of Systems Constitutional: No Fever, No Chills Eyes: No Symptoms Ears, Nose, & Throat: No Symptoms Respiratory: No Cough, No Short Of Breath Cardiac: No Chest Pain, No Edema, No Syncope Abdominal/Gastrointestinal: No Abdominal Pain, No Nausea, No Vomiting, No Diarrhea Genitourinary Symptoms: No Dysuria Musculoskeletal: No Back Pain, No Neck Pain Skin: No Rash Neurological: No Dizziness, No Focal Weakness, No Sensory Changes Psychological: No Symptoms Endocrine: No Symptoms Hematologic/Lymphatic: No Symptoms Immunological/Allergic: No Symptoms Objective Exam General Appearance: no apparent distress, alert Neurologic Exam: alert, 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, cooperative, normal mood/affect, nml cerebellar function, sensation nml, No motor deficits Skin Exam: normal color, warm, dry Wound Assessment: Skin/Wound Assessment Wound/Incision Assessment Start: 04/06/25 07:58 Text: Status: Active Freq: Q4H Protocol: Document 04/14/25 07:00 [facility] (Rec: 04/14/25 10:10 [facility] [id number]) Wound/Incision Assessment Posterior Back Wound Assessment Shift Assessment Wound Type Puncture Wound Stage Non Pressure Wound Dressing Status Dry & Intact Drainage Amount None Primary Dressing Brand-aid Comment Thoracentesis site. Band-aid placed. Abdomen Wound Assessment Shift Assessment Wound Type Incision Wound Stage Non Pressure Wound Dressing Status Dry & Intact Drainage Amount None Primary Dressing Gauze Pads Comment dressing C/D/I Wound Photo Photo Taken No Eye Exam: PERRL, EOMI, eyes nml inspection Ears, Nose, Throat Exam: normal ENT inspection, pharynx normal, moist mucous membranes Neck Exam: normal inspection, non-tender, supple, full range of motion Respiratory Exam: normal breath sounds, lungs clear, No respiratory distress Cardiovascular Exam: regular rate/rhythm, normal heart sounds Gastrointestinal/Abdomen Exam: soft, No tenderness, No mass Extremity Exam: normal inspection, normal range of motion Back Exam: normal inspection, normal range of motion, No CVA tenderness, No vertebral tenderness Male Genitalia Exam: deferred Rectal Exam: deferred Objective Data Vital Signs: Vital Signs - 24 hr Temp Pulse Resp BP Pulse Ox 04/14/25 11:59 97.8 F 105 H 24 129/67 92 L 04/14/25 11:09 102 H 20 102 H 04/14/25 07:35 98 F 93 H 24 147/70 92 L 04/14/25 05:48 93 H 22 98 04/14/25 04:00 98.1 F 89 24 142/68 97 04/14/25 00:19 92 H 28 H 87 L 04/14/25 00:00 98.2 F 94 H 22 137/63 93 L 04/13/25 20:00 97.6 F 92 H 16 134/61 98 04/13/25 19:55 94 H 22 90 L 04/13/25 16:00 99.0 F 91 H 16 155/72 96 04/13/25 15:56 18 04/13/25 15:30 97 Pain Assessment - Last Documented Pain Intensity [Abdomen] 1 Pain Intensity 0 Pain Scale Used 0-10 Pain Scale Intake and Output: Intake & Output 04/12/25 04/13/25 04/14/25 04/15/25 11:59 11:59 11:59 11:59 Intake Total 3084 2202 2495 Output Total 1875 1375 1700 Balance 1209 827 795 Lab Results: Lab Results-Last 24 Hours 04/13/25 04/14/25 04/14/25 Range/Units 14:58 04:51 04:51 WBC 6.6 (4.23-9.07) x10^3/uL RBC 3.59 L (4.63-6.08) x10^6/uL Hgb 9.5 L (13.7-17.5) g/dL Hct 31.0 L (40.1-51.0) % MCV 86.4 (79.0-92.2) fL MCH 26.5 (25.7-32.2) pg MCHC 30.6 L (32.3-36.5) g/dL RDW 17.1 H (11.6-14.4) % Plt Count 378 H (163-337) x10^3/uL MPV 9.4 (9.4-12.4) fL Sodium 136 (135-145) mmol/L Potassium 3.6 (3.5-5.1) mmol/L Chloride 105 (98-107) mmol/L Carbon Dioxide 24 (22-30) mmol/L Anion Gap 9.4 (5-15) MEQ/L BUN 4 L (9-20) mg/dL Creatinine 0.62 L (0.66-1.25) mg/dL Estimated GFR 102.2 ML/MIN Glucose 133 H (74-106) mg/dL Calcium 8.5 (8.4-10.2) mg/dL Magnesium 1.5 L (1.6-2.3) mg/dL Total Bilirubin 0.30 (0.2-1.3) mg/dL AST 29 (17-59) U/L ALT 18 (0-50) U/L Alkaline Phosphatase 47 (38-126) U/L NT-Pro-B Natriuret Pep 464 (<300) pg/mL Serum Total Protein 6.2 L (6.3-8.2) g/dL Albumin 3.1 L (3.5-5.0) g/dL Fluid Color YELLOW (COLORLESS) Fluid Clarity SL HAZY A (CLEAR) Fluid RBC < 0.002 (0) x10^6/uL Fld Polynuclear WBCs # 446 H (0) /uL Fld Polynuclear WBCs % 34.800 H (0) % Fld Mononuclear WBCs % 65.200 H (0) % Radiology Exams: Radiology Procedures Category Date Time Status CHEST 1 VIEW (PORTABLE) Routine Exams 04/13/25 09:59 Completed CHEST 1 VIEW (PORTABLE) Stat Exams 04/13/25 14:36 Completed ECHO W/2D AND DOPPLER [US] Routine Exams 04/14/25 08:00 Ordered THORACENTESIS [US] Routine Exams 04/13/25 11:32 Completed Medications: Medications Generic Name Dose Route Start Last Admin Trade Name Freq PRN Reason Stop Dose Admin Acetaminophen 650 mg 04/10/25 11:51 04/10/25 12:21 Acetaminophen 650 Mg Supp.Rect DC 05/10/25 11:50 650 mg Q4H PRN PRN Administration PAIN AND/OR FEVER Acetaminophen 650 mg 04/11/25 08:40 04/12/25 23:27 Acetaminophen 325 Mg Tablet PO 05/11/25 08:39 650 mg Q4H PRN PRN Administration PAIN AND/OR FEVER Hydrocodone Bitart/Acetaminophen 1 tab 12/01/25 17:52 Hydrocodone/Apap 5/325 1 Tab Tablet PO 04/18/25 17:51 Q6H PRN PRN PAIN Albuterol Sulfate 2.5 mg 04/06/25 08:18 04/14/25 00:18 Albuterol Sulfate 2.5 Mg/3 Ml Neb 05/06/25 08:17 2.5 mg Q4HPRN PRN Administration SHORTNESS OF BREATH/WHEEZING Albuterol Sulfate 2 puff 04/06/25 08:30 Albuterol Common Canister Inhaler 05/06/25 08:29 Q4H PRN PRN Albuterol/Ipratropium 3 ml 04/06/25 11:00 04/14/25 11:08 Ipratropium/Albuterol Sulfate 3 Ml Ampul.Neb 05/06/25 10:59 3 ml QIDRT ALYSSA Administration Methylprednisolone Sodium 0 mg 04/13/25 22:00 04/14/25 05:19 Succinate 40 mg/ Sterile Water IV 05/13/25 21:59 40 mg 1 ml Q8HT ALYSSA Administration Diazepam 0 mg 04/06/25 08:17 Diazepam 10 Mg/2 Ml Disp.Syringe IV 05/06/25 08:16 Q2H PRN PRN CIWA SCORE Protocol Enoxaparin Sodium 40 mg 04/07/25 12:00 04/13/25 11:35 Enoxaparin Sodium 40 Mg/0.4 Ml Syringe SQ 05/07/25 11:59 Not Given DAILY ALYSSA Furosemide 20 mg 04/13/25 18:15 04/14/25 10:23 Furosemide 20 Mg/Vial IV 05/13/25 18:14 20 mg DAILY ALYSSA Administration Metronidazole 500 mg in 100 mls @ 200 mls/hr 04/07/25 12:00 04/14/25 05:18 Flagyl 500 Mg Ivpb IV 05/07/25 11:59 200 mls/hr Q6HT ALYSSA Administration Piperacillin Sod/Tazobactam 100 mls @ 200 mls/hr 04/13/25 12:00 04/14/25 05:19 Sod 3.375 gm/ Sodium Chloride IV 04/16/25 11:59 200 mls/hr Q6HT ALYSSA Administration Nicotine 21 mg 04/06/25 12:30 04/14/25 10:23 Nicotine 21 Mg/Patch Patch TOP 05/06/25 12:29 21 mg Q24H10 ALYSSA Administration Ondansetron HCl 4 mg 04/06/25 08:13 Ondansetron Hcl 4 Mg/2 Ml Vial IV 05/06/25 08:12 Q6H PRN PRN NAUSEA/VOMITING Pantoprazole Sodium 40 mg 04/06/25 10:00 04/14/25 10:24 Pantoprazole 40 Mg Vial IV 05/06/25 09:59 40 mg BID ALYSSA Administration Asmanex Hfa Inhaler 1 each 04/08/25 07:00 04/14/25 05:47 IH 05/08/25 06:59 1 each BIDRT ALYSSA Administration Stiolto Respimat 2 each 04/08/25 19:00 04/13/25 19:48 Inhaler IH 05/08/25 18:59 2 each 1900 ALYSSA Administration Discontinued Medications Generic Name Dose Route Start Last Admin Trade Name Freq PRN Reason Stop Dose Admin Hydrocodone Bitart/Acetaminophen 1 tab 04/11/25 08:33 Hydrocodone/Apap 5/325 1 Tab Tablet PO 04/16/25 08:32 Q4H PRN PRN PAIN Albuterol/Ipratropium 3 ml 04/06/25 03:34 04/06/25 03:43 Ipratropium/Albuterol Sulfate 3 Ml Ampul.Neb IH 04/06/25 03:35 3 ml STAT ONE Administration Albuterol/Ipratropium Confirm 04/06/25 03:42 Ipratropium/Albuterol Sulfate 3 Ml Ampul.Neb Administered 04/06/25 03:43 Dose 3 ml IH .STK-MED ONE Azithromycin 250 mg 04/06/25 10:00 04/06/25 10:42 Azithromycin 250 Mg Tablet PO 04/09/25 10:01 Not Given DAILY ALYSSA Bisacodyl 10 mg 04/09/25 14:13 04/09/25 14:58 Bisacodyl 10 Mg Supp.Rect DC 04/09/25 14:14 10 mg STAT ONE Administration Bisacodyl 10 mg 04/09/25 18:00 04/09/25 18:01 Bisacodyl 10 Mg Supp.Rect DC 04/09/25 18:01 10 mg ONCE ONE Administration Bupivacaine HCl Confirm 04/06/25 05:06 Bupivacaine Hcl 2.5 Mg/Ml 10 Ml Administered 04/06/25 05:07 Dose 10 ml .ROUTE .STK-MED ONE Methylprednisolone Sodium 0 mg 04/06/25 10:00 04/06/25 10:12 Succinate 20 mg/ Sterile Water IV 05/06/25 09:59 20 mg 1 ml Q12HT ALYSSA Administration Device 1 04/11/25 05:30 04/11/25 08:17 Therapuetic Drug Level Monitor Each IJ 04/11/25 05:31 1 1XONLY ONE Administration Device 1 04/12/25 05:30 04/12/25 08:50 Therapuetic Drug Level Monitor Each IJ 04/12/25 05:31 Not Given 1XONLY ONE Device 1 04/12/25 17:30 04/12/25 19:36 Therapuetic Drug Level Monitor Each IJ 04/12/25 17:31 Not Given 1XONLY ONE Device 1 04/14/25 09:30 04/14/25 11:16 Therapuetic Drug Level Monitor Each IJ 04/14/25 09:31 Not Given 1XONLY ONE Dexamethasone Sodium Phosphate Confirm 04/06/25 04:36 Dexamethasone Sodium Phosphate 4 Mg/Ml Vial Administered 04/06/25 04:37 Dose 8 mg .ROUTE .STK-MED ONE Fentanyl Citrate Confirm 04/06/25 04:35 Fentanyl Citrate 100 Mcg/2 Ml* Vial Administered 04/06/25 04:36 Dose 200 mcg .ROUTE .STK-MED ONE Hydromorphone HCl 1 mg 04/06/25 00:33 04/06/25 00:48 Hydromorphone 1 Mg/1ml Inj IV 04/06/25 00:34 1 mg STAT ONE Administration Hydromorphone HCl Confirm 04/06/25 00:46 Hydromorphone 1 Mg/1ml Inj Administered 04/06/25 00:47 Dose 1 mg .ROUTE .STK-MED ONE Hydromorphone HCl 1 mg 04/06/25 03:21 04/06/25 03:28 Hydromorphone 1 Mg/1ml Inj IV 04/06/25 03:22 1 mg STAT ONE Administration Hydromorphone HCl Confirm 04/06/25 03:26 Hydromorphone 1 Mg/1ml Inj Administered 04/06/25 03:27 Dose 1 mg .ROUTE .STK-MED ONE Sodium Chloride 1,000 mls @ 999 mls/hr 04/06/25 00:33 04/06/25 01:47 Sodium Chloride 0.9% 1000 Ml IV 04/06/25 01:33 Infused .Q1H1M STA Infusion Sodium Chloride Confirm 04/06/25 00:46 Sodium Chloride 0.9% 1000 Ml Administered 04/06/25 00:47 Dose 1,000 mls @ ud .ROUTE .STK-MED ONE Piperacillin Sod/Tazobactam 100 mls @ 200 mls/hr 04/06/25 03:17 04/06/25 03:39 Sod 3.375 gm/ Sodium Chloride IV 04/06/25 03:46 200 mls/hr STAT STA 200 mls/hr Administration Sodium Chloride Confirm 04/06/25 03:32 Sodium Chloride 0.9% Administered 04/06/25 03:33 Dose 100 mls @ ud .ROUTE .STK-MED ONE Sodium Chloride Confirm 04/06/25 03:39 Sodium Chloride 0.9% 1000 Ml Administered 04/06/25 03:40 Dose 1,000 mls @ ud .ROUTE .STK-MED ONE Sodium Chloride 1,000 mls @ 100 mls/hr 04/06/25 03:45 04/06/25 03:40 Sodium Chloride 0.9% 1000 Ml IV 05/06/25 03:44 100 mls/hr .Q10H ALYSSA Administration Acetaminophen Confirm 04/06/25 04:54 Ofirmev Administered 04/06/25 04:55 Dose 100 mls @ ud IV .STK-MED ONE Lactated Ringer's Confirm 04/06/25 05:49 Lactated Ringers Administered 04/06/25 05:50 Dose 1,000 mls @ ud IV .STK-MED ONE Potassium Chloride/Dextrose/Sod Cl 1,000 mls @ 50 mls/hr 04/06/25 08:30 04/11/25 08:16 D5w/0.45ns W/ 20meq Kcl 1000 Ml IV 05/06/25 08:29 Not Given .Q20H ALYSSA Cefoxitin Sodium 2 gm in 100 mls @ 200 mls/hr 04/06/25 09:00 04/10/25 00:36 Cefoxitin 2 Gm/100 Ml Nacl Ivpb IV 05/06/25 08:59 200 mls/hr Q8H ALYSSA Administration Piperacillin Sod/Tazobactam 100 mls @ 200 mls/hr 04/10/25 12:00 04/13/25 05:09 Sod 3.375 gm/ Sodium Chloride IV 04/13/25 11:59 200 mls/hr Q6HT ALYSSA Administration Vancomycin HCl 500 mg/ Sodium 100 mls @ 100 mls/hr 04/10/25 12:00 04/11/25 07:04 Chloride IV 05/10/25 11:59 100 mls/hr Q6HT ALYSSA Administration Vancomycin HCl 1 gm in 200 mls @ 125 mls/hr 04/11/25 12:00 04/13/25 12:10 Vancomycin 1 Gram/200 Ml Bag IV 05/11/25 11:59 Not Given Q6HT ALYSSA Vancomycin HCl 1 gm in 200 mls @ 125 mls/hr 04/13/25 22:00 Vancomycin 1 Gram/200 Ml Bag IV 05/13/25 21:59 Q12HT [facility] Ketamine HCl Confirm 04/06/25 05:11 Ketamine Hcl 50 Mg/Ml Administered 04/06/25 05:12 Dose 50 mg .ROUTE .STK-MED ONE Lidocaine HCl Confirm 04/06/25 04:35 Lidocaine - Mpf 2% 5 Ml Vial Administered 04/06/25 04:36 Dose 10 ml .ROUTE .STK-MED ONE Magnesium Oxide 400 mg 04/14/25 07:51 04/14/25 10:23 Magnesium Oxide 400 Mg Tablet PO 04/14/25 07:52 400 mg STAT ONE Administration Magnesium Sulfate Confirm 04/06/25 04:54 Magnesium Sulfate Injection Administered 04/06/25 04:55 Dose 1 gm .ROUTE .STK-MED ONE Methylprednisolone 4 mg 04/06/25 08:30 Methylprednisolone 4 Mg Packet PO 05/06/25 08:29 [facility] Midazolam HCl Confirm 04/06/25 05:12 Midazolam Hcl 2 Mg/2 Ml Vial Administered 04/06/25 05:13 Dose 2 mg .ROUTE .STK-MED ONE Miscellaneous Information 1 each 04/06/25 08:30 Medication Intervention 1 Each Each 05/06/25 08:29 .RT TO CHECK [facility] Miscellaneous Information 1 each 04/06/25 13:00 Medication Intervention 1 Each Each 05/06/25 12:59 .RT TO CHECK ALYSSA Morphine Sulfate 2 mg 04/06/25 08:12 04/10/25 21:33 Morphine Sulfate 2 Mg/Ml Inj IV 04/11/25 08:11 2 mg Q2H PRN PRN Administration PAIN Non-Formulary Medication 1 each 04/10/25 09:15 Pharmacy Dose Request: Vancomycin 1 Each IV 05/10/25 09:14 ONCALL[facility] Ondansetron HCl 4 mg 04/06/25 00:35 04/06/25 00:48 Ondansetron Hcl 4 Mg/2 Ml Vial IV 04/06/25 00:36 4 mg STAT ONE Administration Ondansetron HCl Confirm 04/06/25 00:46 Ondansetron Hcl 4 Mg/2 Ml Vial Administered 04/06/25 00:47 Dose 4 mg .ROUTE .STK-MED ONE Ondansetron HCl Confirm 04/06/25 04:35 Ondansetron Hcl 4 Mg/2 Ml Vial Administered 04/06/25 04:36 Dose 8 mg .ROUTE .STK-MED ONE Pantoprazole Sodium 40 mg 04/06/25 10:00 Protonix (Pantoprazole) 40 Mg Tablet PO 05/06/25 09:59 QAM [facility] Piperacillin Sod/Tazobactam Sod Confirm 04/06/25 03:26 Piperacillin/Tazobactam Sodium 3.375 Gm Vial Administered 04/06/25 03:27 Dose 3.375 gm IV .STK-MED ONE Piperacillin Sod/Tazobactam Sod Confirm 04/11/25 18:01 Piperacillin/Tazobactam Sodium 3.375 Gm Vial Administered 04/11/25 18:02 Dose 3.375 gm IV .STK-MED ONE Potassium Bicarbonate 25 meq 04/13/25 18:59 Potassium Bicarbonate 25 Meq Tab PO 04/13/25 19:00 STAT ONE Potassium Chloride 40 meq 04/13/25 18:59 04/13/25 19:02 Potassium Chloride Tab 10 Meq Tab PO 04/13/25 19:00 40 meq STAT ONE Administration Potassium Chloride Confirm 04/13/25 19:01 Potassium Chloride Tab 10 Meq Tab Administered 04/13/25 19:02 Dose 40 meq .ROUTE .STK-MED ONE Propofol Confirm 04/06/25 04:35 Propofol 200 Mg/20 Ml Vial Administered 04/06/25 04:36 Dose 400 mg IV .STK-MED ONE Rocuronium [place] Confirm 04/06/25 04:35 Rocuronium [place] 50 Mg/5 Ml Vial Administered 04/06/25 04:36 Dose 100 mg IV .STK-MED ONE Sugammadex Sodium Confirm 04/06/25 04:35 Sugammadex Sodium 200 Mg/2 Ml Vial Administered 04/06/25 04:36 Dose 400 mg IV .STK-MED ONE Vasopressin Confirm 04/06/25 04:54 Vasopressin 20 Unit/Ml Ml Administered 04/06/25 04:55 Dose 20 unit .ROUTE .STK-MED ONE Multi-Disciplinary Progress Notes: Multi-Disciplinary Progress Notes 04/14/25 11:35 Case Management Note by Samira Chatman PASRR AND LOC DONE AND APPROVED- FAXED WITH PT MIRNA TO [facility], COPY ALSO PLACED IN CHART Initialized on 04/14/25 11:35 - END OF NOTE 04/14/25 10:33 Case Management Note by Samira Chatman PATIENT CONTINUES TO WISH TO GO TO [facility] OR REHAB REFERRAL FAXED- WILL NEED TO FAX PT EVAL AND PASRR/LOC WHEN AVAILABLE PASRR AND LOC PENDING REVIEW AT THIS TIME Initialized on 04/14/25 10:33 - END OF NOTE Assessment/Plan (1) Perforated gastric ulcer Current Visit: Yes Status: Acute Code(s): K25.5 - CHRONIC OR UNSPECIFIED GASTRIC ULCER WITH PERFORATION (2) Perforated abdominal viscus Current Visit: Yes Status: Acute Code(s): R19.8 - OTH SYMPTOMS AND SIGNS INVOLVING THE DGSTV SYS AND ABDOMEN (3) Abdominal pain Current Visit: Yes Status: Acute Code(s): R10.9 - UNSPECIFIED ABDOMINAL PAIN (4) Pneumonia Current Visit: No Status: Acute Code(s): J18.9 - PNEUMONIA, UNSPECIFIED ORGANISM (5) COPD exacerbation Current Visit: No Status: Acute Code(s): J44.1 - CHRONIC OBSTRUCTIVE PULMONARY DISEASE W (ACUTE) EXACERBATION (6) Pleural effusion Current Visit: Yes Status: Acute Code(s): J90 - PLEURAL EFFUSION, NOT ELSEWHERE CLASSIFIED (7) Dehydration Current Visit: Yes Status: Resolved Code(s): E86.0 - DEHYDRATION (8) Tobacco abuse Current Visit: No Status: Chronic Code(s): Z72.0 - TOBACCO USE (9) Alcohol intoxication Current Visit: No Status: Resolved (10) RLS (restless legs syndrome) Current Visit: Yes Status: Chronic (11) Chronic back pain Current Visit: Yes Status: Chronic Code(s): M54.9 - DORSALGIA, UNSPECIFIED; G89.29 - OTHER CHRONIC PAIN (12) Lactic acidosis Current Visit: Yes Status: Resolved Code(s): E87.20 - ACIDOSIS, UNSPECIFIED (13) Weakness Current Visit: Yes Status: Acute Assessment & Plan: (1) Perforated gastric ulcer Current Visit: Yes Status: Acute Assessment & Plan: - Advanced to FLD - Pain controlled - IS/ Flutter -Oxygen at 12L oxymask- improving spo2 at 96%- titrate as appropriate - Transition to soft diet per GS and advance as tolerated - + BM's- soft - OK to d/c per GS standpoint however pt has pneumonia and not ready to d/c yet. - PT eval 04/14 - D/C to rehab when accepted - OK to transition diet as tolerated per GS Code(s): K25.5 - CHRONIC OR UNSPECIFIED GASTRIC ULCER WITH PERFORATION (2) Perforated abdominal viscus Current Visit: Yes Status: Acute Assessment & Plan: CTA findings of pneumoperitoneum involving lesser sac, hepatic surface, and mid-abdomen consistent with hollow viscus perforation. Confirmed intraoperatively. IV antibiotics. Monitor for postoperative complications (leak, abscess, sepsis). CBC, CMP reviewed Code(s): R19.8 - OTH SYMPTOMS AND SIGNS INVOLVING THE DGSTV SYS AND ABDOMEN (3) Abdominal pain Current Visit: Yes Status: Acute Assessment & Plan: - 2:2 diagnosis plans above Code(s): R10.9 - UNSPECIFIED ABDOMINAL PAIN (4) Pneumonia Current Visit: No Status: Acute Assessment & Plan: - Sputum culture with pseudomonas- continue Zosyn/flagyl - Oxygenation at 12L oxymask down from 15L with spo2 at 97%-titrate as appropri ate - WBC normalized - CBC, CMP reviewed - CXR: 04/13 Portable chest again demonstrates mild/moderate bibasilar infiltrates/atelectasis/effusions, worsened on left. Remaining heart and upper lungs unremarkable. - Thoracentesis ordered on left side - No Blood cultures ordered during visit. - Duonebs, Proventil, - Solu-medrol Q8 started today 04/13 04/14 - 2lNC 92% Code(s): J18.9 - PNEUMONIA, UNSPECIFIED ORGANISM (5) COPD exacerbation Current Visit: No Status: Acute Assessment & Plan: - See pneumonia plan above Code(s): J44.1 - CHRONIC OBSTRUCTIVE PULMONARY DISEASE W (ACUTE) EXACERBATION (6) Pleural effusion Current Visit: Yes Status: Acute Assessment & Plan: - As seen on chest CT on 04/10: IMPRESSION: 1. No evidence of pulmonary embolism, unchanged. 2. New bilateral lower lobar consolidations and mild pleural effusion, possible infectious process/ pneumonic patches should be considered, clinical and lab correlation needed. -CXR: 04/13 Portable chest again demonstrates mild/moderate bibasilar infiltrates/atelectasis/effusions, worsened on left. Remaining heart and upper lungs unremarkable. - PT/INR - Thoracentesis labs ordered - US guided thoracentisis today with 700 ml out of left lung - Post procedure CXR: 04/13 Portable chest obtained in expiration demonstrates marked improvement left base effusion with tiny residual consistent with recent thoracentesis. No pneumothorax. Stable mild right base infiltrate/atelectasis/effusion. Remaining heart and lungs unremarkable. No new cardiopulmonary abnormalities. - O2 post procedure 96% oxymask at 12 L - RT to wean O2 as tolerated - BNP in AM - Lasix IV daily started - Consider thoracentesis in AM of Right lung - Echo in AM 04/14 - Echo results pending - Oxygen demand improved to 2lNC at 96% - Will need repeat labs acn CXR Sunday - Will continue lasix OP Code(s): J90 - PLEURAL EFFUSION, NOT ELSEWHERE CLASSIFIED (7) Dehydration Current Visit: Yes Status: Resolved Assessment & Plan: - resolved Code(s): E86.0 - DEHYDRATION (8) Tobacco abuse Current Visit: No Status: Chronic Assessment & Plan: Heavy long-term use (34 PPD). Nicotine patch for withdrawal. Reinforced cessation counseling. Code(s): Z72.0 - TOBACCO USE (9) Alcohol intoxication Current Visit: No Status: Resolved Assessment & Plan: Assessment & Plan: History of 6 beers daily CIWA monitoring and withdrawal precautions in place. Counseling provided. (10) RLS (restless legs syndrome) Current Visit: Yes Status: Chronic Assessment & Plan: No home medications. Iron studies reviewed (11) Chronic back pain Current Visit: Yes Status: Chronic Assessment & Plan: No routine home regimen documented. - [place] Q6 PRN Code(s): M54.9 - DORSALGIA, UNSPECIFIED; G89.29 - OTHER CHRONIC PAIN (12) Lactic acidosis Current Visit: Yes Status: Resolved Assessment & Plan: Initial 2.2 improved to 1.1 with IV fluids on admission No evidence of sepsis. Code(s): E87.20 - ACIDOSIS, UNSPECIFIED (13) Weakness Current Visit: Yes Status: Acute Assessment & Plan: -Physical/Occupational Therapy Daily PT/OT to improve strength, mobility, and ADL independence. -Progressive Mobilization Ambulate with assistance; increase distance as tolerated. -Fall Precautions Bed/chair alarms, close supervision during transfers. -Discharge Planning SNF rehab recommended for continued strengthening and functional recovery. VTE: Lovenox PPI: Protonix Dispo: pending acceptance to [facility] rehab Code status: Full code Plan of care time spent > 40 mins Code(s): R53.1 - WEAKNESS Code(s): R53.1 - WEAKNESS
[2025-04-14] MEDS: K-LYTE PO ONE (16:12)
[2025-04-14 17:34] LABS: Glucose, Body Fluid 130.0 mg/dL (.); LD, Body Fluid 169.0 IU/L (.)
[2025-04-14] MEDS: Flagyl 500 MG PO SCH (23:05)
[2025-04-15 05:52] LABS: Hematocrit 31.0 % (40.1-51.0); Hemoglobin 9.3 g/dL (13.7-17.5); Mean Corpuscular Hemoglobin 26.0 pg (25.7-32.2); Mean Corpuscular Hgb Concent. 30.0 g/dL (32.3-36.5); Platelet Count 374 x10^3/uL (163-337); Red Blood Count 3.58 x10^6/uL (4.63-6.08); White Blood Count 11.2 x10^3/uL (4.23-9.07)
[2025-04-15 06:27] LABS: Calcium 8.9 mg/dL (8.4-10.2); Carbon Dioxide 27.0 mmol/L (22-30); Creatinine 1 0.62 mg/dL (0.66-1.25); EST GLOMERULAR FILTRATION RATE 102.2 ML/MIN; Glucose 140.0 mg/dL (74-106); Potassium 3.6 mmol/L (3.5-5.1); SGOT/AST 24.0 U/L (17-59); SGPT/ALT 17.0 U/L (0-50); Total Protein 6.1 g/dL (6.3-8.2)
[2025-04-15] MEDS: NORCO 5/325 MG PO PRN (08:38)
[2025-04-15] MEDS ORDERED: MORPHINE SULFATE 2 MG INJ IM ONE (14:12)
[2025-04-15] MEDS: MORPHINE SULFATE 2 MG INJ IV ONE (14:48)
[2025-04-15] MEDS ORDERED: Sensorcaine 0.25% 10 ML ONE ×2 (14:51)
[2025-04-15] MEDS: Lactated Ringers 1,000 ML IV SCH (15:08)
[2025-04-15] MEDS ORDERED: Xylocaine-Mpf 2% 5 Ml Vial ONE (15:15)
[2025-04-15] MEDS ORDERED: SUBLIMAZE 100 MCG/2 ML ONE (15:15)
[2025-04-15] MEDS ORDERED: propofoL IV ONE (15:15)
[2025-04-15] MEDS ORDERED: ROCURONIUM BROMIDE IV ONE (15:15)
[2025-04-15] MEDS ORDERED: Quelicin Fliptop 200 MG/10 ML ONE (15:15)
[2025-04-15] MEDS ORDERED: BRIDION 200MG/2ML IV ONE (15:15)
[2025-04-15] MEDS ORDERED: Zofran 4 MG/2 ML VIAL ONE (15:15)
[2025-04-15] MEDS ORDERED: TORAdol 30 mg Injection ONE (15:15)
[2025-04-15] MEDS ORDERED: Amidate 20 MG/10 ML IV ONE (15:16)
[2025-04-15] MEDS ORDERED: PITRESSIN 20 UNITS ONE (15:24)
--- NOTE | 2025-04-15 15:32 | PCM.NOTE ---
Date and Time: 04/15/25 1530 patient was doing well. tolerated regular lunch having bms. pain mild. ambulating in oliva. this afternoon blood drainage and opening midline wound, recommended npo for possible surgery tomorrow, however then within an couple hours visible small bowel evisceration. nad nonlabored resps reg rate nd, soft, sb ivisceration slightly dusky 1 side. no peritonitis. a/p: evisceration. discussed with patient famliy need for exploration likely closure possible open wound/vac. -ex lap now. Objective Exam Wound Assessment: Skin/Wound Assessment Wound/Incision Assessment Start: 04/06/25 07:58 Text: Status: Active Freq: Q4H Protocol: Document 04/15/25 11:07 RB (Rec: 04/15/25 11:08 RB [id number]) Wound/Incision Assessment Posterior Back Wound Assessment Shift Assessment Wound Type Puncture Wound Stage Non Pressure Wound Dressing Status Dry & Intact Drainage Amount None Primary Dressing Brand-aid Comment Thoracentesis site. Band-aid CDI Abdomen Wound Assessment Shift Assessment Wound Type Incision Wound Stage Non Pressure Wound Dressing Status Dry & Intact Drainage Amount None Primary Dressing Gauze Pads Comment Pt has some bleeding this morning when coughing, cleaned up, called Dr Goodwin and covered with new bandage Wound Photo Photo Taken No Objective Data Vital Signs: Vital Signs - 24 hr Temp Pulse Resp BP Pulse Ox 04/15/25 15:03 94 H 18 93 L 04/15/25 15:02 99.3 F 92 H 26 H 163/83 93 L 04/15/25 14:30 99.3 F 92 H 26 H 163/83 93 L 04/15/25 12:08 18 04/15/25 11:59 98.7 F 100 H 18 141/88 96 04/15/25 11:34 101 H 20 92 L 04/15/25 07:41 24 04/15/25 07:08 97.8 F 85 24 147/70 90 L 04/15/25 06:36 88 20 90 L 04/15/25 04:00 98.3 F 89 22 139/68 91 L 04/15/25 00:00 98.2 F 88 24 133/66 92 L 04/14/25 20:00 98.2 F 99 H 24 122/57 93 L 04/14/25 19:06 96 H 20 94 L 04/14/25 16:00 97.8 F 99 H 24 139/65 92 L Pain Assessment - Last Documented Pain Intensity [Abdomen] 1 Pain Intensity 10 Pain Scale Used 0-10 Pain Scale Intake and Output: Intake & Output 04/13/25 04/14/25 04/15/25 04/16/25 11:59 11:59 11:59 11:59 Intake Total 2202 2495 720 240 Output Total 1375 1700 1700 600 Balance 827 795 980 -360 Weight 70 kg Lab Results: Lab Results-Last 24 Hours 04/13/25 04/13/25 04/15/25 Range/Units 14:58 14:58 05:29 WBC 11.2 H (4.23-9.07) x10^3/uL RBC 3.58 L (4.63-6.08) x10^6/uL Hgb 9.3 L (13.7-17.5) g/dL Hct 31.0 L (40.1-51.0) % MCV 86.6 (79.0-92.2) fL MCH 26.0 (25.7-32.2) pg MCHC 30.0 L (32.3-36.5) g/dL RDW 16.8 H (11.6-14.4) % Plt Count 374 H (163-337) x10^3/uL MPV 9.7 (9.4-12.4) fL Sodium (135-145) mmol/L Potassium (3.5-5.1) mmol/L Chloride (98-107) mmol/L Carbon Dioxide (22-30) mmol/L Anion Gap (5-15) MEQ/L BUN (9-20) mg/dL Creatinine (0.66-1.25) mg/dL Estimated GFR ML/MIN Glucose (74-106) mg/dL Calcium (8.4-10.2) mg/dL Total Bilirubin (0.2-1.3) mg/dL AST (17-59) U/L ALT (0-50) U/L Alkaline Phosphatase (38-126) U/L Serum Total Protein (6.3-8.2) g/dL Albumin (3.5-5.0) g/dL Fluid pH Pending Fluid Glucose 130 (.) mg/dL Fluid Total Protein 1.8 (.) g/dL Fluid LDH 169 (.) IU/L Non-Gen Cyto Rpt Notes SEE COMMENTS 04/15/25 Range/Units 05:29 WBC (4.23-9.07) x10^3/uL RBC (4.63-6.08) x10^6/uL Hgb (13.7-17.5) g/dL Hct (40.1-51.0) % MCV (79.0-92.2) fL MCH (25.7-32.2) pg MCHC (32.3-36.5) g/dL RDW (11.6-14.4) % Plt Count (163-337) x10^3/uL MPV (9.4-12.4) fL Sodium 135 (135-145) mmol/L Potassium 3.6 (3.5-5.1) mmol/L Chloride 102 (98-107) mmol/L Carbon Dioxide 27 (22-30) mmol/L Anion Gap 10.5 (5-15) MEQ/L BUN 13 (9-20) mg/dL Creatinine 0.62 L (0.66-1.25) mg/dL Estimated GFR 102.2 ML/MIN Glucose 140 H (74-106) mg/dL Calcium 8.9 (8.4-10.2) mg/dL Total Bilirubin 0.30 (0.2-1.3) mg/dL AST 24 (17-59) U/L ALT 17 (0-50) U/L Alkaline Phosphatase 41 (38-126) U/L Serum Total Protein 6.1 L (6.3-8.2) g/dL Albumin 3.1 L (3.5-5.0) g/dL Fluid pH Fluid Glucose (.) mg/dL Fluid Total Protein (.) g/dL Fluid LDH (.) IU/L Non-Gen Cyto Rpt Notes Radiology Exams: Radiology Procedures Category Date Time Status CHEST 1 VIEW (PORTABLE) Stat Exams 04/13/25 14:36 Completed ECHO W/2D AND DOPPLER [US] Routine Exams 04/14/25 08:00 Taken Medications: Medications Generic Name Dose Route Start Last Admin Trade Name Freq PRN Reason Stop Dose Admin Acetaminophen 650 mg 04/10/25 11:51 04/10/25 12:21 Acetaminophen 650 Mg Supp.Rect CA 05/10/25 11:50 650 mg Q4H PRN PRN Administration PAIN AND/OR FEVER Acetaminophen 650 mg 04/11/25 08:40 04/12/25 23:27 Acetaminophen 325 Mg Tablet PO 05/11/25 08:39 650 mg Q4H PRN PRN Administration PAIN AND/OR FEVER Hydrocodone Bitart/Acetaminophen 1 tab 04/13/25 17:52 04/15/25 08:38 Hydrocodone/Apap 5/325 1 Tab Tablet PO 04/18/25 17:51 1 tab Q6H PRN PRN Administration PAIN Albuterol Sulfate 2.5 mg 04/06/25 08:18 04/14/25 00:18 Albuterol Sulfate 2.5 Mg/3 Ml Neb 05/06/25 08:17 2.5 mg Q4HPRN PRN Administration SHORTNESS OF BREATH/WHEEZING Albuterol Sulfate 2 puff 04/06/25 08:30 Albuterol Common Canister Inhaler 05/06/25 08:29 Q4H PRN PRN Albuterol/Ipratropium 3 ml 04/06/25 11:00 04/15/25 15:03 Ipratropium/Albuterol Sulfate 3 Ml Ampul.Neb 05/06/25 10:59 3 ml QIDRT ALYSSA Administration Diazepam 0 mg 04/06/25 08:17 Diazepam 10 Mg/2 Ml Disp.Syringe IV 05/06/25 08:16 Q2H PRN PRN CIWA SCORE Protocol Furosemide 20 mg 04/13/25 18:15 04/15/25 10:06 Furosemide 20 Mg/Vial IV 05/13/25 18:14 20 mg DAILY ALYSSA Administration Piperacillin Sod/Tazobactam 100 mls @ 200 mls/hr 04/13/25 12:00 04/15/25 11:50 Sod 3.375 gm/ Sodium Chloride IV 04/20/25 11:59 200 mls/hr Q6HT ALYSSA Administration Lactated Ringer's 1,000 mls @ 50 mls/hr 04/15/25 15:30 04/15/25 15:08 Lactated Ringers IV 05/15/25 15:29 50 mls/hr .Q20H AYLSSA Administration Metronidazole 500 mg 04/15/25 17:00 Metronidazole 500 Mg Tablet PO 05/15/25 16:59 QID ALYSSA Nicotine 21 mg 04/06/25 12:30 04/15/25 10:05 Nicotine 21 Mg/Patch Patch TOP 05/06/25 12:29 21 mg Q24H10 ALYSSA Administration Ondansetron HCl 4 mg 04/06/25 08:13 Ondansetron Hcl 4 Mg/2 Ml Vial IV 05/06/25 08:12 Q6H PRN PRN NAUSEA/VOMITING Pantoprazole Sodium 40 mg 04/06/25 10:00 04/15/25 10:06 Pantoprazole 40 Mg Vial IV 05/06/25 09:59 40 mg BID ALYSSA Administration Asmanex Hfa Inhaler 1 each 04/08/25 07:00 04/15/25 06:34 IH 05/08/25 06:59 1 each BIDRT ALYSSA Administration Stiolto Respimat 2 each 04/08/25 19:00 04/14/25 19:16 Inhaler IH 05/08/25 18:59 2 each 1900 ALYSSA Administration Discontinued Medications Generic Name Dose Route Start Last Admin Trade Name Freq PRN Reason Stop Dose Admin Hydrocodone Bitart/Acetaminophen 1 tab 04/11/25 08:33 Hydrocodone/Apap 5/325 1 Tab Tablet PO 04/16/25 08:32 Q4H PRN PRN PAIN Albuterol/Ipratropium 3 ml 04/06/25 03:34 04/06/25 03:43 Ipratropium/Albuterol Sulfate 3 Ml Ampul.Neb IH 04/06/25 03:35 3 ml STAT ONE Administration Albuterol/Ipratropium Confirm 04/06/25 03:42 Ipratropium/Albuterol Sulfate 3 Ml Ampul.Neb Administered 04/06/25 03:43 Dose 3 ml IH .STK-MED ONE Azithromycin 250 mg 04/06/25 10:00 04/06/25 10:42 Azithromycin 250 Mg Tablet PO 04/09/25 10:01 Not Given DAILY ALYSSA Bisacodyl 10 mg 04/09/25 14:13 04/09/25 14:58 Bisacodyl 10 Mg Supp.Rect CA 04/09/25 14:14 10 mg STAT ONE Administration Bisacodyl 10 mg 04/09/25 18:00 04/09/25 18:01 Bisacodyl 10 Mg Supp.Rect CA 04/09/25 18:01 10 mg ONCE ONE Administration Bupivacaine HCl Confirm 04/06/25 05:06 Bupivacaine Hcl 2.5 Mg/Ml 10 Ml Administered 04/06/25 05:07 Dose 10 ml .ROUTE .STK-MED ONE Bupivacaine HCl Confirm 04/15/25 14:51 Bupivacaine Hcl 2.5 Mg/Ml 10 Ml Administered 04/15/25 14:52 Dose 10 ml .ROUTE .STK-MED ONE Bupivacaine HCl Confirm 04/15/25 14:51 Bupivacaine Hcl 2.5 Mg/Ml 10 Ml Administered 04/15/25 14:52 Dose 10 ml .ROUTE .STK-MED ONE Methylprednisolone Sodium 0 mg 04/06/25 10:00 04/06/25 10:12 Succinate 20 mg/ Sterile Water IV 05/06/25 09:59 20 mg 1 ml Q12HT ALYSSA Administration Methylprednisolone Sodium 0 mg 04/13/25 22:00 04/15/25 13:29 Succinate 40 mg/ Sterile Water IV 05/13/25 21:59 1 mg 1 ml Q8HT ALYSSA Administration Device 1 04/11/25 05:30 04/11/25 08:17 Therapuetic Drug Level Monitor Each IJ 04/11/25 05:31 1 1XONLY ONE Administration Device 1 04/12/25 05:30 04/12/25 08:50 Therapuetic Drug Level Monitor Each IJ 04/12/25 05:31 Not Given 1XONLY ONE Device 1 04/12/25 17:30 04/12/25 19:36 Therapuetic Drug Level Monitor Each IJ 04/12/25 17:31 Not Given 1XONLY ONE Device 1 04/14/25 09:30 04/14/25 11:16 Therapuetic Drug Level Monitor Each IJ 04/14/25 09:31 Not Given 1XONLY ONE Dexamethasone Sodium Phosphate Confirm 04/06/25 04:36 Dexamethasone Sodium Phosphate 4 Mg/Ml Vial Administered 04/06/25 04:37 Dose 8 mg .ROUTE .STK-MED ONE Dexamethasone Sodium Phosphate Confirm 04/15/25 15:15 Dexamethasone Sodium Phosphate 4 Mg/Ml Vial Administered 04/15/25 15:16 Dose 8 mg .ROUTE .STK-MED ONE Enoxaparin Sodium 40 mg 04/07/25 12:00 04/13/25 11:35 Enoxaparin Sodium 40 Mg/0.4 Ml Syringe SQ 05/07/25 11:59 Not Given DAILY ALYSSA Etomidate Confirm 04/15/25 15:16 Etomidate 20 Mg/10 Ml Amp Administered 04/15/25 15:17 Dose 20 mg IV .STK-MED ONE Fentanyl Citrate Confirm 04/06/25 04:35 Fentanyl Citrate 100 Mcg/2 Ml* Vial Administered 04/06/25 04:36 Dose 200 mcg .ROUTE .STK-MED ONE Fentanyl Citrate Confirm 04/15/25 15:15 Fentanyl Citrate 100 Mcg/2 Ml* Vial Administered 04/15/25 15:16 Dose 100 mcg .ROUTE .STK-MED ONE Hydromorphone HCl 1 mg 04/06/25 00:33 04/06/25 00:48 Hydromorphone 1 Mg/1ml Inj IV 04/06/25 00:34 1 mg STAT ONE Administration Hydromorphone HCl Confirm 04/06/25 00:46 Hydromorphone 1 Mg/1ml Inj Administered 04/06/25 00:47 Dose 1 mg .ROUTE .STK-MED ONE Hydromorphone HCl 1 mg 04/06/25 03:21 04/06/25 03:28 Hydromorphone 1 Mg/1ml Inj IV 04/06/25 03:22 1 mg STAT ONE Administration Hydromorphone HCl Confirm 04/06/25 03:26 Hydromorphone 1 Mg/1ml Inj Administered 04/06/25 03:27 Dose 1 mg .ROUTE .STK-MED ONE Sodium Chloride 1,000 mls @ 999 mls/hr 04/06/25 00:33 04/06/25 01:47 Sodium Chloride 0.9% 1000 Ml IV 04/06/25 01:33 Infused .Q1H1M STA Infusion Sodium Chloride Confirm 04/06/25 00:46 Sodium Chloride 0.9% 1000 Ml Administered 04/06/25 00:47 Dose 1,000 mls @ ud .ROUTE .STK-MED ONE Piperacillin Sod/Tazobactam 100 mls @ 200 mls/hr 04/06/25 03:17 04/06/25 03:39 Sod 3.375 gm/ Sodium Chloride IV 04/06/25 03:46 200 mls/hr STAT STA 200 mls/hr Administration Sodium Chloride Confirm 04/06/25 03:32 Sodium Chloride 0.9% Administered 04/06/25 03:33 Dose 100 mls @ ud .ROUTE .STK-MED ONE Sodium Chloride Confirm 04/06/25 03:39 Sodium Chloride 0.9% 1000 Ml Administered 04/06/25 03:40 Dose 1,000 mls @ ud .ROUTE .STK-MED ONE Sodium Chloride 1,000 mls @ 100 mls/hr 04/06/25 03:45 04/06/25 03:40 Sodium Chloride 0.9% 1000 Ml IV 05/06/25 03:44 100 mls/hr .Q10H ALYSSA Administration Acetaminophen Confirm 04/06/25 04:54 Ofirmev Administered 04/06/25 04:55 Dose 100 mls @ ud IV .STK-MED ONE Lactated Ringer's Confirm 04/06/25 05:49 Lactated Ringers Administered 04/06/25 05:50 Dose 1,000 mls @ ud IV .STK-MED ONE Potassium Chloride/Dextrose/Sod Cl 1,000 mls @ 50 mls/hr 04/06/25 08:30 04/11/25 08:16 D5w/0.45ns W/ 20meq Kcl 1000 Ml IV 05/06/25 08:29 Not Given .Q20H ALYSSA Cefoxitin Sodium 2 gm in 100 mls @ 200 mls/hr 04/06/25 09:00 04/10/25 00:36 Cefoxitin 2 Gm/100 Ml Nacl Ivpb IV 05/06/25 08:59 200 mls/hr Q8H ALYSSA Administration Metronidazole 500 mg in 100 mls @ 200 mls/hr 04/07/25 12:00 04/14/25 18:15 Flagyl 500 Mg Ivpb IV 05/07/25 11:59 200 mls/hr Q6HT ALYSSA Administration Piperacillin Sod/Tazobactam 100 mls @ 200 mls/hr 04/10/25 12:00 04/13/25 05:09 Sod 3.375 gm/ Sodium Chloride IV 04/13/25 11:59 200 mls/hr Q6HT ALYSSA Administration Vancomycin HCl 500 mg/ Sodium 100 mls @ 100 mls/hr 04/10/25 12:00 04/11/25 07:04 Chloride IV 05/10/25 11:59 100 mls/hr Q6HT ALYSSA Administration Vancomycin HCl 1 gm in 200 mls @ 125 mls/hr 04/11/25 12:00 04/13/25 12:10 Vancomycin 1 Gram/200 Ml Bag IV 05/11/25 11:59 Not Given Q6HT ALYSSA Vancomycin HCl 1 gm in 200 mls @ 125 mls/hr 04/13/25 22:00 Vancomycin 1 Gram/200 Ml Bag IV 05/13/25 21:59 Q12HT ALYSSA Sodium Chloride Confirm 04/15/25 15:24 Sodium Chloride 0.9% Administered 04/15/25 15:25 Dose 100 mls @ ud .ROUTE .STK-MED ONE Ketamine HCl Confirm 04/06/25 05:11 Ketamine Hcl 50 Mg/Ml Administered 04/06/25 05:12 Dose 50 mg .ROUTE .STK-MED ONE Ketorolac Tromethamine Confirm 04/15/25 15:15 Ketorolac Tromethamine 30 Mg/Ml Inj Administered 04/15/25 15:16 Dose 30 mg .ROUTE .STK-MED ONE Lidocaine HCl Confirm 04/06/25 04:35 Lidocaine - Mpf 2% 5 Ml Vial Administered 04/06/25 04:36 Dose 10 ml .ROUTE .STK-MED ONE Lidocaine HCl Confirm 04/15/25 15:15 Lidocaine - Mpf 2% 5 Ml Vial Administered 04/15/25 15:16 Dose 5 ml .ROUTE .STK-MED ONE Magnesium Oxide 400 mg 04/14/25 07:51 04/14/25 10:23 Magnesium Oxide 400 Mg Tablet PO 04/14/25 07:52 400 mg STAT ONE Administration Magnesium Sulfate Confirm 04/06/25 04:54 Magnesium Sulfate Injection Administered 04/06/25 04:55 Dose 1 gm .ROUTE .STK-MED ONE Methylprednisolone 4 mg 04/06/25 08:30 Methylprednisolone 4 Mg Packet PO 05/06/25 08:29 [facility] Metronidazole 500 mg 04/15/25 00:00 04/15/25 05:15 Metronidazole 500 Mg Tablet PO 05/15/25 00:00 500 mg Q6H ALYSSA Administration Midazolam HCl Confirm 04/06/25 05:12 Midazolam Hcl 2 Mg/2 Ml Vial Administered 04/06/25 05:13 Dose 2 mg .ROUTE .STK-MED ONE Miscellaneous Information 1 each 04/06/25 08:30 Medication Intervention 1 Each Each 05/06/25 08:29 .RT TO CHECK ALYSSA Miscellaneous Information 1 each 04/06/25 13:00 Medication Intervention 1 Each Each 05/06/25 12:59 .RT TO CHECK [facility] Morphine Sulfate 2 mg 04/06/25 08:12 04/10/25 21:33 Morphine Sulfate 2 Mg/Ml Inj IV 04/11/25 08:11 2 mg Q2H PRN PRN Administration PAIN Morphine Sulfate 1 mg 04/15/25 14:12 Morphine Sulfate 2 Mg/Ml Inj IM 04/15/25 14:13 STAT ONE Morphine Sulfate 1 mg 04/15/25 14:43 04/15/25 14:48 Morphine Sulfate 2 Mg/Ml Inj IV 04/15/25 14:44 1 mg STAT ONE Administration Non-Formulary Medication 1 each 04/10/25 09:15 Pharmacy Dose Request: Vancomycin 1 Each IV 05/10/25 09:14 [facility] Ondansetron HCl 4 mg 04/06/25 00:35 04/06/25 00:48 Ondansetron Hcl 4 Mg/2 Ml Vial IV 04/06/25 00:36 4 mg STAT ONE Administration Ondansetron HCl Confirm 04/06/25 00:46 Ondansetron Hcl 4 Mg/2 Ml Vial Administered 04/06/25 00:47 Dose 4 mg .ROUTE .STK-MED ONE Ondansetron HCl Confirm 04/06/25 04:35 Ondansetron Hcl 4 Mg/2 Ml Vial Administered 04/06/25 04:36 Dose 8 mg .ROUTE .STK-MED ONE Ondansetron HCl Confirm 04/15/25 15:15 Ondansetron Hcl 4 Mg/2 Ml Vial Administered 04/15/25 15:16 Dose 4 mg .ROUTE .STK-MED ONE Pantoprazole Sodium 40 mg 04/06/25 10:00 Protonix (Pantoprazole) 40 Mg Tablet PO 05/06/25 09:59 QAM [facility] Piperacillin Sod/Tazobactam Sod Confirm 04/06/25 03:26 Piperacillin/Tazobactam Sodium 3.375 Gm Vial Administered 04/06/25 03:27 Dose 3.375 gm IV .STK-MED ONE Piperacillin Sod/Tazobactam Sod Confirm 04/11/25 18:01 Piperacillin/Tazobactam Sodium 3.375 Gm Vial Administered 04/11/25 18:02 Dose 3.375 gm IV .STK-MED ONE Potassium Bicarbonate 25 meq 04/13/25 18:59 04/14/25 16:12 Potassium Bicarbonate 25 Meq Tab PO 04/13/25 19:00 Not Given STAT ONE Potassium Chloride 40 meq 04/13/25 18:59 04/13/25 19:02 Potassium Chloride Tab 10 Meq Tab PO 04/13/25 19:00 40 meq STAT ONE Administration Potassium Chloride Confirm 04/13/25 19:01 Potassium Chloride Tab 10 Meq Tab Administered 04/13/25 19:02 Dose 40 meq .ROUTE .STK-MED ONE Propofol Confirm 04/06/25 04:35 Propofol 200 Mg/20 Ml Vial Administered 04/06/25 04:36 Dose 400 mg IV .STK-MED ONE Propofol Confirm 04/15/25 15:15 Propofol 200 Mg/20 Ml Vial Administered 04/15/25 15:16 Dose 200 mg IV .STK-MED ONE Rocuronium [place] Confirm 04/06/25 04:35 Rocuronium [place] 50 Mg/5 Ml Vial Administered 04/06/25 04:36 Dose 100 mg IV .STK-MED ONE Rocuronium [place] Confirm 04/15/25 15:15 Rocuronium [place] 50 Mg/5 Ml Vial Administered 04/15/25 15:16 Dose 50 mg IV .STK-MED ONE Succinylcholine Chloride Confirm 04/15/25 15:15 Succinylcholine Chloride 200mg/10 Ml Vial Administered 04/15/25 15:16 Dose 100 mg .ROUTE .STK-MED ONE Sugammadex Sodium Confirm 04/06/25 04:35 Sugammadex Sodium 200 Mg/2 Ml Vial Administered 04/06/25 04:36 Dose 400 mg IV .STK-MED ONE Sugammadex Sodium Confirm 04/15/25 15:15 Sugammadex Sodium 200 Mg/2 Ml Vial Administered 04/15/25 15:16 Dose 200 mg IV .STK-MED ONE Vasopressin Confirm 04/06/25 04:54 Vasopressin 20 Unit/Ml Ml Administered 04/06/25 04:55 Dose 20 unit .ROUTE .STK-MED ONE Vasopressin Confirm 04/15/25 15:24 Vasopressin 20 Unit/Ml Ml Administered 04/15/25 15:25 Dose 20 unit .ROUTE .STK-MED ONE Multi-Disciplinary Progress Notes: Multi-Disciplinary Progress Notes 04/15/25 12:38 Case Management Note by Samira Chatman AT [facility] STILL PENDING AT THIS TIME- INSURANCE HAS REQUESTED ADDITIONAL INFORMATION- THIS INFORMATION FAXED TO [facility] AT THIS TIME. PATIENT CONTINUE TO PLAN FOR THAT TO BE HIS DC PLAN. HE REPORTS HIS SON AN TAKE HIM AFTER HE GETS OFF WORK IN THE EVENING. HE STATED HE WOULD HAVE THEM BRING HIS PORTABLE OXYGEN FOR TRANSPORTATION Initialized on 04/15/25 12:38 - END OF NOTE 04/14/25 15:45 Pharmacy Note by Domenico Horowitz Today is day 8 of Flagyl IV. Please review if this is still needed or could be changed to oral. Initialized on 04/14/25 15:45 - END OF NOTE
--- NOTE | 2025-04-15 15:36 | PCM.NOTE ---
Date and Time: 04/15/25 1530 Subjective Assessment: 04/13/25 Mr. Patel is a 69-year-old male with COPD, emphysema, restless leg syndrome, chronic back pain, heavy alcohol use, and heavy tobacco use was admitted on 04/05/25 with severe epigastric pain. Imaging revealed free intraperitoneal air and a perforated gastric ulcer, for which he underwent emergent Claude patch repair with gastrojejunostomy. Postoperatively, he required BiPAP but was later weaned to nasal cannula, remained NPO, and was started on IV antibiotics and pain control. His course was complicated by hospital-acquired pneumonia, requiring escalation to vancomycin, Zosyn, and Flagyl. By 04/11, he was tolerating a clear liquid diet, had mild incisional pain, and remained afebrile, though he continued to experience significant weakness and functional decline, prompting recommendation for SNF rehabilitation. On 04/12, his oxygen requirement decreased to 12 L via Oxymizer, cough and sputum production improved, and sputum cultures confirmed Pseudomonas, allowing discontinuation of vancomycin while continuing Zosyn and Flagyl. On 04/13, chest x-ray showed increased left pleural effusion, and thoracentesis removed 700 mL. Labs revealed hemoglobin 9.2, normalized potassium at 3.4, and WBC within normal range. He remains on 12 L Oxymizer with oxygen saturation of 97%, reports feeling better aside from dyspnea, and is medically stable from a surgical standpoint but not yet ready for discharge due to poor oxygenation. Case management is arranging post-acute rehabilitation placement. 04/14/25 The patient is sitting up in a chair today and reports feeling much better, expressing readiness for discharge to [facility] rehab once accepted. He requests that his son drive him to the facility, which case management has approved. Magnesium is low at 1.5 and has been replaced, with plans to continue trending. Respiratory status has improved significantly, as he transitioned from a high-flow oxymask at 12 L yesterday to 2 L nasal cannula today with oxygen saturation at 92%. This improvement followed thoracentesis yesterday, during which 700 mL was removed from the left lung. Post-procedure chest x-ray showed a mild right effusion, and Lasix 20 mg daily was initiated, resulting in improved breathing. Echocardiogram results remain pending. He is tolerating a soft diet and prefers not to advance at this time. Surgery has signed off, and discharge is appropriate from the hospitalist standpoint. White blood cell count is normal today. Outpatient follow-up with pulmonology is required, along with repeat labs this Sunday and a chest x-ray to monitor pleural effusion status. The patient currently denies any further concerns. 04/15/25 The patient was resting in bed this morning when pt was found to have blood on his gown and sheets, requiring a dressing change. Nurse Lashae Tamayo RN, was asked to notify surgery of the findings. Yesterday, nurse Maurice Pardo RN, had been instructed by surgery to remove every other staple, and today the patient developed abdominal wound dehiscence. Surgery was notified, and the patient was taken to the operating room this afternoon by Dr. Mike Goodwin. He developed fever and increased pain associated with this incident. Current treatment includes Zosyn and Flagyl, with steroids discontinued. White blood cell count is elevated at 11.2. Lung sounds have improved, and he remains on 3 L oxygen with saturation at 90%. The patient had originally planned for transfer to rehab today; however, due to this complication, discharge has been delayed. Lovenox continues to be held in the setting of surgery, and further postoperative recommendations from the surgical team are pending. - Review of Systems Constitutional: Fever, No Chills Eyes: No Symptoms Ears, Nose, & Throat: No Symptoms Respiratory: No Cough, No Short Of Breath Cardiac: No Chest Pain, No Edema, No Syncope Abdominal/Gastrointestinal: Abdominal Pain (wound dehis), No Nausea, No Vomiting, No Diarrhea Genitourinary Symptoms: No Dysuria Musculoskeletal: No Back Pain, No Neck Pain Skin: No Rash Neurological: No Dizziness, No Focal Weakness, No Sensory Changes Psychological: No Symptoms Endocrine: No Symptoms Hematologic/Lymphatic: No Symptoms Immunological/Allergic: No Symptoms Objective Exam General Appearance: no apparent distress, alert Neurologic Exam: alert, 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, cooperative, normal mood/affect, nml cerebellar function, sensation nml, No motor deficits Skin Exam: normal color, warm, dry Wound Assessment: Skin/Wound Assessment Wound/Incision Assessment Start: 04/06/25 07:58 Text: Status: Active Freq: Q4H Protocol: Document 04/15/25 11:07 [place] (Rec: 04/15/25 11:08 RB [id number]) Wound/Incision Assessment Posterior Back Wound Assessment Shift Assessment Wound Type Puncture Wound Stage Non Pressure Wound Dressing Status Dry & Intact Drainage Amount None Primary Dressing Brand-aid Comment Thoracentesis site. Band-aid CDI Abdomen Wound Assessment Shift Assessment Wound Type Incision Wound Stage Non Pressure Wound Dressing Status Dry & Intact Drainage Amount None Primary Dressing Gauze Pads Comment Pt has some bleeding this morning when coughing, cleaned up, called Dr Goodwin and covered with new bandage Wound Photo Photo Taken No Eye Exam: PERRL, EOMI, eyes nml inspection Ears, Nose, Throat Exam: normal ENT inspection, pharynx normal, moist mucous membranes Neck Exam: normal inspection, non-tender, supple, full range of motion Respiratory Exam: normal breath sounds, lungs clear, No respiratory distress Cardiovascular Exam: regular rate/rhythm, normal heart sounds Gastrointestinal/Abdomen Exam: soft, tenderness, other (abd. wound dehis with bleeding and small intestine protrusion), No mass Extremity Exam: normal inspection, normal range of motion Back Exam: normal inspection, normal range of motion, No CVA tenderness, No vertebral tenderness Male Genitalia Exam: deferred Rectal Exam: deferred Objective Data Vital Signs: Vital Signs - 24 hr Temp Pulse Resp BP Pulse Ox 04/15/25 15:03 94 H 18 93 L 04/15/25 15:02 99.3 F 92 H 26 H 163/83 93 L 04/15/25 14:30 99.3 F 92 H 26 H 163/83 93 L 04/15/25 12:08 18 04/15/25 11:59 98.7 F 100 H 18 141/88 96 04/15/25 11:34 101 H 20 92 L 04/15/25 07:41 24 04/15/25 07:08 97.8 F 85 24 147/70 90 L 04/15/25 06:36 88 20 90 L 04/15/25 04:00 98.3 F 89 22 139/68 91 L 04/15/25 00:00 98.2 F 88 24 133/66 92 L 04/14/25 20:00 98.2 F 99 H 24 122/57 93 L 04/14/25 19:06 96 H 20 94 L 04/14/25 16:00 97.8 F 99 H 24 139/65 92 L Pain Assessment - Last Documented Pain Intensity [Abdomen] 1 Pain Intensity 10 Pain Scale Used 0-10 Pain Scale Intake and Output: Intake & Output 04/13/25 04/14/25 04/15/25 04/16/25 11:59 11:59 11:59 11:59 Intake Total 2202 2495 720 240 Output Total 1375 1700 1700 600 Balance 008 705 -222 -459 Weight 70 kg Lab Results: Lab Results-Last 24 Hours 04/13/25 04/13/25 04/15/25 Range/Units 14:58 14:58 05:29 WBC 11.2 H (4.23-9.07) x10^3/uL RBC 3.58 L (4.63-6.08) x10^6/uL Hgb 9.3 L (13.7-17.5) g/dL Hct 31.0 L (40.1-51.0) % MCV 86.6 (79.0-92.2) fL MCH 26.0 (25.7-32.2) pg MCHC 30.0 L (32.3-36.5) g/dL RDW 16.8 H (11.6-14.4) % Plt Count 374 H (163-337) x10^3/uL MPV 9.7 (9.4-12.4) fL Sodium (135-145) mmol/L Potassium (3.5-5.1) mmol/L Chloride (98-107) mmol/L Carbon Dioxide (22-30) mmol/L Anion Gap (5-15) MEQ/L BUN (9-20) mg/dL Creatinine (0.66-1.25) mg/dL Estimated GFR ML/MIN Glucose (74-106) mg/dL Calcium (8.4-10.2) mg/dL Total Bilirubin (0.2-1.3) mg/dL AST (17-59) U/L ALT (0-50) U/L Alkaline Phosphatase (38-126) U/L Serum Total Protein (6.3-8.2) g/dL Albumin (3.5-5.0) g/dL Fluid pH Pending Fluid Glucose 130 (.) mg/dL Fluid Total Protein 1.8 (.) g/dL Fluid LDH 169 (.) IU/L Non-Gen Cyto Rpt Notes SEE COMMENTS 04/15/25 Range/Units 05:29 WBC (4.23-9.07) x10^3/uL RBC (4.63-6.08) x10^6/uL Hgb (13.7-17.5) g/dL Hct (40.1-51.0) % MCV (79.0-92.2) fL MCH (25.7-32.2) pg MCHC (32.3-36.5) g/dL RDW (11.6-14.4) % Plt Count (163-337) x10^3/uL MPV (9.4-12.4) fL Sodium 135 (135-145) mmol/L Potassium 3.6 (3.5-5.1) mmol/L Chloride 102 (98-107) mmol/L Carbon Dioxide 27 (22-30) mmol/L Anion Gap 10.5 (5-15) MEQ/L BUN 13 (9-20) mg/dL Creatinine 0.62 L (0.66-1.25) mg/dL Estimated GFR 102.2 ML/MIN Glucose 140 H (74-106) mg/dL Calcium 8.9 (8.4-10.2) mg/dL Total Bilirubin 0.30 (0.2-1.3) mg/dL AST 24 (17-59) U/L ALT 17 (0-50) U/L Alkaline Phosphatase 41 (38-126) U/L Serum Total Protein 6.1 L (6.3-8.2) g/dL Albumin 3.1 L (3.5-5.0) g/dL Fluid pH Fluid Glucose (.) mg/dL Fluid Total Protein (.) g/dL Fluid LDH (.) IU/L Non-Gen Cyto Rpt Notes Radiology Exams: Radiology Procedures Category Date Time Status CHEST 1 VIEW (PORTABLE) Stat Exams 04/13/25 14:36 Completed ECHO W/2D AND DOPPLER [US] Routine Exams 04/14/25 08:00 Taken Medications: Medications Generic Name Dose Route Start Last Admin Trade Name Freq PRN Reason Stop Dose Admin Acetaminophen 650 mg 04/10/25 11:51 04/10/25 12:21 Acetaminophen 650 Mg Supp.Rect NV 05/10/25 11:50 650 mg Q4H PRN PRN Administration PAIN AND/OR FEVER Acetaminophen 650 mg 04/11/25 08:40 04/12/25 23:27 Acetaminophen 325 Mg Tablet PO 12/29/25 08:39 650 mg Q4H PRN PRN Administration PAIN AND/OR FEVER Hydrocodone Bitart/Acetaminophen 1 tab 04/13/25 17:52 04/15/25 08:38 Hydrocodone/Apap 5/325 1 Tab Tablet PO 04/18/25 17:51 1 tab Q6H PRN PRN Administration PAIN Albuterol Sulfate 2.5 mg 04/06/25 08:18 04/14/25 00:18 Albuterol Sulfate 2.5 Mg/3 Ml [facility] 05/06/25 08:17 2.5 mg Q4HPRN PRN Administration SHORTNESS OF BREATH/WHEEZING Albuterol Sulfate 2 puff 04/06/25 08:30 Albuterol Common Canister Inhaler 05/06/25 08:29 Q4H PRN PRN Albuterol/Ipratropium 3 ml 04/06/25 11:00 04/15/25 15:03 Ipratropium/Albuterol Sulfate 3 Ml Ampul.[facility] 05/06/25 10:59 3 ml QIDRT ALYSSA Administration Diazepam 0 mg 04/06/25 08:17 Diazepam 10 Mg/2 Ml Disp.Syringe IV 05/06/25 08:16 Q2H PRN PRN CIWA SCORE Protocol Furosemide 20 mg 04/13/25 18:15 04/15/25 10:06 Furosemide 20 Mg/Vial IV 05/13/25 18:14 20 mg DAILY ALYSSA Administration Piperacillin Sod/Tazobactam 100 mls @ 200 mls/hr 04/13/25 12:00 04/15/25 11:50 Sod 3.375 gm/ Sodium Chloride IV 04/20/25 11:59 200 mls/hr Q6HT ALYSSA Administration Lactated Ringer's 1,000 mls @ 50 mls/hr 04/15/25 15:30 04/15/25 15:08 Lactated Ringers IV 05/15/25 15:29 50 mls/hr .Q20H ALYSSA Administration Metronidazole 500 mg 04/15/25 17:00 Metronidazole 500 Mg Tablet PO 05/15/25 16:59 QID ALYSSA Nicotine 21 mg 04/06/25 12:30 04/15/25 10:05 Nicotine 21 Mg/Patch Patch TOP 05/06/25 12:29 21 mg Q24H10 ALYSSA Administration Ondansetron HCl 4 mg 04/06/25 08:13 Ondansetron Hcl 4 Mg/2 Ml Vial IV 05/06/25 08:12 Q6H PRN PRN NAUSEA/VOMITING Pantoprazole Sodium 40 mg 04/06/25 10:00 04/15/25 10:06 Pantoprazole 40 Mg Vial IV 05/06/25 09:59 40 mg BID ALYSSA Administration Asmanex Hfa Inhaler 1 each 04/08/25 07:00 04/15/25 06:34 IH 05/08/25 06:59 1 each BIDRT ALYSSA Administration Stiolto Respimat 2 each 04/08/25 19:00 04/14/25 19:16 Inhaler IH 05/08/25 18:59 2 each 1900 ALYSSA Administration Discontinued Medications Generic Name Dose Route Start Last Admin Trade Name Freq PRN Reason Stop Dose Admin Hydrocodone Bitart/Acetaminophen 1 tab 04/11/25 08:33 Hydrocodone/Apap 5/325 1 Tab Tablet PO 04/16/25 08:32 Q4H PRN PRN PAIN Albuterol/Ipratropium 3 ml 04/06/25 03:34 04/06/25 03:43 Ipratropium/Albuterol Sulfate 3 Ml Ampul.Neb IH 04/06/25 03:35 3 ml STAT ONE Administration Albuterol/Ipratropium Confirm 04/06/25 03:42 Ipratropium/Albuterol Sulfate 3 Ml Ampul.Neb Administered 04/06/25 03:43 Dose 3 ml IH .STK-MED ONE Azithromycin 250 mg 04/06/25 10:00 04/06/25 10:42 Azithromycin 250 Mg Tablet PO 04/09/25 10:01 Not Given DAILY ALYSSA Bisacodyl 10 mg 04/09/25 14:13 04/09/25 14:58 Bisacodyl 10 Mg Supp.Rect NV 04/09/25 14:14 10 mg STAT ONE Administration Bisacodyl 10 mg 04/09/25 18:00 04/09/25 18:01 Bisacodyl 10 Mg Supp.Rect NV 04/09/25 18:01 10 mg ONCE ONE Administration Bupivacaine HCl Confirm 04/06/25 05:06 Bupivacaine Hcl 2.5 Mg/Ml 10 Ml Administered 04/06/25 05:07 Dose 10 ml .ROUTE .STK-MED ONE Bupivacaine HCl Confirm 04/15/25 14:51 Bupivacaine Hcl 2.5 Mg/Ml 10 Ml Administered 04/15/25 14:52 Dose 10 ml .ROUTE .STK-MED ONE Bupivacaine HCl Confirm 04/15/25 14:51 Bupivacaine Hcl 2.5 Mg/Ml 10 Ml Administered 04/15/25 14:52 Dose 10 ml .ROUTE .STK-MED ONE Methylprednisolone Sodium 0 mg 04/06/25 10:00 04/06/25 10:12 Succinate 20 mg/ Sterile Water IV 05/06/25 09:59 20 mg 1 ml Q12HT ALYSSA Administration Methylprednisolone Sodium 0 mg 04/13/25 22:00 04/15/25 13:29 Succinate 40 mg/ Sterile Water IV 05/13/25 21:59 1 mg 1 ml Q8HT ALYSSA Administration Device 1 04/11/25 05:30 04/11/25 08:17 Therapuetic Drug Level Monitor Each IJ 04/11/25 05:31 1 1XONLY ONE Administration Device 1 04/12/25 05:30 04/12/25 08:50 Therapuetic Drug Level Monitor Each IJ 04/12/25 05:31 Not Given 1XONLY ONE Device 1 04/12/25 17:30 04/12/25 19:36 Therapuetic Drug Level Monitor Each IJ 04/12/25 17:31 Not Given 1XONLY ONE Device 1 04/14/25 09:30 04/14/25 11:16 Therapuetic Drug Level Monitor Each IJ 04/14/25 09:31 Not Given 1XONLY ONE Dexamethasone Sodium Phosphate Confirm 04/06/25 04:36 Dexamethasone Sodium Phosphate 4 Mg/Ml Vial Administered 04/06/25 04:37 Dose 8 mg .ROUTE .STK-MED ONE Dexamethasone Sodium Phosphate Confirm 04/15/25 15:15 Dexamethasone Sodium Phosphate 4 Mg/Ml Vial Administered 04/15/25 15:16 Dose 8 mg .ROUTE .STK-MED ONE Enoxaparin Sodium 40 mg 04/07/25 12:00 04/13/25 11:35 Enoxaparin Sodium 40 Mg/0.4 Ml Syringe SQ 05/07/25 11:59 Not Given DAILY ALYSSA Etomidate Confirm 04/15/25 15:16 Etomidate 20 Mg/10 Ml Amp Administered 04/15/25 15:17 Dose 20 mg IV .STK-MED ONE Fentanyl Citrate Confirm 04/06/25 04:35 Fentanyl Citrate 100 Mcg/2 Ml* Vial Administered 04/06/25 04:36 Dose 200 mcg .ROUTE .STK-MED ONE Fentanyl Citrate Confirm 04/15/25 15:15 Fentanyl Citrate 100 Mcg/2 Ml* Vial Administered 04/15/25 15:16 Dose 100 mcg .ROUTE .STK-MED ONE Hydromorphone HCl 1 mg 04/06/25 00:33 04/06/25 00:48 Hydromorphone 1 Mg/1ml Inj IV 04/06/25 00:34 1 mg STAT ONE Administration Hydromorphone HCl Confirm 04/06/25 00:46 Hydromorphone 1 Mg/1ml Inj Administered 04/06/25 00:47 Dose 1 mg .ROUTE .STK-MED ONE Hydromorphone HCl 1 mg 04/06/25 03:21 04/06/25 03:28 Hydromorphone 1 Mg/1ml Inj IV 04/06/25 03:22 1 mg STAT ONE Administration Hydromorphone HCl Confirm 04/06/25 03:26 Hydromorphone 1 Mg/1ml Inj Administered 04/06/25 03:27 Dose 1 mg .ROUTE .STK-MED ONE Sodium Chloride 1,000 mls @ 999 mls/hr 04/06/25 00:33 04/06/25 01:47 Sodium Chloride 0.9% 1000 Ml IV 04/06/25 01:33 Infused .Q1H1M STA Infusion Sodium Chloride Confirm 04/06/25 00:46 Sodium Chloride 0.9% 1000 Ml Administered 04/06/25 00:47 Dose 1,000 mls @ ud .ROUTE .STK-MED ONE Piperacillin Sod/Tazobactam 100 mls @ 200 mls/hr 04/06/25 03:17 04/06/25 03:39 Sod 3.375 gm/ Sodium Chloride IV 04/06/25 03:46 200 mls/hr STAT STA 200 mls/hr Administration Sodium Chloride Confirm 04/06/25 03:32 Sodium Chloride 0.9% Administered 04/06/25 03:33 Dose 100 mls @ ud .ROUTE .STK-MED ONE Sodium Chloride Confirm 04/06/25 03:39 Sodium Chloride 0.9% 1000 Ml Administered 04/06/25 03:40 Dose 1,000 mls @ ud .ROUTE .STK-MED ONE Sodium Chloride 1,000 mls @ 100 mls/hr 04/06/25 03:45 04/06/25 03:40 Sodium Chloride 0.9% 1000 Ml IV 05/06/25 03:44 100 mls/hr .Q10H ALYSSA Administration Acetaminophen Confirm 04/06/25 04:54 Ofirmev Administered 04/06/25 04:55 Dose 100 mls @ ud IV .STK-MED ONE Lactated Ringer's Confirm 04/06/25 05:49 Lactated Ringers Administered 04/06/25 05:50 Dose 1,000 mls @ ud IV .STK-MED ONE Potassium Chloride/Dextrose/Sod Cl 1,000 mls @ 50 mls/hr 04/06/25 08:30 04/11/25 08:16 D5w/0.45ns W/ 20meq Kcl 1000 Ml IV 05/06/25 08:29 Not Given .Q20H ALYSSA Cefoxitin Sodium 2 gm in 100 mls @ 200 mls/hr 04/06/25 09:00 04/10/25 00:36 Cefoxitin 2 Gm/100 Ml Nacl Ivpb IV 05/06/25 08:59 200 mls/hr Q8H ALYSSA Administration Metronidazole 500 mg in 100 mls @ 200 mls/hr 04/07/25 12:00 04/14/25 18:15 Flagyl 500 Mg Ivpb IV 05/07/25 11:59 200 mls/hr Q6HT ALYSSA Administration Piperacillin Sod/Tazobactam 100 mls @ 200 mls/hr 04/10/25 12:00 04/13/25 05:09 Sod 3.375 gm/ Sodium Chloride IV 04/13/25 11:59 200 mls/hr Q6HT ALYSSA Administration Vancomycin HCl 500 mg/ Sodium 100 mls @ 100 mls/hr 04/10/25 12:00 04/11/25 07:04 Chloride IV 05/10/25 11:59 100 mls/hr Q6HT ALYSSA Administration Vancomycin HCl 1 gm in 200 mls @ 125 mls/hr 04/11/25 12:00 04/13/25 12:10 Vancomycin 1 Gram/200 Ml Bag IV 05/11/25 11:59 Not Given Q6HT ALYSSA Vancomycin HCl 1 gm in 200 mls @ 125 mls/hr 04/13/25 22:00 Vancomycin 1 Gram/200 Ml Bag IV 05/13/25 21:59 Q12HT ALYSSA Sodium Chloride Confirm 04/15/25 15:24 Sodium Chloride 0.9% Administered 04/15/25 15:25 Dose 100 mls @ ud .ROUTE .STK-MED ONE Ketamine HCl Confirm 04/06/25 05:11 Ketamine Hcl 50 Mg/Ml Administered 04/06/25 05:12 Dose 50 mg .ROUTE .STK-MED ONE Ketorolac Tromethamine Confirm 04/15/25 15:15 Ketorolac Tromethamine 30 Mg/Ml Inj Administered 04/15/25 15:16 Dose 30 mg .ROUTE .STK-MED ONE Lidocaine HCl Confirm 04/06/25 04:35 Lidocaine - Mpf 2% 5 Ml Vial Administered 04/06/25 04:36 Dose 10 ml .ROUTE .STK-MED ONE Lidocaine HCl Confirm 04/15/25 15:15 Lidocaine - Mpf 2% 5 Ml Vial Administered 04/15/25 15:16 Dose 5 ml .ROUTE .STK-MED ONE Magnesium Oxide 400 mg 04/14/25 07:51 04/14/25 10:23 Magnesium Oxide 400 Mg Tablet PO 04/14/25 07:52 400 mg STAT ONE Administration Magnesium Sulfate Confirm 04/06/25 04:54 Magnesium Sulfate Injection Administered 04/06/25 04:55 Dose 1 gm .ROUTE .STK-MED ONE Methylprednisolone 4 mg 04/06/25 08:30 Methylprednisolone 4 Mg Packet PO 05/06/25 08:29 UD [facility] Metronidazole 500 mg 04/15/25 00:00 04/15/25 05:15 Metronidazole 500 Mg Tablet PO 05/15/25 00:00 500 mg Q6H ALYSSA Administration Midazolam HCl Confirm 04/06/25 05:12 Midazolam Hcl 2 Mg/2 Ml Vial Administered 04/06/25 05:13 Dose 2 mg .ROUTE .STK-MED ONE Miscellaneous Information 1 each 04/06/25 08:30 Medication Intervention 1 Each Each 05/06/25 08:29 .RT TO CHECK ALYSSA Miscellaneous Information 1 each 04/06/25 13:00 Medication Intervention 1 Each Each MC 05/06/25 12:59 .RT TO CHECK ALYSSA Morphine Sulfate 2 mg 04/06/25 08:12 04/10/25 21:33 Morphine Sulfate 2 Mg/Ml Inj IV 04/11/25 08:11 2 mg Q2H PRN PRN Administration PAIN Morphine Sulfate 1 mg 04/15/25 14:12 Morphine Sulfate 2 Mg/Ml Inj IM 04/15/25 14:13 STAT ONE Morphine Sulfate 1 mg 04/15/25 14:43 04/15/25 14:48 Morphine Sulfate 2 Mg/Ml Inj IV 04/15/25 14:44 1 mg STAT ONE Administration Non-Formulary Medication 1 each 04/10/25 09:15 Pharmacy Dose Request: Vancomycin 1 Each IV 05/10/25 09:14 ONCALLTOOR [facility] Ondansetron HCl 4 mg 04/06/25 00:35 04/06/25 00:48 Ondansetron Hcl 4 Mg/2 Ml Vial IV 04/06/25 00:36 4 mg STAT ONE Administration Ondansetron HCl Confirm 04/06/25 00:46 Ondansetron Hcl 4 Mg/2 Ml Vial Administered 04/06/25 00:47 Dose 4 mg .ROUTE .STK-MED ONE Ondansetron HCl Confirm 04/06/25 04:35 Ondansetron Hcl 4 Mg/2 Ml Vial Administered 04/06/25 04:36 Dose 8 mg .ROUTE .STK-MED ONE Ondansetron HCl Confirm 04/15/25 15:15 Ondansetron Hcl 4 Mg/2 Ml Vial Administered 04/15/25 15:16 Dose 4 mg .ROUTE .STK-MED ONE Pantoprazole Sodium 40 mg 04/06/25 10:00 Protonix (Pantoprazole) 40 Mg Tablet PO 05/06/25 09:59 QAM [facility] Piperacillin Sod/Tazobactam Sod Confirm 04/06/25 03:26 Piperacillin/Tazobactam Sodium 3.375 Gm Vial Administered 04/06/25 03:27 Dose 3.375 gm IV .STK-MED ONE Piperacillin Sod/Tazobactam Sod Confirm 04/11/25 18:01 Piperacillin/Tazobactam Sodium 3.375 Gm Vial Administered 04/11/25 18:02 Dose 3.375 gm IV .STK-MED ONE Potassium Bicarbonate 25 meq 04/13/25 18:59 04/14/25 16:12 Potassium Bicarbonate 25 Meq Tab PO 12/01/25 19:00 Not Given STAT ONE Potassium Chloride 40 meq 04/13/25 18:59 04/13/25 19:02 Potassium Chloride Tab 10 Meq Tab PO 04/13/25 19:00 40 meq STAT ONE Administration Potassium Chloride Confirm 04/13/25 19:01 Potassium Chloride Tab 10 Meq Tab Administered 04/13/25 19:02 Dose 40 meq .ROUTE .STK-MED ONE Propofol Confirm 04/06/25 04:35 Propofol 200 Mg/20 Ml Vial Administered 04/06/25 04:36 Dose 400 mg IV .STK-MED ONE Propofol Confirm 04/15/25 15:15 Propofol 200 Mg/20 Ml Vial Administered 04/15/25 15:16 Dose 200 mg IV .STK-MED ONE Rocuronium [place] Confirm 04/06/25 04:35 Rocuronium [place] 50 Mg/5 Ml Vial Administered 04/06/25 04:36 Dose 100 mg IV .STK-MED ONE Rocuronium [place] Confirm 04/15/25 15:15 Rocuronium [place] 50 Mg/5 Ml Vial Administered 04/15/25 15:16 Dose 50 mg IV .STK-MED ONE Succinylcholine Chloride Confirm 04/15/25 15:15 Succinylcholine Chloride 200mg/10 Ml Vial Administered 04/15/25 15:16 Dose 100 mg .ROUTE .STK-MED ONE Sugammadex Sodium Confirm 04/06/25 04:35 Sugammadex Sodium 200 Mg/2 Ml Vial Administered 04/06/25 04:36 Dose 400 mg IV .STK-MED ONE Sugammadex Sodium Confirm 04/15/25 15:15 Sugammadex Sodium 200 Mg/2 Ml Vial Administered 04/15/25 15:16 Dose 200 mg IV .STK-MED ONE Vasopressin Confirm 04/06/25 04:54 Vasopressin 20 Unit/Ml Ml Administered 04/06/25 04:55 Dose 20 unit .ROUTE .STK-MED ONE Vasopressin Confirm 04/15/25 15:24 Vasopressin 20 Unit/Ml Ml Administered 04/15/25 15:25 Dose 20 unit .ROUTE .STK-MED ONE Multi-Disciplinary Progress Notes: Multi-Disciplinary Progress Notes 04/15/25 12:38 Case Management Note by Samira Chatman AT [facility] STILL PENDING AT THIS TIME- INSURANCE HAS REQUESTED ADDITIONAL INFORMATION- THIS INFORMATION FAXED TO [facility] AT THIS TIME. PATIENT CONTINUE TO PLAN FOR THAT TO BE HIS DC PLAN. HE REPORTS HIS SON AN TAKE HIM AFTER HE GETS OFF WORK IN THE EVENING. HE STATED HE WOULD HAVE THEM BRING HIS PORTABLE OXYGEN FOR TRANSPORTATION Initialized on 04/15/25 12:38 - END OF NOTE 04/14/25 15:45 Pharmacy Note by Domenico Horowitz Today is day 8 of Flagyl IV. Please review if this is still needed or could be changed to oral. Initialized on 04/14/25 15:45 - END OF NOTE Assessment/Plan (1) Perforated gastric ulcer Current Visit: Yes Status: Acute Code(s): K25.5 - CHRONIC OR UNSPECIFIED GASTRIC ULCER WITH PERFORATION (2) Perforated abdominal viscus Current Visit: Yes Status: Acute Code(s): R19.8 - OTH SYMPTOMS AND SIGNS INVOLVING THE DGSTV SYS AND ABDOMEN (3) Abdominal pain Current Visit: Yes Status: Acute Code(s): R10.9 - UNSPECIFIED ABDOMINAL PAIN (4) Pneumonia Current Visit: No Status: Acute Code(s): J18.9 - PNEUMONIA, UNSPECIFIED ORGANISM (5) COPD exacerbation Current Visit: No Status: Acute Code(s): J44.1 - CHRONIC OBSTRUCTIVE PULMONARY DISEASE W (ACUTE) EXACERBATION (6) Pleural effusion Current Visit: Yes Status: Acute Code(s): J90 - PLEURAL EFFUSION, NOT ELSEWHERE CLASSIFIED (7) Dehydration Current Visit: Yes Status: Resolved Code(s): E86.0 - DEHYDRATION (8) Tobacco abuse Current Visit: No Status: Chronic Code(s): Z72.0 - TOBACCO USE (9) Alcohol intoxication Current Visit: No Status: Resolved (10) RLS (restless legs syndrome) Current Visit: Yes Status: Chronic (11) Chronic back pain Current Visit: Yes Status: Chronic Code(s): M54.9 - DORSALGIA, UNSPECIFIED; G89.29 - OTHER CHRONIC PAIN (12) Lactic acidosis Current Visit: Yes Status: Resolved Code(s): E87.20 - ACIDOSIS, UNSPECIFIED (13) Weakness Current Visit: Yes Status: Acute Assessment & Plan: (1) Perforated gastric ulcer Current Visit: Yes Status: Acute Assessment & Plan: - Advanced to FLD - Pain controlled - IS/ Flutter -Oxygen at 12L oxymask- improving spo2 at 96%- titrate as appropriate - Transition to soft diet per GS and advance as tolerated - + BM's- soft - OK to d/c per GS standpoint however pt has pneumonia and not ready to d/c yet. - PT eval 04/14 - D/C to rehab when accepted - OK to transition diet as tolerated per GS 04/14 - Abd wound bleeding Code(s): K25.5 - CHRONIC OR UNSPECIFIED GASTRIC ULCER WITH PERFORATION (2) Perforated abdominal viscus Current Visit: Yes Status: Acute Assessment & Plan: CTA findings of pneumoperitoneum involving lesser sac, hepatic surface, and mid-abdomen consistent with hollow viscus perforation. Confirmed intraoperatively. IV antibiotics. Monitor for postoperative complications (leak, abscess, sepsis). CBC, CMP reviewed - [place] - every other one as directed by surgeon removed 04/14 04/15 - + Abd wound dehis with bleeding - Pt to surgery today with Dr. Mike Goodwin- awaiting further surg. recs - CBC CMP reviewed - Continue antibiotics Code(s): R19.8 - OTH SYMPTOMS AND SIGNS INVOLVING THE DGSTV SYS AND ABDOMEN (3) Abdominal pain Current Visit: Yes Status: Acute Assessment & Plan: - 2:2 diagnosis plans above Code(s): R10.9 - UNSPECIFIED ABDOMINAL PAIN (4) Pneumonia Current Visit: No Status: Acute Assessment & Plan: - Sputum culture with pseudomonas- continue Zosyn/flagyl - Oxygenation at 12L oxymask down from 15L with spo2 at 97%-titrate as appropriate - WBC normalized - CBC, CMP reviewed - CXR: 04/13 Portable chest again demonstrates mild/moderate bibasilar infiltrates/atelectasis/effusions, worsened on left. Remaining heart and upper lungs unremarkable. - Thoracentesis ordered on left side - No Blood cultures ordered during visit. - Duonebs, Proventil, - Solu-medrol Q8 started today 04/13 04/14 - 2lNC 92% 04/15 - 3lNC 90% - Steroids stopped d/t pt need to go to OR again- can delay healing -Continue IV antibiotics Code(s): J18.9 - PNEUMONIA, UNSPECIFIED ORGANISM (5) COPD exacerbation Current Visit: No Status: Acute Assessment & Plan: - See pneumonia plan above Code(s): J44.1 - CHRONIC OBSTRUCTIVE PULMONARY DISEASE W (ACUTE) EXACERBATION (6) Pleural effusion Current Visit: Yes Status: Acute Assessment & Plan: - As seen on chest CT on 04/10: IMPRESSION: 1. No evidence of pulmonary embolism, unchanged. 2. New bilateral lower lobar consolidations and mild pleural effusion, possible infectious process/ pneumonic patches should be considered, clinical and lab correlation needed. -CXR: 04/13 Portable chest again demonstrates mild/moderate bibasilar infiltrates/atelectasis/effusions, worsened on left. Remaining heart and upper lungs unremarkable. - PT/INR - Thoracentesis labs ordered - US guided thoracentisis today with 700 ml out of left lung - Post procedure CXR: 04/13 Portable chest obtained in expiration demonstrates marked improvement left base effusion with tiny residual consistent with recent thoracentesis. No pneumothorax. Stable mild right base infiltrate/atelectasis/effusion. Remaining heart and lungs unremarkable. No new cardiopulmonary abnormalities. - O2 post procedure 96% oxymask at 12 L - RT to wean O2 as tolerated - BNP in AM - Lasix IV daily started - Consider thoracentesis in AM of Right lung - Echo in AM 04/14 - Echo results pending - Oxygen demand improved to 2lNC at 96% - Will need repeat labs and CXR Sunday - Will continue lasix OP 04/15 - 3lNC - 90% Code(s): J90 - PLEURAL EFFUSION, NOT ELSEWHERE CLASSIFIED (7) Dehydration Current Visit: Yes Status: Resolved Assessment & Plan: - resolved Code(s): E86.0 - DEHYDRATION (8) Tobacco abuse Current Visit: No Status: Chronic Assessment & Plan: Heavy long-term use (34 PPD). Nicotine patch for withdrawal. Reinforced cessation counseling. Code(s): Z72.0 - TOBACCO USE (9) Alcohol intoxication Current Visit: No Status: Resolved Assessment & Plan: Assessment & Plan: History of 6 beers daily CIWA monitoring and withdrawal precautions in place. Counseling provided. (10) RLS (restless legs syndrome) Current Visit: Yes Status: Chronic Assessment & Plan: No home medications. Iron studies reviewed (11) Chronic back pain Current Visit: Yes Status: Chronic Assessment & Plan: No routine home regimen documented. - [place] Q6 PRN Code(s): M54.9 - DORSALGIA, UNSPECIFIED; G89.29 - OTHER CHRONIC PAIN (12) Lactic acidosis Current Visit: Yes Status: Resolved Assessment & Plan: Initial 2.2 improved to 1.1 with IV fluids on admission No evidence of sepsis. Code(s): E87.20 - ACIDOSIS, UNSPECIFIED (13) Weakness Current Visit: Yes Status: Acute Assessment & Plan: -Physical/Occupational Therapy Daily PT/OT to improve strength, mobility, and ADL independence. -Progressive Mobilization Ambulate with assistance; increase distance as tolerated. -Fall Precautions Bed/chair alarms, close supervision during transfers. -Discharge Planning SNF rehab recommended for continued strengthening and functional recovery. VTE: Lovenox PPI: Protonix Dispo: pending acceptance to [facility] rehab Code status: Full code Plan of care time spent > 40 mins Code(s): R53.1 - WEAKNESS Code(s): R53.1 - WEAKNESS
[2025-04-15] MEDS ORDERED: KEFZOL 1 GM ONE (15:44)
[2025-04-15] MEDS ORDERED: DEXMEDETOMIDINE 80 MCG/20ML-NS IV ONE (16:00)
[2025-04-15] MEDS ORDERED: Marcaine 0.5%/Epinephrine 10 ML ONE (16:00)
[2025-04-15] MEDS: MORPHINE SULFATE 2 MG INJ IV PRN (17:26)
[2025-04-15] MEDS: Flagyl 500 MG PO SCH (17:44)
[2025-04-16 05:40] LABS: Hematocrit 30.8 % (40.1-51.0); Hemoglobin 9.2 g/dL (13.7-17.5); Mean Corpuscular Hemoglobin 26.1 pg (25.7-32.2); Mean Corpuscular Hgb Concent. 29.9 g/dL (32.3-36.5); Platelet Count 401 x10^3/uL (163-337); Red Blood Count 3.53 x10^6/uL (4.63-6.08); White Blood Count 13.9 x10^3/uL (4.23-9.07)
[2025-04-16 06:07] LABS: Calcium 8.6 mg/dL (8.4-10.2); Carbon Dioxide 28.0 mmol/L (22-30); Creatinine 1 0.63 mg/dL (0.66-1.25); EST GLOMERULAR FILTRATION RATE 101.7 ML/MIN; Glucose 117.0 mg/dL (74-106); Potassium 3.4 mmol/L (3.5-5.1); SGOT/AST 30.0 U/L (17-59); SGPT/ALT 17.0 U/L (0-50); Total Protein 5.9 g/dL (6.3-8.2)
--- NOTE | 2025-04-16 15:03 | PCM.NOTE ---
Date and Time: 04/16/25 1456 Subjective Assessment: 04/13/25 Mr. Patel is a 69-year-old male with COPD, emphysema, restless leg syndrome, chronic back pain, heavy alcohol use, and heavy tobacco use was admitted on 04/05/25 with severe epigastric pain. Imaging revealed free intraperitoneal air and a perforated gastric ulcer, for which he underwent emergent Claude patch repair with gastrojejunostomy. Postoperatively, he required BiPAP but was later weaned to nasal cannula, remained NPO, and was started on IV antibiotics and pain control. His course was complicated by hospital-acquired pneumonia, requiring escalation to vancomycin, Zosyn, and Flagyl. By 04/11, he was tolerating a clear liquid diet, had mild incisional pain, and remained afebrile, though he continued to experience significant weakness and functional decline, prompting recommendation for SNF rehabilitation. On 04/12, his oxygen requirement decreased to 12 L via Oxymizer, cough and sputum production improved, and sputum cultures confirmed Pseudomonas, allowing discontinuation of vancomycin while continuing Zosyn and Flagyl. On 04/13, chest x-ray showed increased left pleural effusion, and thoracentesis removed 700 mL. Labs revealed hemoglobin 9.2, normalized potassium at 3.4, and WBC within normal range. He remains on 12 L Oxymizer with oxygen saturation of 97%, reports feeling better aside from dyspnea, and is medically stable from a surgical standpoint but not yet ready for discharge due to poor oxygenation. Case management is arranging post-acute rehabilitation placement. 04/14/25 The patient is sitting up in a chair today and reports feeling much better, expressing readiness for discharge to [facility] rehab once accepted. He requests that his son drive him to the facility, which case management has approved. Magnesium is low at 1.5 and has been replaced, with plans to continue trending. Respiratory status has improved significantly, as he transitioned from a high-flow oxymask at 12 L yesterday to 2 L nasal cannula today with oxygen saturation at 92%. This improvement followed thoracentesis yesterday, during which 700 mL was removed from the left lung. Post-procedure chest x-ray showed a mild right effusion, and Lasix 20 mg daily was initiated, resulting in improved breathing. Echocardiogram results remain pending. He is tolerating a soft diet and prefers not to advance at this time. Surgery has signed off, and discharge is appropriate from the hospitalist standpoint. White blood cell count is normal today. Outpatient follow-up with pulmonology is required, along with repeat labs this Sunday and a chest x-ray to monitor pleural effusion status. The patient currently denies any further concerns. 04/15/25 The patient was resting in bed this morning when pt was found to have blood on his gown and sheets, requiring a dressing change. Nurse Lashae Tamayo RN, was asked to notify surgery of the findings. Yesterday, nurse Maurice Pardo RN, had been instructed by surgery to remove every other staple, and today the patient developed abdominal wound dehiscence. Surgery was notified, and the patient was taken to the operating room this afternoon by Dr. Mike Goodwin. He developed fever and increased pain associated with this incident. Current treatment includes Zosyn and Flagyl, with steroids discontinued. White blood cell count is elevated at 11.2. Lung sounds have improved, and he remains on 3 L oxygen with saturation at 90%. The patient had originally planned for transfer to rehab today; however, due to this complication, discharge has been delayed. Lovenox continues to be held in the setting of surgery, and further postoperative recommendations from the surgical team are pending. 04/16/25 The patient is resting in bed on postoperative day one following abdominal wound dehiscence, for which he underwent exploratory laparotomy by general surgery. A wound VAC and abdominal binder are in place. He reports being afraid to take a deep breath or cough, and lung sounds are wheezy throughout. He was encouraged to use the incentive spirometer and instructed to brace himself with a pillow while coughing to help prevent pneumonia. He remains on Zosyn and Flagyl. Potassium was 3.4 and has been replaced. His white blood cell count is elevated at 13.9 postoperatively, though he did not have a fever overnight. Due to this surgical setback, general surgery recommends that he remain hospitalized until Sunday. A [id number] review was completed with his insurance company, and the medical bill processor advised resubmitting information once the patient is stable and ready for discharge, as rehab cannot be approved at this time given his current condition. He is on 3 L nasal cannula with oxygen saturation at 90%. Pain is well controlled, and he denies chest pain, nausea, vomiting, or diarrhea. He did have a small, soft BM today. - Review of Systems Constitutional: No Fever, No Chills Eyes: No Symptoms Ears, Nose, & Throat: No Symptoms Respiratory: Short Of Breath, No Cough Cardiac: No Chest Pain, No Edema, No Syncope Abdominal/Gastrointestinal: Abdominal Pain, No Nausea, No Vomiting, No Diarrhea Genitourinary Symptoms: No Dysuria Musculoskeletal: No Back Pain, No Neck Pain Skin: No Rash Neurological: No Dizziness, No Focal Weakness, No Sensory Changes Psychological: No Symptoms Endocrine: No Symptoms Hematologic/Lymphatic: No Symptoms Immunological/Allergic: No Symptoms Objective Exam General Appearance: no apparent distress, alert Neurologic Exam: alert, 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, cooperative, normal mood/affect, nml ce rebellar function, sensation nml, No motor deficits Skin Exam: normal color, warm, dry Wound Assessment: Skin/Wound Assessment Wound/Incision Assessment Start: 04/06/25 07:58 Text: Status: Active Freq: Q4H Protocol: Document 04/16/25 12:30 RB (Rec: 04/16/25 12:30 RB [id number]) Wound/Incision Assessment Posterior Back Wound Assessment Shift Assessment Wound Type Puncture Abdomen Wound Assessment Shift Assessment Dressing Status Dry & Intact Drainage Amount None Comment Wound vac in place, working, Abd binder is place Wound Photo Photo Taken No Eye Exam: PERRL, EOMI, eyes nml inspection Ears, Nose, Throat Exam: normal ENT inspection, pharynx normal, moist mucous membranes Neck Exam: normal inspection, non-tender, supple, full range of motion Respiratory Exam: wheezing, No respiratory distress Cardiovascular Exam: regular rate/rhythm, normal heart sounds Gastrointestinal/Abdomen Exam: soft, tenderness, No mass Extremity Exam: normal inspection, normal range of motion Back Exam: normal inspection, normal range of motion, No CVA tenderness, No vertebral tenderness Male Genitalia Exam: deferred Rectal Exam: deferred Objective Data Vital Signs: Vital Signs - 24 hr Temp Pulse Resp BP Pulse Ox 04/16/25 14:35 93 H 22 93 L 04/16/25 13:36 22 04/16/25 11:53 98.1 F 96 H 22 171/77 95 04/16/25 10:39 92 H 24 91 L 04/16/25 09:41 22 04/16/25 07:26 98.2 F 86 18 141/71 90 L 04/16/25 05:26 80 20 98 04/16/25 05:00 20 04/16/25 03:57 98.2 F 85 18 183/73 92 L 04/16/25 01:00 22 04/16/25 00:00 97.5 F 83 16 154/75 94 L 04/15/25 21:00 22 04/15/25 19:23 93 H 22 93 L 04/15/25 19:15 93 H 150/70 95 04/15/25 18:20 100 H 155/74 04/15/25 17:50 93 H 150/70 04/15/25 17:25 98 H 151/70 04/15/25 17:20 20 04/15/25 17:10 97.8 F 100 H 20 164/77 93 L 04/15/25 15:03 94 H 18 93 L 04/15/25 15:02 99.3 F 92 H 26 H 163/83 93 L Pain Assessment - Last Documented Pain Intensity [Abdomen] 1 Pain Intensity 8 Pain Scale Used 0-10 Pain Scale Intake and Output: Intake & Output 04/14/25 04/15/25 04/16/25 04/17/25 11:59 11:59 11:59 11:59 Intake Total 2495 720 1580 Output Total 1700 1700 1300 700 Balance 795 -980 280 -700 Weight 70 kg Lab Results: Lab Results-Last 24 Hours 04/16/25 04/16/25 Range/Units 05:24 05:24 WBC 13.9 H (4.23-9.07) x10^3/uL RBC 3.53 L (4.63-6.08) x10^6/uL Hgb 9.2 L (13.7-17.5) g/dL Hct 30.8 L (40.1-51.0) % MCV 87.3 (79.0-92.2) fL MCH 26.1 (25.7-32.2) pg MCHC 29.9 L (32.3-36.5) g/dL RDW 16.9 H (11.6-14.4) % Plt Count 401 H (163-337) x10^3/uL MPV 9.0 L (9.4-12.4) fL Sodium 136 (135-145) mmol/L Potassium 3.4 L (3.5-5.1) mmol/L Chloride 101 (98-107) mmol/L Carbon Dioxide 28 (22-30) mmol/L Anion Gap 10.5 (5-15) MEQ/L BUN 18 (9-20) mg/dL Creatinine 0.63 L (0.66-1.25) mg/dL Estimated GFR 101.7 ML/MIN Glucose 117 H (74-106) mg/dL Calcium 8.6 (8.4-10.2) mg/dL Total Bilirubin 0.30 (0.2-1.3) mg/dL AST 30 (17-59) U/L ALT 17 (0-50) U/L Alkaline Phosphatase 41 (38-126) U/L Serum Total Protein 5.9 L (6.3-8.2) g/dL Albumin 3.0 L (3.5-5.0) g/dL Medications: Medications Generic Name Dose Route Start Last Admin Trade Name Freq PRN Reason Stop Dose Admin Acetaminophen 650 mg 04/10/25 11:51 04/10/25 12:21 Acetaminophen 650 Mg Supp.Rect [place] 05/10/25 11:50 650 mg Q4H PRN PRN Administration PAIN AND/OR FEVER Acetaminophen 650 mg 04/11/25 08:40 04/16/25 06:15 Acetaminophen 325 Mg Tablet PO 05/11/25 08:39 650 mg Q4H PRN PRN Administration PAIN AND/OR FEVER Hydrocodone Bitart/Acetaminophen 1 tab 04/13/25 17:52 04/15/25 08:38 Hydrocodone/Apap 5/325 1 Tab Tablet PO 04/21/25 17:51 1 tab Q6H PRN PRN Administration PAIN Albuterol Sulfate 2.5 mg 04/06/25 08:18 04/14/25 00:18 Albuterol Sulfate 2.5 Mg/3 Ml Neb IH 05/06/25 08:17 2.5 mg Q4HPRN PRN Administration SHORTNESS OF BREATH/WHEEZING Albuterol Sulfate 2 puff 04/06/25 08:30 Albuterol Common Canister Inhaler IH 05/06/25 08:29 Q4H PRN PRN Albuterol/Ipratropium 3 ml 04/06/25 11:00 04/16/25 14:33 Ipratropium/Albuterol Sulfate 3 Ml Ampul.Neb IH 05/06/25 10:59 3 ml QIDRT ALYSSA Administration Diazepam 0 mg 04/06/25 08:17 Diazepam 10 Mg/2 Ml Disp.Syringe IV 05/06/25 08:16 Q2H PRN PRN CIWA SCORE Protocol Furosemide 20 mg 04/13/25 18:15 04/16/25 10:52 Furosemide 20 Mg/Vial IV 05/13/25 18:14 20 mg DAILY ALYSSA Administration Piperacillin Sod/Tazobactam 100 mls @ 200 mls/hr 04/13/25 12:00 04/16/25 12:23 Sod 3.375 gm/ Sodium Chloride IV 04/20/25 11:59 200 mls/hr Q6HT ALYSSA Administration Metronidazole 500 mg 04/15/25 17:00 04/16/25 13:11 Metronidazole 500 Mg Tablet PO 05/15/25 16:59 500 mg QID ALYSSA Administration Morphine Sulfate 1 mg 04/15/25 17:18 04/16/25 14:21 Morphine Sulfate 2 Mg/Ml Inj IV 04/20/25 17:17 1 mg Q4H PRN PRN Administration SEVERE PAIN Nicotine 21 mg 04/06/25 12:30 04/16/25 10:52 Nicotine 21 Mg/Patch Patch TOP 05/06/25 12:29 21 mg Q24H10 ALYSSA Administration Ondansetron HCl 4 mg 04/06/25 08:13 Ondansetron Hcl 4 Mg/2 Ml Vial IV 05/06/25 08:12 Q6H PRN PRN NAUSEA/VOMITING Pantoprazole Sodium 40 mg 04/06/25 10:00 04/16/25 10:52 Pantoprazole 40 Mg Vial IV 05/06/25 09:59 40 mg BID ALYSSA Administration Asmanex Hfa Inhaler 1 each 04/08/25 07:00 04/16/25 05:26 IH 05/08/25 06:59 1 each BIDRT ALYSSA Administration Stiolto Respimat 2 each 04/08/25 19:00 04/15/25 19:22 Inhaler IH 05/08/25 18:59 2 each 1900 ALYSSA Administration Discontinued Medications Generic Name Dose Route Start Last Admin Trade Name Freq PRN Reason Stop Dose Admin Hydrocodone Bitart/Acetaminophen 1 tab 04/11/25 08:33 Hydrocodone/Apap 5/325 1 Tab Tablet PO 04/16/25 08:32 Q4H PRN PRN PAIN Albuterol/Ipratropium 3 ml 04/06/25 03:34 04/06/25 03:43 Ipratropium/Albuterol Sulfate 3 Ml Ampul.Neb IH 04/06/25 03:35 3 ml STAT ONE Administration Albuterol/Ipratropium Confirm 04/06/25 03:42 Ipratropium/Albuterol Sulfate 3 Ml Ampul.Neb Administered 04/06/25 03:43 Dose 3 ml IH .STK-MED ONE Azithromycin 250 mg 04/06/25 10:00 04/06/25 10:42 Azithromycin 250 Mg Tablet PO 04/09/25 10:01 Not Given DAILY ALYSSA Bisacodyl 10 mg 04/09/25 14:13 04/09/25 14:58 Bisacodyl 10 Mg Supp.Rect AK 04/09/25 14:14 10 mg STAT ONE Administration Bisacodyl 10 mg 04/09/25 18:00 04/09/25 18:01 Bisacodyl 10 Mg Supp.Rect AK 04/09/25 18:01 10 mg ONCE ONE Administration Bupivacaine HCl Confirm 04/06/25 05:06 Bupivacaine Hcl 2.5 Mg/Ml 10 Ml Administered 04/06/25 05:07 Dose 10 ml .ROUTE .STK-MED ONE Bupivacaine HCl Confirm 04/15/25 14:51 Bupivacaine Hcl 2.5 Mg/Ml 10 Ml Administered 04/15/25 14:52 Dose 10 ml .ROUTE .STK-MED ONE Bupivacaine HCl Confirm 04/15/25 14:51 Bupivacaine Hcl 2.5 Mg/Ml 10 Ml Administered 04/15/25 14:52 Dose 10 ml .ROUTE .STK-MED ONE Bupivacaine HCl/Epinephrine Bitart Confirm 04/15/25 16:00 Bupivacaine Hcl/Epinephrine 10 Ml Vial Administered 04/15/25 16:01 Dose 30 ml .ROUTE .STK-MED ONE Cefazolin Sodium Confirm 04/15/25 15:44 Cefazolin Sodium 1 Gm Vial Administered 04/15/25 15:45 Dose 2 g .ROUTE .STK-MED ONE Methylprednisolone Sodium 0 mg 04/06/25 10:00 04/06/25 10:12 Succinate 20 mg/ Sterile Water IV 05/06/25 09:59 20 mg 1 ml Q12HT ALYSSA Administration Methylprednisolone Sodium 0 mg 04/13/25 22:00 04/15/25 13:29 Succinate 40 mg/ Sterile Water IV 05/13/25 21:59 1 mg 1 ml Q8HT ALYSSA Administration Device 1 04/11/25 05:30 04/11/25 08:17 Therapuetic Drug Level Monitor Each IJ 04/11/25 05:31 1 1XONLY ONE Administration Device 1 04/12/25 05:30 04/12/25 08:50 Therapuetic Drug Level Monitor Each IJ 04/12/25 05:31 Not Given 1XONLY ONE Device 1 04/12/25 17:30 04/12/25 19:36 Therapuetic Drug Level Monitor Each IJ 04/12/25 17:31 Not Given 1XONLY ONE Device 1 04/14/25 09:30 04/14/25 11:16 Therapuetic Drug Level Monitor Each IJ 04/14/25 09:31 Not Given 1XONLY ONE Dexamethasone Sodium Phosphate Confirm 04/06/25 04:36 Dexamethasone Sodium Phosphate 4 Mg/Ml Vial Administered 04/06/25 04:37 Dose 8 mg .ROUTE .STK-MED ONE Dexamethasone Sodium Phosphate Confirm 04/15/25 15:15 Dexamethasone Sodium Phosphate 4 Mg/Ml Vial Administered 04/15/25 15:16 Dose 8 mg .ROUTE .STK-MED ONE Dexmedetomidine/Sodium Chloride Confirm 04/15/25 16:00 Dexmedetomidine In 0.9 % Nacl 80 Mcg/20 Ml Vial Administered 04/15/25 16:01 Dose 80 mcg IV .STK-MED ONE Enoxaparin Sodium 40 mg 04/07/25 12:00 04/13/25 11:35 Enoxaparin Sodium 40 Mg/0.4 Ml Syringe SQ 05/07/25 11:59 Not Given DAILY ALYSSA Etomidate Confirm 04/15/25 15:16 Etomidate 20 Mg/10 Ml Amp Administered 04/15/25 15:17 Dose 20 mg IV .STK-MED ONE Fentanyl Citrate Confirm 04/06/25 04:35 Fentanyl Citrate 100 Mcg/2 Ml* Vial Administered 04/06/25 04:36 Dose 200 mcg .ROUTE .STK-MED ONE Fentanyl Citrate Confirm 04/15/25 15:15 Fentanyl Citrate 100 Mcg/2 Ml* Vial Administered 04/15/25 15:16 Dose 100 mcg .ROUTE .STK-MED ONE Hydromorphone HCl 1 mg 04/06/25 00:33 04/06/25 00:48 Hydromorphone 1 Mg/1ml Inj IV 04/06/25 00:34 1 mg STAT ONE Administration Hydromorphone HCl Confirm 04/06/25 00:46 Hydromorphone 1 Mg/1ml Inj Administered 04/06/25 00:47 Dose 1 mg .ROUTE .STK-MED ONE Hydromorphone HCl 1 mg 04/06/25 03:21 04/06/25 03:28 Hydromorphone 1 Mg/1ml Inj IV 04/06/25 03:22 1 mg STAT ONE Administration Hydromorphone HCl Confirm 04/06/25 03:26 Hydromorphone 1 Mg/1ml Inj Administered 04/06/25 03:27 Dose 1 mg .ROUTE .STK-MED ONE Sodium Chloride 1,000 mls @ 999 mls/hr 04/06/25 00:33 04/06/25 01:47 Sodium Chloride 0.9% 1000 Ml IV 04/06/25 01:33 Infused .Q1H1M STA Infusion Sodium Chloride Confirm 04/06/25 00:46 Sodium Chloride 0.9% 1000 Ml Administered 04/06/25 00:47 Dose 1,000 mls @ ud .ROUTE .STK-MED ONE Piperacillin Sod/Tazobactam 100 mls @ 200 mls/hr 04/06/25 03:17 04/06/25 03:39 Sod 3.375 gm/ Sodium Chloride IV 04/06/25 03:46 200 mls/hr STAT STA 200 mls/hr Administration Sodium Chloride Confirm 04/06/25 03:32 Sodium Chloride 0.9% Administered 04/06/25 03:33 Dose 100 mls @ ud .ROUTE .STK-MED ONE Sodium Chloride Confirm 04/06/25 03:39 Sodium Chloride 0.9% 1000 Ml Administered 04/06/25 03:40 Dose 1,000 mls @ ud .ROUTE .STK-MED ONE Sodium Chloride 1,000 mls @ 100 mls/hr 04/06/25 03:45 04/06/25 03:40 Sodium Chloride 0.9% 1000 Ml IV 05/06/25 03:44 100 mls/hr .Q10H ALYSSA Administration Acetaminophen Confirm 04/06/25 04:54 Ofirmev Administered 04/06/25 04:55 Dose 100 mls @ ud IV .STK-MED ONE Lactated Ringer's Confirm 04/06/25 05:49 Lactated Ringers Administered 04/06/25 05:50 Dose 1,000 mls @ ud IV .STK-MED ONE Potassium Chloride/Dextrose/Sod Cl 1,000 mls @ 50 mls/hr 04/06/25 08:30 04/11/25 08:16 D5w/0.45ns W/ 20meq Kcl 1000 Ml IV 05/06/25 08:29 Not Given .Q20H ALYSSA Cefoxitin Sodium 2 gm in 100 mls @ 200 mls/hr 04/06/25 09:00 04/10/25 00:36 Cefoxitin 2 Gm/100 Ml Nacl Ivpb IV 05/06/25 08:59 200 mls/hr Q8H ALYSSA Administration Metronidazole 500 mg in 100 mls @ 200 mls/hr 04/07/25 12:00 04/14/25 18:15 Flagyl 500 Mg Ivpb IV 05/07/25 11:59 200 mls/hr Q6HT ALYSSA Administration Piperacillin Sod/Tazobactam 100 mls @ 200 mls/hr 04/10/25 12:00 04/13/25 05:09 Sod 3.375 gm/ Sodium Chloride IV 04/13/25 11:59 200 mls/hr Q6HT ALYSSA Administration Vancomycin HCl 500 mg/ Sodium 100 mls @ 100 mls/hr 04/10/25 12:00 04/11/25 07:04 Chloride IV 05/10/25 11:59 100 mls/hr Q6HT ALYSSA Administration Vancomycin HCl 1 gm in 200 mls @ 125 mls/hr 04/11/25 12:00 04/13/25 12:10 Vancomycin 1 Gram/200 Ml Bag IV 05/11/25 11:59 Not Given Q6HT ALYSSA Vancomycin HCl 1 gm in 200 mls @ 125 mls/hr 04/13/25 22:00 Vancomycin 1 Gram/200 Ml Bag IV 05/13/25 21:59 Q12HT ALYSSA Lactated Ringer's 1,000 mls @ 50 mls/hr 04/15/25 15:30 04/15/25 23:37 Lactated Ringers IV 05/15/25 15:29 50 mls/hr .Q20H ALYSSA Administration Sodium Chloride Confirm 04/15/25 15:24 Sodium Chloride 0.9% Administered 04/15/25 15:25 Dose 100 mls @ ud .ROUTE .STK-MED ONE Ketamine HCl Confirm 04/06/25 05:11 Ketamine Hcl 50 Mg/Ml Administered 04/06/25 05:12 Dose 50 mg .ROUTE .STK-MED ONE Ketorolac Tromethamine Confirm 04/15/25 15:15 Ketorolac Tromethamine 30 Mg/Ml Inj Administered 04/15/25 15:16 Dose 30 mg .ROUTE .STK-MED ONE Lidocaine HCl Confirm 04/06/25 04:35 Lidocaine - Mpf 2% 5 Ml Vial Administered 04/06/25 04:36 Dose 10 ml .ROUTE .STK-MED ONE Lidocaine HCl Confirm 04/15/25 15:15 Lidocaine - Mpf 2% 5 Ml Vial Administered 04/15/25 15:16 Dose 5 ml .ROUTE .STK-MED ONE Magnesium Oxide 400 mg 04/14/25 07:51 04/14/25 10:23 Magnesium Oxide 400 Mg Tablet PO 04/14/25 07:52 400 mg STAT ONE Administration Magnesium Sulfate Confirm 04/06/25 04:54 Magnesium Sulfate Injection Administered 04/06/25 04:55 Dose 1 gm .ROUTE .STK-MED ONE Methylprednisolone 4 mg 04/06/25 08:30 Methylprednisolone 4 Mg Packet PO 05/06/25 08:29 UD ALYSSA Metronidazole 500 mg 04/15/25 00:00 04/15/25 05:15 Metronidazole 500 Mg Tablet PO 05/15/25 00:00 500 mg Q6H ALYSSA Administration Midazolam HCl Confirm 04/06/25 05:12 Midazolam Hcl 2 Mg/2 Ml Vial Administered 04/06/25 05:13 Dose 2 mg .ROUTE .STK-MED ONE Miscellaneous Information 1 each 04/06/25 08:30 Medication Intervention 1 Each Each 05/06/25 08:29 .RT TO CHECK ALYSSA Miscellaneous Information 1 each 04/06/25 13:00 Medication Intervention 1 Each Each 05/06/25 12:59 .RT TO CHECK ALYSSA Morphine Sulfate 2 mg 04/06/25 08:12 04/10/25 21:33 Morphine Sulfate 2 Mg/Ml Inj IV 04/11/25 08:11 2 mg Q2H PRN PRN Administration PAIN Morphine Sulfate 1 mg 04/15/25 14:12 Morphine Sulfate 2 Mg/Ml Inj IM 04/15/25 14:13 STAT ONE Morphine Sulfate 1 mg 04/15/25 14:43 04/15/25 14:48 Morphine Sulfate 2 Mg/Ml Inj IV 04/15/25 14:44 1 mg STAT ONE Administration Non-Formulary Medication 1 each 04/10/25 09:15 Pharmacy Dose Request: Vancomycin 1 Each IV 05/10/25 09:14 [facility] Ondansetron HCl 4 mg 04/06/25 00:35 04/06/25 00:48 Ondansetron Hcl 4 Mg/2 Ml Vial IV 04/06/25 00:36 4 mg STAT ONE Administration Ondansetron HCl Confirm 04/06/25 00:46 Ondansetron Hcl 4 Mg/2 Ml Vial Administered 04/06/25 00:47 Dose 4 mg .ROUTE .STK-MED ONE Ondansetron HCl Confirm 04/06/25 04:35 Ondansetron Hcl 4 Mg/2 Ml Vial Administered 04/06/25 04:36 Dose 8 mg .ROUTE .STK-MED ONE Ondansetron HCl Confirm 04/15/25 15:15 Ondansetron Hcl 4 Mg/2 Ml Vial Administered 04/15/25 15:16 Dose 4 mg .ROUTE .STK-MED ONE Pantoprazole Sodium 40 mg 04/06/25 10:00 Protonix (Pantoprazole) 40 Mg Tablet PO 05/06/25 09:59 [facility] Piperacillin Sod/Tazobactam Sod Confirm 04/06/25 03:26 Piperacillin/Tazobactam Sodium 3.375 Gm Vial Administered 04/06/25 03:27 Dose 3.375 gm IV .STK-MED ONE Piperacillin Sod/Tazobactam Sod Confirm 04/11/25 18:01 Piperacillin/Tazobactam Sodium 3.375 Gm Vial Administered 04/11/25 18:02 Dose 3.375 gm IV .STK-MED ONE Potassium Bicarbonate 25 meq 04/13/25 18:59 04/14/25 16:12 Potassium Bicarbonate 25 Meq Tab PO 04/13/25 19:00 Not Given STAT ONE Potassium Chloride 40 meq 04/13/25 18:59 04/13/25 19:02 Potassium Chloride Tab 10 Meq Tab PO 04/13/25 19:00 40 meq STAT ONE Administration Potassium Chloride Confirm 04/13/25 19:01 Potassium Chloride Tab 10 Meq Tab Administered 04/13/25 19:02 Dose 40 meq .ROUTE .STK-MED ONE Propofol Confirm 04/06/25 04:35 Propofol 200 Mg/20 Ml Vial Administered 04/06/25 04:36 Dose 400 mg IV .STK-MED ONE Propofol Confirm 04/15/25 15:15 Propofol 200 Mg/20 Ml Vial Administered 04/15/25 15:16 Dose 200 mg IV .STK-MED ONE Rocuronium [place] Confirm 04/06/25 04:35 Rocuronium [place] 50 Mg/5 Ml Vial Administered 04/06/25 04:36 Dose 100 mg IV .STK-MED ONE Rocuronium [place] Confirm 04/15/25 15:15 Rocuronium [place] 50 Mg/5 Ml Vial Administered 04/15/25 15:16 Dose 50 mg IV .STK-MED ONE Succinylcholine Chloride Confirm 04/15/25 15:15 Succinylcholine Chloride 200mg/10 Ml Vial Administered 04/15/25 15:16 Dose 100 mg .ROUTE .STK-MED ONE Sugammadex Sodium Confirm 04/06/25 04:35 Sugammadex Sodium 200 Mg/2 Ml Vial Administered 04/06/25 04:36 Dose 400 mg IV .STK-MED ONE Sugammadex Sodium Confirm 04/15/25 15:15 Sugammadex Sodium 200 Mg/2 Ml Vial Administered 04/15/25 15:16 Dose 200 mg IV .STK-MED ONE Vasopressin Confirm 04/06/25 04:54 Vasopressin 20 Unit/Ml Ml Administered 04/06/25 04:55 Dose 20 unit .ROUTE .STK-MED ONE Vasopressin Confirm 04/15/25 15:24 Vasopressin 20 Unit/Ml Ml Administered 04/15/25 15:25 Dose 20 unit .ROUTE .STK-MED ONE Multi-Disciplinary Progress Notes: Multi-Disciplinary Progress Notes 04/16/25 13:47 Case Management Note by Samira Chatman PATIENT CONTINUES TO PLAN TO GO TO [facility] FOR REHAB WHEN MEDICALLY READY [facility] WAS FAXED CLINICAL UPDATE FOR AUTH THEY WERE ALSO NOTIFIED ABOUT WOUND VAC IN PLACE- THEY WILL NEED TO ORDER VAC IF PATIENT DISCHARGES WITH VAC IN PLACE. WAITING ON SURGEON TO ROUND FOR PLAN OF CARE Initialized on 04/16/25 13:47 - END OF NOTE 04/16/25 10:46 Physical Therapy Note by Cassandra([id number])Renae ASSESSED WOUND VAC DRESSING AND THAT VAC IS WORKING. DRESSING INTACT AND VAC FUNCTIONING WELL ON POST-OP ABD WOUND. PT. WILL NEED A HOME UNIT WHEN HE DISCHA RGES TO SNF FOR REHAB. WILL ATTEMPT TO TX FOR FUNCTIONAL MOBILITY AND GAIT LATER PT. DYSPNEIC AFTER BATH W/ ASSIST OF NURSING. O2 SATS 91% ON 3L. Initialized on 04/16/25 10:46 - END OF NOTE Assessment/Plan (1) Perforated gastric ulcer Current Visit: Yes Status: Acute Code(s): K25.5 - CHRONIC OR UNSPECIFIED GASTRIC ULCER WITH PERFORATION (2) Perforated abdominal viscus Current Visit: Yes Status: Acute Code(s): R19.8 - OTH SYMPTOMS AND SIGNS INVOLVING THE DGSTV SYS AND ABDOMEN (3) Abdominal pain Current Visit: Yes Status: Acute Code(s): R10.9 - UNSPECIFIED ABDOMINAL PAIN (4) Pneumonia Current Visit: No Status: Acute Code(s): J18.9 - PNEUMONIA, UNSPECIFIED ORGANISM (5) COPD exacerbation Current Visit: No Status: Acute Code(s): J44.1 - CHRONIC OBSTRUCTIVE PULMONARY DISEASE W (ACUTE) EXACERBATION (6) Pleural effusion Current Visit: Yes Status: Acute Code(s): J90 - PLEURAL EFFUSION, NOT ELSEWHERE CLASSIFIED (7) Dehydration Current Visit: Yes Status: Resolved Code(s): E86.0 - DEHYDRATION (8) Tobacco abuse Current Visit: No Status: Chronic Code(s): Z72.0 - TOBACCO USE (9) Alcohol intoxication Current Visit: No Status: Resolved (10) RLS (restless legs syndrome) Current Visit: Yes Status: Chronic (11) Chronic back pain Current Visit: Yes Status: Chronic Code(s): M54.9 - DORSALGIA, UNSPECIFIED; G89.29 - OTHER CHRONIC PAIN (12) Lactic acidosis Current Visit: Yes Status: Resolved Code(s): E87.20 - ACIDOSIS, UNSPECIFIED (13) Weakness Current Visit: Yes Status: Acute Assessment & Plan: (1) Perforated gastric ulcer Current Visit: Yes Status: Acute Assessment & Plan: - Advanced to FLD - Pain controlled - IS/ Flutter -Oxygen at 12L oxymask- improving spo2 at 96%- titrate as appropriate - Transition to soft diet per GS and advance as tolerated - + BM's- soft - OK to d/c per GS standpoint however pt has pneumonia and not ready to d/c yet. - PT eval 04/14 - D/C to rehab when accepted - OK to transition diet as tolerated per GS 04/14 - Abd wound bleeding-surgery notified by RN 04/15 - Bleeding resolved, dressing CDI Code(s): K25.5 - CHRONIC OR UNSPECIFIED GASTRIC ULCER WITH PERFORATION (2) Perforated abdominal viscus Current Visit: Yes Status: Acute Assessment & Plan: CTA findings of pneumoperitoneum involving lesser sac, hepatic surface, and mid-abdomen consistent with hollow viscus perforation. Confirmed intraoperatively. IV antibiotics. Monitor for postoperative complications (leak, abscess, sepsis). CBC, CMP reviewed - [place] - every other one as directed by surgeon removed 04/14 04/15 - + Abd wound dehis with bleeding - Pt to surgery today with Dr. Mike Goodwin- awaiting further surg. recs - CBC CMP reviewed - Continue antibiotics - Morphine PRN added - Made NPO 04/16 - POD #1 from Exp lap - Dressing CDI with abd binder in place - IS - Pillow to brace for coughs - CBC, CMP reviewed - WBC 13.9 - No fever overnight - Change to full liquid diet per GS - SCD's until ok by surgery to start anticoagulation Code(s): R19.8 - OTH SYMPTOMS AND SIGNS INVOLVING THE DGSTV SYS AND ABDOMEN (3) Abdominal pain Current Visit: Yes Status: Acute Assessment & Plan: - 2:2 diagnosis plans above Code(s): R10.9 - UNSPECIFIED ABDOMINAL PAIN (4) Pneumonia Current Visit: No Status: Acute Assessment & Plan: - Sputum culture with pseudomonas- continue Zosyn/flagyl - Oxygenation at 12L oxymask down from 15L with spo2 at 97%-titrate as appropriate - WBC normalized - CBC, CMP reviewed - CXR: 04/13 Portable chest again demonstrates mild/moderate bibasilar infiltrates/atelectasis/effusions, worsened on left. Remaining heart and upper lungs unremarkable. - Thoracentesis ordered on left side - No Blood cultures ordered during visit. - Duonebs, Proventil, - Solu-medrol Q8 started today 04/13 04/14 - 2lNC 92% 04/15 - 3lNC 90% - Steroids stopped d/t pt need to go to OR again- can delay healing - Continue IV antibiotics 04/16/25 - 3lNC 90% - + wheezing throughout - Continue plan above and IS Code(s): J18.9 - PNEUMONIA, UNSPECIFIED ORGANISM (5) COPD exacerbation Current Visit: No Status: Acute Assessment & Plan: - See pneumonia plan above Code(s): J44.1 - CHRONIC OBSTRUCTIVE PULMONARY DISEASE W (ACUTE) EXACERBATION (6) Pleural effusion Current Visit: Yes Status: Acute Assessment & Plan: - As seen on chest CT on 04/10: IMPRESSION: 1. No evidence of pulmonary embolism, unchanged. 2. New bilateral lower lobar consolidations and mild pleural effusion, possible infectious process/ pneumonic patches should be considered, clinical and lab correlation needed. -CXR: 04/13 Portable chest again demonstrates mild/moderate bibasilar infiltrates/atelectasis/effusions, worsened on left. Remaining heart and upper lungs unremarkable. - PT/INR - Thoracentesis labs ordered - US guided thoracentisis today with 700 ml out of left lung - Post procedure CXR: 04/13 Portable chest obtained in expiration demonstrates marked improvement left base effusion with tiny residual consistent with recent thoracentesis. No pneumothorax. Stable mild right base infiltrate/atelectasis/effusion. Remaining heart and lungs unremarkable. No new cardiopulmonary abnormalities. - O2 post procedure 96% oxymask at 12 L - RT to wean O2 as tolerated - BNP in AM - Lasix IV daily started - Consider thoracentesis in AM of Right lung - Echo in AM 04/14 - Echo results pending - Oxygen demand improved to 2lNC at 96% - Will need repeat labs and CXR Sunday - Will continue lasix OP 04/15 - 3lNC - 90% - Echo EF 68% Code(s): J90 - PLEURAL EFFUSION, NOT ELSEWHERE CLASSIFIED (7) Dehydration Current Visit: Yes Status: Resolved Assessment & Plan: - resolved Code(s): E86.0 - DEHYDRATION (8) Tobacco abuse Current Visit: No Status: Chronic Assessment & Plan: Heavy long-term use (34 PPD). Nicotine patch for withdrawal. Reinforced cessation counseling. Code(s): Z72.0 - TOBACCO USE (9) Alcohol intoxication Current Visit: No Status: Resolved Assessment & Plan: Assessment & Plan: History of 6 beers daily CIWA monitoring and withdrawal precautions in place. Counseling provided. (10) RLS (restless legs syndrome) Current Visit: Yes Status: Chronic Assessment & Plan: No home medications. Iron studies reviewed (11) Chronic back pain Current Visit: Yes Status: Chronic Assessment & Plan: No routine home regimen documented. - [place] Q6 PRN Code(s): M54.9 - DORSALGIA, UNSPECIFIED; G89.29 - OTHER CHRONIC PAIN (12) Lactic acidosis Current Visit: Yes Status: Resolved Assessment & Plan: Initial 2.2 improved to 1.1 with IV fluids on admission No evidence of sepsis. Code(s): E87.20 - ACIDOSIS, UNSPECIFIED (13) Weakness Current Visit: Yes Status: Acute Assessment & Plan: -Physical/Occupational Therapy Daily PT/OT to improve strength, mobility, and ADL independence. -Progressive Mobilization Ambulate with assistance; increase distance as tolerated. -Fall Precautions Bed/chair alarms, close supervision during transfers. -Discharge Planning SNF rehab recommended for continued strengthening and functional recovery. 04/16 - Peer to Peer completed- denied until more stable and can resubmit. - Case management made aware. VTE: Lovenox PPI: Protonix Dispo: pending acceptance to [facility] rehab Code status: Full code Plan of care time spent > 42 mins Code(s): R53.1 - WEAKNESS Code(s): R53.1 - WEAKNESS
[2025-04-16] MEDS ORDERED: Docusate Sodium 100 MG PO PRN (22:10)
[2025-04-16] MEDS: Zofran 4 MG/2 ML VIAL IV PRN (22:22)
--- NOTE | 2025-04-17 10:33 | OP ---
SURGERY DATE/TIME: 04/15/2025 [id number] PREOPERATIVE DIAGNOSIS: Evisceration. POSTOPERATIVE DIAGNOSIS: Evisceration. PROCEDURES PERFORMED: 1) Exploratory laparotomy. 2) Abdominal closure. 3) Wound VAC application. SURGEON: Otis Goodwin MD ANESTHESIA: General. ESTIMATED BLOOD LOSS: Minimal. PATIENT CONDITION: Stable. COMPLICATIONS: None. SPECIMENS: None. INDICATIONS: The patient is a 69-year-old male that had a perforated ulcer patched that actually has been doing better after that other than a respiratory status still requiring oxygen, but then he was ambulating today and then having some coughing too that he has a small bowel evisceration. Discussion with the patient and family. Recommendations for exploration, closure, possible VAC, might need retention sutures, might need a bowel resection, but they do elect to proceed. FINDINGS: Reversible ischemia to the small bowel, totally viable. Abdomen is totally clean. Closure with VAC application. DESCRIPTION OF PROCEDURE: Patient brought to the operating room. General anesthesia induced. He was routinely position, prepped, draped. Time-out performed, received preoperative antibiotic. The patient was prepped with Betadine. There is a loop of small bowel in the middle of the midline incision that the shira are carefully removed and then the fascial suture removed that it had just totally pulled through on the left side. Tissue just was friable and pulled through on one side, knot still intact. The sutures were removed. The abdomen explored and then, there was absolutely no contamination. The abdomen looks clean. The patch and anastomosis are not interrogated. There is absolutely no contamination. The small bowel is evaluated again that there was just some mild ecchymosis, total reversible ischemia there that was a little dusky initially and then it is totally pink, viable, does not need a bowel resection. So at that point, the patch was evaluated. It does appear amenable to primary closure. There is no tension at all. The fascia was then closed with running 0 looped PDS sutures. Retention sutures are considered but it appears that the best support is going to be doing a primary VAC and just doing a vacuum for the subcutaneous and skin. The fascia was closed with 0 looped PDS sutures. All counts are correct. The VAC is then applied, that the skin is protected with the dressing and then, the black foam, 1 piece is placed and then, the adhesive dressing on top and then the VAC applied. There is good seal that sucks down nicely. Patient tolerated the procedure well. Plan is for extubation at this point.
--- NOTE | 2025-04-17 10:44 | PCM.NOTE ---
Date and Time: 04/17/25 1038 Subjective Assessment: 04/13/25 Mr. Patel is a 69-year-old male with COPD, emphysema, restless leg syndrome, chronic back pain, heavy alcohol use, and heavy tobacco use was admitted on 04/05/25 with severe epigastric pain. Imaging revealed free intraperitoneal air and a perforated gastric ulcer, for which he underwent emergent Claude patch repair with gastrojejunostomy. Postoperatively, he required BiPAP but was later weaned to nasal cannula, remained NPO, and was started on IV antibiotics and pain control. His course was complicated by hospital-acquired pneumonia, requiring escalation to vancomycin, Zosyn, and Flagyl. By 04/11, he was tolerating a clear liquid diet, had mild incisional pain, and remained afebrile, though he continued to experience significant weakness and functional decline, prompting recommendation for SNF rehabilitation. On 04/12, his oxygen requirement decreased to 12 L via Oxymizer, cough and sputum production improved, and sputum cultures confirmed Pseudomonas, allowing discontinuation of vancomycin while continuing Zosyn and Flagyl. On 04/13, chest x-ray showed increased left pleural effusion, and thoracentesis removed 700 mL. Labs revealed hemoglobin 9.2, normalized potassium at 3.4, and WBC within normal range. He remains on 12 L Oxymizer with oxygen saturation of 97%, reports feeling better aside from dyspnea, and is medically stable from a surgical standpoint but not yet ready for discharge due to poor oxygenation. Case management is arranging post-acute rehabilitation placement. 04/14/25 The patient is sitting up in a chair today and reports feeling much better, expressing readiness for discharge to [facility] rehab once accepted. He requests that his son drive him to the facility, which case management has approved. Magnesium is low at 1.5 and has been replaced, with plans to continue trending. Respiratory status has improved significantly, as he transitioned from a high-flow oxymask at 12 L yesterday to 2 L nasal cannula today with oxygen saturation at 92%. This improvement followed thoracentesis yesterday, during which 700 mL was removed from the left lung. Post-procedure chest x-ray showed a mild right effusion, and Lasix 20 mg daily was initiated, resulting in improved breathing. Echocardiogram results remain pending. He is tolerating a soft diet and prefers not to advance at this time. Surgery has signed off, and discharge is appropriate from the hospitalist standpoint. White blood cell count is normal today. Outpatient follow-up with pulmonology is required, along with repeat labs this Sunday and a chest x-ray to monitor pleural effusion status. The patient currently denies any further concerns. 04/15/25 The patient was resting in bed this morning when pt was found to have blood on his gown and sheets, requiring a dressing change. Nurse Lashae Tamayo RN, was asked to notify surgery of the findings. Yesterday, nurse Maurice Pardo RN, had been instructed by surgery to remove every other staple, and today the patient developed abdominal wound dehiscence. Surgery was notified, and the patient was taken to the operating room this afternoon by Dr. Mike Goodwin. He developed fever and increased pain associated with this incident. Current treatment includes Zosyn and Flagyl, with steroids discontinued. White blood cell count is elevated at 11.2. Lung sounds have improved, and he remains on 3 L oxygen with saturation at 90%. The patient had originally planned for transfer to rehab today; however, due to this complication, discharge has been delayed. Lovenox continues to be held in the setting of surgery, and further postoperative recommendations from the surgical team are pending. 04/16/25 The patient is resting in bed on postoperative day one following abdominal wound dehiscence, for which he underwent exploratory laparotomy by general surgery. A wound VAC and abdominal binder are in place. He reports being afraid to take a deep breath or cough, and lung sounds are wheezy throughout. He was encouraged to use the incentive spirometer and instructed to brace himself with a pillow while coughing to help prevent pneumonia. He remains on Zosyn and Flagyl. Potassium was 3.4 and has been replaced. His white blood cell count is elevated at 13.9 postoperatively, though he did not have a fever overnight. Due to this surgical setback, general surgery recommends that he remain hospitalized until Sunday. A [id number] review was completed with his insurance company, and the medical records assistant advised resubmitting information once the patient is stable and ready for discharge, as rehab cannot be approved at this time given his current condition. He is on 3 L nasal cannula with oxygen saturation at 90%. Pain is well controlled, and he denies chest pain, nausea, vomiting, or diarrhea. He did have a small, soft BM today. 04/17/25 The patient is resting in bed and reports feeling much better today. He is participating in physical therapy and ambulating with assistance. This morning he experienced wheezing, which was treated with a breathing treatment by respiratory therapy. He remains on 3 L of oxygen with saturation at 95%. White blood cell count is 13.9, and IV antibiotics are continued per general surgery recommendations. Hemoglobin is stable at 9.2, and potassium was 3.4, which has been replaced. Pain is managed with IV narcotics and oral medications as needed. The patient is passing gas and had a bowel movement yesterday. Echocardiogram shows an ejection fraction of 68%. A wound VAC is in place over the abdominal incision along with an abdominal binder. NUrse to call today for dressing recs from . Per general surgery, the plan is for discharge to a rehab facility on Sunday or Sunday if doing well. The patient currently denies any further concerns. - Review of Systems Constitutional: No Fever, No Chills Eyes: No Symptoms Ears, Nose, & Throat: No Symptoms Respiratory: Wheezing, No Cough, No Short Of Breath Cardiac: No Chest Pain, No Edema, No Syncope Abdominal/Gastrointestinal: Abdominal Pain, Other (Abd incision, with wound vac and abd binder in place.), No Nausea, No Vomiting, No Diarrhea Genitourinary Symptoms: No Dysuria Musculoskeletal: No Back Pain, No Neck Pain Skin: No Rash Neurological: No Dizziness, No Focal Weakness, No Sensory Changes Psychological: No Symptoms Endocrine: No Symptoms Hematologic/Lymphatic: No Symptoms Immunological/Allergic: No Symptoms Objective Exam General Appearance: no apparent distress, alert Neurologic Exam: alert, 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, cooperative, normal mood/affect, nml cerebellar function, sensation nml, No motor deficits Skin Exam: normal color, warm, dry Wound Assessment: Skin/Wound Assessment Wound/Incision Assessment Start: 04/06/25 07:58 Text: Status: Active Freq: Q4H Protocol: Document 04/17/25 08:00 RB (Rec: 04/17/25 08:23 RB [id number]) Wound/Incision Assessment Abdomen Wound Assessment Shift Assessment Wound Type Incision Dressing Status Dry & Intact Drainage Amount None Drainage Odor None/Absent General Appearance Well Approximated Comment WOUND VAC IN PLACE, NO BLEEDING OR DRAINAGE NOTED Wound Photo Photo Taken No Eye Exam: PERRL, EOMI, eyes nml inspection Ears, Nose, Throat Exam: normal ENT inspection, pharynx normal, moist mucous membranes Neck Exam: normal inspection, non-tender, supple, full range of motion Respiratory Exam: wheezing, No respiratory distress Cardiovascular Exam: regular rate/rhythm, normal heart sounds Gastrointestinal/Abdomen Exam: soft, tenderness, No mass Extremity Exam: normal inspection, normal range of motion Back Exam: normal inspection, normal range of motion, No CVA tenderness, No vertebral tenderness Male Genitalia Exam: deferred Rectal Exam: deferred Objective Data Vital Signs: Vital Signs - 24 hr Temp Pulse Resp BP Pulse Ox 04/17/25 08:13 103 H 22 95 04/17/25 05:12 98 H 24 100 04/17/25 05:00 24 04/17/25 04:00 98.3 F 99 H 28 H 154/80 96 04/17/25 01:00 22 04/17/25 00:00 97.8 F 107 H 27 H 180/89 92 L 04/16/25 21:49 106 H 36 H 86 L 04/16/25 21:00 24 04/16/25 20:00 97.6 F 101 H 24 180/95 93 L 04/16/25 19:25 102 H 22 93 L 04/16/25 17:20 24 04/16/25 16:00 97.7 F 96 H 24 141/75 93 L 04/16/25 14:35 93 H 22 93 L 04/16/25 13:36 22 04/16/25 11:53 98.1 F 96 H 22 171/77 95 Pain Assessment - Last Documented Pain Intensity [Abdomen] 1 Pain Intensity 2 Pain Scale Used 0-10 Pain Scale Intake and Output: Intake & Output 04/14/25 04/15/25 04/16/25 04/17/25 11:59 11:59 11:59 11:59 Intake Total 2495 720 1580 798 Output Total 1700 1700 1300 1600 Balance 795 -980 280 -802 Weight 70 kg Medications: Medications Generic Name Dose Route Start Last Admin Trade Name Freq PRN Reason Stop Dose Admin Acetaminophen 650 mg 04/10/25 11:51 04/10/25 12:21 Acetaminophen 650 Mg Supp.Rect OH 05/10/25 11:50 650 mg Q4H PRN PRN Administration PAIN AND/OR FEVER Acetaminophen 650 mg 04/11/25 08:40 04/16/25 06:15 Acetaminophen 325 Mg Tablet PO 05/11/25 08:39 650 mg Q4H PRN PRN Administration PAIN AND/OR FEVER Hydrocodone Bitart/Acetaminophen 1 tab 04/13/25 17:52 04/16/25 21:37 Hydrocodone/Apap 5/325 1 Tab Tablet PO 04/21/25 17:51 1 tab Q6H PRN PRN Administration PAIN Albuterol Sulfate 2.5 mg 04/06/25 08:18 04/17/25 08:11 Albuterol Sulfate 2.5 Mg/3 Ml Neb 05/06/25 08:17 2.5 mg Q4HPRN PRN Administration SHORTNESS OF BREATH/WHEEZING Albuterol Sulfate 2 puff 04/06/25 08:30 Albuterol Common Canister Inhaler 05/06/25 08:29 Q4H PRN PRN Albuterol/Ipratropium 3 ml 04/06/25 11:00 04/17/25 05:12 Ipratropium/Albuterol Sulfate 3 Ml Ampul.Neb 05/06/25 10:59 3 ml QIDRT ALYSSA Administration Diazepam 0 mg 04/06/25 08:17 Diazepam 10 Mg/2 Ml Disp.Syringe IV 05/06/25 08:16 Q2H PRN PRN CIWA SCORE Protocol Docusate Sodium 100 mg 04/16/25 22:10 Docusate Sodium 100 Mg Capsule PO 05/16/25 22:09 BIDPRN PRN CONSTIPATION Furosemide 20 mg 04/13/25 18:15 04/17/25 10:22 Furosemide 20 Mg/Vial IV 05/13/25 18:14 20 mg DAILY ALYSSA Administration Piperacillin Sod/Tazobactam 100 mls @ 200 mls/hr 04/13/25 12:00 04/17/25 05:57 Sod 3.375 gm/ Sodium Chloride IV 04/20/25 11:59 200 mls/hr Q6HT ALYSSA Administration Metronidazole 500 mg 04/15/25 17:00 04/17/25 10:22 Metronidazole 500 Mg Tablet PO 05/15/25 16:59 500 mg QID ALYSSA Administration Morphine Sulfate 1 mg 04/15/25 17:18 04/16/25 22:06 Morphine Sulfate 2 Mg/Ml Inj IV 04/20/25 17:17 1 mg Q4H PRN PRN Administration SEVERE PAIN Nicotine 21 mg 04/06/25 12:30 04/17/25 10:21 Nicotine 21 Mg/Patch Patch TOP 05/06/25 12:29 21 mg Q24H10 ALYSSA Administration Ondansetron HCl 4 mg 04/06/25 08:13 04/16/25 22:22 Ondansetron Hcl 4 Mg/2 Ml Vial IV 05/06/25 08:12 4 mg Q6H PRN PRN Administration NAUSEA/VOMITING Pantoprazole Sodium 40 mg 04/06/25 10:00 04/17/25 10:22 Pantoprazole 40 Mg Vial IV 05/06/25 09:59 40 mg BID ALYSSA Administration Asmanex Hfa Inhaler 1 each 04/08/25 07:00 04/17/25 05:20 IH 05/08/25 06:59 1 each BIDRT ALYSSA Administration Stiolto Respimat 2 each 04/08/25 19:00 04/16/25 19:24 Inhaler IH 05/08/25 18:59 2 each 1900 ALYSSA Administration Discontinued Medications Generic Name Dose Route Start Last Admin Trade Name Freq PRN Reason Stop Dose Admin Hydrocodone Bitart/Acetaminophen 1 tab 04/11/25 08:33 Hydrocodone/Apap 5/325 1 Tab Tablet PO 04/16/25 08:32 Q4H PRN PRN PAIN Albuterol/Ipratropium 3 ml 04/06/25 03:34 04/06/25 03:43 Ipratropium/Albuterol Sulfate 3 Ml Ampul.Neb IH 04/06/25 03:35 3 ml STAT ONE Administration Albuterol/Ipratropium Confirm 04/06/25 03:42 Ipratropium/Albuterol Sulfate 3 Ml Ampul.Neb Administered 04/06/25 03:43 Dose 3 ml IH .STK-MED ONE Azithromycin 250 mg 04/06/25 10:00 04/06/25 10:42 Azithromycin 250 Mg Tablet PO 04/09/25 10:01 Not Given DAILY ALYSSA Bisacodyl 10 mg 04/09/25 14:13 04/09/25 14:58 Bisacodyl 10 Mg Supp.Rect OH 04/09/25 14:14 10 mg STAT ONE Administration Bisacodyl 10 mg 04/09/25 18:00 04/09/25 18:01 Bisacodyl 10 Mg Supp.Rect OH 04/09/25 18:01 10 mg ONCE ONE Administration Bupivacaine HCl Confirm 04/06/25 05:06 Bupivacaine Hcl 2.5 Mg/Ml 10 Ml Administered 04/06/25 05:07 Dose 10 ml .ROUTE .STK-MED ONE Bupivacaine HCl Confirm 04/15/25 14:51 Bupivacaine Hcl 2.5 Mg/Ml 10 Ml Administered 04/15/25 14:52 Dose 10 ml .ROUTE .STK-MED ONE Bupivacaine HCl Confirm 04/15/25 14:51 Bupivacaine Hcl 2.5 Mg/Ml 10 Ml Administered 04/15/25 14:52 Dose 10 ml .ROUTE .STK-MED ONE Bupivacaine HCl/Epinephrine Bitart Confirm 04/15/25 16:00 Bupivacaine Hcl/Epinephrine 10 Ml Vial Administered 04/15/25 16:01 Dose 30 ml .ROUTE .STK-MED ONE Cefazolin Sodium Confirm 04/15/25 15:44 Cefazolin Sodium 1 Gm Vial Administered 04/15/25 15:45 Dose 2 g .ROUTE .STK-MED ONE Methylprednisolone Sodium 0 mg 04/06/25 10:00 04/06/25 10:12 Succinate 20 mg/ Sterile Water IV 05/06/25 09:59 20 mg 1 ml Q12HT ALYSSA Administration Methylprednisolone Sodium 0 mg 04/13/25 22:00 04/15/25 13:29 Succinate 40 mg/ Sterile Water IV 05/13/25 21:59 1 mg 1 ml Q8HT ALYSSA Administration Device 1 04/11/25 05:30 04/11/25 08:17 Therapuetic Drug Level Monitor Each IJ 04/11/25 05:31 1 1XONLY ONE Administration Device 1 04/12/25 05:30 04/12/25 08:50 Therapuetic Drug Level Monitor Each IJ 04/12/25 05:31 Not Given 1XONLY ONE Device 1 04/12/25 17:30 04/12/25 19:36 Therapuetic Drug Level Monitor Each IJ 04/12/25 17:31 Not Given 1XONLY ONE Device 1 04/14/25 09:30 04/14/25 11:16 Therapuetic Drug Level Monitor Each IJ 04/14/25 09:31 Not Given 1XONLY ONE Dexamethasone Sodium Phosphate Confirm 04/06/25 04:36 Dexamethasone Sodium Phosphate 4 Mg/Ml Vial Administered 04/06/25 04:37 Dose 8 mg .ROUTE .STK-MED ONE Dexamethasone Sodium Phosphate Confirm 04/15/25 15:15 Dexamethasone Sodium Phosphate 4 Mg/Ml Vial Administered 04/15/25 15:16 Dose 8 mg .ROUTE .STK-MED ONE Dexmedetomidine/Sodium Chloride Confirm 04/15/25 16:00 Dexmedetomidine In 0.9 % Nacl 80 Mcg/20 Ml Vial Administered 04/15/25 16:01 Dose 80 mcg IV .STK-MED ONE Enoxaparin Sodium 40 mg 04/07/25 12:00 04/13/25 11:35 Enoxaparin Sodium 40 Mg/0.4 Ml Syringe SQ 05/07/25 11:59 Not Given DAILY ALYSSA Etomidate Confirm 04/15/25 15:16 Etomidate 20 Mg/10 Ml Amp Administered 04/15/25 15:17 Dose 20 mg IV .STK-MED ONE Fentanyl Citrate Confirm 04/06/25 04:35 Fentanyl Citrate 100 Mcg/2 Ml* Vial Administered 04/06/25 04:36 Dose 200 mcg .ROUTE .STK-MED ONE Fentanyl Citrate Confirm 04/15/25 15:15 Fentanyl Citrate 100 Mcg/2 Ml* Vial Administered 04/15/25 15:16 Dose 100 mcg .ROUTE .STK-MED ONE Hydromorphone HCl 1 mg 04/06/25 00:33 04/06/25 00:48 Hydromorphone 1 Mg/1ml Inj IV 04/06/25 00:34 1 mg STAT ONE Administration Hydromorphone HCl Confirm 04/06/25 00:46 Hydromorphone 1 Mg/1ml Inj Administered 04/06/25 00:47 Dose 1 mg .ROUTE .STK-MED ONE Hydromorphone HCl 1 mg 04/06/25 03:21 04/06/25 03:28 Hydromorphone 1 Mg/1ml Inj IV 04/06/25 03:22 1 mg STAT ONE Administration Hydromorphone HCl Confirm 04/06/25 03:26 Hydromorphone 1 Mg/1ml Inj Administered 04/06/25 03:27 Dose 1 mg .ROUTE .STK-MED ONE Sodium Chloride 1,000 mls @ 999 mls/hr 04/06/25 00:33 04/06/25 01:47 Sodium Chloride 0.9% 1000 Ml IV 04/06/25 01:33 Infused .Q1H1M STA Infusion Sodium Chloride Confirm 04/06/25 00:46 Sodium Chloride 0.9% 1000 Ml Administered 04/06/25 00:47 Dose 1,000 mls @ ud .ROUTE .STK-MED ONE Piperacillin Sod/Tazobactam 100 mls @ 200 mls/hr 04/06/25 03:17 04/06/25 03:39 Sod 3.375 gm/ Sodium Chloride IV 04/06/25 03:46 200 mls/hr STAT STA 200 mls/hr Administration Sodium Chloride Confirm 04/06/25 03:32 Sodium Chloride 0.9% Administered 04/06/25 03:33 Dose 100 mls @ ud .ROUTE .STK-MED ONE Sodium Chloride Confirm 04/06/25 03:39 Sodium Chloride 0.9% 1000 Ml Administered 04/06/25 03:40 Dose 1,000 mls @ ud .ROUTE .STK-MED ONE Sodium Chloride 1,000 mls @ 100 mls/hr 04/06/25 03:45 04/06/25 03:40 Sodium Chloride 0.9% 1000 Ml IV 05/06/25 03:44 100 mls/hr .Q10H ALYSSA Administration Acetaminophen Confirm 04/06/25 04:54 Ofirmev Administered 04/06/25 04:55 Dose 100 mls @ ud IV .STK-MED ONE Lactated Ringer's Confirm 04/06/25 05:49 Lactated Ringers Administered 04/06/25 05:50 Dose 1,000 mls @ ud IV .STK-MED ONE Potassium Chloride/Dextrose/Sod Cl 1,000 mls @ 50 mls/hr 04/06/25 08:30 04/11/25 08:16 D5w/0.45ns W/ 20meq Kcl 1000 Ml IV 05/06/25 08:29 Not Given .Q20H ALYSSA Cefoxitin Sodium 2 gm in 100 mls @ 200 mls/hr 04/06/25 09:00 04/10/25 00:36 Cefoxitin 2 Gm/100 Ml Nacl Ivpb IV 05/06/25 08:59 200 mls/hr Q8H ALYSSA Administration Metronidazole 500 mg in 100 mls @ 200 mls/hr 04/07/25 12:00 04/14/25 18:15 Flagyl 500 Mg Ivpb IV 05/07/25 11:59 200 mls/hr Q6HT ALYSSA Administration Piperacillin Sod/Tazobactam 100 mls @ 200 mls/hr 04/10/25 12:00 04/13/25 05:09 Sod 3.375 gm/ Sodium Chloride IV 04/13/25 11:59 200 mls/hr Q6HT ALYSSA Administration Vancomycin HCl 500 mg/ Sodium 100 mls @ 100 mls/hr 04/10/25 12:00 04/11/25 07 :04 Chloride IV 05/10/25 11:59 100 mls/hr Q6HT ALYSSA Administration Vancomycin HCl 1 gm in 200 mls @ 125 mls/hr 04/11/25 12:00 04/13/25 12:10 Vancomycin 1 Gram/200 Ml Bag IV 05/11/25 11:59 Not Given Q6HT ALYSSA Vancomycin HCl 1 gm in 200 mls @ 125 mls/hr 04/13/25 22:00 Vancomycin 1 Gram/200 Ml Bag IV 05/13/25 21:59 Q12HT ALYSSA Lactated Ringer's 1,000 mls @ 50 mls/hr 04/15/25 15:30 04/15/25 23:37 Lactated Ringers IV 05/15/25 15:29 50 mls/hr .Q20H ALYSSA Administration Sodium Chloride Confirm 04/15/25 15:24 Sodium Chloride 0.9% Administered 04/15/25 15:25 Dose 100 mls @ ud .ROUTE .STK-MED ONE Ketamine HCl Confirm 04/06/25 05:11 Ketamine Hcl 50 Mg/Ml Administered 04/06/25 05:12 Dose 50 mg .ROUTE .STK-MED ONE Ketorolac Tromethamine Confirm 04/15/25 15:15 Ketorolac Tromethamine 30 Mg/Ml Inj Administered 04/15/25 15:16 Dose 30 mg .ROUTE .STK-MED ONE Lidocaine HCl Confirm 04/06/25 04:35 Lidocaine - Mpf 2% 5 Ml Vial Administered 04/06/25 04:36 Dose 10 ml .ROUTE .STK-MED ONE Lidocaine HCl Confirm 04/15/25 15:15 Lidocaine - Mpf 2% 5 Ml Vial Administered 04/15/25 15:16 Dose 5 ml .ROUTE .STK-MED ONE Magnesium Oxide 400 mg 04/14/25 07:51 04/14/25 10:23 Magnesium Oxide 400 Mg Tablet PO 04/14/25 07:52 400 mg STAT ONE Administration Magnesium Sulfate Confirm 04/06/25 04:54 Magnesium Sulfate Injection Administered 04/06/25 04:55 Dose 1 gm .ROUTE .STK-MED ONE Methylprednisolone 4 mg 04/06/25 08:30 Methylprednisolone 4 Mg Packet PO 05/06/25 08:29 [facility] [place] Metronidazole 500 mg 04/15/25 00:00 04/15/25 05:15 Metronidazole 500 Mg Tablet PO 05/15/25 00:00 500 mg Q6H ALYSSA Administration Midazolam HCl Confirm 04/06/25 05:12 Midazolam Hcl 2 Mg/2 Ml Vial Administered 04/06/25 05:13 Dose 2 mg .ROUTE .STK-MED ONE Miscellaneous Information 1 each 04/06/25 08:30 Medication Intervention 1 Each Each 05/06/25 08:29 .RT TO CHECK [facility] Miscellaneous Information 1 each 04/06/25 13:00 Medication Intervention 1 Each Each 05/06/25 12:59 .RT TO CHECK [facility] Morphine Sulfate 2 mg 04/06/25 08:12 04/10/25 21:33 Morphine Sulfate 2 Mg/Ml Inj IV 04/11/25 08:11 2 mg Q2H PRN PRN Administration PAIN Morphine Sulfate 1 mg 04/15/25 14:12 Morphine Sulfate 2 Mg/Ml Inj IM 04/15/25 14:13 STAT ONE Morphine Sulfate 1 mg 04/15/25 14:43 04/15/25 14:48 Morphine Sulfate 2 Mg/Ml Inj IV 04/15/25 14:44 1 mg STAT ONE Administration Non-Formulary Medication 1 each 04/10/25 09:15 Pharmacy Dose Request: Vancomycin 1 Each IV 05/10/25 09:14 [facility] Ondansetron HCl 4 mg 04/06/25 00:35 04/06/25 00:48 Ondansetron Hcl 4 Mg/2 Ml Vial IV 04/06/25 00:36 4 mg STAT ONE Administration Ondansetron HCl Confirm 04/06/25 00:46 Ondansetron Hcl 4 Mg/2 Ml Vial Administered 04/06/25 00:47 Dose 4 mg .ROUTE .STK-MED ONE Ondansetron HCl Confirm 04/06/25 04:35 Ondansetron Hcl 4 Mg/2 Ml Vial Administered 04/06/25 04:36 Dose 8 mg .ROUTE .STK-MED ONE Ondansetron HCl Confirm 04/15/25 15:15 Ondansetron Hcl 4 Mg/2 Ml Vial Administered 04/15/25 15:16 Dose 4 mg .ROUTE .STK-MED ONE Pantoprazole Sodium 40 mg 04/06/25 10:00 Protonix (Pantoprazole) 40 Mg Tablet PO 05/06/25 09:59 QAM [facility] Piperacillin Sod/Tazobactam Sod Confirm 04/06/25 03:26 Piperacillin/Tazobactam Sodium 3.375 Gm Vial Administered 04/06/25 03:27 Dose 3.375 gm IV .STK-MED ONE Piperacillin Sod/Tazobactam Sod Confirm 04/11/25 18:01 Piperacillin/Tazobactam Sodium 3.375 Gm Vial Administered 04/11/25 18:02 Dose 3.375 gm IV .STK-MED ONE Potassium Bicarbonate 25 meq 04/13/25 18:59 04/14/25 16:12 Potassium Bicarbonate 25 Meq Tab PO 04/13/25 19:00 Not Given STAT ONE Potassium Chloride 40 meq 04/13/25 18:59 04/13/25 19:02 Potassium Chloride Tab 10 Meq Tab PO 04/13/25 19:00 40 meq STAT ONE Administration Potassium Chloride Confirm 04/13/25 19:01 Potassium Chloride Tab 10 Meq Tab Administered 04/13/25 19:02 Dose 40 meq .ROUTE .STK-MED ONE Propofol Confirm 04/06/25 04:35 Propofol 200 Mg/20 Ml Vial Administered 04/06/25 04:36 Dose 400 mg IV .STK-MED ONE Propofol Confirm 04/15/25 15:15 Propofol 200 Mg/20 Ml Vial Administered 04/15/25 15:16 Dose 200 mg IV .STK-MED ONE Rocuronium Uneeda Confirm 04/06/25 04:35 Rocuronium Uneeda 50 Mg/5 Ml Vial Administered 04/06/25 04:36 Dose 100 mg IV .STK-MED ONE Rocuronium Uneeda Confirm 04/15/25 15:15 Rocuronium Uneeda 50 Mg/5 Ml Vial Administered 04/15/25 15:16 Dose 50 mg IV .STK-MED ONE Succinylcholine Chloride Confirm 04/15/25 15:15 Succinylcholine Chloride 200mg/10 Ml Vial Administered 04/15/25 15:16 Dose 100 mg .ROUTE .STK-MED ONE Sugammadex Sodium Confirm 04/06/25 04:35 Sugammadex Sodium 200 Mg/2 Ml Vial Administered 04/06/25 04:36 Dose 400 mg IV .STK-MED ONE Sugammadex Sodium Confirm 04/15/25 15:15 Sugammadex Sodium 200 Mg/2 Ml Vial Administered 04/15/25 15:16 Dose 200 mg IV .STK-MED ONE Vasopressin Confirm 04/06/25 04:54 Vasopressin 20 Unit/Ml Ml Administered 04/06/25 04:55 Dose 20 unit .ROUTE .STK-MED ONE Vasopressin Confirm 04/15/25 15:24 Vasopressin 20 Unit/Ml Ml Administered 04/15/25 15:25 Dose 20 unit .ROUTE .STK-MED ONE Multi-Disciplinary Progress Notes: Multi-Disciplinary Progress Notes 04/17/25 10:30 Case Management Note by Tequila Gallego PATIENT CONTINUES TO PLAN TO GO TO [facility] FOR REHAB WHEN MEDICALLY READY Initialized on 04/17/25 10:30 - END OF NOTE 04/16/25 17:39 Respiratory Note by Emily Jordan PT'S O2 SAT WAS DROPPING DOWN TO 86-87% ON THE 3LPM OXYMASK. PT WAS JUST LAYING IN BED, RESTING COMFORTABLY WITH NO SHORTNESS OF BREATH NOTED. OXYGEN HAD TO BE TITRATED TO 8LPM VIA OXYMASK TO GET O2 SAT TO 90%. NURSE AWARE. Initialized on 04/16/25 17:39 - END OF NOTE 04/16/25 13:47 Case Management Note by Samira Chatman PATIENT CONTINUES TO PLAN TO GO TO [facility] FOR REHAB WHEN MEDICALLY READY [facility] WAS FAXED CLINICAL UPDATE FOR AUTH THEY WERE ALSO NOTIFIED ABOUT WOUND VAC IN PLACE- THEY WILL NEED TO ORDER VAC IF PATIENT DISCHARGES WITH VAC IN PLACE. WAITING ON SURGEON TO ROUND FOR PLAN OF CARE Initialized on 04/16/25 13:47 - END OF NOTE 04/16/25 10:46 Physical Therapy Note by Cassandra(L#[id number]),Renae ASSESSED WOUND VAC DRESSING AND THAT VAC IS WORKING. DRESSING INTACT AND VAC FUNCTIONING WELL ON POST-OP ABD WOUND. PT. WILL NEED A HOME UNIT WHEN HE DISCHARGES TO SNF FOR REHAB. WILL ATTEMPT TO TX FOR FUNCTIONAL MOBILITY AND GAIT LATER PT. DYSPNEIC AFTER BATH W/ ASSIST OF NURSING. O2 SATS 91% ON 3L. Initialized on 04/16/25 10:46 - END OF NOTE Assessment/Plan (1) Perforated gastric ulcer Current Visit: Yes Status: Acute Code(s): K25.5 - CHRONIC OR UNSPECIFIED GASTRIC ULCER WITH PERFORATION (2) Perforated abdominal viscus Current Visit: Yes Status: Acute Code(s): R19.8 - OTH SYMPTOMS AND SIGNS INVOLVING THE DGSTV SYS AND ABDOMEN (3) Abdominal pain Current Visit: Yes Status: Acute Code(s): R10.9 - UNSPECIFIED ABDOMINAL PAIN (4) Pneumonia Current Visit: No Status: Acute Code(s): J18.9 - PNEUMONIA, UNSPECIFIED ORGANISM (5) COPD exacerbation Current Visit: No Status: Acute Code(s): J44.1 - CHRONIC OBSTRUCTIVE PULMONARY DISEASE W (ACUTE) EXACERBATION (6) Pleural effusion Current Visit: Yes Status: Acute Code(s): J90 - PLEURAL EFFUSION, NOT ELSEWHERE CLASSIFIED (7) Dehydration Current Visit: Yes Status: Resolved Code(s): E86.0 - DEHYDRATION (8) Tobacco abuse Current Visit: No Status: Chronic Code(s): Z72.0 - TOBACCO USE (9) Alcohol intoxication Current Visit: No Status: Resolved (10) RLS (restless legs syndrome) Current Visit: Yes Status: Chronic (11) Chronic back pain Current Visit: Yes Status: Chronic Code(s): M54.9 - DORSALGIA, UNSPECIFIED; G89.29 - OTHER CHRONIC PAIN (12) Lactic acidosis Current Visit: Yes Status: Resolved Code(s): E87.20 - ACIDOSIS, UNSPECIFIED (13) Weakness Current Visit: Yes Status: Acute Assessment & Plan: (1) Perforated gastric ulcer Current Visit: Yes Status: Acute Assessment & Plan: - Advanced to FLD - Pain controlled - IS/ Flutter -Oxygen at 12L oxymask- improving spo2 at 96%- titrate as appropriate - Transition to soft diet per GS and advance as tolerated - + BM's- soft - OK to d/c per GS standpoint however pt has pneumonia and not ready to d/c yet. - PT eval 04/14 - D/C to rehab when accepted - OK to transition diet as tolerated per GS 04/14 - Abd wound bleeding-surgery notified by RN 04/15 - Bleeding resolved, dressing CDI - Wound vac in place 04/16 - Wound vac in place- Nurse to ask GS about dressing change needs - CBC, CMP reviewed - WBC 13.9 - Continue antibiotics and narcotic pain control Code(s): K25.5 - CHRONIC OR UNSPECIFIED GASTRIC ULCER WITH PERFORATION (2) Perforated abdominal viscus Current Visit: Yes Status: Acute Assessment & Plan: CTA findings of pneumoperitoneum involving lesser sac, hepatic surface, and mid-abdomen consistent with hollow viscus perforation. Confirmed intraoperatively. IV antibiotics. Monitor for postoperative complications (leak, abscess, sepsis). CBC, CMP reviewed - [place] - every other one as directed by surgeon removed 04/14 04/15 - + Abd wound dehis with bleeding - Pt to surgery today with Dr. Mike Goodwin- awaiting further surg. recs - CBC CMP reviewed - Continue antibiotics - Morphine PRN added - Made NPO 04/16 - POD #1 from Exp lap - Dressing CDI with abd binder in place - IS - Pillow to brace for coughs - CBC, CMP reviewed - WBC 13.9 - No fever overnight - Change to full liquid diet per GS - SCD's until ok by surgery to start anticoagulation 12/ - POD #2 from Exp lap - Dressing CDI with abd binder in place, wound vac - CBC, CMP reviewed Code(s): R19.8 - OTH SYMPTOMS AND SIGNS INVOLVING THE DGSTV SYS AND ABDOMEN (3) Abdominal pain Current Visit: Yes Status: Acute Assessment & Plan: - 2:2 diagnosis plans above Code(s): R10.9 - UNSPECIFIED ABDOMINAL PAIN (4) Pneumonia Current Visit: No Status: Acute Assessment & Plan: - Sputum culture with pseudomonas- continue Zosyn/flagyl - Oxygenation at 12L oxymask down from 15L with spo2 at 97%-titrate as appropriate - WBC normalized - CBC, CMP reviewed - CXR: 04/13 Portable chest again demonstrates mild/moderate bibasilar infiltrates/atelectasis/effusions, worsened on left. Remaining heart and upper lungs unremarkable. - Thoracentesis ordered on left side - No Blood cultures ordered during visit. - Duonebs, Proventil, - Solu-medrol Q8 started today 04/13 04/14 - 2lNC 92% 04/15 - 3lNC 90% - Steroids stopped d/t pt need to go to OR again- can delay healing - Continue IV antibiotics 04/16/25 - 3lNC 90% - + wheezing throughout - Continue plan above and IS 04/17 - + wheezing- RT provided breathing treatment - 2 LNC 95% Code(s): J18.9 - PNEUMONIA, UNSPECIFIED ORGANISM (5) COPD exacerbation Current Visit: No Status: Acute Assessment & Plan: - See pneumonia plan above Code(s): J44.1 - CHRONIC OBSTRUCTIVE PULMONARY DISEASE W (ACUTE) EXACERBATION (6) Pleural effusion Current Visit: Yes Status: Acute Assessment & Plan: - As seen on chest CT on 04/10: IMPRESSION: 1. No evidence of pulmonary embolism, unchanged. 2. New bilateral lower lobar consolidations and mild pleural effusion, possible infectious process/ pneumonic patches should be considered, clinical and lab correlation needed. -CXR: 04/13 Portable chest again demonstrates mild/moderate bibasilar infiltrates/atelectasis/effusions, worsened on left. Remaining heart and upper lungs unremarkable. - PT/INR - Thoracentesis labs ordered - US guided thoracentisis today with 700 ml out of left lung - Post procedure CXR: 04/13 Portable chest obtained in expiration demonstrates marked improvement left base effusion with tiny residual consistent with recent thoracentesis. No pneumothorax. Stable mild right base infiltrate/atelectasis/effusion. Remaining heart and lungs unremarkable. No new cardiopulmonary abnormalities. - O2 post procedure 96% oxymask at 12 L - RT to wean O2 as tolerated - BNP in AM - Lasix IV daily started - Consider thoracentesis in AM of Right lung - Echo in AM 04/14 - Echo results pending - Oxygen demand improved to 2lNC at 96% - Will need repeat labs and CXR Sunday - Will continue lasix OP 04/15 - 3lNC - 90% - Echo EF 68% 04/16 - 3lNC 95% Code(s): J90 - PLEURAL EFFUSION, NOT ELSEWHERE CLASSIFIED (7) Dehydration Current Visit: Yes Status: Resolved Assessment & Plan: - resolved Code(s): E86.0 - DEHYDRATION (8) Tobacco abuse Current Visit: No Status: Chronic Assessment & Plan: Heavy long-term use (34 PPD). Nicotine patch for withdrawal. Reinforced cessation counseling. Code(s): Z72.0 - TOBACCO USE (9) Alcohol intoxication Current Visit: No Status: Resolved Assessment & Plan: Assessment & Plan: History of 6 beers daily CIWA monitoring and withdrawal precautions in place. Counseling provided. (10) RLS (restless legs syndrome) Current Visit: Yes Status: Chronic Assessment & Plan: No home medications. Iron studies reviewed (11) Chronic back pain Current Visit: Yes Status: Chronic Assessment & Plan: No routine home regimen documented. - [place] Q6 PRN Code(s): M54.9 - DORSALGIA, UNSPECIFIED; G89.29 - OTHER CHRONIC PAIN (12) Lactic acidosis Current Visit: Yes Status: Resolved Assessment & Plan: Initial 2.2 improved to 1.1 with IV fluids on admission No evidence of sepsis. Code(s): E87.20 - ACIDOSIS, UNSPECIFIED (13) Weakness Current Visit: Yes Status: Acute Assessment & Plan: -Physical/Occupational Therapy Daily PT/OT to improve strength, mobility, and ADL independence. -Progressive Mobilization Ambulate with assistance; increase distance as tolerated. -Fall Precautions Bed/chair alarms, close supervision during transfers. -Discharge Planning SNF rehab recommended for continued strengthening and functional recovery. 04/16 - Peer to Peer completed- denied until more stable and can resubmit. - Case management made aware. 04/17 - PT/OT eval VTE: Lovenox PPI: Protonix Dispo: pending acceptance to [facility] rehab and cleared by surgery Code status: Full code Plan of care time spent > 42 mins Code(s): R53.1 - WEAKNESS Code(s): R53.1 - WEAKNESS
--- NOTE | 2025-04-17 16:31 | PROG NOTE ---
He is postop day number 1, partial wound dehiscence. He is doing well. He is alert and oriented. He is on nasal prongs. His abdominal binder was taken off. He has wound VAC in place. Wound VAC looks excellent. His abdominal binder is reapplied. He has a friend in the chair in the room. His clinical course, he has certainly stepped back a step at this time. We may be looking for disposition or discharge about Sunday. He is on full liquids. We will leave him on full liquids. He has some change of pulmonary disease and he has major healing inability, but it looks like this situation has been rectified at this time.
[2025-04-17] MEDS ORDERED: Advair Hfa 115/21 Common canister IH SCH (19:00)
[2025-04-17 20:54] LABS: A-aADO2 581; ABG HEMOGLOBIN 11.0; ABG POTASSIUM 2.9 (3.5-5.1); ARTERIAL BLD GAS O2 SATURATION 92.4 % (95-100); ARTERIAL BLOOD GAS BASE EXCESS 16.3 (-2.0-2.0); ARTERIAL BLOOD GAS FIO2 100 %; ARTERIAL BLOOD GAS PCO2 55 mmHg (35-45); ARTERIAL BLOOD GAS PO2 63 mmHg (75-100); ARTERIAL BLOOD GAS TEMPERATURE 37.0 C; HCO3- 41.9 (22-28); HGB O2 SAT 90.6 g/dF (94-100); Methhemoglobin 0.6 % (1.4-1.5); paO2 pAO1 0.10
[2025-04-17 20:55] LABS: ABG SITE RRA; ALLEN TEST OK? yes
[2025-04-17] MEDS: solu-MEDROL 40 MG, Sterile H2O 10 ml 1 ML IV SCH (21:06)
[2025-04-18] MEDS: Klor Con PO ONE (00:21)
--- NOTE | 2025-04-18 01:26 | XRAY ---
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 TECHNIQUE: Radiograph of the chest was obtained. FINDINGS: There is blunting of the bilateral costophrenic angles. Ill-defined opacities are seen in the left lower zones. The rest of the lungs is clear. The cardiomediastinal silhouette is within normal limits. No acute osseous abnormality. IMPRESSION: 1. Bilateral pleural effusion - persistent on right side, increased on left side. 2. Ill-defined opacity in left lower lobe - likely suggestive of underlying collapse or consolidation - new. Electronically Signed by: Aidan Gastelum MD. (04/18/2025 01:25:23 EST)
[2025-04-18] MEDS: Lasix 40 MG/4 ML IV ONE (01:44)
[2025-04-18 05:16] LABS: Hematocrit 38.7 % (40.1-51.0); Hemoglobin 11.8 g/dL (13.7-17.5); Mean Corpuscular Hemoglobin 26.5 pg (25.7-32.2); Mean Corpuscular Hgb Concent. 30.5 g/dL (32.3-36.5); Platelet Count 526 x10^3/uL (163-337); Red Blood Count 4.45 x10^6/uL (4.63-6.08); White Blood Count 14.3 x10^3/uL (4.23-9.07)
[2025-04-18 06:07] LABS: Calcium 9.1 mg/dL (8.4-10.2); Carbon Dioxide 34.0 mmol/L (22-30); Creatinine 1 0.84 mg/dL (0.66-1.25); EST GLOMERULAR FILTRATION RATE 93.2 ML/MIN; Glucose 121.0 mg/dL (74-106); Potassium 3.5 mmol/L (3.5-5.1); SGOT/AST 44.0 U/L (17-59); SGPT/ALT 30.0 U/L (0-50); Total Protein 7.1 g/dL (6.3-8.2)
--- NOTE | 2025-04-18 12:02 | PCM.DS ---
Discharge Summary Date of Admission: 04/06/25 07:35 Date of Discharge: 04/18/25 Admitting Physician: DE LOPEZ MD Consults: Consults on Case 04/06/25 07:35 Consult Surgery ROUTINE Primary Care Provider: MITZY LOOMIS Allergies Allergies No Known Drug Allergies Allergy (Verified 04/06/25 08:00) Hospital Summary - Hospital Course Hospital Course: 04/13/25 Mr. Patel is a 69 year old male with a history of COPD, emphysema, restless leg syndrome, chronic back pain, heavy alcohol use, and heavy tobacco use who was admitted on 04/05/25 with severe epigastric pain. Imaging revealed free intraperitoneal air and a perforated gastric ulcer, for which he underwent emergent Claude patch repair with gastrojejunostomy. His postoperative course was complicated by hospital acquired pneumonia requiring escalation to vancomycin, Zosyn, and Flagyl. By 04/11, he was tolerating a clear liquid diet and remained afebrile, though he continued to experience weakness and functional decline, prompting recommendation for SNF rehabilitation. On 04/12, sputum cultures confirmed Pseudomonas, allowing discontinuation of vancomycin while continuing Zosyn and Flagyl. On 04/13, chest x-ray showed increased left pleural effusion, and thoracentesis removed 700 mL. He remained on high-flow oxygen but was medically stable from a surgical standpoint. On 04/14, his respiratory status improved significantly, transitioning to 2 L nasal cannula, and he was considered appropriate for discharge to rehab once accepted. However, on 04/15 he developed abdominal wound dehiscence after staple removal, requiring exploratory laparotomy and wound VAC placement. His course was further complicated by elevated white blood cell counts and persistent oxygen requirements. By 04/17, he was participating in physical therapy, ambulating with assistance, and remained on IV antibiotics with stable hemoglobin. On 04/18, the patient developed acute respiratory failure with tripod breathing, tachycardia, and oxygen saturation of 89% on 10 L Oxy-mask. Chest x-ray revealed bilateral pleural effusions and left lower lung collapse or consolidation. He was agreeable to intubation if needed. At this time, his abdominal pain was well controlled, and he denied chest pain, nausea, vomiting, or diarrhea. Given his worsening respiratory status, the patient was transferred to [facility] for higher level of care. - Vitals & Intake/Output Vital Signs: Vital Signs Temperature 97.9 F 04/18/25 11:34 Pulse Rate 121 H 04/18/25 11:34 Respiratory Rate 20 04/18/25 11:34 Blood Pressure 126/67 04/18/25 11:34 O2 Sat by Pulse Oximetry 94 L 04/18/25 11:34 Intake & Output: Intake & Output 04/15/25 04/16/25 04/17/25 04/18/25 11:59 11:59 11:59 11:59 Intake Total 720 1580 1038 1420 Output Total 1700 1300 1800 2250 Balance -980 280 -762 -510 Weight 70 kg - Lab Result Diagrams: 04/18/25 04:55 04/18/25 04:55 Lab Results-Last 24 Hrs: Lab Results-Last 24 Hours 04/17/25 04/18/25 04/18/25 Range/Units 19:14 04:55 04:55 WBC 14.3 H (4.23-9.07) x10^3/uL RBC 4.45 L (4.63-6.08) x10^6/uL Hgb 11.8 L D (13.7-17.5) g/dL Hct 38.7 L (40.1-51.0) % MCV 87.0 (79.0-92.2) fL MCH 26.5 (25.7-32.2) pg MCHC 30.5 L (32.3-36.5) g/dL RDW 16.9 H (11.6-14.4) % Plt Count 526 H (163-337) x10^3/uL MPV 9.2 L (9.4-12.4) fL Puncture Site RRA pCO2 55 H (35-45) mmHg pO2 63 L (75-100) mmHg Base Excess 16.3 H (-2.0-2.0) O2 Saturation 90.6 L (94-100) g/dF ABG pH 7.49 H (7.35-7.45) ABG HCO3 41.9 H* (22-28) ABG O2 Sat (Measured) 92.4 L (95-100) % Devon Test yes A-a Gradient 581 a/A Ratio 0.10 Hemoglobin 11.0 Carboxyhemoglobin 1.4 (0.0-6.9) % THgb Methemoglobin 0.6 L (1.4-1.5) % Potassium 2.9 L* 3.5 (3.5-5.1) Temperature 37.0 C POC O2 Flow Rate 100 % Sodium 137 (135-145) mmol/L Chloride 92 L (98-107) mmol/L Carbon Dioxide 34 H (22-30) mmol/L Anion Gap 14.3 (5-15) MEQ/L BUN 18 (9-20) mg/dL Creatinine 0.84 (0.66-1.25) mg/dL Estimated GFR 93.2 ML/MIN Glucose 121 H (74-106) mg/dL Calcium 9.1 (8.4-10.2) mg/dL Total Bilirubin 0.40 (0.2-1.3) mg/dL AST 44 (17-59) U/L ALT 30 (0-50) U/L Alkaline Phosphatase 55 (38-126) U/L Serum Total Protein 7.1 (6.3-8.2) g/dL Albumin 3.8 (3.5-5.0) g/dL Micro Results-Entire Visit: Microbiology 04/13/25 14:55 Gram Stain - Final Pleural Fluid Body Fluid Culture - Final NO GROWTH 04/10/25 10:58 Gram Stain - Final Sputum - Expectorant Sputum Culture - Final Pseudomonas Aeruginosa#2 04/06/25 04:05 Urine Culture - Final Urine, Catheterized NO GROWTH - Radiology Exams Ordered Rad Exams-Entire Visit: Radiology Procedures Category Date Time Status CHEST 1 VIEW (PORTABLE) Stat Exams 04/18/25 00:06 Completed - Procedures and Test Procedures and Tests throughout Hospitalization: Therapy Orders & Screens 04/06/25 03:42 Respiratory Therapy Assessment DAILY Comment: 04/06/25 07:00 EKG ROUTINE Comment: 04/06/25 07:01 BiPap/CPAP ROUTINE Comment: 04/06/25 07:54 Respiratory Therapy Consult ONCE Comment: Reason For Exam: 04/06/25 11:19 Oxygen Nasal Cannula 4 lpm Comment: Diagnosis: Duodenal Perforation and obstruction 04/06/25 11:20 Incentive Spirometry TID Comment: Diagnosis: Duodenal Perforation and obstruction 04/08/25 07:00 Respiratory MDI BID Comment: ASMANEX 200MCG-ONE PUFF EVERY DAY Diagnosis: Duodenal Perforation and obstruction 04/08/25 11:38 FLUTTER [Flutter Therapy] UD Comment: Diagnosis: Duodenal Perforation and obstruction 04/13/25 18:10 RT Miscellaneous Order ROUTINE Comment: Physician Instructions: Reason For Exam: Wean o2 as tolerated Diagnosis: Duodenal Perforation and obstruction 04/14/25 09:19 PT Eval & Treat ( Order) ONCE Reason for Eval:: REQUESTING REHAB Diagnosis: Duodenal Perforation and obstruction 04/15/25 17:30 PT Eval & Treat (MD Order) ONCE Reason for Eval:: WOUND/ WOUND VAC CONSULT Diagnosis: Duodenal Perforation and obstruction Discharge Exam General Appearance: moderate distress, alert, thin Neurologic Exam: alert, 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, cooperative, normal mood/affect, nml cerebellar function, sensation nml, No motor deficits Eye Exam: PERRL, EOMI, eyes nml inspection Ears, Nose, Throat Exam: normal ENT inspection, pharynx normal, moist mucous membranes Neck Exam: normal inspection, non-tender, supple, full range of motion Respiratory Exam: diminished breath sounds (BLLL), accessory muscle use, wheezing, other (Tripod breathing), No respiratory distress Cardiovascular Exam: regular rate/rhythm, normal heart sounds, tachycardia Gastrointestinal/Abdomen Exam: soft, other (abd incision with jyothi and wound vac), No tenderness, No mass Male Genitalia Exam: deferred Rectal Exam: deferred Back Exam: normal inspection, normal range of motion, No CVA tenderness, No vertebral tenderness Extremity Exam: normal inspection, normal range of motion Skin Exam: normal color, warm, dry Wound Assessment: Skin/Wound Assessment Wound/Incision Assessment Start: 04/06/25 07:58 Text: Status: Active Freq: Q4H Protocol: Document 04/18/25 07:54 RB (Rec: 04/18/25 08:03 RB [id number]) Wound/Incision Assessment Abdomen Wound Assessment Shift Assessment Wound Type Incision Dressing Status Dry & Intact Drainage Amount None Primary Dressing WOUND VAC Comment WOUND VAC IN PLACE, CHANGED PER PHYSICAL THERAPY YESTERDAY , NO REDNESS OR DRAINAGE NOTED Wound Photo Photo Taken No Final Diagnosis/Problem List - Final Discharge Diagnosis/Problem (1) Perforated gastric ulcer Current Visit: Yes Status: Acute Code(s): K25.5 - CHRONIC OR UNSPECIFIED GASTRIC ULCER WITH PERFORATION (2) Perforated abdominal viscus Current Visit: Yes Status: Acute Code(s): R19.8 - OTH SYMPTOMS AND SIGNS INVOLVING THE DGSTV SYS AND ABDOMEN (3) Abdominal pain Current Visit: Yes Status: Acute Code(s): R10.9 - UNSPECIFIED ABDOMINAL PAIN (4) Pneumonia Current Visit: No Status: Acute Code(s): J18.9 - PNEUMONIA, UNSPECIFIED ORGANISM (5) COPD exacerbation Current Visit: No Status: Acute Code(s): J44.1 - CHRONIC OBSTRUCTIVE PULMONARY DISEASE W (ACUTE) EXACERBATION (6) Pleural effusion Current Visit: Yes Status: Acute Code(s): J90 - PLEURAL EFFUSION, NOT ELSEWHERE CLASSIFIED (7) Dehydration Current Visit: Yes Status: Resolved Code(s): E86.0 - DEHYDRATION (8) Tobacco abuse Current Visit: No Status: Chronic Code(s): Z72.0 - TOBACCO USE (9) Alcohol intoxication Current Visit: No Status: Resolved (10) RLS (restless legs syndrome) Current Visit: Yes Status: Chronic (11) Chronic back pain Current Visit: Yes Status: Chronic Code(s): M54.9 - DORSALGIA, UNSPECIFIED; G89.29 - OTHER CHRONIC PAIN (12) Lactic acidosis Current Visit: Yes Status: Resolved Code(s): E87.20 - ACIDOSIS, UNSPECIFIED (13) Weakness Current Visit: Yes Status: Acute Assessment & Plan: (1) Perforated gastric ulcer Current Visit: Yes Status: Acute Assessment & Plan: - Advanced to FLD - Pain controlled - IS/ Flutter -Oxygen at 12L oxymask- improving spo2 at 96%- titrate as appropriate - Transition to soft diet per GS and advance as tolerated - + BM's- soft - OK to d/c per GS standpoint however pt has pneumonia and not ready to d/c yet. - PT eval 04/14 - D/C to rehab when accepted - OK to transition diet as tolerated per GS 04/14 - Abd wound bleeding-surgery notified by RN 04/15 - Bleeding resolved, dressing CDI - Wound vac in place 04/16 - Wound vac in place- Nurse to ask GS about dressing change needs - CBC, CMP reviewed - WBC 13.9 - Continue antibiotics and narcotic pain control 04/16 - WBC 41.3 - Wound vac in place - CBC, CMP reviewed - Surgery following Code(s): K25.5 - CHRONIC OR UNSPECIFIED GASTRIC ULCER WITH PERFORATION (2) Perforated abdominal viscus Current Visit: Yes Status: Acute Assessment & Plan: CTA findings of pneumoperitoneum involving lesser sac, hepatic surface, and mid-abdomen consistent with hollow viscus perforation. Confirmed intraoperatively. IV antibiotics. Monitor for postoperative complications (leak, abscess, sepsis). CBC, CMP reviewed - Jyothi - every other one as directed by surgeon removed 04/14 04/15 - + Abd wound dehis with bleeding - Pt to surgery today with Dr. Mike Goodwin- awaiting further surg. recs - CBC CMP reviewed - Continue antibiotics - Morphine PRN added - Made NPO 04/16 - POD #1 from Exp lap - Dressing CDI with abd binder in place - IS - Pillow to brace for coughs - CBC, CMP reviewed - WBC 13.9 - No fever overnight - Change to full liquid diet per GS - SCD's until ok by surgery to start anticoagulation 04/17 - POD #2 from Exp lap - Dressing CDI with abd binder in place, wound vac - CBC, CMP reviewed 04/18 - POD# 3 - Dressing CDI with abd binder in place, wound vac - CBC, CMP reviewed - Surgery following Code(s): R19.8 - OTH SYMPTOMS AND SIGNS INVOLVING THE DGSTV SYS AND ABDOMEN (3) Abdominal pain Current Visit: Yes Status: Acute Assessment & Plan: - 2:2 diagnosis plans above Code(s): R10.9 - UNSPECIFIED ABDOMINAL PAIN (4) Pneumonia Current Visit: No Status: Acute Assessment & Plan: - Sputum culture with pseudomonas- continue Zosyn/flagyl - Oxygenation at 12L oxymask down from 15L with spo2 at 97%-titrate as appropriate - WBC normalized - CBC, CMP reviewed - CXR: 04/13 Portable chest again demonstrates mild/moderate bibasilar infiltrates/atelectasis/effusions, worsened on left. Remaining heart and upper lungs unremarkable. - Thoracentesis ordered on left side - No Blood cultures ordered during visit. - Duonebs, Proventil, - Solu-medrol Q8 started today 04/13 04/14 - 2lNC 92% 04/15 - 3lNC 90% - Steroids stopped d/t pt need to go to OR again- can delay healing - Continue IV antibiotics 04/16/25 - 3lNC 90% - + wheezing throughout - Continue plan above and IS 04/17 - + wheezing- RT provided breathing treatment - 2 LNC 95% 04/18 - CXR: 1. Bilateral pleural effusion - persistent on right side, increased on left side. 2. Ill-defined opacity in left lower lobe - likely suggestive of underlying collapse or consolidation - new. - Tripod breathing - Transfer to higher level of care for acute respiratory failure- [facility] - + Associated tachycardia - Lasix IV 40mg stat once gave last night - Continue Lasix IV daily dose - Agreeable to intubation if needed. Code(s): J18.9 - PNEUMONIA, UNSPECIFIED ORGANISM (5) COPD exacerbation Current Visit: No Status: Acute Assessment & Plan: - See pneumonia plan above Code(s): J44.1 - CHRONIC OBSTRUCTIVE PULMONARY DISEASE W (ACUTE) EXACERBATION (6) Pleural effusion Current Visit: Yes Status: Acute Assessment & Plan: - As seen on chest CT on 04/10: IMPRESSION: 1. No evidence of pulmonary embolism, unchanged. 2. New bilateral lower lobar consolidations and mild pleural effusion, possible infectious process/ pneumonic patches should be considered, clinical and lab correlation needed. -CXR: 04/13 Portable chest again demonstrates mild/moderate bibasilar infiltrates/atelectasis/effusions, worsened on left. Remaining heart and upper lungs unremarkable. - PT/INR - Thoracentesis labs ordered - US guided thoracentisis today with 700 ml out of left lung - Post procedure CXR: 04/13 Portable chest obtained in expiration demonstrates marked improvement left base effusion with tiny residual consistent with recent thoracentesis. No pneumothorax. Stable mild right base infiltrate/atelectasis/effusion. Remaining heart and lungs unremarkable. No new cardiopulmonary abnormalities. - O2 post procedure 96% oxymask at 12 L - RT to wean O2 as tolerated - BNP in AM - Lasix IV daily started - Consider thoracentesis in AM of Right lung - Echo in AM 04/14 - Echo results pending - Oxygen demand improved to 2lNC at 96% - Will need repeat labs and CXR Sunday - Will continue lasix OP 04/15 - 3lNC - 90% - Echo EF 68% 04/16 - 3lNC 95% 04/17 - Seen again today on CXR - BL pleural effusion - Tx to higher level of care- unable to do thoracentesis at [facility] on the weekend. Code(s): J90 - PLEURAL EFFUSION, NOT ELSEWHERE CLASSIFIED (7) Dehydration Current Visit: Yes Status: Resolved Assessment & Plan: - resolved Code(s): E86.0 - DEHYDRATION (8) Tobacco abuse Current Visit: No Status: Chronic Assessment & Plan: Heavy long-term use (34 PPD). Nicotine patch for withdrawal. Reinforced cessation counseling. Code(s): Z72.0 - TOBACCO USE (9) Alcohol intoxication Current Visit: No Status: Resolved Assessment & Plan: Assessment & Plan: History of 6 beers daily CIWA monitoring and withdrawal precautions in place. Counseling provided. (10) RLS (restless legs syndrome) Current Visit: Yes Status: Chronic Assessment & Plan: No home medications. Iron studies reviewed (11) Chronic back pain Current Visit: Yes Status: Chronic Assessment & Plan: No routine home regimen documented. - [place] Q6 PRN Code(s): M54.9 - DORSALGIA, UNSPECIFIED; G89.29 - OTHER CHRONIC PAIN (12) Lactic acidosis Current Visit: Yes Status: Resolved Assessment & Plan: Initial 2.2 improved to 1.1 with IV fluids on admission No evidence of sepsis. Code(s): E87.20 - ACIDOSIS, UNSPECIFIED (13) Weakness Current Visit: Yes Status: Acute Assessment & Plan: -Physical/Occupational Therapy Daily PT/OT to improve strength, mobility, and ADL independence. -Progressive Mobilization Ambulate with assistance; increase distance as tolerated. -Fall Precautions Bed/chair alarms, close supervision during transfers. -Discharge Planning SNF rehab recommended for continued strengthening and functional recovery. 04/16 - Peer to Peer completed- denied until more stable and can resubmit. - Case management made aware. 04/17 - PT/OT eval D/C plan of care time> 50 minutes Code(s): R53.1 - WEAKNESS - Discharge Discharge Date: 04/18/25 Disposition: DC TO [facility] Condition: Serious Prescriptions: New Docusate Sodium 100 mg [Docusate Sodium 100 MG] 100 mg PO BIDPRN PRN cap PRN Reason: Constipation Albuterol/Ipratropium 3ml Neb* [DUONEB 0.5-3 MG/3 ml Neb] 3 ml IH QIDRT Metronidazole 500 mg [Flagyl 500 MG] 500 mg PO QID tablet Furosemide 20 mg/2 ml [Lasix 20 MG/2 ML] 20 mg IV DAILY Nicotine 21 mg [Nicoderm CQ 21 MG] 21 mg TOP Q24H10 patch Piperacillin/Tazobactam 3.375G [Piperacillin/Tazobactam] 3.375 gm IV Q6HT Albuterol 2.5 mg/3 ml Neb [Proventil 2.5 mg/3 ml Neb] 2.5 mg IH Q4HPRN PRN PRN Reason: Shortness Of Breath/Wheezing Methylprednisolone Sod Suc 40M [solu-MEDROL] 40 mg IV Q12HT Acetaminophen 325 mg [Tylenol 325 mg] 650 mg PO Q4H PRN PRN tablet PRN Reason: Pain And/Or Fever Ondansetron HCl 4 mg/2 ml [Zofran 4 MG/2 ML VIAL] 4 mg IV Q6H PRN PRN PRN Reason: Nausea/Vomiting Continue Albuterol Sulfate [Proair Hfa] 2 puff IH Q4H PRN PRN Reason: Shortness Of Breath Ipratropium/Albuterol Sulfate [Iprat-Albut 0.5-3(2.5) mg/3 ml] 3 ml NEB QID PANTOPRAZOLE 40 mg Tablet [Protonix 40MG Tablet] 40 mg PO DAILY Loratadine 10 mg [Claritin 10 mg] 10 mg PO DAILY Tiotropium Br/Olodaterol HCl [Stiolto Respimat Inhaler (60)] 2.5 mcg IN DAILY Instructions: Gastrointestinal tract perforation Additional Instructions: SKILLED NURSING ORDERS: ADMIT TO HALF-WAY CARE SOFT DIET, ADVANCE TOLERATED DAILY DRY DRESSING CHANGES- LEAVE JYOTHI INTACT UNTIL FOLLOW UP ABD BINDER FOR COMFORT OXYGEN AT 3L/NC (USES AT HOME) PT/OT EVAL AND TREAT SEE ATTACHED MED LIST Follow up with: MITZY LOOMIS [Primary Care Provider, FAMILY PRACTICE] - 05/11/25 2:00 pm DILMA LAGOS [ACTIVE STAFF, PULMONARY MEDICINE] - 04/27/25 1:45 pm Referral Note: at [facility] KEELY GOODWIN [ACTIVE STAFF, GENERAL SURGERY] - 04/24/25 1:25 pm Referral Note: [facility]
[2025-04-18 16:26] VITALS: TEMP 98.2
[2025-04-18 18:56] VITALS: O2SAT 96
[2025-04-18 20:05] VITALS: BP 121/56; PULSE 109; RESP 28
[2025-04-20 11:27] LABS: pH,Body Fluid 8.2 (Not Estab.)
== END 2025-04-19 00:25 | disposition home or self-care (01) | DRG 326 ==
LOC: ED 00:29 → SDC 04:34 → MED SURG 07:35
PROVIDERS: ADMIT Internal Medicine; ATTEND Internal Medicine
PROC: 0DQ90ZZ Repair Duodenum, Open Approach (ICD-10-PCS; principal; 2025-04-15)
PROC: 0D960ZZ Drainage of Stomach, Open Approach (ICD-10-PCS; 2025-04-15)
PROC: 0DJ00ZZ Inspection of Upper Intestinal Tract, Open Approach (ICD-10-PCS; 2025-04-15)
PROC: 0WQF0ZZ Repair Abdominal Wall, Open Approach (ICD-10-PCS; 2025-04-15)
PROC: 0DH68YZ Insertion of Other Device into Stomach, Via Natural or Artificial Opening Endoscopic (ICD-10-PCS; 2025-04-15)
DX: K25.5 Chronic or unspecified gastric ulcer with perforation (principal); J18.9 Pneumonia, unspecified organism; J44.1 Chronic obstructive pulmonary disease with (acute) exacerbation; J90 Pleural effusion, not elsewhere classified; E87.20 Acidosis, unspecified; T81.31XA Disruption of external operation (surgical) wound, not elsewhere classified, initial encounter; R19.8 Other specified symptoms and signs involving the digestive system and abdomen; R10.9 Unspecified abdominal pain; E86.0 Dehydration; Z72.0 Tobacco use; M54.9 Dorsalgia, unspecified; G89.29 Other chronic pain; F10.10 Alcohol abuse, uncomplicated; R53.1 Weakness; Z79.899 Other long term (current) drug therapy